=== PATIENT | male | born 1960 | race Two or more races ===

== ENCOUNTER 2018-10-01 15:19 | Inpatient (IN) | payer OTHER ==
[2018-10-01 16:37] LABS: Basophils % (A) 1 %; Eosinophils # (A) 0.3 k/uL (0-0.7); Eosinophils % (A) 5 %; HCT 43.1 % (39.0-53.0); HGB 14.1 gm/dL (13.0-17.5); Lymphocytes # (A) 1.3 k/uL (1.0-4.8); Lymphocytes % (A) 25 %; MCH 32.6 pg (25.0-35.0); MCHC 32.6 g/dL (31.0-37.0); MCV 99.9 fL (80.0-100.0); Mean Platelet Volume 7.3; Monocytes # (A) 0.4 k/uL (0-1.0); Monocytes % (A) 7 %; Neutrophils # (A) 3.2 k/uL (1.3-7.7); Neutrophils % (A) 61 %; Platelet Count 174 k/uL (150-450); RBC 4.31 m/uL (4.30-5.90); RDW 13.7 % (11.5-15.5); WBC 5.3 k/uL (3.8-10.6)
[2018-10-01 16:47] LABS: Calcium 8.9 mg/dL (8.4-10.2); Potassium 4.4 mmol/L (3.5-5.1); Total Bilirubin 0.4 mg/dL (0.2-1.3); Total Protein 6.6 g/dL (6.3-8.2)
[2018-10-01 16:48] LABS: INR 0.9 (<1.2); Prothrombin Time 9.5 sec (9.0-12.0)
--- NOTE | 2018-10-01 16:59 | ED ---
Extremity Problem HPI - General Chief complaint: Extremity Problem,Nontraumatic Stated complaint: rt leg pain Time Seen by Provider: 10/01/18 15:39 Source: patient, RN notes reviewed Mode of arrival: ambulatory Limitations: no limitations - History of Present Illness Initial comments: 58-year-old male presents emergency Department chief complaint of leg pain, leg swelling. Patient states she's had a long history of vascular issues in which she's had multiple varicosities and he's developed sores recently. Patient states that he is supposed to follow-up with vascular years ago but states never did he also states he has a history A. fib with states that he never started anticoagulants. He denies any chest pain or shortness breath this time. Canelo roth states states that he cannot tolerate the pain in his legs anymore. Patient states is much worse when he stands or walks. Patient states that the sores in his right leg have recently developed along with some bluish and purple discoloration - Related Data Previous Rx's Medication Instructions Recorded Aspirin 81 mg PO DAILY #30 chew 02/05/17 Levofloxacin [Levaquin] 750 mg PO Q24H #5 tab 02/05/17 Lisinopril [Zestril] 5 mg PO DAILY #30 tab 02/05/17 Metoprolol Succinate (ER) [Toprol 12.5 mg PO DAILY #30 tab.er.24h 02/05/17 XL] predniSONE See Taper PO DAILY #21 tab 02/05/17 Allergies Allergy/AdvReac Type Severity Reaction Status Date / Time No Known Allergies Allergy Verified 10/01/18 15:32 Review of Systems ROS Statement: Those systems with pertinent positive or pertinent negative responses have been documented in the HPI. ROS Other: All systems not noted in ROS Statement are negative. Past Medical History Past Medical History: No Reported History Additional Past Medical History / Comment(s): alcoholism and smoker History of Any Multi-Drug Resistant Organisms: None Reported Past Surgical History: Tonsillectomy Past Psychological History: Anxiety Smoking Status: Current every day smoker Past Alcohol Use History: Abuse, Daily Past Drug Use History: None Reported - Past Family History Mother Family Medical History: Diabetes Mellitus, Hypertension Father Family Medical History: CVA/TIA, Myocardial Infarction (MS) General Exam Limitations: no limitations General appearance: alert, in no apparent distress Head exam: Present: atraumatic, normocephalic, normal inspection Eye exam: Present: normal appearance, PERRL, EOMI. Absent: scleral icterus, conjunctival injection, periorbital swelling Neck exam: Present: normal inspection, full ROM. Absent: tenderness, mening ismus, lymphadenopathy Respiratory exam: Present: normal lung sounds bilaterally. Absent: respiratory distress, wheezes, rales, rhonchi, stridor Cardiovascular Exam: Present: regular rate, normal rhythm, normal heart sounds. Absent: systolic murmur, diastolic murmur, rubs, gallop, clicks Extremities exam: Present: other (Bilateral lower extremities there are multiple varicosities and spider veins noted, unable to palpate pulses a right lower extremity pedal pulses are warm, , there are open sores to right lower extrem ity) Skin exam: Present: warm, dry Course Vital Signs 10/01/18 15:29 Temperature 97.9 F Pulse Rate 58 L Respiratory 16 Rate Blood Pressure 167/84 O2 Sat by Pulse 98 Oximetry Medical Decision Making - Medical Decision Making 58-year-old male presented for leg pain. Patient does have notable swelling to the right leg. Patient was evaluated by Dr. Sams in the emergency Department who recommends patient be started on heparin he did discuss case with Dr. sanchez who will do angiogram tomorrow patient is NPO after tonight. - Lab Data Result diagrams: 10/01/18 16:23 10/01/18 16:23 Lab Results 10/01/18 10/01/18 10/01/18 Range/Units 16:23 16:23 16:23 WBC 5.3 (3.8-10.6) k/uL RBC 4.31 (4.30-5.90) m/uL Hgb 14.1 (13.0-17.5) gm/dL Hct 43.1 (39.0-53.0) % MCV 99.9 (80.0-100.0) fL MCH 32.6 (25.0-35.0) pg MCHC 32.6 (31.0-37.0) g/dL RDW 13.7 (11.5-15.5) % Plt Count 174 (150-450) k/uL Neutrophils % 61 % Lymphocytes % 25 % Monocytes % 7 % Eosinophils % 5 % Basophils % 1 % Neutrophils # 3.2 (1.3-7.7) k/uL Lymphocytes # 1.3 (1.0-4.8) k/uL Monocytes # 0.4 (0-1.0) k/uL Eosinophils # 0.3 (0-0.7) k/uL Basophils # 0.0 (0-0.2) k/uL PT 9.5 (9.0-12.0) sec INR 0.9 (<1.2) APTT 26.0 (22.0-30.0) sec Sodium 138 (137-145) mmol/L Potassium 4.4 (3.5-5.1) mmol/L Chloride 105 (98-107) mmol/L Carbon Dioxide 27 (22-30) mmol/L Anion Gap 6 mmol/L BUN 18 (9-20) mg/dL Creatinine 1.16 (0.66-1.25) mg/dL Est GFR (CKD-EPI)AfAm 81 (>60 ml/min/1.73 sqM) Est GFR (CKD-EPI)NonAf 70 (>60 ml/min/1.73 sqM) Glucose 78 (74-99) mg/dL Calcium 8.9 (8.4-10.2) mg/dL Total Bilirubin 0.4 (0.2-1.3) mg/dL AST 39 (17-59) U/L ALT 26 (21-72) U/L Alkaline Phosphatase 67 (38-126) U/L Total Protein 6.6 (6.3-8.2) g/dL Albumin 4.0 (3.5-5.0) g/dL Disposition Clinical Impression: Peripheral vascular disease, Arterial insufficiency of lower extremity Disposition: ADMITTED IP TO THIS [facility] Condition: Fair Referrals: None,Stated [Primary Care Provider] - 1-2 days
[2018-10-01] MEDS ORDERED: HEPARIN SODIUM,PORCINE 5,000 UNIT/ML 1 ML VIAL IV ONE (17:00)
[2018-10-01] MEDS ORDERED: NALOXONE 0.4 MG/ML 1 ML VIAL IV PRN (17:01)
[2018-10-01] MEDS ORDERED: ONDANSETRON 4 MG/2 ML VIAL IVP PRN (17:01)
[2018-10-01] MEDS: SODIUM CHLORIDE 0.9% 1,000 ML IV SCH (17:17)
[2018-10-01] MEDS: HEPARIN SOD,PORK IN 0.45% NACL 25,000 UNIT in 0.45% NACL 1 250ML.BAG IV SCH (17:24)
--- NOTE | 2018-10-01 18:55 | CONS ---
DATE OF CONSULTATION: 10/01/2018 This is a 58 -year-old gentleman who came to the emergency room with history of pain in the right lower extremity for the past 1 month. The patient has not seen any physician and there is no history of diabetes. The patient has history of some discomfort in right lower extremity. PHYSICAL EXAMINATION: NECK: Supple. Trachea central. CHEST: Clear. ABDOMEN: Soft. Femorals are 2+ bilateral. Right foot posterior dorsalis pedis is not palpable. Patient has extensive varicosity involving the right lower extremity and anterior aspect of the thigh. The left side patient has a posterior tibial, dorsalis pedis by the Doppler. Motor functions are present on the right foot. IMPRESSION: Occlusive disease, most likely popliteal in right lower extremity. PLAN: We will put him on heparin and the patient will need aortogram with runoff. I have discussed this case with Dr. Chris Lemus and he will arrange for angiogram tomorrow. N.p.o. Midnight. Continue with heparin. Thank you for this consultation. MMYOGESH / KRISTALN: [id number] / MTDBernard
--- NOTE | 2018-10-01 19:45 | CT ---
EXAMINATION TYPE: CT angio abd aorta w/Runoff with contrast and with 3-D reconstruction renderings DATE OF EXAM: 10/01/2018 COMPARISON: None HISTORY: Right sided leg pain CT DLP: 411.7 mGycm, Automated Exposure Control for Dose Reduction was Utilized. CONTRAST: CT scan of the abdomen and pelvis is performed with oral and with IV Contrast, patient inje cted with 125 mL of Isovue 370. FINDINGS: LUNG BASES: No acute findings, but coronary calcifications are noted. LIVER/GB: No significant abnormality is appreciated. PANCREAS: No significant abnormality is seen. SPLEEN: No significant abnormality is seen. ADRENALS: No significant abnormality is seen. KIDNEYS: No significant abnormality is seen. BOWEL: No significant abnormality is seen. PROSTATE/SEMINAL VESICLES: No gross abnormality seen. LYMPH NODES: No greater than 1cm abdominal or pelvic lymph nodes are appreciated. OSSEOUS STRUCTURES: No significant abnormality is seen. VASCULATURE: The abdominal pelvic arterial vasculature is nonaneurysmal. The mesenteric and renal art erial systems are widely patent. The aortoiliac inflow is widely patent. The right internal iliac art erial system occludes shortly after its takeoff. The left internal iliac arterial system is widely pa tent. On the ipsilateral right, the right external iliac, right PICKLE PUMPER, and right profunda femoral artery and collaterals are widely patent. The right SFA occludes approximately 4 cm distal to its origin, recons tituting as the right popliteal artery via collaterals for a 3 vessel runoff. On the contralateral left, the left external iliac artery, PICKLE PUMPER, SFA and profunda femoral arterial sys tems are widely patent, as is the left popliteal artery for a 3 vessel runoff. IMPRESSION: OCCLUDED RIGHT SUPERFICIAL FEMORAL ARTERY, WITH RECONSTITUTION THE RIGHT POPLITEAL ARTERY WITH A 3 VESSEL RUNOFF.
[2018-10-01 19:48] VITALS: BMI 23.7
[2018-10-01] MEDS ORDERED: LORazepam 2 MG/ML INJ IV PRN ×3 (20:25)
--- NOTE | 2018-10-01 20:41 | P.HPIM ---
History of Present Illness H&P Date: 10/01/18 Chief Complaint: Right leg pain and intermittent claudications 58-year-old male with history of paroxysmal A. fib, alcohol dependence and smoking addiction Patient doesn't see a doctor doesn't have insurance. Patient decided come to the hospital today due to worsening pain of his right lower extremity. He reports long history of varicose veins of bilateral lower extremities however due to lack of insurance he was never able to follow up. He noticed over the past month that his pain to right lower extremity has been getting worse he also noticed what seems like intermittent claudication as pain increases over his right thigh and right calf muscle when he walks around and then feels burning sensation that does not radiate rated as 10 out of 10 in severity and this pain will improve with standing up and resting or sitting down. Patient feels that his legs become more heavy toward the end of the day he works as a [employer] and he will be standing up long hours he doesn't use any compression stockings. He doesn't raise his legs above his pelvis when he sits down. He feels a gush of blood flowing down his legs in the morning when he gets out of the bed. He reports itching over his bilateral lower extremities with superficial ulcers due to scratching. Otherwise he denies any shortness of breath fevers or chills. He does report some chest discomfort "heavy chest"when he gets anxious and overworked. But denies any anginal type of pain when he walks long distances however pain in his leg will limit his walking. He denies ever having colonoscopy done or any cardiac workup in the past. He admits to heavy smoking pack and a half every day. And regular alcohol drinking 3-4 beers every day. In the ED he was evaluated by vascular surgery, CT angios the lower extremities showed right superficial femoral artery occlusion plans for angiogram in the morning. Per vascular surgery recommendation patient was started on heparin drip Review of Systems Pertinent positives as noted in HPI. All other systems were reviewed and are negative Past Medical History Past Medical History: No Reported History, Atrial Fibrillation Additional Past Medical History / Comment(s): alcoholism and smoker History of Any Multi-Drug Resistant Organisms: None Reported Past Surgical History: Tonsillectomy Past Anesthesia/Blood Transfusion Reactions: No Reported Reaction Past Psychological History: Anxiety Smoking Status: Current some day smoker Past Alcohol Use History: Abuse, Daily Additional Past Alcohol Use History / Comment(s): pt stated he drank a couple cases of beer a week, currently drinks 3-4 beers a day. Past Drug Use History: None Reported - Past Family History Mother Family Medical History: Diabetes Mellitus, Hypertension Father Family Medical History: CVA/TIA, Myocardial Infarction (SD) Medications and Allergies Home Medications Medication Instructions Recorded Confirmed Type No Known Home Medications 10/01/18 10/01/18 History Allergies Allergy/AdvReac Type Severity Reaction Status Date / Time No Known Allergies Allergy Verified 10/01/18 18:07 Physical Exam Vitals: Vital Signs Temp Pulse Pulse Resp BP BP Pulse Ox 10/01/18 19:14 98 F 85 18 158/74 98 10/01/18 18:54 98.2 F 64 18 160/70 98 10/01/18 18:47 98.6 F 73 15 153/86 97 10/01/18 15:29 97.9 F 58 L 16 167/84 98 Intake and Output 10/01/18 10/01/18 10/01/18 06:59 14:59 22:59 Intake Total 580 Balance 580 Intake: Intake, IV Titration 100 Amount Sodium Chloride 0.9% 1, 100 000 ml @ 100 mls/hr IV . Q10H [facility] Rx#:[id number] Oral 480 Other: Weight 72.575 kg Constitutional: No acute distress, conversant, pleasant Eyes: Anicteric sclerae, moist conjunctiva, no lid-lag Pupils equal round reactive to light ENMT: NC/AT Oropharynx clear, no erythema, exudates Neck: Supple, FROM, no masses, or JVD No carotid bruits No thyromegaly Lungs: Clear to auscultation Clear to percussion Normal respiratory effort, no accessory muscle use Cardiovascular: Heart regular in rate and rhythm, No murmurs, gallops, or rubs No peripheral edema Abdominal: Soft Nontender, no guarding, rebound or rigidity Abdomen moving with respiration Normoactive bowel sounds No hepatomegaly, No splenomegaly No palpable mass No abdominal wall hernia noted Skin: Diffuse superficial varicose veins bilateral lower extremity with superficial ulcers covered by his, surrounded by slight erythema no induration no drainage , chronic skin changes over bilateral feet worse on the right compared to the left with purplish discoloration of the right foot Otherwise Normal temperature, tone, texture, turgor Extremities: Capillary refill is immediate over bilateral toes No digital cyanosis No clubbing Dorsalis pedis and tibialis artery on the right side is weak, palpable over the left side tibialis artery but not the dorsalis pedis No calf tenderness Psychiatric: Alert and oriented to person, place and time Appropriate affect fair judgment Neuro Muscles Strength 5/5 in all 4 extremities Sensation to light touch grossly present throughout Cranial nerves II-XII grossly intact No focal sensory deficits Lymphatics: no palpable cervical or supraclavicular , or inguinal lymph nodes Results CBC & Chem 7: 10/01/18 16:23 10/01/18 16:23 Thrombosis Risk Factor Assmnt - Choose All That Apply Any of the Below Risk Factors Present?: Yes Each Factor Represents 1 point: Age 41-60 years, Swollen legs (current), Varicose veins Thrombosis Risk Factor Assessment Total Risk Factor Score: 3 Thrombosis Risk Factor Assessment Level: Moderate Risk Assessment and Plan Assessment: 58-year-old male with history of paroxysmal A. fib and bilateral varicose veins admitted as an inpatient with anticipated length of stay more than 48 hours due to acute right femoral artery occlusion with severe intermittent claudications and pain of the right lower extremity along with bilateral lower extremity varicose veins. Patient also reports history of alcohol dependence Plan: right superficial femoral artery occlusion Severe intermittent claudications of right lower extremities Varicose veins of bilateral lower extremities paroxysmal A. fib Alcohol dependence Plan Patient was evaluated by vascular surgery Dr. Grace recommended angiogram by Dr. Fagan in the morning CT angiogram of the lower extremities reviewed showed right superficial femoral artery occlusion reconstituting as the right popliteal artery via collaterals for three-vessel runoff continue IV heparin per vascular recommendations check echo cardiogram with histroy of P afib pain control elevate legs Aspirin and statin alcohol withdrawal precautions thiamin benzo prn per [facility] group social worker consult to assist with insurance Tobacco smoking Dictating replacement therapy offered Patient counseled heavily to quit smoking, spent more than 8 minutes in counseling Surrogate decision-maker: MANDY NOYOLA CODE STATUS:full code DVT prophylaxis: on heparin drip Discussed with: Patient, ER , RN Anticipated discharge: 48-[address]: home A total of 60 minutes was spent on the care of this complex patient more than 50% of the time was spent in counseling and care coordination.
[2018-10-01] MEDS: ATORVASTATIN 40 MG TAB PO SCH (21:07)
[2018-10-01] MEDS: HYDROcodone/APAP 5-325MG 1 EACH TAB PO PRN (21:07)
[2018-10-01] MEDS: MELATONIN 3 MG TABLET PO SCH (21:07)
[2018-10-01] MEDS: ASPIRIN 325 MG TAB PO SCH (21:07)
[2018-10-01] MEDS: NICOTINE 21MG/24HR PATCH TRANSDERM SCH (21:08)
[2018-10-02] MEDS: HYDROcodone/APAP 5-325MG 1 EACH TAB PO PRN ×4 (01:49→23:26)
[2018-10-02] MEDS: SODIUM CHLORIDE 0.9% 1,000 ML IV SCH ×3 (04:38→23:56)
[2018-10-02] MEDS: ASPIRIN 325 MG TAB PO SCH (08:16)
[2018-10-02] MEDS: THIAMINE 100 MG TAB PO SCH ×2 (08:16→16:54)
[2018-10-02 08:17] LABS: INR 0.9 (<1.2); Prothrombin Time 9.7 sec (9.0-12.0)
[2018-10-02] MEDS: NICOTINE 21MG/24HR PATCH TRANSDERM SCH (08:17)
[2018-10-02 08:20] LABS: Cholesterol 143 mg/dL (<200); HDL Cholesterol 63 mg/dL (40-60); LDL Cholesterol,Calculated 68 mg/dL (0-99); Triglycerides 62 mg/dL (<150)
--- NOTE | 2018-10-02 09:04 | P.PN ---
Subjective Progress Note Date: 10/02/18 Patient is seen and examined. Foot feels a little better but essentially the same as yesterday. In discussion and gave that he has had this pain in his legs for the past month and a half to 2 months. He gets some sharp shooting pains in his foot, and also some cramping in his calf when he does activities. He has significant varicosities and heaviness of his leg space and lot of time on his feet. He came in yesterday only because he was frustrated and fed up with his chronic type pains. No significant acute event or change in his pain overall Objective - Vital Signs Vital signs: Vital Signs Temp 98.0 F 10/02/18 04:00 Pulse 55 L 10/02/18 04:00 Resp 15 10/02/18 04:00 BP 128/67 10/02/18 04:00 Pulse Ox 96 10/02/18 04:00 Intake & Output 10/01/18 10/02/18 10/02/18 18:59 06:59 18:59 Intake Total 580 871.849 Balance 580 871.849 Weight 72.575 kg Intake: Intake, IV Titration 100 871.849 Amount Heparin Sod,Pork in 0.45% 71.849 NaCl 25,000 unit In 0.45 % NaCl 1 250ml.bag @ 12 UNITS/KG/HR 8.709 mls/hr IV .Q24H [facility] Rx#: [id number] Sodium Chloride 0.9% 1, 100 800 000 ml @ 100 mls/hr IV . Q10H [facility] Rx#:[id number] Oral 480 Other: Voiding Method Toilet # Voids 2 - Exam No acute distress resting comfortably, disheveled HEENT normocephalic atraumatic Heart regular Lungs clear Abdomen soft Bilateral lower extremities with severe varicosities in the bilateral legs. On the left lower extremity has a palpable posterior tibial pulse. No evident large wounds. On the right lower extremity at the level of the calf there are 2 areas of excoriation and wound. They're clean, no evidence of infection. There are no palpable pulses in his right foot. His foot is warm. There is capillary refill. He is motor sensory intact. Both of his feet are dirty - Labs CBC & Chem 7: 10/01/18 16:23 10/01/18 16:23 Labs: Abnormal Lab Results - Last 24 Hours (Table) 10/01/18 10/02/18 10/02/18 Range/Units 22:10 07:43 07:45 APTT 43.4 H 47.0 H (22.0-30.0) sec HDL Cholesterol 63 H (40-60) mg/dL Assessment and Plan Assessment: #1 right lower cavity pain #2 right superficial femoral artery occlusion with reconstitution at the popliteal artery and three-vessel runoff #3 bilateral lower extremity venous insufficiency with varicosities Plan: Given the fact this is not an acute ischemia, no urgency or emergency to perform angiogram. Continue heparin drip at this time. We'll perform angiogram terrance orrow with possible intervention. Patient is anxious and somewhat demanding of a timeframe to leave. It was offered him the opportunity to be discharged and do this as an outpatient, but he refused and stated he would like to go along with the plan to do this inpatient. We'll attempt endovascular repair, may need bypass if no endovascular treatment available
--- NOTE | 2018-10-02 11:54 | ECHOF ---
Referral Reason:P afib, now with occlusion of right SFA MEASUREMENTS -------- HEIGHT: 177.8 cm WEIGHT: 72.6 kg BP: 128/67 RVIDd: 4.0 cm (< 3.3) IVSd: 1.0 cm (0.6 - 1.1) LVIDd: 5.1 cm (3.9 - 5.3) LVPWd: 1.0 cm (0.6 - 1.1) IVSs: 1.1 cm LVIDs: 3.8 cm LVPWs: 1.4 cm LAESV Index (A-L): 40.61 ml/m Ao Diam: 2.9 cm (2.0 - 3.7) AV Cusp: 1.9 cm (1.5 - 2.6) LA Diam: 4.4 cm (2.7 - 3.8) EPSS: 0.3 cm MV E Srinivasa: 0.96 m/s MV DecT: 237 ms MV A Srinivasa: 0.41 m/s MV E/A Ratio: 2.33 AR PHT: 749 ms RAP: 5.00 mmHg RVSP: 35.50 mmHg MV EF SLOPE: 108.68 mm/s (70 - 150) MV EXCURSION: 1.99 cm (> 18.000) FINDINGS -------- Sinus rhythm with extra systolic beats. This was a technically good study. The left ventricular size is normal. Left ventricular wall thickness is normal. Overall left vent ricular systolic function is mildly impaired with, an EF between 45 - 50 %. Both the mean atrial pr essure as well as the LV end diastolic pressure is elevated. The right ventricle is severely enlarged. Left atrium is severely dilated by volume. The right atrium is mildly enlarged. Interatrial and interventricular septum intact. The aortic valve is trileaflet and appears structurally normal. Trace to mild aortic regurgitation. There is no evidence of aortic stenosis. The mitral valve leaflets are mildly thickened. [id number] mitral regurgitation is present. Mild tricuspid regurgitation present. There is mild pulmonary hypertension. The right ventricular systolic pressure, as measured by Doppler, is 35.50mmHg. Trace/mild (physiologic) pulmonic regurgitation. The aortic root size is normal. The inferior vena cava is mildly dilated. There is no pericardial effusion. CONCLUSIONS -------- 1. Sinus rhythm with extra systolic beats. 2. This was a technically good study. 3. The left ventricular size is normal. 4. Left ventricular wall thickness is normal. 5. Overall left ventricular systolic function is mildly impaired with, an EF between 45 - 50 %. 6. Both the mean atrial pressure as well as the LV end diastolic pressure is elevated. 7. The right ventricle is severely enlarged. 8. Left atrium is severely dilated by volume. 9. The right atrium is mildly enlarged. 10. Interatrial and interventricular septum intact. 11. The aortic valve is trileaflet and appears structurally normal. 12. Trace to mild aortic regurgitation. 13. There is no evidence of aortic stenosis. 14. The mitral valve leaflets are mildly thickened. 15. [id number] mitral regurgitation is present. 16. Mild tricuspid regurgitation present. 17. There is mild pulmonary hypertension. 18. The right ventricular systolic pressure, as measured by Doppler, is 35.50mmHg. 19. Trace/mild (physiologic) pulmonic regurgitation. 20. The aortic root size is normal. 21. The inferior vena cava is mildly dilated. 22. There is no pericardial effusion. SUIT MAKER: Jen Sandoval RDCS
--- NOTE | 2018-10-02 13:35 | P.PN ---
Subjective Progress Note Date: 10/02/18 The patient is seen and examined and follow-up, and reports pain in his right lower extremities controlled. Patient does have scattered arterial ulcers on his legs bilaterally, reports that the swelling of the right lower extremity is much improved. Denies any severe redness or subjective fevers or chills Objective - Vital Signs Vital signs: Vital Signs Temp 98.1 F 10/02/18 12:00 Pulse 74 10/02/18 12:00 Resp 16 10/02/18 12:00 BP 142/67 10/02/18 12:00 Pulse Ox 95 10/02/18 12:00 Intake & Output 10/01/18 10/02/18 10/02/18 18:59 06:59 18:59 Intake Total 580 871.849 Balance 580 871.849 Weight 72.575 kg Intake: Intake, IV Titration 100 871.849 Amount Heparin Sod,Pork in 0.45% 71.849 NaCl 25,000 unit In 0.45 % NaCl 1 250ml.bag @ 12 UNITS/KG/HR 8.709 mls/hr IV .Q24H [facility] Rx#: [id number] Sodium Chloride 0.9% 1, 100 800 000 ml @ 100 mls/hr IV . Q10H [facility] Rx#:[id number] Oral 480 Other: Voiding Method Toilet Toilet # Voids 2 - Exam Constitutional: No acute distress, conversant, pleasant Eyes: Anicteric sclerae, moist conjunctiva, no lid-lag, PERRLA ENMT: NC/AT,Oropharynx clear, no erythema, exudates Neck:Supple, FROM, no masses, or JVD, No carotid bruits; No thyromegaly Lungs: Clear to auscultation, Clear to percussion, Normal respiratory effort, no accessory muscle use Cardiovascular: Heart regular in rate and rhythm, No murmurs, gallops, or rubs no peripheral edema Abdominal: Soft Nontender, nom distended, no guarding, no rebound or rigidity, Normoactive bowel sounds No hepatomegaly, No splenomegaly, No palpable mass No abdominal wall hernia noted Skin: Normal temperature, tone, texture, turgor, No induration No subcutaneous nodules, No rash, lesions, arterial ulcers without signs of infection Extremities: Bilateral lower extremity varicosities palpable left posterior tibial pulse, no palpable pulses in the right foot, warm, with capillary refill, Psychiatric: Alert and oriented to person, place and time, Appropriate affect Intact judgement Neuro: Muscles Strength 5/5 in all 4 extremities, Sensation to light touch grossly present throughout, Cranial nerves II-XII grossly intact. No focal sensory deficits - Labs CBC & Chem 7: 10/01/18 16:23 10/01/18 16:23 Labs: Abnormal Lab Results - Last 24 Hours (Table) 10/01/18 10/02/18 10/02/18 Range/Units 22:10 07:43 07:45 APTT 43.4 H 47.0 H (22.0-30.0) sec HDL Cholesterol 63 H (40-60) mg/dL Assessment and Plan (1) Arterial insufficiency of lower extremity Narrative/Plan: * CT angiography of the leg indicating Right superficial femoral artery occlusion with reconsideration of the popliteal artery three-vessel runoff * Likely acute on chronic * Appreciate Dr. Nuno's recommendation planning to do arterial angiography with possible thrombolysis tomorrow with possible endovascular repair * Continue heparin drip per protocol * Continue aspirin and statins Current Visit: Yes Status: Acute Code(s): I73.9 - PERIPHERAL VASCULAR DISEASE, UNSPECIFIED SNOMED Code(s): 610685069354708 (2) Peripheral vascular disease Narrative/Plan: * Treatment as above Current Visit: Yes Status: Chronic Code(s): I73.9 - PERIPHERAL VASCULAR DISEASE, UNSPECIFIED SNOMED Code(s): 898988717 (3) History of atrial fibrillation Narrative/Plan: * History of Paroxysmal A. fib * Currently in sinus rhythm Current Visit: Yes Status: Acute Code(s): Z86.79 - PERSONAL HISTORY OF OTHER DISEASES OF THE CIRCULATORY SYSTEM SNOMED Code(s): 034090144 (4) Systolic CHF Narrative/Plan: * Ejection fraction with mildly impaired EF of 45-50%, severely dilated left atrium, mild to moderate MR, mild TR and mild pulmonary artery hypertension * Clinically euvolemic without an acute exacerbation at this time Current Visit: Yes Status: Chronic Code(s): I50.20 - UNSPECIFIED SYSTOLIC (CONGESTIVE) HEART FAILURE SNOMED Code(s): 44933701 (5) Tobacco abuse Narrative/Plan: * Initiate a nicotine transdermal patch Current Visit: No Status: Chronic Code(s): Z72.0 - TOBACCO USE SNOMED Code(s): 081595731 (6) Chronic alcohol dependence, continuous Narrative/Plan: * Continuous symptom triggered CIWA protocol with Ativan Current Visit: Yes Status: Chronic Code(s): F10.20 - ALCOHOL DEPENDENCE, UNCOMPLICATED SNOMED Code(s): 137604323 Plan: * Continue current management * Cardiology consulted for preop clearance, also might need anticoagulation ongoing given patient does have heart failure and history of A. fib * Appreciate consultants recommendations and plan of care
[2018-10-02] MEDS: HEPARIN SOD,PORK IN 0.45% NACL 25,000 UNIT in 0.45% NACL 1 250ML.BAG IV SCH (16:54)
[2018-10-02] MEDS: MELATONIN 3 MG TABLET PO SCH (21:47)
[2018-10-02] MEDS: ATORVASTATIN 40 MG TAB PO SCH (21:47)
[2018-10-02] MEDS ORDERED: HEPARIN SODIUM,PORCINE 5,000 UNIT/ML 1 ML VIAL IV PRN (22:27)
[2018-10-03 06:14] LABS: INR 0.9 (<1.2); Partial Thromboplastin Time 45.2 sec (22.0-30.0); Prothrombin Time 9.9 sec (9.0-12.0)
[2018-10-03] MEDS ORDERED: MIDAZOLAM (PF) 2 MG/2 ML VIAL IVP ONE (07:50)
[2018-10-03] MEDS: fentaNYL (PF) 50 MCG/ML 2 ML AMP IV ONE ×2 (07:50→09:04)
[2018-10-03] MEDS ORDERED: LIDOCAINE 1% INJ 10MG/ML (20 ML MDV) SQ ONE (07:51)
[2018-10-03] MEDS ORDERED: SODIUM CHLORIDE 0.9% 500 ML 500 ML IV ONE (07:52)
[2018-10-03] MEDS ORDERED: HEPARIN SODIUM 1,000 UN/ML (10ML VL) IV ONE (08:07)
[2018-10-03] MEDS ORDERED: ALTEPLASE 10 MG in SODIUM CHLORIDE 0.9% 50 ML IVPB ONE (08:29)
[2018-10-03] MEDS ORDERED: ALTEPLASE BOLUS 1 MG/1 ML SYRINGE IV ONE (08:44)
[2018-10-03] MEDS ORDERED: ALTEPLASE 2 MG VIAL (CATHFLO) IV ONE (08:45)
[2018-10-03] MEDS ORDERED: IOPAMIDOL-250 100ML BTL INTRAARTER ONE (09:04)
[2018-10-03] MEDS ORDERED: HEPARIN SOD,PORK IN 0.45% NACL 25,000 UNIT in 0.45% NACL 1 250ML.BAG IV ONE (09:05)
[2018-10-03 09:36] LABS: Glucose,Whole Blood 93 mg/dL (75-99)
--- NOTE | 2018-10-03 09:37 | P.OP ---
Date of Procedure: 10/03/18 Description of Procedure: Preoperative diagnosis: Acute on chronic right lower extremity ischemia, [place] 4 Postoperative diagnosis: Same, superficial femoral artery occlusion with reconstitution at the popliteal artery, 3 vessel runoff below knee Procedure: #1 ultrasound guided left common femoral artery access #2 aortoiliac angiogram #3 selective right lower extremity angiogram #4 third order right lower extremity infrapopliteal angiogram #5 initiation of thrombolysis with 30cm unifuse catheter #6 moderate conscious sedation utilizing Versed and fentanyl, 59 minutes Surgeon: Karolina Nuno D.O. EBL: Minimal Urine output: Not measured Complications: None Condition: Stable, to ICU Operative indication and findings: The patient is a 58-year-old male who came in for right lower excision the pain. He has been having this for at least the past month and a half. He has cramping in his leg and recently began having more significant continuous pain into his foot. He still is motor sensory intact. He has not seen a physician in the past. He has palpable pulses on his left lower extremity. On his right there are no palpable pulses. On CT angiogram he had evidence of an occluded right superficial femoral artery with reconstitution at the popliteal artery. This was confirmed on our imaging with 3 vessel runoff below the knee Procedure in detail: The patient was taken to the special suite and placed in supine position the bilateral groins were prepped and draped in usual sterile f ashion. A preprocedure timeout was performed, all parties are in agreement. Moderate conscious sedation was initiated. The ultrasound was utilized in the left common femoral artery was identified. The skin overlying this is likely plain and a micropuncture needle was utilized. The artery was cannulated under ultrasound guidance and Seldinger technique was performed place a 5-Luxembourger sheath. A wire was placed along with an RBI catheter, and aortoiliac angiogram was performed. The right lower exam he was selected and the catheter was passed. An angiogram of the right lower extremity was performed revealing occlusion of the right superficial femoral artery approximate 4-5 cm beyond the bifurcation with reconstitution at the level of the above-knee popliteal artery. Utilizing a glide advantage and trailblazer, the lesion was crossed. That did appear to be somewhat more soft field to the area crossed. Given this along with the imaging previously, it was found the patient be best served by thrombolysis to better delineate the pathology. A infrapopliteal injury and was performed confirming true lumen at this spot. The trailblazer catheter was removed, a 6 Bárbara sheath was placed. A 135 x 30 length infusion catheter was placed. All sites were sutured in place. TPA 4 mg was instilled into the catheter and then a TPA drip was initiated, 1 mg per hour. We will come back for repeat imaging and TPA rechecked tomorrow.
[2018-10-03 10:24] LABS: Basophils % (A) 1 %; Eosinophils # (A) 0.2 k/uL (0-0.7); Eosinophils % (A) 4 %; HCT 48.3 % (39.0-53.0); HGB 15.7 gm/dL (13.0-17.5); Lymphocytes % (A) 21 %; MCH 33.3 pg (25.0-35.0); MCHC 32.6 g/dL (31.0-37.0); Macrocytosis Slight; Mean Platelet Volume 7.6; Monocytes # (A) 0.3 k/uL (0-1.0); Monocytes % (A) 6 %; Neutrophils # (A) 3.4 k/uL (1.3-7.7); Neutrophils % (A) 68 %; Platelet Count 145 k/uL (150-450); RBC 4.73 m/uL (4.30-5.90); RDW 14.7 % (11.5-15.5)
[2018-10-03 10:34] LABS: African American GFR (CKD) >90 (>60 ml/min/1.73 sqM); Anion Gap 4 mmol/L; Blood Urea Nitrogen 10 mg/dL (9-20); Calcium 8.6 mg/dL (8.4-10.2); Carbon Dioxide 29 mmol/L (22-30); Chloride 105 mmol/L (98-107); Glucose 126 mg/dL (74-99); Potassium 4.5 mmol/L (3.5-5.1); Sodium 138 mmol/L (137-145)
[2018-10-03 10:49] LABS: INR 0.9 (<1.2); Partial Thromboplastin Time 53.9 sec (22.0-30.0); Prothrombin Time 9.8 sec (9.0-12.0)
--- NOTE | 2018-10-03 10:51 | P.CNPUL ---
History of Present Illness Consult date: 10/03/18 Requesting physician: Dora Sheehan Reason for consult: other (Critical care management) Chief complaint: Right lower extremity tingling and numbness pain History of present illness: This is a very pleasant 58-year-old gentleman with no current primary care physician, a history of paroxysmal atrial fibrillation, daily alcohol dependence. He does have a 26 year smoking history at 1-1-1/2 packs per day. He does take Claritin for occasional sinus issues. 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 He does have multiple varicosities of the lower extremities. He has been having ongoing issues with lower right extremity discomfort. Mostly that and pain tingling and numbness. Dramatic claudication. He's noted some discoloration as well. He presented to the emergency room on 10/01/[address] angiogram revealed occluded right superficial femoral artery with reconstitution his right popliteal artery with a 3 vessel runoff. Echocardiogram revealed mildly impaired left ventricular systolic function with ejection fraction 45-50%. Early this morning he was seen by vascular surgery and had undergone an ultrasound-guided left common femoral artery access, aortoiliac angiogram and initiation of thrombolytic lysis with 30 cm in diffuse catheter placement. He was returned here to the intensive care unit while the alteplase is infusing. He is seen this morning in consultation in the ICU. He is awake and alert in no acute distress. No shortness of breath, cough or congestion. Maintaining good O2 saturations in the 90s on room air. 0.9 normal saline at 100. Alteplase infusing at 1 mg per hour. Catheter placed to the left femoral artery and the tip in the right lower extremity towards the popliteal artery. Doppler pedal pulses are present. White count 5.0. Hemoglobin 15.7. NicoDerm patch in place. He's been placed in the CIWA protocol. Review of Systems REVIEW OF SYSTEMS: CONSTITUTIONAL: Denies any recent significant weight loss or weight gain. EYES: Denies change in vision. EARS, NOSE, MOUTH, THROAT: Denies headaches, denies sore throat. CARDIOVASCULAR: Denies chest pain, palpitations or syncopal episodes. RESPIRATORY: Denies shortness of breath, cough, congestion or hemoptysis. GASTROINTESTINAL: Denies change in appetite, denies abdominal pain GENITOURINARY: Denies hematuria, denies infections. MUSKULOSKELETAL: Positive for right lower extremity pain, tingling, numbness, swelling, discoloration INTEGUMENTARY: Denies rash, denies eczema. NEUROLOGICAL: Denies recent memory loss, no recent seizure activity. PSYCHIATRIC: Denies anxiety, denies depression. HEMATOLOGIC/LYMPHATIC: Denies anemia, denies enlarged lymph nodes. Past Medical History Past Medical History: No Reported History, Atrial Fibrillation Additional Past Medical History / Comment(s): alcoholism and smoker History of Any Multi-Drug Resistant Organisms: None Reported Past Surgical History: Tonsillectomy Past Anesthesia/Blood Transfusion Reactions: No Reported Reaction Past Psychological History: Anxiety Smoking Status: Current some day smoker Past Alcohol Use History: Abuse, Daily Additional Past Alcohol Use History / Comment(s): pt stated he drank a couple cases of beer a week, currently drinks 3-4 beers a day. Past Drug Use History: None Reported - Past Family History Mother Family Medical History: Diabetes Mellitus, Hypertension Additional Family Medical History / Comment(s): Family history of varicose veins. Father Family Medical History: CVA/TIA, Myocardial Infarction (DE) Medications and Allergies Home Medications Medication Instructions Recorded Confirmed Type No Known Home Medications 10/01/18 10/01/18 History Allergies Allergy/AdvReac Type Severity Reaction Status Date / Time No Known Allergies Allergy Verified 10/01/18 18:07 Physical Exam Vitals: Vital Signs Temp Pulse Pulse Pulse Pulse Resp BP 10/03/18 06:39 96 F L 70 16 116/72 10/03/18 04:28 98.0 F 58 L 15 151/69 10/03/18 03:19 98 F 58 L 15 151/69 10/03/18 00:00 97.7 F 61 61 61 61 16 121/66 10/02/18 20:00 98.4 F 42 L 16 140/76 10/02/18 16:00 97.8 F 45 L 16 143/78 10/02/18 12:00 98.1 F 74 16 142/67 Pulse Ox 10/03/18 06:39 98 10/03/18 04:28 98 10/03/18 03:19 98 10/03/18 00:00 96 10/02/18 20:00 97 10/02/18 16:00 93 L 10/02/18 12:00 95 Intake and Output 10/02/18 10/03/18 10/03/18 22:59 06:59 14:59 Intake Total 163.312 146.713 200 Output Total 1100 2200 Balance -936.688 -2053.287 200 Intake: IV 200 Intake, IV Titration 163.312 146.713 Amount Heparin Sod,Pork in 0.45% 163.312 146.713 NaCl 25,000 unit In 0.45 % NaCl 1 250ml.bag @ 12 UNITS/KG/HR 8.709 mls/hr IV .Q24H [facility] Rx#: [id number] Output: Urine 1100 2200 Other: Voiding Method Urinal Urinal # Voids 2 2 GENERAL EXAM: A pleasant 58 year old gentleman. Alert, comfortable in no apparent distress. On room air. HEAD: Normocephalic. EYES: Normal reaction of pupils, equal size. NOSE: Clear with pink turbinates. THROAT: No erythema or exudates. NECK: No masses, no JVD. CHEST: No chest wall deformity. LUNGS: Equal air entry with no crackles, wheeze, rhonchi or dullness. CVS: S1 and S2 normal with no audible murmur, regular rhythm. ABDOMEN: No hepatosplenomegaly, normal bowel sounds, no guarding or rigidity. SPINE: No scoliosis or deformity SKIN: No rashes CENTRAL NERVOUS SYSTEM: No focal deficits, tone is normal in all 4 extremities. EXTREMITIES: There is a left femoral catheter placed with its tip in the right popliteal area with TPA infusion. Doppler pulses are present. Results - Laboratory Findings CBC and BMP: 10/03/18 09:50 10/01/18 16:23 PT/INR, D-dimer PT 9.9 sec (9.0-12.0) 10/03/18 05:40 INR 0.9 (<1.2) 10/03/18 05:40 Abnormal lab findings: Abnormal Labs 10/01/18 10/02/18 10/02/18 22:10 07:43 07:45 MCV Plt Count APTT 43.4 H 47.0 H HDL Cholesterol 63 H 10/03/18 10/03/18 05:40 09:50 MCV 102.0 H Plt Count 145 L APTT 45.2 H HDL Cholesterol Assessment and Plan Assessment: Impression: #1 Right lower extremity pain, tingling, numbness with discoloration found to have occlusion. Status post left femoral catheter placement with the tip to the right popliteal area. TPA infusing. Doppler pulses present. #2 History of varicose veins. #3 Chronic and ongoing tobacco dependence of greater than 20 years at 1-1-1/2 packs per day. #4 History of paroxysmal atrial fibrillation. #5 History of daily alcohol use. Plan: The patient was seen and evaluated by Dr. Ibanez. He is stable from the pulmonary and critical care standpoint. He is receiving TPA infusion to the right lower extremity via a left femoral catheter. He is educated regarding the importance of complete smoking cessation. NicoDerm patch is in place. He is also on the [facility] protocol for history of daily alcohol use. Plan is for reevaluation by vascular surgeons tomorrow. We'll continue him here in the intensive care unit for now. We'll continue to follow and make further recommendations based on his clinical status. I, the cosigning physician, performed a history & physical examination of the patient. Lungs sounds are clear. Maintaining good O2 saturations in the 90s on room air. I discussed the assessment and plan of care with my nurse practitioner, Chen Bender. I attest to the above note as dictated by her. Time with Patient: Greater than 30
[2018-10-03] MEDS ORDERED: HEPARIN SOD,PORK IN 0.45% NACL 25,000 UNIT in 0.45% NACL 1 250ML.BAG IV SCH (11:00)
[2018-10-03] MEDS: THIAMINE 100 MG TAB PO SCH ×2 (11:29→18:57)
[2018-10-03] MEDS: ASPIRIN 325 MG TAB PO SCH (11:29)
[2018-10-03] MEDS: METOPROLOL TARTRATE 25 MG TAB PO SCH ×2 (11:29→20:59)
[2018-10-03] MEDS: NICOTINE 21MG/24HR PATCH TRANSDERM SCH (11:29)
[2018-10-03] MEDS: SODIUM CHLORIDE 0.9% 1,000 ML IV SCH ×2 (11:30→20:57)
[2018-10-03] MEDS: HYDROcodone/APAP 5-325MG 1 EACH TAB PO PRN (11:33)
[2018-10-03] MEDS: ALTEPLASE 10 MG in SODIUM CHLORIDE 0.9% 50 ML IVPB SCH (14:17)
[2018-10-03] MEDS: MORPHINE SULFATE 4 MG/ML SYRINGE IV PRN ×2 (14:19→20:58)
[2018-10-03 17:00] LABS: Basophils % (A) 0 %; Eosinophils # (A) 0.2 k/uL (0-0.7); Eosinophils % (A) 3 %; HCT 47.2 % (39.0-53.0); HGB 15.5 gm/dL (13.0-17.5); Lymphocytes # (A) 1.2 k/uL (1.0-4.8); Lymphocytes % (A) 15 %; MCH 33.3 pg (25.0-35.0); MCHC 32.9 g/dL (31.0-37.0); MCV 101.3 fL (80.0-100.0); Macrocytosis Slight; Mean Platelet Volume 7.9; Monocytes # (A) 0.5 k/uL (0-1.0); Monocytes % (A) 7 %; Neutrophils # (A) 5.8 k/uL (1.3-7.7); Neutrophils % (A) 74 %; Platelet Count 157 k/uL (150-450); RBC 4.65 m/uL (4.30-5.90); RDW 14.7 % (11.5-15.5); WBC 7.9 k/uL (3.8-10.6)
[2018-10-03 17:11] LABS: Partial Thromboplastin Time 31.7 sec (22.0-30.0)
--- NOTE | 2018-10-03 17:46 | P.PN ---
Subjective Progress Note Date: 10/03/18 (delayed charting seen at 1015) Principal diagnosis: Right leg pain Patient is a 58-year-old male with a medical history of paroxysmal atrial fibrillation, alcohol dependence, and smoking addiction who presented to the emergency department with complaints of worsening pain in his right lower extremity. On arrival his vital signs showed a slightly elevated blood pressure 167/84. Initial laboratory analysis is unremarkable. He underwent a CT angiogram of the leg. It being cold with faint pulses. This shows an occluded right superficial femoral artery with reconstruction at the right popliteal artery with 3 vessel runoff. Vascular surgeon was consulted and he was placed in observation. Patient was started on a heparin drip. On the morning of 10/03 he underwent an angiogram which showed thrombus as well as possible stenosis in the right superficial femoral artery. He had a catheter placed for catheter directed TPA and was subsequently admitted to the ICU. He was noted to have persistently elevated blood pressures and was subsequently started on meto prolol. Echocardiogram was obtained which showed an ejection fraction of 45-50% with a severely dilated left atrium, moderate to mild mitral regurgitation and mild pulmonary hypertension. 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 He complains of feeling hungry. He denies any lightheadedness, chest pain, shortness of breath, nausea, or vomiting. He does continue to have some pain in his right foot as well as ulcers. He has frequent antibiotic for his ulcers and we spent time explaining that these are likely due to poor circulation and no antibiotic is indicated at this point in time. Objective - Vital Signs Vital signs: Vital Signs Temp 98.1 F 10/03/18 16:00 Pulse 56 L 10/03/18 17:00 Resp 7 L 10/03/18 17:00 BP 137/88 10/03/18 17:00 Pulse Ox 98 10/03/18 16:00 Intake & Output 10/02/18 10/03/18 10/03/18 18:59 06:59 18:59 Intake Total 163.312 641.436 3486 Output Total 3300 1100 Balance 163.312 -3153.287 1300 Intake: IV 200 Intake, IV Titration 163.312 146.713 840 Amount Alteplase 10 mg In Sodium 40 Chloride 0.9% 50 ml @ 1 MG/HR 5 mls/hr IVPB Q10H [facility] Rx#:[id number] Heparin Sod,Pork in 0.45% 163.312 146.713 NaCl 25,000 unit In 0.45 % NaCl 1 250ml.bag @ 12 UNITS/KG/HR 8.709 mls/hr IV .Q24H [facility] Rx#: [id number] Sodium Chloride 0.9% 500 800 ml 500 ml @ 0 mls/hr IV . [facility] Rx#: [id number] Oral 1360 Output: Urine 3300 1100 Other: Voiding Method Urinal Urinal Urinal # Voids 2 - Exam General: non toxic, no distress, appears older than stated age Derm: Purple discoloration of the bilateral feet, bilateral lower extremities with ulcerations that are red without any purulence or significant drainage, warm, dry Head: atraumatic, normocephalic, symmetric Eyes: EOMI, no lid lag, anicteric sclera Mouth: no lip lesion, mucus membranes moist Cardiovascular: S1S2 irreg, no murmur, Lungs: Decreased Sounds bilateral, no rhonchi, no rales , no accessory muscle use Abdominal: soft, nontender to palpation, no guarding, no appreciable organomegaly Ext: no gross muscle atrophy, no edema, no contractures Neuro: CN II-XI grossly intact, no focal neuro deficits Psych: Alert, oriented, appropriate affect - Labs CBC & Chem 7: 10/03/18 16:40 10/03/18 16:40 Labs: Abnormal Lab Results - Last 24 Hours (Table) 10/03/18 10/03/18 10/03/18 Range/Units 05:40 09:50 09:50 MCV 102.0 H (80.0-100.0) fL Plt Count 145 L (150-450) k/uL APTT 45.2 H 53.9 H (22.0-30.0) sec Glucose (74-99) mg/dL 10/03/18 10/03/18 10/03/18 Range/Units 09:50 16:40 16:40 MCV 101.3 H (80.0-100.0) fL Plt Count (150-450) k/uL APTT 31.7 H (22.0-30.0) sec Glucose 126 H (74-99) mg/dL Assessment and Plan Assessment: Right superficial femoral artery occlusion -Status post angiogram currently on TPA infusion that his catheter directed plans for return to OR in a.m. -Vascular surgery recommendations -Pain control Paroxysmal atrial fibrillation -Rate controlled, not on chronic anticoagulation but may consider on discharge -Continue metoprolol Hypertensive urgency -Start metoprolol -Follow blood pressures Cardiomyopathy -Beta twan, consider URIEL inhibitor if renal function remains stable after multiple exposures to IV dye -Ejection fraction 50% -Await cardiology recommendations Alcohol dependence -CIWA protocol, thiamine, folic acid Tobacco dependence -Cessation -Nicotine replacement DVT prophylaxis: Currently receiving TPA and heparin Discussed with: Patient, Dr. Nuno, Dr. Ibanez Anticipated discharge: 2-[address]: Home A total of 35 minutes was spent on the care of this complex patient more than 50% of the time was spent in counseling and care coordination.
[2018-10-03 20:56] LABS: Basophils % (A) 0 %; Eosinophils # (A) 0.2 k/uL (0-0.7); Eosinophils % (A) 3 %; HCT 46.7 % (39.0-53.0); HGB 15.3 gm/dL (13.0-17.5); Lymphocytes # (A) 1.1 k/uL (1.0-4.8); Lymphocytes % (A) 16 %; MCHC 32.8 g/dL (31.0-37.0); MCV 100.6 fL (80.0-100.0); Macrocytosis Slight; Mean Platelet Volume 8.1; Monocytes # (A) 0.4 k/uL (0-1.0); Monocytes % (A) 6 %; Neutrophils % (A) 73 %; Platelet Count 140 k/uL (150-450); RBC 4.64 m/uL (4.30-5.90); RDW 14.4 % (11.5-15.5); WBC 6.7 k/uL (3.8-10.6)
[2018-10-03] MEDS: MELATONIN 3 MG TABLET PO SCH (20:59)
[2018-10-03] MEDS: ATORVASTATIN 40 MG TAB PO SCH (20:59)
[2018-10-03 21:05] LABS: Partial Thromboplastin Time 29.2 sec (22.0-30.0)
[2018-10-04 00:51] LABS: Basophils % (A) 0 %; Eosinophils # (A) 0.2 k/uL (0-0.7); Eosinophils % (A) 3 %; HCT 47.5 % (39.0-53.0); HGB 15.4 gm/dL (13.0-17.5); Lymphocytes # (A) 1.2 k/uL (1.0-4.8); Lymphocytes % (A) 15 %; MCHC 32.4 g/dL (31.0-37.0); MCV 102.1 fL (80.0-100.0); Macrocytosis Slight; Mean Platelet Volume 8.3; Monocytes # (A) 0.5 k/uL (0-1.0); Monocytes % (A) 7 %; Neutrophils % (A) 74 %; Platelet Count 142 k/uL (150-450); RBC 4.66 m/uL (4.30-5.90); RDW 14.9 % (11.5-15.5)
[2018-10-04 01:19] LABS: Partial Thromboplastin Time 29.8 sec (22.0-30.0)
[2018-10-04] MEDS: ALTEPLASE 10 MG in SODIUM CHLORIDE 0.9% 50 ML IVPB SCH ×2 (04:00→07:30)
[2018-10-04 04:36] LABS: Basophils % (A) 1 %; Eosinophils # (A) 0.2 k/uL (0-0.7); Eosinophils % (A) 3 %; HCT 46.4 % (39.0-53.0); HGB 15.1 gm/dL (13.0-17.5); Lymphocytes # (A) 0.9 k/uL (1.0-4.8); Lymphocytes % (A) 12 %; MCH 33.3 pg (25.0-35.0); MCHC 32.7 g/dL (31.0-37.0); MCV 101.8 fL (80.0-100.0); Macrocytosis Slight; Mean Platelet Volume 7.8; Monocytes # (A) 0.4 k/uL (0-1.0); Monocytes % (A) 6 %; Neutrophils # (A) 5.8 k/uL (1.3-7.7); Neutrophils % (A) 78 %; Platelet Count 147 k/uL (150-450); RBC 4.56 m/uL (4.30-5.90); RDW 13.4 % (11.5-15.5); WBC 7.4 k/uL (3.8-10.6)
[2018-10-04 04:45] LABS: Partial Thromboplastin Time 30.1 sec (22.0-30.0)
[2018-10-04 04:48] LABS: African American GFR (CKD) >90 (>60 ml/min/1.73 sqM); Anion Gap 1 mmol/L; Blood Urea Nitrogen 13 mg/dL (9-20); Calcium 8.7 mg/dL (8.4-10.2); Carbon Dioxide 30 mmol/L (22-30); Chloride 104 mmol/L (98-107); Glucose 109 mg/dL (74-99); Potassium 4.8 mmol/L (3.5-5.1); Sodium 135 mmol/L (137-145)
--- NOTE | 2018-10-04 07:45 | P.CRDCN ---
History of Present Illness Consult date: 10/04/18 Chief complaint: Right lower extremitiy discomfort History of present illness: This is a 58-year-old gentleman with a past medical history significant for questionable history of paroxysmal atrial fibrillation, the patient does recall that he was told he has atrial fibrillation but there is no documentation indicate chronic medical records indicate that the patient has atrial fibrillation, significant history of smoking, and significant history of alcohol use, presented to the emergency room complaining of right lower extremity discomfort. For the last several months, he has been experiencing right lower extremity discomfort seems to be typical for intermittent claudication. Lately the pain has became quite resting. Beside that the patient noticed right lower extremity skin changes. He presented to the emergency room because the pain was getting worse. Subsequently on the computed tomography scan with contrast was performed and revealed occluded right superficial femoral artery with reconstitution at the popliteal level. The patient was seen by vascular surgeon and he was taken to the cardiac mobile lab technician where he underwent an infusion catheter placement and currently the patient is receiving TPA along with heparin. On exa mination, the right foot is definitely warm but there is no palpable pulse. The plan is to take the patient again for further and another woke. Clinically, the patient denies having any chest pain or chest discomfort, shortness of breath, dizziness, heart racing, or syncope. He stated that he was told that he has atrial fibrillation but he was not receiving any medication at home including oral anticoagulation. No history of diabetes, hypertension, or dyslipidemia. He underwent an echocardiogram during this hospital stay and that revealed mildly impaired LV function was EF around 40%. Past Medical History Past Medical History: No Reported History, Atrial Fibrillation Additional Past Medical History / Comment(s): alcoholism and smoker History of Any Multi-Drug Resistant Organisms: None Reported Past Surgical History: Tonsillectomy Past Anesthesia/Blood Transfusion Reactions: No Reported Reaction Past Psychological History: Anxiety Smoking Status: Current some day smoker Past Alcohol Use History: Abuse, Daily Additional Past Alcohol Use History / Comment(s): pt stated he drank a couple cases of beer a week, currently drinks 3-4 beers a day. Past Drug Use History: None Reported - Past Family History Mother Family Medical History: Diabetes Mellitus, Hypertension Additional Family Medical History / Comment(s): Family history of varicose veins. Father Family Medical History: CVA/TIA, Myocardial Infarction ([place]) Medications and Allergies Home Medications Medication Instructions Recorded Confirmed Type No Known Home Medications 10/01/18 10/01/18 History Allergies Allergy/AdvReac Type Severity Reaction Status Date / Time No Known Allergies Allergy Verified 10/01/18 18:07 Physical Exam Vitals: Vital Signs Temp Pulse Resp BP Pulse Ox 10/04/18 04:00 98.1 F 54 L 14 150/94 96 10/04/18 03:00 52 L 15 146/104 10/04/18 02:00 54 L 13 142/102 10/04/18 01:00 54 L 16 134/92 10/04/18 00:00 98.3 F 52 L 15 126/85 10/03/18 23:00 56 L 18 131/93 10/03/18 22:00 60 16 106/66 10/03/18 21:00 98.2 F 68 15 158/88 10/03/18 20:00 73 10 L 140/96 10/03/18 19:00 57 L 6 L 151/94 10/03/18 18:00 57 L 17 147/96 10/03/18 17:00 56 L 7 L 137/88 10/03/18 16:00 98.1 F 56 L 11 L 143/85 98 10/03/18 15:00 60 14 154/89 10/03/18 14:00 58 L 17 155/80 10/03/18 13:00 60 8 L 165/89 10/03/18 12:01 98.5 F 56 L 14 158/88 94 L 10/03/18 12:00 14 10/03/18 11:00 57 L 15 163/86 10/03/18 10:00 98.4 F 53 L 8 L 178/87 98 10/03/18 09:20 70 15 Intake and Output 10/03/18 10/04/18 10/04/18 22:59 06:59 14:59 Intake Total 1340 630 Output Total 1500 600 Balance -160 30 Intake: IV 315 630 Alteplase 10 mg In Sodium 15 30 Chloride 0.9% 50 ml @ 1 MG/HR 5 mls/hr IVPB Q10H [facility] Rx#:[id number] Sodium Chloride 0.9% 1, 300 600 000 ml @ 100 mls/hr IV . Q10H [facility] Rx#:[id number] Intake, IV Titration 525 Amount Alteplase 10 mg In Sodium 25 Chloride 0.9% 50 ml @ 1 MG/HR 5 mls/hr IVPB Q10H [facility] Rx#:[id number] Sodium Chloride 0.9% 500 500 ml 500 ml @ 0 mls/hr IV . [facility] Rx#: [id number] Oral 500 Output: Urine 1500 600 Other: Voiding Method Urinal Urinal # Voids 0 0 - Constitutional General appearance: no acute distress - Respiratory Respiratory: bilateral: CTA - Cardiovascular Rhythm: regular Heart sounds: normal: S1, S2 Results 10/04/18 04:23 10/04/18 04:23 Coagulation 10/03/18 10/03/18 10/03/18 Range/Units 09:50 16:40 20:37 PT 9.8 (9.0-12.0) sec APTT 53.9 H 31.7 H 29.2 (22.0-30.0) sec 10/04/18 10/04/18 Range/Units 00:30 04:23 PT (9.0-12.0) sec APTT 29.8 30.1 H (22.0-30.0) sec CBC 10/03/18 10/03/18 10/03/18 Range/Units 09:50 16:40 20:37 WBC 5.0 7.9 6.7 (3.8-10.6) k/uL RBC 4.73 4.65 4.64 (4.30-5.90) m/uL Hgb 15.7 15.5 15.3 (13.0-17.5) gm/dL Hct 48.3 47.2 46.7 (39.0-53.0) % Plt Count 145 L 157 140 L (150-450) k/uL 10/04/18 10/04/18 Range/Units 00:30 04:23 WBC 8.0 7.4 (3.8-10.6) k/uL RBC 4.66 4.56 (4.30-5.90) m/uL Hgb 15.4 15.1 (13.0-17.5) gm/dL Hct 47.5 46.4 (39.0-53.0) % Plt Count 142 L 147 L (150-450) k/uL Comprehensive Metabolic Panel 10/03/18 10/03/18 10/03/18 Range/Units 09:50 16:40 20:37 Sodium 138 (137-145) mmol/L Potassium 4.5 (3.5-5.1) mmol/L Chloride 105 (98-107) mmol/L Carbon Dioxide 29 (22-30) mmol/L BUN 10 12 13 (9-20) mg/dL Creatinine 0.71 (0.66-1.25) mg/dL Glucose 126 H (74-99) mg/dL Calcium 8.6 (8.4-10.2) mg/dL 10/04/18 10/04/18 Range/Units 00:30 04:23 Sodium 135 L (137-145) mmol/L Potassium 4.8 (3.5-5.1) mmol/L Chloride 104 (98-107) mmol/L Carbon Dioxide 30 (22-30) mmol/L BUN 15 13 (9-20) mg/dL Creatinine 0.83 (0.66-1.25) mg/dL Glucose 109 H (74-99) mg/dL Calcium 8.7 (8.4-10.2) mg/dL Current Medications Generic Name Dose Route Start Last Admin Trade Name Freq PRN Reason Stop Dose Admin Hydrocodone Bitart/Acetaminophen 1 each 10/01/18 17:01 10/03/18 11:33 Almyra 5-325 PO 1 each Q4HR PRN Administration Moderate Pain Aspirin 325 mg 10/01/18 20:45 10/03/18 11:29 Aspirin PO 325 mg DAILY [facility] Administration Atorvastatin Calcium 40 mg 10/01/18 21:00 10/03/18 20:59 Lipitor PO 40 mg HS [facility] Administration Heparin Sodium (Porcine) 0 unit 10/02/18 22:27 Heparin IV PER PROTOCOL PRN Low PTT Protocol Sodium Chloride 1,000 mls @ 100 mls/hr 10/01/18 17:00 10/03/18 20:57 Saline 0.9% IV 100 mls/hr .Q10H [facility] Administration Alteplase, Recombinant 10 mg/ 50 mls @ 5 mls/hr 10/03/18 10:38 10/03/18 14:17 Sodium Chloride IVPB 5 mls/hr Q10H [facility] Administration 1 MG/HR Heparin Sodium/Sodium Chloride 250 mls @ 5 mls/hr 10/03/18 11:00 10/03/18 11:34 25,000 unit/ Sodium Chloride IV 500 units/hr .Q24H [facility] 5 mls/hr Administration Protocol 500 UNITS/HR Lorazepam 1 mg 10/01/18 20:25 Ativan IV Q2HR PRN CIWA 8 or 9 Lorazepam 1 mg 10/01/18 20:25 Ativan IV Q1HR PRN CIWA 10 to 15 Melatonin 3 mg 10/01/18 21:00 10/03/18 20:59 Melatonin PO 3 mg HS [facility] Administration Metoprolol Tartrate 25 mg 10/03/18 10:30 10/03/18 20:59 Lopressor PO 25 mg BID [facility] Administration Morphine Sulfate 4 mg 10/01/18 17:01 10/03/18 20:58 Morphine Sulfate (Inj) IV 4 mg Q4HR PRN Administration Severe Pain Naloxone HCl 0.2 mg 10/01/18 17:01 Narcan IV Q2M PRN Opioid Reversal Nicotine 1 patch 10/01/18 20:45 10/03/18 11:29 Habitrol 21mg/24hr Patch TRANSDERM 1 patch DAILY [facility] Administration Ondansetron HCl 4 mg 10/01/18 17:01 Zofran IVP Q8HR PRN Nausea And Vomiting Thiamine HCl 100 mg 10/02/18 07:30 10/03/18 18:57 Vitamin B-1 PO Not Given BID-W/MEALS [facility] Intake and Output 10/03/18 10/04/18 10/04/18 22:59 06:59 14:59 Intake Total 1340 630 Output Total 1500 600 Balance -160 30 Intake: IV 315 630 Alteplase 10 mg In Sodium 15 30 Chloride 0.9% 50 ml @ 1 MG/HR 5 mls/hr IVPB Q10H [facility] Rx#:[id number] Sodium Chloride 0.9% 1, 300 600 000 ml @ 100 mls/hr IV . Q10H [facility] Rx#:[id number] Intake, IV Titration 525 Amount Alteplase 10 mg In Sodium 25 Chloride 0.9% 50 ml @ 1 MG/HR 5 mls/hr IVPB Q10H [facility] Rx#:[id number] Sodium Chloride 0.9% 500 500 ml 500 ml @ 0 mls/hr IV . [facility] Rx#: [id number] Oral 500 Output: Urine 1500 600 Other: Voiding Method Urinal Urinal # Voids 0 0 10/04/18 04:23 10/04/18 04:23 Assessment and Plan Assessment: Assessment #1 acute limb ischemia #2 probably severe occlusive peripheral arterial disease #3 significant history of smoking #4 possible paroxysmal atrial fibrillation Plan #1 currently the patient is on heparin as well as TPA #2 he is going to be taken back to the cardiac mobile lab technician for second look #3 I will suggest the patient to be started on at least aspirin down the line #4 he needs to be assessed for the possible diagnosis of paroxysmal atrial fibrillation by an event monitor or recorder as an outpatient Thank you for allowing us participate in his care
[2018-10-04 08:58] LABS: Basophils % (A) 0 %; Eosinophils # (A) 0.1 k/uL (0-0.7); Eosinophils % (A) 2 %; HCT 47.2 % (39.0-53.0); HGB 15.4 gm/dL (13.0-17.5); Lymphocytes # (A) 0.8 k/uL (1.0-4.8); Lymphocytes % (A) 12 %; MCH 33.2 pg (25.0-35.0); MCHC 32.7 g/dL (31.0-37.0); MCV 101.5 fL (80.0-100.0); Macrocytosis Slight; Mean Platelet Volume 7.3; Monocytes # (A) 0.5 k/uL (0-1.0); Monocytes % (A) 8 %; Neutrophils # (A) 5.3 k/uL (1.3-7.7); Neutrophils % (A) 78 %; Platelet Count 145 k/uL (150-450); RBC 4.65 m/uL (4.30-5.90); RDW 13.5 % (11.5-15.5); WBC 6.9 k/uL (3.8-10.6)
[2018-10-04] MEDS: THIAMINE 100 MG TAB PO SCH ×2 (09:06→18:19)
[2018-10-04] MEDS: METOPROLOL TARTRATE 25 MG TAB PO SCH ×2 (09:06→20:12)
[2018-10-04] MEDS: ASPIRIN 325 MG TAB PO SCH (09:06)
[2018-10-04] MEDS: NICOTINE 21MG/24HR PATCH TRANSDERM SCH ×2 (09:07→14:04)
[2018-10-04] MEDS: SODIUM CHLORIDE 0.9% 1,000 ML IV SCH ×2 (09:08→18:19)
[2018-10-04] MEDS ORDERED: IV FLUID CONTINUATION 1,000 ML IV ONE (10:45)
[2018-10-04] MEDS ORDERED: fentaNYL (PF) 50 MCG/ML 2 ML AMP IV ONE (10:47)
[2018-10-04] MEDS ORDERED: MIDAZOLAM (PF) 2 MG/2 ML VIAL IV ONE (10:47)
[2018-10-04] MEDS ORDERED: CLOPIDOGREL 75 MG TAB PO ONE (11:30)
[2018-10-04] MEDS ORDERED: PROTAMINE SULFATE 10 MG/ML 5 ML VIAL IV ONE (11:45)
[2018-10-04] MEDS ORDERED: IOPAMIDOL-250 100ML BTL INTRAARTER ONE (11:54)
--- NOTE | 2018-10-04 12:04 | P.OP ---
Date of Procedure: 10/04/18 Description of Procedure: Preoperative diagnosis: Acute on chronic right lower extremity ischemia, status post initiation of TPA Postoperative diagnosis: Same Procedure: Moderate conscious sedation with Versed and fentanyl, 58 minutes Right lower extremity angiogram via existing catheter Right lower extremity atherectomy with Hawk M device of the superficial femoral artery Right lower extremity percutaneous transluminal balloon angioplasty with 5 x 120 chocolate balloon Right lower extremity percutaneous stent placement, 5 x 100 E V3 Right lower extremity percutaneous transluminal balloon angioplasty of drug- coated balloon 5 x 80 impact balloon Surgeon: Karolina Nuno D.O. EBL: Less than 10 mL Fluoroscopy time: 8.9m Contrast: 60mL Complications: None Condition: Stable toICU Operative indication and findings: Patient is a 58-year-old male who previously had right lower extremity thrombolysis initiated for acute on chronic right lower extremity ischemia. He has been monitored in the ICU and presents back today for further imaging and evaluation. Upon final completion imaging after intervention the superficial femoral artery is patent without any areas of flow-limiting dissection or perforation. Flow was brisk and there is three-vessel runoff below the knee Procedure in detail: The patient was taken to the special suite and placed in supine position. The left groin was prepped and draped in usual sterile fashion and a preprocedure timeout was performed and all parties in agreement. A guidewire was placed in the existing TPA catheter was removed a right lower extremity angiogram was performed revealing significant improvement of the thrombus with areas of stenosis and calcification at the mid superficial femoral artery and the abductor canal. There was some haziness to the level of the popliteal artery above the knee where likely there was previous dissection. At that point a Sequoyah catheter was placed and a 5 spider was placed distally. A Hawk M was utilized to atherectomize the mid right thigh. Following this a chocolate 5 x 120 balloon was utilized throughout the entirety of the SFA at the area of the dissection and more proximally. These were held long inflations of 2-3 minutes. At that point a angiogram was performed revealing continued haziness of the distal superficial femoral artery therefore I decided to place a stent in this area. A 5 x 100 E V3 stent was deployed, a drug-coated balloon was used proximally to this area of the stent where we had atherectomized the artery. The angiogram was repeated revealing significant improvement with no areas of significant dissection or stenosis remaining. The spider was captured with a catheter and removed. A final angiogram of the entirety of the right lower extremity was performed with the findings as above. The sheath was pulled back across the bifurcation over a wire, ACT is were checked, the wire was removed and once adequate, the sheath was removed and pressure were held until hemostasis.
--- NOTE | 2018-10-04 16:30 | P.PN ---
Subjective Progress Note Date: 10/04/18 Principal diagnosis: Right lower extremity pain secondary to occlusion. This is a very pleasant 58-year-old gentleman with no current primary care physician, a history of paroxysmal atrial fibrillation, daily alcohol dependence. He does have a 26 year smoking history at 1-1-1/2 packs per day. He does take Claritin for occasional sinus issues. 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 He does have multiple varicosities of the lower extremities. He has been having ongoing issues with lower right extremity discomfort. Mostly that and pain tingling and numbness. Dramatic claudication. He's noted some discoloration as well. He presented to the emergency room on 10/01/[address] angiogram revealed occluded right superficial femoral artery with reconstitution his right popliteal artery with a 3 vessel runoff. Echocardiogram revealed mildly impaired left ventricular systolic function with ejection fraction 45-50%. Early this morning he was seen by vascular surgery and had undergone an ultrasound-guided left common femoral artery access, aortoiliac angiogram and initiation of thrombolytic lysis with 30 cm in diffuse catheter placement. He was returned here to the intensive care unit while the alteplase is infusing. He is seen this morning in consultation in the ICU. He is awake and alert in no acute distress. No shortness of breath, cough or congestion. Maintaining good O2 saturations in the 90s on room air. 0.9 normal saline at 100. Alteplase infusing at 1 mg per hour. Catheter placed to the left femoral artery and the tip in the right lower extremity towards the popliteal artery. Doppler pedal pulses are present. White count 5.0. Hemoglobin 15.7. NicoDerm patch in place. He's been placed in the CIWA protocol. The patient is seen today 10/04/2017 in follow-up in the intensive care unit. He is awake and alert in no acute distress. Maintaining good O2 saturations in the 90s on room air. He's been afebrile. Hemodynamically stable. Somewhat hypertensive. White count 6.9. Hemoglobin 15.4. MCV 101.5. Fibrinogen 319. Sodium 135. Potassium 4.8. Creatinine 0.83. He was taken back to the CVL and had undergone right lower extremity angiogram via existing catheter with atherectomy and percutaneous transluminal angioplasty and stent placement. He tolerated the procedure well. Objective - Vital Signs Vital signs: Vital Signs Temp 97.1 F L 10/04/18 12:00 Pulse 51 L 10/04/18 14:00 Resp 17 10/04/18 14:00 BP 135/96 10/04/18 14:00 Pulse Ox 97 10/04/18 09:00 Intake & Output 10/03/18 10/04/18 10/04/18 18:59 06:59 18:59 Intake Total 2610 1155 830 Output Total 1725 1475 1400 Balance 885 320 -570 Weight 80.6 kg Intake: IV 200 1155 830 Alteplase 10 mg In Sodium 55 30 Chloride 0.9% 50 ml @ 1 MG/HR 5 mls/hr IVPB Q10H [facility] Rx#:[id number] Sodium Chloride 0.9% 1, 1100 600 000 ml @ 100 mls/hr IV . Q10H [facility] Rx#:[id number] Intake, IV Titration 1050 Amount Alteplase 10 mg In Sodium 50 Chloride 0.9% 50 ml @ 1 MG/HR 5 mls/hr IVPB Q10H [facility] Rx#:[id number] Sodium Chloride 0.9% 500 1000 ml 500 ml @ 0 mls/hr IV . [facility] Rx#: [id number] Oral 1360 Output: Urine 1725 1475 1400 Other: Voiding Method Urinal Urinal Urinal # Voids 0 - Exam GENERAL EXAM: A pleasant 58 year old gentleman. Alert, comfortable in no distress. On room air. HEAD: Normocephalic. EYES: Normal reaction of pupils, equal size. NOSE: Clear with pink turbinates. THROAT: No erythema or exudates. NECK: No masses, no JVD. CHEST: No chest wall deformity. LUNGS: Equal air entry with no crackles, wheeze, rhonchi or dullness. CVS: S1 and S2 normal with no audible murmur, regular rhythm. ABDOMEN: No hepatosplenomegaly, normal bowel sounds, no guarding or rigidity. SPINE: No scoliosis or deformity SKIN: No rashes CENTRAL NERVOUS SYSTEM: No focal deficits, tone is normal in all 4 extremities. EXTREMITIES: Lower extremity peripheral pulses are present. - Labs CBC & Chem 7: 10/04/18 08:14 10/04/18 08:14 Labs: Abnormal Lab Results - Last 24 Hours (Table) 10/03/18 10/03/18 10/03/18 Range/Units 16:40 16:40 20:37 MCV 101.3 H 100.6 H (80.0-100.0) fL Plt Count 140 L (150-450) k/uL Lymphocytes # (1.0-4.8) k/uL APTT 31.7 H (22.0-30.0) sec Sodium (137-145) mmol/L Glucose (74-99) mg/dL 10/04/18 10/04/18 10/04/18 Range/Units 00:30 04:23 04:23 MCV 102.1 H 101.8 H (80.0-100.0) fL Plt Count 142 L 147 L (150-450) k/uL Lymphocytes # 0.9 L (1.0-4.8) k/uL APTT (22.0-30.0) sec Sodium 135 L (137-145) mmol/L Glucose 109 H (74-99) mg/dL 10/04/18 10/04/18 10/04/18 Range/Units 04:23 08:14 08:14 MCV 101.5 H (80.0-100.0) fL Plt Count 145 L (150-450) k/uL Lymphocytes # 0.8 L (1.0-4.8) k/uL APTT 30.1 H 31.0 H (22.0-30.0) sec Sodium (137-145) mmol/L Glucose (74-99) mg/dL Assessment and Plan Assessment: Impression: #1 Right lower extremity pain, tingling, numbness with discoloration found to have occlusion. Status post left femoral catheter placement with the tip to the right popliteal area. TPA infused. Doppler pulses present. Returned to the CVL today and received a stent placement. Continue aspirin and Plavix. #2 History of varicose veins. #3 Chronic and ongoing tobacco dependence of greater than 20 years at 1-1-1/2 packs per day. #4 History of paroxysmal atrial fibrillation. #5 History of daily alcohol use. Plan: The patient was seen and evaluated by Dr. Ibanez. He is stable from the pulmonary and critical care standpoint. Probable discharge in the a.m. He is educated regarding the importance of complete smoking cessation. NicoDerm patch is in place. We'll continue to follow and make further recommendations based on his clinical status. I, the cosigning physician, performed a history & physical examination of the patient. Lungs sounds are clear. Maintaining good O2 saturations in the 90s on room air. I discussed the assessment and plan of care with my nurse practitioner, Chen Bender. I attest to the above note as dictated by her.
--- NOTE | 2018-10-04 18:43 | P.PN ---
Subjective Progress Note Date: 10/04/18 (delayed charting seen at 2:30pm) Principal diagnosis: Right leg pain Patient is a 58-year-old male with a medical history of paroxysmal atrial fibrillation, alcohol dependence, and smoking addiction who presented to the emergency department with complaints of worsening pain in his right lower extremity. On arrival his vital signs showed a slightly elevated blood pressure 167/84. Initial laboratory analysis is unremarkable. He underwent a CT angiogram of the leg. It being cold with faint pulses. This shows an occluded right superficial femoral artery with reconstruction at the right popliteal artery with 3 vessel runoff. Vascular surgeon was consulted and he was placed in observation. Patient was started on a heparin drip. On the morning of 10/03 he underwent an angiogram which showed thrombus as well as possible stenosis in the right superficial femoral artery. He had a catheter placed for catheter directed TPA and was subsequently admitted to the ICU. He was noted to have persistently elevated blood pressures and was subsequently started on me toprolol. Echocardiogram was obtained which showed an ejection fraction of 45- 50% with a severely dilated left atrium, moderate to mild mitral regurgitation and mild pulmonary hypertension. On 10/04 patient underwent arthrectomy with balloon angioplasty and stent placement to the right lower extremity. He returned to the ICU in stable condition. Patient seen and examined at bedside. Pain in his leg is much improved. He denies any chest pain, shortness breath, nausea, vomiting, or diarrhea. We discussed at length the importance of following up at the [facility]. for insurance. He understands. We have also talked about getting his Plavix covered for at least the first month. Objective - Vital Signs Vital signs: Vital Signs Temp 97.9 F 10/04/18 16:00 Pulse 79 10/04/18 18:00 Resp 23 10/04/18 18:00 BP 144/69 10/04/18 18:00 Pulse Ox 98 10/04/18 16:00 Intake & Output 10/03/18 10/04/18 10/04/18 18:59 06:59 18:59 Intake Total 2610 1155 1250 Output Total 1725 5535 2400 Balance 885 -320 -1150 Weight 80.6 kg Intake: IV 200 1155 1250 Alteplase 10 mg In Sodium 55 50 Chloride 0.9% 50 ml @ 1 MG/HR 5 mls/hr IVPB Q10H [facility] Rx#:[id number] Sodium Chloride 0.9% 1, 1100 1000 000 ml @ 100 mls/hr IV . Q10H [facility] Rx#:[id number] Intake, IV Titration 1050 Amount Alteplase 10 mg In Sodium 50 Chloride 0.9% 50 ml @ 1 MG/HR 5 mls/hr IVPB Q10H [facility] Rx#:[id number] Sodium Chloride 0.9% 500 1000 ml 500 ml @ 0 mls/hr IV . [facility] Rx#: [id number] Oral 1360 Output: Urine 1725 1475 2400 Other: Voiding Method Urinal Urinal Urinal # Voids 0 # Bowel Movements 1 - Exam General: non toxic, no distress, appears older than stated age Derm: bilateral lower extremities with ulcerations that are red without any purulence or significant drainage, warm, dry Head: atraumatic, normocephalic, symmetric Eyes: EOMI, no lid lag, anicteric sclera Mouth: no lip lesion, mucus membranes moist Cardiovascular: S1S2 irreg, no murmur, Lungs: Decreased Sounds bilateral, no rhonchi, no rales , no accessory muscle use Abdominal: soft, nontender to palpation, no guarding, no appreciable organomegaly Ext: no gross muscle atrophy, trace edema, no contractures Neuro: CN II-XI grossly intact, no focal neuro deficits Psych: Alert, oriented, appropriate affect - Labs CBC & Chem 7: 10/04/18 08:14 10/04/18 08:14 Labs: Abnormal Lab Results - Last 24 Hours (Table) 10/03/18 10/04/18 10/04/18 Range/Units 20:37 00:30 04:23 MCV 100.6 H 102.1 H (80.0-100.0) fL Plt Count 140 L 142 L (150-450) k/uL Lymphocytes # (1.0-4.8) k/uL APTT (22.0-30.0) sec Sodium 135 L (137-145) mmol/L Glucose 109 H (74-99) mg/dL 10/04/18 10/04/18 10/04/18 Range/Units 04:23 04:23 08:14 MCV 101.8 H 101.5 H (80.0-100.0) fL Plt Count 147 L 145 L (150-450) k/uL Lymphocytes # 0.9 L 0.8 L (1.0-4.8) k/uL APTT 30.1 H (22.0-30.0) sec Sodium (137-145) mmol/L Glucose (74-99) mg/dL 10/04/18 Range/Units 08:14 MCV (80.0-100.0) fL Plt Count (150-450) k/uL Lymphocytes # (1.0-4.8) k/uL APTT 31.0 H (22.0-30.0) sec Sodium (137-145) mmol/L Glucose (74-99) mg/dL Assessment and Plan Assessment: Right superficial femoral artery occlusion -Status post ballon angioplasty and stent placement -ASA, plavix, lipitor -Vascular surgery recommendations -Pain control Paroxysmal atrial fibrillation -Rate controlled, not on chronic anticoagulation has been in sinus rhythm, ASA and plavix on discharge -Continue metoprolol Hypertensive urgency, improved - continue metoprolol -Follow blood pressures Cardiomyopathy -Beta twan, consider URIEL inhibitor if renal function remains stable after multiple exposures to IV dye -Ejection fraction 50% -Cardiology recommendations appreciated Alcohol dependence -CIWA protocol, thiamine, folic acid Tobacco dependence -Cessation -Nicotine replacement Social stressor Patient without insurance. Will provide 30 day Rx for plavix through indigent funds. Will need to follow-up at the [facility]. Will attempt to maxamize the $4 list medications. Patient aware of need to follow-up kahlil busch as might qualify for medicaid DVT prophylaxis: Heparin Discussed with: Patient, nursing Anticipated discharge: in AM Anticipated discharge place: Home A total of 35 minutes was spent on the care of this complex patient more than 50% of the time was spent in counseling and care coordination.
[2018-10-04] MEDS: MELATONIN 3 MG TABLET PO SCH (20:12)
[2018-10-04] MEDS: ATORVASTATIN 40 MG TAB PO SCH (20:12)
[2018-10-04] MEDS: HYDROcodone/APAP 5-325MG 1 EACH TAB PO PRN (20:12)
[2018-10-05] MEDS: HYDROcodone/APAP 5-325MG 1 EACH TAB PO PRN ×2 (01:15→06:59)
[2018-10-05] MEDS: SODIUM CHLORIDE 0.9% 1,000 ML IV SCH ×2 (05:42→09:36)
[2018-10-05 05:50] LABS: HCT 46.5 % (39.0-53.0); MCH 32.5 pg (25.0-35.0); MCHC 32.2 g/dL (31.0-37.0); Macrocytosis Slight; Mean Platelet Volume 7.5; Platelet Count 132 k/uL (150-450); RDW 13.6 % (11.5-15.5); WBC 7.5 k/uL (3.8-10.6)
[2018-10-05 06:00] LABS: African American GFR (CKD) >90 (>60 ml/min/1.73 sqM); Anion Gap 6 mmol/L; Blood Urea Nitrogen 7 mg/dL (9-20); Calcium 8.3 mg/dL (8.4-10.2); Carbon Dioxide 26 mmol/L (22-30); Chloride 104 mmol/L (98-107); Glucose 102 mg/dL (74-99); Potassium 4.3 mmol/L (3.5-5.1); Sodium 136 mmol/L (137-145)
[2018-10-05] MEDS: THIAMINE 100 MG TAB PO SCH (06:59)
[2018-10-05] MEDS: NICOTINE 21MG/24HR PATCH TRANSDERM SCH (08:42)
[2018-10-05] MEDS: METOPROLOL TARTRATE 25 MG TAB PO SCH (08:42)
[2018-10-05 08:50] VITALS: TEMP 97.9
[2018-10-05] MEDS ORDERED: ASPIRIN 81 MG PO SCH (09:00)
[2018-10-05] MEDS ORDERED: LISINOPRIL 20 MG TAB PO SCH (09:00)
[2018-10-05] MEDS ORDERED: CLOPIDOGREL 75 MG TAB PO SCH (09:00)
[2018-10-05 10:12] VITALS: BP 156/92; PULSE 49; RESP 10
--- NOTE | 2018-10-05 10:17 | P.DS ---
Providers Date of admission: 10/02/18 14:54 Expected date of discharge: 10/05/18 Attending physician: Dora Sheehan DO Consults: 10/01/18 17:01 Consult Physician Urgent Consulting Provider: Chris Lemus Consult Reason/Comments: Arterial insufficiency Do you want consulting provider notified?: Yes 10/02/18 13:00 Consult Physician Urgent Consulting Provider: Juan Julio Consult Reason/Comments: Surgical clearance Do you want consulting provider notified?: Yes 10/03/18 09:44 Consult Physician Routine Consulting Provider: Peace Ibanez Consult Reason/Comments: ICU Management Do you want consulting provider notified?: Yes Primary care physician: Stated None Hospital Course: Discharge Diagnosis: Right superficial femoral artery occlusion Paroxysmal atrial fibrillation Hypertensive urgency Cardiomyopathy Alcohol dependency Tobacco abuse Social stressors-no insurance Hospital Course: Patient is a 58-year-old male with a medical history of paroxysmal atrial fibrillation, alcohol dependence, and smoking addiction who presented to the emergency department with complaints of worsening pain in his right lower extremity. On arrival his vital signs showed a slightly elevated blood pressure 167/84. Initial laboratory analysis is unremarkable. He underwent a CT angiogram of the leg due to it being cold with faint pulses. This shows an occluded right superficial femoral artery with reconstruction at the right popliteal artery with 3 vessel runoff. Vascular surgeon was consulted and he was placed in observation. Patient was started on a heparin drip. On the morning of 10/03 he underwent an angiogram which showed thrombus as well as possible stenosis in the right superficial femoral artery. He had a catheter placed for catheter directed TPA and was subsequently admitted to the ICU. He was noted to have persistently elevated blood pressures and was subsequently started on metoprolol. Echocardiogram was obtained which showed an ejection fraction of 45-50% with a severely dilated left atrium, moderate to mild mitral regurgitation and mild pulmonary hypertension. On 10/04 patient underwent arthrectomy with balloon angioplasty and stent placement to the right lower extremity. He returned to the ICU in stable condition. He continue to improve and eas determined stable for discharge. Patient has no insurance and therefore medications were optimized. He was given a free supply of Plavix for 30 days. He was seen by [facility] to apply for Medicaid and will receive a follow-up call in 2 weeks. Have also provided him with an additional month supply of metoprolol, Lopressor, and Plavix along with information on good Rx the prices of at [facility]. I have stressed with him the importance of taking his Plavix as he did have in-stent thrombosis. He will also follow-up with Dr. Nuno in 2 weeks. Have also given him information on [facility] underinsured program and he will follow up with their for a PCP. Initially I had wanted to start him on lisinopril in addition to metoprolol, however he is reluctant to start medications. I would rather have him adequately take his metoprolol, Plavix, and Lipitor than an additional lisinopril at this point in time. Patient seen and examined at bedside. Pain controlled with norco, up and ambulating, no nuasea, no vomiting, no diarrhea. Vital signs reviewed and stable. General: non toxic, no distress, appears at stated age Derm: lower extemity still with 2 areas of excoriation and varicose veins with purple splotched, warm, dry Head: atraumatic, normocephalic, symmetric Eyes: EOMI, no lid lag, anicteric sclera Mouth: no lip lesion, mucus membranes moist Cardiovascular: S1S2 reg, no murmur, positive posterior tibial pulse bilateral, Lungs: CTA bilateral, no rhonchi, no rales , no accessory muscle use Abdominal: soft, nontender to palpation, no guarding, no appreciable organomegaly Ext: no gross muscle atrophy, no edema, no contractures Right groin: puncture melva, no bleeding, no palpable masses Neuro: CN II-XI grossly intact, no focal neuro deficits Psych: Alert, oriented, appropriate affect A total of 35 minutes of time were spent preparing this complex discharge summary . Pertinent Studies: CTA right leg- occluded right superficial femoral artery with reconstruction at the right popliteal artery with 3 vessel runoff. Echocardiogram-ejection fraction 45-50%, mild pulmonary hypertension, [id number] MR, mild tricuspid regurgitation Patient Condition at Discharge: Stable Plan - Discharge Summary Discharge Rx Participant: No New Discharge Prescriptions: New Clopidogrel [Plavix] 75 mg PO DAILY #30 tab Aspirin 81 mg PO DAILY #30 chew Atorvastatin [Lipitor] 40 mg PO HS #30 tab Metoprolol Tartrate [Lopressor] 25 mg PO BID #60 tab HYDROcodone/APAP 5-325MG [[place] 5-325] 1 each PO Q4HR PRN #30 tab PRN Reason: Moderate Pain Atorvastatin [Lipitor] 40 mg PO HS #30 tablet Metoprolol Tartrate [Lopressor] 25 mg PO BID #60 tablet Clopidogrel [Plavix] 75 mg PO DAILY #30 tablet Discharge Medication List Clopidogrel [Plavix] 75 mg PO DAILY #30 tab 10/04/18 [Rx] Aspirin 81 mg PO DAILY #30 chew 10/05/18 [Rx] Atorvastatin [Lipitor] 40 mg PO HS #30 tab 10/05/18 [Rx] Atorvastatin [Lipitor] 40 mg PO HS #30 tablet 10/05/18 [Rx] Clopidogrel [Plavix] 75 mg PO DAILY #30 tablet 10/05/18 [Rx] HYDROcodone/APAP 5-325MG [[place] 5-325] 1 each PO Q4HR PRN #30 tab 10/05/18 [Rx] Metoprolol Tartrate [Lopressor] 25 mg PO BID #60 tab 10/05/18 [Rx] Metoprolol Tartrate [Lopressor] 25 mg PO BID #60 tablet 10/05/18 [Rx] Follow up Appointment(s)/Referral(s): Karolina Nuno DO [STAFF PHYSICIAN] - 2 Weeks None,Stated [Primary Care Provider] - 1-2 days [facility] [NON-STAFF] - 1 Week Activity/Diet/Wound Care/Special Instructions: heart healthy diet activity as tolerated Stop Smoking Discharge Disposition: HOME SELF-CARE
--- NOTE | 2018-10-05 11:24 | P.PN ---
Subjective Progress Note Date: 10/05/18 This is a very pleasant 58-year-old gentleman with no current primary care physician, a history of paroxysmal atrial fibrillation, daily alcohol dependence. He does have a 26 year smoking history at 1-1-1/2 packs per day. He does take Claritin for occasional sinus issues. 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 He does have multiple varicosities of the lower extremities. He has been having ongoing issues with lower right extremity discomfort. Mostly that and pain tingling and numbness. Dramatic claudication. He's noted some discoloration as well. He presented to the emergency room on 10/01/[address] angiogram revealed occluded right superficial femoral artery with reconstitution his right popliteal artery with a 3 vessel runoff. Echocardiogram revealed mildly impaired left ventricular systolic function with ejection fraction 45-50%. Early this morning he was seen by vascular surgery and had undergone an ultrasound-guided left common femoral artery access, aortoiliac angiogram and initiation of thrombolytic lysis with 30 cm in diffuse catheter placement. He was returned here to the intensive care unit while the alteplase is infusing. He is seen this morning in consultation in the ICU. He is awake and alert in no acute distress. No shortness of breath, cough or congestion. Maintaining good O2 saturations in the 90s on room air. 0.9 normal saline at 100. Alteplase infusing at 1 mg per hour. Catheter placed to the left femoral artery and the tip in the right lower extremity towards the popliteal artery. Doppler pedal pulses are present. White count 5.0. Hemoglobin 15.7. NicoDerm patch in place. He's been placed in the CIWA protocol. The patient is seen today 10/04/2017 in follow-up in the intensive care unit. He is awake and alert in no acute distress. Maintaining good O2 saturations in the 90s on room air. He's been afebrile. Hemodynamically stable. Somewhat hypertensive. White count 6.9. Hemoglobin 15.4. MCV 101.5. Fibrinogen 319. Sodium 135. Potassium 4.8. Creatinine 0.83. He was taken back to the CVL and had undergone right lower extremity angiogram via existing catheter with athere ctomy and percutaneous transluminal angioplasty and stent placement. He tolerated the procedure well. On 10/05/2018, patient is being seen for a follow-up. Doing extremely well. The right lower extremities warm and there is adequate palpable pulses. The patient remains on Plavix. The patient is wearing a nicotine patch. Smoking cessation counseling was done. He is hemodynamically stable. Metoprolol and lisinopril was added for blood pressure control. No significant hyperlipidemia and LDL level is in the low 60 range. The patient has no chest pain. No cough or sputum production. No pain lower extremities. Echocardiogram showed ejection fraction 45-50% Objective - Vital Signs Vital signs: Vital Signs Temp 97.9 F 10/05/18 08:00 Pulse 49 L 10/05/18 10:00 Resp 10 L 10/05/18 10:00 BP 156/92 10/05/18 10:00 Pulse Ox 97 10/05/18 08:00 Intake & Output 10/04/18 10/05/18 10/05/18 18:59 06:59 18:59 Intake Total 2320 1100 600 Output Total 2400 1175 1700 Balance -80 -75 -1100 Weight 80.6 kg 75.1 kg Intake: IV 1320 1100 100 Alteplase 10 mg In Sodium 20 Chloride 0.9% 50 ml @ 1 MG/HR 5 mls/hr IVPB Q10H IVETTE Rx#:[id number] Sodium Chloride 0.9% 1, 1100 1100 100 000 ml @ 100 mls/hr IV . Q10H IVETTE Rx#:[id number] Oral 1000 500 Output: Urine 2400 1175 1700 Other: Voiding Method Urinal Urinal # Bowel Movements 1 - Exam GENERAL EXAM: A pleasant 58 year old gentleman. Alert, comfortable in no distress. On room air. HEAD: Normocephalic. EYES: Normal reaction of pupils, equal size. NOSE: Clear with pink turbinates. THROAT: No erythema or exudates. NECK: No masses, no JVD. CHEST: No chest wall deformity. LUNGS: Equal air entry with no crackles, wheeze, rhonchi or dullness. CVS: S1 and S2 normal with no audible murmur, regular rhythm. ABDOMEN: No hepatosplenomegaly, normal bowel sounds, no guarding or rigidity. SPINE: No scoliosis or deformity SKIN: No rashes CENTRAL NERVOUS SYSTEM: No focal deficits, tone is normal in all 4 extremities. EXTREMITIES: Lower extremity peripheral pulses are present. - Labs CBC & Chem 7: 10/05/18 05:16 10/05/18 05:16 Labs: Abnormal Lab Results - Last 24 Hours (Table) 10/05/18 10/05/18 Range/Units 05:16 05:16 MCV 101.0 H (80.0-100.0) fL Plt Count 132 L (150-450) k/uL Sodium 136 L (137-145) mmol/L BUN 7 L (9-20) mg/dL Creatinine 0.58 L (0.66-1.25) mg/dL Glucose 102 H (74-99) mg/dL Calcium 8.3 L (8.4-10.2) mg/dL Assessment and Plan Plan: #1 Right lower extremity pain, tingling, numbness with discoloration found to have occlusion. Status post left femoral catheter placement with the tip to the right popliteal area. TPA infused. Doppler pulses present. Returned to the CVL today and received a stent placement. Continue aspirin and Plavix. The patient has adequate circulation adequate pulses in the right lower extremity. No evidence of any ischemic changes. He continues to have some chronic varicosities in the lower extremities bilaterally. He is hemodynamically stable at this point in time. #2 History of varicose veins. #3 Chronic and ongoing tobacco dependence of greater than 20 years at 1-1-1/2 packs per day. #4 History of paroxysmal atrial fibrillation. #5 History of daily alcohol use. #6 CHF with ejection fraction of 45% #7 history of alcohol dependency #9 smoker Plan Patient can be discharged home today. Continue Plavix. Continue metoprolol and lisinopril. Smoking cessation counseling was done. LDL levels are low. Daily walking activity. Follow-up with vascular surgery regarding the chronic venous varicosities and the peripheral vascular disease. Discharge home today if it's okay with the surgeon and this is a medical team. Continue aspirin. Continue Plavix. Continue Lipitor.
--- NOTE | 2018-10-08 07:28 | IR ---
EXAMINATION TYPE: IR stent intravas non coronary DATE OF EXAM: 10/04/2018 CLINICAL HISTORY: Peripheral vascular disease. Right SFA occlusion. TECHNIQUE: Fluoroscopy. COMPARISON: None. FINDINGS: Fluoroscopic guidance was provided during lower extremity angiogram with stent placement p rocedure performed by Dr. Nuno. A total of 8.9 minutes of fluoroscopic time was utilized during the procedure and several cine runs are acquired. Images acquired show access of the right lower extremi ty. Please refer to procedure note for further details as I was not present nor performed procedure. IMPRESSION: As Above.
== END 2018-10-05 11:00 | disposition home or self-care (01) | DRG 253 ==
LOC: EC 15:19 → 1SOBS 18:39 → OBSVTOIN 10-02 14:54 → 2SICU 10-03 09:08
PROVIDERS: ADMIT Internal Medicine; ATTEND Internal Medicine
PROC: 3E05317 Introduction of Other Thrombolytic into Peripheral Artery, Percutaneous Approach (ICD-10-PCS; 2018-10-03 07:33)
PROC: B4101ZZ Fluoroscopy of Abdominal Aorta using Low Osmolar Contrast (ICD-10-PCS; 2018-10-03 07:33)
PROC: B41F1ZZ Fluoroscopy of Right Lower Extremity Arteries using Low Osmolar Contrast (ICD-10-PCS; 2018-10-03 07:33)
PROC: 047K3D1 Dilation of Right Femoral Artery with Intraluminal Device, using Drug-Coated Balloon, Percutaneous Approach (ICD-10-PCS; principal; 2018-10-04 10:30)
DX: I70.211 Atherosclerosis of native arteries of extremities with intermittent claudication, right leg (principal); I42.9 Cardiomyopathy, unspecified; I50.22 Chronic systolic (congestive) heart failure; I48.0 Paroxysmal atrial fibrillation; F10.20 Alcohol dependence, uncomplicated; F17.210 Nicotine dependence, cigarettes, uncomplicated; I16.0 Hypertensive urgency; F41.9 Anxiety disorder, unspecified; I11.0 Hypertensive heart disease with heart failure; I87.2 Venous insufficiency (chronic) (peripheral); I83.93 Asymptomatic varicose veins of bilateral lower extremities; I08.1 Rheumatic disorders of both mitral and tricuspid valves; I27.21 Secondary pulmonary arterial hypertension; Z59.7 Insufficient social insurance and welfare support; Z71.6 Tobacco abuse counseling; Z79.82 Long term (current) use of aspirin; Z82.49 Family history of ischemic heart disease and other diseases of the circulatory system; Z83.3 Family history of diabetes mellitus
CPT/HCPCS: 36415; 37211; 37214; 37227; 75625; 75635; 75710; 76937; 80048; 80053; 80061; 84520; 85025; 85027; 85347; 85384; 85610; 85730; 86850; 86900; 86901; 93005; 93306; 96365; 96376; 99285

== ENCOUNTER 2018-10-27 19:47 | Emergency (ER) | payer OTHER ==
[2018-10-27 19:59] VITALS: RESP 18
--- NOTE | 2018-10-27 20:28 | ED ---
Extremity Problem HPI - General Chief complaint: Extremity Problem,Nontraumatic Stated complaint: Leg pain Time Seen by Provider: 10/27/18 20:15 Source: patient, RN notes reviewed Mode of arrival: ambulatory Limitations: no limitations - History of Present Illness Initial comments: This a 58-year-old male with a history of peripheral vascular disease and a stent placed in his right lower extremity 2 weeks ago and then return to work 2 days later states since that time he's had intermittent episodes of anterior right thigh pain also right foot pain and right great toe pain and some swelling to his right medial ankle. He denies any fevers chills sweats trauma he is a smoker. States the pain is sharp and fleeting he usually comes to 3 hours after he starts working. He works 60 hours shifts he states. At this time no other modifying factors MD Complaint: extremity pain - Related Data Previous Rx's Medication Instructions Recorded Aspirin 81 mg PO DAILY #30 chew 10/05/18 Atorvastatin [Lipitor] 40 mg PO HS #30 tab 10/05/18 Clopidogrel [Plavix] 75 mg PO DAILY #30 tablet 10/05/18 Metoprolol Tartrate [Lopressor] 25 mg PO BID #60 tab 10/05/18 Ibuprofen 800 mg PO Q6HR PRN #20 tablet 10/27/18 Allergies Allergy/AdvReac Type Severity Reaction Status Date / Time No Known Allergies Allergy Verified 10/27/18 21:01 Review of Systems ROS Statement: Those systems with pertinent positive or pertinent negative responses have been documented in the HPI. ROS Other: All systems not noted in ROS Statement are negative. Past Medical History Past Medical History: No Reported History, Atrial Fibrillation Additional Past Medical History / Comment(s): alcoholism and smoker History of Any Multi-Drug Resistant Organisms: None Reported Past Surgical History: Tonsillectomy Additional Past Surgical History / Comment(s): stent to rt leg Past Anesthesia/Blood Transfusion Reactions: No Reported Reaction Past Psychological History: Anxiety Smoking Status: Current some day smoker Past Alcohol Use History: Abuse, Daily Past Drug Use History: None Reported - Past Family History Mother Family Medical History: Diabetes Mellitus, Hypertension Additional Family Medical History / Comment(s): Family history of varicose veins. Father Family Medical History: CVA/TIA, Myocardial Infarction ([place]) General Exam - General Exam Comments Initial Comments: This is a well-developed 74 male was awake alert oriented 3 Limitations: no limitations General appearance: alert, in no apparent distress Head exam: Present: atraumatic, normocephalic, normal inspection Eye exam: Present: normal appearance, PERRL, EOMI. Absent: scleral icterus, conjunctival injection, periorbital swelling ENT exam: Present: normal exam, mucous membranes moist Neck exam: Present: normal inspection. Absent: tenderness, meningismus, lymphadenopathy Respiratory exam: Present: normal lung sounds bilaterally. Absent: respiratory distress, wheezes, rales, rhonchi, stridor Cardiovascular Exam: Present: normal rhythm, bradycardia, normal heart sounds. Absent: systolic murmur, diastolic murmur, rubs, gallop, clicks GI/Abdominal exam: Present: soft, normal bowel sounds. Absent: distended, tenderness, guarding, rebound, rigid Extremities exam: Present: full ROM, normal capillary refill, other (Examination of the right lower extremity demonstrates varicosities to the upper and lower extremities no definite calf tenderness or swelling at this time is some mild swelling to the medial aspect of the right ankle evidence of some venous stasis changes. His right great toe demonstrates minimal localized numbness to palpation and light touch. Dorsalis pedis pulses strong +2 are +2.). Absent: tenderness, pedal edema, joint swelling, calf tenderness Back exam: Present: normal inspection Neurological exam: Present: alert, oriented X3, CN II-XII intact Psychiatric exam: Present: normal affect, normal mood Skin exam: Present: warm, dry, intact, normal color. Absent: rash Course Vital Signs 10/27/18 19:55 Temperature 97.5 F L Pulse Rate 45 L Respiratory 18 Rate Blood Pressure 160/75 O2 Sat by Pulse 100 Oximetry Procedures - Smoking Cessation Time Spent Discussing Smoking Cessation w/Patient (Minutes): 3 Patient Acknowledges Need for Cessation: Yes Medical Decision Making - Medical Decision Making I did discuss the findings with the patient will be discharged to follow-up with his doctor. I did recommend ibuprofen 800 mg in addition to his home medications also discussed with him the need for increase hydration. He is to continue with try to quit smoking cigarettes he is follow-up with his doctor return when necessary - Lab Data Result diagrams: 10/27/18 21:31 10/27/18 21:31 Lab Results 10/27/18 10/27/18 Range/Units 21:31 21:31 WBC 10.3 (3.8-10.6) k/uL RBC 4.76 (4.30-5.90) m/uL Hgb 15.7 (13.0-17.5) gm/dL Hct 46.8 (39.0-53.0) % MCV 98.3 (80.0-100.0) fL MCH 32.9 (25.0-35.0) pg MCHC 33.5 (31.0-37.0) g/dL RDW 13.6 (11.5-15.5) % Plt Count 217 (150-450) k/uL Neutrophils % 74 % Lymphocytes % 16 % Monocytes % 5 % Eosinophils % 3 % Basophils % 1 % Neutrophils # 7.7 (1.3-7.7) k/uL Lymphocytes # 1.6 (1.0-4.8) k/uL Monocytes # 0.5 (0-1.0) k/uL Eosinophils # 0.3 (0-0.7) k/uL Basophils # 0.1 (0-0.2) k/uL Sodium 140 (137-145) mmol/L Potassium 4.9 (3.5-5.1) mmol/L Chloride 104 (98-107) mmol/L Carbon Dioxide 26 (22-30) mmol/L Anion Gap 10 mmol/L BUN 12 (9-20) mg/dL Creatinine 0.71 (0.66-1.25) mg/dL Est GFR (CKD-EPI)AfAm >90 (>60 ml/min/1.73 sqM) Est GFR (CKD-EPI)NonAf >90 (>60 ml/min/1.73 sqM) Glucose 74 (74-99) mg/dL Calcium 9.8 (8.4-10.2) mg/dL Magnesium 2.3 (1.6-2.3) mg/dL Total Bilirubin 0.6 (0.2-1.3) mg/dL AST 53 (17-59) U/L ALT 35 (21-72) U/L Alkaline Phosphatase 88 (38-126) U/L Total Protein 8.5 H (6.3-8.2) g/dL Albumin 5.0 (3.5-5.0) g/dL - Radiology Data Radiology results: report reviewed (Reported imaging), image reviewed Disposition Clinical Impression: Leg pain, Dehydration, Smoking, Varicose vein of leg Disposition: HOME SELF-CARE Condition: Good Instructions (If sedation given, give patient instructions): Venous Insufficiency (DC), Peripheral Vascular Disease (ED), Dehydration (ED), Leg Pain (ED) Prescriptions: Ibuprofen 800 mg PO Q6HR PRN #20 tablet PRN Reason: Pain Is patient prescribed a controlled substance at d/c from ED?: No Referrals: None,Stated [Primary Care Provider] - 1-2 days
--- NOTE | 2018-10-27 21:25 | US ---
EXAMINATION TYPE: US venous doppler duplex LE RT DATE OF EXAM: 10/27/2018 9:17 PM COMPARISON: NONE CLINICAL HISTORY: Pain. Right leg pain following stent placement 2 to 3 weeks ago, patient on blood t hinners SIDE PERFORMED: Right TECHNIQUE: The lower extremity deep venous system is examined utilizing real time linear array sonog tisha with graded compression, doppler sonography and color-flow sonography. VESSELS IMAGED: External Iliac Vein (EIV) Common Femoral Vein Deep Femoral Vein Greater Saphenous Vein * Femoral Vein Popliteal Vein Small Saphenous Vein * Proximal Calf Veins (* superficial vessels) Right Leg: Appears negative for DVT IMPRESSION: No evidence of deep venous thrombosis in the right leg.
[2018-10-27 21:47] LABS: Basophils # (A) 0.1 k/uL (0-0.2); Basophils % (A) 1 %; Eosinophils # (A) 0.3 k/uL (0-0.7); Eosinophils % (A) 3 %; HCT 46.8 % (39.0-53.0); HGB 15.7 gm/dL (13.0-17.5); Lymphocytes # (A) 1.6 k/uL (1.0-4.8); Lymphocytes % (A) 16 %; MCH 32.9 pg (25.0-35.0); MCHC 33.5 g/dL (31.0-37.0); MCV 98.3 fL (80.0-100.0); Mean Platelet Volume 6.7; Monocytes # (A) 0.5 k/uL (0-1.0); Monocytes % (A) 5 %; Neutrophils # (A) 7.7 k/uL (1.3-7.7); Neutrophils % (A) 74 %; Platelet Count 217 k/uL (150-450); RBC 4.76 m/uL (4.30-5.90); RDW 13.6 % (11.5-15.5); WBC 10.3 k/uL (3.8-10.6)
[2018-10-27 21:55] LABS: ALT 35 U/L (21-72); AST 53 U/L (17-59); African American GFR (CKD) >90 (>60 ml/min/1.73 sqM); Alkaline Phosphatase 88 U/L (38-126); Anion Gap 10 mmol/L; Blood Urea Nitrogen 12 mg/dL (9-20); Calcium 9.8 mg/dL (8.4-10.2); Carbon Dioxide 26 mmol/L (22-30); Chloride 104 mmol/L (98-107); Glucose 74 mg/dL (74-99); Magnesium 2.3 mg/dL (1.6-2.3); Potassium 4.9 mmol/L (3.5-5.1); Sodium 140 mmol/L (137-145); Total Bilirubin 0.6 mg/dL (0.2-1.3); Total Protein 8.5 g/dL (6.3-8.2)
[2018-10-27 23:45] VITALS: BP 114/87; PULSE 54; TEMP 97
== END 2018-10-27 22:50 | disposition home or self-care (01) ==
LOC: EC 19:47
DX: I83.811 Varicose veins of right lower extremity with pain (principal); E86.0 Dehydration; F17.210 Nicotine dependence, cigarettes, uncomplicated; I73.9 Peripheral vascular disease, unspecified; F10.10 Alcohol abuse, uncomplicated; I48.91 Unspecified atrial fibrillation; Z79.02 Long term (current) use of antithrombotics/antiplatelets; Z79.82 Long term (current) use of aspirin; Z79.899 Other long term (current) drug therapy; Z95.820 Peripheral vascular angioplasty status with implants and grafts; Z71.6 Tobacco abuse counseling
CPT/HCPCS: 36415; 80053; 83735; 85025; 99284

== ENCOUNTER 2019-11-20 21:04 | Emergency (ER) | payer OTHER ==
[2019-11-20 21:13] VITALS: BP 154/88; PULSE 93; RESP 18; TEMP 98.3
--- NOTE | 2019-11-20 21:53 | ED ---
Lower Extremity Injury HPI - General Chief Complaint: Extremity Injury, Lower Stated Complaint: L Leg Pain/Numbness Time Seen by Provider: 11/20/19 21:21 Source: patient Mode of arrival: wheelchair Limitations: no limitations - History of Present Illness Initial Comments: Patient is a 59-year-old male presenting to the emergency Department with complaints of pain in his left lower leg for 2 days. Patient states he has a history of varicose veins in both of his lower legs but states the pain has been increasing over the past few days. Patient also believes his left lower leg is slightly swollen compared to the right. He states he does have history of DVT in the right lower extremity is supposed be on blood thinners however he does not have insurance and was not able to continue with that medication. He denies any chest pain, shortness of breath, fever or chills. 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 He denies any injuries or trauma to his left leg. He has no further complaints. - Related Data Previous Rx's Medication Instructions Recorded Aspirin 81 mg PO DAILY #30 chew 10/05/18 Atorvastatin [Lipitor] 40 mg PO HS #30 tab 10/05/18 Clopidogrel [Plavix] 75 mg PO DAILY #30 tablet 10/05/18 Metoprolol Tartrate [Lopressor] 25 mg PO BID #60 tab 10/05/18 Ibuprofen 800 mg PO Q6HR PRN #20 tablet 10/27/18 Allergies Allergy/AdvReac Type Severity Reaction Status Date / Time No Known Allergies Allergy Verified 10/27/18 21:01 Review of Systems ROS Statement: Those systems with pertinent positive or pertinent negative responses have been documented in the HPI. ROS Other: All systems not noted in ROS Statement are negative. Past Medical History Past Medical History: No Reported History, Atrial Fibrillation Additional Past Medical History / Comment(s): alcoholism and smoker History of Any Multi-Drug Resistant Organisms: None Reported Past Surgical History: Tonsillectomy Additional Past Surgical History / Comment(s): stent to rt leg Past Anesthesia/Blood Transfusion Reactions: No Reported Reaction Past Psychological History: Anxiety Smoking Status: Current every day smoker Past Alcohol Use History: Abuse, Daily Past Drug Use History: None Reported - Past Family History Mother Family Medical History: Diabetes Mellitus, Hypertension Additional Family Medical History / Comment(s): Family history of varicose veins. Father Family Medical History: CVA/TIA, Myocardial Infarction ([place]) General Exam - General Exam Comments Initial Comments: GENERAL: Patient is well-developed and well-nourished. Patient is nontoxic and in no acute distress. HEAD: Atraumatic, normocephalic. EYES: Pupils equal round and reactive to light, extraocular movements intact, sclera anicteric, conjunctiva are normal. Eyelids were unremarkable. ENT: TMs normal, nares patent, oropharynx clear without exudates. Moist mucous membranes. NECK: Normal range of motion, supple without lymphadenopathy or JVD. LUNGS: Unlabored respirations. Breath sounds clear to auscultation bilaterally and equal. No wheezes rales or rhonchi. HEART: Regular rate and rhythm without murmurs, rubs or gallops. ABDOMEN: Soft, nontender, normoactive bowel sounds. No guarding, no rebound. No masses appreciated. : Deferred MUSCULOSKELETAL: Patient has extensive varicose veins of the left lower extremity, he is neurovascular intact. He does have some pain of the left calf, mild swelling compared to the right lower leg. There is no erythema. Normal range of motion of the left lower extremity. No clubbing or cyanosis. NEUROLOGICAL: Patient is alert and oriented x 3. Motor and sensory are also intact. Cranial nerves II through XII grossly intact. Symmetrical smile. Normal speech, normal gait. PSYCH: Normal mood, normal affect. SKIN: Warm, Dry, normal turgor, no rashes or lesions noted. Limitations: no limitations Course Vital Signs 11/20/19 21:09 Temperature 98.3 F Pulse Rate 93 Respiratory 18 Rate Blood Pressure 154/88 O2 Sat by Pulse 98 Oximetry Medical Decision Making - Medical Decision Making Patient is a 59-year-old male here for left lower leg pain has been increasing in the past few days. There is some mild swelling, significant venous insufficiency. He is neurovascular intact. Ultrasound of the left lower extremity reveals no evidence for an acute DVT. I did discuss these findings w ith the patient. I strongly recommended wearing compression stockings especially while at work. Patient states he does not have a regular PCP, I will give him a referral to a PCP as well as vascular. Patient is stable for discharge. He is in agreement with this plan of care. Return parameters were discussed with the patient he verbalizes understanding. Disposition Clinical Impression: Left leg pain, Varicose veins of both lower extremities Disposition: HOME SELF-CARE Condition: Stable Instructions (If sedation given, give patient instructions): Venous Insufficiency (DC) Additional Instructions: Please return to the Emergency Department if symptoms worsen or any other concerns. Recommend compression stockings as discussed. May take ibuprofen for discomfort. Need to follow up with PCP and vascular doctor. Is patient prescribed a controlled substance at d/c from ED?: No Referrals: None,Stated [Primary Care Provider] - 1-2 days Forrest Rollins MD [REFERRING] - 1-2 days Chris Lemus DO [STAFF PHYSICIAN] - 1-2 days
--- NOTE | 2019-11-20 22:48 | US ---
EXAMINATION TYPE: US venous doppler duplex LE LT DATE OF EXAM: 11/20/2019 10:41 PM COMPARISON: RLEV CLINICAL HISTORY: pain, swelling. Pain and swelling in left leg x 3 days. Hx DVT in right leg per pat ient. Patient not taking blood thinner. SIDE PERFORMED: Left TECHNIQUE: The lower extremity deep venous system is examined utilizing real time linear array sonog tisha with graded compression, doppler sonography and color-flow sonography. VESSELS IMAGED: External Iliac Vein (EIV) Common Femoral Vein Deep Femoral Vein Greater Saphenous Vein * Femoral Vein Popliteal Vein Small Saphenous Vein * Proximal Calf Veins (* superficial vessels) Left Leg: No evidence of DVT in veins imaged at this time from prox calf veins to EIV. IMPRESSION: No sign of deep vein thrombosis in the left leg.
== END 2019-11-20 23:30 | disposition home or self-care (01) ==
LOC: EC 21:04
DX: I83.93 Asymptomatic varicose veins of bilateral lower extremities (principal); F17.200 Nicotine dependence, unspecified, uncomplicated; Z86.718 Personal history of other venous thrombosis and embolism
CPT/HCPCS: 99283

== ENCOUNTER 2020-01-21 08:28 | Observation (INO) | payer OTHER ==
[2020-01-21 08:44] LABS: Glucose,Whole Blood 108 mg/dL (75-99)
[2020-01-21] MEDS ORDERED: SODIUM CHLORIDE 0.9% 1,000 ML IV STA (08:56)
[2020-01-21] MEDS ORDERED: RX INFO: IV CONTRAST WAS GIVEN 1 EACH MISC MISCELLANE PRN (08:59)
--- NOTE | 2020-01-21 09:03 | ED ---
General Adult HPI - General Chief complaint: Neuro Symptoms/Deficit Stated complaint: Numb Right Leg Time Seen by Provider: 01/21/20 08:38 Source: patient, RN notes reviewed Mode of arrival: ambulatory Limitations: no limitations - History of Present Illness Initial comments: Patient is a pleasant 59-year-old male presenting to the emergency Department with complaints of right lower leg pain. Onset of symptoms was around 2 days ago. Symptoms have progressively worsened since that time. Patient does have history of similar symptoms in September of last year where he did need angiogram and stent placement. Patient states he was doing well until just a couple of days ago. Patient states he does continue to smoke. Patient states he is no longer taking his blood thinners. Patient states he has minimal symptoms on his left leg however right leg is severe rated 9/10. Patient states there is decreased sensation however it is painful. - Related Data Home Medications Medication Instructions Recorded Confirmed No Known Home Medications 01/21/20 01/21/20 Allergies Allergy/AdvReac Type Severity Reaction Status Date / Time No Known Allergies Allergy Verified 01/21/20 09:00 Review of Systems ROS Statement: Those systems with pertinent positive or pertinent negative responses have been documented in the HPI. ROS Other: All systems not noted in ROS Statement are negative. Constitutional: Denies: fever Eyes: Denies: eye pain ENT: Denies: ear pain Respiratory: Denies: cough Cardiovascular: Reports: as per HPI. Denies: chest pain Endocrine: Denies: fatigue Gastrointestinal: Denies: abdominal pain Genitourinary: Denies: dysuria Musculoskeletal: Reports: as per HPI. Denies: back pain Skin: Denies: rash Neurological: Denies: weakness Past Medical History Past Medical History: No Reported History, Atrial Fibrillation Additional Past Medical History / Comment(s): alcoholism and smoker History of Any Multi-Drug Resistant Organisms: None Reported Past Surgical History: Tonsillectomy Additional Past Surgical History / Comment(s): stent to rt leg Past Anesthesia/Blood Transfusion Reactions: No Reported Reaction Past Psychological History: Anxiety Smoking Status: Current every day smoker Past Alcohol Use History: Abuse, Daily Past Drug Use History: None Reported - Past Family History Mother Family Medical History: Diabetes Mellitus, Hypertension Additional Family Medical History / Comment(s): Family history of varicose veins. Father Family Medical History: CVA/TIA, Myocardial Infarction ([place]) General Exam Limitations: no limitations General appearance: alert, in no apparent distress Head exam: Present: normocephalic Eye exam: Present: normal appearance Neck exam: Present: normal inspection Respiratory exam: Present: normal lung sounds bilaterally Cardiovascular Exam: Present: regular rate, normal rhythm, other (Unable to obtain Doppler pulse on either dorsalis pedis or right posterior tibialis. Good Doppler with left posterior tibialis) Expanded Peripheral pulses: 0: Posterior Tibialis (R), Posterior Tibialis (L), Dorsalis Pedis (R), Dorsalis Pedis (L), 2+: Femoral (R), Femoral (L) GI/Abdominal exam: Present: soft. Absent: tenderness Extremities exam: Present: calf tenderness (On the right). Absent: pedal edema Neurological exam: Present: alert. Absent: motor sensory deficit Psychiatric exam: Present: normal affect, normal mood Skin exam: Present: other (Mild cyanotic/purplish discoloration of the distal toes right greater than left. Cap refill 3-4 seconds on the right. Cap refill 3 seconds on the left.) Course Vital Signs 01/21/20 01/21/20 08:33 10:50 Temperature 97.9 F Pulse Rate 67 81 Respiratory 18 16 Rate Blood Pressure 187/105 183/114 O2 Sat by Pulse 98 99 Oximetry - Reevaluation(s) Reevaluation #1: 01/21/20 09:03 Case was discussed with Dr. Doss who does request CTA of the extremity and creatinine is good. He will notify Dr. Nuno to come evaluate patient. EKG Findings - EKG Comments: EKG Findings:: Sinus rhythm 87. VA 132. QRS 126. QT 412. QTC 40 5P left axis. Right bundle branch block. LVH criteria. Nonspecific ST-T. PVCs present. Medical Decision Making - Medical Decision Making Practitioner with Dr. Nuno came down to evaluate patient and started heparin. Patient still has pain. Patient updated. Patient reevaluated Case was also discussed with Dr. Elizabeth, who will admit covered for hospital call. Dr. Nuno did evaluate patient and does plan on taking patient for procedure later. - Lab Data Result diagrams: 01/21/20 09:02 01/21/20 09:02 Lab Results 01/21/20 01/21/20 01/21/20 Range/Units 08:42 09:02 09:02 WBC 11.1 H (3.8-10.6) k/uL RBC 5.89 (4.30-5.90) m/uL Hgb 19.4 H* (13.0-17.5) gm/dL Hct 59.9 H* (39.0-53.0) % MCV 101.9 H (80.0-100.0) fL MCH 32.9 (25.0-35.0) pg MCHC 32.3 (31.0-37.0) g/dL RDW 13.2 (11.5-15.5) % Plt Count 204 (150-450) k/uL MPV 7.8 Neutrophils % 73 % Lymphocytes % 17 % Monocytes % 6 % Eosinophils % 1 % Basophils % 0 % Neutrophils # 8.2 H (1.3-7.7) k/uL Lymphocytes # 1.9 (1.0-4.8) k/uL Monocytes # 0.7 (0-1.0) k/uL Eosinophils # 0.2 (0-0.7) k/uL Basophils # 0.0 (0-0.2) k/uL Macrocytosis Slight PT 10.3 (9.0-12.0) sec INR 1.0 (<1.2) APTT 26.0 (22.0-30.0) sec Sodium (137-145) mmol/L Potassium (3.5-5.1) mmol/L Chloride (98-107) mmol/L Carbon Dioxide (22-30) mmol/L Anion Gap mmol/L BUN (9-20) mg/dL Creatinine (0.66-1.25) mg/dL Est GFR (CKD-EPI)AfAm (>60 ml/min/1.73 sqM) Est GFR (CKD-EPI)NonAf (>60 ml/min/1.73 sqM) Glucose (74-99) mg/dL POC Glucose (mg/dL) 108 H (75-99) mg/dL POC Glu Pattern Repair Person ID Fritz Olvera Plasma Lactic Acid Juancarlos (0.7-2.0) mmol/L Calcium (8.4-10.2) mg/dL Total Bilirubin (0.2-1.3) mg/dL AST (17-59) U/L ALT (4-49) U/L Alkaline Phosphatase (38-126) U/L Total Protein (6.3-8.2) g/dL Albumin (3.5-5.0) g/dL 01/21/20 01/21/20 Range/Units 09:02 09:02 WBC (3.8-10.6) k/uL RBC (4.30-5.90) m/uL Hgb (13.0-17.5) gm/dL Hct (39.0-53.0) % MCV (80.0-100.0) fL MCH (25.0-35.0) pg MCHC (31.0-37.0) g/dL RDW (11.5-15.5) % Plt Count (150-450) k/uL MPV Neutrophils % % Lymphocytes % % Monocytes % % Eosinophils % % Basophils % % Neutrophils # (1.3-7.7) k/uL Lymphocytes # (1.0-4.8) k/uL Monocytes # (0-1.0) k/uL Eosinophils # (0-0.7) k/uL Basophils # (0-0.2) k/uL Macrocytosis PT (9.0-12.0) sec INR (<1.2) APTT (22.0-30.0) sec Sodium 135 L (137-145) mmol/L Potassium 5.3 H (3.5-5.1) mmol/L Chloride 103 (98-107) mmol/L Carbon Dioxide 20 L (22-30) mmol/L Anion Gap 12 mmol/L BUN 9 (9-20) mg/dL Creatinine 0.86 (0.66-1.25) mg/dL Est GFR (CKD-EPI)AfAm >90 (>60 ml/min/1.73 sqM) Est GFR (CKD-EPI)NonAf >90 (>60 ml/min/1.73 sqM) Glucose 118 H (74-99) mg/dL POC Glucose (mg/dL) (75-99) mg/dL POC Glu Pattern Repair Person ID Plasma Lactic Acid Juancarlos 3.2 H* (0.7-2.0) mmol/L Calcium 9.7 (8.4-10.2) mg/dL Total Bilirubin 0.9 (0.2-1.3) mg/dL AST 187 H (17-59) U/L ALT 84 H (4-49) U/L Alkaline Phosphatase 95 (38-126) U/L Total Protein 8.3 H (6.3-8.2) g/dL Albumin 4.8 (3.5-5.0) g/dL - Radiology Data Radiology results: report reviewed (Ultrasound negative for DVT), image reviewed Disposition Clinical Impression: Arterial insufficiency of lower extremity Disposition: ADMITTED IP TO THIS [facility] Condition: Serious Is patient prescribed a controlled substance at d/c from ED?: No Decision Time: 10:53
[2020-01-21] MEDS: HYDROmorphone 1 MG/ML 1 ML SYRINGE IVP STA ×2 (09:06→10:54)
[2020-01-21 09:09] LABS: Basophils % (A) 0 %; Eosinophils # (A) 0.2 k/uL (0-0.7); Eosinophils % (A) 1 %; Lymphocytes # (A) 1.9 k/uL (1.0-4.8); Lymphocytes % (A) 17 %; MCH 32.9 pg (25.0-35.0); MCHC 32.3 g/dL (31.0-37.0); MCV 101.9 fL (80.0-100.0); Macrocytosis Slight; Mean Platelet Volume 7.8; Monocytes # (A) 0.7 k/uL (0-1.0); Monocytes % (A) 6 %; Neutrophils # (A) 8.2 k/uL (1.3-7.7); Neutrophils % (A) 73 %; Platelet Count 204 k/uL (150-450); RBC 5.89 m/uL (4.30-5.90); RDW 13.2 % (11.5-15.5); WBC 11.1 k/uL (3.8-10.6)
[2020-01-21 09:18] LABS: Prothrombin Time 10.3 sec (9.0-12.0)
[2020-01-21] MEDS ORDERED: HEPARIN SODIUM,PORCINE 10,000 UNIT/ML 1 ML VIAL IV ONE (09:20)
[2020-01-21] MEDS ORDERED: HEPARIN SODIUM,PORCINE 5,000 UNIT/ML 1 ML VIAL IV PRN (09:20)
[2020-01-21 09:22] LABS: ALT 84 U/L (4-49); AST 187 U/L (17-59); African American GFR (CKD) >90 (>60 ml/min/1.73 sqM); Albumin 4.8 g/dL (3.5-5.0); Alkaline Phosphatase 95 U/L (38-126); Anion Gap 12 mmol/L; Blood Urea Nitrogen 9 mg/dL (9-20); Calcium 9.7 mg/dL (8.4-10.2); Carbon Dioxide 20 mmol/L (22-30); Chloride 103 mmol/L (98-107); Glucose 118 mg/dL (74-99); Non-African American GFR(CKD) >90 (>60 ml/min/1.73 sqM); Potassium 5.3 mmol/L (3.5-5.1); Sodium 135 mmol/L (137-145); Total Bilirubin 0.9 mg/dL (0.2-1.3); Total Protein 8.3 g/dL (6.3-8.2)
[2020-01-21 09:32] LABS: HCT 59.9 % (39.0-53.0); HGB 19.4 gm/dL (13.0-17.5)
[2020-01-21] MEDS: HEPARIN SOD,PORK IN 0.45% NACL 25,000 UNIT in 0.45% NACL 1 250ML.BAG IV SCH (09:41)
--- NOTE | 2020-01-21 09:49 | US ---
EXAMINATION TYPE: US venous doppler duplex LE RT DATE OF EXAM: 01/21/2020 9:00 AM COMPARISON: US 10/27/18 CLINICAL HISTORY: pain. right leg pain SIDE PERFORMED: Right TECHNIQUE: The lower extremity deep venous system is examined utilizing real time linear array sonog tisha with graded compression, doppler sonography and color-flow sonography. VESSELS IMAGED: Common Femoral Vein Deep Femoral Vein Greater Saphenous Vein * Femoral Vein Popliteal Vein Small Saphenous Vein * Proximal Calf Veins (* superficial vessels) There is normal flow, compressibility, vascular waveforms. Right Leg: Negative for DVT IMPRESSION: No evident deep venous thrombosis at or above the right knee
[2020-01-21] MEDS ORDERED: HYDROmorphone 0.5 MG/0.5 ML SYRINGE IVP PRN (10:53)
[2020-01-21] MEDS ORDERED: NALOXONE 0.4 MG/ML 1 ML VIAL IV PRN (10:53)
--- NOTE | 2020-01-21 11:21 | CT ---
EXAMINATION TYPE: CT angio abd aorta w/Runoff DATE OF EXAM: 01/21/2020 COMPARISON: 10/01/2018 HISTORY: 59-year-old male cold Rt lower ext, nonpalpable bilateral PT pulse, history of Rt leg stent TECHNIQUE: Contiguous axial scanning of the abdomen and pelvis with bilateral lower extremity runoff performed without and with IV Contrast, patient injected with 125 mL of Isovue 370. Coronal and sagit beulah MIP reconstructions performed. 3-D reconstructions generated on a dedicated independent workstati on. CT DLP: 1520.5 mGycm Automated exposure control for dose reduction was used. FINDINGS: Heart normal size without pericardial effusion. Some dependent atelectasis of the visualized lung bas es without pleural effusion. Early arterial phase imaging of the liver, gallbladder, spleen, and pancreas show no gross hepatomega ly. Hypodense bilateral renal lesions measuring up to 1.6 cm. Many of these are too small fracture CT david racterization but these likely represent cysts. Mild diffuse thickening of the bilateral adrenal glands without discrete nodularity. No dilated small bowel, free fluid, or free air. No mesenteric or retroperitoneal lymphadenopathy. Prominent fluid filled small bowel loops mid and lower abdomen and some liquid stool noted within the right side of the colon. Moderate circumferential bladder wall thickening. Moderate-sized fatty direct left inguinal hernia. P rostate gland measures 4.9 cm wide. No abnormal fluid collection in the pelvis. Some scattered promin ent lymph nodes such as along the left external iliac chain measuring up to 7 mm, probably reactive/p ost inflammatory, unchanged from 2019. Bones: Degenerative changes at the hips. Facet arthropathy lower lumbar spine. VASCULATURE: Moderate atherosclerotic calcifications and plaque within the infrarenal abdominal aorta and iliac ar teries. There is fusiform infrarenal ectasia measuring 2.9 cm versus 2.7 cm on 10/01/2018. Celiac access and SMA are patent. Accessory left renal artery noted with patent bilateral renal arter ies. Right: Segmental areas of mild to moderate atherosclerotic narrowing within the right common and external il iac arteries. Scattered mild atherosclerotic narrowing throughout the right LENS COATER. Mild to moderate atherosclerotic n arrowing at the origin of the profunda femoral artery. Occlusion of the SFA at the proximal portion similar to 10/01/2018. A distal SFA and proximal popliteal artery stent is visualized and is nonopacified. Minimal reconstitution of contrast within the mid popliteal artery with subsequent cut off distally. No runoff seen to the foot. Left: Segmental areas of mild to moderate atherosclerotic narrowing within the left common and external zack ac arteries. Mild atherosclerotic plaque calcification in the LENS COATER. The profunda femoral artery is patent. Occlusion of the left SFA at its proximal segment on this side as well. Faint reconstitution at the distal SFA just beyond the adductor hiatus. Mild diffuse narrowing throughout the popliteal artery. The tibial peroneal trunk is very diminutive as are the trifurcation vessels. Anterior tibial artery and peroneal artery are not seen beyond the mid leg level. Faint posterior tibial artery is seen to t he hindfoot. IMPRESSION: 1. MODERATE CIRCUMFERENTIAL BLADDER WALL THICKENING COULD REPRESENT CHRONIC BLADDER WALL HYPERTROPHY OR CYSTITIS. 2. MODERATE-SIZED FATTY DIRECT LEFT INGUINAL HERNIA. RIGHT: 3. Proximal SFA occlusion/reocclusion similar to 10/01/2018. 4. Distal SFA and proximal popliteal artery stent is visualized and is nonopacified. 5. There is minimal reconstitution of contrast in the mid popliteal artery but with subsequent cut of f and no runoff seen distal to this level. LEFT: 6. Proximal SFA occlusion on this side as well, new compared to 10/01/2018. 7. Faint reconstitution at the distal SFA just beyond the adductor hiatus. Mild diffuse narrowing of the popliteal artery. 8. The tibial peroneal trunk is very diminutive as are the trifurcation vessels. 9. Anterior tibial artery and peroneal artery are not seen beyond the mid leg level. 10. Faint posterior tibial artery is seen into the hindfoot.
[2020-01-21] MEDS ORDERED: LIDOCAINE 1% INJ 10MG/ML (20 ML MDV) SQ ONE ×2 (12:10→12:11)
[2020-01-21] MEDS ORDERED: fentaNYL (PF) 50 MCG/ML 2 ML AMP IV ONE (12:10)
[2020-01-21] MEDS ORDERED: MIDAZOLAM 2 MG/2 ML VIAL IV ONE ×2 (12:10)
[2020-01-21] MEDS ORDERED: IV FLUID CONTINUATION 1,000 ML IV ONE (12:11)
[2020-01-21] MEDS ORDERED: ALTEPLASE 10 MG in SODIUM CHLORIDE 0.9% 100 ML IA ONE (12:34)
[2020-01-21] MEDS ORDERED: ALTEPLASE 2 MG VIAL (CATHFLO) IV STA (12:34)
[2020-01-21] MEDS ORDERED: HEPARIN SODIUM 1,000 UN/ML (10ML VL) IV ONE (12:40)
[2020-01-21] MEDS ORDERED: IOPAMIDOL-250 100ML BTL INTRAARTER ONE (12:49)
--- NOTE | 2020-01-21 12:57 | P.GSCN ---
History of Present Illness Consult date: 01/21/20 Reason for Consult: Right lower extremity with no pulses, cold foot Requesting physician: Phil Montelongo History of present illness: This is a pleasant 51-year-old male who came into the emergency department complaining of increased pain and decreased sensation and movement of his right lower extremity. He states for the past 1-2 months the pain in bilateral lower extremities, however right greater than left has become progressively worse especially with walking. In the last 2-3 days he has noticed his right lower extremity with increased pain, decreased sensation and movement at the ankle foot and toes. He has a past medical history of peripheral arterial disease, alcohol abuse, and every day smoker. He was seen by Dr. Nuno in September 2018 while hospitalized with complaints of right lower extremity pain, he had a right superficial femoral artery occlusion with reconstitution at the popliteal artery and three-vessel runoff. At that time he underwent a selective right lower extremity angiogram with thrombolytics with angioplasty and stent placement. The patient was prescribed aspirin and Plavix and instructed he would need to remain on it as well as follow-up with vascular surgery. However the patient did not remain on any medication or follow-up with vascular surgery. He is denying any shortness of breath, chest pain, fever, abdominal pain, nausea or vomiting. He underwent a venous Doppler of the right lower extremity which was negative for DVT. CT angiogram abdominal aorta with runoff showed moderate circumferential bladder wall thickening could represent chronic bladder wall hypertrophy or cystitis, moderate size fatty direct left inguinal hernia. Right proximal SFA occlusion/3 occlusion similar to 10/01/2018. Distal SFA and proximal popliteal artery stent is visualized and is non opacified. There is minimal reconstitution of contrast in the mid popliteal artery but with subsequent coronal and no runoff seen distal to this level. There is left proximal SFA occlusion on this side as well, new compared to 10/01/2017. There is faint reconstitution at the distal S FA just beyond the adductor hiatus. Mild diffuse narrowing of the popliteal artery. The tibial peroneal trunk is very communicative as are the trifurcation vessels. Anterior tibial artery and peroneal artery are not seen beyond the mid leg level. Faint posterior tibial artery is seen in the hindfoot. Review of Systems A 14 point review of systems was completed all pertinent positives and negatives as stated in the HPI. Past Medical History Past Medical History: No Reported History, Atrial Fibrillation Additional Past Medical History / Comment(s): alcoholism and smoker History of Any Multi-Drug Resistant Organisms: None Reported Past Surgical History: Tonsillectomy Additional Past Surgical History / Comment(s): stent to rt leg Past Anesthesia/Blood Transfusion Reactions: No Reported Reaction Past Psychological History: Anxiety Smoking Status: Current every day smoker Past Alcohol Use History: Abuse, Daily Past Drug Use History: None Reported - Past Family History Mother Family Medical History: Diabetes Mellitus, Hypertension Additional Family Medical History / Comment(s): Family history of varicose veins. Father Family Medical History: CVA/TIA, Myocardial Infarction ([place]) Medications and Allergies Home Medications Medication Instructions Recorded Confirmed Type No Known Home Medications 01/21/20 01/21/20 History Allergies Allergy/AdvReac Type Severity Reaction Status Date / Time No Known Allergies Allergy Verified 01/21/20 09:00 Surgical - Exam Vital Signs Temp Pulse Resp BP Pulse Ox 97.9 F 67 18 187/105 98 01/21/20 08:33 01/21/20 08:33 01/21/20 08:33 01/21/20 08:33 01/21/20 08:33 General appearance: The patient is alert, oriented, in no acute distress. HET: Head is normocephalic and atraumatic. Neck: Supple without lymphadenopathy. Trachea midline. Heart: S1 S2. Regular rate and rhythm. Lungs: No crackles or wheezes are heard. Abdomen: Soft, nontender, nondistende. Extremities: Bilateral palpable femoral pulses. Bilateral lower extremities with swollen varicosities. Right foot cool to touch, pale, decreased capillary refill. Unable to palpate or obtain Doppler signal of the right popliteal, p osterior tibialis or dorsalis pedis. Left foot cool to touch, pain, good capillary refill. Monophasic Doppler signal obtained left popliteal and posterior tibialis, no Doppler signal found for left dorsalis pedis. Patient has some decreased range of motion of the right foot and toes. Neurological: No focal deficits. Decreased sensation to the right lower extremity. Results Ultrasound venous Doppler right lower extremity reviewed negative for DVT CT angiogram with runoff viewed by Dr. Nuno which showed moderate circumferential bladder wall thickening could represent chronic bladder wall hypertrophy or cystitis, moderate size fatty direct left inguinal hernia. Right proximal SFA occlusion/3 occlusion similar to 10/01/2018. Distal SFA and proximal popliteal artery stent is visualized and is non opacified. There is minimal reconstitution of contrast in the mid popliteal artery but with subsequent coronal and no runoff seen distal to this level. There is left proximal SFA occlusion on this side as well, new compared to 10/01/2017. There is faint reconstitution at the distal SFA just beyond the adductor hiatus. Mild diffuse narrowing of the popliteal artery. The tibial peroneal trunk is very communicative as are the trifurcation vessels. Anterior tibial artery and peroneal artery are not seen beyond the mid leg level. Faint posterior tibial a rtery is seen in the hindfoot. - Labs 01/21/20 09:02 01/21/20 09:02 Abnormal Lab Results - Last 24 Hours (Table) 01/21/20 01/21/20 01/21/20 Range/Units 08:42 09:02 09:02 WBC 11.1 H (3.8-10.6) k/uL Hgb 19.4 H* (13.0-17.5) gm/dL Hct 59.9 H* (39.0-53.0) % MCV 101.9 H (80.0-100.0) fL Neutrophils # 8.2 H (1.3-7.7) k/uL Sodium 135 L (137-145) mmol/L Potassium 5.3 H (3.5-5.1) mmol/L Carbon Dioxide 20 L (22-30) mmol/L Glucose 118 H (74-99) mg/dL POC Glucose (mg/dL) 108 H (75-99) mg/dL Plasma Lactic Acid Juancarlos (0.7-2.0) mmol/L AST 187 H (17-59) U/L ALT 84 H (4-49) U/L Total Protein 8.3 H (6.3-8.2) g/dL 01/21/20 Range/Units 09:02 WBC (3.8-10.6) k/uL Hgb (13.0-17.5) gm/dL Hct (39.0-53.0) % MCV (80.0-100.0) fL Neutrophils # (1.3-7.7) k/uL Sodium (137-145) mmol/L Potassium (3.5-5.1) mmol/L Carbon Dioxide (22-30) mmol/L Glucose (74-99) mg/dL POC Glucose (mg/dL) (75-99) mg/dL Plasma Lactic Acid Juancarlos 3.2 H* (0.7-2.0) mmol/L AST (17-59) U/L ALT (4-49) U/L Total Protein (6.3-8.2) g/dL Diabetes panel 01/21/20 Range/Units 09:02 Sodium 135 L (137-145) mmol/L Potassium 5.3 H (3.5-5.1) mmol/L Chloride 103 (98-107) mmol/L Carbon Dioxide 20 L (22-30) mmol/L BUN 9 (9-20) mg/dL Creatinine 0.86 (0.66-1.25) mg/dL Glucose 118 H (74-99) mg/dL Calcium 9.7 (8.4-10.2) mg/dL AST 187 H (17-59) U/L ALT 84 H (4-49) U/L Alkaline Phosphatase 95 (38-126) U/L Total Protein 8.3 H (6.3-8.2) g/dL Albumin 4.8 (3.5-5.0) g/dL Calcium panel 01/21/20 Range/Units 09:02 Calcium 9.7 (8.4-10.2) mg/dL Albumin 4.8 (3.5-5.0) g/dL Pituitary panel 01/21/20 Range/Units 09:02 Sodium 135 L (137-145) mmol/L Potassium 5.3 H (3.5-5.1) mmol/L Chloride 103 (98-107) mmol/L Carbon Dioxide 20 L (22-30) mmol/L BUN 9 (9-20) mg/dL Creatinine 0.86 (0.66-1.25) mg/dL Glucose 118 H (74-99) mg/dL Calcium 9.7 (8.4-10.2) mg/dL Adrenal panel 01/21/20 Range/Units 09:02 Sodium 135 L (137-145) mmol/L Potassium 5.3 H (3.5-5.1) mmol/L Chloride 103 (98-107) mmol/L Carbon Dioxide 20 L (22-30) mmol/L BUN 9 (9-20) mg/dL Creatinine 0.86 (0.66-1.25) mg/dL Glucose 118 H (74-99) mg/dL Calcium 9.7 (8.4-10.2) mg/dL Total Bilirubin 0.9 (0.2-1.3) mg/dL AST 187 H (17-59) U/L ALT 84 H (4-49) U/L Alkaline Phosphatase 95 (38-126) U/L Total Protein 8.3 H (6.3-8.2) g/dL Albumin 4.8 (3.5-5.0) g/dL Assessment and Plan Assessment: 1. Right lower extremity pain 2. Bilateral proximal superficial femoral artery occlusion 3. Peripheral arterial disease, status post history of right lower extremity angiogram with thrombolytics, angioplasty and stent (09/2018) 4. Bilateral lower extremity venous insufficiency with varicosities 5. Tobacco abuse 6. Alcohol abuse Plan: 1. CT angiogram abdominal aorta with runoff ordered and reviewed 2. Start Heparin drip 3. NPO 4. Patient scheduled today for aortogram with run offs, with possible thromboyltics 5. Smoking cessation 6. Alcohol cessation Thank you For this consultation allowing us to take part in the plan of care of your patient during his hospital stay The above dictated assessment and findings were discussed with Dr. Nuno. The impression and plan of care have been directed as dictated.
[2020-01-21] MEDS: hydrALAZINE HCL 20 MG/ML 1 ML VIAL ONE ×2 (13:05→13:07)
[2020-01-21] MEDS ORDERED: hydrALAZINE HCL 20 MG/ML 1 ML VIAL IVP STA (13:05)
[2020-01-21] MEDS: HYDROmorphone 1 MG/ML 1 ML SYRINGE IVP PRN ×3 (13:05→20:43)
[2020-01-21] MEDS ORDERED: HEPARIN SOD,PORK IN 0.45% NACL 25,000 UNIT in 0.45% NACL 1 250ML.BAG IV ONE (13:15)
--- NOTE | 2020-01-21 13:31 | P.OP ---
Date of Procedure: 01/21/20 Description of Procedure: Preoperative diagnosis: Acute limb ischemia right lower extremity, previous right lower extremity stent, tobacco abuse, medical noncompliance Postoperative diagnosis: Same Procedure: [#1 ultrasound guided left common femoral artery access #2 right lower extremity angiogram third order to distal popliteal artery #3 initiation of thrombolytics #4 Modicon sedation 31 minutes] Surgeon: Karolina Nuno D.O. EBL: [Less than 10 mL] IV fluids: [See records] Urine output: [Not measured] Drains: [None] Complications: [None immediately apparent] Condition: [Stable to recovery] Operative indication and findings: [Patient is a 59-year-old male with previous right lower extremity acute limb ischemia that was treated with thrombolytics and a popliteal artery stent. He presents with a similar problem from previous. He has not had any follow-up in the meantime has not taken his medications and continues to smoke tobacco. Risks and benefits of bleeding, infection and possible limb loss were discussed with the patient. He seemingly understood and was willing to proceed.] Procedure in detail: [The patient was taken to the special suite and placed in supine position. Bilateral groins are prepped and draped in usual sterile fashion. A preprocedure timeout was performed, all parties are in agreement. The ultrasound was utilized and the left common femoral artery was identified. The skin overlying was anesthetized 1% lidocaine plain. Using a multipurpose needle the artery was cannulated and there was return of blood, the wire did not pass sufficiently. The needle was removed and pressure was held. A micro- access needle was then used the artery was accessed Small wire was passed. A small sheath was placed. The 035 wire was placed Serial dilatation was performed due to stiff and scarred tissues. A 6-Panamanian catheter was placed. Guidewire and catheters were used access the right lower extremity. A right lower extremity angiogram was performed the common iliac artery revealing abrupt occlusion of the superficial femoral artery beyond its takeoff. The internal, external and common iliac arteries are patent without evidence of disease. The common and deep femoral arteries are patent without evidence of significant disease. At that point the sheath was exchanged for a long 6-[place]ian [place] sheath. This was done over a glide advantage wire. Catheters and wires were then used to cross the occluded portion and down past the previously placed stent. A crossing catheter was used to confirm luminal gain distally. This was performed at the popliteal artery below the knee. There was some significant stenosis at the level of the popliteal artery with an angiogram was performed via the sheath. A 40 cm infusion catheter was placed with the more proximal tip residing in the proximal SFA where there was patent flow. The distal tip ended at the distal femur. The catheter and sheath were sutured in place. TPA was instilled. The patient was transferred to recovery and subsequently to ICU in stable condition.]
--- NOTE | 2020-01-21 13:47 | IR ---
Fluoroscopy HISTORY: Right leg pain 4.1 minutes fluoroscopy time supplied to the referring clinician. 227 intraoperative C-arm images do cument the procedure. See dictated report from vascular surgery.
[2020-01-21] MEDS ORDERED: amLODIPine 5 MG TAB ONE (14:58)
[2020-01-21] MEDS ORDERED: LORazepam 2 MG/ML INJ IV PRN ×4 (15:31)
[2020-01-21] MEDS ORDERED: THIAMINE 100 MG/ML 2 ML VIAL IM STA (15:31)
[2020-01-21] MEDS: amLODIPine 10 MG TAB PO SCH (15:37)
[2020-01-21 17:04] LABS: Basophils # (A) 0.1 k/uL (0-0.2); Basophils % (A) 1 %; Eosinophils # (A) 0.1 k/uL (0-0.7); Eosinophils % (A) 1 %; HCT 53.5 % (39.0-53.0); HGB 17.8 gm/dL (13.0-17.5); Lymphocytes # (A) 1.2 k/uL (1.0-4.8); Lymphocytes % (A) 14 %; MCH 33.7 pg (25.0-35.0); MCHC 33.2 g/dL (31.0-37.0); MCV 101.3 fL (80.0-100.0); Monocytes # (A) 0.4 k/uL (0-1.0); Monocytes % (A) 4 %; Neutrophils # (A) 7.1 k/uL (1.3-7.7); Neutrophils % (A) 79 %; Platelet Count 172 k/uL (150-450); RBC 5.28 m/uL (4.30-5.90); RDW 12.9 % (11.5-15.5)
[2020-01-21 17:12] LABS: African American GFR (CKD) >90 (>60 ml/min/1.73 sqM); Blood Urea Nitrogen 11 mg/dL (9-20); Non-African American GFR(CKD) >90 (>60 ml/min/1.73 sqM)
[2020-01-21 17:14] LABS: INR 0.9 (<1.2); Partial Thromboplastin Time 50.8 sec (22.0-30.0); Prothrombin Time 9.8 sec (9.0-12.0)
[2020-01-21] MEDS: THIAMINE 100 MG TAB PO SCH (18:45)
[2020-01-21] MEDS ORDERED: cloNIDine HCL 0.1 MG TAB PO PRN (18:49)
--- NOTE | 2020-01-21 19:22 | XR ---
EXAMINATION TYPE: XR chest 1V portable DATE OF EXAM: 01/21/2020 COMPARISON: 02/15/2017 HISTORY: Pneumonia. Chest pain TECHNIQUE: FINDINGS: Heart is normal. Lungs are clear of consolidation. There are no hilar masses. Costophrenic angles are clear. Bony thorax is intact. There is some spurring in the lower thoracic spine. IMPRESSION: No active cardiopulmonary disease. No change.
--- NOTE | 2020-01-21 19:34 | HP ---
HISTORY AND PHYSICAL DATE OF ADMISSION: 01/21/2020 CHIEF COMPLAINTS: Right leg pain. HISTORY OF PRESENT ILLNESS: This 59-year-old gentleman with a past history of atrial fibrillation, history of alcoholism, history of smoking, history of anxiety, not being followed by any primary physician in the outpatient setting, presented to [facility] with complaints of numbness of the right leg and some bluish discoloration. The symptoms were getting worse 2 days prior to Thanksgiving according to him and because of increasing difficulty the patient came to [facility] and was admitted for further evaluation and treatment. Otherwise, last year, patient had angiogram and stent placement also. The patient continues to smoke. The patient underwent ultrasound guided left common femoral artery access and as well as right lower extremity angiogram and thrombolysis was initiated by the Dr. Nuno, and tPA was initiated. Patient was sent to ICU at this time. A CT angiogram showed moderate circumferential bladder wall thickening and as well as proximal SFA occlusion and distal SFA and proximal popliteal artery stent was visualized and is nonopacified. There is no history of fever, rigors. No headache, loss of consciousness, seizures at this time. PAST MEDICAL HISTORY: History of atrial fibrillation, history of alcoholism, history of previous peripheral vascular disease, anxiety. MEDICATIONS: Prior to admission include none. ALLERGIES: None. FAMILY HISTORY: Diabetes and hypertension in the family. History of varicose veins in the family. SOCIAL HISTORY: Continued smoking. Occasional alcohol intake. REVIEW OF SYSTEMS: ENT: No diminished vision or hearing. CARDIOVASCULAR: No angina. RESPIRATORY: As mentioned earlier. GI: No nausea, vomiting or diarrhea. : No dysuria. NERVOUS SYSTEM: No numbness or weakness. ALLERGY/IMMUNOLOGY: No asthma or hayfever. MUSCULOSKELETAL: As mentioned earlier. HEMATOLOGY: No history of anemia. ENDOCRINE: No history of diabetes or hypothyroidism. CONSTITUTIONAL: As mentioned earlier. DERMATOLOGY: Negative. RHEUMATOLOGY: Negative. PSYCHIATRY: As mentioned earlier. PHYSICAL EXAMINATION: GENERAL: Patient is alert and oriented times three. VITAL SIGNS: Pulse 80, blood pressure 123/90, respirations 20, temperature normal, pulse ox 92% on room air. HEENT: Conjunctivae normal. Oral mucosa moist. NECK: No jugular venous distention. No carotid bruits. No lymph node enlargement. RESPIRATORY: Breath sounds diminished at the bases. No rhonchi, no crackles. HEART: S1 and S2, muffled. No S3 or S4. ABDOMEN: Soft, no tenderness. EXTREMITIES: Status post tPA infusion of the right leg. Some discoloration, diminished pulses, some pain the right leg was present. NERVOUS: Higher functions as mentioned earlier. Moves all four limbs except right leg. No focal motor deficits. No sensory abnormalities. SKIN: No ulcers or rashes. JOINTS: No active deforming arthropathy. LYMPHATICS: No lymph nodes palpable in the neck or axillae. LABS: WBC 11.1, hemoglobin is 19.4. Sodium 138, potassium 3.5, plasma lactic acid 3.2, bilirubin is 0.9, AST is 187, ALT is 84. ASSESSMENT: 1. Peripheral vascular disease with superficial femoral artery occlusion on the right side, status post tPA. 2. History of peripheral vascular disease and stenting previously. 3. Polycythemia. 4. Increased WBC. 5. Hyponatremia. 6. Hyperkalemia. 7. Elevated lactic acid. 8. Increased AST, ALT, possibly alcoholic hepatitis. 9. History of ETOH. 10.History atrial fibrillation. 11.History of nicotine dependence. 12.History of anxiety. 13.History of noncompliance. 14.Congestive heart failure with chronic systolic dysfunction with ejection fraction of 40-50%. 15.FULL CODE. RECOMMENDATIONS AND DISCUSSION: Recommend to continue current medications, monitor and symptomatic treatment. Otherwise at this time I recommend continue with tPA. Monitor blood sugars closely. Otherwise, repeat abnormal labs. The patient also has history of cardiomyopathy and CIWA protocol. A 2D echo with Doppler done last year showed evidence of ejection fraction 45% to 50% and mild to moderate mitral regurgitation was also visualized. We will continue to monitor. The patient may be asked to follow up with primary physician closely after discharge. We will also obtain a cardiology consultation. Prognosis guarded. Further recommendations to follow. Will closely follow with Dr. Nuno, the vascular surgeon. MMODL / IJN: [id number] /
[2020-01-21 21:35] LABS: Basophils # (A) 0.1 k/uL (0-0.2); Basophils % (A) 1 %; Eosinophils # (A) 0.2 k/uL (0-0.7); Eosinophils % (A) 2 %; HGB 16.4 gm/dL (13.0-17.5); Lymphocytes # (A) 1.3 k/uL (1.0-4.8); Lymphocytes % (A) 13 %; MCH 32.9 pg (25.0-35.0); MCHC 32.9 g/dL (31.0-37.0); MCV 100.3 fL (80.0-100.0); Mean Platelet Volume 8.2; Monocytes # (A) 0.7 k/uL (0-1.0); Monocytes % (A) 7 %; Neutrophils # (A) 7.6 k/uL (1.3-7.7); Neutrophils % (A) 77 %; Platelet Count 137 k/uL (150-450); RBC 4.99 m/uL (4.30-5.90); RDW 12.7 % (11.5-15.5)
--- NOTE | 2020-01-21 22:03 | CONS ---
CONSULTATION PULMONARY/CRITICAL CARE CONSULTATION: January 21, 2020. REASON FOR CONSULTATION: ICU management. HISTORY OF PRESENT ILLNESS: This is a 59-year-old gentleman who does not currently see a physician. He has not seen a physician in some time. He is a heavy smoker and may be a heavy drinker. He comes in with complaints of right lower leg pain. Apparently he started having issues a couple days ago. Anyway, he was evaluated in the emergency room. Because his symptoms progressively got worse, he decided to come in to be evaluated. In September of 2018, he had a stent placement to his SFA. He was on Plavix at 1 time, but does not take it currently. In fact, he takes no medications at home. Anyway, he was evaluated by vascular surgery. They were concerned about an acute arterial obstruction in the right leg. The patient had an infusion catheter placed. He had an arterial sheath placed. This was done on the left side. He had a 2 mg bolus of tPA and 1 mg/hour infusion of tPA. He is also getting heparin 5000 units q.8 hours. The patient is getting saline at KVO. No supplemental oxygen. Again, the patient has not seen a doctor in years. HOME MEDICATIONS: None. ALLERGIES: None. MEDICAL HISTORY: A previous history of significant arterial disease in the right lower extremity, status post stent placement back in September 2018. He apparently has a history of atrial fibrillation. Does not take any medication for that. He does drink a lot and smoke a lot. SURGICAL HISTORY: Includes a tonsillectomy. SOCIAL HISTORY: Positive for current everyday tobacco use and alcohol abuse. Denies illicit drugs. FAMILY HISTORY: Positive for father with CVA and myocardial infarction and mother with history of diabetes, hypertension, varicose veins. REVIEW OF SYSTEMS: CONSTITUTIONAL negative. NEUROLOGIC negative. HEENT negative. CARDIOVASCULAR: Right leg pain. PULMONARY: Negative. GI negative. negative. RHEUMATOLOGIC negative. IMMUNOLOGIC negative. ENDOCRINOLOGIC negative. DERMATOLOGIC: Negative. It also came out after the fact that the patient does drink 12 beers a day. PHYSICAL EXAMINATION: VITAL SIGNS: Current vital signs are reviewed. Temperature 97.9. Heart rate 79, respiratory rate 16, blood pressure 177/106, mean 129, room air saturation 98%. GENERAL: Appears in no acute distress. HEENT: Examination is grossly unremarkable. NECK: Supple. Full range of motion. No adenopathy. Neck veins are flat. CARDIOVASCULAR examination was regular rhythm and rate. Heart rate 78. S1, S2 normal. No S3, S4, or murmur. LUNGS: Reveal clear breath sounds. No wheezes, rhonchi, or crackles. ABDOMEN: Soft. Bowel sounds are heard. EXTREMITIES: Extremities reveal discoloration and mottling to both lower extremities, right greater than left. I do feel a faint dorsalis pedis pulse on the right side. His right leg and right foot are cold. SKIN is without rash. NEUROLOGIC: Examination is brief but nonfocal. LABS: Reviewed. White count 11.1, hemoglobin 19.4, hematocrit 59.9, platelet count is 204,000. PT was 10.3, INR 1, PTT is 26, fibrinogen 498. Sodium 135, potassium 5.3, chloride 103, CO2 20, anion gap is 12. BUN and creatinine were 9 and 0.86. His lactic acid 3.2, likely related to leg ischemia. AST 187, ALT 84, albumin 4.8. The patient had a venous Doppler study that showed no DVT in the right leg. The patient had CT angiography which revealed moderate circumferential bladder wall thickening which could represent chronic bladder wall hypertrophy or cystitis, moderate- sized fatty direct left inguinal hernia, proximal right SFA occlusion and a proximal SFA occlusion which is new. The occlusion on the right is similar to the occlusion back in September 2018. ASSESSMENT: 1. Acute occlusion of the right SFA, status post insertion of infusion catheter and arterial sheath, a 2 mg bolus and tPA infusion, as well as IV heparin infusion. 2. History of heavy tobacco use, rule out chronic obstructive pulmonary disease. 3. History of chronic and heavy alcohol abuse, rule out alcohol withdrawal syndrome. 4. Noncompliant with medical care. 5. Previous history of right-sided SFA occlusion September 2018, at which time, the patient apparently was on Plavix, but has not been on Plavix recently. PLAN: We will follow. We added a nicotine patch. We placed him on the CIWA protocol. Additional recommendations and suggestions are forthcoming. Prognosis is guarded. He apparently will go back to the operating room tomorrow. We will continue to follow. MMODL / IJN: [id number] /
[2020-01-21] MEDS: NICOTINE 21MG/24HR PATCH TRANSDERM SCH (22:07)
[2020-01-21] MEDS: TEMAZEPAM 15 MG CAP PO PRN (23:20)
[2020-01-21] MEDS: HYDROcodone/APAP 5-325MG 1 EACH TAB PO PRN (23:20)
[2020-01-22] MEDS ORDERED: ALTEPLASE 10 MG in SODIUM CHLORIDE 0.9% 100 ML IA ONE ×2 (00:55→08:00)
[2020-01-22 01:49] LABS: Basophils # (A) 0.1 k/uL (0-0.2); Basophils % (A) 2 %; Eosinophils # (A) 0.2 k/uL (0-0.7); Eosinophils % (A) 2 %; HGB 15.3 gm/dL (13.0-17.5); Lymphocytes # (A) 1.3 k/uL (1.0-4.8); Lymphocytes % (A) 16 %; MCH 33.5 pg (25.0-35.0); MCHC 33.2 g/dL (31.0-37.0); MCV 100.8 fL (80.0-100.0); Mean Platelet Volume 8.3; Monocytes # (A) 0.6 k/uL (0-1.0); Monocytes % (A) 7 %; Neutrophils % (A) 72 %; Platelet Count 133 k/uL (150-450); RBC 4.56 m/uL (4.30-5.90); RDW 12.8 % (11.5-15.5); WBC 8.3 k/uL (3.8-10.6)
[2020-01-22 04:08] LABS: Basophils # (A) 0.2 k/uL (0-0.2); Basophils % (A) 2 %; Eosinophils # (A) 0.3 k/uL (0-0.7); Eosinophils % (A) 3 %; HCT 47.1 % (39.0-53.0); HGB 15.7 gm/dL (13.0-17.5); Lymphocytes # (A) 1.4 k/uL (1.0-4.8); Lymphocytes % (A) 18 %; MCH 33.5 pg (25.0-35.0); MCHC 33.4 g/dL (31.0-37.0); MCV 100.4 fL (80.0-100.0); Mean Platelet Volume 8.8; Monocytes # (A) 0.4 k/uL (0-1.0); Monocytes % (A) 5 %; Neutrophils # (A) 5.4 k/uL (1.3-7.7); Neutrophils % (A) 71 %; Platelet Count 134 k/uL (150-450); RBC 4.69 m/uL (4.30-5.90); RDW 12.8 % (11.5-15.5); WBC 7.6 k/uL (3.8-10.6)
[2020-01-22] MEDS: HEPARIN SOD,PORK IN 0.45% NACL 25,000 UNIT in 0.45% NACL 1 250ML.BAG IV SCH ×2 (04:19→07:18)
[2020-01-22 04:24] LABS: ALT 62 U/L (4-49); AST 116 U/L (17-59); African American GFR (CKD) >90 (>60 ml/min/1.73 sqM); Albumin 3.4 g/dL (3.5-5.0); Alkaline Phosphatase 67 U/L (38-126); Anion Gap 4 mmol/L; Blood Urea Nitrogen 18 mg/dL (9-20); Calcium 8.5 mg/dL (8.4-10.2); Carbon Dioxide 23 mmol/L (22-30); Chloride 103 mmol/L (98-107); Glucose 103 mg/dL (74-99); Non-African American GFR(CKD) >90 (>60 ml/min/1.73 sqM); Potassium 4.1 mmol/L (3.5-5.1); Sodium 130 mmol/L (137-145); Total Bilirubin 0.9 mg/dL (0.2-1.3)
[2020-01-22] MEDS: HYDROmorphone 1 MG/ML 1 ML SYRINGE IVP PRN ×2 (04:24→09:33)
[2020-01-22] MEDS: HYDROcodone/APAP 5-325MG 1 EACH TAB PO PRN ×3 (06:43→20:14)
[2020-01-22] MEDS: THIAMINE 100 MG TAB PO SCH ×2 (06:43→20:14)
[2020-01-22] MEDS: PANTOPRAZOLE 40 MG/10 ML VIAL IVP SCH (09:34)
[2020-01-22] MEDS: NICOTINE 21MG/24HR PATCH TRANSDERM SCH (09:34)
[2020-01-22] MEDS: amLODIPine 10 MG TAB PO SCH (09:34)
--- NOTE | 2020-01-22 10:16 | ECHOF ---
Referral Reason:abn ekg MEASUREMENTS -------- HEIGHT: 177.8 cm WEIGHT: 74.8 kg BP: 120/84 RVIDd: 3.1 cm (< 3.3) IVSd: 1.2 cm (0.6 - 1.1) LVIDd: 4.7 cm (3.9 - 5.3) LVPWd: 1.2 cm (0.6 - 1.1) IVSs: 1.9 cm LVIDs: 2.7 cm LVPWs: 1.6 cm LA Diam: 3.1 cm (2.7 - 3.8) Ao Diam: 3.4 cm (2.0 - 3.7) AV Cusp: 2.0 cm (1.5 - 2.6) MV EXCURSION: 17.896 mm (> 18.000) MV EF SLOPE: 69 mm/s (70 - 150) EPSS: 0.5 cm MV E Srinivasa: 0.41 m/s MV DecT: 350 ms MV A Srinivasa: 0.61 m/s MV E/A Ratio: 0.67 RAP: 5.00 mmHg RVSP: 21.42 mmHg FINDINGS -------- Sinus rhythm. This was a technically adequate study. The left ventricular size is normal. There is borderline concentric left ventricular hypertrophy. Overall left ventricular systolic function is mild-moderately impaired with, an EF between 40 - 45 % . Basal inferior LV wall motion is hypokinetic. Basal inferoseptal LV wall motion is hypokinetic . Mid inferior LV wall motion is hypokinetic. The right ventricle is normal in size. The left atrial size is normal. The right atrial size is normal. Interatrial and interventricular septum intact. There is mild aortic valve sclerosis. The mitral valve leaflets are mildly thickened. There is trace mitral regurgitation. The tricuspid valve appears structurally normal. Mild tricuspid regurgitation present. Right vent ricular systolic pressure is normal at < 35 mmHg. The pulmonic valve was not well visualized. There is no pulmonic regurgitation present. The aortic root size is normal. Normal inferior vena cava with normal inspiratory collapse consistent with estimated right atrial pre ssure of 5 mmHg. There is no pericardial effusion. CONCLUSIONS -------- 1. There is borderline concentric left ventricular hypertrophy. 2. Overall left ventricular systolic function is mild-moderately impaired with, an EF between 40 - 45 %. 3. Basal inferior LV wall motion is hypokinetic. 4. Basal inferoseptal LV wall motion is hypokinetic. 5. Mid inferior LV wall motion is hypokinetic. 6. The left atrial size is normal. 7. There is mild aortic valve sclerosis. 8. There is trace mitral regurgitation. 9. Mild tricuspid regurgitation present. 10. There is no pericardial effusion. STEAM HOIST OPERATOR: Jenise Herrera RDCS
--- NOTE | 2020-01-22 11:00 | P.CRDCN ---
History of Present Illness Consult date: 01/22/20 Chief complaint: Right lower leg pain History of present illness: This is a 59-year-old gentleman with history of nicotine dependence, E [place] abuse, noncompliance, who initially presented to the hospital with complaints of increased pain and decreased sensation and movement of his right lower extremity. According to the patient he has been experiencing pain in his bilateral lower extremities, right greater than the left for the past one to 2 months especially with walking. The past 2-3 days prior to his admission to the hospital, he had decreased sensation and movement at the ankle and toes of his right foot. He does have a history of peripheral arterial disease, had a right superficial femoral artery occlusion with reconstitution at the popliteal artery and three-vessel runoff. At that time he underwent a selective right lower extremity angiogram with thrombolytics with angioplasty and stent placement. He was prescribed aspirin and Plavix on discharge, but was not taking those medications at home. Patient was found on this admission to have a right proximal SFA occlusion/occlusion similar to September 2018. Distal SFA and proximal popliteal artery stent is visualized and not her pacer site. There is minimal reconstitution of contrast in the mid popliteal artery but with subsequent coronal and no runoff seen distal to that. There is left proximal SFA occlusion on this side as well, new as compared with September of last year. Patient was taken to the lab, underwent right lower extremity angiogram, initiation of thrombolytics. The patient continues to be on all to place and IV heparin. His EKG shows normal sinus rhythm with frequent PVCs, right atrial enlargement, right bundle branch block pattern. Chest x-ray did not show any active cardiopulmonary disease. Blood pressure 127/80 with a heart rate in the 60s, 93% on room air. White blood cell count 7.6, hemoglobin 15.7, platelet count 134. Sodium 1:30, potassium 4.1, BUN 18, creatinine 0.8. Plasma lactic acid on admission 2.4. AST 116 ALT 62, alk phos 67. At the time of our examination in the intensive care unit, patient does state that the pain in his right lower extremity is significant improved from arrival here. He is scheduled to go back to the vascular lab today. Past Medical History Past Medical History: No Reported History, Atrial Fibrillation Additional Past Medical History / Comment(s): alcoholism and smoker History of Any Multi-Drug Resistant Organisms: None Reported Past Surgical History: Tonsillectomy Additional Past Surgical History / Comment(s): stent to rt leg Past Anesthesia/Blood Transfusion Reactions: No Reported Reaction Smoking Status: Current every day smoker - Past Family History Mother Family Medical History: Diabetes Mellitus, Hypertension Additional Family Medical History / Comment(s): Family history of varicose veins. Father Family Medical History: CVA/TIA, Myocardial Infarction (ID) Medications and Allergies Home Medications Medication Instructions Recorded Confirmed Type No Known Home Medications 01/21/20 01/21/20 History Allergies Allergy/AdvReac Type Severity Reaction Status Date / Time No Known Allergies Allergy Verified 01/21/20 09:00 Physical Exam Vitals: Vital Signs Temp Pulse Pulse Resp BP BP Pulse Ox 01/22/20 07:00 63 18 140/92 94 L 01/22/20 06:00 67 17 120/84 93 L 01/22/20 05:00 65 18 130/86 93 L 01/22/20 04:00 98.3 F 65 14 129/79 93 L 01/22/20 03:00 71 16 120/69 93 L 01/22/20 02:00 62 20 111/73 92 L 01/22/20 01:00 75 17 98/84 93 L 01/22/20 00:00 98.7 F 75 17 140/80 94 L 01/21/20 23:00 81 15 150/80 96 01/21/20 22:00 77 20 154/90 93 L 01/21/20 21:00 18 141/88 93 L 01/21/20 20:30 67 18 138/95 93 L 01/21/20 20:00 98.4 F 72 18 147/85 94 L 01/21/20 19:30 76 18 128/89 94 L 01/21/20 19:00 74 21 138/70 94 L 01/21/20 18:45 23 138/70 94 L 01/21/20 18:30 79 22 134/102 94 L 01/21/20 18:15 81 22 134/102 92 L 01/21/20 18:00 90 20 139/85 93 L 01/21/20 17:45 92 36 H 139/85 92 L 01/21/20 17:30 81 21 134/84 94 L 01/21/20 17:15 78 32 H 134/84 95 01/21/20 17:00 80 25 H 123/92 93 L 01/21/20 16:45 94 17 123/92 94 L 01/21/20 16:30 93 13 177/123 95 01/21/20 16:15 87 20 177/123 95 01/21/20 16:00 97.1 F L 85 20 180/103 97 01/21/20 15:45 73 15 180/103 96 01/21/20 15:30 70 19 96 01/21/20 15:16 25 H 97 01/21/20 14:59 72 16 184/84 95 01/21/20 14:45 74 16 174/85 95 01/21/20 14:30 70 16 180/93 95 01/21/20 14:15 70 16 169/85 95 01/21/20 14:00 72 16 182/88 95 01/21/20 13:44 72 16 195/96 95 01/21/20 13:29 79 16 184/90 95 01/21/20 13:14 80 16 132/82 95 01/21/20 13:01 76 16 176/108 95 01/21/20 11:45 82 19 177/106 93 L 01/21/20 11:32 98.1 F 78 16 177/106 98 01/21/20 11:30 83 15 175/122 01/21/20 11:15 91 16 175/122 01/21/20 11:00 78 23 183/114 01/21/20 10:50 81 16 183/114 99 01/21/20 10:45 79 23 184/131 01/21/20 10:30 85 11 L 01/21/20 10:15 81 22 01/21/20 10:00 177/114 01/21/20 09:45 86 18 177/114 01/21/20 09:30 86 21 187/123 01/21/20 09:15 89 19 187/123 01/21/20 09:00 95 12 200/130 97 Intake and Output 01/21/20 01/22/20 01/22/20 22:59 06:59 14:59 Intake Total 745 280 35 Output Total 1450 400 Balance -705 -120 35 Intake: IV 265 280 35 0.9 NACL 150 160 20 Heparin 35 40 5 alteplase 80 80 10 Oral 480 Output: Urine 1200 400 Post Void Residual 250 Other: Voiding Method Urinal Urinal Weight 74.843 kg PHYSICAL EXAMINATION: GENERAL: 59-year-old gentleman in no acute distress at the time of my examination HEENT: Head is atraumatic, normocephalic. Pupils equal, round. Sclera anicteric. Conjunctiva are clear. Mucous membranes of the mouth are moist. Neck is supple. There is no elevated jugular venous pressure. No carotid bruit is heard. HEART EXAMINATION: Heart S1, S2 normal. No murmur or gallop heard. CHEST EXAMINATION: Lungs are clear to auscultation and precussion. No chest wall tenderness is noted on palpation or with deep breathing. ABDOMEN: Soft, nontender. Bowel sounds are heard. No organomegaly noted. EXTREMITIES: Doppler pulse to the right lower extremity, 1+ pulse to the left lower extremity. 2+ peripheral pulses with no evidence of peripheral edema and no calf tenderness noted. NEUROLOGIC patient is awake, alert and oriented 3 . Results 01/22/20 03:56 01/22/20 03:56 Cardiac Enzymes 01/21/20 01/22/20 Range/Units 09:02 03:56 AST 187 H 116 H (17-59) U/L Coagulation 01/21/20 01/21/20 01/22/20 Range/Units 09:02 16:45 03:56 PT 10.3 9.8 (9.0-12.0) sec APTT 26.0 50.8 H 29.3 (22.0-30.0) sec CBC 01/21/20 01/21/20 01/21/20 Range/Units 09:02 16:45 21:23 WBC 11.1 H 9.0 10.0 (3.8-10.6) k/uL RBC 5.89 5.28 4.99 (4.30-5.90) m/uL Hgb 19.4 H* 17.8 H 16.4 (13.0-17.5) gm/dL Hct 59.9 H* 53.5 H 50.0 (39.0-53.0) % Plt Count 204 172 137 L (150-450) k/uL 01/22/20 01/22/20 Range/Units 01:35 03:56 WBC 8.3 7.6 (3.8-10.6) k/uL RBC 4.56 4.69 (4.30-5.90) m/uL Hgb 15.3 15.7 (13.0-17.5) gm/dL Hct 46.0 47.1 (39.0-53.0) % Plt Count 133 L 134 L (150-450) k/uL Comprehensive Metabolic Panel 01/21/20 01/21/20 01/22/20 Range/Units 09:02 16:45 03:56 Sodium 135 L 130 L (137-145) mmol/L Potassium 5.3 H 4.1 (3.5-5.1) mmol/L Chloride 103 103 (98-107) mmol/L Carbon Dioxide 20 L 23 (22-30) mmol/L BUN 9 11 18 (9-20) mg/dL Creatinine 0.86 0.88 0.86 (0.66-1.25) mg/dL Glucose 118 H 103 H (74-99) mg/dL Calcium 9.7 8.5 (8.4-10.2) mg/dL AST 187 H 116 H (17-59) U/L ALT 84 H 62 H (4-49) U/L Alkaline Phosphatase 95 67 (38-126) U/L Total Protein 8.3 H 6.0 L (6.3-8.2) g/dL Albumin 4.8 3.4 L (3.5-5.0) g/dL Current Medications Generic Name Dose Route Start Last Admin Trade Name Freq PRN Reason Stop Dose Admin Hydrocodone Bitart/Acetaminophen 1 each 01/21/20 18:49 01/22/20 06:43 Hydrocodone/Apap 5-325mg 1 Each Tab PO 1 each Q6HR PRN Administration Pain Amlodipine Besylate 10 mg 01/21/20 15:00 01/21/20 15:37 Amlodipine 10 Mg Tab PO Not Given DAILY IVETTE Clonidine 0.1 mg 01/21/20 18:49 01/21/20 22:10 Clonidine Hcl 0.1 Mg Tab PO 0.1 mg Q4HR PRN Administration Hypertension Folic Acid 1 mg 01/22/20 12:00 Folic Acid 1 Mg Tab PO DAILY@1200 IVETTE Heparin Sodium (Porcine) 0 unit 01/21/20 09:20 Heparin Sodium,Porcine 5,000 Unit/Ml 1 Ml Vial IV PER PROTOCOL PRN Low PTT Protocol Hydromorphone HCl 1 mg 01/21/20 10:53 01/22/20 04:24 Hydromorphone 1 Mg/Ml 1 Ml Syringe IVP 1 mg Q3HR PRN Administration Severe Pain Hydromorphone HCl 0.5 mg 01/21/20 10:53 Hydromorphone 0.5 Mg/0.5 Ml Syringe IVP Q3HR PRN Moderate Pain Alteplase, Recombinant 10 mg/ 100 mls @ 10 mls/hr 01/22/20 00:55 01/22/20 01:48 Sodium Chloride IA 01/22/20 10:54 1 mg/hr .Q10H ONE 10 mls/hr Administration Protocol 1 MG/HR Heparin Sodium/Sodium Chloride 250 mls @ 5 mls/hr 01/22/20 07:15 01/22/20 07:18 25,000 unit/ Sodium Chloride IV 5 mls/hr .Q24H IVETTE Administration Alteplase, Recombinant 10 mg/ 100 mls @ 10 mls/hr 01/22/20 08:00 Sodium Chloride IA 01/22/20 17:59 .Q10H ONE Protocol 1 MG/HR Lorazepam 1 mg 01/21/20 15:31 Lorazepam 2 Mg/Ml Inj IV Q2HR PRN CIWA 8 or 9 Lorazepam 1 mg 01/21/20 15:31 Lorazepam 2 Mg/Ml Inj IV Q1HR PRN CIWA 10 to 15 Lorazepam 2 mg 01/21/20 15:31 Lorazepam 2 Mg/Ml Inj IV 01/23/20 15:31 Q10M PRN CIWA 16 or higher Lorazepam 2 mg 01/21/20 15:31 Lorazepam 2 Mg/Ml Inj IV Q6HR PRN Seizures Miscellaneous Information 1 each 01/21/20 08:59 Rx Info: Iv Contrast Was Given 1 Each Misc MISCELLANE 01/23/20 09:00 DAILY PRN Per Protocol Naloxone HCl 0.2 mg 01/21/20 10:53 Naloxone 0.4 Mg/Ml 1 Ml Vial IV Q2M PRN Opioid Reversal Nicotine 1 patch 01/21/20 21:30 01/21/20 22:07 Nicotine 21mg/24hr Patch TRANSDERM 1 patch DAILY IVETTE Administration Pantoprazole Sodium 40 mg 01/22/20 09:00 Pantoprazole 40 Mg/10 Ml Vial IVP DAILY IVETTE Temazepam 15 mg 01/21/20 18:49 01/21/20 23:20 Temazepam 15 Mg Cap PO 15 mg HS PRN Administration Insomnia Thiamine HCl 100 mg 01/21/20 17:30 01/22/20 06:43 Thiamine 100 Mg Tab PO 100 mg BID-W/MEALS IVETTE Administration Intake and Output 01/21/20 01/22/20 01/22/20 22:59 06:59 14:59 Intake Total 745 280 35 Output Total 1450 400 Balance -705 -120 35 Intake: IV 265 280 35 0.9 NACL 150 160 20 Heparin 35 40 5 alteplase 80 80 10 Oral 480 Output: Urine 1200 400 Post Void Residual 250 Other: Voiding Method Urinal Urinal Weight 74.843 kg 01/22/20 03:56 01/22/20 03:56 EKG Interpretations (text) EKG shows a normal sinus rhythm with a right bundle branch block pattern and frequent PVCs. Assessment and Plan Plan: Assessment and Plan: 1. Right lower extremity pain, acute limb ischemia of the right lower extremity, status post angiogram and initiation of thrombolytics 2. PAD with History of previous right lower extremity stenting 3. EtOH abuse 4. Questionable prior history of paroxysmal atrial fibrillation 5. Tobacco abuse 6. Frequent PVCs 7. Hypertension Plan We will obtain an echocardiogram with Doppler study. We will also start the patient on a beta twan, URIEL inhibitor, statin, obtain magnesium level. As an outpatient, down the road, patient will require further evaluation to rule out underlying coronary artery disease. We will continue to follow along with you. DNP note has been reviewed, I agree with a documented findings and plan of care. Patient was seen and examined.
[2020-01-22] MEDS ORDERED: IV FLUID CONTINUATION 1,000 ML IV ONE (11:05)
[2020-01-22] MEDS: FOLIC ACID 1 MG TAB PO SCH (11:09)
[2020-01-22] MEDS: fentaNYL (PF) 50 MCG/ML 2 ML AMP IVP ONE ×2 (11:14→11:53)
[2020-01-22] MEDS ORDERED: MIDAZOLAM 2 MG/2 ML VIAL IVP ONE (11:14)
[2020-01-22] MEDS ORDERED: LIDOCAINE 1% INJ 10MG/ML (20 ML MDV) SQ ONE (11:18)
--- NOTE | 2020-01-22 11:23 | PN ---
PROGRESS NOTE PULMONARY/CRITICAL CARE PROGRESS NOTE: DATE OF SERVICE: 01/22/2020 This is a 59-year-old gentleman who we saw yesterday in consultation. The patient typically does not see a physician. He is a heavy smoker and drinker. Anyway, yesterday, he was discovered to have an acute occlusion of his right SFA, and he had he had insertion of infusion catheter and arterial, a 2 mg bolus of tPA and tPA infusion. Anyway, the patient is doing better. The patient now has a dorsalis pedis pulse noted in his right foot. The patient does have a history of heavy tobacco use and likely has underlying COPD. He also has a history of chronic and heavy alcohol abuse, drinking 12 beers a day. He has been noncompliant with medical care and had a previous occlusion of the right-sided SVA, in September 2018 and he was supposed to be on Plavix, which he is not on. Currently, he is resting comfortably. He is getting no supplemental oxygen. His tPA infusion is running at 1 mg an hour. Current vital signs are stable. His temperature is 98.3, heart rate is 63, respiratory rate 18, blood pressure 140/92 mean 108, room air saturation is 94%. Appears in no acute distress. HEENT: Examination is grossly unremarkable. NECK: Supple, full range of motion. No adenopathy or thyromegaly. Neck veins are flat. CARDIOVASCULAR: Examination reveals regular rhythm and rate. Heart rate 63 beats per minute. S1, S2 normal. LUNGS: Reveal mostly clear breath sounds. No wheezes, rhonchi, or significant crackles. ABDOMEN: Soft, bowel sounds are heard. EXTREMITIES: A bit warmer. They are bit mottled still. There is a dorsalis pedis pulse on the right side. Only a Doppler pulse on the left side. No cyanosis. No clubbing. SKIN: Without rash. NEUROLOGIC: Examination is nonfocal. LABS: Reviewed. White count 7.6, hemoglobin 15.7, hematocrit 47.1, platelet count 134,000. PTT is 29.3, fibrinogen 335. Sodium 130, potassium 4.1, chloride is 103, CO2 is 23, anion gap is 4. BUN and creatinine were 18 and 0.86. The rest of the labs are reviewed. Bilirubin was 0.9, AST 116, ALT 62, albumin 3.4. Microbiology is negative. No recent chest x-rays to report. His chest x-ray from yesterday shows no acute disease. MEDICATIONS: Reviewed. He is currently on Lipitor, clonidine, folic acid, heparin infusion, which I believe is on hold for going back to the catheterization lab today, [place] Dilaudid, Ativan, Cozaar, metoprolol, Narcan, nicotine patch, Protonix, and Risperdal. ASSESSMENT: 1. Postoperative day #1, status post insertion of infusion catheter and arterial sheath, with tPA bolus and tPA infusion, for acute occlusion of the right SFA. 2. History of heavy tobacco use. Rule out chronic obstructive pulmonary disease. 3. History of chronic and heavy alcohol abuse, rule out alcohol withdrawal syndrome. 4. Noncompliant with medical care. 5. Prior history of right-sided SFA occlusion, September 2018, at which time the patient was on Plavix. PLAN: Currently, the patient is doing reasonably well. We put him on the CIWA protocol. In addition, the patient had a nicotine patch added. He will be going back to the catheterization lab today. Heparin has been switched down. He remains on tPA. No additional recommendations are made. Prognosis is guarded. MMODL / IJN: [id number] /
--- NOTE | 2020-01-22 12:17 | P.OP ---
Description of Procedure: Preoperative diagnosis: [Acute right lower extremity ischemia, Previously initiated right lower extremity thrombolytics medical noncompliance, tobacco abuse] Postoperative diagnosis: Same Procedure: [#1 angiogram via existing catheter #2 right lower extremity angiogram #3 right distal superficial femoral artery percutaneous transluminal balloon angioplasty with 6 x 80 balloon #4 right distal superficial femoral artery percutaneous stent with 6 x 100 Everflex #5 left iliofemoral angiogram #6 moderate conscious sedation 30 minutes] Surgeon: Karolina Nuno D.O. EBL: [Less than 10 mL] IV fluids: [See records] Urine output: [None measured] Drains: [None] Complications: [None immediately apparent] Condition: [Stable to ICU] Operative indication and findings: [The patient is a 59-year-old male in today for follow-up angiogram after initiation of thrombolytics for acute right lower extremity ischemia. He did develop a small pericatheter hematoma for which a pressure dressing was placed. His labs have remained adequate. Risks and benefits were discussed. He seemingly understood. He did develop a palpable pedal pulse after thrombolytics] Procedure in detail: [Patient was taken to the special suite and placed in supine position. The left groin and previously placed catheter were prepped and draped in usual sterile fashion. A procedural timeout was performed, all parties were in agreement. An 018 guidewire was placed through the previously placed catheter and the catheter was removed. An angiogram was performed. There was significant improvement of the blood flow. There continues to be diffuse disease throughout the superficial femoral artery with a area of significant 80% stenosis at the distal superficial femoral artery. A 6 x 80 percutaneous transluminal balloon angioplasty was performed. There was some improvement of the stenosis and a 6 x 100 salvage extending stent was placed and postdilated. Angiogram showed significant improvement of the area of stenosis. The sheath was withdrawn and an iliofemoral angiogram was performed revealing no significant stenosis. There was reconfirmed occlusion of the left superficial femoral artery. The long sheath was then exchanged for a short 6- [place] sheath and a closure device is utilized. A pressure dressing was placed. The patient had palpable pedal pulses following the procedure on the right. He maintains his same previous sensation and movement of the left lower extremity although delayed capillary refill and weakly monophasic signals, all as previous]
[2020-01-22] MEDS: METOPROLOL TARTRATE 25 MG TAB PO SCH ×2 (12:33→20:14)
[2020-01-22] MEDS: LOSARTAN 25 MG TAB PO SCH (12:34)
--- NOTE | 2020-01-22 14:03 | IR ---
Fluoroscopy HISTORY: Pain in right leg 5.5 minutes fluoroscopy time supplied to the referring clinician. 382 intraoperative C-arm images do cument the procedure. See dictated report from vascular surgery.
[2020-01-22 14:15] LABS: HCT 51.2 % (39.0-53.0); HGB 16.6 gm/dL (13.0-17.5); MCH 33.2 pg (25.0-35.0); MCHC 32.4 g/dL (31.0-37.0); MCV 102.5 fL (80.0-100.0); Macrocytosis Slight; Mean Platelet Volume 8.3; Platelet Count 143 k/uL (150-450); RBC 4.99 m/uL (4.30-5.90); RDW 12.9 % (11.5-15.5); WBC 7.1 k/uL (3.8-10.6)
[2020-01-22] MEDS ORDERED: NICOTINE 21MG/24HR PATCH TRANSDERM SCH ×2 (15:28→21:19)
--- NOTE | 2020-01-22 17:20 | PN ---
PROGRESS NOTE DATE OF SERVICE: 01/22/2020 This is a 59-year-old gentleman admitted with right leg pain and peripheral significant vascular disease. The patient received tPA subsequently by Dr. Nuno today, performed angiogram and as well as SFA, PTB and stent placement by Dr. Nuno and the patient will be closely monitored. No chest pain. No palpitations. No fever. PAST MEDICAL HISTORY: Reviewed. REVIEW OF SYSTEMS: CARDIOVASCULAR: No angina. RESPIRATION: As mentioned earlier. GI: As mentioned earlier. : No dysuria. NERVOUS SYSTEM: No numbness or weakness. CURRENT MEDICATIONS: Reviewed and include [place]. Lipitor, Catapres, folic acid, heparin, Dilaudid, Ativan, Cozaar, Lopressor. Doses are reviewed. PHYSICAL EXAMINATION: Alert and oriented x3. Pulse is 58, blood pressure 190/60, respirations 16, temperature normal, pulse ox 94% on HEENT: Conjunctivae normal. NECK: No jugular venous distension. CARDIOVASCULAR SYSTEM: S1, S2, muffled. RESPIRATORY SYSTEM: Breath sounds diminished at the bases, no rhonchi, no crackles. ABDOMEN: Soft, no tender. LEGS: No edema, no swelling. NERVOUS SYSTEM: No focal deficits. LABS: WBC 7.0, otherwise sodium is 130, AST 62. ASSESSMENT: 1. Peripheral vascular disease with SFA occlusion of the right side, status post tPA and as well as PTB and stent placement. 2. History of peripheral vascular disease and stenting previously. 3. Polycythemia. 4. Hypoxia. 5. Increased WBC. 6. Hyponatremia. 7. Hyperkalemia. 8. Elevated lactic acid. 9. Increased AST, ALT, possibly alcoholic hepatitis. 10.History of ETOH. 11.History atrial fibrillation chronic. 12.History of nicotine dependence. 13.History of anxiety. 14.History of noncompliance. 15.Congestive heart failure with chronic systolic dysfunction, ejection fraction 40% to 50%. 16.FULL CODE. RECOMMENDATION: Recommend to continue current management and symptomatic treatment. Otherwise at this time, continue with the antiplatelet agents. Continue the rest of medications. Repeat labs. The patient has some hypoxia. Closely follow with multiple consultants. Further recommendations to follow. Incentive spirometry and also recommend a chest x- ray after procedure. MMODL / IJN: [id number] / [facility]
[2020-01-22] MEDS ORDERED: ATORVASTATIN 40 MG TAB PO SCH (21:00)
[2020-01-23] MEDS: TEMAZEPAM 15 MG CAP PO PRN (02:12)
[2020-01-23] MEDS: THIAMINE 100 MG TAB PO SCH (06:12)
--- NOTE | 2020-01-23 07:00 | XR ---
EXAMINATION TYPE: XR chest 1V portable DATE OF EXAM: 01/23/2020 CLINICAL HISTORY: Difficulty breathing and CHF progress study. TECHNIQUE: Single AP portable upright view of the chest is obtained. COMPARISON: Chest x-ray from 2 days earlier FINDINGS: New patchy lateral right basilar opacity. Left lung remains clear. Cardiac silhouette size slightly more prominent but remains within normal limits with atherosclerotic change aortic knob. Sl ight scoliotic curvature. IMPRESSION: New patchy right basilar atelectasis and/or developing infiltrate.
[2020-01-23] MEDS: HEPARIN SOD,PORK IN 0.45% NACL 25,000 UNIT in 0.45% NACL 1 250ML.BAG IV SCH (09:03)
[2020-01-23] MEDS: NICOTINE 21MG/24HR PATCH TRANSDERM SCH (09:21)
[2020-01-23] MEDS: LOSARTAN 25 MG TAB PO SCH (09:21)
[2020-01-23] MEDS: PANTOPRAZOLE 40 MG/10 ML VIAL IVP SCH (09:21)
[2020-01-23] MEDS: FOLIC ACID 1 MG TAB PO SCH (09:21)
[2020-01-23] MEDS: METOPROLOL TARTRATE 25 MG TAB PO SCH (09:21)
[2020-01-23] MEDS: HYDROcodone/APAP 5-325MG 1 EACH TAB PO PRN (09:28)
[2020-01-23 11:04] VITALS: RESP 20; TEMP 98.1
[2020-01-23 11:11] LABS: ALT 53 U/L (4-49); AST 104 U/L (17-59); African American GFR (CKD) >90 (>60 ml/min/1.73 sqM); Albumin 3.5 g/dL (3.5-5.0); Alkaline Phosphatase 61 U/L (38-126); Anion Gap 1 mmol/L; Blood Urea Nitrogen 12 mg/dL (9-20); Calcium 8.7 mg/dL (8.4-10.2); Carbon Dioxide 30 mmol/L (22-30); Chloride 102 mmol/L (98-107); Glucose 77 mg/dL (74-99); Magnesium 1.9 mg/dL (1.6-2.3); Non-African American GFR(CKD) >90 (>60 ml/min/1.73 sqM); Potassium 4.4 mmol/L (3.5-5.1); Sodium 133 mmol/L (137-145); Total Bilirubin 0.8 mg/dL (0.2-1.3); Total Protein 6.1 g/dL (6.3-8.2)
[2020-01-23 11:12] LABS: Basophils # (A) 0.1 k/uL (0-0.2); Basophils % (A) 1 %; Eosinophils # (A) 0.2 k/uL (0-0.7); Eosinophils % (A) 2 %; HCT 45.7 % (39.0-53.0); HGB 14.9 gm/dL (13.0-17.5); Lymphocytes # (A) 1.1 k/uL (1.0-4.8); Lymphocytes % (A) 13 %; MCH 32.9 pg (25.0-35.0); MCHC 32.5 g/dL (31.0-37.0); MCV 101.2 fL (80.0-100.0); Mean Platelet Volume 8.4; Monocytes # (A) 0.6 k/uL (0-1.0); Monocytes % (A) 8 %; Neutrophils # (A) 6.3 k/uL (1.3-7.7); Neutrophils % (A) 76 %; Platelet Count 141 k/uL (150-450); RBC 4.52 m/uL (4.30-5.90); RDW 12.7 % (11.5-15.5); WBC 8.3 k/uL (3.8-10.6)
--- NOTE | 2020-01-23 12:18 | P.PN ---
Subjective Progress Note Date: 01/23/20 Principal diagnosis: Acute right lower extremity ischemia She was seen and examined lying in bed. He is status postop #1 repeat angiogram with angioplasty and stent placement. The patient states he had no acute changes through the night. No bleeding from the left access site. He denies any pain. States bilateral lower extremities feel better. He is able to move the right lower extremity without pain. He is tolerating a regular diet. Objective - Vital Signs Vital signs: Vital Signs Temp 97.6 F 01/23/20 03:25 Pulse 65 01/23/20 03:25 Resp 16 01/23/20 03:25 BP 149/69 01/23/20 03:25 Pulse Ox 96 01/23/20 03:25 Intake & Output 01/22/20 01/23/20 01/23/20 18:59 06:59 18:59 Intake Total 285 Output Total 1000 Balance -715 Weight 72.6 kg Intake: IV 85 0.9 NACL 20 Heparin 5 alteplase 10 Oral 200 Output: Urine 1000 Other: Voiding Method Urinal # Voids 1 - Exam General appearance: The patient is alert, oriented, in no acute distress. HET: Head is normocephalic and atraumatic. Neck: Supple without lymphadenopathy. Heart: S1 S2. Regular rate and rhythm. Lungs: No crackles or wheezes are heard. Abdomen: Soft, nontender, nondistended with bowel sounds. No peritoneal signs. No palpable organomegaly or masses. Extremities: Bilateral below femoral pulses. Left groin with ecchymosis, approximately quarter size hematoma noted. Left inguinal hernia soft and reducible. Will sensation to bilateral lower extremity, no change with left lower extremity delay capillary refill left monophasic signal. Neurological: No focal deficits. Strength and sensation are grossly intact. - Labs CBC & Chem 7: 01/23/20 10:02 01/23/20 10:02 Labs: Abnormal Lab Results - Last 24 Hours (Table) 01/22/20 Range/Units 13:59 MCV 102.5 H (80.0-100.0) fL Plt Count 143 L (150-450) k/uL Assessment and Plan Assessment: 1. Status post right lower extremity thrombolytics followed by angiogram with right distal superficial femoral artery angioplasty and stenting. 2. Acute right lower extremity ischemia 3. Left groin hematoma 4. Bilateral proximal superficial femoral artery occlusion 5. Peripheral arterial disease, status post history of right lower extremity angiogram with thrombolytics, angioplasty and stent (09/2018) 6. Bilateral lower extremity venous insufficiency with varicosities 7. Tobacco abuse 8. Alcohol abuse 9. Left inguinal hernia, nonincarcerated Plan: 1. Status post right lower extremity thrombolytics, angioplasty with stent placement. 2. CT angiogram abdominal aorta with runoff ordered and reviewed 3. Heparin drip discontinued 4. Heart Healthy diet 5. Increase ambulation 6. Smoking cessation 7. Alcohol cessation 8. Start on low dose aspirin and Plavix, continue atorvastatin 40 mg nightly 9. Patient may be discharged home from a vascular surgical standpoint, follow- up with Dr. Nuno in one week The above dictated assessment and findings were discussed with Dr. Nuno. The impression and plan of care have been directed as dictated.
--- NOTE | 2020-01-23 13:00 | P.PN ---
Subjective This is a pleasant 59-year-old male past medical history significant for chronic nicotine dependence, alcohol abuse and noncompliance. He underwent right superficial femoral artery reconstitution at the popliteal artery and three-vessel runoff with thrombolytics and stent placement per Dr. Nuno. He is seen and examined resting comfortably laying flat in bed in no acute distress. He has no symptoms of chest pain, shortness of breath, dizziness or palpitations. Blood pressure 149/69 heart rate 65 afebrile maintaining oxygen saturation on room air. Currently maintained on atorvastatin 40 mg daily, losartan 25 mg daily and metoprolol 25 mg twice a day. GENERAL: Well-appearing, well-nourished and in no acute distress. NECK: Supple without JVD or thyromegaly. LUNGS: Breath sounds clear to auscultation bilaterally. Respiration equal and unlabored. No wheezes, rales or rhonchi. HEART: Regular rate and rhythm without murmurs, rubs or gallops. S1 and S2 heard. EXTREMITIES: Normal range of motion, no edema. No clubbing or cyanosis. Strong pulse to the right lower extremity, absent pulse on the left. ASSESSMENT Acute limb ischemia, right lower extremity s/p thrombolytics and stent placement Peripheral vascular disease Hypertension Ischemic cardiomyopathy Chronic systolic heart failure Medical non-compliance Chronic nicotine dependence Alcohol abuse PLAN Continue current medical regimen. Recommend daily aspirin when ok with vascular surgery. Will require further outpatient cardiac work-up in the form of stress test and possible cardiac catheterization. Recommend alcohol and tobacco cessation. We will follow along as needed, please call with further questions or concerns. Nurse Practitioner note has been reviewed, I agree with a documented findings and plan of care. Patient was seen and examined. Objective - Vital Signs Vital signs: Vital Signs Temp 97.6 F 01/23/20 03:25 Pulse 65 01/23/20 03:25 Resp 16 01/23/20 03:25 BP 149/69 01/23/20 03:25 Pulse Ox 96 01/23/20 03:25 Intake & Output 01/22/20 01/23/20 01/23/20 18:59 06:59 18:59 Intake Total 285 Output Total 1000 Balance -715 Weight 72.6 kg Intake: IV 85 0.9 NACL 20 Heparin 5 alteplase 10 Oral 200 Output: Urine 1000 Other: Voiding Method Urinal # Voids 1 - Labs CBC & Chem 7: 01/23/20 10:02 01/23/20 10:02 Labs: Abnormal Lab Results - Last 24 Hours (Table) 01/22/20 Range/Units 13:59 MCV 102.5 H (80.0-100.0) fL Plt Count 143 L (150-450) k/uL
[2020-01-23 13:38] VITALS: BP 122/78; PULSE 63
--- NOTE | 2020-01-23 14:42 | P.PN ---
Subjective Progress Note Date: 01/23/20 Principal diagnosis: Acute right lower extremity ischemia, cold foot This 59-year-old white male patient who is admitted to the hospital on 2019 with complaints of right lower leg pain, symptoms were progressively worsening, patient has known history of severe peripheral vascular disease with previous angiogram and stent placement for right superficial femoral artery oc clusion. Patient was discharged home on aspirin and Plavix instructions on follow-up with vascular surgery. However patient did not remain anemia does medications or follow-up with vascular surgery. He continues to smoke. Venous Doppler of the right lower extremity was negative for DVT, CT angiogram of the abdominal aorta with runoff showed moderate circumferential bladder wall thickening that could represent chronic bladder wall hypertrophy or cystitis, moderate-sized 80 direct left inguinal hernia, right proximal SFA occlusion by a third similar 2 10/01/2018, distal SFA and proximal popliteal artery stent was visualized and was non-opacified. Patient received TPA infusion through a left femoral sheath, on 01/22/2020 patient was taken back to the [facility] for follow-up angiogram after initiation of thrombolytics for acute right lower extremity ischemia, and patient had angioplasty and stent placement, with significant improvement of right pedal pulse following the intervention, yesterday she was transferred out of intensive care unit, he has remained stable overnight, he is resting comfortably in bed, in no acute distress, denies any shortness of breath, no bleeding from the left access site, small hematoma, which is soft, left pedal pulse is weak, and right pedal pulse is palpable, no complaints of pain, both feet are warm. Today's chest x-ray has been reviewed showing no pa tchy right basilar atelectasis. No cough or congestion, and a pulse ox is 97%, afebrile. Patient is anticipated to be discharged home today. Objective - Vital Signs Vital signs: Vital Signs Temp 98.1 F 01/23/20 11:03 Pulse 63 01/23/20 13:37 Resp 20 01/23/20 13:37 BP 122/78 01/23/20 13:37 Pulse Ox 97 01/23/20 13:37 Intake & Output 01/22/20 01/23/20 01/23/20 18:59 06:59 18:59 Intake Total 285 660 Output Total 1000 Balance -715 660 Weight 72.6 kg Intake: IV 85 0.9 NACL 20 Heparin 5 alteplase 10 Oral 200 660 Output: Urine 1000 Other: Voiding Method Urinal # Voids 1 2 - Exam GENERAL EXAM: Alert, very pleasant, 59-year-old white male, on room air with a pulse ox 97% comfortable in no apparent distress. HEAD: Normocephalic/atraumatic. EYES: Normal reaction of pupils, equal size. Conjunctiva pink, sclera white. NOSE: Clear with pink turbinates. THROAT: No erythema or exudates. NECK: No masses, no JVD, no thyroid enlargement, no adenopathy. CHEST: No chest wall deformity. Symmetrical expansion. LUNGS: Equal air entry with no crackles, wheeze, rhonchi or dullness. CVS: Regular rate and rhythm, normal S1 and S2, no gallops, no murmurs, no rubs ABDOMEN: Soft, nontender. No hepatosplenomegaly, normal bowel sounds, no guarding or rigidity. EXTREMITIES: No clubbing, no edema, no cyanosis, 2+ pulses and upper and lower extremities. Left groin mild hematoma, 1+ right pedal pulse, Doppler pulse in the left pedal, with extremities are warm, MUSCULOSKELETAL: Muscle strength and tone normal. SPINE: No scoliosis or deformity SKIN: No rashes CENTRAL NERVOUS SYSTEM: Alert and oriented -3. No focal deficits, tone is normal in all 4 extremities. PSYCHIATRIC: Alert and oriented -3. Appropriate affect. Intact judgment and insight. - Labs CBC & Chem 7: 01/23/20 10:02 01/23/20 10:02 Labs: Abnormal Lab Results - Last 24 Hours (Table) 01/23/20 01/23/20 Range/Units 10:02 10:02 MCV 101.2 H (80.0-100.0) fL Plt Count 141 L (150-450) k/uL Sodium 133 L (137-145) mmol/L AST 104 H (17-59) U/L ALT 53 H (4-49) U/L Total Protein 6.1 L (6.3-8.2) g/dL Assessment and Plan Plan: Assessment: #1. Acute right lower extremity ischemia, status post thrombolytic infusion, and angioplasty and stent placement, postoperative day #1 #2. Bilateral proximal superficial femoral artery occlusion #3. Severe peripheral arterial disease, status post previous history of right lower extremity angiogram with thrombolytics angioplasty and stent in September 2018 #4. Chronic tobacco abuse, and patient carries [id number] smoking history of 1 12/2 packs per day #5. Alcohol abuse #6. Medical noncompliance #7. Left inguinal hernia, nonincarcerated #8. History of proximal atrial fibrillation #9. History of varicose veins Plan: Patient has had no acute events overnight, vital signs are stable, taste chest x-ray has been reviewed showing showing right basilar atelectasis, no fever or chills, encourage deep breathing and coughing, encouraged nicotine cessation. Patient is anticipated to be discharged home today, he is encouraged to stay on the prescribed medication regimen, and follow-up with vascular surgery I performed a history & physical examination of the patient and discussed their management with my nurse practitioner, Mehnaz Morales. I reviewed the nurse practitioner's note and agree with the documented findings and plan of care. Lung sounds are positive for diminished breath sounds The findings and the impression was discussed with the patient. I attest to the documentation by the nurse practitioner. Time with Patient: Less than 30
--- NOTE | 2020-01-24 00:26 | DS ---
DISCHARGE SUMMARY DATE OF SERVICE: 01/23/2020 FINAL DIAGNOSES: 1. Peripheral vascular disease with SFA occlusion on the right side, status post tPA as well as PTBA and stent placement. 2. History of peripheral vascular disease and stenting previously. 3. Polycythemia. 4. Hypoxia. 5. Increased WBC. 6. Hyponatremia. 7. Hyperkalemia. 8. Elevated lactic acid. 9. Increased AST, ALT, possibly alcoholic hepatitis. 10.History of ETOH. 11.History of atrial fibrillation chronic. 12.History of nicotine dependence. 13.Anxiety. 14.History of noncompliance. 15.History of congestive heart failure with chronic systolic dysfunction. Ejection fraction 45% to 50%. 16.FULL CODE. DISCHARGE DISPOSITION: The patient will be discharged in stable condition with guarded prognosis. Total time taken 35 minutes. HISTORY OF PRESENT ILLNESS: This 59-year-old gentleman with a past medical history of multiple medical problems including peripheral vascular disease, SFA occlusion was diagnosed. Dr. Nuno performed TPA infusion initially, subsequently PTBA and stent placement. Patient improved significantly. On exam vitals stable. Cardiovascular S1, S2. Abdomen soft. Nervous system: No focal deficits. Recommend smoking as well as ETOH cessation also. DISCHARGE ADVICE AND MEDICATIONS: 1. Diet is cardiac. 2. Activity limited until followup. 3. Follow up with Dr. Rollins in 2-3 days. 4. Follow up with Dr. Nuno as advised. DISCHARGE MEDICATIONS: 1. Aspirin 81 mg p.o. daily. 2. Cozaar 25 mg p.o. daily. 3. Folic acid 1 mg daily. 4. Habitrol 21 daily. 5. Lipitor 40 mg daily. 6. Lopressor 25 mg b.i.d. 7. Esperance 5 mg q.6 p.r.n. 8. Plavix 75 mg p.o. daily. 9. Thiamine 100 mg p.o. daily. MMODL / IJN: [id number] /
[2020-01-24] MEDS ORDERED: ASPIRIN 81 MG PO SCH (09:00)
[2020-01-24] MEDS ORDERED: CLOPIDOGREL 75 MG TAB PO SCH (09:00)
--- NOTE | 2020-01-26 11:08 | CDI ---
Documentation Clarification Form Date: 01/26/2020 10:53:11 AM From: Yvette Islas CCS, CCDS Admit Date: 01/21/2020 10:53:00 AM Patient Name: Mc Dangelo Visit Number: [id number] Discharge Date: 01/23/2020 05:00:00 PM ATTENTION: The Clinical Documentation Specialists (CDI) and [facility] Coding Staff appreciate your assistance in clarifying documentation. Please respond to the clarification below the line at the bottom and electronically sign. The CDI & [facility] Coding staff will review the response and follow-up if needed. Please note: Queries are made part of the Legal Health Record. If you have any questions, please contact the author of this message via ITS. Dr. Karolina Nuno: Per the 01/21 Procedure Note, the patient developed small pericatheter hematoma for which a pressure dressing was placed. Per the 01/22 Vascular Surgery Progress Note: "Left groin with ecchymosis, approximated quarter size hematoma noted." Per the 01/22 Pulmonary Progress Note: "Left groin mild hematoma, 1+ right pedal pulse, Doppler pulse in the left pedal, with extremities are warm." History/Risk Factors: PVD with previous stent, Smoker. History of Alcoholism & Chronic Atrial Fibrillation. Clinical Indicators: Presented to the ED on 01/20 with right lower leg pain. Patient had a peripheral stent placed in September 2019. 01/20 Procedure: Right lower extremity angiogram third order to distal popliteal artery, initiation of Thrombolytics. 01/21 Procedure: Right lower extremity angiogram, Right distal superficial femoral artery PTBA with stent place, Left Iliofemoral angiogram. Treatment: IV fluid 1,000 mls 130/ms/hr, IV Dilaudid, IV Heparin drip, IV Cathflo Activase, IV Alteplase, IV Apresoline. IM Vit B1. Patient's discharge was held one extra day, pressure dressing applied. Daily H/H. Based on the clinical evidence, please clarify the following: Left groin hematoma was an expected outcome of the procedure D/T TPA thrombolysis (Last Revision: February 2019) MTDD
== END 2020-01-23 17:00 | disposition home or self-care (01) ==
LOC: EC 08:28 → INTOOBSV 10:53 → 5NMEDONC 10:53 → 3SCARD 12:17 → 2SICU 13:27 → 3SCARD 01-22 18:57 → UNDODISIN 01-23 17:00
PROVIDERS: ADMIT Hospitalist; ATTEND Hospitalist
DX: I70.221 Atherosclerosis of native arteries of extremities with rest pain, right leg (principal); I48.20 Chronic atrial fibrillation, unspecified; F41.9 Anxiety disorder, unspecified; E87.1 Hypo-osmolality and hyponatremia; I50.22 Chronic systolic (congestive) heart failure; J44.9 Chronic obstructive pulmonary disease, unspecified; F10.20 Alcohol dependence, uncomplicated; I25.5 Ischemic cardiomyopathy; Z91.19 Patient's noncompliance with other medical treatment and regimen; I83.813 Varicose veins of bilateral lower extremities with pain; D75.1 Secondary polycythemia; E87.5 Hyperkalemia; I34.0 Nonrheumatic mitral (valve) insufficiency; M79.81 Nontraumatic hematoma of soft tissue; R09.02 Hypoxemia; I45.10 Unspecified right bundle-branch block; K40.90 Unilateral inguinal hernia, without obstruction or gangrene, not specified as recurrent; F17.210 Nicotine dependence, cigarettes, uncomplicated; Z95.820 Peripheral vascular angioplasty status with implants and grafts; Z98.890 Other specified postprocedural states; Z83.3 Family history of diabetes mellitus; Z82.3 Family history of stroke; Z82.49 Family history of ischemic heart disease and other diseases of the circulatory system; I11.0 Hypertensive heart disease with heart failure
CPT/HCPCS: 96376; 96361; 96365; 96366; 96375; 99285; 36415; 93005; 93306; 36247; 37226; 75710; 37211; 37214; 80053 ×3; 82565; 83605; 83735 ×2; 84520; 85025 ×3; 85027; 85384 ×2; 85610; 85730 ×2; 71045 ×2; 93971; 75635; G0378 ×6; C1894 ×3; C1751; C1769 ×8; C1725; C1887; C1876; C1760; S4990 ×3; J2250 ×2; J0360; J1644 ×4; J3411; J2001 ×2; J3010 ×2; J1170 ×2; J2997 ×2; C9113 ×2; Q9966; Q9967; 96374

== ENCOUNTER 2021-07-05 10:58 | Emergency (ER) | payer OTHER ==
[2021-07-05 12:02] VITALS: TEMP 98.3
--- NOTE | 2021-07-05 15:07 | ED ---
General Adult HPI - General Chief complaint: Skin/Abscess/Foreign Body Stated complaint: Wound on Leg Time Seen by Provider: 07/05/21 14:30 Source: patient Mode of arrival: ambulatory Limitations: no limitations - History of Present Illness Initial comments: This 7-year-old male past medical history of chronic bilateral lower extremity varicose veins and venous insufficiency, stent placement in his right lower extremity presents to the emergency department with ulceration to his inner left ankle since January that has had increasing pain over the last 3-4 days. Patient states he has had increased pain to the ulceration on his left ankle that has been slowly growing in size since January. He denies seeing a primary care provider as he states he does not have one. Patient states over the last 1-2 days he's also been experiencing some left calf pain. Patient denies taking any medications for the pain. Patient states there is a little bit of drainage/oozing coming from ulceration since January. Patient denies any chest pain, shortness of breath, abdominal pain, nausea, vomiting, change in bowel or bladder, change in appetite, loss of sensation or loss of range of motion of left lower extremity. He denies any erythema or coolness to his left lower extremity. He states this does not feel like when he was not getting blood flow to his right foot-he states this feels different as he did not have an ulceration on the right side and his leg was cold, pale and he was losing sensation with his right leg. Patient denies any history of diabetes mellitus. - Related Data Home Medications Medication Instructions Recorded Confirmed diphenhydrAMINE HCL [Benadryl] 50 mg PO BID 07/05/21 07/05/21 Previous Rx's Medication Instructions Recorded Sulfamethox-Tmp 800-160Mg [Bactrim 1 tab PO Q12HR #28 tab 07/05/21 DS 800-160 mg] Allergies Allergy/AdvReac Type Severity Reaction Status Date / Time No Known Allergies Allergy Verified 07/05/21 15:21 Review of Systems ROS Statement: Those systems with pertinent positive or pertinent negative responses have been documented in the HPI. ROS Other: All systems not noted in ROS Statement are negative. Past Medical History Past Medical History: Atrial Fibrillation Additional Past Medical History / Comment(s): alcoholism and smoker History of Any Multi-Drug Resistant Organisms: None Reported Past Surgical History: Tonsillectomy Additional Past Surgical History / Comment(s): stent to rt leg Past Anesthesia/Blood Transfusion Reactions: No Reported Reaction Past Psychological History: Anxiety Smoking Status: Current every day smoker Past Alcohol Use History: None Reported Past Drug Use History: None Reported - Past Family History Mother Family Medical History: Diabetes Mellitus, Hypertension Additional Family Medical History / Comment(s): Family history of varicose veins. Father Family Medical History: CVA/TIA, Myocardial Infarction ([place]) General Exam Limitations: no limitations General appearance: alert, in no apparent distress Head exam: Present: atraumatic, normocephalic, normal inspection Eye exam: Present: normal appearance, PERRL, EOMI. Absent: scleral icterus, conjunctival injection, periorbital swelling Pupils: Present: normal accommodation ENT exam: Present: normal exam, mucous membranes moist Neck exam: Present: full ROM. Absent: tenderness, meningismus, lymphadenopathy Respiratory exam: Present: normal lung sounds bilaterally. Absent: respiratory distress, wheezes, rales, rhonchi, stridor, chest wall tenderness Cardiovascular Exam: Present: regular rate, normal rhythm, normal heart sounds. Absent: systolic murmur, diastolic murmur, rubs, gallop, clicks GI/Abdominal exam: Present: soft, normal bowel sounds. Absent: distended, tend erness, guarding, rebound, rigid Extremities exam: Present: normal inspection (Patient with bilateral lower extremity venous insufficiency- appears chronic in nature. Varicose veins present bilateral lower extremities the patient states that been there for years. Ulceration size of a quarter to inner left ankle- chronic in nature without erythema, indurance or fluctuance), full ROM, normal capillary refill (Normal capillary refill bilateral lower extremities), calf tenderness (Mild left calf tenderness to palpation), other (Ulceration present on the left lower ankle that is oozing. DP pulses auscultated bilaterally with Doppler ultrasound. No paleness, cold or sinus arterial insufficiency present. No erythema, warmth or sign of acute infection. Minimal swelling to inner left ankle). Absent: tenderness Back exam: Present: full ROM. Absent: CVA tenderness (R), CVA tenderness (L), paraspinal tenderness, vertebral tenderness Neurological exam: Present: alert, oriented X3, CN II-XII intact, normal gait Psychiatric exam: Present: normal affect, normal mood Skin exam: Present: warm, dry, intact, normal color. Absent: rash Course Vital Signs 07/05/21 12:00 Temperature 98.3 F Pulse Rate 73 Respiratory 16 Rate Blood Pressure 148/64 O2 Sat by Pulse 98 Oximetry Medical Decision Making - Medical Decision Making This 61-year-old male with past medical history of chronic venous insufficiency bilateral lower extremities presents emergency Department with left ankle ulceration the size of a quarter present since January. No erythema, warmth or sign of acute infection present. Patient with chronic venous insufficiency bilateral lower extremities along with varicose veins present bilateral lower extremities. Patient without any leukocytosis. Chemistry unremarkable. Venous Doppler without evidence of left lower extremity DVT. X-ray left ankle impression: Findings may result of chronic overlying cellulitis. Generalized soft tissue swelling and scattered branch officer appearing periostitis along the distal tibia and fibula. No lytic destruction to suggest osteomyelitis. Patient given primary care provider referral information along with wound care referral information and instructed to follow-up with both primary care and wou nd care next 1-2 days. Patient placed on Bactrim 14 days. Strict return precautions were discussed. Patient verbally agreed to plan. Patient sent home in stable condition. Case discussed in detail with my attending, Dr. Rizo. - Lab Data Result diagrams: 07/05/21 16:24 07/05/21 16:24 Lab Results 07/05/21 07/05/21 Range/Units 16:24 16:24 WBC 5.9 (3.8-10.6) k/uL RBC 5.03 (4.30-5.90) m/uL Hgb 15.5 (13.0-17.5) gm/dL Hct 49.5 (39.0-53.0) % MCV 98.4 (80.0-100.0) fL MCH 30.8 (25.0-35.0) pg MCHC 31.3 (31.0-37.0) g/dL RDW 13.4 (11.5-15.5) % Plt Count 190 (150-450) k/uL MPV 7.9 Neutrophils % 63 % Lymphocytes % 23 % Monocytes % 6 % Eosinophils % 4 % Basophils % 1 % Neutrophils # 3.7 (1.3-7.7) k/uL Lymphocytes # 1.4 (1.0-4.8) k/uL Monocytes # 0.4 (0-1.0) k/uL Eosinophils # 0.2 (0-0.7) k/uL Basophils # 0.1 (0-0.2) k/uL Sodium 139 (137-145) mmol/L Potassium 4.7 (3.5-5.1) mmol/L Chloride 105 (98-107) mmol/L Carbon Dioxide 28 (22-30) mmol/L Anion Gap 6 mmol/L BUN 12 (9-20) mg/dL Creatinine 0.82 (0.66-1.25) mg/dL Est GFR (CKD-EPI)AfAm >90 (>60 ml/min/1.73 sqM) Est GFR (CKD-EPI)NonAf >90 (>60 ml/min/1.73 sqM) Glucose 94 (74-99) mg/dL Calcium 9.5 (8.4-10.2) mg/dL Total Bilirubin 0.6 (0.2-1.3) mg/dL AST 37 (17-59) U/L ALT 27 (4-49) U/L Alkaline Phosphatase 121 (38-126) U/L Total Protein 7.9 (6.3-8.2) g/dL Albumin 4.8 (3.5-5.0) g/dL Disposition Clinical Impression: Chronic venous insufficiency of lower extremity, Ulcer of extremity due to chronic venous insufficiency, Varicose veins of both lower extremities Disposition: HOME SELF-CARE Condition: Stable Instructions (If sedation given, give patient instructions): Acute Wound Care (ED), Chronic Wound Care (ED), Venous Insufficiency (DC), Chronic Wounds (ED) Additional Instructions: Please follow-up with primary care provider in the next 1-2 days. Follow-up with wound care in 1-2 days. Take Bactrim as directed. Return to the emergency department with any new, worsening, or concerning symptoms. Is patient prescribed a controlled substance at d/c from ED?: No Referrals: None,Stated [Primary Care Provider] - 1-2 days Richard Goodwin [STAFF PHYSICIAN] - 1-2 days [facility] [NON-STAFF] - 1-2 days Time of Disposition: 17:41
--- NOTE | 2021-07-05 15:52 | XR ---
EXAMINATION TYPE: XR ankle complete 3 views LT DATE OF EXAM: 07/05/2021 Comparison: None Clinical History: 61-year-old male redness and pain, nonhealing ulcer along the heel for one month. Findings: Generalized soft tissue swelling. Some chronic appearing periosteal bone formation along the distal t ibia and fibula. Ankle mortise congruent with preservation of the distal tibiofibular overlap. Modera te sized plantar heel spur. No underlying discrete osseous erosions identified. Impression: 1. Generalized soft tissue swelling and scattered mature appearing periostitis along the distal tibia and fibula. Findings may be the result of chronic overlying cellulitis or venous stasis. Clinically correlate. 2. Moderate-sized plantar heel spur. No discrete lytic destruction to suggest osteomyelitis at this t leslye.
--- NOTE | 2021-07-05 16:13 | US ---
EXAMINATION TYPE: US venous doppler duplex LE LT DATE OF EXAM: 07/05/2021 2:53 PM COMPARISON: US 2019 CLINICAL HISTORY: pain. Left calf pain SIDE PERFORMED: Left TECHNIQUE: The lower extremity deep venous system is examined utilizing real time linear array sonog tisha with graded compression, doppler sonography and color-flow sonography. VESSELS IMAGED: Common Femoral Vein Deep Femoral Vein Greater Saphenous Vein * Femoral Vein Popliteal Vein Small Saphenous Vein * Proximal Calf Veins (* superficial vessels) Left Leg: Appears negative for DVT IMPRESSION: 1. Left lower extremity ultrasound negative for deep venous thrombosis.
[2021-07-05 16:44] LABS: Basophils # (A) 0.1 k/uL (0-0.2); Basophils % (A) 1 %; Eosinophils # (A) 0.2 k/uL (0-0.7); Eosinophils % (A) 4 %; HCT 49.5 % (39.0-53.0); HGB 15.5 gm/dL (13.0-17.5); Lymphocytes # (A) 1.4 k/uL (1.0-4.8); Lymphocytes % (A) 23 %; MCH 30.8 pg (25.0-35.0); MCHC 31.3 g/dL (31.0-37.0); MCV 98.4 fL (80.0-100.0); Mean Platelet Volume 7.9; Monocytes # (A) 0.4 k/uL (0-1.0); Monocytes % (A) 6 %; Neutrophils # (A) 3.7 k/uL (1.3-7.7); Neutrophils % (A) 63 %; Platelet Count 190 k/uL (150-450); RBC 5.03 m/uL (4.30-5.90); RDW 13.4 % (11.5-15.5); WBC 5.9 k/uL (3.8-10.6)
[2021-07-05 16:52] LABS: ALT 27 U/L (4-49); AST 37 U/L (17-59); African American GFR (CKD) >90 (>60 ml/min/1.73 sqM); Albumin 4.8 g/dL (3.5-5.0); Alkaline Phosphatase 121 U/L (38-126); Anion Gap 6 mmol/L; Blood Urea Nitrogen 12 mg/dL (9-20); Calcium 9.5 mg/dL (8.4-10.2); Carbon Dioxide 28 mmol/L (22-30); Chloride 105 mmol/L (98-107); Glucose 94 mg/dL (74-99); Non-African American GFR(CKD) >90 (>60 ml/min/1.73 sqM); Potassium 4.7 mmol/L (3.5-5.1); Sodium 139 mmol/L (137-145); Total Bilirubin 0.6 mg/dL (0.2-1.3); Total Protein 7.9 g/dL (6.3-8.2)
[2021-07-05] MEDS ORDERED: IBUPROFEN 400 MG TAB PO STA (17:41)
[2021-07-05 18:02] VITALS: BP 168/101; PULSE 53; RESP 15
== END 2021-07-05 18:02 | disposition home or self-care (01) ==
LOC: EC 10:58
DX: I83.93 Asymptomatic varicose veins of bilateral lower extremities (principal); I87.2 Venous insufficiency (chronic) (peripheral); F17.200 Nicotine dependence, unspecified, uncomplicated
CPT/HCPCS: 36415; 80053; 85025; 87070; 87205; 99284

== ENCOUNTER 2021-08-06 22:09 | Emergency (ER) | payer OTHER ==
[2021-08-06] MEDS ORDERED: TRANEXAMIC ACID 1,000 MG/10 ML VIAL MISCELLANE ONE (22:29)
[2021-08-06 22:30] VITALS: BP 162/96
[2021-08-06 22:34] VITALS: PULSE 90; RESP 19; TEMP 98.2
--- NOTE | 2021-08-06 22:51 | ED ---
Lower Extremity Injury HPI - General Stated Complaint: Bleeding Time Seen by Provider: 08/06/21 22:29 Source: patient, family Mode of arrival: wheelchair Limitations: no limitations - History of Present Illness Initial Comments: Mc Dangelo is a 61yo M with PMH of PAD who presents to the ER via private vehicle for evaluation of bleeding to the left ankle. She reports he has known varicosities, he's also been a nonhealing ulcer over the medial malleolus. He was previously on antibiotics for this. 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 He states that prior to arrival he noticed that the wound started bleeding, he reports that blood which she sprang out of it. He covered it with a Band-Aid tried to wrap it with a towel put his foot in a trash bag to contain the bleeding and came to the hospital. She reports it is often followed doctors. He is not on any blood thinners. He has had previous intervention by Dr. Nuno for arterial occlusion of the right leg. - Related Data Home Medications Medication Instructions Recorded Confirmed diphenhydrAMINE HCL [Benadryl] 50 mg PO BID 07/05/21 07/05/21 Previous Rx's Medication Instructions Recorded Sulfamethox-Tmp 800-160Mg [Bactrim 1 tab PO Q12HR #28 tab 07/05/21 DS 800-160 mg] Allergies Allergy/AdvReac Type Severity Reaction Status Date / Time No Known Allergies Allergy Verified 08/06/21 22:29 Review of Systems ROS Statement: Those systems with pertinent positive or pertinent negative responses have been documented in the HPI. ROS Other: All systems not noted in ROS Statement are negative. Past Medical History Past Medical History: Atrial Fibrillation Additional Past Medical History / Comment(s): alcoholism and smoker History of Any Multi-Drug Resistant Organisms: MRSA Date of last positivie culture/infection: 07/05/21 MDRO Source:: Left Ankle Past Surgical History: Tonsillectomy Additional Past Surgical History / Comment(s): stent to rt leg Past Anesthesia/Blood Transfusion Reactions: No Reported Reaction Past Psychological History: Anxiety Smoking Status: Current every day smoker Past Alcohol Use History: None Reported Past Drug Use History: None Reported - Past Family History Mother Family Medical History: Diabetes Mellitus, Hypertension Additional Family Medical History / Comment(s): Family history of varicose veins. Father Family Medical History: CVA/TIA, Myocardial Infarction ([place]) General Exam - General Exam Comments Initial Comments: Physical Exam GENERAL: Patient is well-developed and well-nourished. HENT: Normocephalic, Atraumatic. EYES: PERRL, EOMI PULMONARY: Unlabored respirations CARDIOVASCULAR: RRR Evidence of PAD bilaterally, weak DP/PT pulses in right however cap refill is 3 sec ABDOMEN: Non-distended SKIN: Non healing ulcer over medial maleolus : Deferred NEUROLOGIC: Alert and oriented Normal speech MUSCULOSKELETAL: Moving all extremities with no apparent bony injury PSYCHIATRIC: No SI/HI Limitations: no limitations Course Vital Signs 08/06/21 22:27 Temperature 97.5 F L Pulse Rate 103 H Respiratory 20 Rate Blood Pressure 162/96 O2 Sat by Pulse 100 Oximetry Medical Decision Making - Medical Decision Making Patient was seen, wound was exposed and bleeding has resolved, a blood clot is visible on the wound bed TXA soaked gauze was applied to the wound and the ankle was wrapped in coban Patient was repeatedly encouraged to follow with vascular surgery due to non- healing wound, he was also advised to quit smoking. I did advise the patient that I do not expect his wound to heal without intervention. Disposition Clinical Impression: PAD (peripheral artery disease), Bleeding from varicose veins of left lower extremity Disposition: HOME SELF-CARE Condition: Serious Is patient prescribed a controlled substance at d/c from ED?: No Referrals: None,Stated [Primary Care Provider] - 1-2 days Forrest Rollins MD [REFERRING] - 1-2 days Karolina Nuno DO [STAFF PHYSICIAN] - 1-2 days
== END 2021-08-06 23:22 | disposition home or self-care (01) ==
LOC: EC 22:09
DX: I83.892 Varicose veins of left lower extremity with other complications (principal); I73.9 Peripheral vascular disease, unspecified; F17.200 Nicotine dependence, unspecified, uncomplicated
CPT/HCPCS: 99283

== ENCOUNTER 2021-12-10 22:04 | Emergency (ER) | payer OTHER ==
[2021-12-10] MEDS ORDERED: LIDOCAINE 1% INJ 10MG/ML (5 ML VIAL-PF) SQ ONE (22:36)
--- NOTE | 2021-12-10 22:58 | ED ---
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 Patient has no pain in that area and did not notice bleeding of any and evaluation of significant bleeding noticed all over the floor his pants and sock, he currently doesn't wound wrapped. No blood thinners. Patient is not lightheaded or dizzy MD Complaint: other (Bleeding from chronic ulcer) -: hour(s) Location: left, lower extremity Severity scale (1-10): 4 (Bleeding did seem to be significant prior to arrival) Consistency: constant, other (Wound currently is wrapped) Worsens with: nothing, walking Associated Symptoms: denies other symptoms - Related Data Home Medications Medication Instructions Recorded Confirmed diphenhydrAMINE HCL [Benadryl] 50 mg PO BID 07/05/21 07/05/21 Previous Rx's Medication Instructions Recorded Sulfamethox-Tmp 800-160Mg [Bactrim 1 tab PO Q12HR #28 tab 07/05/21 DS 800-160 mg] Allergies Allergy/AdvReac Type Severity Reaction Status Date / Time No Known Allergies Allergy Verified 12/10/21 22:18 Review of Systems ROS Statement: Those systems with pertinent positive or pertinent negative responses have been documented in the HPI. ROS Other: All systems not noted in ROS Statement are negative. Past Medical History Past Medical History: Atrial Fibrillation Additional Past Medical History / Comment(s): alcoholism and smoker History of Any Multi-Drug Resistant Organisms: MRSA Date of last positivie culture/infection: 07/05/21 MDRO Source:: Left Ankle Past Surgical History: Tonsillectomy Additional Past Surgical History / Comment(s): stent to rt leg Past Anesthesia/Blood Transfusion Reactions: No Reported Reaction Past Psychological History: Anxiety Smoking Status: Current every day smoker Past Alcohol Use History: None Reported Past Drug Use History: None Reported - Past Family History Mother Family Medical History: Diabetes Mellitus, Hypertension Additional Family Medical History / Comment(s): Family history of varicose veins. Father Family Medical History: CVA/TIA, Myocardial Infarction ([place]) General Exam Limitations: no limitations General appearance: alert, in no apparent distress Head exam: Present: atraumatic, normocephalic, normal inspection Eye exam: Present: normal appearance, PERRL, EOMI. Absent: scleral icterus, conjunctival injection, periorbital swelling ENT exam: Present: normal exam, mucous membranes moist Neck exam: Present: normal inspection. Absent: tenderness, meningismus, lymphadenopathy Respiratory exam: Present: normal lung sounds bilaterally. Absent: respiratory distress, wheezes, rales, rhonchi, stridor Cardiovascular Exam: Present: regular rate, normal rhythm, normal heart sounds. Absent: systolic murmur, diastolic murmur, rubs, gallop, clicks GI/Abdominal exam: Present: soft, normal bowel sounds. Absent: distended, tenderness, guarding, rebound, rigid Extremities exam: Present: normal inspection, full ROM, normal capillary refill, other (Left lower extremity chronic ulcer with acute bleeding. Wound is cleaned and dressed here in the ER bleeding has stopped). Absent: tenderness, pedal edema, joint swelling, calf tenderness Back exam: Present: normal inspection Neurological exam: Present: alert, oriented X3, CN II-XII intact Psychiatric exam: Present: normal affect, normal mood Skin exam: Present: warm, dry, intact, normal color. Absent: rash Course Vital Signs 12/10/21 12/10/21 22:15 23:19 Temperature 97.8 F 97.9 F Pulse Rate 72 78 Respiratory 18 19 Rate Blood Pressure 173/76 151/99 O2 Sat by Pulse 100 100 Oximetry - Reevaluation(s) Reevaluation #1: 12/10/21 23:25 Medical records reviewed Reevaluation #2: 12/10/21 23:25 Patient informed results and questions answered Reevaluation #3: 12/10/21 23:25 Patient has no current complaints, bleeding remained stopped Medical Decision Making - Medical Decision Making 61 male DF for evaluation with peripheral vascular disease chronic ulcer with acute bleeding. Bleeding has stopped here in the ER wound is injected with lidocaine with epinephrine doing further enhance bleeding fortified with Gelfoam Surgif[place]am and bandaged, no active bleeding and patient can be discharged home Disposition Clinical Impression: Ulcer of left ankle, Bleeding from wound Disposition: HOME SELF-CARE Condition: Good Instructions (If sedation given, give patient instructions): Acute Wound Care (ED), Chronic Wound Care (ED) Is patient prescribed a controlled substance at d/c from ED?: No Referrals: None,Stated [REFERRING] - 1-2 days Time of Disposition: 23:10
[2021-12-10 23:21] VITALS: BP 151/99; PULSE 78; RESP 19; TEMP 97.9
== END 2021-12-10 23:30 | disposition home or self-care (01) ==
LOC: EC 22:04
DX: L97.309 Non-pressure chronic ulcer of unspecified ankle with unspecified severity (principal); I48.91 Unspecified atrial fibrillation; F41.9 Anxiety disorder, unspecified; F17.200 Nicotine dependence, unspecified, uncomplicated; Z79.899 Other long term (current) drug therapy
CPT/HCPCS: 99283

== ENCOUNTER 2021-12-14 23:28 | Emergency (ER) | payer OTHER ==
[2021-12-14 23:31] VITALS: BP 174/103; PULSE 63; RESP 20; TEMP 97.7
--- NOTE | 2021-12-15 00:53 | ED ---
Skin/Abscess/FB HPI - General Chief complaint: Skin/Abscess/Foreign Body Stated complaint: left ankle sore Time Seen by Provider: 12/15/21 00:18 Source: patient Mode of arrival: ambulatory Limitations: no limitations - History of Present Illness Initial comments: Patient is a 61-year-old male presenting with chief complaint of bleeding from left ankle wound. Patient is currently being treated at our wound clinic, was seen this week and has an appointment next week. Patient states that about an hour prior to arrival he noticed the wound was bleeding through his bandage. Patient denies any injury or trauma. No dizziness or lightheadedness. No chest pain or difficulty breathing. No fever or chills. - Related Data Home Medications Medication Instructions Recorded Confirmed diphenhydrAMINE HCL [Benadryl] 50 mg PO BID 07/05/21 07/05/21 Previous Rx's Medication Instructions Recorded Sulfamethox-Tmp 800-160Mg [Bactrim 1 tab PO Q12HR #28 tab 07/05/21 DS 800-160 mg] Allergies Allergy/AdvReac Type Severity Reaction Status Date / Time No Known Allergies Allergy Verified 12/14/21 23:31 Review of Systems ROS Statement: Those systems with pertinent positive or pertinent negative responses have been documented in the HPI. ROS Other: All systems not noted in ROS Statement are negative. Past Medical History Past Medical History: Atrial Fibrillation Additional Past Medical History / Comment(s): alcoholism and smoker History of Any Multi-Drug Resistant Organisms: MRSA Date of last positivie culture/infection: 07/05/21 MDRO Source:: Left Ankle Past Surgical History: Tonsillectomy Additional Past Surgical History / Comment(s): stent to rt leg Past Anesthesia/Blood Transfusion Reactions: No Reported Reaction Past Psychological History: Anxiety Smoking Status: Current every day smoker Past Alcohol Use History: None Reported Past Drug Use History: None Reported - Past Family History Mother Family Medical History: Diabetes Mellitus, Hypertension Additional Family Medical History / Comment(s): Family history of varicose veins. Father Family Medical History: CVA/TIA, Myocardial Infarction ([place]) General Exam Limitations: no limitations General appearance: alert, in no apparent distress Head exam: Present: atraumatic, normocephalic, normal inspection Eye exam: Present: normal appearance, PERRL, EOMI. Absent: scleral icterus, conjunctival injection, periorbital swelling Extremities exam: Present: full ROM, pedal edema Neurological exam: Present: alert, oriented X3, CN II-XII intact Psychiatric exam: Present: normal affect, normal mood Skin exam: Present: other (Ulcerated wound on the left ankle) Course Vital Signs 12/14/21 23:28 Temperature 97.7 F Pulse Rate 63 Respiratory 20 Rate Blood Pressure 174/103 O2 Sat by Pulse 98 Oximetry Medical Decision Making - Medical Decision Making Patient is a 61-year-old male presenting with chief complaint of bleeding wound. Patient has a open ulcerated wound to the left ankle, he currently sees wound care here at our facility for this. Patient states that after work today the wound started bleeding through his wrap provided by wound care. Here in the ER after unwrapping the wound, bleeding appears well controlled. Gelfoam is applied over the ulcer to prevent any future bleeding. Wound is redressed. Instructed to keep follow-up appointment with wound care center. Follow-up with PCP. Report back to ER with any new or worsening symptoms. Discussed return parameters and answered all questions. Patient conveyed verbal understanding and agreed to the plan. I discussed this case in detail with my attending Dr. Buchanan Disposition Clinical Impression: Ulcer of left ankle Disposition: HOME SELF-CARE Condition: Fair Instructions (If sedation given, give patient instructions): Venous Insufficiency ([place]), Chronic Wounds (ED) Additional Instructions: Follow-up with PCP in wound care. Report back to ER with any new or worsening symptoms. Keep the wound clean, dry, and covered. Is patient prescribed a controlled substance at d/c from ED?: No Referrals: [facility] [Primary Care Provider] - 1-2 days [facility] [NON-STAFF] - 12/19/21 Time of Disposition: 02:05
[2021-12-15] MEDS ORDERED: GELATIN SPONGE,ABSORB (LARGE) 1 EACH SPONGE TOPICAL STA (01:02)
== END 2021-12-15 02:41 | disposition home or self-care (01) ==
LOC: EC 23:28
DX: L97.329 Non-pressure chronic ulcer of left ankle with unspecified severity (principal); I48.91 Unspecified atrial fibrillation; F41.9 Anxiety disorder, unspecified; F17.200 Nicotine dependence, unspecified, uncomplicated; Z79.899 Other long term (current) drug therapy
CPT/HCPCS: 99283

== ENCOUNTER 2021-12-24 16:57 | Emergency (ER) | payer OTHER ==
[2021-12-24 17:21] VITALS: TEMP 98.1
[2021-12-24] MEDS ORDERED: LIDOCAINE/EPINEPHR/TETRACAINE 5 ML BOTTLE TOPICAL ONE (18:12)
[2021-12-24] MEDS ORDERED: LIDOCAINE 0.5%-EPI 1:200,000 50 ML VIAL SQ STA (18:12)
[2021-12-24] MEDS ORDERED: GELATIN SPONGE,ABSORB (LARGE) 1 EACH SPONGE TOPICAL STA (18:13)
--- NOTE | 2021-12-24 20:12 | ED ---
Wound/Laceration HPI - General Chief Complaint: Wound/Laceration Stated Complaint: L foot sore Time Seen by Provider: 12/24/21 18:00 Source: patient Mode of arrival: ambulatory Limitations: no limitations - History of Present Illness Initial Comments: Patient is a 61-year-old male presenting with chief complaint of bleeding to the left ankle. Patient has ulcerated wound recurrently bleeds, sees wound care here at our facility. Patient states that today while at the store the wound started bleeding, he was unaware until someone else pointed out to him. No increased pain. No known injury or trauma. Patient states that he was recently seen by his vascular surgeon who applied some sutures over an area of recurrent bleeding. At time of presentation the bleeding is well-controlled. - Related Data Home Medications Medication Instructions Recorded Confirmed diphenhydrAMINE HCL [Benadryl] 50 mg PO BID 07/05/21 07/05/21 Previous Rx's Medication Instructions Recorded Sulfamethox-Tmp 800-160Mg [Bactrim 1 tab PO Q12HR #28 tab 07/05/21 DS 800-160 mg] Allergies Allergy/AdvReac Type Severity Reaction Status Date / Time No Known Allergies Allergy Verified 12/24/21 17:21 Review of Systems ROS Statement: Those systems with pertinent positive or pertinent negative responses have been documented in the HPI. ROS Other: All systems not noted in ROS Statement are negative. Past Medical History Past Medical History: Atrial Fibrillation Additional Past Medical History / Comment(s): alcoholism and smoker History of Any Multi-Drug Resistant Organisms: MRSA Date of last positivie culture/infection: 07/05/21 MDRO Source:: Left Ankle Past Surgical History: Tonsillectomy Additional Past Surgical History / Comment(s): stent to rt leg Past Anesthesia/Blood Transfusion Reactions: No Reported Reaction Past Psychological History: Anxiety Smoking Status: Current every day smoker Past Alcohol Use History: None Reported Past Drug Use History: None Reported - Past Family History Mother Family Medical History: Diabetes Mellitus, Hypertension Additional Family Medical History / Comment(s): Family history of varicose veins. Father Family Medical History: CVA/TIA, Myocardial Infarction ([place]) General Exam Limitations: no limitations General appearance: alert, in no apparent distress Head exam: Present: atraumatic, normocephalic, normal inspection Eye exam: Present: normal appearance Neck exam: Present: normal inspection Respiratory exam: Present: normal lung sounds bilaterally. Absent: respiratory distress, wheezes, rales, rhonchi, stridor Cardiovascular Exam: Present: regular rate, normal rhythm, normal heart sounds. Absent: systolic murmur, diastolic murmur, rubs, gallop, clicks Neurological exam: Present: alert, oriented X3, CN II-XII intact Psychiatric exam: Present: normal affect, normal mood Skin exam: Present: other (ulcer L ankle) Course Vital Signs 12/24/21 12/24/21 12/24/21 17:14 18:09 19:00 Temperature 98.1 F Pulse Rate 75 78 78 Respiratory 16 20 20 Rate Blood Pressure 156/78 158/89 150/80 O2 Sat by Pulse 97 99 99 Oximetry 12/24/21 20:19 Temperature Pulse Rate 66 Respiratory 16 Rate Blood Pressure 158/85 O2 Sat by Pulse 98 Oximetry Medical Decision Making - Medical Decision Making Patient is a 61-year-old male presenting with chief complaint of bleeding wound to the left ankle. Patient has ulcerated wound, he has been seen here multiple times for recurrent bleeding of the wound. On presentation bleeding is well- controlled. Wound is prophylactically injected with lidocaine with epi, LET solution is applied, and Gelfoam is placed over the area. Leg is then wrapped. Patient is sleeping way. Ambulating in the room, bleeding does not recur. Follow-up with wound care and vascular surgeon. Follow-up with PCP. Report back to ER with any new or worsening symptoms. Discussed return parameters and answered all questions. Patient conveyed verbal understanding and agreed to the plan. I discussed this case in detail with my attending Dr. Keene. Disposition Clinical Impression: Ulcer of left ankle Disposition: HOME SELF-CARE Condition: Good Instructions (If sedation given, give patient instructions): Chronic Wounds (ED) Additional Instructions: Follow-up with PCP and wound care. Report back to ER with any new or worsening symptoms. Keep the wound clean, dry, and covered. Is patient prescribed a controlled substance at d/c from ED?: No Referrals: [facility] [Primary Care Provider] - 1-2 days Time of Disposition: 20:11
[2021-12-24 20:19] VITALS: BP 158/85; PULSE 66; RESP 16
== END 2021-12-24 20:19 | disposition home or self-care (01) ==
LOC: EC 16:57
DX: R05.9 Cough, unspecified (principal); B97.4 Respiratory syncytial virus as the cause of diseases classified elsewhere; K21.9 Gastro-esophageal reflux disease without esophagitis; Z79.899 Other long term (current) drug therapy; Z88.0 Allergy status to penicillin; Z20.822 Contact with and (suspected) exposure to COVID-19
CPT/HCPCS: 99283

== ENCOUNTER 2022-05-07 14:23 | Inpatient (IN) | payer OTHER ==
--- NOTE | 2022-05-07 15:10 | ED ---
Extremity Problem HPI - General Source: patient, RN notes reviewed Mode of arrival: ambulatory Limitations: no limitations - History of Present Illness MD Complaint: extremity pain, extremity swelling Location: right, lower extremity History of Same: Yes <Katerin Ayala - Last Filed: 05/08/22 06:36> <Juan DavidangelinaKrystyna Brittani - Last Filed: 05/09/22 20:33> - General Chief complaint: Extremity Injury, Lower Stated complaint: rt leg numbness Time Seen by Provider: 05/07/22 14:55 - History of Present Illness Initial comments: This is a 62-year-old male who presents to the emergency department for right leg pain/swelling. Patient states that he has a history of stents in his right leg for arterial occlusion, most recently with Dr. Nuno in 2019. States that when he had it placed that time in 2019, his leg appeared discolored and felt completely numb, which is not the case this time. Today, he had cramping and stiffness to the right leg. It progressed this morning, and when he was at work he felt like his leg was numb and completely stiff. It has since started to feel better, however he does still have numbness in the toes. He does note a substantial history of varicose veins as well. Denies any chest pain or shortness of breath. He has not noticed any discoloration of the leg. He does note that the left leg is painful as well, however he has never been diagnosed with DVTs or arterial occlusions to the left leg. He does however have venous insufficiency to the left leg and poorly healing ulcerations. Denies any fevers, chills, sore throat, cough, dyspnea, chest pain, palpitations, abdominal pain, nausea, vomiting, diarrhea, back pain, or headaches. (Katerin Ayala) - Related Data Previous Rx's Medication Instructions Recorded Aspirin 81 mg PO DAILY tab 05/09/22 Clopidogrel [Plavix] 75 mg PO DAILY #30 tablet 05/09/22 HYDROcodone/APAP 5-325MG [[place] 1 each PO Q4HR PRN #18 tab 05/09/22 5-325] Allergies Allergy/AdvReac Type Severity Reaction Status Date / Time No Known Allergies Allergy Verified 05/07/22 18:36 Review of Systems ROS Other: All systems not noted in ROS Statement are negative. <Katerin Ayala - Last Filed: 05/08/22 06:36> ROS Other: All systems not noted in ROS Statement are negative. <Krystyna Buchanan - Last Filed: 05/09/22 20:33> ROS Statement: Those systems with pertinent positive or pertinent negative responses have been documented in the HPI. Past Medical History Past Medical History: Atrial Fibrillation Additional Past Medical History / Comment(s): alcoholism and smoker, blood clots History of Any Multi-Drug Resistant Organisms: MRSA Date of last positivie culture/infection: 07/05/21 MDRO Source:: Left Ankle Past Surgical History: Tonsillectomy Additional Past Surgical History / Comment(s): stent to rt leg Past Anesthesia/Blood Transfusion Reactions: No Reported Reaction Past Psychological History: Anxiety Smoking Status: Current every day smoker Past Alcohol Use History: None Reported Past Drug Use History: None Reported - Past Family History Mother Family Medical History: Diabetes Mellitus, Hypertension Additional Family Medical History / Comment(s): Family history of varicose veins. Father Family Medical History: CVA/TIA, Myocardial Infarction ([place]) <Katerin Ayala - Last Filed: 05/08/22 06:36> General Exam Limitations: no limitations General appearance: alert, in no apparent distress Head exam: Present: atraumatic, normocephalic, normal inspection Respiratory exam: Present: normal lung sounds bilaterally. Absent: respiratory distress, wheezes, rales, rhonchi, stridor Cardiovascular Exam: Present: regular rate, normal rhythm, normal heart sounds. Absent: systolic murmur, diastolic murmur, rubs, gallop, clicks Extremities exam: Present: other (Mild erythema and multiple varicose veins to the right lower extremity. Nonpalpable DP and TP pulses. Capillary refill 2-3 seconds. ) Neurological exam: Present: alert, oriented X3, CN II-XII intact Psychiatric exam: Present: normal affect, normal mood Skin exam: Present: warm, dry, intact, normal color. Absent: rash <Katerin Ayala - Last Filed: 05/08/22 06:36> Course Vital Signs 05/07/22 05/07/22 05/07/22 14:49 19:25 20:29 Temperature 98.4 F Pulse Rate 75 71 61 Respiratory 18 18 16 Rate Blood Pressure 163/97 183/94 157/93 O2 Sat by Pulse 99 99 99 Oximetry Medical Decision Making - Lab Data Result diagrams: 05/07/22 15:47 05/07/22 15:47 - Radiology Data Radiology results: report reviewed, image reviewed <NavneetaaronDemian whaleyKaterin - Last Filed: 05/08/22 06:36> - Lab Data Result diagrams: 05/07/22 15:47 05/07/22 15:47 <DewayneKrystyna Brittani - Last Filed: 05/09/22 20:33> - Medical Decision Making This is a 62-year-old male who presents to the emergency department for right leg pain. Was pt. sent in by a medical professional or institution? @ -No Did you speak to anyone other than the patient for history? @ -No Did you review nursing and triage notes? @ -Yes, and I agree, it is accurate with regards to the patient's symptoms. Were old charts reviewed? @ -No Differential Diagnosis? @ -Differential Leg Pain: Leg fracture, leg sprain, DVT, PVD, arterial insufficiency, iliac artery aneurysm, cellulitis, compartment syndrome, tendinopathy, nerve entrapment, piriformis syndrome, osteoarthritis, rhabdomyolysis, myositis, cramping from an electrolyte imbalance, this is not meant to be an all inclusive list. U/S interpreted by me (1pt. min.)? @ -Duplex US of the right LE obtained. My interpretation identifies no evidence of a DVT. What testing was considered but not performed? (CT, X-rays, U/S, labs)? Why? @ -None What meds were considered but not given? Why? @ -None Did you discuss the management of the patient with other professionals? @ -Yes, Dr. Lemus, who advised admission and starting the patient on a heparin drip. I then spoke with Dr. Sheehan, who accepts the patient for admission. Did you reconcile home meds? @ -No Was smoking cessation discussed for >3mins.? @ -I discussed smoking cessation for greater than 3 minutes. The risk of smoking were discussed with the patient including but not limited to risks of cancer, stroke, coronary artery disease and COPD. Also discussed with patient were multiple methods of quitting smoking. Lastly we discussed the financial cost of smoking. Was critical care preformed (if so, how long)? @ -No Were there social determinants of health that impacted care today? How? (Homelessness, low income, unemployed, alcoholism, drug addiction, transportation, low edu. Level, literacy, decrease access to med. care, half-way, rehab)? @ -No Was there de-escalation of care discussed even if they declined? (Discuss DNR or withdrawal of care, Hospice)? @ -No What co-morbidities impacted this encounter? (DM, HTN, Smoking, COPD, CAD, Cancer, CVA, Hep., AIDS, mental health diagnosis, sleep apnea, morbid obesity)? @ -Smoking, DM Was patient admitted / discharged? @ -Admitted. Lab work obtained and found to be nonactionable. Duplex ultrasound of the right lower extremity reveals no evidence of a DVT. CT angiogram of the right lower extremity identifies no flow in the femoral artery bypass graft in the medial thigh and no flow in the right superficial femoral artery. Case discussed with Dr. Lemus, vascular surgery, who advised that this is most likely chronic in nature, however we cannot rule out possibility of an acute problem. He advised starting the patient on a heparin drip and admitting him to medicine with consideration of a graft later in the week. Patient started on high intensity heparin protocol and admitted to medicine with vascular consult. Undiagnosed new problem with uncertain prognosis? @ -None Drug Therapy requiring intensive monitoring for toxicity (Heparin, Nitro, Insulin, Cardizem)? @ -None Were any procedures done? @ -None Diagnosis/symptom? @ -Occlusion of right femoral artery Acute, or Chronic, or Acute on Chronic? @ -Acute on chronic Uncomplicated (without systemic symptoms) or Complicated (systemic symptoms)? @ -Complicated Side effects of treatment? @ -None Exacerbation, Progression, or Severe Exacerbation] @ -Severe exacerbation Poses a threat to life or bodily function? @ -Yes Return precautions reviewed in depth, the patient is instructed to return to the emergency department with any new, worsening, or concerning symptoms. Patient verbalized understanding. This case was discussed in detail with the attending ED physician, Dr. Buchanan. Presentation, findings, and treatment plan discussed in detail as well. (Katerin Ayala) - Lab Data Lab Results 05/07/22 05/07/22 05/07/22 Range/Units 15:47 15:47 15:47 WBC 7.4 (3.8-10.6) k/uL RBC 4.83 (4.30-5.90) m/uL Hgb 13.5 (13.0-17.5) gm/dL Hct 41.8 (39.0-53.0) % MCV 86.6 (80.0-100.0) fL MCH 27.9 (25.0-35.0) pg MCHC 32.2 (31.0-37.0) g/dL RDW 17.0 H (11.5-15.5) % Plt Count 193 (150-450) k/uL MPV 7.9 Neutrophils % 74 % Lymphocytes % 17 % Monocytes % 4 % Eosinophils % 2 % Basophils % 1 % Neutrophils # 5.4 (1.3-7.7) k/uL Lymphocytes # 1.3 (1.0-4.8) k/uL Monocytes # 0.3 (0-1.0) k/uL Eosinophils # 0.1 (0-0.7) k/uL Basophils # 0.0 (0-0.2) k/uL Anisocytosis Slight PT 10.0 (9.0-12.0) sec INR 0.9 (<1.2) APTT 25.3 (22.0-30.0) sec Sodium 139 (137-145) mmol/L Potassium 4.9 (3.5-5.1) mmol/L Chloride 105 (98-107) mmol/L Carbon Dioxide 26 (22-30) mmol/L Anion Gap 8 mmol/L BUN 16 (9-20) mg/dL Creatinine 0.94 (0.66-1.25) mg/dL Est GFR (CKD-EPI)AfAm >90 (>60 ml/min/1.73 sqM) Est GFR (CKD-EPI)NonAf 88 (>60 ml/min/1.73 sqM) Glucose 96 (74-99) mg/dL Calcium 9.3 (8.4-10.2) mg/dL Phosphorus 3.4 (2.5-4.5) mg/dL Magnesium 2.4 H (1.6-2.3) mg/dL Total Bilirubin 0.6 (0.2-1.3) mg/dL AST 30 (17-59) U/L ALT 20 (4-49) U/L Alkaline Phosphatase 89 (38-126) U/L Total Protein 7.7 (6.3-8.2) g/dL Albumin 4.7 (3.5-5.0) g/dL Critical Care Time Critical Care Time: Yes <Krystyna Buchanan - Last Filed: 05/09/22 20:33> Critical Care Time: 32 minutes (Krystyna Buchanan) Disposition <Katerin Ayala - Last Filed: 05/08/22 06:36> <Krystyna Buchanan - Last Filed: 05/09/22 20:33> Clinical Impression: Occlusion of femoral artery, Venous insufficiency Disposition: ADMITTED IP TO THIS [facility] Condition: Stable
--- NOTE | 2022-05-07 15:47 | US ---
EXAMINATION TYPE: US venous doppler duplex LE RT DATE OF EXAM: 05/07/2022 3:40 PM COMPARISON: CLINICAL HISTORY: Right leg pain, hx of clots. Hx of leg arterial stents. No redness or swelling. P atient states he has not had this pain since before his arterial stents were placed. Leg discolorati on. Thickened toe nails. On blood thinners. No injury. SIDE PERFORMED: Right TECHNIQUE: The lower extremity deep venous system is examined utilizing real time linear array sonog tisha with graded compression, doppler sonography and color-flow sonography. VESSELS IMAGED: Common Femoral Vein Deep Femoral Vein Greater Saphenous Vein * Femoral Vein Popliteal Vein Small Saphenous Vein * Proximal Calf Veins (* superficial vessels) Right Leg: Negative for DVT. INCIDENTAL FINDING: Plaque visualized in Femoral artery and popliteal artery IMPRESSION: No sign of deep vein thrombosis in the right leg.
[2022-05-07] MEDS ORDERED: RX INFO: IV CONTRAST WAS GIVEN 1 EACH MISC MISCELLANE PRN (15:53)
[2022-05-07 16:20] LABS: Anisocytosis Slight; Basophils % (A) 1 %; Eosinophils # (A) 0.1 k/uL (0-0.7); Eosinophils % (A) 2 %; HCT 41.8 % (39.0-53.0); HGB 13.5 gm/dL (13.0-17.5); Lymphocytes # (A) 1.3 k/uL (1.0-4.8); Lymphocytes % (A) 17 %; MCH 27.9 pg (25.0-35.0); MCHC 32.2 g/dL (31.0-37.0); MCV 86.6 fL (80.0-100.0); Mean Platelet Volume 7.9; Monocytes # (A) 0.3 k/uL (0-1.0); Monocytes % (A) 4 %; Neutrophils # (A) 5.4 k/uL (1.3-7.7); Neutrophils % (A) 74 %; Platelet Count 193 k/uL (150-450); RBC 4.83 m/uL (4.30-5.90); WBC 7.4 k/uL (3.8-10.6)
[2022-05-07 16:29] LABS: ALT 20 U/L (4-49); AST 30 U/L (17-59); African American GFR (CKD) >90 (>60 ml/min/1.73 sqM); Albumin 4.7 g/dL (3.5-5.0); Alkaline Phosphatase 89 U/L (38-126); Anion Gap 8 mmol/L; Blood Urea Nitrogen 16 mg/dL (9-20); Calcium 9.3 mg/dL (8.4-10.2); Carbon Dioxide 26 mmol/L (22-30); Chloride 105 mmol/L (98-107); Glucose 96 mg/dL (74-99); Magnesium 2.4 mg/dL (1.6-2.3); Non-African American GFR(CKD) 88 (>60 ml/min/1.73 sqM); Phosphorus 3.4 mg/dL (2.5-4.5); Potassium 4.9 mmol/L (3.5-5.1); Sodium 139 mmol/L (137-145); Total Bilirubin 0.6 mg/dL (0.2-1.3); Total Protein 7.7 g/dL (6.3-8.2)
[2022-05-07 16:31] LABS: INR 0.9 (<1.2); Partial Thromboplastin Time 25.3 sec (22.0-30.0)
[2022-05-07] MEDS ORDERED: KETOROLAC 15 MG/ML 1 ML VIAL IVP STA (17:02)
--- NOTE | 2022-05-07 17:20 | CT ---
EXAMINATION TYPE: CT angio lower extremity RT DATE OF EXAM: 05/07/2022 COMPARISON: 01/21/2020 HISTORY: Right leg numbness, hx of arterial occlusion CT DLP: 1056.6 mGycm Automated exposure control for dose reduction was used. CONTRAST: Performed with IV Contrast, patient injected with 100 mL of Isovue 370. Images obtained from the lower abdominal aorta to the bottom of the right foot with the IV contrast. There are Three-D postprocessed images. Abdominal aorta is atheromatous. There is irregular plaque formation. No aneurysm. There is arterial flow in the common internal and external iliac arteries bilaterally. There is significant plaque form ation and 50% stenosis at the internal iliac artery origin. There is subtotal occlusion of the mid ri ght internal iliac artery. There is arterial flow in the common femoral artery and the profunda femoris artery. There is occlusion of the right superficial femoral artery near its origin. There is a femoral arter y bypass graft in the medial thigh which does not show any arterial flow. There is collateral flow fr om the branches of the profunda femoris artery with filling of the anterior tibial artery. There is a lso some contrast in the peroneal and posterior tibial artery in the midcalf. There is arterial flow in the anterior tibial artery and dorsalis pedis artery at the foot. There is no evidence of any sign ificant flow in the posterior tibial artery at the ankle. The origin of the right internal iliac gage ry. No flow seen in the popliteal artery. IMPRESSION: Subtotal occlusion of the right internal iliac artery unchanged. There is no flow demonstrated in the right femoral artery graft. No flow seen in the right superficial femoral artery and the popliteal a rtery. Small collateral vessels from the profunda femoris artery fill the anterior and posterior tibi al arteries in the mid calf. Flow is seen in the arteries in the calf are improved compared to old ex am.
[2022-05-07] MEDS ORDERED: HEPARIN SODIUM 1,000 UN/ML (10ML VL) IV ONE (18:37)
[2022-05-07] MEDS ORDERED: HEPARIN SODIUM 1,000 UN/ML (10ML VL) IV PRN (18:37)
[2022-05-07] MEDS ORDERED: ACETAMINOPHEN TAB 325 MG TAB PO PRN (18:45)
[2022-05-07] MEDS ORDERED: ONDANSETRON 4 MG/2 ML VIAL IVP PRN (18:45)
[2022-05-07] MEDS ORDERED: NALOXONE 0.4 MG/ML 1 ML VIAL IV PRN (18:45)
[2022-05-07] MEDS ORDERED: MORPHINE SULFATE 2 MG/ML SYRINGE IV PRN (18:45)
[2022-05-07] MEDS: HEPARIN SOD,PORK IN 0.45% NACL 25,000 UNIT in 0.45% NACL 1 250ML.BAG IV SCH (19:26)
[2022-05-07 20:54] LABS: Glucose,Whole Blood 93 mg/dL (70-110)
--- NOTE | 2022-05-07 21:17 | P.GSCN ---
History of Present Illness Consult date: 05/07/22 Reason for Consult: acute leg ischemia History of present illness: 62-year-old male with history of peripheral arterial disease, previous right lower extremity intervention, stenting of the SFA presents to the emergency department for right leg pain/swelling. He complains of cramping and stiffness to the right leg. It progressed this morning, and when he was at work he felt like his leg was numb and completely stiff. He was seen in the ER and states the foot has since started to feel better. He states he has been unable to ambulate more than 50 feet and has started to have pain at night and is only sleeping a couple of hours a night. He states his foot is still numb and he gets a tingling sensation occassionally in his toes. He does note a substantial history of varicose veins as well and has been diagnosed with venous insuff iciency. He has been seeing Dr. Sams in the wound care center for a venous ulcer on the medial aspect of the ankle. He denies any fevers, chills, chest pain, sore throat, cough, nausea, vomiting, back pain or headaches. Review of Systems All systems: negative (what is mentioned in the PMH or HPI) Past Medical History Past Medical History: Atrial Fibrillation Additional Past Medical History / Comment(s): alcoholism and smoker, blood clots History of Any Multi-Drug Resistant Organisms: MRSA Year Discovered:: 07/05/21 MDRO Source:: Left Ankle Past Surgical History: Tonsillectomy Additional Past Surgical History / Comment(s): stent to rt leg Past Anesthesia/Blood Transfusion Reactions: No Reported Reaction Past Psychological History: Anxiety Smoking Status: Current every day smoker Past Alcohol Use History: None Reported Past Drug Use History: None Reported - Past Family History Mother Family Medical History: Diabetes Mellitus, Hypertension Additional Family Medical History / Comment(s): Family history of varicose veins. Father Family Medical History: CVA/TIA, Myocardial Infarction ([place]) Medications and Allergies Home Medications Medication Instructions Recorded Confirmed Type Ibuprofen [Motrin Ib] 800 mg PO Q8H PRN 05/07/22 05/07/22 History Allergies Allergy/AdvReac Type Severity Reaction Status Date / Time No Known Allergies Allergy Verified 05/07/22 18:36 Surgical - Exam Vital Signs Temp Pulse Resp BP Pulse Ox 98.4 F 75 18 163/97 99 05/07/22 14:49 05/07/22 14:49 05/07/22 14:49 05/07/22 14:49 05/07/22 14:49 - General well developed, well nourished, no distress - Eyes PERRL, normal ocular movement - ENT normal pinna, normal nares - Neck no masses, no bruits, trachea midline - Respiratory normal expansion, normal respiratory effort - Cardiovascular Rhythm: regular - Abdomen Abdomen: soft, non tender - Psychiatric oriented to time, oriented to person, oriented to place, speech is normal left lower extremity with wound dressings in place. Skin discoloration secondary to venous disease. Non palpable dp and pt pulses bilaterally. Slowed capillary refill right toes. Palpable femoral pulse on the right. Palpable femoral and popliteal pulse on the left. Results - Labs 05/07/22 15:47 05/07/22 15:47 Abnormal Lab Results - Last 24 Hours (Table) 05/07/22 05/07/22 Range/Units 15:47 15:47 RDW 17.0 H (11.5-15.5) % Magnesium 2.4 H (1.6-2.3) mg/dL Diabetes panel 05/07/22 Range/Units 15:47 Sodium 139 (137-145) mmol/L Potassium 4.9 (3.5-5.1) mmol/L Chloride 105 (98-107) mmol/L Carbon Dioxide 26 (22-30) mmol/L BUN 16 (9-20) mg/dL Creatinine 0.94 (0.66-1.25) mg/dL Glucose 96 (74-99) mg/dL Calcium 9.3 (8.4-10.2) mg/dL AST 30 (17-59) U/L ALT 20 (4-49) U/L Alkaline Phosphatase 89 (38-126) U/L Total Protein 7.7 (6.3-8.2) g/dL Albumin 4.7 (3.5-5.0) g/dL Calcium panel 05/07/22 Range/Units 15:47 Calcium 9.3 (8.4-10.2) mg/dL Phosphorus 3.4 (2.5-4.5) mg/dL Albumin 4.7 (3.5-5.0) g/dL Pituitary panel 05/07/22 Range/Units 15:47 Sodium 139 (137-145) mmol/L Potassium 4.9 (3.5-5.1) mmol/L Chloride 105 (98-107) mmol/L Carbon Dioxide 26 (22-30) mmol/L BUN 16 (9-20) mg/dL Creatinine 0.94 (0.66-1.25) mg/dL Glucose 96 (74-99) mg/dL Calcium 9.3 (8.4-10.2) mg/dL Adrenal panel 05/07/22 Range/Units 15:47 Sodium 139 (137-145) mmol/L Potassium 4.9 (3.5-5.1) mmol/L Chloride 105 (98-107) mmol/L Carbon Dioxide 26 (22-30) mmol/L BUN 16 (9-20) mg/dL Creatinine 0.94 (0.66-1.25) mg/dL Glucose 96 (74-99) mg/dL Calcium 9.3 (8.4-10.2) mg/dL Total Bilirubin 0.6 (0.2-1.3) mg/dL AST 30 (17-59) U/L ALT 20 (4-49) U/L Alkaline Phosphatase 89 (38-126) U/L Total Protein 7.7 (6.3-8.2) g/dL Albumin 4.7 (3.5-5.0) g/dL Assessment and Plan Assessment: Acute on chronic right lower extremity limb ischemia Right lower extremity claudication, rest pain [place] 4 History of right lower extremity revascularization and stenting. Plan: Reviewed CTA images independently- superficial femoral artery occlusion on the right noted with thrombosed SFA stent. There is reconstitution below knee but difficult to determine exact runoff due to poor imaging. A long discussion with the patient about timing of pain and possible treatment. He states having chronic component but that the pain has worsened recently and therefore recommendations were made to the ER for admission and heparin initiation. He will require catheter directed aortogram and runoff to determine landing zones for possible bypass. Plan for aortogram Sunday or Sunday. Thank you for the consultation.
--- NOTE | 2022-05-08 02:34 | P.HPIM ---
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 he noticed increase claudication over bilateral calves if he even walks short distance. but today woke up noticing these new symptoms, he also reports severe varicose veins , he works long hours standing up. he denies any liver disease, or weight loss. he does have an ulcer over his left ankle and he has been following up with wound clinic . as outpatient he admits to heavy smoking, denies any illicit drugs or heavy alcohol patient also reports severe pain at night , he has not had a quality night time sleep in a week now. denies any chest pain , abd pain , nausea or vomiting , denies any recent travel or hospital stay , denies any history of blood clots. he does not recall his medications, as he did not refil some of them as he does not have access to his primary doctor Review of Systems Pertinent positives as noted in HPI. All other systems were reviewed and are negative Past Medical History Past Medical History: Atrial Fibrillation, Diabetes Mellitus, Hypertension Additional Past Medical History / Comment(s): alcoholism and smoker, blood clots History of Any Multi-Drug Resistant Organisms: MRSA Date of last positivie culture/infection: 07/05/21 MDRO Source:: Left Ankle Past Surgical History: Tonsillectomy Additional Past Surgical History / Comment(s): stent to rt leg Past Anesthesia/Blood Transfusion Reactions: No Reported Reaction Past Psychological History: Anxiety Smoking Status: Current every day smoker Past Alcohol Use History: None Reported Past Drug Use History: None Reported - Past Family History Mother Family Medical History: Diabetes Mellitus, Hypertension Additional Family Medical History / Comment(s): Family history of varicose veins. Father Family Medical History: CVA/TIA, Myocardial Infarction ([place]) Medications and Allergies Home Medications Medication Instructions Recorded Confirmed Type Ibuprofen [Motrin Ib] 800 mg PO Q8H PRN 05/07/22 05/07/22 History Allergies Allergy/AdvReac Type Severity Reaction Status Date / Time No Known Allergies Allergy Verified 05/07/22 18:36 Physical Exam Vitals: Vital Signs Temp Pulse Resp BP Pulse Ox 05/07/22 19:25 71 18 183/94 99 05/07/22 14:49 98.4 F 75 18 163/97 99 Intake and Output 05/07/22 05/07/22 05/07/22 06:59 14:59 22:59 Other: Weight 74.843 kg Constitutional: No acute distress, conversant, pleasant Eyes: Anicteric sclerae, moist conjunctiva, Pupils equal round reactive to light ENMT: NC/AT Oropharynx clear, no erythema, or exudates Neck: Supple, no masses, or JVD No carotid bruits No thyromegaly Lungs: Clear to auscultation Clear to percussion Normal respiratory effort, no accessory muscle use Cardiovascular: Heart regular in rate and rhythm, No murmurs, gallops, or rubs No peripheral edema Abdominal: Soft Nontender, no guarding, rebound or rigidity Abdomen moving with respiration Normoactive bowel sounds No hepatomegaly, No splenomegaly No palpable mass No abdominal wall hernia noted Skin: Normal temperature, tone, texture, turgor No induration No subcutaneous nodules No rash, lesions No ulcers Extremities: dusky looking right foot, significant varicose vein changes with dilated tortuous veins bilaterally in the legs No clubbing only bilateral femoral artery is palpable and symmetrical , bilateral foot arteries detectable using doppler only Radial pulses intact and symmetrical No calf tenderness capillary refill delayed over right foot. ulcer 1X2 over medial left ankle , does not look infected Psychiatric: Alert and oriented to person, place and time Appropriate affect fair judgment Neuro Muscles Strength 5/5 in all 4 extremities Sensation to light touch grossly present throughout , decrease over right foot Cranial nerves II-XII grossly intact Lymphatics: no palpable cervical or supraclavicular lymph nodes Results CBC & Chem 7: 05/07/22 15:47 05/07/22 15:47 Labs: Abnormal Lab Results - Last 24 Hours (Table) 05/07/22 05/07/22 Range/Units 15:47 15:47 RDW 17.0 H (11.5-15.5) % Magnesium 2.4 H (1.6-2.3) mg/dL Assessment and Plan Assessment: 62 year old male with afib , DM , hypertension PAD, presented with increase numbness and tingling in his right foot along with right leg pain I discussed the case with ED doc, and I accepted the admission for further management and vascular surgery evalution Acute on chronic right lower extremity limb ischemia, history of PAD s/p stenting of right SFA vascular surgery consult heparin gtt aspirin daily PO venous doppler US no acute DVT CTA showed thrombosed Right SFA stent pain control reviewed home meds when available monitor neuro vascular bundle exam checks patient counseled strongly to quit smoking , nicotine replacement therapy offered P. afib , patient not aware of his meds continue to monitor ASA 81 mg daily PO hypertension , uncontrolled secondary to non compliance unknown home meds DM check A1c insulin sliding scale DVT PPX on heparin gtt full code
[2022-05-08] MEDS: HYDROcodone/APAP 5-325MG 1 EACH TAB PO PRN ×4 (06:27→23:37)
[2022-05-08 06:38] LABS: Glucose,Whole Blood 109 mg/dL (70-110)
[2022-05-08] MEDS: INSULIN ASPART (NovoLOG) 100 UNIT/ML VIAL SQ SCH ×4 (06:51→20:21)
[2022-05-08] MEDS: ASPIRIN 81 MG PO SCH (09:10)
--- NOTE | 2022-05-08 11:21 | P.PN ---
Subjective Progress Note Date: 05/08/22 Principal diagnosis: Right lower extremity SFA occlusion with thrombosis stent Patient is seen and examined today for follow-up. States pain is somewhat improved. He remains on IV heparin drip. Has some numbness tingling down right lower extremity on however has good mobility. No acute changes through the night. He's been afebrile. Objective - Vital Signs Vital signs: Vital Signs Temp 98.0 F 05/08/22 08:00 Pulse 68 05/08/22 08:00 Resp 16 05/08/22 08:00 BP 171/78 05/08/22 08:00 Pulse Ox 95 05/08/22 08:00 FiO2 Intake & Output 05/07/22 05/08/22 05/08/22 18:59 06:59 18:59 Intake Total 1808.608 240 Output Total 600 Balance 1208.608 240 Weight 74.843 kg 74.843 kg Intake: Intake, IV Titration 188.608 Amount Heparin Sod,Pork in 0.45% 188.608 NaCl 25,000 unit In 0.45 % NaCl 1 250ml.bag @ 18 UNITS/KG/HR 13.472 mls/hr IV .[id number] [facility] Rx#: [id number] Oral 1620 240 Output: Urine 600 Other: Voiding Method Toilet Toilet Urinal Urinal - Exam General appearance: The patient is alert, oriented, appears in no acute distress. HET: Head is normocephalic and atraumatic. Pupils are equal and reactive. Neck: Supple without lymphadenopathy. Trachea midline. No audible carotid bruit. Heart: Regular. Lungs: Equal expansion, normal respiratory effort. Abdomen: Soft, nontender, nondistended. Extremities: Skin discoloration due to venous disease. No edema bilaterally. Bilateral lower extremities warm to the touch. Sensorimotor intact. Left lower extremity with venous stasis wound to the medial aspect near ankle. Nonpalpable DP and PT pulses bilaterally. Neurological: No focal deficits. Strength and sensation are grossly intact. - Labs CBC & Chem 7: 05/07/22 15:47 05/07/22 15:47 Labs: Abnormal Lab Results - Last 24 Hours (Table) 05/07/22 05/07/22 05/08/22 Range/Units 15:47 15:47 01:49 RDW 17.0 H (11.5-15.5) % APTT 79.7 H (22.0-30.0) sec Hemoglobin A1c (0.0-6.0) % Magnesium 2.4 H (1.6-2.3) mg/dL 05/08/22 05/08/22 Range/Units 06:10 06:10 RDW (11.5-15.5) % APTT 78.4 H (22.0-30.0) sec Hemoglobin A1c 6.1 H (0.0-6.0) % Magnesium (1.6-2.3) mg/dL Assessment and Plan Assessment: 1. Acute on chronic right lower extremity limb ischemia 2. Right lower extremity claudication, rest pain [place] 4 3. History of right lower extremity revascularization and stenting. 4. Venous stasis wound left lower extremity Plan: 1. Continue heparin drip for now, discontinue 4 hours prior to procedure 2. Patient scheduled for aortogram tomorrow morning 3. Nothing by mouth after midnight 4. Continue local wound care Thank you for this consultation, we will continue to follow. The impression and plan of care has been dictated as directed. I performed a history and examination of this patient, discussed the same with the dictator. I agree with the dictator's note ,documented as a scribe. Any additional findings or plans will be noted.
[2022-05-08 11:52] LABS: Glucose,Whole Blood 91 mg/dL (70-110)
--- NOTE | 2022-05-08 12:10 | P.PN ---
Subjective Progress Note Date: 05/08/22 62 year old male with DM, PAD, hypertension, Afib initially presented to the ED for sudden onset numbness and tingling of his right lower extremity. He reports increased claudication over bilateral calves while walking short distances. He has a history of PAD requiring stenting in the past. He is a heavy smoker. In the ED, his BP was noted to be elevated at 183/94. Vital signs were otherwise stable. CBC was relatively benign. Coagulation panel was negative. CMP was negative. Magnesium was 2.4. Venous Doppler negative for DVT. CT angiogram of the right lower extremity showed subtotal occlusion of the right internal iliac artery, no flow demonstrated in the right femoral artery graft, no flow in the right superficial femoral artery and the popliteal artery. Patient was admitted for further management of symptoms. Vascular surgery was consulted and recommended starting heparin drip and aortogram which is scheduled for 05/09. Patient was seen and examined this morning. No acute events overnight. Patient reports well-controlled pain in his right lower extremity. He denies any chest pain, shortness breath or palpitations prior no nausea or vomiting. No fever or chills. General: non toxic, no distress, appears at stated age Derm: warm, dry Head: atraumatic, normocephalic, symmetric Eyes: EOMI, no lid lag, anicteric sclera Mouth: no lip lesion, mucus membranes moist Cardiovascular: S1S2 reg, no murmur Lungs: CTA bilateral, no rhonchi, no rales , no accessory muscle use Abdominal: soft, nontender to palpation, no guarding, no appreciable organomegaly Ext: no gross muscle atrophy, no edema, no contractures, varicose veins bilateral lower extremity, left ankle ulcer dressed clean dry and intact Neuro: no focal neuro deficits Psych: Alert, oriented, appropriate affect #Acute on chronic right lower extremity limb ischemia with history of PAD s/p stenting of right SFA #Chronic ulcer, non healing left ankle #Proximal atrial fibrillation #Hypertension #Diabetes mellitus #Tobacco smoker Based on my assessment of this patient, this patient meets a high complexity level of care. I have reviewed the following outbound sales consultant notes: Vascular surgery note 05/08, continue heparin drip for now, discontinue 4 hours prior to procedure, scheduled for aortogram tomorrow morning I have reviewed the results of the following tests: APTT 70.4. Hemoglobin A1c 6.1. I have ordered the following tests: PTT ordered for tomorrow morning. I have discussed the care of this patient with the following independent historian: None. I have independently interpreted the following test below: None. I have discussed the management of this patient with the following physician: None. This patient has a high risk of morbidity due to the following reasons: Patient has a PAD with severe exacerbation or progression of disease which poses a threat to life or bodily function. He is acute on chronic right lower extremity limb ischemia with history of PAD s/p stenting of right SFA. Patient was restarted on heparin drip at 18 units per kilogram per hour. He is also on aspirin 81 mg by mouth daily. Pain is controlled with morphine 2 mg IV every 4 hours as needed for severe pain. Plans for aortogram tomorrow with vascular surgery. Objective - Vital Signs Vital signs: Vital Signs Temp 98.0 F 05/08/22 08:00 Pulse 68 05/08/22 08:00 Resp 16 05/08/22 08:00 BP 171/78 05/08/22 08:00 Pulse Ox 95 05/08/22 08:00 FiO2 Intake & Output 05/07/22 05/08/22 05/08/22 18:59 06:59 18:59 Intake Total 1808.608 240 Output Total 600 Balance 1208.608 240 Weight 74.843 kg 74.843 kg Intake: Intake, IV Titration 188.608 Amount Heparin Sod,Pork in 0.45% 188.608 NaCl 25,000 unit In 0.45 % NaCl 1 250ml.bag @ 18 UNITS/KG/HR 13.472 mls/hr IV .[id number] [facility] Rx#: [id number] Oral 1620 240 Output: Urine 600 Other: Voiding Method Toilet Toilet Urinal Urinal - Labs CBC & Chem 7: 05/07/22 15:47 05/07/22 15:47 Labs: Abnormal Lab Results - Last 24 Hours (Table) 05/07/22 05/07/22 05/08/22 Range/Units 15:47 15:47 01:49 RDW 17.0 H (11.5-15.5) % APTT 79.7 H (22.0-30.0) sec Hemoglobin A1c (0.0-6.0) % Magnesium 2.4 H (1.6-2.3) mg/dL 05/08/22 05/08/22 Range/Units 06:10 06:10 RDW (11.5-15.5) % APTT 78.4 H (22.0-30.0) sec Hemoglobin A1c 6.1 H (0.0-6.0) % Magnesium (1.6-2.3) mg/dL
[2022-05-08] MEDS: NICOTINE 21MG/24HR PATCH TRANSDERM SCH (13:04)
[2022-05-08] MEDS: HEPARIN SOD,PORK IN 0.45% NACL 25,000 UNIT in 0.45% NACL 1 250ML.BAG IV SCH (14:37)
[2022-05-08 16:37] LABS: Glucose,Whole Blood 89 mg/dL (70-110)
[2022-05-08 20:33] LABS: Glucose,Whole Blood 81 mg/dL (70-110)
[2022-05-09 05:46] LABS: Glucose,Whole Blood 91 mg/dL (70-110)
[2022-05-09] MEDS: INSULIN ASPART (NovoLOG) 100 UNIT/ML VIAL SQ SCH ×2 (06:02→11:49)
[2022-05-09] MEDS ORDERED: fentaNYL (PF) 50 MCG/ML 2 ML AMP IVP ONE (09:12)
[2022-05-09] MEDS ORDERED: MIDAZOLAM 2 MG/2 ML VIAL IVP ONE (09:12)
[2022-05-09] MEDS ORDERED: LIDOCAINE 1% INJ 10MG/ML (20 ML MDV) SQ ONE (09:13)
[2022-05-09] MEDS ORDERED: SODIUM CHLORIDE 0.9% 1,000 ML IV ONE (09:18)
[2022-05-09] MEDS ORDERED: IOPAMIDOL-370 100ML BTL INJ ONE ×2 (09:34)
--- NOTE | 2022-05-09 10:02 | IR ---
EXAMINATION TYPE: IR angio abdominal w runoff DATE OF EXAM: 05/09/2022 COMPARISON: NONE HISTORY: Fluoroscopy time. Fluoroscopy was provided to the referring clinician.
[2022-05-09] MEDS: HEPARIN SOD,PORK IN 0.45% NACL 25,000 UNIT in 0.45% NACL 1 250ML.BAG IV SCH (10:53)
[2022-05-09] MEDS: ASPIRIN 81 MG PO SCH (11:48)
[2022-05-09 11:49] LABS: Glucose,Whole Blood 150 mg/dL (70-110)
[2022-05-09] MEDS: NICOTINE 21MG/24HR PATCH TRANSDERM SCH (11:51)
[2022-05-09 16:02] VITALS: BP 162/92; PULSE 65; RESP 16; TEMP 98.2
[2022-05-09 16:19] LABS: Glucose,Whole Blood 85 mg/dL (70-110)
--- NOTE | 2022-05-09 16:29 | P.DS ---
Providers Date of admission: 05/07/22 18:52 Expected date of discharge: 05/09/22 Attending physician: Dora Sheehan DO Consults: 05/07/22 18:45 Consult Physician Urgent Consulting Provider: Chris Lemus Consult Reason/Comments: Right leg arterial occlusion Do you want consulting provider notified?: Already Contacted Primary care physician: [facility] Hospital Course: Discharge Diagnosis: Acute on chronic right lower extremity limb ischemia Chronic left lower extremity ulceration Peripheral arterial disease Paroxysmal atrial fibrillation Hypertension Diabetes mellitus Nicotine dependence Hospital Course: Patient is a very pleasant 62-year-old male with a past medical history of peripheral arterial disease, chronic ulcers, paroxysmal atrial fibrillation, hypertension, diabetes mellitus, and nicotine dependence. He presented to the emergency department on 05/07/22 for chief complaint of worsening pain/claudication of bilateral lower extremities.patient was started on heparin infusion and admitted under our services with consult to vascular surgery. CBC, coags, and CMP were unremarkable. Patient underwent CTA right lower extremity which revealed subtotal occlusion of the right internal iliac artery unchanged with no flow demonstrated in the right femoral artery graft and no flow seen in the right superficial femoral artery and the popliteal artery with small collateral vessels from the profunda femoris artery filling the anterior and pos terior tibial arteries in the mid calf. Venous Doppler of right lower extremity was completed and negative for DVT reporting plaque visualized and femoral artery and popliteal artery. Patient was evaluated by vascular surgery and underwent a angiogram. Discussed case with vascular surgery, patient was taken off of heparin and started on Plavix and to be discharged from hospital this evening and has been instructed to follow-up in the office with Dr. Nuno tomorrow morning for vein grafting with plans for bypass likely next week. Discussed this plan with patient and all questions answered at this time. Medically, patient is stable for discharge. Prescription sent for Plavix and Bittinger. Patient encouraged on smoking cessation and to follow-up as directed and scheduled outpatient with vascular surgeon tomorrow morning. Physical Exam: Patient seen and examined at bedside. Vital signs reviewed and stable. General: Nontoxic, no distress and appears stated age. Derm: Skin warm and dry, normal coloration for ethnicity. Head: Atraumatic, normocephalic and symmetric. Eyes: EOMs intact, no lid lag, and anicteric sclera Mouth: no lip lesions, mucus membranes moist Cardiovascular: regular rate and rhythm with normal S1S2, systolic murmur, positive posterior tibial pulses bilaterally, and cap refill < 2 seconds. Lungs: Respirations even, regular, and unlabored on room air. Lungs CTA bilaterally, no rhonchi, no rales, no wheezing, and no accessory muscle usage. Abdominal: soft, nontender to palpation, no guarding, no appreciable o rganomegaly Ext: Movement intact and sensation intact. Venous discoloration of bilateral lower extremities with chronic venous ulcer left lower extremity. Neuro: Speech clear, face symmetrical and CN II-XII grossly intact with no noted focal neuro deficits Psych: Alert and oriented to person, place, time, and situation. Appropriate and pleasant affect. A total of 33 minutes of time were spent preparing this complex discharge summary. Pt was discharged on 05/09/22 at 4:13 PM Patient was seen independently by Nurse Practitioner. This document was prepared using [place] dictation software. Please allow for errors in lace paper machine operator while rare they do occur. Tom Awad NP rendered care for this patient independently, reviewed the findings and plan as documented in the note above. I did not physically speak with or examine the patient on this date. Patient Condition at Discharge: Stable Plan - Discharge Summary Discharge Rx Participant: Yes New Discharge Prescriptions: New Clopidogrel [Plavix] 75 mg PO DAILY #30 tablet HYDROcodone/APAP 5-325MG [[place] 5-325] 1 each PO Q4HR PRN #18 tab PRN Reason: Moderate Pain (Scale 4 To 6) Aspirin 81 mg PO DAILY tab Discontinued Ibuprofen [Motrin Ib] 800 mg PO Q8H PRN PRN Reason: Pain Discharge Medication List Aspirin 81 mg PO DAILY tab 05/09/22 [Rx] Clopidogrel [Plavix] 75 mg PO DAILY #30 tablet 05/09/22 [Rx] HYDROcodone/APAP 5-325MG [[place] 5-325] 1 each PO Q4HR PRN #18 tab 05/09/22 [Rx] Follow up Appointment(s)/Referral(s): Karolina Nuno DO [STAFF PHYSICIAN] - 05/10/22 11:[address] [facility] [Primary Care Provider] - 1-2 days Patient Instructions/Handouts: Clopidogrel (By mouth), Peripheral Artery Disease (DC), Venous Insufficiency (DC), Chronic Wounds (DC) Activity/Diet/Wound Care/Special Instructions: Avoid heavy lifting greater than 10 lbs , pushing, pulling, straining, flights of stairs for three days. ok to shower tomorrow but no baths, pools, soaking in tubs for three days to avoid risk of infection. signs of infection ie: fever, rash, drainage from puncture site, swelling contact doctor or return to ER immediately. Heavy bleeding from puncture site apply firm direct pressure and return to ER. Do not attempt to drive self. low sodium/low fat diet It is very important to follow up as instructed with Vascular Surgeon, Dr. Nuno tomorrow in her office for vein mapping as we discussed with tentative plan for bypass next week. Discharge Disposition: HOME SELF-CARE
--- NOTE | 2022-05-26 13:04 | P.OP ---
Date of Procedure: 05/09/22 Preoperative Diagnosis: Bilateral lower extremity claudication and rest pain Postoperative Diagnosis: Bilateral lower extremity claudication Bilateral SFA occlusion Right Popliteal artery occlusion AAA Procedure(s) Performed: Aortagram with runoff Right radial artery ultrasound guided access Conscious sedation x Anesthesia: local Surgeon: Chris Lemus Pathology: none sent Condition: stable Disposition: PACU Indications for Procedure: 62 year old gentleman with history of claudication who presented to the office for worsening symptoms and now having rest pain. He underwent arterial Doppler which demonstrated a decrease in flow to the right lower extremity. He does have a history of SFA stenting and would benefit from further evaluation. He presents today for aortogram with runoff. Operative Findings: Infrarenal AAA Bilateral SFA occlusions Bilateral 2 vessel runoff to the ankle. Description of Procedure: Operative narrative: After written informed consent was obtained the patient all risks benefits competitions were described the patient is brought to the [facility] and laid in a supine position. The area of the right wrist was prepped and draped in the usual sterile fashion. Local anesthesia with moderate sedation was performed with continuous pulse ox monitoring and EKG monitoring. Utilizing ultrasound the right radial artery was visualized and shown to be patent without any significant plaque. Utilizing a multipurpose needle under ultrasound guidance the artery was accessed. Guidewire was placed followed by a 5-[place]izen [place] sheath. 035 Glidewire was then placed into the aorta followed by pigtail catheter. Angiogram was then obtained of the aorta. Catheter was then placed at the bifurcation and lower extremity runoffs were obtained. Once completed all guidewires, catheters and sheaths were removed and pressure was placed for hemostasis. Patient tolerated procedure well was sent to PACU for recovery
== END 2022-05-09 18:14 | disposition home or self-care (01) | DRG 206 ==
LOC: EC 14:23 → 3SCARD 18:52
PROVIDERS: ADMIT Internal Medicine; ATTEND Internal Medicine
PROC: B41D1ZZ Fluoroscopy of Aorta and Bilateral Lower Extremity Arteries using Low Osmolar Contrast (ICD-10-PCS; principal; 2022-05-09 09:00)
DX: T82.868A Thrombosis due to vascular prosthetic devices, implants and grafts, initial encounter (principal); E11.621 Type 2 diabetes mellitus with foot ulcer; L97.529 Non-pressure chronic ulcer of other part of left foot with unspecified severity; F10.20 Alcohol dependence, uncomplicated; F41.9 Anxiety disorder, unspecified; F17.210 Nicotine dependence, cigarettes, uncomplicated; I10 Essential (primary) hypertension; I48.0 Paroxysmal atrial fibrillation; Z79.01 Long term (current) use of anticoagulants; I70.201 Unspecified atherosclerosis of native arteries of extremities, right leg; I74.3 Embolism and thrombosis of arteries of the lower extremities; I74.5 Embolism and thrombosis of iliac artery; I87.2 Venous insufficiency (chronic) (peripheral); I87.8 Other specified disorders of veins; L97.309 Non-pressure chronic ulcer of unspecified ankle with unspecified severity; Y83.1 Surgical operation with implant of artificial internal device as the cause of abnormal reaction of the patient, or of later complication, without mention of misadventure at the time of the procedure; Z79.02 Long term (current) use of antithrombotics/antiplatelets; Z79.82 Long term (current) use of aspirin; Z82.49 Family history of ischemic heart disease and other diseases of the circulatory system; Z83.3 Family history of diabetes mellitus; Z91.199 Patient's noncompliance with other medical treatment and regimen due to unspecified reason
CPT/HCPCS: 36200; 36415; 75625; 75716; 76937; 80053; 83036; 83735; 84100; 85025; 85610; 85730; 96365; 96375; 99285; 99406

== ENCOUNTER 2022-05-13 14:55 | Inpatient (IN) | payer OTHER ==
--- NOTE | 2022-05-13 15:19 | ED ---
General Adult HPI - General Chief complaint: Extremity Problem,Nontraumatic Stated complaint: Lower leg pain Time Seen by Provider: 05/13/22 15:15 Source: patient Mode of arrival: wheelchair Limitations: no limitations - History of Present Illness Initial comments: Patient presents to the ED complaining of having increasing pain and purple discoloration to his right medial ankle region, as well as numbness along the sole of his right foot and his right toes over the past 5 days or so. Patient states that he was discharged from the hospital 5 days ago after being admitted for similar symptoms. Patient states that he was found to have occlusions of arteries in his right leg at that time, and he states that he is being scheduled to have a vascular bypass procedure. Patient denies trauma or injury, fever or chills, headache, focal weakness, chest pain, dyspnea, palpitations, dizziness, abdominal pain, nausea/vomiting, dysuria or urinary symptoms, decreased urine output, or any other symptoms or complaints. Patient states that the only antic oagulant medication that he is currently taking is a daily baby aspirin. - Related Data Previous Rx's Medication Instructions Recorded Aspirin 81 mg PO DAILY tab 05/09/22 Clopidogrel [Plavix] 75 mg PO DAILY #30 tablet 05/09/22 HYDROcodone/APAP 5-325MG [[place] 1 each PO Q4HR PRN #18 tab 05/09/22 5-325] Allergies Allergy/AdvReac Type Severity Reaction Status Date / Time No Known Allergies Allergy Verified 05/13/22 15:03 Review of Systems ROS Statement: Those systems with pertinent positive or pertinent negative responses have been documented in the HPI. ROS Other: All systems not noted in ROS Statement are negative. Past Medical History Past Medical History: Atrial Fibrillation, Deep Vein Thrombosis (DVT) Additional Past Medical History / Comment(s): alcoholism and smoker, blood clots History of Any Multi-Drug Resistant Organisms: MRSA Date of last positivie culture/infection: 07/05/21 MDRO Source:: Left Ankle Past Surgical History: Heart Catheterization, Tonsillectomy Additional Past Surgical History / Comment(s): stent to rt leg Past Anesthesia/Blood Transfusion Reactions: No Reported Reaction Past Psychological History: Anxiety Smoking Status: Current every day smoker Past Alcohol Use History: None Reported Past Drug Use History: None Reported - Past Family History Mother Family Medical History: Diabetes Mellitus, Hypertension Additional Family Medical History / Comment(s): Family history of varicose veins. Father Family Medical History: CVA/TIA, Myocardial Infarction ([place]) General Exam Limitations: no limitations General appearance: alert, in no apparent distress Head exam: Present: atraumatic, normocephalic Eye exam: Present: normal appearance, EOMI ENT exam: Present: mucous membranes moist Respiratory exam: Present: normal lung sounds bilaterally. Absent: respiratory distress, wheezes, rales, rhonchi, stridor Cardiovascular Exam: Present: regular rate, normal rhythm, normal heart sounds, other (No right DP or PT pulse is palpable; I am unable to obtain Doppler signal of right DP or PT pulse; patient has brisk capillary refill in right foot; patient's right foot is warm to touch) GI/Abdominal exam: Present: soft. Absent: distended, tenderness, guarding Extremities exam: Present: other (Tenderness and ecchymosis is noted along the right medial ankle region with varicosities noted). Absent: pedal edema, calf tenderness Back exam: Absent: tenderness Neurological exam: Present: alert, oriented X3, CN II-XII intact, other (Decreased sensation to light touch along sole of right foot and right toes; 5/5 strength in right lower extremity/foot) Psychiatric exam: Present: normal affect, normal mood Skin exam: Present: warm, dry, intact Course Vital Signs 05/13/22 14:59 Temperature 97.8 F Pulse Rate 81 Respiratory 20 Rate Blood Pressure 180/91 O2 Sat by Pulse 98 Oximetry - Reevaluation(s) Reevaluation #1: 05/13/22 17:25 Case, H&P and test results were discussed with Dr. Nuno (vascular surgery). She recommends starting the patient on a heparin drip and admitting the patient to the hospital for preoperative clearance and vascular bypass surgery scheduling. She has no further recommendations at this time. 05/13/22 17:37 Case, H&P, test results, ED management and my discussion with Dr. Nuno as above were discussed with Dr. Paredes who is currently in the ED. He accepts hospital admission. He has no further recommendations at this time. 05/13/22 17:41 Patient denies development of any new symptoms while in the ED. Patient is aware of his test results and my discussions as above. Patient agrees with hosp ital admission at this time. EKG Findings - EKG Comments: EKG Findings:: ED physician interpretation: Normal sinus rhythm, ventricular rate of 67 bpm, no ectopy, right bundle branch block, left anterior fascicular block, normal ND interval, QRS duration of 149 ms, normal QT interval, voltage criteria for LVH, normal axis, no significant change when compared to 01/21/2020 EKG Medical Decision Making - Medical Decision Making Was pt. sent in by a medical professional or institution (LADAN Soot, [employer], urgent care, hospital, or [facility]...) When possible be specific @ -[No] Did you speak to anyone other than the patient for history (EMS, parent, family, police, friend...)? What history was obtained from this source @ -[No] Did you review nursing and triage notes (agree or disagree)? Why? @ -[I reviewed and agree with nursing and triage notes] Were old charts reviewed (outside hosp., previous admission, EMS record, old EKG, old radiological studies, urgent care reports/EKG's, [facility] records)? Report findings @ -[No old charts were reviewed] Differential Diagnosis (chest pain, altered mental status, abdominal pain women, abdominal pain men, vaginal bleeding, weakness, fever, dyspnea, syncope, headache, dizziness, GI bleed, back pain, seizure, CVA, palpatations, mental health, musculoskeletal)? @ -Leg pain, paresthesias, peripheral vascular disease, vascular occlusion, ischemic lower extremity, DVT, muscle strain, neuropathy, radiculopathy EKG interpreted by me (3pts min.). @ -[As above] X-rays interpreted by me (1pt min.). @ -[None done] CT interpreted by me (1pt min.). @ -[None done] U/S interpreted by me (1pt. min.). @ -No What testing was considered but not performed or refused? (CT, X-rays, U/S, labs)? Why? @ -[None] What meds were considered but not given or refused? Why? @ -[None] Did you discuss the management of the patient with other professionals (professionals i.e. LADAN Soto, [employer] CONSULTANT, lab, RT, psych nurse, social studies department chair, ware finisher, teacher, chief risk officer, immigration case worker)? Give summary @ -[As above] Was smoking cessation discussed for >3mins.? @ -[No] Was critical care preformed (if so, how long)? @ -[No] Were there social determinants of health that impacted care today? How? (Homelessness, low income, unemployed, alcoholism, drug addiction, transportation, low edu. Level, literacy, decrease access to med. care, fci, rehab)? @ -[No] Was there de-escalation of care discussed even if they declined (Discuss DNR or withdrawal of care, Hospice)? DNR status @ -[No] What co-morbidities impacted this encounter? (DM, HTN, Smoking, COPD, CAD, Cancer, CVA, ARF, Chemo, Hep., AIDS, mental health diagnosis, sleep apnea, morbid obesity)? @ -[Peripheral vascular disease] Was patient admitted / discharged? Hospital course, mention meds given and route, prescriptions, significant lab abnormalities, going to OR and other pertinent info. @ -[Patient reports having increasing right lower extremity pain and paresthesias since being discharged from the hospital earlier in the week. Patient does not have palpable or dopplerable right DP or PT pulses, but he does have brisk cap refill in his right foot and has a warm right foot. I do not suspect acute ischemia. Patient's labs are fairly unremarkable, including a normal lactic acid level. Patient's case was discussed with Dr. Nuno (vascular surgery), and she has recommended starting the patient on a heparin IV drip and admitting the patient to the hospital for preoperative clearance and vascular bypass surgery scheduling. Dr. Paredes has accepted hospital admission. Will admit patient to the hospital at this time. Patient agrees with this plan.] Undiagnosed new problem with uncertain prognosis? @ -[No] Drug Therapy requiring intensive monitoring for toxicity (Heparin, Nitro, Insulin, Cardizem)? @ -[Patient was started on a heparin IV drip in the ED per Dr. Nuno's (vascular surgery) recommendation.] Were any procedures done? @ -[No] Diagnosis/symptom? @ -[Right lower extremity peripheral vascular disease, pain and paresthesias] Acute, or Chronic, or Acute on Chronic? @ -[Acute on chronic] Uncomplicated (without systemic symptoms) or Complicated (systemic symptoms)? @ -[Uncomplicated] Side effects of treatment? @ -[No] Exacerbation, Progression, or Severe Exacerbation? @ -[No] Poses a threat to life or bodily function? How? (Chest pain, [place], [place], pneumonia, PE, COPD, DKA, ARF, appy, cholecystitis, CVA, Diverticulitis, Homicidal, Suicidal, threat to staff... and all critical care pts) @ -[No] - Lab Data Result diagrams: 05/13/22 15:37 05/13/22 15:37 Lab Results 05/13/22 05/13/22 05/13/22 Range/Units 15:37 15:37 15:37 WBC 6.7 (3.8-10.6) k/uL RBC 4.59 (4.30-5.90) m/uL Hgb 12.7 L (13.0-17.5) gm/dL Hct 39.8 (39.0-53.0) % MCV 86.8 (80.0-100.0) fL MCH 27.7 (25.0-35.0) pg MCHC 31.9 (31.0-37.0) g/dL RDW 17.2 H (11.5-15.5) % Plt Count 211 (150-450) k/uL MPV 7.8 Neutrophils % 70 % Lymphocytes % 21 % Monocytes % 4 % Eosinophils % 3 % Basophils % 0 % Neutrophils # 4.7 (1.3-7.7) k/uL Lymphocytes # 1.4 (1.0-4.8) k/uL Monocytes # 0.3 (0-1.0) k/uL Eosinophils # 0.2 (0-0.7) k/uL Basophils # 0.0 (0-0.2) k/uL Anisocytosis Slight PT 9.8 (9.0-12.0) sec INR 0.9 (<1.2) APTT 25.9 (22.0-30.0) sec Sodium 137 (137-145) mmol/L Potassium 4.8 (3.5-5.1) mmol/L Chloride 101 (98-107) mmol/L Carbon Dioxide 28 (22-30) mmol/L Anion Gap 8 mmol/L BUN 17 (9-20) mg/dL Creatinine 1.26 H (0.66-1.25) mg/dL Est GFR (CKD-EPI)AfAm 71 (>60 ml/min/1.73 sqM) Est GFR (CKD-EPI)NonAf 61 (>60 ml/min/1.73 sqM) Glucose 99 (74-99) mg/dL Plasma Lactic Acid Juancarlos (0.7-2.0) mmol/L Calcium 9.1 (8.4-10.2) mg/dL Total Bilirubin 0.5 (0.2-1.3) mg/dL AST 41 (17-59) U/L ALT 23 (4-49) U/L Alkaline Phosphatase 78 (38-126) U/L Total Protein 7.1 (6.3-8.2) g/dL Albumin 4.2 (3.5-5.0) g/dL 05/13/22 Range/Units 15:37 WBC (3.8-10.6) k/uL RBC (4.30-5.90) m/uL Hgb (13.0-17.5) gm/dL Hct (39.0-53.0) % MCV (80.0-100.0) fL MCH (25.0-35.0) pg MCHC (31.0-37.0) g/dL RDW (11.5-15.5) % Plt Count (150-450) k/uL MPV Neutrophils % % Lymphocytes % % Monocytes % % Eosinophils % % Basophils % % Neutrophils # (1.3-7.7) k/uL Lymphocytes # (1.0-4.8) k/uL Monocytes # (0-1.0) k/uL Eosinophils # (0-0.7) k/uL Basophils # (0-0.2) k/uL Anisocytosis PT (9.0-12.0) sec INR (<1.2) APTT (22.0-30.0) sec Sodium (137-145) mmol/L Potassium (3.5-5.1) mmol/L Chloride (98-107) mmol/L Carbon Dioxide (22-30) mmol/L Anion Gap mmol/L BUN (9-20) mg/dL Creatinine (0.66-1.25) mg/dL Est GFR (CKD-EPI)AfAm (>60 ml/min/1.73 sqM) Est GFR (CKD-EPI)NonAf (>60 ml/min/1.73 sqM) Glucose (74-99) mg/dL Plasma Lactic Acid Juancarlos 1.6 (0.7-2.0) mmol/L Calcium (8.4-10.2) mg/dL Total Bilirubin (0.2-1.3) mg/dL AST (17-59) U/L ALT (4-49) U/L Alkaline Phosphatase (38-126) U/L Total Protein (6.3-8.2) g/dL Albumin (3.5-5.0) g/dL - Radiology Data Right lower extremity venous duplex ultrasound: No evidence of deep vein thrombosis in the right leg. Disposition Clinical Impression: Peripheral vascular disease, Paresthesia of right foot, Pain of right lower extremity Disposition: ADMITTED IP TO THIS [facility] Condition: Stable Is patient prescribed a controlled substance at d/c from ED?: No Referrals: [facility] [Primary Care Provider] - 1-2 days Time of Disposition: 17:37
[2022-05-13 16:12] LABS: Anisocytosis Slight; Basophils % (A) 0 %; Eosinophils # (A) 0.2 k/uL (0-0.7); Eosinophils % (A) 3 %; HCT 39.8 % (39.0-53.0); HGB 12.7 gm/dL (13.0-17.5); Lymphocytes # (A) 1.4 k/uL (1.0-4.8); Lymphocytes % (A) 21 %; MCH 27.7 pg (25.0-35.0); MCHC 31.9 g/dL (31.0-37.0); MCV 86.8 fL (80.0-100.0); Mean Platelet Volume 7.8; Monocytes # (A) 0.3 k/uL (0-1.0); Monocytes % (A) 4 %; Neutrophils # (A) 4.7 k/uL (1.3-7.7); Neutrophils % (A) 70 %; Platelet Count 211 k/uL (150-450); RBC 4.59 m/uL (4.30-5.90); RDW 17.2 % (11.5-15.5); WBC 6.7 k/uL (3.8-10.6)
[2022-05-13 16:17] LABS: INR 0.9 (<1.2); Prothrombin Time 9.8 sec (9.0-12.0)
[2022-05-13 16:18] LABS: Partial Thromboplastin Time 25.9 sec (22.0-30.0)
[2022-05-13 16:34] LABS: Albumin 4.2 g/dL (3.5-5.0); Calcium 9.1 mg/dL (8.4-10.2); Potassium 4.8 mmol/L (3.5-5.1); Total Bilirubin 0.5 mg/dL (0.2-1.3); Total Protein 7.1 g/dL (6.3-8.2)
--- NOTE | 2022-05-13 17:24 | US ---
EXAMINATION TYPE: US venous doppler duplex LE RT DATE OF EXAM: 05/13/2022 3:30 PM COMPARISON: US 2022 CLINICAL HISTORY: right lower leg pain. Right lower leg pain SIDE PERFORMED: Right TECHNIQUE: The lower extremity deep venous system is examined utilizing real time linear array sonog tisha with graded compression, doppler sonography and color-flow sonography. VESSELS IMAGED: Common Femoral Vein Deep Femoral Vein Greater Saphenous Vein * Femoral Vein Popliteal Vein Small Saphenous Vein * Proximal Calf Veins (* superficial vessels) Right Leg: Appears negative for DVT IMPRESSION: No evidence of deep vein thrombosis in the right leg.
[2022-05-13] MEDS ORDERED: HEPARIN SODIUM 1,000 UN/ML (10ML VL) IV ONE (17:33)
[2022-05-13] MEDS ORDERED: NALOXONE 0.4 MG/ML 1 ML VIAL IV PRN (17:37)
[2022-05-13] MEDS: HEPARIN SOD,PORK IN 0.45% NACL 25,000 UNIT in 0.45% NACL 1 250ML.BAG IV SCH (18:08)
[2022-05-13 18:32] LABS: Anisocytosis Slight; Basophils % (A) 0 %; Eosinophils # (A) 0.3 k/uL (0-0.7); Eosinophils % (A) 5 %; HCT 36.7 % (39.0-53.0); HGB 11.7 gm/dL (13.0-17.5); Lymphocytes # (A) 1.2 k/uL (1.0-4.8); Lymphocytes % (A) 22 %; MCH 27.8 pg (25.0-35.0); MCHC 31.8 g/dL (31.0-37.0); MCV 87.6 fL (80.0-100.0); Mean Platelet Volume 7.9; Monocytes # (A) 0.3 k/uL (0-1.0); Monocytes % (A) 6 %; Neutrophils # (A) 3.4 k/uL (1.3-7.7); Neutrophils % (A) 64 %; Platelet Count 187 k/uL (150-450); RBC 4.19 m/uL (4.30-5.90); RDW 17.2 % (11.5-15.5); WBC 5.3 k/uL (3.8-10.6)
[2022-05-13] MEDS: MORPHINE SULFATE 4 MG/ML SYRINGE IV PRN (19:05)
--- NOTE | 2022-05-13 23:58 | P.HPIM ---
History of Present Illness H&P Date: 05/13/22 The patient is a 62-year-old male with a PMH of peripheral arterial disease status post right femoral artery bypass graft with chronic bilateral lower extremity ischemia, paroxysmal A. fib, type II DM, and hypertension who presents to the emergency room with complaints of right foot and leg pain. Of note, the patient was admitted to the hospital for similar complaints on 05/07. Right lower tremor he CTA head revealed no flow in the femoral artery graft as well as no flow in the right superficial femoral and popliteal arteries with collateral vessels filling the tibial arteries. The patient was scheduled to follow-up with Dr. Nuno for vein grafting with plans for bypass in the following week. The patient reports however that his pain has gradually been worsening, rated at a 6 out of 10, reported at 2/10 at the time of interview. Right lower extremity venous Doppler was negative for DVT with EKG showing sinus rhythm with sinus arrhythmia at 67 bpm with a right bundle branch block and a left anterior fascicular block. Laboratory evaluation was reviewed with hemoglobin 12.7 and creatinine 1.26 (baseline 0.9). As per the ED physician, case was discussed with Dr. Nuno who recommended admission and starting patient on heparin infusion. Review of systems: Pertinent positives and negatives as discussed in HPI, a complete review of systems was performed and all other systems are negative. Physical examination: Vital signs reviewed General: non toxic, no distress, appears at stated age, normal weight Derm: no unusual rashes/lesions, warm Head: atraumatic, normocephalic, symmetric Eyes: EOMI, no lid lag, anicteric sclera, pupils equal round reactive to light ENT: Nose and ears atraumatic Neck: No cervical lymphadenopathy, trachea midline, supple Mouth: no lip lesion, mucus membranes moist Cardiovascular: S1S2 reg, no murmur, dorsalis pedis pulses nonpalpable bilateraly, trace bilateral lower extremity pitting edema, vinh femoral pulses palpable, on doppler most distal pulse noted is R popliteal, L dorsalis pedis noted on doppler, R foot somewhat cold, Lungs: CTA bilateral, no rhonchi, no rales, no accessory muscle use Abdominal: soft, nontender to palpation, no guarding Ext: muscle strength 5 out of 5 of vinh LEs, strength 4/5 of vinh LEs including R ankle, no gross muscle atrophy, no contractures, varicose veins in vinh LEs with dusky appearance of right foot, Neuro: CN II-XI grossly intact, no gross focal neuro deficits Psych: Alert, oriented, appropriate affect Assessment: Peripheral arterial disease with chronic right lower extremity ischemia Paroxysmal A. fib Type II DM Hypertension Imaging: Right lower extremity venous Doppler was negative for DVT with EKG showing sinus rhythm with sinus arrhythmia at 67 bpm with a right bundle branch block and a left anterior fascicular block. Data Review: Laboratory evaluation was reviewed with hemoglobin 12.7 and creatinine 1.26 (baseline 0.9). Plan: Case discussed with Dr Nuno via phone Continue patient on heparin infusion IV with PTT monitoring Pain control with morphine IV push every 4 hours when necessary Vascular surgery consulted DVT prophylaxis: Heparin infusion The patient is admitted with an anticipated greater than 2 midnight stay for evaluation of RLE ischemia CODE STATUS: Full Code Discussed with: Patient Anticipated discharge date: 2-[address]: Home Past Medical History Past Medical History: Atrial Fibrillation, Deep Vein Thrombosis (DVT) Additional Past Medical History / Comment(s): alcoholism and smoker, blood clots History of Any Multi-Drug Resistant Organisms: MRSA Date of last positivie culture/infection: 07/05/21 MDRO Source:: Left Ankle Past Surgical History: Heart Catheterization, Tonsillectomy Additional Past Surgical History / Comment(s): stent to rt leg Past Anesthesia/Blood Transfusion Reactions: No Reported Reaction Past Psychological History: Anxiety Smoking Status: Current every day smoker Past Alcohol Use History: None Reported Additional Past Alcohol Use History / Comment(s): pt stated he drank a couple cases of beer a week, currently drinks 12 beers a day. Past Drug Use History: None Reported - Past Family History Mother Family Medical History: Diabetes Mellitus, Hypertension Additional Family Medical History / Comment(s): Family history of varicose veins. Father Family Medical History: CVA/TIA, Myocardial Infarction ([place]) Medications and Allergies Home Medications Medication Instructions Recorded Confirmed Type Aspirin 81 mg PO DAILY tab 05/09/22 05/13/22 Rx Clopidogrel [Plavix] 75 mg PO DAILY #30 tablet 05/09/22 05/13/22 Rx HYDROcodone/APAP 5-325MG [[place] 1 tab PO Q4HR PRN 05/13/22 05/13/22 History 5-325] Allergies Allergy/AdvReac Type Severity Reaction Status Date / Time No Known Allergies Allergy Verified 05/13/22 18:02 Physical Exam Vitals: Vital Signs Temp Pulse Pulse Resp BP BP Pulse Ox 05/13/22 19:16 98.0 F 73 18 179/79 96 05/13/22 18:26 74 16 160/89 96 05/13/22 14:59 97.8 F 81 20 180/91 98 Intake and Output 05/13/22 05/13/22 05/14/22 14:59 22:59 06:59 Other: # Voids 1 Weight 70.76 kg 70.76 kg Results CBC & Chem 7: 05/13/22 18:05 05/13/22 15:37 Labs: Abnormal Lab Results - Last 24 Hours (Table) 05/13/22 05/13/22 05/13/22 Range/Units 15:37 15:37 18:05 RBC 4.19 L (4.30-5.90) m/uL Hgb 12.7 L 11.7 L (13.0-17.5) gm/dL Hct 36.7 L (39.0-53.0) % RDW 17.2 H 17.2 H (11.5-15.5) % Creatinine 1.26 H (0.66-1.25) mg/dL Thrombosis Risk Factor Assmnt - Choose All That Apply Any of the Below Risk Factors Present?: Yes Each Factor Represents 1 point: Swollen legs (current) Each Risk Factor Represents 2 Points: Age 61-74 years Each Risk Factor Represents 3 Points: History of DVT/PE Thrombosis Risk Factor Assessment Total Risk Factor Score: 6 Thrombosis Risk Factor Assessment Level: High Risk
[2022-05-14] MEDS: MORPHINE SULFATE 4 MG/ML SYRINGE IV PRN ×3 (00:15→20:38)
[2022-05-14] MEDS: HEPARIN SODIUM 1,000 UN/ML (10ML VL) IV PRN ×2 (01:05→07:42)
[2022-05-14] MEDS: ASPIRIN 81 MG PO SCH (07:41)
[2022-05-14 07:54] LABS: Prothrombin Time 10.3 sec (9.0-12.0)
[2022-05-14] MEDS ORDERED: CLOPIDOGREL 75 MG TAB PO SCH (09:00)
[2022-05-14] MEDS: SODIUM CHLORIDE 0.9% 1,000 ML IV SCH ×2 (11:04→23:27)
[2022-05-14 11:44] LABS: Basophils # (A) 0.04 X 10*3/uL (0.00-0.10); Basophils % (A) 0.6 %; Eosinophils # (A) 0.28 X 10*3/uL (0.04-0.35); Eosinophils % (A) 4.3 %; HCT 39.3 % (39.6-50.0); Immature Grans, Automated 0.3 %; Lymphocytes # (A) 1.45 X 10*3/uL (0.90-5.00); MCH 26.7 pg (27.0-32.0); MCHC 30.5 g/dL (32.0-37.0); MCV 87.5 fL (80.0-97.0); Mean Platelet Volume 10.8 fL (9.5-12.2); Monocytes # (A) 0.49 X 10*3/uL (0.20-1.00); Monocytes % (A) 7.4 %; NRBC Per 100 WBC 0 /100 WBCS (0.0-0.0); Neutrophils % (A) 65.4 %; Platelet Count 215 X 10*3/uL (140-440); RBC 4.49 X 10*6/uL (4.40-5.60); RDW 18.9 % (11.5-14.5); WBC 6.58 X 10*3/uL (4.50-10.00)
[2022-05-14] MEDS: HYDROcodone/APAP 5-325MG 1 EACH TAB PO PRN (11:46)
[2022-05-14 11:58] LABS: African American GFR (CKD) 89.4 (60.0-200.0); Albumin 3.9 g/dL (3.8-4.9); Albumin/Globulin Ratio 1.78 (1.60-3.17); Anion Gap 8.7 mmol/L (10.00-18.00); BUN/Creat Ratio 17.31 Ratio (12.00-20.00); Calcium 8.8 mg/dL (8.7-10.3); Carbon Dioxide 26.3 mmol/L (20.0-27.5); Globulin 2.2 g/dL (1.6-3.3); Non-African American GFR(CKD) 77.1 (60.0-200.0); Potassium 4.9 mmol/L (3.5-5.5); Total Bilirubin 0.3 mg/dL (0.30-1.20); Total Protein 6.1 g/dL (6.2-8.2)
--- NOTE | 2022-05-14 13:59 | P.PN ---
Subjective Progress Note Date: 05/14/22 Hospital Course: Patient is a very pleasant 62-year-old male with a past medical history of peripheral arterial disease, chronic ulcers, paroxysmal atrial fibrillation, hypertension, diabetes mellitus, and nicotine dependence. He was recently admitted from 05/07/22- 05/09/22 for same complaint of worsening pain/claudication of bilateral lower extremities and was discharged home to follow-up the next morning in the office with Dr. Nuno for vein grafting to plan for scheduled bypass this week. Pt returned to the emergency department on 05/13/22 secondary to his reports of inability to tolerate worsening claudication/pain in his right lower extremity. He was seen and fully evaluated in the emergency department. Labs completed and reviewed. CBC was completed showing normocytic anemia with hemoglobin of 11.7. Coags normal findings. BMP revealing slight elevation of creatinine at 1.26 with baseline creatinine of 0.94. Liver profile is unremarkable. Right lower extremity venous Doppler was completed and radiology report revealing no evidence of DVT in the right lower extremity. EKG also completed showing normal sinus rhythm at 67 bpm with a right bundle branch block and T-wave inversion in inferior leads 2, 3, and aVF. ED physician discussed case with our hospitalist physician and vascular surgeon. Patient was started on a heparin infusion and admitted under our services with consultation to vascular surgery at this time. Physical Exam: Patient seen and examined at bedside. Vital signs reviewed and stable. General: Nontoxic, no distress and appears stated age. Derm: Skin warm and dry, normal coloration for ethnicity. Bilateral lower extremities cool to touch. Head: Atraumatic, normocephalic and symmetric. Eyes: EOMs intact, no lid lag, and anicteric sclera Mouth: no lip lesions, mucus membranes moist Cardiovascular: regular rate and rhythm with normal S1S2, systolic murmur. Dorsalis pedis pulses nonpalpable bilaterally, trace bilateral lower extremity pitting edema, bilateral femoral pulses palpable. Patient with moderate venous discoloration of bilateral lower extremities and purplish discoloration of right lower extremity worse surrounding medial ankle region. Lungs: Respirations even, regular, and unlabored on room air. Lungs CTA bilaterally, no rhonchi, no rales, no wheezing, and no accessory muscle usage. Abdominal: soft, nontender to palpation, no guarding, no appreciable organomegaly Ext: Movement intact and sensation intact. Venous discoloration of bilateral lower extremities with chronic venous ulcer left lower extremity. Neuro: Speech clear, face symmetrical and CN II-XII grossly intact with no noted focal neuro deficits Psych: Alert and oriented to person, place, time, and situation. Appropriate and pleasant affect. Assessment and Plan of Care: Morning labs reviewed. CBC revealing normocytic anemia with hemoglobin of 12.0 and CMP unremarkable. PTT was slightly subtherapeutic at 39.0 seconds. Acute on chronic right lower extremity limb ischemia Chronic left lower extremity ulceration Peripheral arterial disease Paroxysmal atrial fibrillation Hypertension Diabetes mellitus Nicotine dependence -Vascular surgeon following, and we discussed plan of care. Dr. Nuno reported that underwent vein mapping outpatient after previous discharge as instructed. He was found to need a donor vein for completion of bypass procedure. Dr. Nuno states currently patient's bypass is planned for 05/18/22, pending this time patient to continue with current medication management. She also stated patient may discontinue Plavix at this time while on heparin infusion. -PTT slightly subtherapeutic at 39.0 seconds. Heparin infusion increased to 16 units/kg/hr. from previous 12 units/kg/hour. PTT to be completed every 6 hours and heparin infusion will be adjusted accordingly based upon these results. -Continue heparin infusion at 16 units/kg/hr along with aspirin 81 mg daily. -We will continue to monitor CBC closely for close following of hemoglobin while on heparin infusion. -Patient encouraged on smoking cessation and risks of continued use up to and including . -Patient's hemoglobin A1c was elevated at 6.1% during last admission, anticipated after bypass surgery this week patient will need to be discharged ho hi on metformin. CODE STATUS: Full code DVT prophylaxis: Heparin Discussed with: Patient, RN, and vascular surgeon Anticipated discharge date: Clinical course to determine Anticipated discharge place: Home Patient was seen independently by Nurse Pracitioner. This document was prepared using [employer] dictation software. 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 I reviewed the documentation as provided by the MAKENZIE above, who is the original author of this note. I agree with the documented assessment and plan, with the following changes: none Objective - Vital Signs Vital signs: Vital Signs Temp 98 F 05/14/22 07:00 Pulse 60 05/14/22 07:00 Resp 18 05/14/22 07:00 BP 168/86 05/14/22 07:00 Pulse Ox 98 05/14/22 07:00 FiO2 Intake & Output 05/13/22 05/14/22 05/14/22 18:59 06:59 18:59 Intake Total 57.031 67.856 Output Total 600 1200 Balance -542.969 -1132.144 Weight 70.76 kg Intake: Intake, IV Titration 57.031 67.856 Amount Heparin Sod,Pork in 0.45% 57.031 67.856 NaCl 25,000 unit In 0.45 % NaCl 1 250ml.bag @ 12 UNITS/KG/HR 8.491 mls/hr IV .Q24H [facility] Rx#: [id number] Output: Urine 600 1200 Other: # Voids 1 - Labs CBC & Chem 7: 05/14/22 07:01 05/14/22 07:01 Labs: Abnormal Lab Results - Last 24 Hours (Table) 05/13/22 05/13/22 05/13/22 Range/Units 15:37 15:37 18:05 RBC 4.19 L (4.30-5.90) m/uL Hgb 12.7 L 11.7 L (13.0-17.5) gm/dL Hct 36.7 L (39.0-53.0) % RDW 17.2 H 17.2 H (11.5-15.5) % APTT (22.0-30.0) sec Creatinine 1.26 H (0.66-1.25) mg/dL 05/13/22 05/14/22 Range/Units 23:48 07:01 RBC (4.30-5.90) m/uL Hgb (13.0-17.5) gm/dL Hct (39.0-53.0) % RDW (11.5-15.5) % APTT 35.9 H 39.0 H (22.0-30.0) sec Creatinine (0.66-1.25) mg/dL
--- NOTE | 2022-05-14 15:43 | P.GSCN ---
History of Present Illness Consult date: 05/14/22 History of present illness: Patient is a 62-year-old male with past medical history of severe peripheral arterial disease and right femoral artery occlusion who also has atrial fibrillation, type 2 diabetes and hypertension. He was admitted to the hospital previously last week and underwent an angiogram for evaluation of his chronic disease with progression for peripheral arterial disease. Is found to have severe occlusion. He was sent home with short-term follow-up and initial planning for bypass graft however he presented back to the hospital due to inability to control the pain at home. He states he did go back to work for about 7-8 hours and began having more stiffness in his ankle and discomfort. Past Medical History Past Medical History: Atrial Fibrillation, Deep Vein Thrombosis (DVT) Additional Past Medical History / Comment(s): alcoholism and smoker, blood clots History of Any Multi-Drug Resistant Organisms: MRSA Year Discovered:: 07/05/21 MDRO Source:: Left Ankle Past Surgical History: Heart Catheterization, Tonsillectomy Additional Past Surgical History / Comment(s): stent to rt leg Past Anesthesia/Blood Transfusion Reactions: No Reported Reaction Past Psychological History: Anxiety Smoking Status: Current every day smoker Past Alcohol Use History: None Reported Additional Past Alcohol Use History / Comment(s): pt stated he drank a couple cases of beer a week, currently drinks 12 beers a day. Past Drug Use History: None Reported - Past Family History Mother Family Medical History: Diabetes Mellitus, Hypertension Additional Family Medical History / Comment(s): Family history of varicose v eins. Father Family Medical History: CVA/TIA, Myocardial Infarction ([place]) Medications and Allergies Home Medications Medication Instructions Recorded Confirmed Type Aspirin 81 mg PO DAILY tab 05/09/22 05/13/22 Rx Clopidogrel [Plavix] 75 mg PO DAILY #30 tablet 05/09/22 05/13/22 Rx HYDROcodone/APAP 5-325MG [[place] 1 tab PO Q4HR PRN 05/13/22 05/13/22 History 5-325] Allergies Allergy/AdvReac Type Severity Reaction Status Date / Time No Known Allergies Allergy Verified 05/13/22 18:02 Surgical - Exam Vital Signs Temp Pulse Resp BP Pulse Ox 97.8 F 81 20 180/91 98 05/13/22 14:59 05/13/22 14:59 05/13/22 14:59 05/13/22 14:59 05/13/22 14:59 Gen. is a pleasant cooperative male appearing older than stated age. HEENT is normocephalic atraumatic extra motion intact. Heart appears regular at this time, lungs are clear. Abdomen is soft. Palpable femoral pulses bilaterally. Cool extremities bilaterally, motor intact. diminished sensation at the tip of the right great toe. There is some skin coloration changes to the medial ankle, large ropey varicosities throughout Results - Labs 05/14/22 07:01 05/14/22 07:01 Abnormal Lab Results - Last 24 Hours (Table) 05/13/22 05/13/22 05/13/22 Range/Units 15:37 15:37 18:05 RBC 4.19 L (4.30-5.90) m/uL Hgb 12.7 L 11.7 L (13.0-17.5) gm/dL Hct 36.7 L (39.0-53.0) % MCH (27.0-32.0) pg MCHC (32.0-37.0) g/dL RDW 17.2 H 17.2 H (11.5-15.5) % APTT (22.0-30.0) sec Anion Gap (10.00-18.00) mmol/L Creatinine 1.26 H (0.66-1.25) mg/dL Total Protein (6.2-8.2) g/dL 05/13/22 05/14/22 05/14/22 Range/Units 23:48 07:01 07:01 RBC (4.30-5.90) m/uL Hgb 12.0 L (13.0-17.5) gm/dL Hct 39.3 L (39.0-53.0) % MCH 26.7 L (27.0-32.0) pg MCHC 30.5 L (32.0-37.0) g/dL RDW 18.9 H (11.5-15.5) % APTT 35.9 H (22.0-30.0) sec Anion Gap 8.70 L (10.00-18.00) mmol/L Creatinine (0.66-1.25) mg/dL Total Protein 6.1 L (6.2-8.2) g/dL 05/14/22 05/14/22 Range/Units 07:01 13:18 RBC (4.30-5.90) m/uL Hgb (13.0-17.5) gm/dL Hct (39.0-53.0) % MCH (27.0-32.0) pg MCHC (32.0-37.0) g/dL RDW (11.5-15.5) % APTT 39.0 H 51.3 H (22.0-30.0) sec Anion Gap (10.00-18.00) mmol/L Creatinine (0.66-1.25) mg/dL Total Protein (6.2-8.2) g/dL Diabetes panel 05/13/22 05/14/22 Range/Units 15:37 07:01 Sodium 137 138 (137-145) mmol/L Potassium 4.8 4.9 (3.5-5.1) mmol/L Chloride 101 103 (98-107) mmol/L Carbon Dioxide 28 26.3 (22-30) mmol/L BUN 17 18.0 (9-20) mg/dL Creatinine 1.26 H 1.0 (0.66-1.25) mg/dL Glucose 99 101 (74-99) mg/dL Calcium 9.1 8.8 (8.4-10.2) mg/dL AST 41 33 (17-59) U/L ALT 23 19 (4-49) U/L Alkaline Phosphatase 78 81 (38-126) U/L Total Protein 7.1 6.1 L (6.3-8.2) g/dL Albumin 4.2 3.9 (3.5-5.0) g/dL Calcium panel 05/13/22 05/14/22 Range/Units 15:37 07:01 Calcium 9.1 8.8 (8.4-10.2) mg/dL Albumin 4.2 3.9 (3.5-5.0) g/dL Pituitary panel 05/13/22 05/14/22 Range/Units 15:37 07:01 Sodium 137 138 (137-145) mmol/L Potassium 4.8 4.9 (3.5-5.1) mmol/L Chloride 101 103 (98-107) mmol/L Carbon Dioxide 28 26.3 (22-30) mmol/L BUN 17 18.0 (9-20) mg/dL Creatinine 1.26 H 1.0 (0.66-1.25) mg/dL Glucose 99 101 (74-99) mg/dL Calcium 9.1 8.8 (8.4-10.2) mg/dL Adrenal panel 05/13/22 05/14/22 Range/Units 15:37 07:01 Sodium 137 138 (137-145) mmol/L Potassium 4.8 4.9 (3.5-5.1) mmol/L Chloride 101 103 (98-107) mmol/L Carbon Dioxide 28 26.3 (22-30) mmol/L BUN 17 18.0 (9-20) mg/dL Creatinine 1.26 H 1.0 (0.66-1.25) mg/dL Glucose 99 101 (74-99) mg/dL Calcium 9.1 8.8 (8.4-10.2) mg/dL Total Bilirubin 0.5 0.30 (0.2-1.3) mg/dL AST 41 33 (17-59) U/L ALT 23 19 (4-49) U/L Alkaline Phosphatase 78 81 (38-126) U/L Total Protein 7.1 6.1 L (6.3-8.2) g/dL Albumin 4.2 3.9 (3.5-5.0) g/dL Assessment and Plan Assessment: Chronic peripheral arterial disease with worsening, Se 4 peripheral arterial disease Plan: Workup and planning for expedited bypass this admission. Plan will be for CryoVein bypass after appropriate clearance by medicine. This is all discussed with the patient is seemingly understands. We discussed the continued attempts at limb salvage as well as discussions regarding possible amputation. He seemingly understands and would like to proceed with plans for bypass
[2022-05-14] MEDS: HEPARIN SOD,PORK IN 0.45% NACL 25,000 UNIT in 0.45% NACL 1 250ML.BAG IV SCH (17:23)
[2022-05-15] MEDS: MORPHINE SULFATE 4 MG/ML SYRINGE IV PRN ×2 (02:34→21:39)
[2022-05-15] MEDS: SODIUM CHLORIDE 0.9% 1,000 ML IV SCH ×2 (06:07→17:45)
[2022-05-15] MEDS ORDERED: CAFFEINE CITRATE 60 MG/3 ML VIAL IV PRN (07:58)
[2022-05-15] MEDS ORDERED: AMINOPHYLLINE 500 MG/20 ML VIAL IV PRN (07:58)
[2022-05-15] MEDS ORDERED: REGADENOSON 0.4 MG/5 ML SYRINGE IV PRN (07:58)
--- NOTE | 2022-05-15 07:58 | P.CRDCN ---
History of Present Illness History of present illness: HISTORY OF PRESENTING ILLNESS Patient is a 62-year-old male with history of tobacco abuse alcohol use prior atrial fibrillation PAD who presents secondary to numbness pain and discoloration of the right lower extremity. He denies any history of hypertension and is not taking medication for this however is noted to be hypertensive at 180s systolic on presentation. He had presented last week secondary to increased pain and numbness in his left lower extremity and was found to have occlusion of the SFA and recommended bypass. This was attempted to be performed outpatient however presented back with more lower extremity pain. Initially he states he occasionally has some chest pain however on further questioning states he does not routinely get chest pain and able walk up a flight of stairs without any discomfort or shortness breath. Prior echo from 2019 showed EF 40-45% with mention of inferior hypokinesis. Denies any history of heart failure. Grandfather with history of bypass, mother with a history of carotid artery stenosis. He still does smoke. He did have a history of atrial fibrillation in the past however unclear if this was around the time of heavy alcohol use. Denies any further episodes. No history of stroke or TIA. REVIEW OF SYSTEMS At the time of my exam: CONSTITUTIONAL: Denies fever or chills. CARDIOVASCULAR: Denies chest pain, shortness of breath, orthopnea, PND or palpitations. RESPIRATORY: Denies cough. GASTROINTESTINAL: Denies abdominal pain, diarrhea, constipation, nausea or vomiting. MUSCULOSKELETAL: Denies myalgias. NEUROLOGIC: Denies numbness, tingling or weakness. ENDOCRINE: Denies fatigue, weight change, polydipsia or polyurina. GENITOURINARY: Denies burning, hematuria or urgency with micturation. HEMATOLOGIC: Denies history of anemia or bleeding. PHYSICAL EXAMINATION Vital signs reviewed. CONSTITUTIONAL: No apparent distress. HEENT: Head is normocephalic. Pupils are equal, round. Sclerae anicteric. Mucous membranes of the mouth are moist. No JVD. No carotid bruit. CHEST EXAMINATION: Lungs are clear to auscultation. No chest wall tenderness is noted on palpation or with deep breathing. HEART EXAMINATION: Regular rate and rhythm. S1, S2 heard. No murmurs, gallops or rub. ABDOMEN: Soft, nontender. Positive bowel sounds. EXTREMITIES: +LLE dressing, no lower extremity edema and no calf tenderness. NEUROLOGIC EXAMINATION: Patient is awake, alert and oriented x3. ASSESSMENT 1. Acute limb ischemia right lower extremity with SFA occlusion, recommendations for bypass 2. Chronic left lower extremity ulcer 3. Paroxysmal A. fib, one occurrence during 2019 unclear if related to alcohol use 4. Hypertension, not on medications at home 5. Cardiomyopathy ejection fraction 40-45% with mention of inferior hypokinesis 6. Borderline diabetes mellitus type 2, hemoglobin A1c 6.1 7. Tobacco abuse 8. Alcohol use 9. Poor follow-up PLAN Patient did have prior mild cardiomyopathy ejection fraction 40-45% with mention of inferior hypokinesis. We will check echocardiogram to reevaluate as well as a Lexiscan stress test to further risk stratify patient. He states he is able to perform 4 METS of activity without angina or shortness of breath. Further recommendations to follow. Past Medical History Past Medical History: Atrial Fibrillation, Deep Vein Thrombosis (DVT) Additional Past Medical History / Comment(s): alcoholism and smoker, blood clots History of Any Multi-Drug Resistant Organisms: MRSA Date of last positivie culture/infection: 07/05/21 MDRO Source:: Left Ankle Past Surgical History: Heart Catheterization, Tonsillectomy Additional Past Surgical History / Comment(s): stent to rt leg Past Anesthesia/Blood Transfusion Reactions: No Reported Reaction Past Psychological History: Anxiety Smoking Status: Current every day smoker Past Alcohol Use History: None Reported Additional Past Alcohol Use History / Comment(s): pt stated he drank a couple cases of beer a week, currently drinks 12 beers a day. Past Drug Use History: None Reported - Past Family History Mother Family Medical History: Diabetes Mellitus, Hypertension Additional Family Medical History / Comment(s): Family history of varicose veins. Father Family Medical History: CVA/TIA, Myocardial Infarction ([place]) Medications and Allergies Home Medications Medication Instructions Recorded Confirmed Type Aspirin 81 mg PO DAILY tab 05/09/22 05/13/22 Rx Clopidogrel [Plavix] 75 mg PO DAILY #30 tablet 05/09/22 05/13/22 Rx HYDROcodone/APAP 5-325MG [[place] 1 tab PO Q4HR PRN 05/13/22 05/13/22 History 5-325] Allergies Allergy/AdvReac Type Severity Reaction Status Date / Time No Known Allergies Allergy Verified 05/13/22 18:02 Physical Exam Vitals: Vital Signs Temp Pulse Resp BP Pulse Ox 05/15/22 02:00 97.7 F 52 L 18 167/78 96 05/14/22 20:00 97.8 F 67 18 145/78 100 05/14/22 14:00 97.9 F 70 18 150/52 97 Intake and Output 05/14/22 05/15/22 05/15/22 22:59 06:59 14:59 Intake Total 109.635 Output Total 1000 Balance -890.365 Intake: Intake, IV Titration 109.635 Amount Heparin Sod,Pork in 0.45% 109.635 NaCl 25,000 unit In 0.45 % NaCl 1 250ml.bag @ 12 UNITS/KG/HR 8.491 mls/hr IV .Q24H [facility] Rx#: [id number] Output: Urine 1000 Other: # Voids 1 2 Results 05/14/22 07:01 05/14/22 07:01 Cardiac Enzymes 05/14/22 Range/Units 07:01 AST 33 (14-35) U/L Coagulation 05/14/22 05/14/22 05/15/22 Range/Units 07:01 13:18 05:46 PT 10.3 (9.0-12.0) sec APTT 51.3 H 43.2 H (22.0-30.0) sec CBC 05/14/22 Range/Units 07:01 WBC 6.58 (4.50-10.00) X 10*3/uL RBC 4.49 (4.40-5.60) X 10*6/uL Hgb 12.0 L (13.0-17.0) g/dL Hct 39.3 L (39.6-50.0) % Plt Count 215 (140-440) X 10*3/uL Comprehensive Metabolic Panel 05/14/22 Range/Units 07:01 Sodium 138 (135-145) mmol/L Potassium 4.9 (3.5-5.5) mmol/L Chloride 103 (96-109) mmol/L Carbon Dioxide 26.3 (20.0-27.5) mmol/L BUN 18.0 (9.0-27.0) mg/dL Creatinine 1.0 (0.6-1.5) mg/dL Glucose 101 (70-110) mg/dL Calcium 8.8 (8.7-10.3) mg/dL AST 33 (14-35) U/L ALT 19 (10-49) U/L Alkaline Phosphatase 81 (41-126) U/L Total Protein 6.1 L (6.2-8.2) g/dL Albumin 3.9 (3.8-4.9) g/dL Current Medications Generic Name Dose Route Start Last Admin Trade Name Freq PRN Reason Stop Dose Admin Hydrocodone Bitart/Acetaminophen 1 each 05/14/22 09:29 05/14/22 11:46 Hydrocodone/Apap 5-325mg 1 Each Tab PO 1 each Q4HR PRN Administration Moderate Pain (Scale 4 to 6) Aspirin 81 mg 05/14/22 09:00 05/14/22 07:41 Aspirin 81 Mg PO 81 mg DAILY [facility] Administration Heparin Sodium (Porcine) 0 unit 05/13/22 17:33 05/14/22 07:42 Heparin Sodium 1,000 Un/Ml (10ml Vl) IV 141.5 unit PER PROTOCOL PRN Administration Low PTT Protocol Heparin Sodium/Sodium Chloride 250 mls @ 8.491 mls/hr 05/13/22 17:45 05/14/22 17:23 25,000 unit/ Sodium Chloride IV 16 units/kg/hr .Q24H [facility] 11.322 mls/hr Administration Protocol 12 UNITS/KG/HR Sodium Chloride 1,000 mls @ 100 mls/hr 05/14/22 09:30 05/15/22 06:07 Saline 0.9% IV 100 mls/hr .Q10H [facility] Administration Morphine Sulfate 4 mg 05/13/22 17:37 05/15/22 02:34 Morphine Sulfate 4 Mg/Ml Syringe IV 4 mg Q4HR PRN Administration Severe Pain (Scale 7 to 10) Naloxone HCl 0.2 mg 05/13/22 17:37 Naloxone 0.4 Mg/Ml 1 Ml Vial IV Q2M PRN Opioid Reversal Intake and Output 05/14/22 05/15/22 05/15/22 22:59 06:59 14:59 Intake Total 109.635 Output Total 1000 Balance -890.365 Intake: Intake, IV Titration 109.635 Amount Heparin Sod,Pork in 0.45% 109.635 NaCl 25,000 unit In 0.45 % NaCl 1 250ml.bag @ 12 UNITS/KG/HR 8.491 mls/hr IV .Q24H [facility] Rx#: [id number] Output: Urine 1000 Other: # Voids 1 2 05/14/22 07:01 05/14/22 07:01
[2022-05-15] MEDS: METOPROLOL SUCCINATE (ER) 25 MG TAB.ER.24H PO SCH (08:51)
[2022-05-15] MEDS: ASPIRIN 81 MG PO SCH (08:51)
[2022-05-15 09:26] LABS: HCT 39.6 % (39.6-50.0); HGB 12.4 g/dL (13.0-17.0); MCH 27.1 pg (27.0-32.0); MCHC 31.3 g/dL (32.0-37.0); MCV 86.5 fL (80.0-97.0); Mean Platelet Volume 10.4 fL (9.5-12.2); NRBC Per 100 WBC 0 /100 WBCS (0.0-0.0); Platelet Count 211 X 10*3/uL (140-440); RBC 4.58 X 10*6/uL (4.40-5.60); RDW 19.1 % (11.5-14.5); WBC 5.18 X 10*3/uL (4.50-10.00)
[2022-05-15 09:32] LABS: African American GFR (CKD) 111.7 (60.0-200.0); Anion Gap 8.6 mmol/L (10.00-18.00); BUN/Creat Ratio 18.63 Ratio (12.00-20.00); Blood Urea Nitrogen 14.9 mg/dL (9.0-27.0); Calcium 8.8 mg/dL (8.7-10.3); Carbon Dioxide 25.4 mmol/L (20.0-27.5); Non-African American GFR(CKD) 96.4 (60.0-200.0); Potassium 4.4 mmol/L (3.5-5.5)
--- NOTE | 2022-05-15 12:32 | NM ---
EXAMINATION TYPE: NM stress lexiscan cardiolite DATE OF EXAM: 05/15/2022 COMPARISON: NONE HISTORY: Preop clearance TECHNIQUE: After the intravenous administration of 10.5 mCi Tc 99m Sestamibi - Cardiolite resting SP ECT images acquired 45 minutes post injection. The patient received 0.4mg Lexiscan, 25.4 mCi Tc 99m Sestamibi - Stress images obtained [address] injection FINDINGS: Review of stress and rest SPECT images demonstrates fixed decreased perfusion involving the cardiac a pex which may reflect remote insult versus attenuation artifact. No definite reversible ischemia seen at this time. Gated analysis shows normal wall motion with an estimated left ventricular ejection fr action of 45 %. IMPRESSION: No scintigraphic evidence for reversible ischemia.
--- NOTE | 2022-05-15 13:18 | CA ---
Transthoracic Echo Report Name: Mc Dangelo Age: 62 Gender: M : 1960 Exam Date: 05/15/2022 08:55 Exam Location: [facility] Ht (in): 70.5 Wt (lb): 156 Ordering Physician: Angus Shaikh DO ([email or web address]) Attending/Referring Phys: Behaviorist Jenise Herrera RDCS Procedure CPT: Indications: re: Preop clearance Cardiac Hx: Technical Quality: Good Contrast 1: Total Dose (mL): Contrast 2: Total Dose (mL): MEASUREMENTS (Male / Female) Normal Values 2D ECHO LV Diastolic Diameter PLAX 4.6 cm 4.2 - 5.9 / 3.9 - 5.3 cm LV Systolic Diameter PLAX 3.5 cm IVS Diastolic Thickness 1.1 cm 0.6 - 1.0 / 0.6 - 0.9 cm LVPW Diastolic Thickness 1.1 cm 0.6 - 1.0 / 0.6 - 0.9 cm LV Relative Wall Thickness 0.5 RV Internal Dim ED PLAX 3.5 cm LA Systolic Diameter LX 3.6 cm 3.0 - 4.0 / 2.7 - 3.8 cm LV Diastolic Volume MOD 4C 125.7 cm??? LV Systolic Volume MOD 4C 73.9 cm??? LV Ejection Fraction MOD 4C 41.2 % LV Diastolic Length 4C 9.5 cm LV Systolic Length 4C 8.0 cm LV Diastolic Volume MOD 2C 93.8 cm??? LV Systolic Volume MOD 2C 55.7 cm??? LV Ejection Fraction MOD 2C 40.6 % LV Diastolic Length 2C 9.8 cm LV Systolic Length 2C 8.4 cm LA Volume 70.7 cm??? 18 - 58 / 22 - 52 cm??? M-MODE Aortic Root Diameter MM 3.5 cm MV E Point Septal Separation 0.7 cm AV Cusp Separation MM 2.1 cm DOPPLER AV Peak Velocity 170.5 cm/s AV Peak Gradient 11.6 mmHg MV Area PHT 3.1 cm??? Mitral E Point Velocity 67.8 cm/s Mitral A Point Velocity 81.8 cm/s Mitral E to A Ratio 0.8 MV Deceleration Time 244.9 ms MV E' Velocity 5.4 cm/s Mitral E to MV E' Ratio 12.6 TR Peak Velocity 232.8 cm/s TR Peak Gradient 21.7 mmHg Right Ventricular Systolic Press 26.7 mmHg FINDINGS Left Ventricle Left ventricular ejection fraction is estimated at 45%. Left ventricular cavity size normal. Mildly increased septal wall thickness. Right Ventricle Mild right ventricular dilatation. Right ventricular systolic pressure within normal limits. Right Atrium Normal right atrial size. Left Atrium Moderately increased left atrial volume. Mitral Valve Mitral valve thickened. Trace mitral regurgitation. Aortic Valve Trileaflet aortic valve. Focal thickening of the aortic valve cusps. Tricuspid Valve Structurally normal tricuspid valve. Mild tricuspid regurgitation. Pulmonic Valve Structurally normal pulmonic valve. Mild pulmonic regurgitation. Pericardium Normal pericardium. No pericardial effusion. Aorta Normal size aortic root and proximal ascending aorta. CONCLUSIONS Left ventricular ejection fraction 45% Trace mitral regurgitation Moderately dilated left atrium Mild tricuspid regurgitation No pericardial effusion Previewed by: Dr. Angus Shaikh DO (Electronically Signed) Final Date: 15 May 2022 13:17
--- NOTE | 2022-05-15 13:39 | CA ---
Lexiscan Nuclear Stress Test Report Name: Mc Dangelo Exam Date: 05/15/2022 10:07 Exam Location: [place] Stress Ht (in): 70 Wt (lb): 156 BSA: 1.88 Ordering Phys: Angus Shaikh DO Referring Phys: ,, Technologist: Jen Sandoval RDCS Age: 62 Gender: M : 1960 Procedure CPT: Indications: Reflex order-Stress test ICD-10 Codes: Patient History: Medications: SEE CHART Meds past 24 hrs: Pretest Chest Pain: STRESS TEST Lexiscan Protocol Exercise Duration (min:sec): 02:[address] Depressions (mm): Angina Score: Vidales Score: Resting HR (bpm): 56 Peak HR (bpm): 74 Resting BP (mmHg): 161 / 85 Peak BP (mmHg): 184 / 73 MPHR: 159 Target HR: 135 % MPHR: 47 METS: 1.0 Total Dose: Peak Dose: Atropine: Double Product: 17214 BP Response: Stress Termination: PROTOCOL COMPLETE Stress Symptoms: NO SYMPTOMS Stress Summary: ECG ANALYSIS Resting ECG: Stress ECG: CONCLUSIONS At baseline EKG showed normal sinus rhythm, left axis deviation, right bundle-branch block with nonspecific T-wave inversions inferiorly. Patient recieved IV infusion of Lexiscan 0.4mg and at peak infusion EKG showed no significant change from baseline. Conclusions: 1. Nonspecific stress EKG portion secondary baseline EKG abnormalities 2. Nuclear imaging to be reported separately. Dr. Angus Shaikh DO (Electronically Signed) Final Date: 15 May 2022 13:39
--- NOTE | 2022-05-15 15:08 | P.PN ---
Subjective Progress Note Date: 05/15/22 Hospital Course: Patient is a very pleasant 62-year-old male with a past medical history of peripheral arterial disease, chronic ulcers, paroxysmal atrial fibrillation, hypertension, diabetes mellitus, and nicotine dependence. He was recently admitted from 05/07/22- 05/09/22 for same complaint of worsening pain/claudication of bilateral lower extremities and was discharged home to follow-up the next morning in the office with Dr. Nuno for vein grafting to plan for scheduled bypass this week. Pt returned to the emergency department on 05/13/22 secondary to his reports of inability to tolerate worsening claudication/pain in his right lower extremity. He was seen and fully evaluated in the emergency department. Labs completed and reviewed. CBC was completed showing normocytic anemia with hemoglobin of 11.7. Coags normal findings. BMP revealing slight elevation of creatinine at 1.26 with baseline creatinine of 0.94. Liver profile is unremarkable. Right lower extremity venous Doppler was completed and radiology report revealing no evidence of DVT in the right lower extremity. EKG also completed showing normal sinus rhythm at 67 bpm with a right bundle branch block and T-wave inversion in inferior leads 2, 3, and aVF. ED physician discussed case with our hospitalist physician and vascular surgeon. Patient was started on a heparin infusion and admitted under our services with consultation to vascular surgery at this time. Physical Exam: Patient seen and examined at bedside upon return from stress testing. He currently reports controlled right lower extremity pain and denies having any needs or complaints at this time. Vital signs reviewed and stable. General: Nontoxic, no distress and appears stated age. Derm: Skin warm and dry, normal coloration for ethnicity. Bilateral lower extr emities cool to touch. Head: Atraumatic, normocephalic and symmetric. Eyes: EOMs intact, no lid lag, and anicteric sclera Mouth: no lip lesions, mucus membranes moist Cardiovascular: regular rate and rhythm with normal S1S2, systolic murmur. Dorsalis pedis pulses nonpalpable bilaterally, trace bilateral lower extremity pitting edema, bilateral femoral pulses palpable. Patient with moderate venous discoloration of bilateral lower extremities and purplish discoloration of right lower extremity worse surrounding medial ankle region. Lungs: Respirations even, regular, and unlabored on room air. Lungs CTA bilaterally, no rhonchi, no rales, no wheezing, and no accessory muscle usage. Abdominal: soft, nontender to palpation, no guarding, no appreciable organomegaly Ext: Movement intact and sensation intact. Venous discoloration of bilateral lower extremities with chronic venous ulcer left lower extremity. Neuro: Speech clear, face symmetrical and CN II-XII grossly intact with no noted focal neuro deficits Psych: Alert and oriented to person, place, time, and situation. Appropriate and pleasant affect. Assessment and Plan of Care: Morning labs reviewed. CBC revealing normocytic anemia with hemoglobin of 12.4 and BMP unremarkable. PTT was slightly subtherapeutic at 39.0 seconds. Acute on chronic right lower extremity limb ischemia Chronic left lower extremity ulceration Peripheral arterial disease Paroxysmal atrial fibrillation Hypertension Diabetes mellitus Nicotine dependence -Vascular surgeon following, and we discussed plan of care. Tentative plan remains in place for bypass 05/18/22. -Cardiology consulted for cardiac clearance secondary to T-wave inversion in inferior leads noted on EKG along with echocardiogram completed 01/22/2020 showing an impaired EF of 40-45% with basal inferior left ventricular wall hypokinesis. Discussed with cardiology and they took patient for Lexiscan stress test today. -Echocardiogram was ordered and stress test results pending. -PTT therapeutic at 43.2 seconds, no changes made to heparin infusion at this time. PTT to be completed every 6 hours and heparin infusion will be adjusted accordingly based upon these results. -Continue heparin infusion at 16 units/kg/hr along with aspirin 81 mg daily. -We will continue to monitor CBC closely for close following of hemoglobin while on heparin infusion. -Patient encouraged on smoking cessation and risks of continued use up to and including . -Patient's hemoglobin A1c was elevated at 6.1% during last admission, anticipated after bypass surgery this week patient will need to be discharged home on metformin. CODE STATUS: Full code DVT prophylaxis: Heparin Discussed with: Patient, RN, and vascular surgeon Anticipated discharge date: Clinical course to determine Anticipated discharge place: Home Patient was seen independently by Nurse Pracitioner. This document was prepared using [employer] dictation software. Please allow for errors in drug and alcohol counsellor, while rare they do occur. I reviewed the documentation as provided by the MAKENZIE above, who is the original author of this note. I agree with the documented assessment and plan, with the following changes: none Objective - Vital Signs Vital signs: Vital Signs Temp 97.7 F 05/15/22 08:00 Pulse 64 05/15/22 08:00 Resp 16 05/15/22 08:00 BP 188/67 05/15/22 08:00 Pulse Ox 97 05/15/22 08:00 FiO2 Intake & Output 05/14/22 05/15/22 05/15/22 18:59 06:59 18:59 Intake Total 657.491 Output Total 1200 1000 1300 Balance -542.509 -1000 -1300 Intake: Intake, IV Titration 177.491 Amount Heparin Sod,Pork in 0.45% 177.491 NaCl 25,000 unit In 0.45 % NaCl 1 250ml.bag @ 12 UNITS/KG/HR 8.491 mls/hr IV .Q24H [facility] Rx#: [id number] Oral 480 Output: Urine 1200 1000 1300 Other: # Voids 1 2 - Labs CBC & Chem 7: 05/19/22 06:59 05/19/22 06:59 Labs: Abnormal Lab Results - Last 24 Hours (Table) 05/14/22 05/14/22 05/14/22 Range/Units 07:01 07:01 13:18 Hgb 12.0 L (13.0-17.0) g/dL Hct 39.3 L (39.6-50.0) % MCH 26.7 L (27.0-32.0) pg MCHC 30.5 L (32.0-37.0) g/dL RDW 18.9 H (11.5-14.5) % APTT 51.3 H (22.0-30.0) sec Anion Gap 8.70 L (10.00-18.00) mmol/L Total Protein 6.1 L (6.2-8.2) g/dL 05/15/22 Range/Units 05:46 Hgb (13.0-17.0) g/dL Hct (39.6-50.0) % MCH (27.0-32.0) pg MCHC (32.0-37.0) g/dL RDW (11.5-14.5) % APTT 43.2 H (22.0-30.0) sec Anion Gap (10.00-18.00) mmol/L Total Protein (6.2-8.2) g/dL
[2022-05-15] MEDS: HEPARIN SOD,PORK IN 0.45% NACL 25,000 UNIT in 0.45% NACL 1 250ML.BAG IV SCH (16:42)
[2022-05-15] MEDS: HYDROcodone/APAP 5-325MG 1 EACH TAB PO PRN ×2 (17:43→23:12)
[2022-05-15] MEDS ORDERED: LIDOCAINE 4% CREAM 5 GM TUBE TOPICAL ONE (19:23)
--- NOTE | 2022-05-15 19:23 | P.PN ---
Subjective Progress Note Date: 05/15/22 Patient seen and examined. No complaints, tolerating pain. Moderately well controlled. Continue to try to move his lower extremity and toes. He underwent cardiac evaluation today Objective - Vital Signs Vital signs: Vital Signs Temp 98.2 F 05/15/22 15:08 Pulse 57 L 05/15/22 15:08 Resp 16 05/15/22 15:08 BP 147/77 05/15/22 15:08 Pulse Ox 96 05/15/22 15:08 FiO2 Intake & Output 05/15/22 05/15/22 05/16/22 06:59 18:59 06:59 Intake Total 490 Output Total 1000 1800 Balance -1000 -1310 Intake: Intake, IV Titration 250 Amount Heparin Sod,Pork in 0.45% 250 NaCl 25,000 unit In 0.45 % NaCl 1 250ml.bag @ 12 UNITS/KG/HR 8.491 mls/hr IV .Q24H [facility] Rx#: [id number] Oral 240 Output: Urine 1000 1800 Other: # Voids 2 - Exam Gen. is a pleasant, male in no acute distress sitting at the bedside. Large lower extremity varicosities. Unchanged findings as far as the patchy changes of the medial ankle. Diminished sensation at the heel and toe as previous. - Labs CBC & Chem 7: 05/15/22 05:46 05/15/22 05:46 Labs: Abnormal Lab Results - Last 24 Hours (Table) 05/15/22 05/15/22 05/15/22 Range/Units 05:46 05:46 05:46 Hgb 12.4 L (13.0-17.0) g/dL MCHC 31.3 L (32.0-37.0) g/dL RDW 19.1 H (11.5-14.5) % APTT 43.2 H (22.0-30.0) sec Anion Gap 8.60 L (10.00-18.00) mmol/L 05/15/22 Range/Units 16:00 Hgb (13.0-17.0) g/dL MCHC (32.0-37.0) g/dL RDW (11.5-14.5) % APTT 32.3 H (22.0-30.0) sec Anion Gap (10.00-18.00) mmol/L Assessment and Plan Assessment: Chronic peripheral arterial disease with worsening, [place] 4 peripheral arterial disease Plan: Planning for CryoVein bypass this . Risks and benefits again discussed with the patient. We will place an order for lidocaine cream to the medial ankle as he says it is very superficial and the worst area of discomfort.
[2022-05-15] MEDS: HEPARIN SODIUM 1,000 UN/ML (10ML VL) IV PRN (23:13)
[2022-05-16] MEDS: SODIUM CHLORIDE 0.9% 1,000 ML IV SCH ×3 (02:04→20:41)
[2022-05-16] MEDS: HYDROcodone/APAP 5-325MG 1 EACH TAB PO PRN ×2 (08:07→17:40)
[2022-05-16] MEDS: METOPROLOL SUCCINATE (ER) 25 MG TAB.ER.24H PO SCH (08:07)
[2022-05-16] MEDS: ASPIRIN 81 MG PO SCH (08:07)
[2022-05-16] MEDS ORDERED: LOSARTAN 25 MG TAB PO SCH (09:00)
[2022-05-16 09:26] LABS: HCT 40.1 % (39.6-50.0); HGB 12.3 g/dL (13.0-17.0); MCH 26.5 pg (27.0-32.0); MCHC 30.7 g/dL (32.0-37.0); MCV 86.2 fL (80.0-97.0); Mean Platelet Volume 10.6 fL (9.5-12.2); NRBC Per 100 WBC 0 /100 WBCS (0.0-0.0); Platelet Count 203 X 10*3/uL (140-440); RBC 4.65 X 10*6/uL (4.40-5.60); WBC 5.53 X 10*3/uL (4.50-10.00)
[2022-05-16 09:50] LABS: ALT 20 U/L (10-49); AST 24 U/L (14-35); African American GFR (CKD) 111.7 (60.0-200.0); Albumin 3.9 g/dL (3.8-4.9); Alkaline Phosphatase 82 U/L (41-126); BUN/Creat Ratio 16.63 Ratio (12.00-20.00); Blood Urea Nitrogen 13.3 mg/dL (9.0-27.0); Carbon Dioxide 22.5 mmol/L (20.0-27.5); Chloride 105 mmol/L (96-109); Globulin 2.3 g/dL (1.6-3.3); Glucose 100 mg/dL (70-110); Non-African American GFR(CKD) 96.4 (60.0-200.0); Potassium 4.8 mmol/L (3.5-5.5); Sodium 139 mmol/L (135-145); Total Bilirubin <0.15 mg/dL (0.30-1.20); Total Protein 6.2 g/dL (6.2-8.2)
--- NOTE | 2022-05-16 10:51 | P.PN ---
Subjective Progress Note Date: 05/16/22 HISTORY OF PRESENT ILLNESS: Patient is a 62-year-old male with history of tobacco abuse alcohol use prior atrial fibrillation PAD who presents secondary to numbness pain and discolo ration of the right lower extremity. He denies any history of hypertension and is not taking medication for this however is noted to be hypertensive at 180s systolic on presentation. He had presented last week secondary to increased pain and numbness in his left lower extremity and was found to have occlusion of the SFA and recommended bypass. This was attempted to be performed outpatient however presented back with more lower extremity pain. Initially he states he occasionally has some chest pain however on further questioning states he does not routinely get chest pain and able walk up a flight of stairs without any discomfort or shortness breath. Prior echo from 2019 showed EF 40-45% with mention of inferior hypokinesis. Denies any history of heart failure. Grandfather with history of bypass, mother with a history of carotid artery stenosis. He still does smoke. He did have a history of atrial fibrillation in the past however unclear if this was around the time of heavy alcohol use. Denies any further episodes. No history of stroke or TIA. 05/16/2022 Patient examined this morning at the bedside. Patient denies chest pain or pressure. He denies any shortness of breath. Echocardiogram completed revealing ejection fraction 45%, trace MR, trace TR. Patient underwent Lexiscan stress test yesterday which was negative for ischemia. Patient's vital signs this morning are stable. Blood pressure remains slightly higher with a systolic ranging between 150 and 160. He remains on IV heparin. PHYSICAL EXAM: VITAL SIGNS: Reviewed. GENERAL: Well-developed in no acute distress. NECK: Supple. No JVD or thyromegaly LUNGS: Respirations even and unlabored. Lungs essentially clear to auscultation bilaterally. HEART: Regular rate and rhythm. S1 and S2 heard. EXTREMITIES: Normal range of motion. No clubbing or cyanosis. Dressing to LLE. ASSESSMENT: 1. Acute limb ischemia right lower extremity with SFA occlusion, recommendations for bypass 2. Chronic left lower extremity ulcer 3. Paroxysmal A. fib, one occurrence during 2019 unclear if related to alcohol use 4. Hypertension, not on medications at home 5. Cardiomyopathy ejection fraction 40-45% with mention of inferior hypokinesis, repeat echo revealing ejection fraction 45% and Lexiscan stress test negative for ischemia 6. Borderline diabetes mellitus type 2, hemoglobin A1c 6.1 7. Tobacco abuse 8. Alcohol use 9. Poor follow-up PLAN: Continue current cardiac medications Add losartan 25 mg daily for optimal blood pressure control Continue IV heparin Patient scheduled for Cryovein right fem-tibial bypass 05/18/2022 with vascular surgery No absolute contraindications from a cardiac standpoint for patient to undergo surgery Further recommendations pending patient's course Post discharge follow up with Dr. Mcgrath Nurse practitioner note has been reviewed by physician. Signing provider agrees with the documented findings, assessment, and plan of care. Objective - Vital Signs Vital signs: Vital Signs Temp 97.7 F 05/16/22 07:20 Pulse 60 05/16/22 08:00 Resp 16 05/16/22 08:00 BP 157/72 05/16/22 07:20 Pulse Ox 97 05/16/22 07:20 FiO2 Intake & Output 05/15/22 05/16/22 05/16/22 18:59 06:59 18:59 Intake Total 490 69.819 780 Output Total 1800 1075 600 Balance -1310 -1005.181 180 Intake: Intake, IV Titration 250 69.819 Amount Heparin Sod,Pork in 0.45% 250 69.819 NaCl 25,000 unit In 0.45 % NaCl 1 250ml.bag @ 12 UNITS/KG/HR 8.491 mls/hr IV .Q24H [facility] Rx#: [id number] Oral 240 780 Output: Urine 1800 1075 600 Other: Voiding Method Urinal # Voids 1 - Labs CBC & Chem 7: 05/16/22 06:16 05/16/22 06:16 Labs: Abnormal Lab Results - Last 24 Hours (Table) 05/15/22 05/15/22 05/16/22 Range/Units 16:00 21:42 06:16 Hgb 12.3 L (13.0-17.0) g/dL MCH 26.5 L (27.0-32.0) pg MCHC 30.7 L (32.0-37.0) g/dL RDW 19.0 H (11.5-14.5) % APTT 32.3 H 40.7 H (22.0-30.0) sec Total Bilirubin (0.30-1.20) mg/dL 05/16/22 05/16/22 Range/Units 06:16 06:16 Hgb (13.0-17.0) g/dL MCH (27.0-32.0) pg MCHC (32.0-37.0) g/dL RDW (11.5-14.5) % APTT 63.1 H (22.0-30.0) sec Total Bilirubin <0.15 L (0.30-1.20) mg/dL
[2022-05-16] MEDS: HEPARIN SOD,PORK IN 0.45% NACL 25,000 UNIT in 0.45% NACL 1 250ML.BAG IV SCH (13:08)
[2022-05-16] MEDS ORDERED: ALPRAZolam 0.5 MG TAB PO PRN (15:33)
--- NOTE | 2022-05-16 15:44 | P.PN ---
Subjective Progress Note Date: 05/16/22 Hospital Course: Patient is a very pleasant 62-year-old male with a past medical history of peripheral arterial disease, chronic ulcers, paroxysmal atrial fibrillation, hypertension, diabetes mellitus, and nicotine dependence. He was recently admitted from 05/07/22- 05/09/22 for same complaint of worsening pain/claudication of bilateral lower extremities and was discharged home to follow-up the next morning in the office with Dr. Nuno for vein grafting to plan for scheduled bypass this week. Pt returned to the emergency department on 05/13/22 secondary to his reports of inability to tolerate worsening claudication/pain in his right lower extremity. He was seen and fully evaluated in the emergency department. Labs completed and reviewed. CBC was completed showing normocytic anemia with hemoglobin of 11.7. Coags normal findings. BMP revealing slight elevation of creatinine at 1.26 with baseline creatinine of 0.94. Liver profile is unremarkable. Right lower extremity venous Doppler was completed and radiology report revealing no evidence of DVT in the right lower extremity. EKG also completed showing normal sinus rhythm at 67 bpm with a right bundle branch block and T-wave inversion in inferior leads 2, 3, and aVF. ED physician discussed case with our hospitalist physician and vascular surgeon. Patient was started on a heparin infusion and admitted under our services with consultation to vascular surgery at this time. Physical Exam: Patient seen and examined at bedside this morning. He currently reports controlled lower extremity pain at this current time and denies having any needs or complaints. Patient does report feeling slightly anxious regarding planned bypass on . Vital signs reviewed and stable. General: Nontoxic, no distress and appears stated age. Derm: Skin warm and dry, normal coloration for ethnicity. Bilateral lower extremities cool to touch. Head: Atraumatic, normocephalic and symmetric. Eyes: EOMs intact, no lid lag, and anicteric sclera Mouth: no lip lesions, mucus membranes moist Cardiovascular: regular rate and rhythm with normal S1S2, systolic murmur. Dorsalis pedis pulses nonpalpable bilaterally, trace bilateral lower extremity pitting edema, bilateral femoral pulses palpable. Patient with moderate venous discoloration of bilateral lower extremities and purplish discoloration of right lower extremity worse surrounding medial ankle region. Lungs: Respirations even, regular, and unlabored on room air. Lungs CTA bilaterally, no rhonchi, no rales, no wheezing, and no accessory muscle usage. Abdominal: soft, nontender to palpation, no guarding, no appreciable organomegaly Ext: Movement intact and sensation intact. Venous discoloration of bilateral lower extremities with chronic venous ulcer left lower extremity. Neuro: Speech clear, face symmetrical and CN II-XII grossly intact with no noted focal neuro deficits Psych: Alert and oriented to person, place, time, and situation. Appropriate and pleasant affect. Assessment and Plan of Care: Morning labs reviewed. CBC revealing stable normocytic anemia with hemoglobin of 12.3 and BMP unremarkable. PTT therapeutic at 63.1 Acute on chronic right lower extremity limb ischemia Chronic left lower extremity ulceration Peripheral arterial disease Paroxysmal atrial fibrillation Hypertension Diabetes mellitus with a hemoglobin A1c of 6.1% Nicotine dependence -Vascular surgeon following, and we discussed plan of care. Planning CryoVein bypass of right lower extremity on 05/18/22. -Cardiology evaluated and provided cardiac clearance stating no absolute contraindications from a cardiac standpoint for patient to undergo planned vascular surgery. -PTT therapeutic at 63.1, no changes made to heparin infusion at this time PTT to be completed every 6 hours and heparin infusion will be adjusted accordingly based upon these results. -Continue heparin infusion at 18 units/kg/hr along with aspirin 81 mg daily. -We will continue to monitor CBC closely for close following of hemoglobin while on heparin infusion. -Patient encouraged on smoking cessation and risks of continued use up to and including . -Patient's hemoglobin A1c was elevated at 6.1% during last admission, anticipated after bypass surgery this week patient will need to be discharged home on metformin. CODE STATUS: Full code DVT prophylaxis: Heparin Discussed with: Patient, RN, and vascular surgeon Anticipated discharge date: Clinical course to determine Anticipated discharge place: Home Patient was seen independently by Nurse Pracitioner. This document was prepared using [employer] dictation software. Please allow for errors in import/export clerk, while rare they do occur. I reviewed the documentation as provided by the MAKENZIE above, who is the original author of this note. I agree with the documented assessment and plan, with the following changes: none Objective - Vital Signs Vital signs: Vital Signs Temp 97.7 F 05/16/22 07:20 Pulse 60 05/16/22 07:30 Resp 16 05/16/22 07:20 BP 157/72 05/16/22 07:20 Pulse Ox 97 05/16/22 07:20 FiO2 Intake & Output 05/15/22 05/16/22 05/16/22 18:59 06:59 18:59 Intake Total 490 69.819 540 Output Total 1800 1075 600 Balance -1310 -1005.181 -60 Intake: Intake, IV Titration 250 69.819 Amount Heparin Sod,Pork in 0.45% 250 69.819 NaCl 25,000 unit In 0.45 % NaCl 1 250ml.bag @ 12 UNITS/KG/HR 8.491 mls/hr IV .Q24H [facility] Rx#: [id number] Oral 240 540 Output: Urine 1800 1075 600 Other: Voiding Method Urinal # Voids 1 - Labs CBC & Chem 7: 05/19/22 06:59 05/19/22 06:59 Labs: Abnormal Lab Results - Last 24 Hours (Table) 05/15/22 05/15/22 05/15/22 Range/Units 05:46 05:46 16:00 Hgb 12.4 L (13.0-17.0) g/dL MCHC 31.3 L (32.0-37.0) g/dL RDW 19.1 H (11.5-14.5) % APTT 32.3 H (22.0-30.0) sec Anion Gap 8.60 L (10.00-18.00) mmol/L 05/15/22 05/16/22 Range/Units 21:42 06:16 Hgb (13.0-17.0) g/dL MCHC (32.0-37.0) g/dL RDW (11.5-14.5) % APTT 40.7 H 63.1 H (22.0-30.0) sec Anion Gap (10.00-18.00) mmol/L
--- NOTE | 2022-05-16 16:34 | P.PN ---
Subjective Progress Note Date: 05/16/22 Patient seen and examined. No complaints, tolerating pain. Moderately well controlled. Continue to try to move his lower extremity and toes Objective - Vital Signs Vital signs: Vital Signs Temp 97.8 F 05/16/22 14:47 Pulse 60 05/16/22 14:47 Resp 16 05/16/22 14:47 BP 148/76 05/16/22 14:47 Pulse Ox 98 05/16/22 14:47 FiO2 Intake & Output 05/15/22 05/16/22 05/16/22 18:59 06:59 18:59 Intake Total 490 69.819 1078.181 Output Total 1800 1075 2050 Balance -1310 -1005.181 -971.819 Intake: Intake, IV Titration 250 69.819 180.181 Amount Heparin Sod,Pork in 0.45% 250 69.819 180.181 NaCl 25,000 unit In 0.45 % NaCl 1 250ml.bag @ 12 UNITS/KG/HR 8.491 mls/hr IV .Q24H [facility] Rx#: [id number] Oral 240 898 Output: Urine 1800 1075 2050 Other: Voiding Method Urinal # Voids 1 - Exam Gen. is a pleasant, male in no acute distress sitting at the bedside. Large lower extremity varicosities. Unchanged findings as far as the patchy changes of the medial ankle. Diminished sensation at the heel and toe as previous. - Labs CBC & Chem 7: 05/16/22 06:16 05/16/22 06:16 Labs: Abnormal Lab Results - Last 24 Hours (Table) 05/15/22 05/16/22 05/16/22 Range/Units 21:42 06:16 06:16 Hgb 12.3 L (13.0-17.0) g/dL MCH 26.5 L (27.0-32.0) pg MCHC 30.7 L (32.0-37.0) g/dL RDW 19.0 H (11.5-14.5) % APTT 40.7 H (22.0-30.0) sec Total Bilirubin <0.15 L (0.30-1.20) mg/dL 05/16/22 05/16/22 Range/Units 06:16 14:16 Hgb (13.0-17.0) g/dL MCH (27.0-32.0) pg MCHC (32.0-37.0) g/dL RDW (11.5-14.5) % APTT 63.1 H 33.7 H (22.0-30.0) sec Total Bilirubin (0.30-1.20) mg/dL Assessment and Plan Assessment: Chronic peripheral arterial disease with worsening, [place] 4 peripheral arterial disease Plan: Planning for CryoVein bypass this . Risks and benefits again discussed with the patient. Was able to try the lidocaine 1 time, thinks it did help mildly, will continue.
[2022-05-16] MEDS: HEPARIN SODIUM 1,000 UN/ML (10ML VL) IV PRN (17:27)
[2022-05-17] MEDS: HYDROcodone/APAP 5-325MG 1 EACH TAB PO PRN ×3 (00:21→17:22)
[2022-05-17] MEDS: SODIUM CHLORIDE 0.9% 1,000 ML IV SCH ×2 (03:07→19:51)
[2022-05-17] MEDS: HEPARIN SOD,PORK IN 0.45% NACL 25,000 UNIT in 0.45% NACL 1 250ML.BAG IV SCH ×2 (06:15→22:51)
[2022-05-17 08:59] LABS: HCT 40.3 % (39.6-50.0); HGB 12.4 g/dL (13.0-17.0); MCH 26.4 pg (27.0-32.0); MCHC 30.8 g/dL (32.0-37.0); MCV 85.9 fL (80.0-97.0); Mean Platelet Volume 10.6 fL (9.5-12.2); NRBC Per 100 WBC 0 /100 WBCS (0.0-0.0); Platelet Count 207 X 10*3/uL (140-440); RBC 4.69 X 10*6/uL (4.40-5.60); WBC 5.74 X 10*3/uL (4.50-10.00)
[2022-05-17] MEDS ORDERED: LOSARTAN 50 MG TAB PO SCH (09:00)
[2022-05-17] MEDS: ASPIRIN 81 MG PO SCH (09:07)
[2022-05-17] MEDS: METOPROLOL SUCCINATE (ER) 25 MG TAB.ER.24H PO SCH (09:07)
[2022-05-17 09:20] LABS: African American GFR (CKD) 111.7 (60.0-200.0); Albumin 3.8 g/dL (3.8-4.9); Albumin/Globulin Ratio 1.73 (1.60-3.17); Anion Gap 8.2 mmol/L (10.00-18.00); BUN/Creat Ratio 19.13 Ratio (12.00-20.00); Blood Urea Nitrogen 15.3 mg/dL (9.0-27.0); Calcium 9.1 mg/dL (8.7-10.3); Carbon Dioxide 25.8 mmol/L (20.0-27.5); Globulin 2.2 g/dL (1.6-3.3); Non-African American GFR(CKD) 96.4 (60.0-200.0); Potassium 4.4 mmol/L (3.5-5.5); Total Bilirubin 0.2 mg/dL (0.30-1.20)
--- NOTE | 2022-05-17 09:33 | P.PN ---
Subjective Progress Note Date: 05/17/22 HISTORY OF PRESENT ILLNESS: Patient is a 62-year-old male with history of tobacco abuse alcohol use prior atrial fibrillation PAD who presents secondary to numbness pain and discolo ration of the right lower extremity. He denies any history of hypertension and is not taking medication for this however is noted to be hypertensive at 180s systolic on presentation. He had presented last week secondary to increased pain and numbness in his left lower extremity and was found to have occlusion of the SFA and recommended bypass. This was attempted to be performed outpatient however presented back with more lower extremity pain. Initially he states he occasionally has some chest pain however on further questioning states he does not routinely get chest pain and able walk up a flight of stairs without any discomfort or shortness breath. Prior echo from 2019 showed EF 40-45% with mention of inferior hypokinesis. Denies any history of heart failure. Grandfather with history of bypass, mother with a history of carotid artery stenosis. He still does smoke. He did have a history of atrial fibrillation in the past however unclear if this was around the time of heavy alcohol use. Denies any further episodes. No history of stroke or TIA. 05/16/2022 Patient examined this morning at the bedside. Patient denies chest pain or pressure. He denies any shortness of breath. Echocardiogram completed revealing ejection fraction 45%, trace MR, trace TR. Patient underwent Lexiscan stress test yesterday which was negative for ischemia. Patient's vital signs this morning are stable. Blood pressure remains slightly higher with a systolic ranging between 150 and 160. He remains on IV heparin. 05/17/2022 Patient examined this morning at the bedside. Patient denies chest pain or pressure. Denies SOB. Blood pressure remains slightly elevated this morning with a SBP in the 150s. PHYSICAL EXAM: VITAL SIGNS: Reviewed. GENERAL: Well-developed in no acute distress. NECK: Supple. No JVD or thyromegaly LUNGS: Respirations even and unlabored. Lungs essentially clear to auscultation bilaterally. HEART: Regular rate and rhythm. S1 and S2 heard. EXTREMITIES: Normal range of motion. No clubbing or cyanosis. Dressing to LLE. ASSESSMENT: 1. Acute limb ischemia right lower extremity with SFA occlusion, recommendations for bypass 2. Chronic left lower extremity ulcer 3. Paroxysmal A. fib, one occurrence during 2019 unclear if related to alcohol use 4. Hypertension, not on medications at home 5. Cardiomyopathy ejection fraction 40-45% with mention of inferior hypokinesis, repeat echo revealing ejection fraction 45% and Lexiscan stress test negative for ischemia 6. Borderline diabetes mellitus type 2, hemoglobin A1c 6.1 7. Tobacco abuse 8. Alcohol use 9. Poor follow-up PLAN: Continue current cardiac medications Increase losartan to 50 mg daily for optimal blood pressure control Continue IV heparin Patient scheduled for Cryovein right fem-tibial bypass 05/18/2022 with vascular surgery No absolute contraindications from a cardiac standpoint for patient to undergo surgery We will follow on an as needed basis. Please call with questions or concerns. Post discharge follow up with Dr. Mcgrath Nurse practitioner note has been reviewed by physician. Signing provider agrees with the documented findings, assessment, and plan of care. Objective - Vital Signs Vital signs: Vital Signs Temp 97.8 F 05/17/22 06:25 Pulse 59 L 05/17/22 09:14 Resp 18 05/17/22 06:25 BP 158/78 05/17/22 06:25 Pulse Ox 96 05/17/22 06:25 FiO2 Intake & Output 05/16/22 05/17/22 05/17/22 18:59 06:59 18:59 Intake Total 1249.889 194.329 120 Output Total 2049 2700 900 Balance -800.111 -0895.671 -231 Intake: Intake, IV Titration 233.889 194.329 Amount Heparin Sod,Pork in 0.45% 233.889 194.329 NaCl 25,000 unit In 0.45 % NaCl 1 250ml.bag @ 12 UNITS/KG/HR 8.491 mls/hr IV .Q24H [facility] Rx#: [id number] Oral 1016 120 Output: Urine 2049 2700 900 Other: Voiding Method Urinal Urinal # Voids 2 2 - Labs CBC & Chem 7: 05/17/22 05:26 05/17/22 05:26 Labs: Abnormal Lab Results - Last 24 Hours (Table) 05/16/22 05/16/22 05/16/22 Range/Units 06:16 14:16 23:30 Hgb (13.0-17.0) g/dL MCH (27.0-32.0) pg MCHC (32.0-37.0) g/dL RDW (11.5-14.5) % APTT 33.7 H 94.4 H (22.0-30.0) sec Anion Gap (10.00-18.00) mmol/L Total Bilirubin <0.15 L (0.30-1.20) mg/dL Total Protein (6.2-8.2) g/dL 05/17/22 05/17/22 05/17/22 Range/Units 05:26 05:26 05:26 Hgb 12.4 L (13.0-17.0) g/dL MCH 26.4 L (27.0-32.0) pg MCHC 30.8 L (32.0-37.0) g/dL RDW 19.0 H (11.5-14.5) % APTT 74.9 H (22.0-30.0) sec Anion Gap 8.20 L (10.00-18.00) mmol/L Total Bilirubin 0.20 L (0.30-1.20) mg/dL Total Protein 6.0 L (6.2-8.2) g/dL
--- NOTE | 2022-05-17 13:15 | P.PN ---
Subjective Progress Note Date: 05/17/22 Hospital Course: 62-year-old male with a past medical history of peripheral arterial disease, chronic ulcers, paroxysmal atrial fibrillation, hypertension, diabetes mellitus, and nicotine dependence. He was recently admitted from 05/07/22- 05/09/22 for same complaint of worsening pain/claudication of bilateral lower extremities and was discharged home to follow-up the next morning in the office with Dr. Nuno for vein grafting to plan for scheduled bypass this week. Pt returned to the emergency department on 05/13/22 secondary to his reports of inability to tolerate worsening claudication/pain in his right lower extremity. He was seen and fully evaluated in the emergency department. Labs completed and reviewed. CBC was completed showing normocytic anemia with hemoglobin of 11.7. Coags normal findings. BMP revealing slight elevation of creatinine at 1.26 with baseline creatinine of 0.94. Liver profile is unremarkable. Right lower extremity venous Doppler was completed and radiology report revealing no evidence of DVT in the right lower extremity. EKG also completed showing normal sinus rhythm at 67 bpm with a right bundle branch block and T-wave inversion in inferior leads 2, 3, and aVF. Patient was started on a heparin infusion and admitted under our services with consultation to vascular surgery at this time. Cardiology was consulted for clearance. Lexiscan stress test showed no scintigraphic evidence of reversible ischemia. Echocardiogram showed LVEF 45%, mild TR, trace MR, moderately dilated left atrium. Subjective: Patient seen and examined at bedside. No acute events overnight. He claims that he has pain in his lower extremities, but improving. He denies any other complaints. Pertinent positives and negatives as discussed above, a complete review of systems was performed and all other systems are negative. Vitals Signs Reviewed. General: Nontoxic, no distress and appears stated age. Derm: Skin warm and dry, normal coloration for ethnicity. Bilateral lower extremities cool to touch. Head: Atraumatic, normocephalic and symmetric. Eyes: EOMs intact, no lid lag, and anicteric sclera Mouth: no lip lesions, mucus membranes moist Cardiovascular: regular rate and rhythm with normal S1S2, systolic murmur. Dorsalis pedis pulses nonpalpable bilaterally, trace bilateral lower extremity pitting edema, bilateral femoral pulses palpable. Patient with moderate venous discoloration of bilateral lower extremities and purplish discoloration of right lower extremity worse surrounding medial ankle region. Lungs: Respirations even, regular, and unlabored on room air. Lungs CTA bilaterally, no rhonchi, no rales, no wheezing, and no accessory muscle usage. Abdominal: soft, nontender to palpation, no guarding, no appreciable or ganomegaly Ext: Movement intact and sensation intact. Venous discoloration of bilateral lower extremities with chronic venous ulcer left lower extremity. Neuro: Speech clear, face symmetrical and CN II-XII grossly intact with no noted focal neuro deficits Psych: Alert and oriented to person, place, time, and situation. Appropriate and pleasant affect. Data Reviewed Today: Pertinent Labs: Hemoglobin 12.4, APTT 74.9, creatinine 0.8 Assessment and Plan: Acute on chronic right lower extremity limb ischemia Chronic left lower extremity ulceration Peripheral arterial disease Paroxysmal atrial fibrillation Hypertension Prediabetes, hemoglobin A1c of 6.1% Nicotine dependence -Pain control with oral [place] and IV morphine 4 mg every 4 hours as needed for severe breakthrough pain -Vascular surgeon following, Planning CryoVein bypass of right lower extremity on 05/18/22. -Cardiology note reviewed: Increased losartan to 50 mg -PTT therapeutic at 74.9, no changes made to heparin infusion at this time PTT to be completed every 6 hours and heparin infusion will be adjusted accordingly based upon these results, monitor for any active bleeding -On aspirin 81 mg daily, atorvastatin 20 mg -We will continue to monitor CBC closely for close following of hemoglobin while on heparin infusion. -Continue lifestyle and dietary modifications repeat diabetes -Patient encouraged on smoking cessation and risks of continued use up to and including . DVT ppx: Heparin drip Code status: Full Code Anticipated discharge place: Pending clinical course Anticipated discharge time: Pending clinical course Objective - Vital Signs Vital signs: Vital Signs Temp 97.8 F 05/17/22 06:25 Pulse 59 L 05/17/22 09:14 Resp 18 05/17/22 06:25 BP 158/78 05/17/22 06:25 Pulse Ox 96 05/17/22 06:25 FiO2 Intake & Output 05/16/22 05/17/22 05/17/22 18:59 06:59 18:59 Intake Total 1249.889 194.329 238 Output Total 2050 2700 900 Balance -800.280 -9419.144 -627 Intake: Intake, IV Titration 233.889 194.329 Amount Heparin Sod,Pork in 0.45% 233.889 194.329 NaCl 25,000 unit In 0.45 % NaCl 1 250ml.bag @ 12 UNITS/KG/HR 8.491 mls/hr IV .Q24H [facility] Rx#: [id number] Oral 1016 238 Output: Urine 2050 2700 900 Other: Voiding Method Urinal Urinal # Voids 2 2 - Labs CBC & Chem 7: 05/17/22 05:26 05/17/22 05:26 Labs: Abnormal Lab Results - Last 24 Hours (Table) 05/16/22 05/16/22 05/17/22 Range/Units 14:16 23:30 05:26 Hgb 12.4 L (13.0-17.0) g/dL MCH 26.4 L (27.0-32.0) pg MCHC 30.8 L (32.0-37.0) g/dL RDW 19.0 H (11.5-14.5) % APTT 33.7 H 94.4 H (22.0-30.0) sec Anion Gap (10.00-18.00) mmol/L Total Bilirubin (0.30-1.20) mg/dL Total Protein (6.2-8.2) g/dL 05/17/22 05/17/22 Range/Units 05:26 05:26 Hgb (13.0-17.0) g/dL MCH (27.0-32.0) pg MCHC (32.0-37.0) g/dL RDW (11.5-14.5) % APTT 74.9 H (22.0-30.0) sec Anion Gap 8.20 L (10.00-18.00) mmol/L Total Bilirubin 0.20 L (0.30-1.20) mg/dL Total Protein 6.0 L (6.2-8.2) g/dL
[2022-05-17] MEDS: ATORVASTATIN 20 MG TAB PO SCH (19:52)
--- NOTE | 2022-05-17 20:21 | P.PN ---
Subjective Progress Note Date: 05/17/22 Patient seen and examined. No complaints, tolerating pain. Moderately well controlled. Continue to try to move his lower extremity and toes. The area of pain still is mostly at the medial ankle Objective - Vital Signs Vital signs: Vital Signs Temp 98.0 F 05/17/22 19:55 Pulse 53 L 05/17/22 19:56 Resp 18 05/17/22 19:56 BP 167/77 05/17/22 19:55 Pulse Ox 97 05/17/22 19:55 FiO2 Intake & Output 05/17/22 05/17/22 05/18/22 06:59 18:59 06:59 Intake Total 194.329 238 Output Total 2700 2100 Balance -2505.671 -1862 Intake: Intake, IV Titration 194.329 Amount Heparin Sod,Pork in 0.45% 194.329 NaCl 25,000 unit In 0.45 % NaCl 1 250ml.bag @ 12 UNITS/KG/HR 8.491 mls/hr IV .Q24H [facility] Rx#: [id number] Oral 238 Output: Urine 2700 2100 Other: Voiding Method Urinal Urinal # Voids 2 2 1 - Exam Gen. is a pleasant, male in no acute distress sitting at the bedside. Large lo wer extremity varicosities. Unchanged findings as far as the patchy changes of the medial ankle. Diminished sensation at the heel and toe as previous. - Labs CBC & Chem 7: 05/17/22 05:26 05/17/22 05:26 Labs: Abnormal Lab Results - Last 24 Hours (Table) 05/16/22 05/17/22 05/17/22 Range/Units 23:30 05:26 05:26 Hgb 12.4 L (13.0-17.0) g/dL MCH 26.4 L (27.0-32.0) pg MCHC 30.8 L (32.0-37.0) g/dL RDW 19.0 H (11.5-14.5) % APTT 94.4 H (22.0-30.0) sec Anion Gap 8.20 L (10.00-18.00) mmol/L Total Bilirubin 0.20 L (0.30-1.20) mg/dL Total Protein 6.0 L (6.2-8.2) g/dL 05/17/22 Range/Units 05:26 Hgb (13.0-17.0) g/dL MCH (27.0-32.0) pg MCHC (32.0-37.0) g/dL RDW (11.5-14.5) % APTT 74.9 H (22.0-30.0) sec Anion Gap (10.00-18.00) mmol/L Total Bilirubin (0.30-1.20) mg/dL Total Protein (6.2-8.2) g/dL Assessment and Plan Assessment: Chronic peripheral arterial disease with worsening, Castine 4 peripheral arterial disease Plan: Planning for CryoVein bypass tomorrow. Risks and benefits again discussed with the patient. We'll continue to utilize the lidocaine at the medial ankle. Type and screen ordered. Nothing by mouth after midnight.
[2022-05-18] MEDS: HYDROcodone/APAP 5-325MG 1 EACH TAB PO PRN (02:36)
[2022-05-18] MEDS: SODIUM CHLORIDE 0.9% 1,000 ML IV SCH ×2 (04:50→14:49)
[2022-05-18] MEDS ORDERED: DEXAMETHASONE SOD PHOSPHATE 4 MG/ML 1 ML VIAL IV ONE (05:36)
[2022-05-18] MEDS ORDERED: LIDOCAINE 1% (10MG/ML) FOR IV START INTRADERMA PRN (05:36)
[2022-05-18] MEDS ORDERED: ONDANSETRON 4 MG/2 ML VIAL IVP ONE ×2 (05:36→07:23)
[2022-05-18] MEDS ORDERED: LACTATED RINGERS 1,000 ML IV SCH (05:36)
[2022-05-18] MEDS ORDERED: LACTATED RINGERS 1,000 ML IV ONE ×2 (06:06→10:15)
[2022-05-18] MEDS ORDERED: HYDROmorphone 0.5 MG/0.5 ML SYRINGE IVP PRN (07:00)
[2022-05-18] MEDS ORDERED: PROPOFOL 10 MG/ML 20 ML VIAL IV ONE (07:25)
[2022-05-18] MEDS ORDERED: ceFAZolin 1,000 MG VIAL ONE (07:25)
[2022-05-18] MEDS ORDERED: MIDAZOLAM 2 MG/2 ML VIAL ONE (07:25)
[2022-05-18] MEDS ORDERED: SUCCINYLCHOLINE CHLORIDE 200 MG/10 ML VIAL IV ONE (07:25)
[2022-05-18] MEDS ORDERED: PHENYLEPHRINE-0.9% NACL SYG 1,000 MCG/10 ML SYRINGE ONE (07:25)
[2022-05-18] MEDS ORDERED: LIDOCAINE 2% INJ 20 MG/ML (2 ML VIAL) ONE (07:25)
[2022-05-18] MEDS ORDERED: GLYCOPYRROLATE 0.2 MG/ML 2 ML VIAL ONE (07:25)
[2022-05-18] MEDS ORDERED: NEOSTIGMINE 1 MG/ML 10 ML VIAL ONE (07:25)
[2022-05-18] MEDS ORDERED: HEPARIN SODIUM,PORCINE 10,000 UNIT/ML 1 ML VIAL ONE (07:25)
[2022-05-18] MEDS ORDERED: ePHEDrine 50 MG/ML 1 ML VIAL ONE (07:25)
[2022-05-18] MEDS ORDERED: ROCURONIUM 10 MG/ML (5 ML VIAL) IV ONE (07:25)
[2022-05-18] MEDS ORDERED: WATER FOR INJECTION, STERILE 10 ML VIAL IV ONE (07:25)
[2022-05-18] MEDS ORDERED: SODIUM CHLORIDE 0.9% 100 ML BAG ONE (07:25)
[2022-05-18] MEDS ORDERED: fentaNYL (PF) 50 MCG/ML 2 ML AMP ONE (07:25)
[2022-05-18] MEDS ORDERED: HEPARIN SODIUM IRRIGATION ONE ×2 (07:46)
[2022-05-18] MEDS ORDERED: LACTATED RINGERS IRRIGATION ONE ×2 (07:46)
[2022-05-18] MEDS ORDERED: DEXTROSE 5%-LACTATED RINGERS 1,000 ML IV ONE (07:55)
[2022-05-18] MEDS ORDERED: SODIUM CHLORIDE 0.9% 50 ML with ceFAZolin 2,000 MG IV ONE ×2 (08:00)
[2022-05-18] MEDS ORDERED: ceFAZolin 1,000 MG in SODIUM CHLORIDE 0.9% 1,000 ML IRRIGATION ONE (09:00)
--- NOTE | 2022-05-18 09:40 | P.PN ---
Progress Note - Text Progress Note Date: 05/18/22 Patient off the floor for surgery during cardiology rounds. However, BP remains elevated on documentation. Will increase Losartan to 100mg daily and re-evaluate patient tomorrow.
[2022-05-18] MEDS ORDERED: GELATIN SPONGE,ABSORB (LARGE) 1 EACH SPONGE TOPICAL ONE (10:13)
[2022-05-18] MEDS ORDERED: THROMBIN (BOVINE) 5,000 UNIT VIAL TOPICAL ONE (10:13)
--- NOTE | 2022-05-18 11:38 | P.OP ---
Date of Procedure: 05/18/22 Description of Procedure: Preoperative diagnosis: Se for severe peripheral arterial disease, critical limb ischemia, superficial femoral artery occlusion, popliteal artery occlusion Postoperative diagnosis: Same Procedure: Right femoral to anterior tibial artery bypass with CryoVein Surgeon: Karolina Nuno D.O. Sql Developer: Quyen EBL: 1 50 mL] IV fluids: See records Drains: None Urine output: See records Specimen: Right femoral node Complications: None Condition: Stable, extubated in the OR to PACU Operative indication and findings: The patient is a 62-year-old male. He has severe peripheral arterial disease and a few years ago had multiple episodes of thrombolytics and then repeat stenting. He was lost to follow-up for a few years but then subsequently re-presented with severe worsening of his right lower extremity. He was found to be chronic worsening of his arterial disease. Imaging was performed showing midcalf reconstitution of the tibial vessels therefore the decision was made to go forward with a femoral anterior tibial vessel bypass. Risks and benefits were discussed including but not limited to bleeding, infection, limb loss, heart attack, poor wound healing and . The patient seemingly understood and was willing to proceed. Procedure in detail: Patient taken to the operative suite placed in supine position and intubated. A Nuno catheter was placed. The abdomen and right lower extremity prepped and draped in usual sterile fashion. A preprocedure timeout was performed and all parties are in agreement. An oblique incision was made in the right groin with the scalpel. It was deepened through subcutaneous tissues with electrocautery. The encountered lymphatics were ligated and divided. The femoral sheath was opened sharply. The common femoral artery was dissected free circumferentially. The dissection was extended proximally to the level of the inguinal ligament. The common femoral artery was encircled with vessel loops proximally and distally. It appeared a very long common femoral artery.. Attention was then turned towards the below-knee incision. It was made in the lateral border of the tibia, between the fibula. The intermuscular septum was identified and dissection was carried down through the fascial plane, beyond the anterior tibialis muscle. The neurovascular bundle was identified. An intramuscular branch the vein was clipped and divided. The lateral anterior tibial vein was dissected free from the artery, it was found to be problematic therefore portion was clipped and transected. The anterior tibial artery was then encircled proximally and distally. Doppler was used to ensure flow at the vessel. The cadaver vein was prepped. A tunnel laterally was performed and the vein was placed. At that point the patient was heparinized and ACT is were followed. Once heparinization was adequate, flow was occluded through the vessel. An 11 blade was utilized and arteriotomy is made the Patrick-Dukes scissors was utilized to enlarge the arteriotomy. There was good inflow from the proximal artery. . An anastomosis created using 5-0 Prolene between the femoral artery and the cadaver vein. An arteriotomy of the anterior tibial artery was then performed. There was evidence of good backbleeding. The vein was cut to size and spatulated. Utilizing 6-0 Prolene an anastomosis was created. Hemostasis was achieved with interrupted sutures of 6-0 Prolene and Surgicel. At this point all anastomoses were completed and flow was resumed through the bypass graft. A Doppler was utilized to confirm multiphasic flow distally to the anastomosis. The patient had a palpable dorsalis pedis at this time. The wound was copiously irrigated with antibiotic solution. The femoral sheath was reapproximated with interrupted sutures of 3-0 Vicryl. The subcuticular tissue was reapproximated with 3-0 Vicryl. The skin was reprepped with running sutures of 4-0 Monocryl. The deep dermal tissues of the lateral incision at the calf were reapproximated with 3-0 Vicryl. The subcutaneous tissues were reapproximated with 3-0 Vicryl and the skin was reapproximated with running 4-0 Monocryl in subcuticular fashion. Dressings were placed. The patient was extubated and transferred to recovery in stable condition having tolerated the procedure well.
--- NOTE | 2022-05-18 13:38 | P.ANPRN ---
Procedure Note - Anesthesia - Invasive Line Left Arterial Line Time Out Performed: Yes (07) Date of Procedure: 05/18/22 Location of Patient: PreOp Preparation: Sterile Prep, Sterile Dressing Arterial Line Location: Radial Ultrasound Used: No Purpose - Visualization and Identification of Vasculature: No Narrative: Central line placement per sterile protocol utilized. Informed consent obtained from the patient. Procedure was performed under complete aseptic precautions. The left wrist is slightly extended and placed on a roll of cloth. Radial artery palpated and appeared to have a intact collateral circulation. Front of the wrist was cleaned with ChloraPrep. It was draped and 2 mL of 1% lidocaine was infiltrated and ability into the front of the wrist. A 20-gauge two and half inch Arrow arterial catheter was inserted and a bright red blood/back was noticed. It was connected to the pressure monitoring line and the flashback was confirmed. The line was sutured into the skin. Tegaderm dressing was applied. Patient tolerated the procedure very well with no apparent complications.
[2022-05-18] MEDS: LACTATED RINGERS 1,000 ML IV SCH (14:16)
[2022-05-18] MEDS: ASPIRIN 81 MG PO SCH (14:17)
[2022-05-18] MEDS: METOPROLOL SUCCINATE (ER) 25 MG TAB.ER.24H PO SCH (14:43)
[2022-05-18] MEDS: LOSARTAN 50 MG TAB PO SCH (14:43)
[2022-05-18] MEDS: MORPHINE SULFATE 4 MG/ML SYRINGE IV PRN ×2 (14:47→21:18)
--- NOTE | 2022-05-18 16:02 | P.PN ---
Subjective Progress Note Date: 05/18/22 Patient is a 62-year-old male with peripheral arterial disease, chronic ulcers, paroxysmal atrial fibrillation, hypertension, and diabetes mellitus who presented to the ED due to worsening claudicatio and pain. He was recently admitted from 05/07/22- 05/09/22 for same complaint and was discharged home to follow-up with Dr. Nuno for vein grafting and bypass. In the emergency Department patient underwent laboratory analysis was remarkable for hemoglobin 11.9, creatinine 1.26 (baseline 0.94). He underwent a right lower extremity venous Doppler which showed no evidence of DVT in the right lower extremity. He was started on a heparin per vascular surgery recommendations and was admitted for further monitoring. Vascular surgery recommneded cryovein bypass, which was completed on 05/18/22. Patient seen and examined at bedside. He denies any pain, he is feeling somewhat tired. He denies any shortness of breath, chest pain, nausea, vomiting, lightheadedness. Vital signs reviewed General: nontoxic, no distress, appears at stated age Cardiovascular: S1S2 reg, no murmur, positive dorsalis pedis on the right, Lungs: CTA bilateral, no rhonchi, no rales , no accessory muscle use Abdominal: soft, nontender to palpation, no guarding, no appreciable organomegaly Ext: no gross muscle atrophy, no edema, no contractures Neuro: CN II-XI grossly intact, no focal neuro deficits Psych: Alert, oriented, appropriate affect Assessment: Acute on chronic right lower extremity limb ischemia s/p CryoVein bypass of right lower extremity Chronic left lower extremity ulceration Peripheral arterial disease Paroxysmal atrial fibrillation Hypertension Prediabetes, hemoglobin A1c of 6.1% Nicotine dependence Imaging: None new Data Review: Vital signs reviewed from this morning. Temperature 90.8, pulse 48, respirations 16, blood pressure 187/91, O2 sat 98% on room air Plan: -Given the nature of his bypass will need repeat CBC and basic metabolic profile in a.m. -Case discussed with Dr. Nuno. Patient did well intraoperatively without any immediate postoperative complications. He will be continued on heparin drip. -Continue with Wilson 5/325 and Dilaudid as needed for pain postoperatively. -Continue to follow blood pressures closely. Continue with Cozaar 100 mg daily, metoprolol 25 mg daily -On aspirin 81 mg daily, atorvastatin 20 mg -We will continue to monitor CBC closely for close following of hemoglobin while on heparin infusion. - A1C in 3 months as outpatient - tobacco cessation DVT prophylaxis: Heparin gtt Anticipated discharge date: Pending Clinical Course Anticipated discharge place: Pending Clinical Course This dictation was prepared using [employer] voice recognition software. Though every attempt is made to correct errors during during dictation some may still exist. Objective - Vital Signs Vital signs: Vital Signs Temp 98.0 F 05/18/22 06:14 Pulse 48 L 05/18/22 06:14 Resp 16 05/18/22 06:14 BP 187/91 05/18/22 06:14 Pulse Ox 98 05/18/22 06:14 FiO2 Intake & Output 05/17/22 05/18/22 05/18/22 18:59 06:59 18:59 Intake Total 238 337.745 50 Output Total 2100 1000 Balance -1862 -662.255 50 Intake: IV 100 50 Intake, IV Titration 237.745 Amount Heparin Sod,Pork in 0.45% 237.745 NaCl 25,000 unit In 0.45 % NaCl 1 250ml.bag @ 12 UNITS/KG/HR 8.491 mls/hr IV .Q24H [facility] Rx#: [id number] Oral 238 Output: Urine 2100 1000 Other: Voiding Method Urinal # Voids 2 1 - Labs CBC & Chem 7: 05/17/22 05:26 05/17/22 05:26 Labs: Abnormal Lab Results - Last 24 Hours (Table) 05/17/22 05/17/22 Range/Units 05:26 05:26 Hgb 12.4 L (13.0-17.0) g/dL MCH 26.4 L (27.0-32.0) pg MCHC 30.8 L (32.0-37.0) g/dL RDW 19.0 H (11.5-14.5) % Anion Gap 8.20 L (10.00-18.00) mmol/L Total Bilirubin 0.20 L (0.30-1.20) mg/dL Total Protein 6.0 L (6.2-8.2) g/dL
[2022-05-18] MEDS: ATORVASTATIN 20 MG TAB PO SCH (20:48)
[2022-05-18] MEDS: RIVAROXABAN 2.5 MG TABLET PO SCH (20:49)
[2022-05-19] MEDS: SODIUM CHLORIDE 0.9% 1,000 ML IV SCH ×3 (01:24→22:20)
[2022-05-19] MEDS: HYDROcodone/APAP 5-325MG 1 EACH TAB PO PRN ×2 (02:21→10:34)
[2022-05-19 07:48] VITALS: BMI 22.0
[2022-05-19] MEDS: LOSARTAN 50 MG TAB PO SCH (08:41)
[2022-05-19] MEDS: METOPROLOL SUCCINATE (ER) 25 MG TAB.ER.24H PO SCH (08:42)
[2022-05-19] MEDS: RIVAROXABAN 2.5 MG TABLET PO SCH ×2 (08:42→20:26)
[2022-05-19] MEDS: CLOPIDOGREL 75 MG TAB PO SCH (08:42)
[2022-05-19] MEDS: ASPIRIN 81 MG PO SCH (08:48)
--- NOTE | 2022-05-19 09:57 | P.PN ---
Subjective Progress Note Date: 05/19/22 HISTORY OF PRESENT ILLNESS: Patient is a 62-year-old male with history of tobacco abuse alcohol use prior atrial fibrillation PAD who presents secondary to numbness pain and discolo ration of the right lower extremity. He denies any history of hypertension and is not taking medication for this however is noted to be hypertensive at 180s systolic on presentation. He had presented last week secondary to increased pain and numbness in his left lower extremity and was found to have occlusion of the SFA and recommended bypass. This was attempted to be performed outpatient however presented back with more lower extremity pain. Initially he states he occasionally has some chest pain however on further questioning states he does not routinely get chest pain and able walk up a flight of stairs without any discomfort or shortness breath. Prior echo from 2019 showed EF 40-45% with mention of inferior hypokinesis. Denies any history of heart failure. Grandfather with history of bypass, mother with a history of carotid artery stenosis. He still does smoke. He did have a history of atrial fibrillation in the past however unclear if this was around the time of heavy alcohol use. Denies any further episodes. No history of stroke or TIA. 05/16/2022 Patient examined this morning at the bedside. Patient denies chest pain or pressure. He denies any shortness of breath. Echocardiogram completed revealing ejection fraction 45%, trace MR, trace TR. Patient underwent Lexiscan stress test yesterday which was negative for ischemia. Patient's vital signs this morning are stable. Blood pressure remains slightly higher with a systolic ranging between 150 and 160. He remains on IV heparin. 05/17/2022 Patient examined this morning at the bedside. Patient denies chest pain or pressure. Denies SOB. Blood pressure remains slightly elevated this morning with a SBP in the 150s. 05/19/2022 patient examined this morning to bedside. Patient denies chest pain or pressure. He denies shortness of breath. Patient's blood pressures are improved. PHYSICAL EXAM: VITAL SIGNS: Reviewed. GENERAL: Well-developed in no acute distress. NECK: Supple. No JVD or thyromegaly LUNGS: Respirations even and unlabored. Lungs essentially clear to auscultation bilaterally. HEART: Regular rate and rhythm. S1 and S2 heard. EXTREMITIES: Normal range of motion. No clubbing or cyanosis. Dressing to LLE. ASSESSMENT: 1. Acute limb ischemia right lower extremity with SFA occlusion, status post right femoral to anterior tibial artery bypass with CryoVein 2. Chronic left lower extremity ulcer 3. Paroxysmal A. fib, one occurrence during 2019 unclear if related to alcohol use 4. Hypertension, not on medications at home 5. Cardiomyopathy ejection fraction 40-45% with mention of inferior hypokinesis, repeat echo revealing ejection fraction 45% and Lexiscan stress test negative for ischemia 6. Borderline diabetes mellitus type 2, hemoglobin A1c 6.1 7. Tobacco abuse 8. Alcohol use 9. Poor follow-up PLAN: Continue current cardiac medications We will follow on an as needed basis. Please call with questions or concerns. Post discharge follow up with Dr. Mcgrath Nurse practitioner note has been reviewed by physician. Signing provider agrees with the documented findings, assessment, and plan of care. Objective - Vital Signs Vital signs: Vital Signs Temp 97.7 F 05/19/22 07:08 Pulse 57 L 05/19/22 07:08 Resp 14 05/19/22 07:08 BP 148/72 05/19/22 07:08 Pulse Ox 94 L 05/19/22 07:08 FiO2 Intake & Output 05/18/22 05/19/22 05/19/22 18:59 06:59 18:59 Intake Total 1491 Output Total 1800 1999 Balance -309 -1999 Weight 70.76 kg Intake: IV 1151 Oral 340 Output: Urine 1700 1999 Estimated Blood Loss 100 Other: Voiding Method Urinal - Labs CBC & Chem 7: 05/17/22 05:26 05/17/22 05:26
[2022-05-19] MEDS: LACTATED RINGERS 1,000 ML IV SCH (10:20)
[2022-05-19 10:53] LABS: Basophils # (A) 0.02 X 10*3/uL (0.00-0.10); Basophils % (A) 0.2 %; Eosinophils # (A) 0.15 X 10*3/uL (0.04-0.35); Eosinophils % (A) 1.7 %; HCT 38.2 % (39.6-50.0); HGB 11.9 g/dL (13.0-17.0); Immature Grans, Automated 0.3 %; Lymphocytes # (A) 1.26 X 10*3/uL (0.90-5.00); MCH 26.8 pg (27.0-32.0); MCHC 31.2 g/dL (32.0-37.0); Mean Platelet Volume 10.5 fL (9.5-12.2); Monocytes # (A) 0.76 X 10*3/uL (0.20-1.00); Monocytes % (A) 8.5 %; NRBC Per 100 WBC 0 /100 WBCS (0.0-0.0); Neutrophils # (A) 6.76 X 10*3/uL (1.80-7.70); Neutrophils % (A) 75.3 %; Platelet Count 206 X 10*3/uL (140-440); RBC 4.44 X 10*6/uL (4.40-5.60); RDW 18.9 % (11.5-14.5); WBC 8.98 X 10*3/uL (4.50-10.00)
[2022-05-19 11:09] LABS: Albumin 3.7 g/dL (3.8-4.9); Albumin/Globulin Ratio 1.79 (1.60-3.17); Anion Gap 8.9 mmol/L (10.00-18.00); BUN/Creat Ratio 15.01 Ratio (12.00-20.00); Blood Urea Nitrogen 12.2 mg/dL (9.0-27.0); Calcium 9.1 mg/dL (8.7-10.3); Carbon Dioxide 25.5 mmol/L (20.0-27.5); Non-African American GFR(CKD) 95.8 (60.0-200.0); Potassium 4.5 mmol/L (3.5-5.5); Total Bilirubin 0.3 mg/dL (0.30-1.20); Total Protein 5.7 g/dL (6.2-8.2)
--- NOTE | 2022-05-19 12:43 | P.PN ---
Subjective Progress Note Date: 05/19/22 Patient seen and examined. No complaints, tolerating pain. It is much improved from previous. Thanks he can move his foot better. Feels his great toe better than previous Objective - Vital Signs Vital signs: Vital Signs Temp 97.7 F 05/19/22 07:08 Pulse 57 L 05/19/22 09:53 Resp 14 05/19/22 07:08 BP 148/72 05/19/22 07:08 Pulse Ox 94 L 05/19/22 07:08 FiO2 Intake & Output 05/18/22 05/19/22 05/19/22 18:59 06:59 18:59 Intake Total 1491 Output Total 1800 1999 Balance -309 -1999 Weight 70.76 kg Intake: IV 1151 Oral 340 Output: Urine 1700 1999 Estimated Blood Loss 100 Other: Voiding Method Urinal # Voids 1 - Exam No acute distress. Dressings clean and dry. Palpable pulse through the graft. Palpable pulse at the dorsalis pedis. Toes with improved coloration. Motor sensory improved. - Labs CBC & Chem 7: 05/19/22 06:59 05/19/22 06:59 Labs: Abnormal Lab Results - Last 24 Hours (Table) 05/19/22 05/19/22 Range/Units 06:59 06:59 Hgb 11.9 L (13.0-17.0) g/dL Hct 38.2 L (39.6-50.0) % MCH 26.8 L (27.0-32.0) pg MCHC 31.2 L (32.0-37.0) g/dL RDW 18.9 H (11.5-14.5) % Anion Gap 8.90 L (10.00-18.00) mmol/L Total Protein 5.7 L (6.2-8.2) g/dL Albumin 3.7 L (3.8-4.9) g/dL Assessment and Plan Assessment: Postop right femoral to anterior tibial artery bypass with CryoVein Chronic peripheral arterial disease with worsening, Se 4 peripheral arterial disease Plan: Patient is doing well overall. Increase activity, up ad miguel. Monitor urine output for retention. Hopeful for discharge easily today versus tomorrow. Discharge instructions are given. He seemingly understands and is willing to proceed. Follow-up in the office in 2 weeks. No bending knee more than 90.
--- NOTE | 2022-05-19 13:21 | P.PN ---
Subjective Progress Note Date: 05/19/22 Patient is a 62-year-old male with peripheral arterial disease, chronic ulcers, paroxysmal atrial fibrillation, hypertension, and diabetes mellitus who presented to the ED due to worsening claudicatio and pain. He was recently admitted from 05/07/22- 05/09/22 for same complaint and was discharged home to follow-up with Dr. Nuno for vein grafting and bypass. In the emergency Department patient underwent laboratory analysis was remarkable for hemoglobin 11.9, creatinine 1.26 (baseline 0.94). He underwent a right lower extremity venous Doppler which showed no evidence of DVT in the right lower extremity. He was started on a heparin per vascular surgery recommendations and was admitted for further monitoring. Vascular surgery recommneded cryovein bypass, which was completed on 05/18/22. Patient tolerated procedure well. However, he was significantly weak on 05/19/22 and was unable to stand without 2 person assist. Patient seen and examined at bedside. Pain is well controlled. No chest, SOB,. nausea, or vomiting. Vital signs reviewed General: nontoxic, no distress, appears at stated age Cardiovascular: S1S2 reg, no murmur, positive posterior DP pulse bilateral, Lungs: CTA bilateral, no rhonchi, no rales , no accessory muscle use Abdominal: soft, nontender to palpation, no guarding, no appreciable organomegaly Ext: no gross muscle atrophy, no edema, no contractures Neuro: CN II-XI grossly intact, no focal neuro deficits Psych: Alert, oriented, appropriate affect Assessment: Acute on chronic right lower extremity limb ischemia s/p CryoVein bypass of right lower extremity Chronic left lower extremity ulceration Peripheral arterial disease Paroxysmal atrial fibrillation Hypertension Prediabetes, hemoglobin A1c of 6.1% Nicotine dependence Imaging: None new Data Review: A.m. vital signs shows a temperature of 97.7, pulse 57, blood pressure 148/72, and O2 sat of 94% on room air. Laboratory analysis today remarkable for hemoglobin 11.9 (12.4 preoperative), BNP unremarkable. Plan: -Goal is for patient to be discharged today. However he was significantly weak requiring 2 person assist to get out of bed. PT and OT were subsequently consulted. -Continue pain control with [place] 5/325 and IV Dilaudid as needed for postoperative pain. -Continue to follow blood pressures closely and utilize Cozaar 100 mg daily, metoprolol 25 mg daily -Continue with aspirin 81 mg daily and atorvastatin 20 mg daily -Needs repeat hemoglobin A1c in 3 months as an outpatient -Tobacco cessation DVT prophylaxis: Mac Anticipated discharge home in a.m. if able to ambulate independently. This dictation was prepared using [employer] voice recognition software. Though every attempt is made to correct errors during during dictation some may still exist. Objective - Vital Signs Vital signs: Vital Signs Temp 97.7 F 05/19/22 07:08 Pulse 57 L 05/19/22 09:53 Resp 14 05/19/22 07:08 BP 148/72 05/19/22 07:08 Pulse Ox 94 L 05/19/22 07:08 FiO2 Intake & Output 05/18/22 05/19/22 05/19/22 18:59 06:59 18:59 Intake Total 1491 118 Output Total 1800 1999 300 Balance -309 -2000 -182 Weight 70.76 kg Intake: IV 1151 Oral 340 118 Output: Urine 1700 1999 300 Estimated Blood Loss 100 Other: Voiding Method Urinal # Voids 1 - Labs CBC & Chem 7: 05/19/22 06:59 05/19/22 06:59 Labs: Abnormal Lab Results - Last 24 Hours (Table) 05/19/22 05/19/22 Range/Units 06:59 06:59 Hgb 11.9 L (13.0-17.0) g/dL Hct 38.2 L (39.6-50.0) % MCH 26.8 L (27.0-32.0) pg MCHC 31.2 L (32.0-37.0) g/dL RDW 18.9 H (11.5-14.5) % Anion Gap 8.90 L (10.00-18.00) mmol/L Total Protein 5.7 L (6.2-8.2) g/dL Albumin 3.7 L (3.8-4.9) g/dL
[2022-05-19] MEDS: MORPHINE SULFATE 4 MG/ML SYRINGE IV PRN (16:42)
[2022-05-19] MEDS: ATORVASTATIN 20 MG TAB PO SCH (20:26)
[2022-05-20] MEDS: HYDROcodone/APAP 5-325MG 1 EACH TAB PO PRN ×2 (01:53→15:48)
[2022-05-20] MEDS: SODIUM CHLORIDE 0.9% 1,000 ML IV SCH ×2 (05:00→16:51)
[2022-05-20 07:57] VITALS: RESP 16; TEMP 98.2
[2022-05-20] MEDS: CLOPIDOGREL 75 MG TAB PO SCH (08:31)
[2022-05-20] MEDS: METOPROLOL SUCCINATE (ER) 25 MG TAB.ER.24H PO SCH (08:31)
[2022-05-20] MEDS: LOSARTAN 50 MG TAB PO SCH (08:31)
[2022-05-20] MEDS: RIVAROXABAN 2.5 MG TABLET PO SCH (08:31)
[2022-05-20] MEDS: ASPIRIN 81 MG PO SCH (08:31)
[2022-05-20] MEDS: LACTATED RINGERS 1,000 ML IV SCH (12:09)
[2022-05-20 14:07] VITALS: BP 164/73; PULSE 66
--- NOTE | 2022-05-20 15:08 | P.DS ---
Providers Date of admission: 05/13/22 17:37 Expected date of discharge: 05/20/22 Attending physician: Pepper Paredes MD Consults: 05/13/22 17:37 Consult Physician Urgent Consulting Provider: Karolina Nuno Consult Reason/Comments: Right leg pain and peripheral vascular disease Do you want consulting provider notified?: Already Contacted Primary care physician: [facility] Course: Discharge Diagnosis: Acute on chronic right lower extremity limb ischemia s/p CryoVein bypass of right lower extremity Chronic left lower extremity ulceration Peripheral arterial disease Paroxysmal atrial fibrillation Cardiomyopathy with ejection fraction 40-45% Hypertension Prediabetes, hemoglobin A1c of 6.1% Nicotine dependence Hospital Course: Patient is a 62-year-old male with peripheral arterial disease, chronic ulcers, paroxysmal atrial fibrillation, hypertension, and diabetes mellitus who p resented to the ED due to worsening claudication and pain. He was recently admitted from 05/07/22- 05/09/22 for same complaint and was discharged home to follow-up with Dr. Nuno for vein grafting and bypass. In the emergency Department patient underwent laboratory analysis was remarkable for hemoglobin 11.9, creatinine 1.26 (baseline 0.94). He underwent a right lower extremity venous Doppler which showed no evidence of DVT in the right lower extremity. He was started on a heparin per vascular surgery recommendations and was admitted for further monitoring. Vascular surgery recommended cryovein bypass, which was completed on 05/18/22. Patient tolerated procedure well. However, he was significantly weak on 05/19/22 and was unable to stand without 2 person assist. Follow-up: Dr. Nuno in one week, and Dr. Mcgrath in 2 weeks, [facility]. Medications include Xarelto 2.5 mg twice daily, Toprol 25 mg daily, Cozaar 100 mg daily, and Lipitor 20 mg daily. His [place] was refilled due to his postoperative state. Lymph node pathology pending Imaging: Lexiscan stress test: No signs of reversible ischemia Echocardiogram: Ejection fraction 45%, moderately dilated left atrium Venous Doppler right lower extremity: Negative for DVT Patient seen and examined at bedside. He feels like there is a rubber band around his right foot making it difficult to place a Nuno on the ground, he is nervous about clamped the stairs and living alone. Pain is overall well controlled. Vital signs reviewed and stable. General: nontoxic, no distress, appears at stated age Derm: warm, dry, venous stasis changes of bilateral lower extremities Head: atraumatic, normocephalic, symmetric Eyes: EOMI, no lid lag, anicteric sclera Mouth: no lip lesion, mucus membranes moist Cardiovascular: S1S2 reg, no murmur, positive dorsalis pedis pulse bilateral, Lungs: CTA bilateral, no rhonchi, no rales , no accessory muscle use Abdominal: soft, nontender to palpation, no guarding, no appreciable organomegaly Ext: no gross muscle atrophy, no edema, no contractures Neuro: CN II-XI grossly intact, no focal neuro deficits Psych: Alert, oriented, appropriate affect A total of 42 minutes of time were spent preparing this complex discharge summary. Patient was discharged on 05/20/22. This dictation was prepared using [employer] voice recognition software. Though every attempt is made to correct errors during during dictation some may still exist. Patient Condition at Discharge: Stable Plan - Discharge Summary New Discharge Prescriptions: New Atorvastatin [Lipitor] 20 mg PO HS #30 tab Losartan [Cozaar] 100 mg PO DAILY #30 tab Metoprolol Succinate (ER) [Toprol XL] 25 mg PO DAILY #30 tab Rivaroxaban [Xarelto] 2.5 mg PO BID #60 tab Continue Clopidogrel [Plavix] 75 mg PO DAILY #30 tablet Aspirin 81 mg PO DAILY tab Changed HYDROcodone/APAP 5-325MG [[place] 5-325] 1 tab PO Q4HR PRN #12 tab PRN Reason: Moderate Pain (Scale 4 To 6) Discharge Medication List Aspirin 81 mg PO DAILY tab 05/09/22 [Rx] Clopidogrel [Plavix] 75 mg PO DAILY #30 tablet 05/09/22 [Rx] Atorvastatin [Lipitor] 20 mg PO HS #30 tab 05/20/22 [Rx] HYDROcodone/APAP 5-325MG [[place] 5-325] 1 tab PO Q4HR PRN #12 tab 05/20/22 [Rx] Losartan [Cozaar] 100 mg PO DAILY #30 tab 05/20/22 [Rx] Metoprolol Succinate (ER) [Toprol XL] 25 mg PO DAILY #30 tab 05/20/22 [Rx] Rivaroxaban [Xarelto] 2.5 mg PO BID #60 tab 05/20/22 [Rx] Follow up Appointment(s)/Referral(s): Jeremy Mcgrath MD [STAFF PHYSICIAN] - 1 Week Karolina Nuno DO [STAFF PHYSICIAN] - 2 Weeks [facility] Lee dela cruz [Primary Care Provider] - 1-2 days Activity/Diet/Wound Care/Special Instructions: Activity: As tolerated No bending Right knee more than 90 Diet: Low cholesterol, consistent carb Special Instructions: Return with increased pain, fevers, drainage from surgical site. Discharge Disposition: HOME SELF-CARE
== END 2022-05-20 17:53 | disposition home or self-care (01) | DRG 181 ==
LOC: EC 14:55 → 4SSUR 17:37 → 6NMEDSUR 17:53
PROVIDERS: ADMIT Internal Medicine; ATTEND Internal Medicine
PROC: 041K0KQ Bypass Right Femoral Artery to Lower Extremity Artery with Nonautologous Tissue Substitute, Open Approach (ICD-10-PCS; principal; 2022-05-18 07:30)
DX: I70.221 Atherosclerosis of native arteries of extremities with rest pain, right leg (principal); I70.239 Atherosclerosis of native arteries of right leg with ulceration of unspecified site; F17.210 Nicotine dependence, cigarettes, uncomplicated; I48.0 Paroxysmal atrial fibrillation; I45.2 Bifascicular block; F10.21 Alcohol dependence, in remission; R73.03 Prediabetes; Z71.3 Dietary counseling and surveillance; Z60.2 Problems related to living alone; I42.9 Cardiomyopathy, unspecified; D64.9 Anemia, unspecified; F41.9 Anxiety disorder, unspecified; L97.929 Non-pressure chronic ulcer of unspecified part of left lower leg with unspecified severity; I10 Essential (primary) hypertension; Z86.14 Personal history of Methicillin resistant Staphylococcus aureus infection; Z82.49 Family history of ischemic heart disease and other diseases of the circulatory system; Z79.01 Long term (current) use of anticoagulants; Z79.02 Long term (current) use of antithrombotics/antiplatelets; Z79.82 Long term (current) use of aspirin; Z79.899 Other long term (current) drug therapy; Z83.3 Family history of diabetes mellitus; Z71.6 Tobacco abuse counseling
CPT/HCPCS: 36415; 78452; 80048; 80053; 83605; 83735; 85025; 85027; 85610; 85730; 86850; 86900; 86901; 88305; 93005; 93017; 93306; 96374; 99285

== ENCOUNTER 2022-07-21 22:01 | Emergency (ER) | payer OTHER ==
--- NOTE | 2022-07-21 23:42 | ED ---
Abdominal Pain HPI - General Stated Complaint: Hernia Time Seen by Provider: 07/21/22 22:45 Source: patient Mode of arrival: ambulatory Limitations: no limitations - History of Present Illness Initial Comments: This patient is a 62-year-old man with long-standing history of left inguinal hernia, who presents to have evaluation related to pain at the hernia. He notes that over the past few days the hernia has been protruding while he is upright and working. He has been having more pain than usual since he had done some stretching on Sunday and it seemed to aggravate it. He states that when he lies flat ease able to get the hernia to go down but it comes back when he stands. He states that it does occasionally cause pains and that he is worried because he hears it bubbling. The patient denies nausea vomiting or change in bowel movements. No problems with urination. No fever or chills. MD Complaint: abdominal pain Onset/Timin -: days(s) Location: diffuse, LLQ Radiation: none Migration to: no migration Severity: moderate Quality: cramping Consistency: constant Improves With: nothing Worsens With: nothing Associated Symptoms: denies other symptoms - Related Data Previous Rx's Medication Instructions Recorded Aspirin 81 mg PO DAILY tab 05/09/22 Clopidogrel [Plavix] 75 mg PO DAILY #30 tablet 05/09/22 Atorvastatin [Lipitor] 20 mg PO HS #30 tab 05/20/22 HYDROcodone/APAP 5-325MG [[place] 1 tab PO Q4HR PRN #12 tab 05/20/22 5-325] Losartan [Cozaar] 100 mg PO DAILY #30 tab 05/20/22 Metoprolol Succinate (ER) [Toprol 25 mg PO DAILY #30 tab 05/20/22 XL] Rivaroxaban [Xarelto] 2.5 mg PO BID #60 tab 05/20/22 Allergies Allergy/AdvReac Type Severity Reaction Status Date / Time No Known Allergies Allergy Verified 07/21/22 22:08 Review of Systems ROS Statement: Those systems with pertinent positive or pertinent negative responses have been documented in the HPI. ROS Other: All systems not noted in ROS Statement are negative. Constitutional: Denies: fever, chills Respiratory: Denies: cough, dyspnea Cardiovascular: Denies: chest pain, palpitations, edema Gastrointestinal: Reports: abdominal pain, nausea. Denies: vomiting, diarrhea, constipation, melena, hematochezia Genitourinary: Denies: dysuria, hematuria, testicular pain, testicular mass Musculoskeletal: Denies: back pain Skin: Denies: rash Neurological: Denies: headache, weakness Past Medical History Past Medical History: Atrial Fibrillation, Deep Vein Thrombosis (DVT) Additional Past Medical History / Comment(s): alcoholism and smoker, blood clots History of Any Multi-Drug Resistant Organisms: MRSA Date of last positivie culture/infection: 07/05/21 MDRO Source:: Left Ankle Past Surgical History: Heart Catheterization, Tonsillectomy Additional Past Surgical History / Comment(s): stent to rt leg Past Anesthesia/Blood Transfusion Reactions: No Reported Reaction Past Psychological History: Anxiety Smoking Status: Current every day smoker Past Alcohol Use History: None Reported Past Drug Use History: None Reported - Past Family History Mother Family Medical History: Diabetes Mellitus, Hypertension Additional Family Medical History / Comment(s): Family history of varicose veins. Father Family Medical History: CVA/TIA, Myocardial Infarction ([place]) General Exam Limitations: no limitations General appearance: alert, in no apparent distress Head exam: Present: atraumatic, normocephalic Eye exam: Present: normal appearance. Absent: scleral icterus, conjunctival injection ENT exam: Present: normal oropharynx Respiratory exam: Present: normal lung sounds bilaterally. Absent: respiratory distress, wheezes, rales, rhonchi, stridor Cardiovascular Exam: Present: regular rate, normal rhythm, normal heart sounds. Absent: systolic murmur, diastolic murmur, rubs, gallop GI/Abdominal exam: Present: soft, tenderness, normal bowel sounds, hernia. Absent: distended, guarding, rebound, rigid, mass, pulsatile mass Extremities exam: Present: normal inspection, normal capillary refill. Absent: pedal edema, calf tenderness Back exam: Present: normal inspection. Absent: CVA tenderness (R), CVA tenderness (L) Neurological exam: Present: alert Skin exam: Present: warm, dry, intact, normal color. Absent: rash Course Vital Signs 07/21/22 07/21/22 07/22/22 22:07 22:08 00:06 Temperature 98.1 F 98.6 F Pulse Rate 76 67 Respiratory 20 18 18 Rate Blood Pressure 170/71 158/87 O2 Sat by Pulse 98 98 Oximetry Medical Decision Making - Medical Decision Making 's patient is a 62-year-old man with inguinal hernia. I was able to reduce the hernia at the bedside. On reevaluation, the patient's symptoms have resolved. Given the patient's activity level suspect that at some point in the near future this should have surgical repair, so the patient is given follow-up information for the surgeon. Also discussed return parameters along with the appropriate follow-up. Patient feeling well and discharged Was pt. sent in by a medical professional or institution (, PA, HOUSE WIRER HELPER, urgent care, hospital, or prison...) When possible be specific @ -[No] Did you speak to anyone other than the patient for history (EMS, parent, family, police, friend...)? What history was obtained from this source @ -[No] Did you review nursing and triage notes (agree or disagree)? Why? @ -[I reviewed and agree with nursing and triage notes] Were old charts reviewed (outside hosp., previous admission, EMS record, old EKG, old radiological studies, urgent care reports/EKG's, prison records)? Report findings @ -[No old charts were reviewed] Differential Diagnosis (chest pain, altered mental status, abdominal pain women, abdominal pain men, vaginal bleeding, weakness, fever, dyspnea, syncope, headache, dizziness, GI bleed, back pain, seizure, CVA, palpatations, mental health, musculoskeletal)? @ -[Differential Abdominal Pain Men: Appendicitis, cholecystitis, diverticulosis, ischemic bowel, pancreatitis, hepatitis, UTI, gastroenteritis, AAA, incarcerated hernia, bowel obstruction, constipation, inflammatory bowel, hepatitis, peptic ulcer disease, splenic infarction, perforated viscus, testicular torsion, this is not meant to be an all-inclusive list EKG interpreted by me (3pts min.). @ -[ X-rays interpreted by me (1pt min.). @ -[None done] CT interpreted by me (1pt min.). @ -[None done] U/S interpreted by me (1pt. min.). @ -[None done] What testing was considered but not performed or refused? (CT, X-rays, U/S, labs)? Why? @ -[None] What meds were considered but not given or refused? Why? @ -[None] Did you discuss the management of the patient with other professionals (professionals i.e. , PA, HOUSE WIRER HELPER, lab, RT, psych nurse, social insurance administrator, relocation coordinator, teacher, drug abuse resistance education officer, case making machine operator)? Give summary @ -[No] Was smoking cessation discussed for >3mins.? @ -[No] Was critical care preformed (if so, how long)? @ -[No] Were there social determinants of health that impacted care today? How? (Homelessness, low income, unemployed, alcoholism, drug addiction, transportation, low edu. Level, literacy, decrease access to med. care, halfway, rehab)? @ -[No] Was there de-escalation of care discussed even if they declined (Discuss DNR or withdrawal of care, Hospice)? DNR status @ -[No] What co-morbidities impacted this encounter? (DM, HTN, Smoking, COPD, CAD, Cancer, CVA, ARF, Chemo, Hep., AIDS, mental health diagnosis, sleep apnea, morbid obesity)? @ -[None] Was patient admitted / discharged? Hospital course, mention meds given and route, prescriptions, significant lab abnormalities, going to OR and other pertinent info. @ -[Patient is discharged with follow-up information for surgical clinic and strict return parameters Undiagnosed new problem with uncertain prognosis? @ -[No] Drug Therapy requiring intensive monitoring for toxicity (Heparin, Nitro, Insulin, Cardizem)? @ -[No] Were any procedures done? @ -[No] Diagnosis/symptom? @ -[Inguinal hernia Acute, or Chronic, or Acute on Chronic? @ -[Acute on chronic Uncomplicated (without systemic symptoms) or Complicated (systemic symptoms)? @ -[Uncomplicated Side effects of treatment? @ -[No] Exacerbation, Progression, or Severe Exacerbation? @ -[No] Poses a threat to life or bodily function? How? (Chest pain, [place], [place], pneumonia, PE, COPD, DKA, ARF, appy, cholecystitis, CVA, Diverticulitis, Homicidal, Suicidal, threat to staff... and all critical care pts) @ -[No] Disposition Clinical Impression: Hernia Disposition: HOME SELF-CARE Condition: Good Instructions (If sedation given, give patient instructions): Inguinal Hernia (ED) Is patient prescribed a controlled substance at d/c from ED?: No Referrals: [facility] [Primary Care Provider] - 1-2 days Delicia Vann DO [Doctor of Osteopathic Medicine] - 1-2 days
[2022-07-21 23:55] VITALS: BP 158/87; PULSE 67; RESP 18; TEMP 98.6
== END 2022-07-22 00:16 | disposition home or self-care (01) ==
LOC: EC 22:01
DX: K46.9 Unspecified abdominal hernia without obstruction or gangrene (principal); F17.200 Nicotine dependence, unspecified, uncomplicated; I48.91 Unspecified atrial fibrillation; Z86.59 Personal history of other mental and behavioral disorders
CPT/HCPCS: 99283

== ENCOUNTER 2022-09-09 14:40 | Observation (INO) | payer OTHER ==
--- NOTE | 2022-09-09 14:48 | ED ---
General Adult HPI - General Chief complaint: Extremity Injury, Lower Stated complaint: Left leg injury Time Seen by Provider: 09/09/22 14:42 Source: EMS Mode of arrival: EMS Limitations: no limitations - History of Present Illness Initial comments: Dictation was produced using [employer] dictation software. please excuse any grammatical, word or spelling errors. Chief Complaint: 62-year-old male with history of varicose veins and antico agulation use presents with left lower extremity bleeding History of Present Illness: Patient 62-year-old male has history of varicose veins. Patient noticed bleeding coming from his left leg. EMS was called reports that patient lost approximately 1 L of blood. States that his bleeding was arterial. They put on a clotting powder on the leg and placed a tourniquet that was placed at 2:10 PM. Patient denies any trauma to the leg. Patient takes Xarelto The ROS documented in this emergency department record has been reviewed and confirmed by me. Those systems with pertinent positive or negative responses have been documented in the HPI. All other systems are other negative and/or noncontributory. - Related Data Previous Rx's Medication Instructions Recorded Aspirin 81 mg PO DAILY tab 05/09/22 Clopidogrel [Plavix] 75 mg PO DAILY #30 tablet 05/09/22 Atorvastatin [Lipitor] 20 mg PO HS #30 tab 05/20/22 HYDROcodone/APAP 5-325MG [[place] 1 tab PO Q4HR PRN #12 tab 05/20/22 5-325] Losartan [Cozaar] 100 mg PO DAILY #30 tab 05/20/22 Metoprolol Succinate (ER) [Toprol 25 mg PO DAILY #30 tab 05/20/22 XL] Rivaroxaban [Xarelto] 2.5 mg PO BID #60 tab 05/20/22 Allergies Allergy/AdvReac Type Severity Reaction Status Date / Time No Known Allergies Allergy Verified 09/09/22 14:47 Review of Systems ROS Statement: Those systems with pertinent positive or pertinent negative responses have been documented in the HPI. ROS Other: All systems not noted in ROS Statement are negative. Past Medical History Past Medical History: Atrial Fibrillation, Deep Vein Thrombosis (DVT) Additional Past Medical History / Comment(s): alcoholism and smoker, blood clots History of Any Multi-Drug Resistant Organisms: MRSA Date of last positivie culture/infection: 07/05/21 MDRO Source:: Left Ankle Past Surgical History: Heart Catheterization, Tonsillectomy Additional Past Surgical History / Comment(s): stent to rt leg, Vein graft R leg Past Anesthesia/Blood Transfusion Reactions: No Reported Reaction Past Psychological History: Anxiety Smoking Status: Current every day smoker Past Alcohol Use History: None Reported Past Drug Use History: None Reported - Past Family History Mother Family Medical History: Diabetes Mellitus, Hypertension Additional Family Medical History / Comment(s): Family history of varicose veins. Father Family Medical History: CVA/TIA, Myocardial Infarction ([place]) General Exam - General Exam Comments Initial Comments: PHYSICAL EXAM: General Impression: Alert and oriented x3, not in acute distress HEENT: Normocephalic atraumatic, extra-ocular movements intact, pupils equal and reactive to light bilaterally, mucous membranes moist. Cardiovascular: Heart regular rate and rhythm Chest: Able to complete full sentences, no retractions, no tachypnea Musculoskeletal: Pulses present and equal in all extremities, no peripheral edema Motor: no focal deficits noted Neurological: CN II-XII grossly intact, no focal motor or sensory deficits noted Skin: Intact with no visualized rashes Psych: Normal affect and mood Left leg: Intact dorsalis pedis pulse. He does have this dry residue along the whole inner aspect of his left ankle no active bleeding. Tourniquet was removed Limitations: no limitations Course Vital Signs 09/09/22 09/09/22 14:42 17:13 Temperature 98.4 F Pulse Rate 68 62 Respiratory 18 18 Rate Blood Pressure 115/68 138/85 O2 Sat by Pulse 99 99 Oximetry Medical Decision Making - Medical Decision Making Was pt. sent in by a medical professional or institution (, PA, SENIOR MECHANICAL TECHNICIAN, urgent care, hospital, or fci...) When possible be specific @ -No Did you speak to anyone other than the patient for history (EMS, parent, family, police, friend...)? What history was obtained from this source @ -No Did you review nursing and triage notes (agree or disagree)? Why? @ -I reviewed and agree with nursing and triage notes Were old charts reviewed (outside hosp., previous admission, EMS record, old EKG, old radiological studies, urgent care reports/EKG's, fci records)? Report findings @ -No old charts were reviewed Differential Diagnosis (chest pain, altered mental status, abdominal pain women, abdominal pain men, vaginal bleeding, musculoskeletal, weakness, fever, dyspnea, syncope, headache, dizziness, GI bleed, back pain, seizure, CVA, palpatations, mental health)? @ -not applicable EKG interpreted by me (3pts min.). @ -None done X-rays interpreted by me (1pt min.). @ -None done CT interpreted by me (1pt min.). @ -None done U/S interpreted by me (1pt. min.). @ -None done What testing was considered but not performed or refused? (CT, X-rays, U/S, labs)? Why? @ -None What meds were considered but not given or refused? Why? @ -None Did you discuss the management of the patient with other professionals (professionals i.e. , PA, SENIOR MECHANICAL TECHNICIAN, lab, RT, psych nurse, social media editor, utilization management um nurse, teacher, credit compliance officer, pillowcase cutter)? Give summary @ -No Was smoking cessation discussed for >3mins.? @ -No Was critical care preformed (if so, how long)? @ -No Were there social determinants of health that impacted care today? How? (Homelessness, low income, unemployed, alcoholism, drug addiction, transportation, low edu. Level, literacy, decrease access to med. care, correction, rehab)? @ -No Was there de-escalation of care discussed even if they declined (Discuss DNR or withdrawal of care, Hospice)? DNR status @ -No What co-morbidities impacted this encounter? (DM, HTN, Smoking, COPD, CAD, Cancer, CVA, ARF, Chemo, Hep., AIDS, mental health diagnosis, sleep apnea, morbid obesity)? @ -None Was patient admitted / discharged? Hospital course, mention meds given and route, prescriptions, significant lab abnormalities, going to OR and other perti nent info. @ -62 Year-old male with acute bleeding from left ulcer versus varicose vein. Vital signs stable. Laboratory evaluation shows stable hemoglobin 11.5. Rest of labs unremarkable. Patient monitored in the emergency department for several hours with no recurrence of bleeding. Basilar surgery was consulted. As a surgery placed a dressing request the patient be admitted for monitoring and one abode application tomorrow. Undiagnosed new problem with uncertain prognosis? @ -No Drug Therapy requiring intensive monitoring for toxicity (Heparin, Nitro, Insulin, Cardizem)? @ -No Were any procedures done? @ -No Diagnosis/symptom? Acute, or Chronic, or Acute on Chronic? Uncomplicated (without systemic symptoms) or Complicated (systemic symptoms)? @ -1. Left ankle bleed Side effects of treatment? @ -No Exacerbation, Progression, or Severe Exacerbation? @ -No Poses a threat to life or bodily function? How? (Chest pain, [place], [place], pneumonia, PE, COPD, DKA, ARF, appy, cholecystitis, CVA, Diverticulitis, Homicidal, Suic idal, threat to staff... and all critical care pts) @ -No - Lab Data Result diagrams: 09/09/22 14:42 09/09/22 14:42 Lab Results 09/09/22 09/09/22 09/09/22 Range/Units 14:42 14:42 14:42 WBC 5.1 (3.8-10.6) k/uL RBC 3.72 L (4.30-5.90) m/uL Hgb 11.5 L (13.0-17.5) gm/dL Hct 34.9 L (39.0-53.0) % MCV 93.9 (80.0-100.0) fL MCH 30.8 (25.0-35.0) pg MCHC 32.8 (31.0-37.0) g/dL RDW 14.9 (11.5-15.5) % Plt Count 181 (150-450) k/uL MPV 8.3 Neutrophils % 62 % Lymphocytes % 27 % Monocytes % 5 % Eosinophils % 4 % Basophils % 0 % Neutrophils # 3.2 (1.3-7.7) k/uL Lymphocytes # 1.4 (1.0-4.8) k/uL Monocytes # 0.3 (0-1.0) k/uL Eosinophils # 0.2 (0-0.7) k/uL Basophils # 0.0 (0-0.2) k/uL Hypochromasia Slight PT 10.1 (9.0-12.0) sec INR 0.9 (<1.2) APTT 22.0 (22.0-30.0) sec Sodium 137 (137-145) mmol/L Potassium 4.4 (3.5-5.1) mmol/L Chloride 107 (98-107) mmol/L Carbon Dioxide 22 (22-30) mmol/L Anion Gap 8 mmol/L BUN 20 (9-20) mg/dL Creatinine 1.11 (0.66-1.25) mg/dL Est GFR (CKD-EPI)AfAm 83 (>60 ml/min/1.73 sqM) Est GFR (CKD-EPI)NonAf 72 (>60 ml/min/1.73 sqM) Glucose 147 H (74-99) mg/dL Calcium 8.3 L (8.4-10.2) mg/dL Blood Type Blood Type Recheck Bld Type Recheck Status Antibody Screen Spec Expiration Date 09/09/22 Range/Units 14:47 WBC (3.8-10.6) k/uL RBC (4.30-5.90) m/uL Hgb (13.0-17.5) gm/dL Hct (39.0-53.0) % MCV (80.0-100.0) fL MCH (25.0-35.0) pg MCHC (31.0-37.0) g/dL RDW (11.5-15.5) % Plt Count (150-450) k/uL MPV Neutrophils % % Lymphocytes % % Monocytes % % Eosinophils % % Basophils % % Neutrophils # (1.3-7.7) k/uL Lymphocytes # (1.0-4.8) k/uL Monocytes # (0-1.0) k/uL Eosinophils # (0-0.7) k/uL Basophils # (0-0.2) k/uL Hypochromasia PT (9.0-12.0) sec INR (<1.2) APTT (22.0-30.0) sec Sodium (137-145) mmol/L Potassium (3.5-5.1) mmol/L Chloride (98-107) mmol/L Carbon Dioxide (22-30) mmol/L Anion Gap mmol/L BUN (9-20) mg/dL Creatinine (0.66-1.25) mg/dL Est GFR (CKD-EPI)AfAm (>60 ml/min/1.73 sqM) Est GFR (CKD-EPI)NonAf (>60 ml/min/1.73 sqM) Glucose (74-99) mg/dL Calcium (8.4-10.2) mg/dL Blood Type A Positive Blood Type Recheck A Pos Bld Type Recheck Status No Antibody Screen NEGATIVE Spec Expiration Date 09/12/20222346 Disposition Clinical Impression: Bleeding from varicose vein Disposition: ADMITTED IP TO THIS HOSP Condition: Fair Referrals: [facility] [Primary Care Provider] - 1-2 days Decision Time: 17:24
[2022-09-09 15:04] LABS: Basophils % (A) 0 %; Eosinophils # (A) 0.2 k/uL (0-0.7); Eosinophils % (A) 4 %; HCT 34.9 % (39.0-53.0); HGB 11.5 gm/dL (13.0-17.5); Hypochromasia Slight; Lymphocytes # (A) 1.4 k/uL (1.0-4.8); Lymphocytes % (A) 27 %; MCH 30.8 pg (25.0-35.0); MCHC 32.8 g/dL (31.0-37.0); MCV 93.9 fL (80.0-100.0); Mean Platelet Volume 8.3; Monocytes # (A) 0.3 k/uL (0-1.0); Monocytes % (A) 5 %; Neutrophils # (A) 3.2 k/uL (1.3-7.7); Neutrophils % (A) 62 %; Platelet Count 181 k/uL (150-450); RBC 3.72 m/uL (4.30-5.90); RDW 14.9 % (11.5-15.5); WBC 5.1 k/uL (3.8-10.6)
[2022-09-09 15:14] LABS: African American GFR (CKD) 83 (>60 ml/min/1.73 sqM); Anion Gap 8 mmol/L; Blood Urea Nitrogen 20 mg/dL (9-20); Calcium 8.3 mg/dL (8.4-10.2); Carbon Dioxide 22 mmol/L (22-30); Chloride 107 mmol/L (98-107); Glucose 147 mg/dL (74-99); Non-African American GFR(CKD) 72 (>60 ml/min/1.73 sqM); Potassium 4.4 mmol/L (3.5-5.1); Sodium 137 mmol/L (137-145)
[2022-09-09 15:19] LABS: INR 0.9 (<1.2); Prothrombin Time 10.1 sec (9.0-12.0)
[2022-09-09] MEDS ORDERED: NALOXONE 0.4 MG/ML 1 ML VIAL IV PRN (17:04)
[2022-09-09] MEDS ORDERED: SODIUM CHLORIDE 0.9% 1,000 ML IV SCH (17:15)
--- NOTE | 2022-09-09 17:45 | P.GSCN ---
History of Present Illness History of present illness: 62-year-old gentleman known to me from the past. Patient had history of for bleeding venous ulcer at the left angle in about a year ago patient had a venous ultrasound which showed reflux in the great saphenous vein patient had a endovenous laser ablation of the great saphenous vein. He is been followed in the office but no evidence of bleeding R today patient had a bleed and was called EMS and clotting powder was placed bleeding stopped. Patient also had a right leg fem-tib bypass by Dr. Doss this year for ischemic right leg. Patient also has a history of atrial fibrillation On examination patient seen in the emergency room laying comfortably neck is supple Chest is clear good and both lungs first and second sound present Abdomen soft nontender Patient has a venous ulcer ulcer at the left ankle no active bleeding was noted at this time femoral pulses 1+ right femoral 1+ Patient to has been admitted we will follow with you we applied pressure dressing on the left ankle and at this point no active bleeding was noted we will follow closely Past Medical History Past Medical History: Atrial Fibrillation, Deep Vein Thrombosis (DVT) Additional Past Medical History / Comment(s): alcoholism and smoker, blood clots History of Any Multi-Drug Resistant Organisms: MRSA Year Discovered:: 07/05/21 MDRO Source:: Left Ankle Past Surgical History: Heart Catheterization, Tonsillectomy Additional Past Surgical History / Comment(s): stent to rt leg, Vein graft R leg Past Anesthesia/Blood Transfusion Reactions: No Reported Reaction Past Psychological History: Anxiety Smoking Status: Current every day smoker Past Alcohol Use History: None Reported Past Drug Use History: None Reported - Past Family History Mother Family Medical History: Diabetes Mellitus, Hypertension Additional Family Medical History / Comment(s): Family history of varicose veins. Father Family Medical History: CVA/TIA, Myocardial Infarction ([place]) Medications and Allergies Home Medications Medication Instructions Recorded Confirmed Type Atorvastatin [Lipitor] 20 mg PO HS #30 tab 05/20/22 09/09/22 Rx Rivaroxaban [Xarelto] 2.5 mg PO BID #60 tab 05/20/22 09/09/22 Rx Aspirin EC [Ecotrin] 325 mg PO DAILY 09/09/22 09/09/22 History Cholecalciferol [Vitamin D3 (125 125 mcg PO DAILY 09/09/22 09/09/22 History Mcg = 5000 Iu)] Gabapentin [Neurontin] 100 mg PO TID 09/09/22 09/09/22 History Ibuprofen [Motrin] 600 mg PO Q6HR PRN 09/09/22 09/09/22 History Losartan [Cozaar] 50 mg PO DAILY 09/09/22 09/09/22 History Metoprolol Tartrate [Lopressor] 25 mg PO DAILY 09/09/22 09/09/22 History Tamsulosin [Flomax] 0.8 mg PO DAILY 09/09/22 09/09/22 History busPIRone HCl [Buspar] 5 mg PO BID 09/09/22 09/09/22 History metFORMIN HCL [Glucophage] 500 mg PO BID 09/09/22 09/09/22 History traZODone HCL [Desyrel] 25 mg PO HS 09/09/22 09/09/22 History Allergies Allergy/AdvReac Type Severity Reaction Status Date / Time No Known Allergies Allergy Verified 09/09/22 17:25 Surgical - Exam Vital Signs Temp Pulse Resp BP Pulse Ox 98.4 F 68 18 115/68 99 09/09/22 14:42 09/09/22 14:42 09/09/22 14:42 09/09/22 14:42 09/09/22 14:42 Results - Labs 09/09/22 14:42 09/09/22 14:42 Abnormal Lab Results - Last 24 Hours (Table) 09/09/22 09/09/22 Range/Units 14:42 14:42 RBC 3.72 L (4.30-5.90) m/uL Hgb 11.5 L (13.0-17.5) gm/dL Hct 34.9 L (39.0-53.0) % Glucose 147 H (74-99) mg/dL Calcium 8.3 L (8.4-10.2) mg/dL Diabetes panel 09/09/22 Range/Units 14:42 Sodium 137 (137-145) mmol/L Potassium 4.4 (3.5-5.1) mmol/L Chloride 107 (98-107) mmol/L Carbon Dioxide 22 (22-30) mmol/L BUN 20 (9-20) mg/dL Creatinine 1.11 (0.66-1.25) mg/dL Glucose 147 H (74-99) mg/dL Calcium 8.3 L (8.4-10.2) mg/dL Calcium panel 09/09/22 Range/Units 14:42 Calcium 8.3 L (8.4-10.2) mg/dL Pituitary panel 09/09/22 Range/Units 14:42 Sodium 137 (137-145) mmol/L Potassium 4.4 (3.5-5.1) mmol/L Chloride 107 (98-107) mmol/L Carbon Dioxide 22 (22-30) mmol/L BUN 20 (9-20) mg/dL Creatinine 1.11 (0.66-1.25) mg/dL Glucose 147 H (74-99) mg/dL Calcium 8.3 L (8.4-10.2) mg/dL Adrenal panel 09/09/22 Range/Units 14:42 Sodium 137 (137-145) mmol/L Potassium 4.4 (3.5-5.1) mmol/L Chloride 107 (98-107) mmol/L Carbon Dioxide 22 (22-30) mmol/L BUN 20 (9-20) mg/dL Creatinine 1.11 (0.66-1.25) mg/dL Glucose 147 H (74-99) mg/dL Calcium 8.3 L (8.4-10.2) mg/dL
[2022-09-09] MEDS ORDERED: ONDANSETRON 4 MG/2 ML VIAL IVP PRN (17:53)
[2022-09-09] MEDS ORDERED: ACETAMINOPHEN TAB 325 MG TAB PO PRN (17:53)
[2022-09-09] MEDS ORDERED: HYDROcodone/APAP 5-325MG 1 EACH TAB PO PRN (17:53)
[2022-09-09] MEDS ORDERED: bisacodyL 5 MG TABLET.DR PO PRN (17:53)
[2022-09-09] MEDS ORDERED: MELATONIN 3 MG TABLET PO PRN (17:53)
[2022-09-09] MEDS ORDERED: NICOTINE GUM (POLACRILEX) 2 MG GUM BUCCAL PRN (17:53)
--- NOTE | 2022-09-09 18:19 | P.HPIM ---
History of Present Illness H&P Date: 09/09/22 Patient is a 62-year-old male with history of atrial fibrillation, severe peripheral arterial disease status post post bypass to left, DVT, and tobacco dependency who presented to the ER with complaints of bleeding from a chronic left leg ulcer. He had called EMS who could not control bleeding without applying a tourniquet and using clotting powder. Tourniquet was on for 20 min utes and then was taken off. On arrival to the ER his vital signs within normal limits. Hemoglobin 11.5 remainder of blood work rather unremarkable. Vascular surgery was consulted and saw the patient in the emergency department and placed a dressing. They requested the patient be monitored overnight for possible recurrent bleeding. Patient seen and examined at bedside. He reports that he was at work today and on his blood around his shoe. He then removed tissue in his sock and had significant bleeding coming from his ankle. His coworker called EMS. He began to feel lightheaded as though he would pass out, this was associated with rapid breathing and diaphoresis. He denies any true shortness of breath or chest pain associated with it. This has now recovered. He reports he has had bleeding approximately 7 times from this ulceration. He has required stitches and treatment by Dr. Sams in the past. Has also had been decreasing in size and doing well since earlier this year up until today. Vital signs reviewed General: nontoxic, no distress, appears at stated age Derm: warm, dry, Dressing in place over left ankle Eyes: EOMI, no lid lag, anicteric sclera, pupils equal round reactive to light ENT: Nose and ears atraumatic, no thrush, no pharyngeal erythema, poor dent ition Cardiovascular: S1S2 reg, no murmur, no edema Lungs: clear to auscultation bilateral, no rhonchi, no rales, no wheeze, no accessory muscle use Abdominal: soft, nontender to palpation, no guarding, no appreciable organomegaly, normal bowel sounds Ext: no gross muscle atrophy, no contractures Neuro: CN II-XII grossly intact, no focal neuro deficits Psych: Alert, oriented, appropriate affect Assessment/ Plan: Bleeding from chronic left lower extremity venous stasis ulcer Peripheral arterial disease Acute blood loss anemia - Check CBC in 1 hour and again in AM - Dr. Muñoz will recheck in AM - hold xarelto and Aspirin tonight Paroxysmal atrial fibrillation Cardiomyopathy with ejection fraction 40-45% Hypertension - hold xarelto - lopressor 25 mg daily - liptior 20 mg daily Diabetes - resume metformin - Follow BS - last A1C 6.1 Nicotine dependency - cessation - nicotine replacement Data Review: As per HPI The patient is admitted with an anticipated less than 2 midnight stay for evaluation of bleeding left ankle ulcer. DVT prophylaxis: early ambulation Anticipated discharge date: in 24-[address]: home This dictation was prepared using [place] voice recognition software. Though every attempt is made to correct errors during dictation some may still exist. Past Medical History Past Medical History: Atrial Fibrillation, Diabetes Mellitus, Deep Vein Thrombosis (DVT), Hyperlipidemia, Hypertension Additional Past Medical History / Comment(s): blood clots, cardiomyopathy, PAD History of Any Multi-Drug Resistant Organisms: MRSA Date of last positivie culture/infection: 07/05/21 MDRO Source:: Left Ankle Past Surgical History: Heart Catheterization, Tonsillectomy Additional Past Surgical History / Comment(s): stent to rt leg, Vein graft R leg Past Anesthesia/Blood Transfusion Reactions: No Reported Reaction Past Psychological History: Anxiety Smoking Status: Current every day smoker Past Alcohol Use History: None Reported Past Drug Use History: None Reported - Past Family History Mother Family Medical History: Diabetes Mellitus, Hypertension Additional Family Medical History / Comment(s): Family history of varicose veins. Father Family Medical History: CVA/TIA, Myocardial Infarction (NC) Medications and Allergies Home Medications Medication Instructions Recorded Confirmed Type Atorvastatin [Lipitor] 20 mg PO HS #30 tab 05/20/22 09/09/22 Rx Rivaroxaban [Xarelto] 2.5 mg PO BID #60 tab 05/20/22 09/09/22 Rx Aspirin EC [Ecotrin] 325 mg PO DAILY 09/09/22 09/09/22 History Cholecalciferol [Vitamin D3 (125 125 mcg PO DAILY 09/09/22 09/09/22 History Mcg = 5000 Iu)] Gabapentin [Neurontin] 100 mg PO TID 09/09/22 09/09/22 History Ibuprofen [Motrin] 600 mg PO Q6HR PRN 09/09/22 09/09/22 History Losartan [Cozaar] 50 mg PO DAILY 09/09/22 09/09/22 History Metoprolol Tartrate [Lopressor] 25 mg PO DAILY 09/09/22 09/09/22 History Tamsulosin [Flomax] 0.8 mg PO DAILY 09/09/22 09/09/22 History busPIRone HCl [Buspar] 5 mg PO BID 09/09/22 09/09/22 History metFORMIN HCL [Glucophage] 500 mg PO BID 09/09/22 09/09/22 History traZODone HCL [Desyrel] 25 mg PO HS 09/09/22 09/09/22 History Allergies Allergy/AdvReac Type Severity Reaction Status Date / Time No Known Allergies Allergy Verified 09/09/22 17:25 Physical Exam Osteopathic Statement: *. No significant issues noted on an osteopathic structural exam other than those noted in the History and Physical/Consult. Vitals: Vital Signs Temp Pulse Resp BP Pulse Ox 09/09/22 17:13 62 18 138/85 99 09/09/22 14:42 98.4 F 68 18 115/68 99 Intake and Output 09/09/22 09/09/22 09/09/22 06:59 14:59 22:59 Other: Weight 69.4 kg Results CBC & Chem 7: 09/09/22 14:42 09/09/22 14:42 Labs: Abnormal Lab Results - Last 24 Hours (Table) 09/09/22 09/09/22 Range/Units 14:42 14:42 RBC 3.72 L (4.30-5.90) m/uL Hgb 11.5 L (13.0-17.5) gm/dL Hct 34.9 L (39.0-53.0) % Glucose 147 H (74-99) mg/dL Calcium 8.3 L (8.4-10.2) mg/dL
[2022-09-09 18:31] LABS: HCT 33.5 % (39.0-53.0); Hypochromasia Slight; MCV 93.9 fL (80.0-100.0); Mean Platelet Volume 8.6; Platelet Count 173 k/uL (150-450); RBC 3.57 m/uL (4.30-5.90); WBC 7.3 k/uL (3.8-10.6)
[2022-09-09] MEDS ORDERED: ATORVASTATIN 20 MG TAB PO SCH (21:00)
[2022-09-09] MEDS ORDERED: traZODone HCL 50 MG TAB PO SCH (21:00)
[2022-09-09] MEDS: metFORMIN 500 MG TAB PO SCH (21:49)
[2022-09-09] MEDS: GABAPENTIN 100 MG CAP PO SCH (21:49)
[2022-09-09] MEDS: busPIRone HCl 5 MG TAB PO SCH (21:49)
[2022-09-09] MEDS: MORPHINE SULFATE 4 MG/ML SYRINGE IVP PRN (21:50)
[2022-09-10 02:13] VITALS: RESP 18
--- NOTE | 2022-09-10 07:27 | P.PN ---
Progress Note - Text patient came to the emergency room yesterday with history of bleeding venous ulcer left ankle Patricia had a endovenous laser ablation of the left great saphenous vein about a year ago patient has some thoracostomy involving the calf area and there is this superficial ulcer to the medial aspect of the ankle. 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
[2022-09-10 07:38] VITALS: BP 158/89; PULSE 56; TEMP 98.6
[2022-09-10 08:26] LABS: HCT 34.9 % (39.0-53.0); HGB 11.2 gm/dL (13.0-17.5); Hypochromasia Slight; MCH 30.2 pg (25.0-35.0); MCHC 32.2 g/dL (31.0-37.0); MCV 93.8 fL (80.0-100.0); Mean Platelet Volume 8.6; Platelet Count 161 k/uL (150-450); RBC 3.72 m/uL (4.30-5.90); RDW 14.9 % (11.5-15.5); WBC 5.9 k/uL (3.8-10.6)
[2022-09-10] MEDS: MORPHINE SULFATE 4 MG/ML SYRINGE IVP PRN (08:56)
[2022-09-10] MEDS: GABAPENTIN 100 MG CAP PO SCH (08:58)
[2022-09-10] MEDS: metFORMIN 500 MG TAB PO SCH (08:58)
[2022-09-10] MEDS: busPIRone HCl 5 MG TAB PO SCH (08:58)
[2022-09-10] MEDS ORDERED: CHOLECALCIFEROL 125 MCG (5000 IU) TABLET PO SCH (09:00)
[2022-09-10] MEDS ORDERED: METOPROLOL TARTRATE 25 MG TAB PO SCH (09:00)
[2022-09-10] MEDS ORDERED: TAMSULOSIN 0.4 MG CAP.ER.24H PO SCH (09:00)
[2022-09-10] MEDS ORDERED: LOSARTAN 50 MG TAB PO SCH (09:00)
[2022-09-10] MEDS ORDERED: NICOTINE 21MG/24HR PATCH TRANSDERM SCH (09:00)
--- NOTE | 2022-09-10 10:13 | P.DS ---
Providers Date of admission: 09/09/22 17:04 Expected date of discharge: 09/10/22 Attending physician: Dora Sheehan DO Consults: 09/09/22 16:42 Consult Physician Routine Consulting Provider: Isael Sams Consult Reason/Comments: bleeding varicose vein Do you want consulting provider notified?: Already Contacted Primary care physician: [facility] Hospital Course: Discharge Diagnosis: Bleeding from chronic left lower extremity venous stasis ulcer Peripheral arterial disease Acute blood loss anemia Paroxysmal atrial fibrillation Cardiomyopathy with ejection fraction 40-45% Hypertension Diabetes Nicotine dependency Hospital Course: Patient is a 62-year-old male with history of atrial fibrillation, severe peripheral arterial disease status post cryovein bypass to right LE, DVT, and tobacco dependency who presented to the ER with complaints of bleeding from a chronic left leg ulcer. He had called EMS who could not control bleeding without applying a tourniquet and using clotting powder. Tourniquet was on for 20 minutes and then was taken off. On arrival to the ER his vital signs within normal limits. Hemoglobin 11.5 remainder of blood work rather unremarkable. Vascular surgery was consulted and saw the patient in the emergency department and placed a dressing. They requested the patient be monitored overnight for possible recurrent bleeding. His HgB remained stable. He had no recurrent bleeding. He was seen by Dr. Sams who felt he could be safly transitioned to the outpatient setting with close follow-up. Follow-up: Dr. Sams in the morning. Hold eliquis until seen by Dr Sams tomorrow. [place] for the next 3 days and hold ibuprofen for the next 2 days. Fol low-up with [facility] next week. Patient seen and examined at bedside. No more bleeding some aching in the left ankle that is worse when it is elevated and better when it is hanging low. Vital signs reviewed and stable. Derm: Dressing in place over left lower extremity. purple appearance to toes with some edema to the forefoot on the left. General: nontoxic, no distress, appears at stated age Cardiovascular: S1S2 reg, no murmur, positive posterior tibial pulse bilateral, Lungs: CTA bilateral, no rhonchi, no rales , no accessory muscle use Abdominal: soft, nontender to palpation, no guarding, no appreciable organomegaly Ext: no gross muscle atrophy, no edema b/l lower extremities, no contractures Neuro: CN II-XI grossly intact, no focal neuro deficits Psych: Alert, oriented, appropriate affect A total of 15 minutes of time were spent preparing this complex discharge summary. Patient was discharged on 09/10/22. This dictation was prepared using [employer] voice recognition software. Though every attempt is made to correct errors during dictation some may still exist. Patient Condition at Discharge: Stable Plan - Discharge Summary New Discharge Prescriptions: New HYDROcodone/APAP 5-325MG [[place] 5-325] 1 each PO Q4HR PRN #18 tab PRN Reason: Moderate Pain (Scale 4 To 6) Continue Atorvastatin [Lipitor] 20 mg PO HS #30 tab Tamsulosin [Flomax] 0.8 mg PO DAILY metFORMIN HCL [Glucophage] 500 mg PO BID Losartan [Cozaar] 50 mg PO DAILY Gabapentin [Neurontin] 100 mg PO TID Aspirin EC [Ecotrin] 325 mg PO DAILY Rivaroxaban [Xarelto] 2.5 mg PO BID #60 tab traZODone HCL [Desyrel] 25 mg PO HS Metoprolol Tartrate [Lopressor] 25 mg PO DAILY Ibuprofen [Motrin] 600 mg PO Q6HR PRN PRN Reason: Fever And/ Or Pain busPIRone HCl [Buspar] 5 mg PO BID Cholecalciferol [Vitamin D3 (125 Mcg = 5000 Iu)] 125 mcg PO DAILY Discharge Medication List Atorvastatin [Lipitor] 20 mg PO HS #30 tab 05/20/22 [Rx] Rivaroxaban [Xarelto] 2.5 mg PO BID #60 tab 05/20/22 [Rx] Aspirin EC [Ecotrin] 325 mg PO DAILY 09/09/22 [History] Cholecalciferol [Vitamin D3 (125 Mcg = 5000 Iu)] 125 mcg PO DAILY 09/09/22 [History] Gabapentin [Neurontin] 100 mg PO TID 09/09/22 [History] Ibuprofen [Motrin] 600 mg PO Q6HR PRN 09/09/22 [History] Losartan [Cozaar] 50 mg PO DAILY 09/09/22 [History] Metoprolol Tartrate [Lopressor] 25 mg PO DAILY 09/09/22 [History] Tamsulosin [Flomax] 0.8 mg PO DAILY 09/09/22 [History] busPIRone HCl [Buspar] 5 mg PO BID 09/09/22 [History] metFORMIN HCL [Glucophage] 500 mg PO BID 09/09/22 [History] traZODone HCL [Desyrel] 25 mg PO HS 09/09/22 [History] HYDROcodone/APAP 5-325MG [[place] 5-325] 1 each PO Q4HR PRN #18 tab 09/10/22 [Rx] Follow up Appointment(s)/Referral(s): [facility] [Primary Care [facility]] - 1-2 days Isael Sams MD [STAFF PHYSICIAN] - 1 Week (Patient to follow-up with Dr. Sams [place] morning between 9a.m. and 10a.m.) Patient Instructions/Handouts: Hydrocodone/Acetaminophen (By mouth), Varicose Veins (GEN) Activity/Diet/Wound Care/Special Instructions: Activity: As tolerated Diet: heart Healthy, consistent carb Wound Care: Keep dressing in place until you see Dr. Sams Special Instructions: No ibuprofen for the next 2 days, then you can resume Resume Xarelto on 09/11/[address] Sams Discharge Disposition: HOME SELF-CARE
== END 2022-09-10 11:22 | disposition home or self-care (01) ==
LOC: EC 14:40 → 5NMEDONC 17:04
PROVIDERS: ADMIT Internal Medicine; ATTEND Internal Medicine
DX: I83.892 Varicose veins of left lower extremity with other complications (principal); I87.8 Other specified disorders of veins; I83.028 Varicose veins of left lower extremity with ulcer other part of lower leg; D62 Acute posthemorrhagic anemia; E11.51 Type 2 diabetes mellitus with diabetic peripheral angiopathy without gangrene; M35.9 Systemic involvement of connective tissue, unspecified; I48.0 Paroxysmal atrial fibrillation; I42.9 Cardiomyopathy, unspecified; I10 Essential (primary) hypertension; F17.200 Nicotine dependence, unspecified, uncomplicated; Z98.890 Other specified postprocedural states; Z86.718 Personal history of other venous thrombosis and embolism; Z86.14 Personal history of Methicillin resistant Staphylococcus aureus infection; F41.9 Anxiety disorder, unspecified; Z83.3 Family history of diabetes mellitus; Z82.49 Family history of ischemic heart disease and other diseases of the circulatory system; Z82.3 Family history of stroke; Z79.01 Long term (current) use of anticoagulants; Z79.84 Long term (current) use of oral hypoglycemic drugs; Z79.82 Long term (current) use of aspirin; Z79.899 Other long term (current) drug therapy
CPT/HCPCS: 96376; 96374; 99285; 36415; 86900; 86901; 80048; 85025; 85027 ×2; 85610; 85730; 86850; G0378 ×2; J2270 ×2

== ENCOUNTER 2023-01-26 08:09 | Emergency (ER) | payer OTHER ==
--- NOTE | 2023-01-26 09:27 | ED ---
General Adult HPI - General Chief complaint: Neuro Symptoms/Deficit Stated complaint: light headed stiffness in neck heavy chest Time Seen by Provider: 01/26/23 08:41 Source: patient Mode of arrival: ambulatory Limitations: no limitations - History of Present Illness Initial comments: Dictation was produced using [employer] dictation software. please excuse any grammatical, word or spelling errors. Chief Complaint: 62-year-old male with multiple comorbidities presents to the ER for constitutional symptoms History of Present Illness: 62-year-old male presents emergency primary constitutional symptoms for the last 3-4 days. States that he had to walk 2 blocks to his prior care physician's office earlier when all of a sudden he sta rted to feel weak. States that he had some palpitations along with generalized weakness. Patient states that he feels like he has stuffiness to his face. Denies any fever or constitutional symptoms. He had few bouts of nonbilious nonbloody diarrhea. Denies any pain complaints. No sore throat or runny nose. No sick contacts. The ROS documented in this emergency department record has been reviewed and confirmed by me. Those systems with pertinent positive or negative responses have been documented in the HPI. All other systems are other negative and/or noncontributory. - Related Data Home Medications Medication Instructions Recorded Confirmed Cholecalciferol [Vitamin D3 (125 125 mcg PO DAILY 09/09/22 01/26/23 Mcg = 5000 Iu)] Ibuprofen [Motrin] 600 mg PO Q6HR PRN 09/09/22 01/26/23 Losartan [Cozaar] 50 mg PO DAILY 09/09/22 01/26/23 Metoprolol Tartrate [Lopressor] 25 mg PO DAILY 09/09/22 01/26/23 Tamsulosin [Flomax] 0.8 mg PO DAILY 09/09/22 01/26/23 metFORMIN HCL [Glucophage] 500 mg PO BID 09/09/22 01/26/23 Atorvastatin [Lipitor] 20 mg PO HS 11/13/22 01/26/23 Gabapentin [Neurontin] 300 mg PO TID 11/13/22 01/26/23 busPIRone HCL [Buspar] 7.5 mg PO BID 11/13/22 01/26/23 traZODone HCL [Desyrel] 100 mg PO HS 11/13/22 01/26/23 Aspirin 325 mg PO DAILY 01/26/23 01/26/23 Rivaroxaban [Xarelto] 2.5 mg PO BID 01/26/23 01/26/23 Allergies Allergy/AdvReac Type Severity Reaction Status Date / Time No Known Allergies Allergy Verified 01/26/23 11:41 Review of Systems ROS Statement: Those systems with pertinent positive or pertinent negative responses have been documented in the HPI. ROS Other: All systems not noted in ROS Statement are negative. Past Medical History Past Medical History: Atrial Fibrillation, Diabetes Mellitus, Deep Vein Thrombosis (DVT), Hyperlipidemia, Hypertension Additional Past Medical History / Comment(s): blood clots, cardiomyopathy, PAD History of Any Multi-Drug Resistant Organisms: MRSA Date of last positivie culture/infection: 07/05/21 MDRO Source:: Left Ankle Past Surgical History: Heart Catheterization, Tonsillectomy Additional Past Surgical History / Comment(s): stent to rt leg, Vein graft R leg Past Anesthesia/Blood Transfusion Reactions: No Reported Reaction Past Psychological History: Anxiety Smoking Status: Current every day smoker Past Alcohol Use History: Occasional Past Drug Use History: None Reported - Past Family History Mother Family Medical History: Diabetes Mellitus, Hypertension Additional Family Medical History / Comment(s): Family history of varicose veins. Father Family Medical History: CVA/TIA, Myocardial Infarction (MT) General Exam - General Exam Comments Initial Comments: PHYSICAL EXAM: General Impression: Alert and oriented x3, not in acute distress HEENT: Normocephalic atraumatic, extra-ocular movements intact, pupils equal and reactive to light bilaterally, mucous membranes moist. Cardiovascular: Heart regular rate and rhythm Chest: Able to complete full sentences, no retractions, no tachypnea Abdomen: abdomen soft, non-tender, non-distended, no organomegaly Musculoskeletal: Pulses present and equal in all extremities, no peripheral edema Motor: no focal deficits noted Neurological: CN II-XII grossly intact, no focal motor or sensory deficits noted Skin: Intact with no visualized rashes Psych: Normal affect and mood Limitations: no limitations Course Vital Signs 01/26/23 01/26/23 01/26/23 08:22 09:00 10:30 Temperature 97.7 F Pulse Rate 72 59 L 60 Respiratory 18 19 18 Rate Blood Pressure 109/72 129/86 131/78 O2 Sat by Pulse 97 Oximetry EKG Findings - EKG Comments: EKG Findings:: My EKG interpretation: Ventricular rate 63, sinus rhythm,. 146, QRS 151, QTC 422. Constant PVCs after each QRS wave. Overall this EKG is nonspecific Medical Decision Making - Medical Decision Making Was pt. sent in by a medical professional or institution ([facility], [facility], urgent care, hospital, or jail...) When possible be specific @ -No Did you speak to anyone other than the patient for history (EMS, parent, family, police, friend...)? What history was obtained from this source @ -No Did you review nursing and triage notes (agree or disagree)? Why? @ -I reviewed and agree with nursing and triage notes Were old charts reviewed (outside hosp., previous admission, EMS record, old EKG, old radiological studies, urgent care reports/EKG's, jail records)? Report findings @ -No old charts were reviewed Differential Diagnosis (chest pain, altered mental status, abdominal pain women, abdominal pain men, vaginal bleeding, musculoskeletal, weakness, fever, dyspnea, syncope, headache, dizziness, GI bleed, back pain, seizure, CVA, palpatations, mental health)? @ -Differential Weakness: Hypoglycemia, shock, sepsis, hyponatremia, anemia, infection, MT, ETOH, adverse medicine reaction, overdose, stroke, this is not meant to be an all-inclusive list. EKG interpreted by me (3pts min.). @ -See above X-rays interpreted by me (1pt min.). @ -Chest x-ray is nonacute CT interpreted by me (1pt min.). @ -None done U/S interpreted by me (1pt. min.). @ -None done What testing was considered but not performed or refused? (CT, X-rays, U/S, labs)? Why? @ -None What meds were considered but not given or refused? Why? @ -None Did you discuss the management of the patient with other professionals (professionals i.e. [facility] Soto, [facility], lab, RT, psych nurse, social worker psychiatric, cassandra architect, teacher, chief information officer, case folder)? Give summary @ -No Was smoking cessation discussed for >3mins.? @ -No Was critical care preformed (if so, how long)? @ -No Were there social determinants of health that impacted care today? How? (Homelessness, low income, unemployed, alcoholism, drug addiction, transportation, low edu. Level, literacy, decrease access to med. care, usp, rehab)? @ -No Was there de-escalation of care discussed even if they declined (Discuss DNR or withdrawal of care, Hospice)? DNR status @ -No What co-morbidities impacted this encounter? (DM, HTN, Smoking, COPD, CAD, Cancer, CVA, ARF, Chemo, Hep., AIDS, mental health diagnosis, sleep apnea, morbid obesity)? @ -None Was patient admitted / discharged? Hospital course, mention meds given and route, prescriptions, significant lab abnormalities, going to OR and other pert inent info. @ -62-year-old male presents to the emergency department for generalized symptoms. He has no focal symptoms. Vital signs upon arrival are within acceptable limits. Laboratory evaluation obtained. CBC, metabolic panel is unremarkable. Cardiac enzymes negative. No lactic acidosis. Viral testing is negative. X-rays negative. Patient observed in the emergency department for several hours. Reevaluation at bedside at 12:00 PM onto be stable medical condition. Patient is agreeable for discharge with outpatient follow-up with primary care doctor. Undiagnosed new problem with uncertain prognosis? @ -No Drug Therapy requiring intensive monitoring for toxicity (Heparin, Nitro, Insulin, Cardizem)? @ -No Were any procedures done? @ -No Diagnosis/symptom? Acute, or Chronic, or Acute on Chronic? Uncomplicated (without systemic symptoms) or Complicated (systemic symptoms)? @ -Generalized weakness Side effects of treatment? @ -No Exacerbation, Progression, or Severe Exacerbation? @ -No Poses a threat to life or bodily function? How? (Chest pain, USA, MT, pneumonia, PE, COPD, DKA, ARF, appy, cholecystitis, CVA, Diverticulitis, Homicidal, Suicidal, threat to staff... and all critical care pts) @ -No - Lab Data Result diagrams: 01/26/23 10:43 01/26/23 10:45 Lab Results 01/26/23 01/26/23 01/26/23 Range/Units 10:43 10:43 10:43 WBC 8.0 (3.8-10.6) k/uL RBC 4.29 L (4.30-5.90) m/uL Hgb 11.1 L (13.0-17.5) gm/dL Hct 35.0 L (39.0-53.0) % MCV 81.7 (80.0-100.0) fL MCH 25.8 (25.0-35.0) pg MCHC 31.6 (31.0-37.0) g/dL RDW 17.4 H (11.5-15.5) % Plt Count 262 (150-450) k/uL MPV 7.9 Neutrophils % 71 % Lymphocytes % 17 % Monocytes % 7 % Eosinophils % 3 % Basophils % 0 % Neutrophils # 5.6 (1.3-7.7) k/uL Lymphocytes # 1.4 (1.0-4.8) k/uL Monocytes # 0.5 (0-1.0) k/uL Eosinophils # 0.2 (0-0.7) k/uL Basophils # 0.0 (0-0.2) k/uL Hypochromasia Moderate Anisocytosis Slight Microcytosis Slight Sodium (137-145) mmol/L Potassium (3.5-5.1) mmol/L Chloride (98-107) mmol/L Carbon Dioxide (22-30) mmol/L Anion Gap mmol/L BUN (9-20) mg/dL Creatinine (0.66-1.25) mg/dL Est GFR (CKD-EPI)AfAm (>60 ml/min/1.73 sqM) Est GFR (CKD-EPI)NonAf (>60 ml/min/1.73 sqM) Glucose (74-99) mg/dL Plasma Lactic Acid Juancarlos 1.1 (0.7-2.0) mmol/L Calcium (8.4-10.2) mg/dL Magnesium (1.6-2.3) mg/dL Total Bilirubin (0.2-1.3) mg/dL AST (17-59) U/L ALT (4-49) U/L Alkaline Phosphatase (38-126) U/L Troponin I <0.012 (0.000-0.034) ng/mL Total Protein (6.3-8.2) g/dL Albumin (3.5-5.0) g/dL Influenza Type A (PCR) (Not Detectd) Influenza Type B (PCR) (Not Detectd) RSV (PCR) (Not Detectd) SARS-CoV-2 (PCR) (Not Detectd) 01/26/23 01/26/23 Range/Units 10:43 10:45 WBC (3.8-10.6) k/uL RBC (4.30-5.90) m/uL Hgb (13.0-17.5) gm/dL Hct (39.0-53.0) % MCV (80.0-100.0) fL MCH (25.0-35.0) pg MCHC (31.0-37.0) g/dL RDW (11.5-15.5) % Plt Count (150-450) k/uL MPV Neutrophils % % Lymphocytes % % Monocytes % % Eosinophils % % Basophils % % Neutrophils # (1.3-7.7) k/uL Lymphocytes # (1.0-4.8) k/uL Monocytes # (0-1.0) k/uL Eosinophils # (0-0.7) k/uL Basophils # (0-0.2) k/uL Hypochromasia Anisocytosis Microcytosis Sodium 136 L (137-145) mmol/L Potassium 4.7 (3.5-5.1) mmol/L Chloride 101 (98-107) mmol/L Carbon Dioxide 22 (22-30) mmol/L Anion Gap 13 mmol/L BUN 13 (9-20) mg/dL Creatinine 1.02 (0.66-1.25) mg/dL Est GFR (CKD-EPI)AfAm >90 (>60 ml/min/1.73 sqM) Est GFR (CKD-EPI)NonAf 79 (>60 ml/min/1.73 sqM) Glucose 88 (74-99) mg/dL Plasma Lactic Acid Juancarlos (0.7-2.0) mmol/L Calcium 9.4 (8.4-10.2) mg/dL Magnesium 1.9 (1.6-2.3) mg/dL Total Bilirubin 0.6 (0.2-1.3) mg/dL AST 28 (17-59) U/L ALT 12 (4-49) U/L Alkaline Phosphatase 61 (38-126) U/L Troponin I (0.000-0.034) ng/mL Total Protein 7.1 (6.3-8.2) g/dL Albumin 4.3 (3.5-5.0) g/dL Influenza Type A (PCR) Not Detected (Not Detectd) Influenza Type B (PCR) Not Detected (Not Detectd) RSV (PCR) Not Detected (Not Detectd) SARS-CoV-2 (PCR) Not Detected (Not Detectd) Disposition Clinical Impression: Weakness Disposition: HOME SELF-CARE Condition: Good Instructions (If sedation given, give patient instructions): Weakness (ED) Is patient prescribed a controlled substance at d/c from ED?: No Referrals: [facility] [Primary Care Provider] - 1-2 days Time of Disposition: 12:09
--- NOTE | 2023-01-26 09:43 | XR ---
EXAMINATION TYPE: XR chest 2V DATE OF EXAM: 01/26/2023 COMPARISON: 01/23/2020 HISTORY: 62-year-old male shortness of breath, constitutional symptoms TECHNIQUE: PA and lateral views FINDINGS: Heart normal size. Aorta and pulmonary vasculature within normal limits. No consolidation or pleural effusion. Mild hyperinflation. IMPRESSION: Mild hyperinflation may related to depth of inspiration or underlying emphysema. Otherwise, no acute process seen.
[2023-01-26 11:08] LABS: Anisocytosis Slight; Basophils % (A) 0 %; Eosinophils # (A) 0.2 k/uL (0-0.7); Eosinophils % (A) 3 %; HGB 11.1 gm/dL (13.0-17.5); Hypochromasia Moderate; Lymphocytes # (A) 1.4 k/uL (1.0-4.8); Lymphocytes % (A) 17 %; MCH 25.8 pg (25.0-35.0); MCHC 31.6 g/dL (31.0-37.0); MCV 81.7 fL (80.0-100.0); Mean Platelet Volume 7.9; Microcytosis Slight; Monocytes # (A) 0.5 k/uL (0-1.0); Monocytes % (A) 7 %; Neutrophils # (A) 5.6 k/uL (1.3-7.7); Neutrophils % (A) 71 %; Platelet Count 262 k/uL (150-450); RBC 4.29 m/uL (4.30-5.90); RDW 17.4 % (11.5-15.5)
[2023-01-26 11:10] LABS: ALT 12 U/L (4-49); AST 28 U/L (17-59); African American GFR (CKD) >90 (>60 ml/min/1.73 sqM); Albumin 4.3 g/dL (3.5-5.0); Alkaline Phosphatase 61 U/L (38-126); Anion Gap 13 mmol/L; Blood Urea Nitrogen 13 mg/dL (9-20); Calcium 9.4 mg/dL (8.4-10.2); Carbon Dioxide 22 mmol/L (22-30); Chloride 101 mmol/L (98-107); Glucose 88 mg/dL (74-99); Magnesium 1.9 mg/dL (1.6-2.3); Non-African American GFR(CKD) 79 (>60 ml/min/1.73 sqM); Potassium 4.7 mmol/L (3.5-5.1); Sodium 136 mmol/L (137-145); Total Bilirubin 0.6 mg/dL (0.2-1.3); Total Protein 7.1 g/dL (6.3-8.2)
[2023-01-26 13:04] VITALS: BP 121/68; PULSE 65; RESP 18; TEMP 98.1
== END 2023-01-26 12:52 | disposition home or self-care (01) ==
LOC: EC 08:09
DX: R53.1 Weakness (principal); I45.10 Unspecified right bundle-branch block; E11.9 Type 2 diabetes mellitus without complications; E78.5 Hyperlipidemia, unspecified; I10 Essential (primary) hypertension; I48.91 Unspecified atrial fibrillation; F41.9 Anxiety disorder, unspecified; F17.200 Nicotine dependence, unspecified, uncomplicated; Z79.899 Other long term (current) drug therapy; Z79.82 Long term (current) use of aspirin; Z79.84 Long term (current) use of oral hypoglycemic drugs; Z79.01 Long term (current) use of anticoagulants; Z20.822 Contact with and (suspected) exposure to COVID-19
CPT/HCPCS: 36415; 71046; 80053; 83605; 83735; 84484; 85025; 87636; 93005; 99284

== ENCOUNTER 2023-05-16 10:56 | Day surgery (SDC) | payer OTHER ==
[~2023-05-16 10:56] MED LIST: ALPRAZolam 0.25 MG TAB PO PRN; HEPARIN SODIUM,PORCINE (1 ML) 2,500 UNIT in SODIUM CHLORIDE 0.9% 250 ML IRRIGATION PRN; HEPARIN SODIUM,PORCINE 10,000 UNIT in SODIUM CHLORIDE 0.9% 1,000 ML IRRIGATION PRN; ZOLPIDEM 5 MG TAB PO PRN
[2023-05-16 11:21] LABS: Glucose,Whole Blood 120 mg/dL (70-110)
[2023-05-16] MEDS: SODIUM CHLORIDE 0.9% 500 ML 500 ML IV ONE (11:26)
[2023-05-16 11:42] LABS: Anisocytosis Slight; Basophils # (A) 0.1 k/uL (0-0.2); Basophils % (A) 1 %; Eosinophils # (A) 0.3 k/uL (0-0.7); Eosinophils % (A) 4 %; HCT 39.8 % (39.0-53.0); HGB 11.9 gm/dL (13.0-17.5); Hypochromasia Marked; Lymphocytes # (A) 1.1 k/uL (1.0-4.8); Lymphocytes % (A) 12 %; MCH 24.2 pg (25.0-35.0); MCHC 29.9 g/dL (31.0-37.0); Mean Platelet Volume 8.2; Microcytosis Slight; Monocytes # (A) 0.6 k/uL (0-1.0); Monocytes % (A) 6 %; Neutrophils # (A) 7.3 k/uL (1.3-7.7); Neutrophils % (A) 76 %; Platelet Count 336 k/uL (150-450); RBC 4.92 m/uL (4.30-5.90); RDW 17.8 % (11.5-15.5); WBC 9.6 k/uL (3.8-10.6)
[2023-05-16] MEDS: ASPIRIN 325 MG TAB PO PRN (11:45)
[2023-05-16 11:51] LABS: African American GFR (CKD) 90 (>60 ml/min/1.73 sqM); Anion Gap 10 mmol/L; Blood Urea Nitrogen 17 mg/dL (9-20); Carbon Dioxide 22 mmol/L (22-30); Chloride 105 mmol/L (98-107); Glucose 117 mg/dL (74-99); Non-African American GFR(CKD) 78 (>60 ml/min/1.73 sqM); Potassium 4.5 mmol/L (3.5-5.1); Sodium 137 mmol/L (137-145)
[2023-05-16] MEDS ORDERED: fentaNYL (PF) 50 MCG/ML 2 ML AMP ONE ×2 (12:44→13:41)
[2023-05-16] MEDS ORDERED: LIDOCAINE 1% INJ 10MG/ML (20 ML MDV) ONE (12:44)
[2023-05-16] MEDS: fentaNYL (PF) 50 MCG/1 ML VIAL IVP ONE ×5 (13:05→13:45)
[2023-05-16] MEDS: MIDAZOLAM 2 MG/2 ML VIAL IVP ONE ×4 (13:05→13:45)
[2023-05-16] MEDS ORDERED: CLOPIDOGREL 75 MG TAB ONE (13:09)
[2023-05-16] MEDS: HEPARIN SODIUM 1,000 UN/ML (10ML VL) IVP ONE ×4 (13:23→14:23)
[2023-05-16] MEDS: CLOPIDOGREL 75 MG TAB PO ONE (13:26)
[2023-05-16] MEDS: IOPAMIDOL-370 100ML BTL INTRATHECA ONE (14:23)
--- NOTE | 2023-05-16 14:41 | IR ---
EXAMINATION TYPE: IR angio abdominal w runoff DATE OF EXAM: 05/16/2023 COMPARISON: NONE HISTORY: Fluoroscopy time. Fluoroscopy was provided to the referring clinician.
--- NOTE | 2023-05-16 14:49 | P.PCN ---
Description of Procedure: PROCEDURES PERFORMED: Left lower extremity runoff, GUEST RELATIONS COORDINATOR and overlapping 6.0 x 140, 6.0 x 120, 7.0 x 80mm Zilver LYUBOV of left SFA, IVUS left SFA INDICATION: critical limb ischemia with rest pain as well as claudication with minimal exertion, prior angiogram showing 100% left SFA stenosis CONSENT:I have discussed the risks, benefits and alternative therapies for the above-mentioned procedure and for both sedation/analgesia as well as necessary blood product administration, if indicated, as they pertain to this patient. The patient has indicated understanding and acceptance of the risks and procedures discussed. PROCEDURE: After the risks, benefits and alternatives of the above mentioned procedure explained in detail with the patient, informed consent was obtained. Patient was taken to the catheterization lab and prepped and draped in usual fashion. 1% lidocaine was used to anesthetize the right femoral area. A 6-Maltese sheath was placed in the right femoral artery using modified Seldinger technique. A rim catheter and a 0.035 stiff glide were used to come up and over and a 6-Maltese destination sheath was placed. Left lower extremity angiograms were performed which showed similar anatomy as before. Next, the decision was made to perform intervention of the left SFA. IV heparin was given. A 0.035 stiff glide wire in a glide catheter was used to cross the lesion. Balloon angioplasty was performed with a 4.0 balloon. Next overlapping 6.0 x 140mm Zilver distally, 6.0 x 120mm Zilver and 7.0 x 8.0mm Zilver LYUBOV proximal left SFA were placed. The stent was post dilated with a 6.0mm balloon. Final angiograms were performed. Pre intervention there was 100% stenosis with no antegrade flow. Post intervention there was <10% stenosis and uninhibted flow. There was diffuse calcification of the right femoral artery and therefore sheath left in place to be pulled manually. The patient tolerated the procedure well. Patient was transported back to the post catheterization holding area in stable condition. Conscious Sedation: Patient was monitored under the direct supervision of vision of myself for conscious sedation using Versed and fentanyl for a total duration of 75 minutes HEMODYNAMICS: Ao: 165/71 Left lower extremity: Left common iliac artery: There is no significant stenosis. Left external iliac artery: There is no significant stenosis. Left internal iliac artery: There is 100% internal iliac stenosis. Left common femoral artery: There is no significant stenosis. Left profunda: There is no significant stenosis. 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 Left popliteal artery: There is mild 20-30% stenosis. Left tibioperoneal trunk: There is no significant stenosis. Left anterior tibial artery: There is no significant stenosis. Left posterior tibial artery: There is no significant stenosis. Left peroneal artery: There is no significant stenosis. FINAL IMPRESSION: 1. Peripheral arterial disease as described above including left SFA 100% stenosis. 2. S/p successful GUEST RELATIONS COORDINATOR and overlapping 6.0 x 140, 6.0 x 120, 7.0 x 80mm Zilver LYUBOV of left SFA PLAN: 1. Aggressive risk factor modification per most recent ACC/AHA guidelines. 2. Continue dual antiplatelets with aspirin and Plavix for 6 months 3. Discussed tobacco cessation and referred patient to [place] quit [place] program
[2023-05-16 14:57] LABS: Glucose,Whole Blood 106 mg/dL (70-110)
[2023-05-16] MEDS ORDERED: DEXTROSE 50% SYRINGE 50 ML IVP PRN ×2 (15:07)
[2023-05-16] MEDS: EMPTY BAG 1 BAG with SODIUM CHLORIDE 0.9% 1,000 ML IV SCH (15:46)
[2023-05-16] MEDS ORDERED: NALOXONE 0.4 MG/ML 1 ML VIAL IVP PRN (15:49)
[2023-05-16] MEDS: LOSARTAN 50 MG TAB PO SCH (16:04)
[2023-05-16] MEDS: METOPROLOL TARTRATE 25 MG TAB PO SCH (16:04)
[2023-05-16] MEDS: GABAPENTIN 300 MG CAP PO SCH (16:04)
[2023-05-16] MEDS: SODIUM CHLORIDE 0.9% 1,000 ML in EMPTY BAG 1 BAG IV SCH (16:05)
[2023-05-16 16:32] LABS: Glucose,Whole Blood 142 mg/dL (70-110)
[2023-05-16] MEDS: INSULIN ASPART (NovoLOG) 100 UNIT/ML VIAL SQ SCH (16:32)
[2023-05-16] MEDS: ATROPINE SULFATE 0.1 MG/ML 10ML SYRINGE ONE (17:19)
[2023-05-16] MEDS: ATORVASTATIN 20 MG TAB PO SCH (20:07)
[2023-05-16] MEDS: busPIRone HCl 5 MG TAB PO SCH (20:07)
[2023-05-16 20:30] LABS: Glucose,Whole Blood 133 mg/dL (70-110)
[2023-05-16 22:50] LABS: ALT 19 U/L (4-49); AST 31 U/L (17-59); African American GFR (CKD) >90 (>60 ml/min/1.73 sqM); Albumin 3.7 g/dL (3.5-5.0); Alkaline Phosphatase 60 U/L (38-126); Anion Gap 4 mmol/L; Blood Urea Nitrogen 17 mg/dL (9-20); Calcium 8.5 mg/dL (8.4-10.2); Carbon Dioxide 21 mmol/L (22-30); Chloride 110 mmol/L (98-107); Glucose 83 mg/dL (74-99); Non-African American GFR(CKD) 89 (>60 ml/min/1.73 sqM); Potassium 4.5 mmol/L (3.5-5.1); Sodium 135 mmol/L (137-145); Total Bilirubin 0.4 mg/dL (0.2-1.3); Total Protein 6.3 g/dL (6.3-8.2)
[2023-05-16] MEDS: ALPRAZolam 0.5 MG TAB PO PRN (23:13)
[2023-05-16] MEDS: traZODone HCL 100 MG TAB PO SCH (23:13)
[2023-05-17 06:31] LABS: Glucose,Whole Blood 107 mg/dL (70-110)
[2023-05-17] MEDS: RIVAROXABAN 2.5 MG TABLET PO SCH (07:29)
[2023-05-17] MEDS: CLOPIDOGREL 75 MG TAB PO SCH (07:30)
[2023-05-17] MEDS: CHOLECALCIFEROL 125 MCG (5000 IU) TABLET PO SCH (07:30)
[2023-05-17] MEDS: TAMSULOSIN 0.4 MG CAP.ER.24H PO SCH (07:30)
--- NOTE | 2023-05-17 07:31 | P.DS ---
Providers Attending physician: Angus Shaikh DO Primary care physician: [facility] Course: Patient is a pleasant 63-year-old male with history of PAD, hypertension, hyperlipidemia, tobacco abuse who has been having left lower extremity pain at rest as well as claudication symptoms in his calf with minimal exertion. This has been lifestyle limiting and has a known history of PAD with left SFA 100% stenosis. Given lifestyle limiting claudication we therefore recommended angiography with possible intervention. He underwent left lower extremity angiography 05/15 from a right femoral approach with findings of similar long segment left SFA 100% stenosis. He underwent successful stenting with excellent result. He was placed on Plavix and had some mild left thigh pain 05/16 however no hematoma around his femoral site. He appears stable for discharge home on 05/16. Plan - Discharge Summary Discharge Rx Participant: No New Discharge Prescriptions: New Clopidogrel [Plavix] 75 mg PO DAILY #90 tab Continue Tamsulosin [Flomax] 0.8 mg PO DAILY metFORMIN HCL [Glucophage] 500 mg PO BID Losartan [Cozaar] 50 mg PO DAILY busPIRone HCL [Buspar] 7.5 mg PO BID Rivaroxaban [Xarelto] 2.5 mg PO BID Metoprolol Tartrate [Lopressor] 25 mg PO DAILY Cholecalciferol [Vitamin D3 (125 Mcg = 5000 Iu)] 125 mcg PO DAILY traZODone HCL [Desyrel] 100 mg PO HS Atorvastatin [Lipitor] 20 mg PO HS Gabapentin [Neurontin] 300 mg PO TID Aspirin 325 mg PO DAILY Discharge Medication List Cholecalciferol [Vitamin D3 (125 Mcg = 5000 Iu)] 125 mcg PO DAILY 09/09/22 [History] Losartan [Cozaar] 50 mg PO DAILY 09/09/22 [History] Metoprolol Tartrate [Lopressor] 25 mg PO DAILY 09/09/22 [History] Tamsulosin [Flomax] 0.8 mg PO DAILY 09/09/22 [History] metFORMIN HCL [Glucophage] 500 mg PO BID 09/09/22 [History] Atorvastatin [Lipitor] 20 mg PO HS 11/13/22 [History] Gabapentin [Neurontin] 300 mg PO TID 11/13/22 [History] busPIRone HCL [Buspar] 7.5 mg PO BID 11/13/22 [History] traZODone HCL [Desyrel] 100 mg PO HS 11/13/22 [History] Aspirin 325 mg PO DAILY 01/26/23 [History] Rivaroxaban [Xarelto] 2.5 mg PO BID 01/26/23 [History] Clopidogrel [Plavix] 75 mg PO DAILY #90 tab 05/17/23 [Rx] Follow up Appointment(s)/Referral(s): Angus Shaikh DO [STAFF PHYSICIAN] - 1 Week (APPOINTMENT MADE ON May @ 8:45AM ) Patient Instructions/Handouts: Moderate Sedation (DC), After Radial Heart Catheterization (GEN) Activity/Diet/Wound Care/Special Instructions: *NO LIFTING, PUSHING, OR PULLING ANYTHING OVER 5 POUNDS FOR 5 DAYS *NO DRIVING FOR 3 DAYS *YOU CAN REMOVE YOUR DRESSING TOMORROW BUT DO NOT SUBMERSE YOUR PUNCTURE SITE IN WATER FOR A FEW DAYS TO PREVENT INFECTION - SO NO TUB BATHS, POOLS, HOT TUBS, DISHES...ETC *ANY SIGNS OF BLEEDING (HARDNESS, SWELLING, OR EXCESSIVE BRUISING) HOLD DIRECT PRESSURE ON YOUR PUNCTURE SITE AND COME TO THE NEAREST EMERGENCY ROOM TO GET YOUR PUNCTURE SITE LOOKED AT - DO NOT DRIVE YOURSELF! EITHER CALL EMS OR HAVE SOMEONE DRIVE YOU!
[2023-05-17 09:19] VITALS: TEMP 98.2
[2023-05-17 11:12] LABS: African American GFR (CKD) >90 (>60 ml/min/1.73 sqM); Non-African American GFR(CKD) >90 (>60 ml/min/1.73 sqM)
[2023-05-17 11:48] VITALS: BP 157/84; PULSE 69; RESP 16
== END 2023-05-17 12:44 | disposition home or self-care (01) ==
LOC: CATHCVL 10:56 → 3SCARD 14:50 → CATHCVL 05-17 12:44
PROVIDERS: ATTEND Internal Medicine
DX: I70.213 Atherosclerosis of native arteries of extremities with intermittent claudication, bilateral legs (principal); I10 Essential (primary) hypertension; E78.5 Hyperlipidemia, unspecified; Z79.01 Long term (current) use of anticoagulants; Z79.02 Long term (current) use of antithrombotics/antiplatelets; Z79.82 Long term (current) use of aspirin; Z79.84 Long term (current) use of oral hypoglycemic drugs
CPT/HCPCS: 80053; 80048; 82565; 83735; 85025; 37226; 37252; 99152; 99153 ×2; C1769 ×6; C1894 ×3; C1725 ×2; C1753; C1874 ×3; C1887; J2250; J1644; Q9967; J3010; 76937

== ENCOUNTER 2023-09-09 21:30 | Inpatient (IN) | payer OTHER ==
[2023-09-09] MEDS: SODIUM CHLORIDE 0.9% 1,000 ML IV STA (21:56)
[2023-09-09] MEDS: ONDANSETRON 4 MG/2 ML VIAL IVP STA (21:56)
[2023-09-09] MEDS: HYDROmorphone 1 MG/ML 1 ML SYRINGE IVP STA (21:59)
--- NOTE | 2023-09-09 22:00 | ED ---
Fall HPI - General Chief Complaint: Fall Stated Complaint: Fall Time Seen by Provider: 09/09/23 21:31 Source: patient, RN notes reviewed, old records reviewed Mode of arrival: EMS Limitations: no limitations - History of Present Illness Initial Comments: This is a 63-year-old male to the ER today. This patient presents today for evaluation regards to ultrasound of severe right hip pain after fall. 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 Place Fall Occurred: home Loss of Consciousness: none Prolonged Down Time?: no Symptoms Prior to Fall: none Location - Extremities: Right: Thigh, Leg Severity: severe Severity scale (1-10): 9 Context: tripped/slipped Associated Symptoms: denies - Related Data Home Medications Medication Instructions Recorded Confirmed Losartan [Cozaar] 50 mg PO DAILY 09/09/22 09/10/23 Metoprolol Tartrate [Lopressor] 25 mg PO DAILY 09/09/22 09/10/23 Tamsulosin [Flomax] 0.8 mg PO DAILY 09/09/22 09/10/23 metFORMIN HCL [Glucophage] 500 mg PO BID 09/09/22 09/10/23 Atorvastatin [Lipitor] 20 mg PO HS 11/13/22 09/10/23 traZODone HCL [Desyrel] 100 mg PO HS 11/13/22 09/10/23 Aspirin EC [Ecotrin] 325 mg PO DAILY 09/10/23 09/10/23 Cholecalciferol (Vitamin D3) 125 mcg PO DAILY 09/10/23 09/10/23 [Vitamin D3 (125 MCG = 5,000 IU)] FLUoxetine HCL [PROzac] 20 mg PO DAILY 09/10/23 09/10/23 Rivaroxaban [Xarelto] 20 mg PO DAILY 09/10/23 09/10/23 Previous Rx's Medication Instructions Recorded Clopidogrel [Plavix] 75 mg PO DAILY #90 tab 05/17/23 Allergies Allergy/AdvReac Type Severity Reaction Status Date / Time No Known Allergies Allergy Verified 09/11/23 13:42 Review of Systems ROS Statement: Those systems with pertinent positive or pertinent negative responses have been documented in the HPI. ROS Other: All systems not noted in ROS Statement are negative. Past Medical History Past Medical History: Atrial Fibrillation, Diabetes Mellitus, Deep Vein Thrombosis (DVT), Hyperlipidemia, Hypertension Additional Past Medical History / Comment(s): blood clots, cardiomyopathy, PAD History of Any Multi-Drug Resistant Organisms: MRSA Date of last positivie culture/infection: 07/05/21 MDRO Source:: Left Ankle Past Surgical History: Orthopedic Surgery Additional Past Surgical History / Comment(s): stent to rt leg, Vein graft R leg. stents to left leg Past Anesthesia/Blood Transfusion Reactions: No Reported Reaction Past Psychological History: Anxiety Smoking Status: Current every day smoker Past Alcohol Use History: Occasional - Past Family History Mother Family Medical History: Diabetes Mellitus, Hypertension Additional Family Medical History / Comment(s): Family history of varicose veins. Father Family Medical History: CVA/TIA, Myocardial Infarction (PA) General Exam Limitations: no limitations General appearance: alert, in no apparent distress Head exam: Present: atraumatic, normocephalic, normal inspection Eye exam: Present: normal appearance, PERRL, EOMI. Absent: scleral icterus, conjunctival injection, periorbital swelling ENT exam: Present: normal exam, mucous membranes moist Neck exam: Present: normal inspection. Absent: tenderness, meningismus, lymphadenopathy Respiratory exam: Present: normal lung sounds bilaterally. Absent: respiratory distress, wheezes, rales, rhonchi, stridor Cardiovascular Exam: Present: regular rate, normal rhythm, normal heart sounds. Absent: systolic murmur, diastolic murmur, rubs, gallop, clicks GI/Abdominal exam: Present: soft, normal bowel sounds. Absent: distended, tenderness, guarding, rebound, rigid Extremities exam: Present: normal inspection, full ROM, normal capillary refill. Absent: tenderness, pedal edema, joint swelling, calf tenderness Back exam: Present: normal inspection Neurological exam: Present: alert, oriented X3, CN II-XII intact Psychiatric exam: Present: normal affect, normal mood Skin exam: Present: warm, dry, intact, normal color. Absent: rash Course Vital Signs 09/09/23 09/10/23 09/10/23 21:31 00:00 02:17 Temperature 97.9 F Pulse Rate 74 75 64 Respiratory 18 19 18 Rate Blood Pressure 178/91 196/96 138/69 O2 Sat by Pulse 94 L 96 96 Oximetry 09/10/23 02:46 Temperature Pulse Rate 61 Respiratory 16 Rate Blood Pressure 141/78 O2 Sat by Pulse 97 Oximetry - Reevaluation(s) Reevaluation #1: 09/10/23 00:36 Medical records reviewed Reevaluation #2: 09/10/23 00:36 Patient symptoms improving difficult to control pain Reevaluation #3: 09/10/23 00:36 Patient informed of results questions answered Reevaluation #4: Was pt. sent in by a medical professional or institution (, [facility]ADAN, RESTAURANT LEAD, urgent care, hospital, or intermediate...) When possible be specific @ -no Did you speak to anyone other than the patient for history (EMS, parent, family, police, friend...)? What history was obtained from this source @ -no Did you review nursing and triage notes (agree or disagree)? Why? @ -agree Are old charts reviewed (outside hosp., previous admission, EMS record, old EKG, old radiological studies, urgent care reports/EKG's, intermediate records)? Report findings @ -yes Differential Diagnosis (chest pain, altered mental status, abdominal pain women, abdominal pain men, vaginal bleeding, weakness, fever, dyspnea, syncope, headache, dizziness, GI bleed, back pain, seizure, CVA, palpatations, mental health, musculoskeletal)? @ -prior EKG interpreted by me (3pts min.). @ -yes X-rays interpreted by me (1pt min.). @ -yes negative for acute disease CT interpreted by me (1pt min.). @ -Negative for acute disease U/S interpreted by me (1pt. min.). @ -no What testing was considered but not performed or refused? (CT, X-rays, U/S, labs)? Why? @ -none What meds were considered but not given or refused? Why? @ -none Did you discuss the management of the patient with other professionals (professionals i.e. LADAN Soto, RESTAURANT LEAD, lab, RT, psych nurse, administrator social welfare, cylinder inspector, teacher, public information officer, vocational case manager)? Give summary @ -no Was smoking cessation discussed for >3mins.? @ -no Was critical care preformed (if so, how long)? @ -no Were there social determinants of health that impacted care today? How? (Homelessness, low income, unemployed, alcoholism, drug addiction, transportation, low edu. Level, literacy, decrease access to med. care, long-term, re hab)? @ -none Was there de-escalation of care discussed even if they declined (Discuss DNR or withdrawal of care, Hospice)? DNR status @ -no What co-morbidities impacted this encounter? (DM, HTN, Smoking, COPD, CAD, Cancer, CVA, ARF, Chemo, Hep., AIDS, mental health diagnosis, sleep apnea, morbid obesity)? @ -none Was patient admitted / discharged? Hospital course, mention meds given and route, prescriptions, significant lab abnormalities, going to OR and other pertinent info. @ - 63 male to ER for evaluation of fall fall with right hip fracture right hip femoral neck and will admit for surgical evaluation and management Admitted Undiagnosed new problem with uncertain prognosis? @ -no Drug Therapy requiring intensive monitoring for toxicity (Heparin, Nitro, Insulin, Cardizem)? @ -no Were any procedures done? @ -no Diagnosis/symptom? @ -Fall with right hip fracture Acute, or Chronic, or Acute on Chronic? @ -Acute Uncomplicated (without systemic symptoms) or Complicated (systemic symptoms)? @ -Complicated Side effects of treatment? @ -no Exacerbation, Progression, or Severe Exacerbation? @ -exacerbation Poses a threat to life or bodily function? How? (Chest pain, USA, PA, pneumonia, PE, COPD, DKA, ARF, appy, cholecystitis, CVA, Diverticulitis, Homicidal, Suicidal, threat to staff... and all critical care pts) @ -yes fall with right hip fracture - Consultations Consultation #1: Spoke with Dr. Goodman umana who agrees to admit this patient Medical Decision Making - Medical Decision Making 63 male to ER for evaluation of fall fall with right hip fracture right hip femoral neck and will admit for surgical evaluation and management - Lab Data Result diagrams: 09/09/23 21:41 09/09/23 21:41 Lab Results 09/09/23 09/09/23 09/09/23 Range/Units 21:41 21:41 21:41 WBC 7.9 (3.8-10.6) k/uL RBC 4.51 (4.30-5.90) m/uL Hgb 11.1 L (13.0-17.5) gm/dL Hct 36.6 L (39.0-53.0) % MCV 81.1 (80.0-100.0) fL MCH 24.7 L (25.0-35.0) pg MCHC 30.4 L (31.0-37.0) g/dL RDW 19.6 H (11.5-15.5) % Plt Count 313 (150-450) k/uL MPV 7.7 Neutrophils % 72 % Lymphocytes % 18 % Monocytes % 6 % Eosinophils % 2 % Basophils % 0 % Neutrophils # 5.7 (1.3-7.7) k/uL Lymphocytes # 1.5 (1.0-4.8) k/uL Monocytes # 0.5 (0-1.0) k/uL Eosinophils # 0.2 (0-0.7) k/uL Basophils # 0.0 (0-0.2) k/uL Hypochromasia Marked Anisocytosis Slight Microcytosis Slight PT 10.5 (10.0-12.5) sec INR 1.0 (<1.2) APTT 22.1 (22.0-30.0) sec Sodium 138 (137-145) mmol/L Potassium 4.8 (3.5-5.1) mmol/L Chloride 110 H (98-107) mmol/L Carbon Dioxide 17 L (22-30) mmol/L Anion Gap 11 mmol/L BUN 18 (9-20) mg/dL Creatinine 1.41 H (0.66-1.25) mg/dL Est GFR (CKD-EPI)AfAm 62 (>60 ml/min/1.73 sqM) Est GFR (CKD-EPI)NonAf 53 (>60 ml/min/1.73 sqM) Glucose 100 H (74-99) mg/dL Calcium 9.3 (8.4-10.2) mg/dL Phosphorus 3.1 (2.5-4.5) mg/dL Magnesium 2.0 (1.6-2.3) mg/dL Total Bilirubin 0.7 (0.2-1.3) mg/dL AST 35 (17-59) U/L ALT 18 (4-49) U/L Alkaline Phosphatase 58 (38-126) U/L Troponin I (0.000-0.034) ng/mL NT-Pro-B Natriuret Pep 3070 pg/mL Total Protein 7.0 (6.3-8.2) g/dL Albumin 4.5 (3.5-5.0) g/dL 09/09/23 Range/Units 21:41 WBC (3.8-10.6) k/uL RBC (4.30-5.90) m/uL Hgb (13.0-17.5) gm/dL Hct (39.0-53.0) % MCV (80.0-100.0) fL MCH (25.0-35.0) pg MCHC (31.0-37.0) g/dL RDW (11.5-15.5) % Plt Count (150-450) k/uL MPV Neutrophils % % Lymphocytes % % Monocytes % % Eosinophils % % Basophils % % Neutrophils # (1.3-7.7) k/uL Lymphocytes # (1.0-4.8) k/uL Monocytes # (0-1.0) k/uL Eosinophils # (0-0.7) k/uL Basophils # (0-0.2) k/uL Hypochromasia Anisocytosis Microcytosis PT (10.0-12.5) sec INR (<1.2) APTT (22.0-30.0) sec Sodium (137-145) mmol/L Potassium (3.5-5.1) mmol/L Chloride (98-107) mmol/L Carbon Dioxide (22-30) mmol/L Anion Gap mmol/L BUN (9-20) mg/dL Creatinine (0.66-1.25) mg/dL Est GFR (CKD-EPI)AfAm (>60 ml/min/1.73 sqM) Est GFR (CKD-EPI)NonAf (>60 ml/min/1.73 sqM) Glucose (74-99) mg/dL Calcium (8.4-10.2) mg/dL Phosphorus (2.5-4.5) mg/dL Magnesium (1.6-2.3) mg/dL Total Bilirubin (0.2-1.3) mg/dL AST (17-59) U/L ALT (4-49) U/L Alkaline Phosphatase (38-126) U/L Troponin I <0.012 (0.000-0.034) ng/mL NT-Pro-B Natriuret Pep pg/mL Total Protein (6.3-8.2) g/dL Albumin (3.5-5.0) g/dL - EKG Data -: EKG Interpreted by Me (EKG shows A-fib 75 QRS 146 QTc 468) - Radiology Data Radiology results: report reviewed (CT brain C-spine chest pelvis and right hip x-ray positive for right hip fracture), image reviewed Disposition Clinical Impression: Fall, Closed right hip fracture Disposition: ADMITTED IP TO THIS HOSP Condition: Fair Is patient prescribed a controlled substance at d/c from ED?: No Time of Disposition: 00:40
[2023-09-09 22:03] LABS: Anisocytosis Slight; Basophils % (A) 0 %; Eosinophils # (A) 0.2 k/uL (0-0.7); Eosinophils % (A) 2 %; HCT 36.6 % (39.0-53.0); HGB 11.1 gm/dL (13.0-17.5); Hypochromasia Marked; Lymphocytes # (A) 1.5 k/uL (1.0-4.8); Lymphocytes % (A) 18 %; MCH 24.7 pg (25.0-35.0); MCHC 30.4 g/dL (31.0-37.0); MCV 81.1 fL (80.0-100.0); Mean Platelet Volume 7.7; Microcytosis Slight; Monocytes # (A) 0.5 k/uL (0-1.0); Monocytes % (A) 6 %; Neutrophils # (A) 5.7 k/uL (1.3-7.7); Neutrophils % (A) 72 %; Platelet Count 313 k/uL (150-450); RBC 4.51 m/uL (4.30-5.90); RDW 19.6 % (11.5-15.5); WBC 7.9 k/uL (3.8-10.6)
[2023-09-09 22:28] LABS: Partial Thromboplastin Time 22.1 sec (22.0-30.0); Prothrombin Time 10.5 sec (10.0-12.5)
[2023-09-09 22:37] LABS: ALT 18 U/L (4-49); AST 35 U/L (17-59); African American GFR (CKD) 62 (>60 ml/min/1.73 sqM); Albumin 4.5 g/dL (3.5-5.0); Alkaline Phosphatase 58 U/L (38-126); Anion Gap 11 mmol/L; Blood Urea Nitrogen 18 mg/dL (9-20); Calcium 9.3 mg/dL (8.4-10.2); Carbon Dioxide 17 mmol/L (22-30); Chloride 110 mmol/L (98-107); Glucose 100 mg/dL (74-99); Non-African American GFR(CKD) 53 (>60 ml/min/1.73 sqM); Phosphorus 3.1 mg/dL (2.5-4.5); Potassium 4.8 mmol/L (3.5-5.1); Sodium 138 mmol/L (137-145); Total Bilirubin 0.7 mg/dL (0.2-1.3)
--- NOTE | 2023-09-09 22:37 | XR ---
EXAMINATION TYPE: XR chest 1V portable DATE OF EXAM: 09/09/2023 COMPARISON: Chest x-ray January 26, 2023 HISTORY: Fall TECHNIQUE: 3 frontal views of the chest are obtained. FINDINGS: There is no suspicious new focal air space opacity, pleural effusion, or pneumothorax seen . The cardiac silhouette size is upper limits of normal. Degenerative change bilateral acromioclavic ular joints is present. IMPRESSION: No acute process.
--- NOTE | 2023-09-09 22:39 | XR ---
EXAMINATION TYPE: XR Hip RT and AP Pelvis DATE OF EXAM: 09/09/2023 COMPARISON: NONE HISTORY: Fall TECHNIQUE: A single AP view of the pelvis is obtained. Two views of the right hip are obtained. FINDINGS: There is acute minimally displaced oblique fracture through the femoral neck of the right hip. No hip joint dislocation. Moderate axial joint space loss both hips is present. Pubic symphysis is intact. Sacroiliac joints are preserved. Overlying arterial vascular calcification is present. IMPRESSION: There is acute minimally displaced oblique fracture through the femoral neck of the righ t hip.
[2023-09-09 22:41] LABS: NT-Pro-B-Type Natriuretic Pept 3070 pg/mL
--- NOTE | 2023-09-09 23:01 | CT ---
EXAMINATION TYPE: CT brain [place] [facility] con DATE OF EXAM: 09/09/2023 COMPARISON: NONE HISTORY: pt bib ems from his workplace. pt fell and on xeralto at home. rt side hip pain no loc did n ot hit head. has rt rotation with shortening per ems. 100mcgs fentanyl IV 20g lh CT DLP: 1347.2 mGycm. Automated Exposure Control for Dose Reduction was Utilized. TECHNIQUE: CT scan of the head and cervical spine are performed without contrast. FINDINGS: There is no acute intracranial hemorrhage, mass effect, or midline shift identified. The ventricles and sulci are within normal limits in size for patient's age. Marino-white matter differen tiation is maintained. The calvarium is intact. The globes are intact and the visualized sinuses are clear. Cervical spine is visualized in its entirety from C1 through upper thoracic levels and demonstrates g rade 1 anterolisthesis C4 on C5 without evidence of acute fracture or dislocation. Prevertebral soft tissue appears within normal limits. The C1-C2 articulation is within normal limits on the coronal images. Vertebral body heights are maintained. Moderate disc space narrowing at C5-C6 level is prese nt. Review of axial images shows multilevel vertebral facet degenerative changes bilaterally. Lungs a re clear without pneumothorax. Moderate calcified plaque right greater than left carotid bulb level i s seen. IMPRESSION: 1. There is no acute fracture or dislocation evident in the cervical spine. 2. No acute intracranial hemorrhage or midline shift is seen.
[2023-09-10] MEDS ORDERED: NALOXONE 0.4 MG/ML 1 ML VIAL IV PRN (00:34)
[2023-09-10] MEDS: HYDROmorphone 1 MG/ML 1 ML SYRINGE IVP PRN (00:46)
[2023-09-10] MEDS: SODIUM CHLORIDE 0.9% 1,000 ML IV SCH (00:47)
[2023-09-10 01:41] LABS: Appearance,Urine Clear (Clear); Bilirubin,Urine Negative (Negative); Blood,Urine Negative (Negative); Color,Urine Yellow; Glucose,Urine (UA) Negative (Negative); Ketones,Urine 1+ (Negative); Leukocyte Esterase,Urine Negative (Negative); Nitrite,Urine Negative (Negative); PH, Urine 5.5 (5.0-8.0); Protein,Urine Negative (Negative); Specific Gravity,Urine 1.016 (1.001-1.035); Urobilinogen,Urine <2.0 mg/dL (<2.0)
[2023-09-10] MEDS: LABETALOL 5 MG/ML VIAL MDV IVP STA (02:00)
[2023-09-10 05:44] LABS: Glucose,Whole Blood 103 mg/dL (70-110)
[2023-09-10] MEDS: INSULIN ASPART (NovoLOG) 100 UNIT/ML VIAL SQ SCH (05:59)
--- NOTE | 2023-09-10 07:50 | P.HPOR ---
History of Present Illness H&P Date: 09/10/23 Chief Complaint: Right hip pain 63-year-old male presents for evaluation of right hip pain after a slip and fall at work. 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 He was brought to the emergency department via EMS. Patient denies any loss of consciousness or blunt head trauma with the fall. He does complain of some neck pain however and a whiplash type syndrome. He denies any hip pain previously in this hip. He states he is very functional with this hip. He does state a fairly extensive vascular history in bilateral lower extremities for which he has been treated multiple times with grafts and stents. He also has a fairly extensive cardiac history of atrial fibrillation on Plavix and aspirin. Patient denies any fevers chills or some breath or chest pain at this time. He denies any nausea vomiting headache blurred vision double vision. Review of Systems 16 points review of systems completed and as stated in HPI, all other systems reviewed are negative. Past Medical History Past Medical History: Atrial Fibrillation, Diabetes Mellitus, Deep Vein Thrombosis (DVT), Hyperlipidemia, Hypertension Additional Past Medical History / Comment(s): blood clots, cardiomyopathy, PAD History of Any Multi-Drug Resistant Organisms: MRSA Date of last positivie culture/infection: 07/05/21 MDRO Source:: Left Ankle Past Surgical History: Orthopedic Surgery Additional Past Surgical History / Comment(s): stent to rt leg, Vein graft R leg. stents to left leg Past Anesthesia/Blood Transfusion Reactions: No Reported Reaction Past Psychological History: Anxiety Smoking Status: Current every day smoker Past Alcohol Use History: Occasional - Past Family History Mother Family Medical History: Diabetes Mellitus, Hypertension Additional Family Medical History / Comment(s): Family history of varicose veins. Father Family Medical History: CVA/TIA, Myocardial Infarction (ID) Medications and Allergies Home Medications Medication Instructions Recorded Confirmed Type Cholecalciferol [Vitamin D3 (125 125 mcg PO DAILY 09/09/22 05/16/23 History Mcg = 5000 Iu)] Losartan [Cozaar] 50 mg PO DAILY 09/09/22 05/16/23 History Metoprolol Tartrate [Lopressor] 25 mg PO DAILY 09/09/22 05/16/23 History Tamsulosin [Flomax] 0.8 mg PO DAILY 09/09/22 05/16/23 History metFORMIN HCL [Glucophage] 500 mg PO BID 09/09/22 05/16/23 History Atorvastatin [Lipitor] 20 mg PO HS 11/13/22 05/16/23 History Gabapentin [Neurontin] 300 mg PO TID 11/13/22 05/16/23 History busPIRone HCL [Buspar] 7.5 mg PO BID 11/13/22 05/16/23 History traZODone HCL [Desyrel] 100 mg PO HS 11/13/22 05/16/23 History Aspirin 325 mg PO DAILY 01/26/23 05/16/23 History Rivaroxaban [Xarelto] 2.5 mg PO BID 01/26/23 05/16/23 History Clopidogrel [Plavix] 75 mg PO DAILY #90 tab 05/17/23 Rx Allergies Allergy/AdvReac Type Severity Reaction Status Date / Time No Known Allergies Allergy Verified 05/14/23 08:46 Physical Examination Osteopathic Statement: *. No significant issues noted on an osteopathic structural exam other than those noted in the History and Physical/Consult. Physical Exam: -Patient is alert and oriented 3 appears well-nourished well-hydrated is in no acute distress. They do not appear septic. -There is TTP About the right hip proximally. -No open wounds about the hip. The patient is a vasculopath with mottling of the lower extremities he does have an open sore on the medial aspect of the left ankle is healing at this time. -Upper extremities show [5] out of 5 strength in all major muscle groups. -Lower extremities with [5] out of 5 strength in all major muscle groups Except for right hip testing which is limited secondary to the pain in his hip and fracture -There is [FROM] that is [painless] of the b/l UE and LE in all major joints. Except for the right hip were log roll is positive with severe pain. The p atient is unable to flex the hip remove it secondary to pain. Range of motion is limited to the right knee secondary to pain in the hip. Ankle has normal function. -They are intact to light touch sensation in C5 to T1 and L2 to S1 nerve distribution. -DTR [2]/4 all upper and lower extremities -Patient has palpable distal pulses all 4 ext -Compartments are soft and compressible. -Patient shows a negative Gisella's [-Neg Hoffmans b/l] [-Neg Clonus b/l] [-Neg babinski b/l] Cranial nerves II through XII are grossly intact. - Hip right Tenderness with palpation: anterior, posterior, greater trochanter Pain with motion: internal rotation and hip flexion, internal rotation and hip extension, external rotation and hip flexion, external rotation and hip extension ROM: extension: 0 degrees ROM: flexion: 0 degrees ROM: abduction: 0 degrees ROM: adduction: 0 degrees ROM: internal rotation: 0 degrees ROM: external rotation: 0 degrees Crepitus with motion: Yes (Painful range of motion unit of fracture) Strength: extension: 3/5 Strength: flexion: 3/5 Strength: abduction: 3/5 Strength: adduction: 3/5 Strength: internal rotation: 3/5 Strength: external rotation: 3/5 Tests: impingement tests: positive, instability tests: negative - Knee right Appearance: normal Varus alignment in stance: normal Valgus alignment in stance: normal Tenderness with palpation: none Pain: no pain Full ROM: yes ROM: hyperextension: normal ROM: extension: normal ROM: flexion: normal Crepitus with motion: No Strength: extension: 5/5 Strength: flexion: 5/5 Patella exam: normal Meniscal tests: medial meniscal tests: negative, lateral meniscal tests: negative, medial joint line pain: negative, lateral joint line pain: negative - Ankle & Foot right Ankle appearance: normal Foot appearance: normal Tenderness with palpation: none Ankle pain worse with weight bearing: No Ankle pain relieved by non-weight bearing: No Foot pain worse with weight bearing: No Foot pain relieved by non-weight bearing: No Ankle alignment: normal Foot alignment: normal Hallux valgus measurement: 0 degrees Hammer toe location: none Claw toe location: none Full ROM: yes ROM: dorsiflexion: normal ROM: plantarflexion: normal ROM: eversion: normal ROM: first MTP joint flexion: 45 degrees ROM: first MTP joint extension: normal Strength: dorsiflexion: 5/5 Strength: plantarflexion: 5/5 Strength: inversion: 5/5 Strength: eversion: 5/5 Strength: toe extension: 5/5 Strength: toe flexion: 5/5 Instability: anterior drawer: negative, deltoid ligament injury tests: negative, anterior talofibular ligament injury tests: negative, calcaneofibular ligament injury tests: negative, posterior talofibular injury tests: negative Tests: achilles rupture tests: negative, DVT tests: negative, Tinel's sign at sural nerve: negative, Tinel's sign at tarsal tunnel: negative - Cervical Spine Neck pain: sudden onset Pain modifiers: with flexion, with extension Previous treatment: ice: effective, NSAIDs: effective, pain medication: effectiv e, muscle relaxant: effective Tenderness with palpation: none Full ROM: yes ROM: flexion: normal ROM: extension: normal ROM: rotation right: normal ROM: rotation left: normal ROM: lateral flexion right: normal ROM: lateral flexion left: normal Crepitus with motion: No Cranial nerve abnormalities: optic nerve II: no, oculomotor III: no, trochlear IV: no, trigeminal V: no, destibulocochlear VIII: no, glossopharyngeal IX: no, vegus X: no, accessory XI: no, hypoglossal XII: no - C Spine: dermatomal strength & reflexes bilateral Shoulder strength: flexion: 5/5 Shoulder strength: extension: 5/5 Shoulder strength: abduction: 5/5 Shoulder strength: adduction: 5/5 Shoulder strength: internal rotation: 5/5 Shoulder strength: external rotation: 5/5 Wrist strength: flexion: 5/5 Wrist strength: extension: 5/5 Wrist strength: pronation: 5/5 Wrist strength: supination: 5/5 Wrist strength: radial deviation: 5/5 Wrist strength: ulnar deviation: 5/5 Strength: rehanger: 5/5 Reflexes: biceps: grade 2, brachial radialis: grade 2, triceps: grade 2 Results AP pelvis and right hip demonstrate a right femoral neck fracture which is complete. 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 CT exam of the pelvis is ordered. No other osseous abnormalities are noted at this time. CT of the cervical spine is reviewed and demonstrates spondylosis with cervical spine however no fractures dislocations or other alignment issues. C1- C2 as well as Occipitocervical joints are stable at this time. - Labs Labs: Abnormal Lab Results - Last 24 Hours (Table) 09/09/23 09/09/23 09/10/23 Range/Units 21:41 21:41 01:21 Hgb 11.1 L (13.0-17.5) gm/dL Hct 36.6 L (39.0-53.0) % MCH 24.7 L (25.0-35.0) pg MCHC 30.4 L (31.0-37.0) g/dL RDW 19.6 H (11.5-15.5) % Chloride 110 H (98-107) mmol/L Carbon Dioxide 17 L (22-30) mmol/L Creatinine 1.41 H (0.66-1.25) mg/dL Glucose 100 H (74-99) mg/dL Urine Ketones 1+ H (Negative) H & H 09/09/23 Range/Units 21:41 Hgb 11.1 L (13.0-17.5) gm/dL Hct 36.6 L (39.0-53.0) % Coagulation 09/09/23 Range/Units 21:41 INR 1.0 (<1.2) Result Diagrams: 09/09/23 21:41 09/09/23 21:41 Assessment and Plan (1) Fracture of femoral neck, right, closed Current Visit: Yes Status: Acute Code(s): S72.001A - FRACTURE OF UNSP PART OF NECK OF RIGHT FEMUR, INIT SNOMED Code(s): 258490005 (2) Neuropathy Current Visit: Yes Status: Acute Code(s): G62.9 - POLYNEUROPATHY, UNSPECIFIED SNOMED Code(s): 580988629 (3) Fall Current Visit: Yes Status: Acute Code(s): W19.XXXA - UNSPECIFIED FALL, INITIAL ENCOUNTER SNOMED Code(s): 7967379 (4) Arterial insufficiency of lower extremity Current Visit: No Status: Acute Code(s): I73.9 - PERIPHERAL VASCULAR DISEASE, UNSPECIFIED SNOMED Code(s): 715545354234001 (5) History of atrial fibrillation Current Visit: No Status: Acute Code(s): Z86.79 - PERSONAL HISTORY OF OTHER DISEASES OF THE CIRCULATORY SYSTEM SNOMED Code(s): 184906310 (6) PAD (peripheral artery disease) Current Visit: No Status: Acute Code(s): I73.9 - PERIPHERAL VASCULAR DISEASE, UNSPECIFIED SNOMED Code(s): 663214199 (7) Pain of right lower extremity Current Visit: No Status: Acute Code(s): M79.604 - PAIN IN RIGHT LEG SNOME D Code(s): 675852051 Plan: -Nonweightbearing right lower extremity -Condom cath -Pain control -hold anticoagulation mechanical at this time -CT of the pelvis to assess anatomy and displacement of fracture right hip ordered - Add muscle relaxer for spasm control -NPO @ [facility] for surgery -Cardio and med clearances for surgical intervention 1.5-2 hr surgery -Plan is for surgical fixation of the right hip tomorrow 09/11/23 GERMÁN vs Geo vs Screw fixation depending on CT exam.
[2023-09-10] MEDS: PANTOPRAZOLE 40 MG/10 ML VIAL IV SCH (08:30)
--- NOTE | 2023-09-10 08:45 | CT ---
EXAMINATION TYPE: CT pelvis wo con DATE OF EXAM: 09/10/2023 COMPARISON: X-ray 09/09/2023 HISTORY: Right femoral neck fracture CT DLP: 289 mGycm Automated exposure control for dose reduction was used. FINDINGS: There is a displaced right femoral neck fracture. There is adjacent soft tissue edema. Bilateral hip arthropathy and degenerative change lower lumbar spine. There is a large fat-containing left inguinal hernia and small fat-containing right inguinal hernia. Atherosclerotic change of the vasculature. Atherosclerotic changes of the vasculature. IMPRESSION: 1. NONDISPLACED RIGHT FEMORAL NECK FRACTURE. 2. BILATERAL FAT-CONTAINING INGUINAL HERNIAS.
[2023-09-10] MEDS: METOPROLOL TARTRATE 25 MG TAB PO SCH (10:35)
[2023-09-10] MEDS: LOSARTAN 50 MG TAB PO SCH (10:36)
[2023-09-10] MEDS: HYDROcodone/APAP 10-325MG 1 EACH TAB PO PRN (10:40)
--- NOTE | 2023-09-10 10:45 | P.CONS ---
History of Present Illness - Reason for Consult Consult date: 09/10/23 - Chief Complaint preoperative clearance - History of Present Illness 63-year-old male with medical history of paroxysmal atrial fibrillation, peripheral arterial disease status post multiple PCI's to the lower extremities, hypertension/hyperlipidemia/diabetes, BPH presented for evaluation of left hip fracture. Medicine was consulted for preoperative clearance as well as medical management. Over the last 4 months, since his previous stent, patient is able to ambulate approximately 100 to 200 yards according to the patient prior to experiencing claudication symptoms in his left lower extremity. During these episodes of exercise, he does note intermittent episodes of chest pain. At home , he is able to take care of all of his IADLs and ADLs, has 2 flights of stairs, and is able to slowly walk up these steps, but is limited due to pain in his lower extremities. Patient had a mechanical fall resulting in hip fracture and was brought in by ambulance for further management. Denies fevers, chills, nausea vomiting. Denies palpitations. Today, patient is afebrile, 178/81, heart rate 65, 97% on 2 L of nasal cannula. CBC shows anemia down to 11.1. Basic metabolic panel shows chloride of 110, CO2 of 17, creatinine of 1.41. His creatinine represents an acute kidney injury. Liver function tests are unremarkable. Troponin is less than 0.012. BNP is 3070. Urinalysis shows 1+ ketones, otherwise unremarkable. Coags are unremarkable. Chest x-ray does show hyperinflated lungs, otherwise no acute process. Hip and pelvis x-ray demonstrates oblique fracture that is minimally r eplaced of the femoral neck of the right hip. Head/cervical spine CT is negative for acute pathology or bleed. EKG shows multifocal atrial rhythm without tachycardia. Pelvis CT confirmed findings of the hip and x-ray. All Systems reviewed and pertinent positives and negatives noted in HPI, all o ther symptoms are negative Gen: In NAD, non-toxic HEENT: normocephalic, atraumatic, hearing acuity is intant, mucous membranes moist CVS: perfusing all extremities well, no pitting edema, Respiratory: symmetric chest expansion, no accessory muscle use, GI: soft, NTTP, ND, : no suprapubic tenderness, no CVA tenderness MSK/Derm: no rashes, cyanosis Neuro: CN II-XII intact, no motor weakness, Psych: cooperative, euthymic mood, judgment and insight is intact Assessment/plan: Preoperative clearance Right hip fracture -NSQIP estimates risk of MACE at 1.2%, this is an elevated risk to average for an intermediate risk procedure. -Okay to proceed to surgery without further need of testing, though I agree with obtaining a baseline echo -hold xarelto, ASA/Plavix. PAD Paroxysmal Atrial Fibrillation -ASA/Plavix per cardiology following procedure -Xarelto vs other DVT PPx per ortho team following surgery -continue metoprol HTN HLD DM, type II BPH -home meds reviewed and reconciled Pt is Full Code Past Medical History Past Medical History: Atrial Fibrillation, Diabetes Mellitus, Deep Vein Thrombosis (DVT), Hyperlipidemia, Hypertension Additional Past Medical History / Comment(s): blood clots, cardiomyopathy, PAD History of Any Multi-Drug Resistant Organisms: MRSA Year Discovered:: 07/05/21 MDRO Source:: Left Ankle Past Surgical History: Orthopedic Surgery Additional Past Surgical History / Comment(s): stent to rt leg, Vein graft R leg. stents to left leg Past Anesthesia/Blood Transfusion Reactions: No Reported Reaction Past Psychological History: Anxiety Smoking Status: Current every day smoker Past Alcohol Use History: Occasional - Past Family History Mother Family Medical History: Diabetes Mellitus, Hypertension Additional Family Medical History / Comment(s): Family history of varicose veins. Father Family Medical History: CVA/TIA, Myocardial Infarction (MA) Medications and Allergies Home Medications Medication Instructions Recorded Confirmed Type Losartan [Cozaar] 50 mg PO DAILY 09/09/22 09/10/23 History Metoprolol Tartrate [Lopressor] 25 mg PO DAILY 09/09/22 09/10/23 History Tamsulosin [Flomax] 0.8 mg PO DAILY 09/09/22 09/10/23 History metFORMIN HCL [Glucophage] 500 mg PO BID 09/09/22 09/10/23 History Atorvastatin [Lipitor] 20 mg PO HS 11/13/22 09/10/23 History traZODone HCL [Desyrel] 100 mg PO HS 11/13/22 09/10/23 History Clopidogrel [Plavix] 75 mg PO DAILY #90 tab 05/17/23 09/10/23 Rx Aspirin EC [Ecotrin] 325 mg PO DAILY 09/10/23 09/10/23 History Cholecalciferol (Vitamin D3) 125 mcg PO DAILY 09/10/23 09/10/23 History [Vitamin D3 (125 MCG = 5,000 IU)] FLUoxetine HCL [PROzac] 20 mg PO DAILY 09/10/23 09/10/23 History Rivaroxaban [Xarelto] 20 mg PO DAILY 09/10/23 09/10/23 History Allergies Allergy/AdvReac Type Severity Reaction Status Date / Time No Known Allergies Allergy Verified 09/10/23 09:46 Physical Exam Osteopathic Statement: *. No significant issues noted on an osteopathic struct ural exam other than those noted in the History and Physical/Consult. Vitals: Vital Signs Temp Pulse Pulse Resp BP BP BP 09/10/23 07:35 98.2 F 65 14 178/81 09/10/23 03:11 97.8 F 65 20 158/84 09/10/23 02:46 61 16 141/78 09/10/23 02:17 64 18 138/69 09/10/23 00:00 75 19 196/96 09/09/23 21:31 97.9 F 74 18 178/91 Pulse Ox 09/10/23 07:35 97 09/10/23 03:11 99 09/10/23 02:46 97 09/10/23 02:17 96 09/10/23 00:00 96 09/09/23 21:31 94 L Intake and Output 09/09/23 09/10/23 09/10/23 22:59 06:59 14:59 Output Total 300 Balance -300 Output: Urine 300 Other: Voiding Method Urinal Weight 78.471 kg Results CBC & Chem 7: 09/09/23 21:41 09/09/23 21:41 Labs: Abnormal Lab Results - Last 24 Hours (Table) 09/09/23 09/09/23 09/10/23 Range/Units 21:41 21:41 01:21 Hgb 11.1 L (13.0-17.5) gm/dL Hct 36.6 L (39.0-53.0) % MCH 24.7 L (25.0-35.0) pg MCHC 30.4 L (31.0-37.0) g/dL RDW 19.6 H (11.5-15.5) % Chloride 110 H (98-107) mmol/L Carbon Dioxide 17 L (22-30) mmol/L Creatinine 1.41 H (0.66-1.25) mg/dL Glucose 100 H (74-99) mg/dL Urine Ketones 1+ H (Negative)
[2023-09-10 11:53] LABS: Glucose,Whole Blood 98 mg/dL (70-110)
--- NOTE | 2023-09-10 12:13 | CA ---
Transthoracic Echo Report Name: Mc Dangelo Age: 63 Gender: M : 1960 Exam Date: 09/10/2023 10:19 Exam Location: [place] [facility] Ht (in): 70 Wt (lb): 173 Ordering Physician: Linette Clements Attending/Referring Phys: [id number], Starr Car Oiler Sharmaine Mas RDCS Procedure CPT: Indications: LVF Cardiac Hx: Technical Quality: Fair Contrast 1: Total Dose (mL): Contrast 2: Total Dose (mL): MEASUREMENTS (Male / Female) Normal Values 2D ECHO LV Diastolic Diameter PLAX 5.2 cm 4.2 - 5.9 / 3.9 - 5.3 cm LV Systolic Diameter PLAX 3.5 cm IVS Diastolic Thickness 1.0 cm 0.6 - 1.0 / 0.6 - 0.9 cm LVPW Diastolic Thickness 0.9 cm 0.6 - 1.0 / 0.6 - 0.9 cm LV Relative Wall Thickness 0.4 LVOT Diameter 2.3 cm LA Volume 50.6 cm??? 18 - 58 / 22 - 52 cm??? LA Volume Index 25.6 cm???/m??? 16 - 28 cm???/m??? Ascending Aorta Diameter 3.4 cm DOPPLER AV Peak Velocity 187.1 cm/s AV Peak Gradient 14.0 mmHg AV Mean Velocity 119.8 cm/s AV Mean Gradient 6.6 mmHg AV Velocity Time Integral 38.7 cm LVOT Peak Velocity 106.4 cm/s LVOT Peak Gradient 4.5 mmHg LVOT Velocity Time Integral 22.8 cm LVOT Stroke Volume 94.1 cm??? LVOT Stroke Volume Index 48.0 ml/m??? LVOT Cardiac Index 3143.4 cm???/min???m??? AV Area Cont Eq vti 2.4 cm??? AV Area Cont Eq pk 2.4 cm??? MV Area PHT 3.6 cm??? Mitral E Point Velocity 75.4 cm/s Mitral A Point Velocity 50.5 cm/s Mitral E to A Ratio 1.5 MV Deceleration Time 209.2 ms TR Peak Velocity 305.0 cm/s TR Peak Gradient 37.2 mmHg Right Atrial Pressure 15.0 mmHg Pulmonary Artery Systolic Pressu 52.2 mmHg Right Ventricular Systolic Press 52.2 mmHg PV Peak Velocity 79.2 cm/s PV Peak Gradient 2.5 mmHg FINDINGS Left Ventricle Left ventricular ejection fraction is estimated at 60 %. Left ventricular cavity size normal. Left ventricular wall thickness normal. No obvious regional wall motion abnormalities. Right Ventricle Normal right ventricular size and function. Moderate pulmonary hypertension. Right Atrium Normal right atrial size. Left Atrium Normal left atrial size. Mitral Valve Structurally normal mitral valve. No evidence for mitral valve prolapse. No mitral stenosis. Trace mitral regurgitation. Aortic Valve Trileaflet aortic valve. No aortic stenosis. No aortic regurgitation. Tricuspid Valve Structurally normal tricuspid valve. No tricuspid stenosis. Mild tricuspid regurgitation. Pulmonic Valve Structurally normal pulmonic valve. No pulmonic stenosis. Trace pulmonic regurgitation. Pericardium No pericardial effusion. Aorta Normal size aortic root and proximal ascending aorta. CONCLUSIONS LV function is normal with an ejection fraction of 60% Previewed by: Dr. Jarod Spencer MD (Electronically Signed) Final Date: 10 September 2023 12:12
--- NOTE | 2023-09-10 12:42 | P.CRDCN ---
History of Present Illness Consult date: 09/10/23 Reason for Consult (text): Cardiac clearance History of present illness: This is a 63-year-old male patient of Dr. Shaikh with past medical history of paroxysmal atrial fibrillation on Xarelto, PAD status post prior right intervention for right acute limb ischemia, venous insufficiency, polycythemia, tobacco use and dependence, prior alcohol abuse, hypertension, diabetes mellitus type 2, cardiomyopathy with previous EF of 35%. Patient was last seen in the office on 05/24/2023 at which time and Xarelto was increased to 20 mg for atrial f ibrillation versus PAD dosing. Patient recently underwent left SFA with improvement of the lower extremity calf pain. Patient presented to the emergency center for trip and fall with severe right hip pain, inability to ambulate and was found to have a right femoral neck fracture. Patient has been admitted to the orthopedic service with plan for right hip hemiarthroplasty tomorrow. Blood pressure 178/81, heart rate 65, pulse ox 97% on 2 L nasal cannula. He denies having any chest pain or shortness of breath. EKG: Sinus rhythm, right bundle branch block Chest x-ray: No acute process. CT of the brain, cervical spine revealed no acute fracture or dislocation of the cervical spine and no acute intracranial hemorrhage or midline shift. Pelvic CT: Nondisplaced right femoral neck fracture. Bilateral fat-containing inguinal hernias. Laboratory studies: WBC 7.9, hemoglobin 11.1. BUN 18 creatinine 1.41. Troponin negative x 1. proBNP 3070 Home cardiac medications according to office note: Aspirin 81 mg daily, atorvastatin 20 mg at bedtime, Plavix 75 mg daily, losartan 50 mg daily, Lopre ssor 25 mg twice daily, Xarelto 20 mg with supper. Review Of Systems: At the time of my exam: CONSTITUTIONAL: Denies fever or chills. HEENT: Denies blurred vision, vision changes, or eye pain. Denies hemoptysis CARDIOVASCULAR: Denies chest pain. Denies orthopnea. Denies PND. Denies palpitations RESPIRATORY: Denies shortness of breath. GASTROINTESTINAL: Denies abdominal pain. Denies nausea or vomiting. HEMATOLOGIC: Denies bleeding disorders. GENITOURINARY: Denies any blood in urine. SKIN: Denies puritis. Denies rash. Physical examination: Gen: This is a 63-year-old male patient in no acute distress VS: reviewed HEENT: Head is atraumatic, normocephalic. Pupils equal, round. Sclerae is an icteric. NECK: Supple. No JVD. LUNGS: Clear to auscultation. No wheezes or rhonchi. No intercostal retractions. HEART: Regular rate and rhythm. No murmur. ABDOMEN: Soft No tenderness. EXTREMITIES: No pedal edema. No calf tenderness. NEUROLOGICAL: Patient is awake, alert and oriented x3. Assessment: Right femoral neck fracture Acute kidney injury Paroxysmal atrial fibrillation currently in sinus rhythm Hypertension Diabetes mellitus type 2 Chronic systolic heart failure Cardiomyopathy with a EF of 35% unknown if ischemic or nonischemic PAD with prior SFA occlusion and stenting and eventual bypass in 2020. Nonhealing ulcer underwent venous ablation and now being evaluated for possible phlebectomy patient has not had a previous cart Polycythemia Tobacco use and dependence Prior alcohol abuse Plan: Resume patient's home cardiac medications except hold aspirin, Plavix, Xarelto for surgery and resume once cleared by orthopedics. Obtain 2-D echocardiogram and Doppler study to assess cardiac structure and function Patient is at increased risk for complications from anesthesia during the perioperative time due to history of CHF, atrial fibrillation. However, there are no absolute contraindications for surgical intervention. Further recommendations to follow based upon clinical course Thank you kindly for this consultation. Nurse practitioner note has been reviewed, I agree with documented findings and plan of care. Patient was seen and examined. Past Medical History Past Medical History: Atrial Fibrillation, Diabetes Mellitus, Deep Vein Thrombosis (DVT), Hyperlipidemia, Hypertension Additional Past Medical History / Comment(s): blood clots, cardiomyopathy, PAD History of Any Multi-Drug Resistant Organisms: MRSA Date of last positivie culture/infection: 07/05/21 MDRO Source:: Left Ankle Past Surgical History: Orthopedic Surgery Additional Past Surgical History / Comment(s): stent to rt leg, Vein graft R leg. stents to left leg Past Anesthesia/Blood Transfusion Reactions: No Reported Reaction Past Psychological History: Anxiety Smoking Status: Current every day smoker Past Alcohol Use History: Occasional - Past Family History Mother Family Medical History: Diabetes Mellitus, Hypertension Additional Family Medical History / Comment(s): Family history of varicose veins. Father Family Medical History: CVA/TIA, Myocardial Infarction ([place]) Medications and Allergies Home Medications Medication Instructions Recorded Confirmed Type Losartan [Cozaar] 50 mg PO DAILY 09/09/22 09/10/23 History Metoprolol Tartrate [Lopressor] 25 mg PO DAILY 09/09/22 09/10/23 History Tamsulosin [Flomax] 0.8 mg PO DAILY 09/09/22 09/10/23 History metFORMIN HCL [Glucophage] 500 mg PO BID 09/09/22 09/10/23 History Atorvastatin [Lipitor] 20 mg PO HS 11/13/22 09/10/23 History traZODone HCL [Desyrel] 100 mg PO HS 11/13/22 09/10/23 History Clopidogrel [Plavix] 75 mg PO DAILY #90 tab 05/17/23 09/10/23 Rx Aspirin EC [Ecotrin] 325 mg PO DAILY 09/10/23 09/10/23 History Cholecalciferol (Vitamin D3) 125 mcg PO DAILY 09/10/23 09/10/23 History [Vitamin D3 (125 MCG = 5,000 IU)] FLUoxetine HCL [PROzac] 20 mg PO DAILY 09/10/23 09/10/23 History Rivaroxaban [Xarelto] 20 mg PO DAILY 09/10/23 09/10/23 History Allergies Allergy/AdvReac Type Severity Reaction Status Date / Time No Known Allergies Allergy Verified 09/10/23 09:46 Physical Exam Vitals: Vital Signs Temp Pulse Pulse Resp BP BP BP 09/10/23 07:35 98.2 F 65 14 178/81 09/10/23 03:11 97.8 F 65 20 158/84 09/10/23 02:46 61 16 141/78 09/10/23 02:17 64 18 138/69 09/10/23 00:00 75 19 196/96 09/09/23 21:31 97.9 F 74 18 178/91 Pulse Ox 09/10/23 07:35 97 09/10/23 03:11 99 09/10/23 02:46 97 09/10/23 02:17 96 09/10/23 00:00 96 09/09/23 21:31 94 L Intake and Output 09/09/23 09/10/23 09/10/23 22:59 06:59 14:59 Output Total 300 Balance -300 Output: Urine 300 Other: Weight 78.471 kg Results 09/09/23 21:41 09/09/23 21:41 Cardiac Enzymes 07/21/24 07/21/24 Range/Units 21:41 21:41 AST 35 (17-59) U/L Troponin I <0.012 (0.000-0.034) ng/mL Coagulation 09/09/23 Range/Units 21:41 PT 10.5 (10.0-12.5) sec APTT 22.1 (22.0-30.0) sec CBC 09/09/23 Range/Units 21:41 WBC 7.9 (3.8-10.6) k/uL RBC 4.51 (4.30-5.90) m/uL Hgb 11.1 L (13.0-17.5) gm/dL Hct 36.6 L (39.0-53.0) % Plt Count 313 (150-450) k/uL Comprehensive Metabolic Panel 09/09/23 Range/Units 21:41 Sodium 138 (137-145) mmol/L Potassium 4.8 (3.5-5.1) mmol/L Chloride 110 H (98-107) mmol/L Carbon Dioxide 17 L (22-30) mmol/L BUN 18 (9-20) mg/dL Creatinine 1.41 H (0.66-1.25) mg/dL Glucose 100 H (74-99) mg/dL Calcium 9.3 (8.4-10.2) mg/dL AST 35 (17-59) U/L ALT 18 (4-49) U/L Alkaline Phosphatase 58 (38-126) U/L Total Protein 7.0 (6.3-8.2) g/dL Albumin 4.5 (3.5-5.0) g/dL Current Medications Generic Name Dose Route Start Last Admin Trade Name Freq PRN Reason Stop Dose Admin Hydrocodone Bitart/Acetaminophen 1 each 09/10/23 07:50 Hydrocodone/Apap 10-325mg 1 Each Tab PO Q6H PRN Pain Cyclobenzaprine HCl 10 mg 09/10/23 07:50 Cyclobenzaprine 10 Mg Tab PO TID PRN Muscle Spasm Hydromorphone HCl 1 mg 09/10/23 00:34 09/10/23 08:29 Hydromorphone 1 Mg/Ml 1 Ml Syringe IVP 1 mg Q3HR PRN Administration Severe Pain (Scale 7 to 10) Sodium Chloride 1,000 mls @ 75 mls/hr 09/10/23 00:45 09/10/23 00:47 Saline 0.9% IV 75 mls/hr .[id number] IVETTE Administration Cefazolin Sodium 2 gm/ Sodium 50 mls @ 100 mls/hr 09/11/23 12:00 Chloride IVPB 09/11/23 12:29 ONCE ONE Protocol Tranexamic Acid 1,000 mg/ 110 mls @ 200 mls/hr 09/11/23 12:00 Sodium Chloride IVPB 09/11/23 12:32 ONCE ONE Protocol Tranexamic Acid 1,000 mg/ 110 mls @ 200 mls/hr 09/11/23 12:00 Sodium Chloride IVPB 09/11/23 12:32 ONCE ONE Protocol Insulin Aspart 0 unit 09/10/23 07:30 09/10/23 05:59 Insulin Aspart (Novolog) 100 Unit/Ml Vial SQ Not Given ACHS IVETTE Protocol Naloxone HCl 0.2 mg 09/10/23 00:34 Naloxone 0.4 Mg/Ml 1 Ml Vial IV Q2M PRN Opioid Reversal Ondansetron HCl 4 mg 09/10/23 00:34 Ondansetron 4 Mg/2 Ml Vial IVP Q8HR PRN Nausea And Vomiting Pantoprazole Sodium 40 mg 09/10/23 09:00 09/10/23 08:30 Pantoprazole 40 Mg/10 Ml Vial IV 40 mg DAILY IVETTE Administration Intake and Output 09/09/23 09/10/23 09/10/23 22:59 06:59 14:59 Output Total 300 Balance -300 Output: Urine 300 Other: Weight 78.471 kg 09/09/23 21:41 09/09/23 21:41
[2023-09-10 16:46] LABS: Glucose,Whole Blood 100 mg/dL (70-110)
[2023-09-10 20:03] LABS: Glucose,Whole Blood 110 mg/dL (70-110)
[2023-09-10] MEDS: traZODone HCL 100 MG TAB PO SCH (20:15)
[2023-09-10] MEDS: ATORVASTATIN 20 MG TAB PO SCH (20:15)
[2023-09-11 06:06] LABS: Glucose,Whole Blood 106 mg/dL (70-110)
[2023-09-11] MEDS: TAMSULOSIN 0.4 MG CAP.ER.24H PO SCH (08:10)
[2023-09-11] MEDS: FLUoxetine HCL 20 MG CAP PO SCH (08:11)
[2023-09-11] MEDS: CHOLECALCIFEROL 125 MCG (5000 IU) TABLET PO SCH (08:13)
[2023-09-11 11:22] LABS: Glucose,Whole Blood 121 mg/dL (70-110)
--- NOTE | 2023-09-11 11:54 | P.PN ---
Subjective Progress Note Date: 09/11/23 Reason for Consult (text): Cardiac clearance History of present illness: This is a 63-year-old male patient of Dr. Shaikh with past medical history of paroxysmal atrial fibrillation on Xarelto, PAD status post prior right intervention for right acute limb ischemia, venous insufficiency, polycythemia, tobacco use and dependence, prior alcohol abuse, hypertension, diabetes mellitus type 2, cardiomyopathy with previous EF of 35%. Patient was last seen in the office on 05/24/2023 at which time and Xarelto was increased to 20 mg for atrial fibrillation versus PAD dosing. Patient recently underwent left SFA with improvement of the lower extremity calf pain. Patient presented to the emergency center for trip and fall with severe right hip pain, inability to ambulate and was found to have a right femoral neck fracture. Patient has been admitted to the orthopedic service with plan for right hip hemiarthroplasty tomorrow. Blood pressure 178/81, heart rate 65, pulse ox 97% on 2 L nasal cannula. He denies having any chest pain or shortness of breath. EKG: Sinus rhythm, right bundle branch block Chest x-ray: No acute process. CT of the brain, cervical spine revealed no acute fracture or dislocation of the cervical spine and no acute intracranial hemorrhage or midline shift. Pelvic CT: Nondisplaced right femoral neck fracture. Bilateral fat-containing inguinal hernias. Laboratory studies: WBC 7.9, hemoglobin 11.1. BUN 18 creatinine 1.41. Troponin negative x 1. proBNP 3070 Home cardiac medications according to office note: Aspirin 81 mg daily, atorvastatin 20 mg at bedtime, Plavix 75 mg daily, losartan 50 mg daily, Lopressor 25 mg twice daily, Xarelto 20 mg with supper. 09/10 Patient is seen and examined. He is scheduled for surgery today for the right femoral neck fracture. Echocardiogram has been reviewed with the patient. Blood pressure 155/70, heart rate 55, pulse ox 95% on room air. Echocardiogram reveals EF 60%. Physical examination: Gen: This is a 63-year-old male patient in no acute distress. VS: reviewed HEENT: Head is atraumatic, normocephalic. Pupils equal, round. Sclerae is anicteric. NECK: Supple. No JVD. LUNGS: Clear to auscultation. No wheezes or rhonchi. No intercostal retractions. HEART: Regular rate and rhythm. No murmur. ABDOMEN: Soft No tenderness. EXTREMITIES: No pedal edema. No calf tenderness. NEUROLOGICAL: Patient is awake, alert and oriented x3. Assessment: Right femoral neck fracture Acute kidney injury Paroxysmal atrial fibrillation currently in sinus rhythm Hypertension Diabetes mellitus type 2 Chronic systolic heart failure Cardiomyopathy with a EF of 35% unknown if ischemic or nonischemic PAD with prior SFA occlusion and stenting and eventual bypass in 2019. Nonheal ing ulcer underwent venous ablation and now being evaluated for possible phlebectomy patient has not had a previous cart Polycythemia Tobacco use and dependence Prior alcohol abuse Plan: Continue patient's home cardiac medications except hold aspirin, Plavix, Xarelto for surgery and resume once cleared by orthopedics. Patient is at increased risk for complications from anesthesia during the brandin operative time due to history of CHF, atrial fibrillation. However, there are no absolute contraindications for surgical intervention. Further recommendations to follow based upon clinical course Nurse practitioner note has been reviewed, I agree with documented findings and plan of care. Patient was seen and examined. Objective - Vital Signs Vital signs: Vital Signs Temp 98.2 F 09/11/23 07:03 Pulse 55 L 09/11/23 07:03 Resp 18 09/11/23 07:03 BP 155/70 09/11/23 07:03 Pulse Ox 90 L 09/11/23 00:51 FiO2 Intake & Output 09/10/23 09/11/23 09/11/23 18:59 06:59 18:59 Output Total 760 700 500 Balance -760 -700 -500 Weight 78.471 kg Output: Urine 760 700 500 Other: Voiding Method Urinal Urinal Urinal # Voids 0 # Bowel Movements 0 - Labs CBC & Chem 7: 09/09/23 21:41 09/09/23 21:41
[2023-09-11 13:50] LABS: Glucose,Whole Blood 99 mg/dL (70-110)
[2023-09-11] MEDS: ONDANSETRON 4 MG/2 ML VIAL IVP PRN (14:15)
[2023-09-11] MEDS: IV FLUID CONTINUATION 1,000 ML IV ONE (14:48)
--- NOTE | 2023-09-11 15:12 | P.PN ---
Subjective Progress Note Date: 09/11/23 Hospital course: Patient is a very pleasant 63-year-old male with a past medical history of paroxysmal atrial fibrillation on anticoagulation with Xarelto, PAD status post stenting to bilateral lower extremities and right vein graft, history of DVT, hypertension, hyperlipidemia, and [id number]-aoxjoeryw diabetes mellitus type 2. He presented to the emergency department on 09/10/2023 status post mechanical slip and fall resulting in acute minimally displaced oblique fracture through the right femoral neck of the right hip. He was admitted under orthopedic s urgery team and we were consulted for medical clearance and medical management throughout hospitalization. Physical exam: Patient was seen and fully evaluated at bedside this morning. He reports mild to moderate pain in right hip that is worse with any movement. He reports currently pain is mild to moderate but tolerable at rest. He denies having any other complaints at this time. Vital signs reviewed and stable. General: Nontoxic, no distress and appears stated age. Derm: Skin warm and dry, normal coloration for ethnicity. Head: Atraumatic, normocephalic and symmetric. Eyes: EOMs intact, no lid lag, and anicteric sclera Mouth: no lip lesions, mucus membranes moist Cardiovascular: Irregularly irregular, no murmur, positive posterior tibial pulses bilaterally, and cap refill < 2 seconds. Lungs: Respirations even, regular, and unlabored on room air. Lungs CTA bilaterally, no rhonchi, no rales, no wheezing, and no accessory muscle usage. Abdominal: soft, nontender to palpation, no guarding, no appreciable organomegaly Ext: No gross muscle atrophy, no edema, no contractures. Decreased sensation but reported at baseline, movement and sensation intact equally. Neuro: Speech clear, face symmetrical and CN II-XII grossly intact with no noted focal neuro deficits Psych: Alert and oriented to person, place, time, and situation. Appropriate and pleasant affect. Assessment and Plan of Care: Displaced oblique fracture through the right femoral neck of right hip -Management per primary admitting orthopedic surgery team including DVT prophylaxis, pain management, weightbearing, and PT/OT. -Patient is scheduled to undergo right hip hemiarthroplasty later today with Dr. Amaya. Paroxysmal atrial fibrillation History of DVT Peripheral arterial disease status post stenting to bilateral lower extremities Peripheral vascular disease status post vein graft of right leg Hypertension Hyperlipidemia -Hold aspirin, Plavix, and Xarelto pending clearance by primary admitting orthopedic surgery team to resume. -Patient to continue daily medication regimen with atorvastatin 20 mg nightly, losartan 50 mg daily, and metoprolol 25 mg daily. Type II suq-yfqscyy-vikznzsif diabetes mellitus -Hold Glucophage and place patient on glycemic protocol with NovoLog sliding scale to maintain tight glycemic control throughout hospitalization. BPH -Continue Flomax 0.8 mg daily. Anxiety -Continue trazodone 100 mg nightly. Data and imaging reviewed: Reviewed preoperative EKG showing atrial fibrillation with a controlled ventricular rate of 75 bpm. Echocardiogram completed and reviewed revealing a preserved EF of 60% with no significant valvular or structural abnormalities reported. Vital signs reviewed. Blood pressure 155/70, heart rate 55, respiratory rate 18, temp 98.2 F, and SpO2 of 95% on room air. Thank you for allowing us to participate in the care of this pleasant patient. Do not hesitate to contact us with questions. Someone can be reached from the [facility] hospitalist group all hours of the day at [phone] or via perfect serve. Patient was seen independently by Nurse Pracitioner. This document was prepared using [employer] dictation software. Please allow for errors in film casting operator, while rare they do occur. Objective - Vital Signs Vital signs: Vital Signs Temp 98.2 F 09/11/23 07:03 Pulse 55 L 09/11/23 07:03 Resp 18 09/11/23 07:03 BP 155/70 09/11/23 07:03 Pulse Ox 90 L 09/11/23 00:51 FiO2 Intake & Output 09/10/23 09/11/23 09/11/23 18:59 06:59 18:59 Output Total 760 700 Balance -760 -700 Weight 78.471 kg Output: Urine 760 700 Other: Voiding Method Urinal Urinal Urinal # Voids 0 # Bowel Movements 0 - Labs CBC & Chem 7: 09/09/23 21:41 09/09/23 21:41
[2023-09-11] MEDS ORDERED: LIDOCAINE 1% INJ 10MG/ML (20 ML MDV) ONE (15:17)
[2023-09-11] MEDS ORDERED: GLYCOPYRROLATE 0.2 MG/ML 2 ML VIAL ONE (15:17)
[2023-09-11] MEDS ORDERED: NEOSTIGMINE 1 MG/ML 10 ML VIAL ONE (15:17)
[2023-09-11] MEDS ORDERED: ROCURONIUM 10 MG/ML (5 ML VIAL) IV ONE (15:17)
[2023-09-11] MEDS ORDERED: SUCCINYLCHOLINE CHLORIDE 200 MG/10 ML VIAL IV ONE (15:17)
[2023-09-11] MEDS ORDERED: fentaNYL (PF) 50 MCG/ML 2 ML AMP ONE (15:17)
[2023-09-11] MEDS ORDERED: PROPOFOL 10 MG/ML 20 ML VIAL IV ONE (15:17)
[2023-09-11] MEDS ORDERED: HYDROmorphone (PF) 1 MG/ML ONE (15:17)
[2023-09-11] MEDS ORDERED: ePHEDrine 50 MG/ML 1 ML VIAL ONE (15:17)
[2023-09-11] MEDS ORDERED: WATER FOR INJECTION, STERILE 10 ML VIAL IV ONE (15:17)
[2023-09-11] MEDS ORDERED: MIDAZOLAM 2 MG/2 ML VIAL ONE (15:17)
[2023-09-11] MEDS ORDERED: KETAMINE HCL IN 0.9 % NACL 50 MG/5 ML SYRINGE ONE (15:17)
--- NOTE | 2023-09-11 15:20 | P.PN ---
Progress Note - Text Progress Note Date: 09/11/23 The patient was examined and his condition was discussed with him. Surgical options regarding his right femoral neck fracture were discussed to include closed reduction and pinning, hemiarthroplasty, and total hip. He opted to proceed with a right total hip arthroplasty utilizing an anterior approach. Risks and benefits were discussed at length in layman's terms.
[2023-09-11] MEDS: SODIUM CHLORIDE 0.9% 100 ML with ceFAZolin 2,000 MG IV ONE (15:22)
[2023-09-11] MEDS ORDERED: NALOXONE 0.4 MG/ML 1 ML VIAL IV PRN (15:40)
[2023-09-11] MEDS: ceFAZolin 1,000 MG in SODIUM CHLORIDE 0.9% 1,000 ML IRRIGATION ONE (15:50)
[2023-09-11] MEDS: LACTATED RINGERS 1,000 ML IV ONE (16:32)
--- NOTE | 2023-09-11 17:40 | P.OP ---
Date of Procedure: 09/11/23 Preoperative Diagnosis: Displaced right subcapital femoral neck fracture Postoperative Diagnosis: Same Procedure(s) Performed: Right total hip arthroplastypress-fitanterior approach Implants: Depuy Corail size 12 collared 135 degree press-fit femoral stem, 36+1.5 cobalt chrome femoral head, 56 mm Priddy acetabular shell with neutral polyethylene liner. Anesthesia: GETA Surgeon: Angus Pineda Inside Sales Advertising Executive #1: Kong Ramos Estimated Blood Loss (ml): 350 Pathology: none sent Condition: stable Disposition: PACU Indications for Procedure: The patient is a 63-year-old male who presents after falling injuring his right hip. Upon evaluation he was noted to have a displaced subcapital right femoral neck fracture. A discussion of the risks and benefits of operative intervention was made with the patient. Operative options to include open reduction and internal fixation versus hemiarthroplasty versus total hip arthroplasty were discussed. He opted to proceed with total hip arthroplasty. Specific risks of the procedure to include infection, neurovascular injury, development of blood clots, fracture, leg length discrepancy, possible instability, possible component loosening/failure and possible need for subsequent procedures was discussed. Informed consent was obtained. Operative Findings: As below Description of Procedure: The patient was brought to the operating room, and after induction of spinal anesthesia was placed supine on the Makenzie table. Positioning was checked with fluoroscopy. The right hip was then prepped and draped in a normal fashion. A 12 cm incision was then made starting 2 fingerbreadths distal and 3 finger breaths posterior to the ASIS in line with the proximal femur. The skin was incised sharply. Subcutaneous tissues were divided sharply. Electrocautery was used for hemostasis. The fascia was split in line with skin incision. The interval between the sartorius and tensor fascia irving was then bluntly developed. The posterior fascia was opened with electrocautery. The lateral circumflex vessels were identified and cauterized prior to sectioning. A retractor was placed along the superior femoral neck as well as the anterior acetabular rim. A wide capsulotomy was performed. There is a large hemarthrosis. A subcapital femoral neck fracture was noted. A lower neck cut was then made at a 45 angle to the shaft approximately 1 1/2 cm above the level of the lesser trochanter. The head was extracted. Attention was then paid towards preparing the acetabulum. Anterior and posterior retractors were placed. The remaining capsular labral tissue sharply debrided clearly defining the acetabular margins. I began reaming with a 51 mm reamer taking care to initially medialize then reaming at 45 of abduction and 20 of anteversion. Sequential reaming is performed up to 55 mm. A trial 56 mm acetabular shell was inserted in the same orientation and was fully seated. There was good rim fit and stability. Positioning was checked with fluoroscopy. The final 56 mm acetabular shell was inserted again at 45 of abduction and 20 of anteversion. This was fully seated. There was good rim fit and stability. Again fluoroscopy was used to check the adequacy of placement. A neutral polyethylene liner was gently impacted. Care was taken to avoid any soft tissue interposition. Pulsatile lavage was utilized. Attention was then paid towards preparing the proximal femur. The central region was cleared of soft tissue. A canal finder was used to find the femoral canal. Sequential broaching was performed up to size 12 taking care to lateralize proximally. A calcar mill was used to fashion the medial calcar. There was good rotational stability. A standard neck along with a 36 mm +1.5 head was placed. The hip was gently reduced. Fluoroscopy was used to check the adequacy of positioning along with leg lengths. I felt both were good. The hip was gently dislocated. The trial components were removed. The final size 12/135 degree collared standard press- fit femoral stem was inserted parallel to the posterior cortex. This was fully seated and there was good rotational stability. A 36 mm +1.5 head was placed. This was gently impacted. The hip was then gently reduced. Final fluoroscopic view showed adequate placement implant along with [employer]ist of leg length. Stability was checked with 80 of external rotation and 60 of extension of the right hip. The wound was irrigated with sterile lavage. The fascia was closed with running 0 Vicryl suture. There was minimal drainage therefore a deep drain was not placed. The second dose of IV TXA was given. The subcutaneous tissues were reapproximated interrupted 2-0 Vicryl sutures. The skin was reapproximated with 3-0 subcuticular strata fix suture. Skin tape and adhesive was applied. A sterile dressing was applied. The patient was then awoken from sedation and transferred to recovery room in good condition. Blood loss was estimated at 350 mL. No complications were incurred. Sponge and needle counts were correct at the end of the case. Dayo PICKERING assisted during the major components is case to include exposure, bone resection, implantation, and closure.
--- NOTE | 2023-09-11 17:44 | XR ---
Fluoroscopy History: RT ANTERIOR HIP FL TIME: 36.4 DAP: 1.9494 RIGHT ANTERIOR HIP
--- NOTE | 2023-09-11 17:55 | XR ---
Fluoroscopy History: Status post hip surgery, assess surgical alignment Status post hip surgery, assess surgical alignment
[2023-09-11 18:27] LABS: Glucose,Whole Blood 130 mg/dL (70-110)
[2023-09-11] MEDS: TRANEXAMIC ACID 1,000 MG in SODIUM CHLORIDE 0.9% 100 ML IVPB ONE ×2 (19:32→19:33)
--- NOTE | 2023-09-11 20:29 | FL ---
EXAMINATION TYPE: FL guidance operating room EXAMINATION TYPE: FL guidance operating room Intraoperative/procedural fluoroscopic services were pro vided. Total fluoroscopy time is 36.4 seconds with a total of 6 submitted images to PACS. Please see the operative/procedural note for further details. DAP: 1.9494 Gycm2
[2023-09-11 20:33] LABS: Glucose,Whole Blood 131 mg/dL (70-110)
[2023-09-11] MEDS: SENNOSIDES-DOCUSATE SODIUM 1 EACH TAB PO SCH (21:41)
[2023-09-12 06:10] LABS: Glucose,Whole Blood 131 mg/dL (70-110)
[2023-09-12] MEDS: PANTOPRAZOLE 40 MG TABLET PO SCH (06:57)
[2023-09-12] MEDS: CLOPIDOGREL 75 MG TAB PO SCH (08:22)
[2023-09-12] MEDS: RIVAROXABAN 20 MG TAB PO SCH (08:22)
[2023-09-12] MEDS: ASPIRIN 325 MG TAB PO SCH (08:22)
--- NOTE | 2023-09-12 08:49 | P.PN ---
Subjective Progress Note Date: 09/12/23 Principal diagnosis: s/p direct anterior right total hip arthroplasty, fall resulting in right femoral neck fracture Patient evaluated at bedside, he is resting comfortably. He is eager to get up with physical therapy. He has been urinating with no issues. His pain is well-controlled. He denies any chest pain or shortness of breath at this time. Objective - Vital Signs Vital signs: Vital Signs Temp 98.4 F 09/12/23 07:08 Pulse 61 09/12/23 07:08 Resp 17 09/12/23 07:08 BP 114/58 09/12/23 07:08 Pulse Ox 94 L 09/12/23 08:40 FiO2 Intake & Output 09/11/23 09/12/23 09/12/23 18:59 06:59 18:59 Intake Total 1601 Output Total 1260 1029 Balance 341 -1029 Intake: IV 1601 Output: Urine 910 1020 Straight 1020 Post Void Residual 9 Estimated Blood Loss 350 Other: Voiding Method Urinal Urinal # Voids 1 - Exam Right lower extremity: Postop dressing is in good position condition. There is minimal soft tissue swelling and ecchymosis surrounding the medial and lateral aspects of the incision. Calf is soft, no tenderness with palpation. Plantar flexion, dorsiflexion, EHL, FHL are intact. Sensory exam to light touch throughout the extremity is intact, dorsal pedis pulses 2+. - Labs CBC & Chem 7: 09/09/23 21:41 09/09/23 21:41 Labs: Abnormal Lab Results - Last 24 Hours (Table) 09/11/23 09/11/23 09/11/23 Range/Units 11:20 18:26 20:31 POC Glucose (mg/dL) 121 H 130 H 131 H (70-110) mg/dL 09/12/23 Range/Units 06:09 POC Glucose (mg/dL) 131 H (70-110) mg/dL Assessment and Plan Assessment: Postoperative day #1 status post direct anterior right total hip arthroplasty Recent fall resulting in right femoral neck fracture Other medical comorbidities Plan: Pain control, continue with current medications DVT prophylaxis, okay to restart all home anticoagulants PT/OT, weight-bear as tolerated with walker Courage incentive spirometer Monitor surgical dressing Medical recommendations Discharge planning: Discussed with patient discharge options, would like to discharge home with home health care pending how he does with physical therapy, will continue to monitor Time with Patient: Less than 30
[2023-09-12 10:40] LABS: Basophils # (A) 0.01 X 10*3/uL (0.00-0.10); Basophils % (A) 0.1 %; Eosinophils # (A) 0.09 X 10*3/uL (0.04-0.35); Eosinophils % (A) 1.2 %; HCT 29.5 % (39.6-50.0); HGB 9.1 g/dL (13.0-17.0); Lymphocytes # (A) 0.71 X 10*3/uL (0.90-5.00); Lymphocytes % (A) 9.6 %; MCH 24.7 pg (27.0-32.0); MCHC 30.8 g/dL (32.0-37.0); MCV 79.9 FL (80.0-97.0); Mean Platelet Volume 10.7 FL (9.5-12.2); Monocytes # (A) 0.67 X 10*3/uL (0.20-1.00); Monocytes % (A) 9.1 %; NRBC Per 100 WBC 0 X 10*3/uL (0.00-0.01); Neutrophils # (A) 5.88 X 10*3/uL (1.80-7.70); Neutrophils % (A) 79.7 %; Platelet Count 216 X 10*3/uL (140-440); RBC 3.69 X 10*6/uL (4.40-5.60); RDW 21.3 % (11.5-14.5); WBC 7.38 X 10*3/uL (4.50-10.00)
[2023-09-12 10:58] LABS: BUN/Creat Ratio 8.22 Ratio (12.00-20.00); Blood Urea Nitrogen 7.4 mg/dL (9.0-27.0); Chloride 104 mmol/L (96-109); Glucose 123 mg/dL (70-110); Magnesium 1.9 mg/dL (1.5-2.4); Potassium 4.3 mmol/L (3.5-5.5); Sodium 134 mmol/L (135-145)
[2023-09-12 10:59] LABS: Calcium 7.8 mg/dL (8.7-10.3)
[2023-09-12 11:25] LABS: Glucose,Whole Blood 123 mg/dL (70-110)
--- NOTE | 2023-09-12 11:56 | P.PN ---
Subjective Progress Note Date: 09/12/23 Reason for Consult (text): Cardiac clearance History of present illness: This is a 63-year-old male patient of Dr. Shaikh with past medical history of paroxysmal atrial fibrillation on Xarelto, PAD status post prior right intervention for right acute limb ischemia, venous insufficiency, polycythemia, tobacco use and dependence, prior alcohol abuse, hypertension, diabetes mellitus type 2, cardiomyopathy with previous EF of 35%. Patient was last seen in the office on 05/24/2023 at which time and Xarelto was increased to 20 mg for atrial fibrillation versus PAD dosing. Patient recently underwent left SFA with improvement of the lower extremity calf pain. Patient presented to the emergency center for trip and fall with severe right hip pain, inability to ambulate and was found to have a right femoral neck fracture. Patient has been admitted to the orthopedic service with plan for right hip hemiarthroplasty tomorrow. Blood pressure 178/81, heart rate 65, pulse ox 97% on 2 L nasal cannula. He denies having any chest pain or shortness of breath. EKG: Sinus rhythm, right bundle branch block Chest x-ray: No acute process. CT of the brain, cervical spine revealed no acute fracture or dislocation of the cervical spine and no acute intracranial hemorrhage or midline shift. Pelvic CT: Nondisplaced right femoral neck fracture. Bilateral fat-containing inguinal hernias. Laboratory studies: WBC 7.9, hemoglobin 11.1. BUN 18 creatinine 1.41. Troponin negative x 1. proBNP 3070 Home cardiac medications according to office note: Aspirin 81 mg daily, atorvastatin 20 mg at bedtime, Plavix 75 mg daily, losartan 50 mg daily, Lopressor 25 mg twice daily, Xarelto 20 mg with supper. 09/10 Patient is seen and examined. He is scheduled for surgery today for the right femoral neck fracture. Echocardiogram has been reviewed with the patient. Blood pressure 155/70, heart rate 55, pulse ox 95% on room air. Echocardiogram reveals EF 60%. 09/11 Yesterday, patient underwent a right total hip arthroplasty. Patient has been resumed on Xarelto to start tonight. He thinks that he will be discharged home later today. Physical examination: Gen: This is a 63-year-old male patient in no acute distress. VS: reviewed HEENT: Head is atraumatic, normocephalic. Pupils equal, round. Sclerae is anicteric. NECK: Supple. No JVD. LUNGS: Clear to auscultation. No wheezes or rhonchi. No intercostal retractions. HEART: Regular rate and rhythm. No murmur. ABDOMEN: Soft No tenderness. EXTREMITIES: No pedal edema. No calf tenderness. NEUROLOGICAL: Patient is awake, alert and oriented x3. Assessment: Right femoral neck fracture Acute kidney injury Paroxysmal atrial fibrillation currently in sinus rhythm Hypertension Diabetes mellitus type 2 Chronic systolic heart failure Cardiomyopathy with a EF of 35% unknown if ischemic or nonischemic PAD with prior SFA occlusion and stenting and eventual bypass in 2019. Nonhealing ulcer underwent venous ablation and now being evaluated for possible phlebectomy Polycythemia Tobacco use and dependence Prior alcohol abuse Plan: Continue patient's home cardiac medications Patient has been resumed on Xarelto Patient is cleared for discharge from cardiology. Patient will follow-up with Dr. Shaikh in September as already scheduled. Nurse practitioner note has been reviewed, I agree with documented findings and plan of care. Patient was seen and examined. Objective - Vital Signs Vital signs: Vital Signs Temp 98.4 F 09/12/23 07:08 Pulse 61 09/12/23 07:08 Resp 17 09/12/23 07:08 BP 114/58 09/12/23 07:08 Pulse Ox 94 L 09/12/23 08:40 FiO2 Intake & Output 09/11/23 09/12/23 09/12/23 18:59 06:59 18:59 Intake Total 1601 Output Total 1260 1029 Balance 341 -1029 Intake: IV 1601 Output: Urine 910 1020 Straight 1020 Post Void Residual 9 Estimated Blood Loss 350 Other: Voiding Method Urinal Urinal # Voids 1 - Labs CBC & Chem 7: 09/12/23 07:06 09/12/23 07:06 Labs: Abnormal Lab Results - Last 24 Hours (Table) 09/11/23 09/11/23 09/11/23 Range/Units 11:20 18:26 20:31 RBC (4.40-5.60) X 10*6/uL Hgb (13.0-17.0) g/dL Hct (39.6-50.0) % MCV (80.0-97.0) FL MCH (27.0-32.0) pg MCHC (32.0-37.0) g/dL RDW (11.5-14.5) % Lymphocytes # (0.90-5.00) X 10*3/uL Sodium (135-145) mmol/L BUN (9.0-27.0) mg/dL BUN/Creatinine Ratio (12.00-20.00) Ratio Glucose (70-110) mg/dL POC Glucose (mg/dL) 121 H 130 H 131 H (70-110) mg/dL Calcium (8.7-10.3) mg/dL 09/12/23 09/12/23 09/12/23 Range/Units 06:09 07:06 07:06 RBC 3.69 L (4.40-5.60) X 10*6/uL Hgb 9.1 L (13.0-17.0) g/dL Hct 29.5 L (39.6-50.0) % MCV 79.9 L (80.0-97.0) FL MCH 24.7 L (27.0-32.0) pg MCHC 30.8 L (32.0-37.0) g/dL RDW 21.3 H (11.5-14.5) % Lymphocytes # 0.71 L (0.90-5.00) X 10*3/uL Sodium 134 L (135-145) mmol/L BUN 7.4 L (9.0-27.0) mg/dL BUN/Creatinine Ratio 8.22 L (12.00-20.00) Ratio Glucose 123 H (70-110) mg/dL POC Glucose (mg/dL) 131 H (70-110) mg/dL Calcium 7.8 L (8.7-10.3) mg/dL
[2023-09-12] MEDS: NICOTINE 21MG/24HR PATCH TRANSDERM SCH (12:01)
[2023-09-12] MEDS: HYDROmorphone 0.5 MG/0.5 ML SYRINGE IVP PRN (12:01)
[2023-09-12 16:38] LABS: Glucose,Whole Blood 125 mg/dL (70-110)
--- NOTE | 2023-09-12 17:07 | P.PN ---
Subjective Progress Note Date: 09/12/23 Hospital course: Patient is a very pleasant 63-year-old male with a past medical history of paroxysmal atrial fibrillation on anticoagulation with Xarelto, PAD status post stenting to bilateral lower extremities and right vein graft, history of DVT, hypertension, hyperlipidemia, and equ-qmrzdai-lwlldgvlf diabetes mellitus type 2. He presented to the emergency department on 09/10/2023 status post mechanical slip and fall resulting in acute minimally displaced oblique fracture through the right femoral neck of the right hip. He was admitted under orthopedic surgery team and we were consulted for medical clearance and medical management throughout hospitalization. Reviewed preoperative EKG showing atrial fibrillation with a controlled ventricular rate of 75 bpm. Echocardiogram completed and reviewed revealing a preserved EF of 60% with no significant va lvular or structural abnormalities reported. Physical exam: Patient was seen and fully evaluated at bedside this morning. He reports mild to moderate pain in right hip that is worse with any movement. He reports currently pain is mild to moderate but tolerable at rest. He denies having any other complaints at this time. Vital signs reviewed and stable. General: Nontoxic, no distress and appears stated age. Derm: Skin warm and dry, normal coloration for ethnicity. Head: Atraumatic, normocephalic and symmetric. Eyes: EOMs intact, no lid lag, and anicteric sclera Mouth: no lip lesions, mucus membranes moist Cardiovascular: Irregularly irregular, no murmur, positive posterior tibial pulses bilaterally, and cap refill < 2 seconds. Lungs: Respirations even, regular, and unlabored on room air. Lungs CTA bilaterally, no rhonchi, no rales, no wheezing, and no accessory muscle usage. Abdominal: soft, nontender to palpation, no guarding, no appreciable organomegaly Ext: No gross muscle atrophy, no edema, no contractures. Decreased sensation but reported at baseline, movement and sensation intact equally. Neuro: Speech clear, face symmetrical and CN II-XII grossly intact with no noted focal neuro deficits Psych: Alert and oriented to person, place, time, and situation. Appropriate and pleasant affect. Assessment and Plan of Care: Acute postoperative blood loss anemia -Stable and expected finding with preoperative hemoglobin of 11.1 and postoperative hemoglobin of 9.1. No need for transfusion or further interventions at this time. We will continue to monitor and transfuse if needed for hemoglobin less than 7. Displaced oblique fracture through the right femoral neck of right hip Status post right total hip arthroplasty -Management per primary admitting orthopedic surgery team including DVT prophylaxis, pain management, weightbearing, and PT/OT. -DVT prophylaxis currently with aspirin 325 mg daily. Paroxysmal atrial fibrillation History of DVT Peripheral arterial disease status post stenting to bilateral lower extremities Peripheral vascular disease status post vein graft of right leg Hypertension Hyperlipidemia -Hold aspirin, Plavix, and Xarelto pending clearance by primary admitting orthopedic surgery team to resume. -Patient to continue daily medication regimen with atorvastatin 20 mg nightly, losartan 50 mg daily, and metoprolol 25 mg daily. Type II evl-qpncuio-enzimlcnh diabetes mellitus -Hold Glucophage and place patient on glycemic protocol with NovoLog sliding scale to maintain tight glycemic control throughout hospitalization. BPH -Continue Flomax 0.8 mg daily. Anxiety -Continue trazodone 100 mg nightly. Data and imaging reviewed: Postoperative labs reviewed. CBC showing acute postoperative blood loss anemia with hemoglobin of 9.1. BMP showing mild hyponatremia with sodium of 134 otherwise normal findings. Blood glucose 123. Magnesium 1.9. Vital signs reviewed. Blood pressure 114/58, heart rate 61, respiratory rate 17, temp 98.4 F, and SpO2 of 96% on room air. Thank you for allowing us to participate in the care of this pleasant patient. Do not hesitate to contact us with questions. Someone can be reached from the [facility] hospitalist group all hours of the day at [phone] or via perfect serve. Patient was seen independently by Nurse Pracitioner. This document was prepared using [employer] dictation software. Please allow for errors in review nurse, while rare they do occur. . Objective - Vital Signs Vital signs: Vital Signs Temp 98.4 F 09/12/23 07:08 Pulse 61 09/12/23 07:08 Resp 17 09/12/23 07:08 BP 114/58 09/12/23 07:08 Pulse Ox 94 L 09/12/23 08:40 FiO2 Intake & Output 09/11/23 09/12/23 09/12/23 18:59 06:59 18:59 Intake Total 1601 Output Total 1260 1029 Balance 341 -1029 Intake: IV 1601 Output: Urine 910 1020 Straight 1020 Post Void Residual 9 Estimated Blood Loss 350 Other: Voiding Method Urinal Urinal # Voids 1 - Labs CBC & Chem 7: 09/12/23 07:06 07/24/24 07:06 Labs: Abnormal Lab Results - Last 24 Hours (Table) 09/11/23 09/11/23 09/11/23 Range/Units 11:20 18:26 20:31 POC Glucose (mg/dL) 121 H 130 H 131 H (70-110) mg/dL 09/12/23 Range/Units 06:09 POC Glucose (mg/dL) 131 H (70-110) mg/dL
[2023-09-12] MEDS: FERROUS SULFATE 325 MG TAB PO SCH (17:46)
[2023-09-12] MEDS: CYCLOBENZAPRINE 10 MG TAB PO PRN (17:46)
[2023-09-12 20:49] LABS: Glucose,Whole Blood 130 mg/dL (70-110)
[2023-09-13 06:17] LABS: Glucose,Whole Blood 131 mg/dL (70-110)
[2023-09-13 07:00] VITALS: BP 141/71; PULSE 61; RESP 18; TEMP 98.7
[2023-09-13 08:38] LABS: ALT 13 U/L (10-49); AST 21 U/L (14-35); Albumin 3.2 g/dL (3.8-4.9); Albumin/Globulin Ratio 1.78 Ratio (1.60-3.17); Alkaline Phosphatase 50 U/L (41-126); BUN/Creat Ratio 8.38 Ratio (12.00-20.00); Blood Urea Nitrogen 6.7 mg/dL (9.0-27.0); Calcium 8.2 mg/dL (8.7-10.3); Carbon Dioxide 21.2 mmol/L (21.6-31.8); Chloride 103 mmol/L (96-109); Globulin 1.8 g/dL (1.6-3.3); Glucose 110 mg/dL (70-110); Magnesium 1.7 mg/dL (1.5-2.4); Potassium 4.2 mmol/L (3.5-5.5); Sodium 134 mmol/L (135-145); Total Bilirubin 0.3 mg/dL (0.3-1.2)
[2023-09-13 08:42] LABS: HGB 8.8 g/dL (13.0-17.0); MCH 24.2 pg (27.0-32.0); MCHC 30.3 g/dL (32.0-37.0); MCV 79.9 FL (80.0-97.0); Mean Platelet Volume 10.7 FL (9.5-12.2); NRBC Per 100 WBC 0 X 10*3/uL (0.00-0.01); Platelet Count 212 X 10*3/uL (140-440); RBC 3.63 X 10*6/uL (4.40-5.60); RDW 21.3 % (11.5-14.5); WBC 8.19 X 10*3/uL (4.50-10.00)
--- NOTE | 2023-09-13 09:32 | P.PN ---
Subjective Progress Note Date: 09/13/23 Reason for Consult (text): Cardiac clearance History of present illness: This is a 63-year-old male patient of Dr. Shaikh with past medical history of paroxysmal atrial fibrillation on Xarelto, PAD status post prior right intervention for right acute limb ischemia, venous insufficiency, polycythemia, tobacco use and dependence, prior alcohol abuse, hypertension, diabetes mellitus type 2, cardiomyopathy with previous EF of 35%. Patient was last seen in the office on 05/24/2023 at which time and Xarelto was increased to 20 mg for atrial fibrillation versus PAD dosing. Patient recently underwent left SFA with improvement of the lower extremity calf pain. Patient presented to the emergency center for trip and fall with severe right hip pain, inability to ambulate and was found to have a right femoral neck fracture. Patient has been admitted to the orthopedic service with plan for right hip hemiarthroplasty tomorrow. Blood pressure 178/81, heart rate 65, pulse ox 97% on 2 L nasal cannula. He denies having any chest pain or shortness of breath. EKG: Sinus rhythm, right bundle branch block Chest x-ray: No acute process. CT of the brain, cervical spine revealed no acute fracture or dislocation of the cervical spine and no acute intracranial hemorrhage or midline shift. Pelvic CT: Nondisplaced right femoral neck fracture. Bilateral fat-containing inguinal hernias. Laboratory studies: WBC 7.9, hemoglobin 11.1. BUN 18 creatinine 1.41. Troponin negative x 1. proBNP 3070 Home cardiac medications according to office note: Aspirin 81 mg daily, atorvastatin 20 mg at bedtime, Plavix 75 mg daily, losartan 50 mg daily, Lopressor 25 mg twice daily, Xarelto 20 mg with supper. 09/10 Patient is seen and examined. He is scheduled for surgery today for the right femoral neck fracture. Echocardiogram has been reviewed with the patient. Blood pressure 155/70, heart rate 55, pulse ox 95% on room air. Echocardiogram reveals EF 60%. 09/11 Yesterday, patient underwent a right total hip arthroplasty. Patient has been resumed on Xarelto to start tonight. He thinks that he will be discharged home later today. 09/12 Blood pressure 141/71, heart rate 61, pulse ox 93% on room air. Repeat blood work reveals hemoglobin 8.8. Sodium 134, potassium 4.2, BUN 6, creatinine 0.8. Telemetry is sinus rhythm. Physical examination: Gen: This is a 63-year-old male patient in no acute distress. VS: reviewed HEENT: Head is atraumatic, normocephalic. Pupils equal, round. Sclerae is anicteric. NECK: Supple. No JVD. LUNGS: Clear to auscultation. No wheezes or rhonchi. No intercostal retractions. HEART: Regular rate and rhythm. No murmur. ABDOMEN: Soft No tenderness. EXTREMITIES: No pedal edema. No calf tenderness. NEUROLOGICAL: Patient is awake, alert and oriented x3. Assessment: Right femoral neck fracture Acute kidney injury Paroxysmal atrial fibrillation currently in sinus rhythm Hypertension Diabetes mellitus type 2 Chronic systolic heart failure Cardiomyopathy with a EF of 35% unknown if ischemic or nonischemic PAD with prior SFA occlusion and stenting and eventual bypass in 2019. Nonhealing ulcer underwent venous ablation and now being evaluated for possible phlebectomy Polycythemia Tobacco use and dependence Prior alcohol abuse Plan: Continue patient's home cardiac medications Patient has been resumed on Xarelto Discontinue cardiac monitoring Patient is cleared for discharge from cardiology. Patient will follow-up with Dr. Shaikh in September as already scheduled. Nurse practitioner note has been reviewed, I agree with documented findings and plan of care. Patient was seen and examined. Objective - Vital Signs Vital signs: Vital Signs Temp 98.7 F 09/13/23 06:59 Pulse 61 09/13/23 06:59 Resp 18 09/13/23 06:59 BP 141/71 09/13/23 06:59 Pulse Ox 93 L 09/13/23 06:59 FiO2 Intake & Output 09/12/23 09/13/23 09/13/23 18:59 06:59 18:59 Output Total 250 2024 Balance -250 -2024 Output: Urine 2024 Post Void Residual 250 Other: Voiding Method Urinal # Voids 0 - Labs CBC & Chem 7: 09/13/23 05:24 09/13/23 05:24 Labs: Abnormal Lab Results - Last 24 Hours (Table) 09/12/23 09/12/23 09/12/23 Range/Units 07:06 07:06 11:23 RBC 3.69 L (4.40-5.60) X 10*6/uL Hgb 9.1 L (13.0-17.0) g/dL Hct 29.5 L (39.6-50.0) % MCV 79.9 L (80.0-97.0) FL MCH 24.7 L (27.0-32.0) pg MCHC 30.8 L (32.0-37.0) g/dL RDW 21.3 H (11.5-14.5) % Lymphocytes # 0.71 L (0.90-5.00) X 10*3/uL Sodium 134 L (135-145) mmol/L BUN 7.4 L (9.0-27.0) mg/dL BUN/Creatinine Ratio 8.22 L (12.00-20.00) Ratio Glucose 123 H (70-110) mg/dL POC Glucose (mg/dL) 123 H (70-110) mg/dL Calcium 7.8 L (8.7-10.3) mg/dL 09/12/23 09/12/23 09/13/23 Range/Units 16:37 20:48 06:17 RBC (4.40-5.60) X 10*6/uL Hgb (13.0-17.0) g/dL Hct (39.6-50.0) % MCV (80.0-97.0) FL MCH (27.0-32.0) pg MCHC (32.0-37.0) g/dL RDW (11.5-14.5) % Lymphocytes # (0.90-5.00) X 10*3/uL Sodium (135-145) mmol/L BUN (9.0-27.0) mg/dL BUN/Creatinine Ratio (12.00-20.00) Ratio Glucose (70-110) mg/dL POC Glucose (mg/dL) 125 H 130 H 131 H (70-110) mg/dL Calcium (8.7-10.3) mg/dL
--- NOTE | 2023-09-13 09:45 | P.PN ---
Subjective Progress Note Date: 09/13/23 Principal diagnosis: s/p direct anterior right total hip arthroplasty, fall resulting in right femoral neck fracture Patient evaluated at bedside, he is resting comfortably. Patient has done well with physical therapy. He has been urinating with no issues. His pain is well-controlled. He denies any chest pain or shortness of breath at this time. Objective - Vital Signs Vital signs: Vital Signs Temp 98.7 F 09/13/23 06:59 Pulse 61 09/13/23 06:59 Resp 18 09/13/23 06:59 BP 141/71 09/13/23 06:59 Pulse Ox 93 L 09/13/23 06:59 FiO2 Intake & Output 09/12/23 09/13/23 09/13/23 18:59 06:59 18:59 Output Total 250 2024 Balance -250 -2024 Output: Urine 2024 Post Void Residual 250 Other: Voiding Method Urinal Urinal # Voids 0 - Exam Right lower extremity: Postop dressing is in good position condition. There is minimal soft tissue swelling and ecchymosis surrounding the medial and lateral aspects of the incision. Calf is soft, no tenderness with palpation. Plantar flexion, dorsiflexion, EHL, FHL are intact. Sensory exam to light touch throughout the extremity is intact, dorsal pedis pulses 2+. - Labs CBC & Chem 7: 09/13/23 05:24 09/13/23 05:24 Labs: Abnormal Lab Results - Last 24 Hours (Table) 09/12/23 09/12/23 09/12/23 Range/Units 07:06 07:06 11:23 RBC 3.69 L (4.40-5.60) X 10*6/uL Hgb 9.1 L (13.0-17.0) g/dL Hct 29.5 L (39.6-50.0) % MCV 79.9 L (80.0-97.0) FL MCH 24.7 L (27.0-32.0) pg MCHC 30.8 L (32.0-37.0) g/dL RDW 21.3 H (11.5-14.5) % Lymphocytes # 0.71 L (0.90-5.00) X 10*3/uL Sodium 134 L (135-145) mmol/L Carbon Dioxide (21.6-31.8) mmol/L BUN 7.4 L (9.0-27.0) mg/dL BUN/Creatinine Ratio 8.22 L (12.00-20.00) Ratio Glucose 123 H (70-110) mg/dL POC Glucose (mg/dL) 123 H (70-110) mg/dL Calcium 7.8 L (8.7-10.3) mg/dL Total Protein (6.2-8.2) g/dL Albumin (3.8-4.9) g/dL 09/12/23 09/12/23 09/13/23 Range/Units 16:37 20:48 05:24 RBC 3.63 L (4.40-5.60) X 10*6/uL Hgb 8.8 L (13.0-17.0) g/dL Hct 29.0 L (39.6-50.0) % MCV 79.9 L (80.0-97.0) FL MCH 24.2 L (27.0-32.0) pg MCHC 30.3 L (32.0-37.0) g/dL RDW 21.3 H (11.5-14.5) % Lymphocytes # (0.90-5.00) X 10*3/uL Sodium (135-145) mmol/L Carbon Dioxide (21.6-31.8) mmol/L BUN (9.0-27.0) mg/dL BUN/Creatinine Ratio (12.00-20.00) Ratio Glucose (70-110) mg/dL POC Glucose (mg/dL) 125 H 130 H (70-110) mg/dL Calcium (8.7-10.3) mg/dL Total Protein (6.2-8.2) g/dL Albumin (3.8-4.9) g/dL 09/13/23 09/13/23 Range/Units 05:24 06:17 RBC (4.40-5.60) X 10*6/uL Hgb (13.0-17.0) g/dL Hct (39.6-50.0) % MCV (80.0-97.0) FL MCH (27.0-32.0) pg MCHC (32.0-37.0) g/dL RDW (11.5-14.5) % Lymphocytes # (0.90-5.00) X 10*3/uL Sodium 134 L (135-145) mmol/L Carbon Dioxide 21.2 L (21.6-31.8) mmol/L BUN 6.7 L (9.0-27.0) mg/dL BUN/Creatinine Ratio 8.38 L (12.00-20.00) Ratio Glucose (70-110) mg/dL POC Glucose (mg/dL) 131 H (70-110) mg/dL Calcium 8.2 L (8.7-10.3) mg/dL Total Protein 5.0 L (6.2-8.2) g/dL Albumin 3.2 L (3.8-4.9) g/dL Assessment and Plan Assessment: Postoperative day #2 status post direct anterior right total hip arthroplasty Recent fall resulting in right femoral neck fracture Acute blood loss anemia, expected surgical outcome Other medical comorbidities Plan: Pain control, plan for discharge on Hodgen 10 mg / 325 mg. Will also discharge with multiple stool softeners DVT prophylaxis, resume home anticoagulants Ferrous sulfate 325 mg twice daily for anemia Home PT/nursing after discharge Encourage incentive spirometer Monitor surgical dressing Medical recommendations Discharge planning: Stable for discharge home today Time with Patient: Less than 30
--- NOTE | 2023-09-13 09:49 | P.DS ---
Providers Date of admission: 09/10/23 00:35 Expected date of discharge: 09/13/23 Attending physician: Angus Pineda Consults: 09/10/23 01:28 Consult Physician Routine Consulting Provider: Nish Lockwood Consult Reason/Comments: surgical clearance and medical management Do you want consulting provider notified?: Yes 09/10/23 01:29 Consult Physician Routine Consulting Provider: Jeremy Mcgrath Consult Reason/Comments: Cardiac Clearance Do you want consulting provider notified?: Yes Primary care physician: [facility] Course: Date of admission: 09/09/2023 Date of discharge: 09/13/2023 Admission diagnosis: Displaced right femoral neck fracture Discharge diagnosis: Status post direct anterior right total hip arthroplasty Attending physician: Dr. Pineda Surgical procedures: Direct anterior right total hip arthroplasty Brief history: Patient is a 63-year-old male who presented to [facility] on 09/09/2023 for evaluation of a right lower extremity injury after falling outside at work. Images demonstrated a displaced right femoral neck fracture, patient was admitted under our orthopedic care with plan for surgical intervention. Hospital course: Details of patient's surgery can be found in operative report. Patient tolerated the procedure well and was subsequently transported to orthopedic floor. Patient's orthopeidc and medical care was provided daily. Patient had daily laboratory tests performed for evaluation of overall blood counts. Patient had daily physical therapy to include strengthening range of motion as well as education with walker ambulation. Patient was treated with Xarelto, Plavix, aspirin for their postoperative DVT prophylaxis during their inpatient stay. Patient was noted to have a relatively uneventful postoperative course. Patient reported satisfactory pain control with oral pain medications by postoperative day 1. Patient showed satisfactory progress with physical therapy. Patient moved steadily through the program and had no difficulty meeting the goals by postoperative day 2. Given patient's otherwise satisfactory course and having met physical therapy goals, plan is to discharge patient home on postoperative day 2. Discharge condition/disposition: Patient will be discharged home in stable condition. Discharge medications: Instructions are given on resumption of patient's normal daily medications per primary care recommendation, in addition patient will be prescribed Donald 10 mg / 325 mg, ferrous sulfate 325 mg, senna S, MiraLAX 17 g. Discharge instructions: 1. Wound care and infection precautions, keep incision dry and covered while showering, no lotions, creams, moisturizers. No soaking, tubs, pools, hottubs. Do not scrub over the incision. 2. Weight-bear as tolerated with walker / cane until follow-up. 3. Ice and elevate when necessary. Do not exceed 20 minutes per hour with ice pack. 4. Utilize compression sleeve until seen at first follow up appointment. 5. Visiting nursing care. 6. Home physical therapy. 7. Pain meds and anticoagulants per prescription. 8. Pain medication has potential to cause constipation. Increase oral fluid and fiber intake. Contact primary care provider if you have not had a bowel movement within 48 hours after discharge 9. No anti-inflammatory medication until discussed at first post operative visit, this including Motrin, Aleve, Mobic, Diclofenac. 10. Follow up in office at 2 weeks postop with Dayo Ramos PA-C/Hernesto Singh 11. Follow up with your primary care doctor 7-10 days after discharge. 12. Contact [facility] with any questions, . Procedures: Direct anterior right total hip arthroplasty Patient Condition at Discharge: Fair Plan - Discharge Summary Discharge Rx Participant: No New Discharge Prescriptions: New Ferrous Sulfate [Iron (65 MG Elemental)] 325 mg PO BID #60 tab polyethylene glycoL 3350 [Miralax] 17 gm PO DAILY PRN #21 packet PRN Reason: Constipation HYDROcodone/APAP 10-325MG [Donald 10-325] 1 tab PO Q6HR PRN 7 Days #28 tab PRN Reason: Pain Sennosides/Docusate Sodium [Senna-S 8.6-50 mg Tablet] 2 each PO DAILY PRN #30 tablet PRN Reason: Constipation No Action Tamsulosin [Flomax] 0.8 mg PO DAILY metFORMIN HCL [Glucophage] 500 mg PO BID Losartan [Cozaar] 50 mg PO DAILY Clopidogrel [Plavix] 75 mg PO DAILY #90 tab FLUoxetine HCL [PROzac] 20 mg PO DAILY Aspirin EC [Ecotrin] 325 mg PO DAILY Metoprolol Tartrate [Lopressor] 25 mg PO DAILY traZODone HCL [Desyrel] 100 mg PO HS Atorvastatin [Lipitor] 20 mg PO HS Rivaroxaban [Xarelto] 20 mg PO DAILY Cholecalciferol (Vitamin D3) [Vitamin D3 (125 MCG = 5,000 IU)] 125 mcg PO DAILY Discharge Medication List Losartan [Cozaar] 50 mg PO DAILY 09/09/22 [History] Metoprolol Tartrate [Lopressor] 25 mg PO DAILY 09/09/22 [History] Tamsulosin [Flomax] 0.8 mg PO DAILY 09/09/22 [History] metFORMIN HCL [Glucophage] 500 mg PO BID 09/09/22 [History] Atorvastatin [Lipitor] 20 mg PO HS 11/13/22 [History] traZODone HCL [Desyrel] 100 mg PO HS 11/13/22 [History] Clopidogrel [Plavix] 75 mg PO DAILY #90 tab 05/17/23 [Rx] Aspirin EC [Ecotrin] 325 mg PO DAILY 09/10/23 [History] Cholecalciferol (Vitamin D3) [Vitamin D3 (125 MCG = 5,000 IU)] 125 mcg PO DAILY 09/10/23 [History] FLUoxetine HCL [PROzac] 20 mg PO DAILY 09/10/23 [History] Rivaroxaban [Xarelto] 20 mg PO DAILY 09/10/23 [History] Ferrous Sulfate [Iron (65 MG Elemental)] 325 mg PO BID #60 tab 09/13/23 [Rx] HYDROcodone/APAP 10-325MG [Donald 10-325] 1 tab PO Q6HR PRN 7 Days #28 tab 09/13/23 [Rx] Sennosides/Docusate Sodium [Senna-S 8.6-50 mg Tablet] 2 each PO DAILY PRN #30 tablet 09/13/23 [Rx] polyethylene glycoL 3350 [Miralax] 17 gm PO DAILY PRN #21 packet 09/13/23 [Rx] Follow up Appointment(s)/Referral(s): Hernesto Epps PAC [PHYSICIAN PIPE AND TANK FABRICATOR] - 2 Weeks Angus Shaikh DO [STAFF PHYSICIAN] - 4 Weeks (has appt in September) [facility] [Primary Care Provider] - 1-2 days Patient Instructions/Handouts: Anterior Hip Replacement (DC), Anterior Hip Replacement (GEN) Activity/Diet/Wound Care/Special Instructions: Orthopedic Discharge Instructions: 1. Wound care and infection precautions, keep incision dry and covered while showering, no lotions, creams, moisturizers. No soaking, pools, hot tubs. Do not scrub over incision. 2. Weight-bear as tolerated with walker / cane until follow-up. 3. Ice and elevate when necessary. Do not exceed 20 minutes per hour with ice pack. 4. Utilize compression sleeve until seen at first follow up appointment. 5. Pain meds and anticoagulants per prescription. 6. Pain medication has potential to cause constipation. Increase oral fluid and fiber intake. Contact primary care provider if you have not had a bowel movement within 48 hours after discharge. 7. No anti-inflammatory medication until discussed at first post operative visit, this including Motrin, Aleve, Mobic, Diclofenac. 8. Follow up in office at 2 weeks postop with Dayo Ramos PA-C / Hernesto Epps PA-C 9. Follow up with your primary care doctor 7-10 days after discharge. 10. Contact [facility] with any questions, . Keep incision clean, dry, intact. While showering, cover fusion tape with Saran wrap. Keep fusion tape on until follow-up appointment in office in 2 weeks Discharge/Stand Alone Forms: Area PCPs Discharge Disposition: HOME WITH HOME HEALTH SERVICES
[2023-09-13 11:02] LABS: Glucose,Whole Blood 137 mg/dL (70-110)
--- NOTE | 2023-09-13 12:09 | P.PN ---
Subjective Progress Note Date: 09/13/23 Hospital course: Patient is a very pleasant 63-year-old male with a past medical history of paroxysmal atrial fibrillation on anticoagulation with Xarelto, PAD status post stenting to bilateral lower extremities and right vein graft, history of DVT, hypertension, hyperlipidemia, and [id number]-nmtzbampw diabetes mellitus type 2. He presented to the emergency department on 09/10/2023 status post mechanical slip and fall resulting in acute minimally displaced oblique fracture through the right femoral neck of the right hip. He was admitted under orthopedic surgery team and we were consulted for medical clearance and medical management throughout hospitalization. Reviewed preoperative EKG showing atrial fibrillation with a controlled ventricular rate of 75 bpm. Echocardiogram completed and reviewed revealing a preserved EF of 60% with no significant va lvular or structural abnormalities reported. Physical exam: Patient was seen and fully evaluated at bedside this morning. He reports mild to moderate pain in right hip that is worse with any movement. He reports currently pain is mild to moderate but tolerable at rest. He denies having any other complaints at this time. Vital signs reviewed and stable. General: Nontoxic, no distress and appears stated age. Derm: Skin warm and dry, normal coloration for ethnicity. Head: Atraumatic, normocephalic and symmetric. Eyes: EOMs intact, no lid lag, and anicteric sclera Mouth: no lip lesions, mucus membranes moist Cardiovascular: Irregularly irregular, no murmur, positive posterior tibial pulses bilaterally, and cap refill < 2 seconds. Lungs: Respirations even, regular, and unlabored on room air. Lungs CTA bilaterally, no rhonchi, no rales, no wheezing, and no accessory muscle usage. Abdominal: soft, nontender to palpation, no guarding, no appreciable organomegaly Ext: No gross muscle atrophy, no edema, no contractures. Decreased sensation but reported at baseline, movement and sensation intact equally. Neuro: Speech clear, face symmetrical and CN II-XII grossly intact with no noted focal neuro deficits Psych: Alert and oriented to person, place, time, and situation. Appropriate and pleasant affect. Assessment and Plan of Care: Acute postoperative blood loss anemia -Stable and expected finding with preoperative hemoglobin of 11.1 and current hemoglobin of 8.8. No signs of active bleeding and no need for transfusion or further interventions at this time. We will continue to monitor and transfuse if needed for hemoglobin less than 7. Displaced oblique fracture through the right femoral neck of right hip Status post right total hip arthroplasty -Management per primary admitting orthopedic surgery team including DVT prophylaxis, pain management, weightbearing, and PT/OT. -DVT prophylaxis currently with aspirin 325 mg daily. Paroxysmal atrial fibrillation History of DVT Peripheral arterial disease status post stenting to bilateral lower extremities Peripheral vascular disease status post vein graft of right leg Hypertension Hyperlipidemia -Hold aspirin, Plavix, and Xarelto pending clearance by primary admitting orthopedic surgery team to resume. -Patient to continue daily medication regimen with atorvastatin 20 mg nightly, losartan 50 mg daily, and metoprolol 25 mg daily. Type II wqx-zbtqkge-ruvcwttnj diabetes mellitus -Hold Glucophage and place patient on glycemic protocol with NovoLog sliding sc hunter to maintain tight glycemic control throughout hospitalization. BPH -Continue Flomax 0.8 mg daily. Anxiety -Continue trazodone 100 mg nightly. Data and imaging reviewed: Morning labs completed and reviewed. CBC showing stable microcytic anemia with hemoglobin of 8.8. BMP showing mild hyponatremia with sodium of 134 and mild hypocarbia with bicarb of 21.2 otherwise normal findings. Blood glucose 110. Magnesium slightly low at 1.7 Vital signs reviewed. Blood pressure 141/71, heart rate 61, respiratory rate 18, temp 98.7 F, and SpO2 of 93% on room air. Thank you for allowing us to participate in the care of this pleasant patient. Do not hesitate to contact us with questions. Someone can be reached from the [facility] hospitalist group all hours of the day at [phone] or via perfect serve. Patient was seen independently by Nurse Pracitioner. This document was prepared using revoPT dictation software. Please allow for errors in cloth bolt bander, while rare they do occur. . Objective - Vital Signs Vital signs: Vital Signs Temp 98.7 F 09/13/23 06:59 Pulse 61 09/13/23 06:59 Resp 18 09/13/23 06:59 BP 141/71 09/13/23 06:59 Pulse Ox 93 L 09/13/23 06:59 FiO2 Intake & Output 09/12/23 09/13/23 09/13/23 18:59 06:59 18:59 Output Total 250 2024 Balance -250 -2024 Output: Urine 2024 Post Void Residual 250 Other: Voiding Method Urinal # Voids 0 - Labs CBC & Chem 7: 09/13/23 05:24 09/13/23 05:24 Labs: Abnormal Lab Results - Last 24 Hours (Table) 09/12/23 09/12/23 09/12/23 Range/Units 07:06 07:06 11:23 RBC 3.69 L (4.40-5.60) X 10*6/uL Hgb 9.1 L (13.0-17.0) g/dL Hct 29.5 L (39.6-50.0) % MCV 79.9 L (80.0-97.0) FL MCH 24.7 L (27.0-32.0) pg MCHC 30.8 L (32.0-37.0) g/dL RDW 21.3 H (11.5-14.5) % Lymphocytes # 0.71 L (0.90-5.00) X 10*3/uL Sodium 134 L (135-145) mmol/L BUN 7.4 L (9.0-27.0) mg/dL BUN/Creatinine Ratio 8.22 L (12.00-20.00) Ratio Glucose 123 H (70-110) mg/dL POC Glucose (mg/dL) 123 H (70-110) mg/dL Calcium 7.8 L (8.7-10.3) mg/dL 09/12/23 09/12/23 09/13/23 Range/Units 16:37 20:48 06:17 RBC (4.40-5.60) X 10*6/uL Hgb (13.0-17.0) g/dL Hct (39.6-50.0) % MCV (80.0-97.0) FL MCH (27.0-32.0) pg MCHC (32.0-37.0) g/dL RDW (11.5-14.5) % Lymphocytes # (0.90-5.00) X 10*3/uL Sodium (135-145) mmol/L BUN (9.0-27.0) mg/dL BUN/Creatinine Ratio (12.00-20.00) Ratio Glucose (70-110) mg/dL POC Glucose (mg/dL) 125 H 130 H 131 H (70-110) mg/dL Calcium (8.7-10.3) mg/dL
[2023-09-13] MEDS: MAGNESIUM OXIDE 400 MG TAB PO STA (12:50)
== END 2023-09-13 13:23 | disposition home health service (06) | DRG 323 ==
LOC: EC 21:30 → 4SSUR 09-10 00:35
PROVIDERS: ADMIT Orthopaedic Surgery; ATTEND Orthopaedic Surgery
PROC: 3E0T3BZ Introduction of Anesthetic Agent into Peripheral Nerves and Plexi, Percutaneous Approach (ICD-10-PCS; principal; 2023-09-11 09:30)
PROC: 0SR902A Replacement of Right Hip Joint with Metal on Polyethylene Synthetic Substitute, Uncemented, Open Approach (ICD-10-PCS; principal; 2023-09-11 09:30)
DX: S72.011A Unspecified intracapsular fracture of right femur, initial encounter for closed fracture (principal); N17.9 Acute kidney failure, unspecified; I50.22 Chronic systolic (congestive) heart failure; I11.0 Hypertensive heart disease with heart failure; I48.0 Paroxysmal atrial fibrillation; E11.51 Type 2 diabetes mellitus with diabetic peripheral angiopathy without gangrene; E11.42 Type 2 diabetes mellitus with diabetic polyneuropathy; Z79.01 Long term (current) use of anticoagulants; D75.1 Secondary polycythemia; F10.10 Alcohol abuse, uncomplicated; I77.1 Stricture of artery; E78.5 Hyperlipidemia, unspecified; S13.4XXA Sprain of ligaments of cervical spine, initial encounter; N40.0 Benign prostatic hyperplasia without lower urinary tract symptoms; D62 Acute posthemorrhagic anemia; F41.9 Anxiety disorder, unspecified; I08.1 Rheumatic disorders of both mitral and tricuspid valves; I42.9 Cardiomyopathy, unspecified; J98.4 Other disorders of lung; F17.210 Nicotine dependence, cigarettes, uncomplicated; I45.10 Unspecified right bundle-branch block; E87.1 Hypo-osmolality and hyponatremia; K40.20 Bilateral inguinal hernia, without obstruction or gangrene, not specified as recurrent; W01.0XXA Fall on same level from slipping, tripping and stumbling without subsequent striking against object, initial encounter; Z79.02 Long term (current) use of antithrombotics/antiplatelets; Z79.82 Long term (current) use of aspirin; Z79.84 Long term (current) use of oral hypoglycemic drugs; Z79.899 Other long term (current) drug therapy; Z82.49 Family history of ischemic heart disease and other diseases of the circulatory system; Z86.718 Personal history of other venous thrombosis and embolism; Z95.820 Peripheral vascular angioplasty status with implants and grafts; Y99.0 Civilian activity done for income or pay; Z86.14 Personal history of Methicillin resistant Staphylococcus aureus infection
CPT/HCPCS: 36415; 70450; 71045; 72125; 72192; 73501; 73502; 80048; 80053; 81003; 83735; 83880; 84100; 84484; 85025; 85027; 85610; 85730; 86850; 86900; 86901; 93005; 93306; 94760; 96361; 96374; 96375; 96376; 99285

== ENCOUNTER 2023-10-16 16:57 | Emergency (ER) | payer OTHER ==
[2023-10-16 17:06] VITALS: RESP 18; TEMP 97.9
--- NOTE | 2023-10-16 17:35 | ED ---
Back Pain HPI - General Chief Complaint: Back Pain/Injury Stated Complaint: lower back pain/numbness Time Seen by Provider: 10/16/23 17:33 Source: patient Limitations: no limitations - History of Present Illness Initial Comments: 63-year-old male presenting with chief complaint of lower back pain. Patient had a right hip replacement at the end of August with Dr. Lance. He was cleared to return to work, he states that when he is at work and is on his feet he eventually gets pain and some numbness that radiates down his legs. No loss of bowel or bladder control or saddle paresthesia. No new injury or trauma. No fevers. No nausea or vomiting. He has history of chronic back pain. No Urinary symptoms. - Related Data Home Medications Medication Instructions Recorded Confirmed Losartan [Cozaar] 50 mg PO DAILY 09/09/22 09/10/23 Metoprolol Tartrate [Lopressor] 25 mg PO DAILY 09/09/22 09/10/23 Tamsulosin [Flomax] 0.8 mg PO DAILY 09/09/22 09/10/23 metFORMIN HCL [Glucophage] 500 mg PO BID 09/09/22 09/10/23 Atorvastatin [Lipitor] 20 mg PO HS 11/13/22 09/10/23 traZODone HCL [Desyrel] 100 mg PO HS 11/13/22 09/10/23 Aspirin EC [Ecotrin] 325 mg PO DAILY 09/10/23 09/10/23 Cholecalciferol (Vitamin D3) 125 mcg PO DAILY 09/10/23 09/10/23 [Vitamin D3 (125 MCG = 5,000 IU)] FLUoxetine HCL [PROzac] 20 mg PO DAILY 09/10/23 09/10/23 Rivaroxaban [Xarelto] 20 mg PO DAILY 09/10/23 09/10/23 Previous Rx's Medication Instructions Recorded Clopidogrel [Plavix] 75 mg PO DAILY #90 tab 05/17/23 Ferrous Sulfate [Iron (65 MG 325 mg PO BID #60 tab 09/13/23 Elemental)] HYDROcodone/APAP 10-325MG [[place] 1 tab PO Q6HR PRN 7 Days #28 tab 09/13/23 10-325] Pantoprazole [Protonix] 40 mg PO AC-BRKFST 90 Days #90 tab 09/13/23 Sennosides/Docusate Sodium 2 each PO DAILY PRN #30 tablet 09/13/23 [Senna-S 8.6-50 mg Tablet] polyethylene glycoL 3350 [Miralax] 17 gm PO DAILY PRN #21 packet 09/13/23 Allergies Allergy/AdvReac Type Severity Reaction Status Date / Time No Known Allergies Allergy Verified 10/16/23 17:06 Review of Systems ROS Statement: Those systems with pertinent positive or pertinent negative responses have been documented in the HPI. ROS Other: All systems not noted in ROS Statement are negative. Past Medical History Past Medical History: Atrial Fibrillation, Diabetes Mellitus, Deep Vein Thrombosis (DVT), Hyperlipidemia, Hypertension Additional Past Medical History / Comment(s): blood clots, cardiomyopathy, PAD History of Any Multi-Drug Resistant Organisms: MRSA Date of last positivie culture/infection: 07/05/21 MDRO Source:: Left Ankle Past Surgical History: Orthopedic Surgery Additional Past Surgical History / Comment(s): stent to rt leg, Vein graft R leg. stents to left leg Past Anesthesia/Blood Transfusion Reactions: No Reported Reaction Past Psychological History: Anxiety Smoking Status: Current every day smoker Past Alcohol Use History: Occasional Past Drug Use History: None Reported - Past Family History Mother Family Medical History: Diabetes Mellitus, Hypertension Additional Family Medical History / Comment(s): Family history of varicose veins. Father Family Medical History: CVA/TIA, Myocardial Infarction ([place]) General Exam - General Exam Comments Initial Comments: Visual Physical Exam Vital signs reviewed General: Well-appearing, nontoxic, no acute distress. Head: Normocephalic, atraumatic Eyes: PERRLA, EOMI ENT: Airway patent Chest: Nonlabored breathing Skin: No visual rash, normal skin tone Neuro: Alert and oriented 3 Musculoskeletal: No gross abnormalities Limitations: no limitations General appearance: alert, in no apparent distress Head exam: Present: atraumatic, normocephalic Eye exam: Present: normal appearance, EOMI Neck exam: Present: normal inspection. Absent: meningismus Respiratory exam: Absent: respiratory distress Cardiovascular Exam: Present: regular rate Extremities exam: Present: other (Normal lower extremity distal pulses bilaterally) Back exam: Present: paraspinal tenderness. Absent: vertebral tenderness Neurological exam: Present: alert, oriented X3 Psychiatric exam: Present: normal affect, normal mood Skin exam: Present: warm, dry, normal color Course Vital Signs 10/16/23 10/16/23 17:03 19:59 Temperature 97.9 F Pulse Rate 88 63 Respiratory 18 18 Rate Blood Pressure 112/73 143/84 O2 Sat by Pulse 97 99 Oximetry Medical Decision Making - Medical Decision Making I performed the quick note portion of this visit, electronically signed Priyanka Morales PA-C Was pt. sent in by a medical professional or institution (, [facility], INSPECT[employer], urgent care, hospital, or fci...) When possible be specific @ -No Did you speak to anyone other than the patient for history (EMS, parent, family, police, friend...)? What history was obtained from this source @ -No Did you review nursing and triage notes (agree or disagree)? Why? @ -I reviewed and agree with nursing and triage notes Were old charts reviewed (outside hosp., previous admission, EMS record, old EKG, old radiological studies, urgent care reports/EKG's, fci records)? Report findings @ -No old charts were reviewed Differential Diagnosis (chest pain, altered mental status, abdominal pain women, abdominal pain men, vaginal bleeding, weakness, fever, dyspnea, syncope, headache, dizziness, GI bleed, back pain, seizure, CVA, palpatations, mental health, musculoskeletal)? @ - MDM Differential Back Pain: Strain, zoster, cauda equina syndrome, epidural abscess, vertebral osteom yelitis, discitis, fracture, subluxation, disc herniation, DJD, spinal stenosis, dissection, AAA, pancreatitis, peptic ulcer disease, pyelonephritis, kidney stone this is not meant to be an all-inclusive list. EKG interpreted by me (3pts min.). @ -As above X-rays interpreted by me (1pt min.). @ -X-ray shows mild degenerative disc changes L4-5. Spondylosis. CT interpreted by me (1pt min.). @ -None done U/S interpreted by me (1pt. min.). @ -None done What testing was considered but not performed or refused? (CT, X-rays, U/S, labs)? Why? @ -None What meds were considered but not given or refused? Why? @ -None Did you discuss the management of the patient with other professionals (professionals i.e. , [facility]ADAN, INS[employer], lab, RT, psych nurse, social media marketer, road supervisor, teacher, third officer, high risk case manager)? Give summary @ -No Was smoking cessation discussed for >3mins.? @ -No Was critical care preformed (if so, how long)? @ -No Were there social determinants of health that impacted care today? How? (Homelessness, low income, unemployed, alcoholism, drug addiction, transportation, low edu. Level, literacy, decrease access to med. care, fci, rehab)? @ -No Was there de-escalation of care discussed even if they declined (Discuss DNR or withdrawal of care, Hospice)? DNR status @ -No What co-morbidities impacted this encounter? (DM, HTN, Smoking, COPD, CAD, Cancer, CVA, ARF, Chemo, Hep., AIDS, mental health diagnosis, sleep apnea, morbid obesity)? @ -None Was patient admitted / discharged? Hospital course, mention meds given and route, prescriptions, significant lab abnormalities, going to OR and other pertinent info. @ -63-year-old male presenting with chief complaint of lower back pain. History of chronic back pain. No injuries. No red flag symptoms. On exam he is neurovascularly intact. X-ray shows mild degenerative changes. He is given pain medication and on reassessment he reports improvement in his symptoms. Discharged home. Follow-up with PCP. Report back to ER with any new or worsening symptoms. Discussed return parameters and answered all questions. Patient conveyed verbal understanding and agreed to the plan. I discussed this case in detail with my attending Dr. Glass Undiagnosed new problem with uncertain prognosis? @ -No Drug Therapy requiring intensive monitoring for toxicity (Heparin, Nitro, Insulin, Cardizem)? @ -No Were any procedures done? @ -No Diagnosis/symptom? @ -Mechanical back pain Acute, or Chronic, or Acute on Chronic? @ -Acute Uncomplicated (without systemic symptoms) or Complicated (systemic symptoms)? @ -Uncomplicated Side effects of treatment? @ -No Exacerbation, Progression, or Severe Exacerbation? @ -No Poses a threat to life or bodily function? How? (Chest pain, [place], [place], pneumonia, PE, COPD, DKA, ARF, appy, cholecystitis, CVA, Diverticulitis, Homicidal, Suicidal, threat to staff... and all critical care pts) @ -Unlikely Disposition Clinical Impression: Mechanical back pain Disposition: HOME SELF-CARE Condition: Good Instructions (If sedation given, give patient instructions): Acute Low Back Pain (ED) Additional Instructions: Follow-up with your PCP and surgeon. Report back to ER with any new or worsening symptoms. Is patient prescribed a controlled substance at d/c from ED?: No Referrals: [facility] [Primary Care Provider] - 1-2 days Angus Pineda MD [STAFF PHYSICIAN] - 1-2 days Time of Disposition: 19:43
--- NOTE | 2023-10-16 18:03 | XR ---
EXAMINATION TYPE: XR lumbar spine 2 or 3V DATE OF EXAM: 10/16/2023 COMPARISON: None HISTORY: Pain TECHNIQUE: 3 view lumbar spine FINDINGS: There are 5 lumbar-type vertebral bodies. Pedicles are intact. Spondylosis is present L2-3 L3-4. Some mild diffuse disc space narrowing is present L4-5. Remaining disc heights are preserved. V ertebral body heights are preserved. IMPRESSION: 1. Mild degenerative disc change L4-5. 2. Spondylosis.
[2023-10-16] MEDS: KETOROLAC 15 MG/ML 1 ML VIAL IM STA (19:02)
[2023-10-16] MEDS: DEXAMETHASONE SOD PHOSPHATE 10 MG/ML 1 ML VIAL IM STA (19:05)
[2023-10-16] MEDS: LIDOCAINE 4% PATCH TOPICAL ONE (19:06)
[2023-10-16 20:00] VITALS: BP 143/84; PULSE 63
== END 2023-10-16 20:13 | disposition home or self-care (01) ==
LOC: EC 16:57
DX: M47.816 Spondylosis without myelopathy or radiculopathy, lumbar region (principal); F17.200 Nicotine dependence, unspecified, uncomplicated
CPT/HCPCS: 72100; 96372; 99283

== ENCOUNTER 2023-11-03 17:27 | Inpatient (IN) | payer OTHER ==
--- NOTE | 2023-11-03 18:18 | ED ---
Extremity Problem HPI - General Chief complaint: Extremity Problem,Nontraumatic Stated complaint: R foot numbness Time Seen by Provider: 11/03/23 17:56 Source: patient, RN notes reviewed, old records reviewed Mode of arrival: wheelchair Limitations: no limitations - History of Present Illness Initial comments: This is a 63-year-old male with history of atrial fibrillation and severe vascular disease both venous disease and varicose veins of the lower extremities as well as arterial disease with history of stents and bypass grafting. Patient presents today with severe right lower extremity pain patient suspects failure of his prior surgery MD Complaint: extremity pain -: hour(s) Location: right, lower extremity Radiation: proximal, distal Severity scale (1-10): 10 Quality: stabbing Consistency: constant Improves with: nothing Worsens with: nothing Associated Symptoms: denies other symptoms - Related Data Home Medications Medication Instructions Recorded Confirmed Losartan [Cozaar] 50 mg PO DAILY 09/09/22 11/03/23 Metoprolol Tartrate [Lopressor] 25 mg PO DAILY 09/09/22 11/03/23 Tamsulosin [Flomax] 0.8 mg PO DAILY 09/09/22 11/03/23 metFORMIN HCL [Glucophage] 500 mg PO BID 09/09/22 11/03/23 Atorvastatin [Lipitor] 20 mg PO HS 11/13/22 11/03/23 traZODone HCL [Desyrel] 100 mg PO HS 11/13/22 11/03/23 Cholecalciferol (Vitamin D3) 125 mcg PO DAILY 09/10/23 11/03/23 [Vitamin D3 (125 MCG = 5,000 IU)] FLUoxetine HCL [PROzac] 20 mg PO DAILY 09/10/23 11/03/23 HYDROcodone/APAP 7.5-325MG [Candia 1 tab PO Q8H PRN 11/03/23 11/03/23 7.5-325] Previous Rx's Medication Instructions Recorded Clopidogrel [Plavix] 75 mg PO DAILY #90 tab 05/17/23 Ferrous Sulfate [Iron (65 MG 325 mg PO BID #60 tab 09/13/23 Elemental)] Pantoprazole [Protonix] 40 mg PO AC-BRKFST 90 Days #90 tab 09/13/23 Sennosides/Docusate Sodium 2 each PO DAILY PRN #30 tablet 09/13/23 [Senna-S 8.6-50 mg Tablet] polyethylene glycoL 3350 [Miralax] 17 gm PO DAILY PRN #21 packet 09/13/23 Rivaroxaban [Xarelto] 20 mg PO W/SUPPER tab 11/05/23 Allergies Allergy/AdvReac Type Severity Reaction Status Date / Time No Known Allergies Allergy Verified 11/03/23 19:39 Review of Systems ROS Statement: Those systems with pertinent positive or pertinent negative responses have been documented in the HPI. ROS Other: All systems not noted in ROS Statement are negative. Past Medical History Past Medical History: Atrial Fibrillation, Diabetes Mellitus, Deep Vein Thrombosis (DVT), Hyperlipidemia, Hypertension Additional Past Medical History / Comment(s): blood clots, cardiomyopathy, PAD History of Any Multi-Drug Resistant Organisms: MRSA Date of last positivie culture/infection: 07/05/21 MDRO Source:: Left Ankle Past Surgical History: Heart Catheterization With Stent, Joint Replacement, Orthopedic Surgery Additional Past Surgical History / Comment(s): stent to rt leg, Vein graft R leg right fem bypass. stents to left leg Past Anesthesia/Blood Transfusion Reactions: No Reported Reaction Past Psychological History: Anxiety Smoking Status: Current every day smoker Past Alcohol Use History: Occasional Past Drug Use History: None Reported - Past Family History Mother Family Medical History: Diabetes Mellitus, Hypertension Additional Family Medical History / Comment(s): Family history of varicose veins. Father Family Medical History: CVA/TIA, Myocardial Infarction ([place]) General Exam - General Exam Comments Initial Comments: No palpable or Doppler pulse right lower extremity Limitations: no limitations General appearance: alert, in no apparent distress, anxious, in distress Head exam: Present: atraumatic, normocephalic, normal inspection Eye exam: Present: normal appearance, PERRL, EOMI. Absent: scleral icterus, con junctival injection, periorbital swelling ENT exam: Present: normal exam, mucous membranes moist Neck exam: Present: normal inspection. Absent: tenderness, meningismus, lymphadenopathy Respiratory exam: Present: normal lung sounds bilaterally. Absent: respiratory distress, wheezes, rales, rhonchi, stridor Cardiovascular Exam: Present: regular rate, normal rhythm, normal heart sounds. Absent: systolic murmur, diastolic murmur, rubs, gallop, clicks GI/Abdominal exam: Present: soft, normal bowel sounds. Absent: distended, tenderness, guarding, rebound, rigid Extremities exam: Present: normal inspection, full ROM, normal capillary refill. Absent: tenderness, pedal edema, joint swelling, calf tenderness Back exam: Present: normal inspection Neurological exam: Present: alert, oriented X3, CN II-XII intact Psychiatric exam: Present: normal affect, normal mood Skin exam: Present: warm, dry, intact, normal color. Absent: rash Course Vital Signs 11/03/23 11/03/23 11/03/23 17:29 18:37 23:58 Temperature 97.9 F Pulse Rate 105 H 87 84 Respiratory 20 16 18 Rate Blood Pressure 164/72 160/92 178/111 O2 Sat by Pulse 99 97 Oximetry 11/04/23 11/04/23 11/04/23 04:00 06:52 07:48 Temperature 98 F Pulse Rate 65 71 70 Respiratory 18 18 20 Rate Blood Pressure 163/101 161/105 169/100 O2 Sat by Pulse 96 100 94 L Oximetry 11/04/23 08:49 Temperature Pulse Rate 98 Respiratory 20 Rate Blood Pressure 120/68 O2 Sat by Pulse 98 Oximetry - Reevaluation(s) Reevaluation #1: 11/03/23 19:43 Medical records reviewed Reevaluation #2: 11/03/23 19:43 Patient patient's pain is improved Reevaluation #3: 11/03/23 19:43 Patient informed of results questions answered Reevaluation #4: Was pt. sent in by a medical professional or institution (, PA, GRINDER SET UP OPERATOR EXTERNAL, urgent care, hospital, or fpc...) When possible be specific @ -no Did you speak to anyone other than the patient for history (EMS, parent, family, police, friend...)? What history was obtained from this source @ -no Did you review nursing and triage notes (agree or disagree)? Why? @ -agree Are old charts reviewed (outside hosp., previous admission, EMS record, old EKG, old radiological studies, urgent care reports/EKG's, fpc records)? Report findings @ -yes Differential Diagnosis (chest pain, altered mental status, abdominal pain women, abdominal pain men, vaginal bleeding, weakness, fever, dyspnea, syncope, headache, dizziness, GI bleed, back pain, seizure, CVA, palpatations, mental health, musculoskeletal)? @ -prior EKG interpreted by me (3pts min.). @ -yes X-rays interpreted by me (1pt min.). @ -yes negative for acute disease CT interpreted by me (1pt min.). @ -Yes positive for graft occlusion U/S interpreted by me (1pt. min.). @ -no What testing was considered but not performed or refused? (CT, X-rays, U/S, la bs)? Why? @ -none What meds were considered but not given or refused? Why? @ -none Did you discuss the management of the patient with other professionals (professionals i.e. , PA, GRINDER SET UP OPERATOR EXTERNAL, lab, RT, psych nurse, director social service, line up machine operator, teacher, press officer, caser shoe parts)? Give summary @ -no Was smoking cessation discussed for >3mins.? @ -no Was critical care preformed (if so, how long)? @ -yes31 Were there social determinants of health that impacted care today? How? (Homelessness, low income, unemployed, alcoholism, drug addiction, transportation, low edu. Level, literacy, decrease access to med. care, fdc, rehab)? @ -none Was there de-escalation of care discussed even if they declined (Discuss DNR or withdrawal of care, Hospice)? DNR status @ -no What co-morbidities impacted this encounter? (DM, HTN, Smoking, COPD, CAD, Cancer, CVA, ARF, Chemo, Hep., AIDS, mental health diagnosis, sleep apnea, morbid obesity)? @ -none Was patient admitted / discharged? Hospital course, mention meds given and route, prescriptions, significant lab abnormalities, going to OR and other pertinent info. @ - 63 male with acute arterial occlusion right lower extremity history of bypass graft of the right lower extremity cadaver graft. Patient states pain and loss of pulse occurred today Admitted Undiagnosed new problem with uncertain prognosis? @ -no Drug Therapy requiring intensive monitoring for toxicity (Heparin, Nitro, Insulin, Cardizem)? @ -no Were any procedures done? @ -no Diagnosis/symptom? @ -occluded graft Acute, or Chronic, or Acute on Chronic? @ -Acute Uncomplicated (without systemic symptoms) or Complicated (systemic symptoms)? @ -Complicated Side effects of treatment? @ -no Exacerbation, Progression, or Severe Exacerbation? @ -exacerbation Poses a threat to life or bodily function? How? (Chest pain, [place], [place], pneumonia, PE, COPD, DKA, ARF, appy, cholecystitis, CVA, Diverticulitis, Homicidal, Suicidal, threat to staff... and all critical care pts) @ -yes occluded graft - Consultations Consultation #1: Spoke with Dr. Lemus agrees CT scan of the right lower extremity and will accept to see the patient as a consultation for admission Medical Decision Making - Medical Decision Making 63 male with acute arterial occlusion right lower extremity history of bypass graft of the right lower extremity cadaver graft. Patient states pain and loss of pulse occurred today - Lab Data Result diagrams: 11/05/23 03:51 11/05/23 03:51 Lab Results 11/03/23 11/03/23 11/03/23 Range/Units 18:36 18:36 18:36 WBC 9.9 (3.8-10.6) k/uL RBC 4.68 (4.30-5.90) m/uL Hgb 12.5 L (13.0-17.5) gm/dL Hct 39.6 (39.0-53.0) % MCV 84.8 (80.0-100.0) fL MCH 26.7 (25.0-35.0) pg MCHC 31.5 (31.0-37.0) g/dL RDW 18.9 H (11.5-15.5) % Plt Count 277 (150-450) k/uL MPV 8.1 Neutrophils % 84 % Lymphocytes % 9 % Monocytes % 5 % Eosinophils % 1 % Basophils % 0 % Neutrophils # 8.3 H (1.3-7.7) k/uL Lymphocytes # 0.9 L (1.0-4.8) k/uL Monocytes # 0.5 (0-1.0) k/uL Eosinophils # 0.1 (0-0.7) k/uL Basophils # 0.0 (0-0.2) k/uL Hypochromasia Moderate Anisocytosis Slight PT 9.9 L (10.0-12.5) sec INR 0.9 (<1.2) APTT 25.7 (22.0-30.0) sec Sodium (137-145) mmol/L Potassium (3.5-5.1) mmol/L Chloride (98-107) mmol/L Carbon Dioxide (22-30) mmol/L Anion Gap mmol/L BUN (9-20) mg/dL Creatinine (0.66-1.25) mg/dL Est GFR (CKD-EPI)AfAm (>60 ml/min/1.73 sqM) Est GFR (CKD-EPI)NonAf (>60 ml/min/1.73 sqM) Glucose (74-99) mg/dL Plasma Lactic Acid Juancarlos (0.7-2.0) mmol/L Calcium (8.4-10.2) mg/dL Phosphorus (2.5-4.5) mg/dL Magnesium (1.6-2.3) mg/dL Total Bilirubin (0.2-1.3) mg/dL AST (17-59) U/L ALT (4-49) U/L Alkaline Phosphatase (38-126) U/L Troponin I (0.000-0.034) ng/mL NT-Pro-B Natriuret Pep pg/mL Total Protein (6.3-8.2) g/dL Albumin (3.5-5.0) g/dL Urine Color Yellow Urine Appearance Clear (Clear) Urine pH 7.0 (5.0-8.0) Ur Specific [place] 1.012 (1.001-1.035) Urine Protein Trace H (Negative) Urine Glucose (UA) Negative (Negative) Urine Ketones Negative (Negative) Urine Blood Negative (Negative) Urine Nitrite Negative (Negative) Urine Bilirubin Negative (Negative) Urine Urobilinogen <2.0 (<2.0) mg/dL Ur Leukocyte Esterase Negative (Negative) 11/03/23 11/03/23 11/03/23 Range/Units 18:36 18:36 18:36 WBC (3.8-10.6) k/uL RBC (4.30-5.90) m/uL Hgb (13.0-17.5) gm/dL Hct (39.0-53.0) % MCV (80.0-100.0) fL MCH (25.0-35.0) pg MCHC (31.0-37.0) g/dL RDW (11.5-15.5) % Plt Count (150-450) k/uL MPV Neutrophils % % Lymphocytes % % Monocytes % % Eosinophils % % Basophils % % Neutrophils # (1.3-7.7) k/uL Lymphocytes # (1.0-4.8) k/uL Monocytes # (0-1.0) k/uL Eosinophils # (0-0.7) k/uL Basophils # (0-0.2) k/uL Hypochromasia Anisocytosis PT (10.0-12.5) sec INR (<1.2) APTT (22.0-30.0) sec Sodium 138 (137-145) mmol/L Potassium 5.5 H (3.5-5.1) mmol/L Chloride 105 (98-107) mmol/L Carbon Dioxide 23 (22-30) mmol/L Anion Gap 10 mmol/L BUN 16 (9-20) mg/dL Creatinine 1.75 H (0.66-1.25) mg/dL Est GFR (CKD-EPI)AfAm 47 (>60 ml/min/1.73 sqM) Est GFR (CKD-EPI)NonAf 41 (>60 ml/min/1.73 sqM) Glucose 99 (74-99) mg/dL Plasma Lactic Acid Juancarlos 1.2 (0.7-2.0) mmol/L Calcium 9.8 (8.4-10.2) mg/dL Phosphorus 4.8 H (2.5-4.5) mg/dL Magnesium 2.2 (1.6-2.3) mg/dL Total Bilirubin 0.5 (0.2-1.3) mg/dL AST 34 (17-59) U/L ALT 18 (4-49) U/L Alkaline Phosphatase 83 (38-126) U/L Troponin I <0.012 (0.000-0.034) ng/mL NT-Pro-B Natriuret Pep 7080 pg/mL Total Protein 7.7 (6.3-8.2) g/dL Albumin 4.7 (3.5-5.0) g/dL Urine Color Urine Appearance (Clear) Urine pH (5.0-8.0) Ur Specific [place] (1.001-1.035) Urine Protein (Negative) Urine Glucose (UA) (Negative) Urine Ketones (Negative) Urine Blood (Negative) Urine Nitrite (Negative) Urine Bilirubin (Negative) Urine Urobilinogen (<2.0) mg/dL Ur Leukocyte Esterase (Negative) - EKG Data -: EKG Interpreted by Me (EKG is sinus 89 LA 150 QRS 137 QTc 444) - Radiology Data Radiology results: image reviewed Critical Care Time Critical Care Time: Yes Total Critical Care Time: 31 Disposition Clinical Impression: Arterial occlusion, lower extremity, Right leg pain, Arterial insufficiency of lower extremity, History of atrial fibrillation, Paresthesia of right foot, Peripheral vascular disease Disposition: ADMITTED IP TO THIS [facility] Condition: Stable Is patient prescribed a controlled substance at d/c from ED?: No Time of Disposition: 19:40
[2023-11-03 18:55] LABS: Anisocytosis Slight; Basophils % (A) 0 %; Eosinophils # (A) 0.1 k/uL (0-0.7); Eosinophils % (A) 1 %; HCT 39.6 % (39.0-53.0); HGB 12.5 gm/dL (13.0-17.5); Hypochromasia Moderate; Lymphocytes # (A) 0.9 k/uL (1.0-4.8); Lymphocytes % (A) 9 %; MCH 26.7 pg (25.0-35.0); MCHC 31.5 g/dL (31.0-37.0); MCV 84.8 fL (80.0-100.0); Mean Platelet Volume 8.1; Monocytes # (A) 0.5 k/uL (0-1.0); Monocytes % (A) 5 %; Neutrophils # (A) 8.3 k/uL (1.3-7.7); Neutrophils % (A) 84 %; Platelet Count 277 k/uL (150-450); RBC 4.68 m/uL (4.30-5.90); RDW 18.9 % (11.5-15.5); WBC 9.9 k/uL (3.8-10.6)
[2023-11-03] MEDS: SODIUM CHLORIDE 0.9% 1,000 ML IV STA (18:59)
[2023-11-03] MEDS: MORPHINE SULFATE 4 MG/ML SYRINGE IV STA (19:00)
[2023-11-03 19:08] LABS: ALT 18 U/L (4-49); AST 34 U/L (17-59); African American GFR (CKD) 47 (>60 ml/min/1.73 sqM); Albumin 4.7 g/dL (3.5-5.0); Alkaline Phosphatase 83 U/L (38-126); Anion Gap 10 mmol/L; Blood Urea Nitrogen 16 mg/dL (9-20); Calcium 9.8 mg/dL (8.4-10.2); Carbon Dioxide 23 mmol/L (22-30); Chloride 105 mmol/L (98-107); Glucose 99 mg/dL (74-99); Magnesium 2.2 mg/dL (1.6-2.3); Non-African American GFR(CKD) 41 (>60 ml/min/1.73 sqM); Phosphorus 4.8 mg/dL (2.5-4.5); Potassium 5.5 mmol/L (3.5-5.1); Sodium 138 mmol/L (137-145); Total Bilirubin 0.5 mg/dL (0.2-1.3); Total Protein 7.7 g/dL (6.3-8.2)
[2023-11-03 19:12] LABS: Appearance,Urine Clear (Clear); Bilirubin,Urine Negative (Negative); Blood,Urine Negative (Negative); Color,Urine Yellow; Glucose,Urine (UA) Negative (Negative); Ketones,Urine Negative (Negative); Leukocyte Esterase,Urine Negative (Negative); Nitrite,Urine Negative (Negative); Protein,Urine Trace (Negative); Specific Gravity,Urine 1.012 (1.001-1.035); Urobilinogen,Urine <2.0 mg/dL (<2.0)
[2023-11-03 19:14] LABS: NT-Pro-B-Type Natriuretic Pept 7080 pg/mL
[2023-11-03 19:20] LABS: INR 0.9 (<1.2); Partial Thromboplastin Time 25.7 sec (22.0-30.0); Prothrombin Time 9.9 sec (10.0-12.5)
[2023-11-03] MEDS ORDERED: NALOXONE 0.4 MG/ML 1 ML VIAL IV PRN (19:40)
[2023-11-03] MEDS ORDERED: ONDANSETRON 4 MG/2 ML VIAL IVP PRN (19:40)
[2023-11-03] MEDS: HEPARIN SODIUM 1,000 UN/ML (10ML VL) IV ONE (19:45)
[2023-11-03] MEDS: HEPARIN SOD,PORK IN 0.45% NACL 25,000 UNIT in 0.45% NACL 1 250ML.BAG IV SCH (19:54)
--- NOTE | 2023-11-03 20:37 | US ---
EXAMINATION TYPE: US venous doppler duplex LE RT DATE OF EXAM: 11/03/2023 7:20 PM COMPARISON: 05/13/22 CLINICAL INDICATION: Male, 63 years old with history of DVT; Right leg numbness SIDE PERFORMED: Right TECHNIQUE: The lower extremity deep venous system is examined utilizing real time linear array sonog tisha with graded compression, doppler sonography and color-flow sonography. VESSELS IMAGED: Common Femoral Vein Deep Femoral Vein Greater Saphenous Vein * Femoral Vein Popliteal Vein Small Saphenous Vein * Proximal Calf Veins (* superficial vessels) Right Leg: No evidence for DVT seen IMPRESSION: No evidence for DVT within the right lower extremity imaged from the groin to the upper calf. [facility], , 11/03/2023 8:35 PM
[2023-11-03] MEDS: SODIUM CHLORIDE 0.9% 1,000 ML IV SCH (20:45)
--- NOTE | 2023-11-03 22:24 | CT ---
EXAMINATION TYPE: CT angio abd aorta w/Runoff (without and with contrast) DATE OF EXAM: 11/03/2023 COMPARISON: 01/21/2020 HISTORY: 63-year-old male right lower extremity arterial occlusion, loss of feeling to right calf. S tarted 2 hours ago. C/o cramping numbness. Hx vein grafts to right leg and stents. TECHNIQUE: CT of the abdomen and pelvis before and after administration of 80 mL Isovue [address] Postcontrast scan completed with bilateral lower extremity runoff. Coronal/sagittal reconstructio ns performed. 3-D reconstructions generated on a dedicated independent workstation. CT DLP: 2208 mGycm Automated exposure control for dose reduction was used. FINDINGS: The heart is upper limits of normal in size and there are coronary calcifications. Dependent atelecta sis lower lungs without pleural effusion. Liver, gallbladder, adrenal glands, spleen, pancreas and aggressive pneumonia. Small renal cortical cysts redemonstrated measuring up to 9 mm. No dilated small bowel, free fluid, or free air. No dilated small bowel, free fluid, or free air. No mesenteric or retroperitoneal lymphadenopathy. Mi ld wording. No pericolonic inflammatory change. Bladder urine distended. Fatty left inguinal hernia redemonstrated, increased in size measuring up to 4.9 cm thick versus 2.9 cm, previously. Mild to moderate atherosclerotic calcifications infrarenal abdominal aorta. More moderate in the bila teral iliac arteries. No fusiform aneurysm infrarenal abdominal aorta to 3.1 cm versus 2.8 cm, previo usly. Right: Moderate focal stenosis proximal external iliac artery. Scattered moderate atherosclerotic changes throughout the right lower extremity. There appears to be a new bypass graft from the distal E MARKETING SPECIALIST which shortly occludes after its takeoff. Ongoing occlusion of the SFA just after its origin. Chronically occluded distal SFA and upper popliteal artery stent redemonstrated. There is faint reconstitution of diminutive trifurcation vessels at the mid calf. Neither peroneal or posterior tibial artery are seen at the distal lead level. Faint runoff to the hindfoot from a dimin utive anterior tibial artery. Left: Mild segmental stenoses common and external iliac arteries. Scattered moderate atherosclerotic change in the remainder of the left lower extremity. E MARKETING SPECIALIST is patent. PFA is patent. Interval placement of long SFA stent now with appropriate enhancement. 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 Improved and the luminal caliber compare d to prior exam. Trifurcation vessels are patent though the peroneal artery becomes diminutive at the mid leg level an d is no longer seen shortly thereafter. A two-vessel runoff via the anterior and posterior tibial art eries. Anterior tibial artery seen to the hindfoot level. Bones: Hypertrophic facet arthropathy mid to lower lumbar spine. Mild to moderate degenerative disc d isease L4-L5 and mild elsewhere in the lower lumbar spine. Interval placement of right total hip art hroplasty. IMPRESSION: 1. Enlarging fatty left inguinal hernia currently measuring 4.9 cm thick versus 2.9 cm, previously. 2. Interval development of infrarenal AAA measuring 3.1 cm versus 2.8 cm, previously. Right: 3. Ongoing occlusion of the SFA just after its takeoff. Chronically occluded distal SFA and upper pop liteal artery stents. 4. INTERVAL PLACEMENT OF A BYPASS GRAFT COURSING ALONG THE LATERAL ASPECT OF THE LOWER EXTREMITY EXTE NDING FROM THE DISTAL E MARKETING SPECIALIST DOWN TO THE LEG. THIS NEW GRAFT IS OCCLUDED JUST AFTER ITS TAKEOFF. Critic al finding called to DR. Leal In THE ER AT 10:20 PM. 5. Faint reconstitution of diminutive trifurcation vessels at the mid calf. 6. The peroneal and posterior tibial arteries are not seen beyond the distal leg. 7. Faint runoff to the hindfoot via the anterior tibial artery. Left: 8. Interval placement of long segment stent left SFA which remains patent. 9. Interval improvement now with a widely patent, enhancing lumen of the popliteal artery though inci dental 1.1 cm fusiform aneurysm here of the popliteal artery. 10. Patent trifurcation vessels though the peroneal artery becomes diminutive at the mid leg and is n o longer seen shortly thereafter. 11. Two-vessel runoff via the anterior and posterior tibial arteries of the anterior tibial artery is only seen to the hindfoot level. [facility], , 11/03/2023 10:21 PM
[2023-11-04] MEDS ORDERED: DEXTROSE 50% SYRINGE 50 ML IVP PRN ×2 (00:02)
[2023-11-04] MEDS: MORPHINE SULFATE 4 MG/ML SYRINGE IV PRN (00:06)
--- NOTE | 2023-11-04 00:16 | P.HPIM ---
History of Present Illness H&P Date: 11/03/23 Chief Complaint: Right lower extremity pain 64-year-old male with severe peripheral arterial disease, varicose veins, CHF Patient coming in with sudden onset pain numbness and cold right foot which started this afternoon patient is known to have severe peripheral arterial d isease and vascular occlusion requiring multiple episodes of surgeries grafting and stenting patient reports that he had 3 stents in his left lower extremity for which she is on Plavix and Xarelto, he reports history of bypass grafting 2 years ago of the right lower extremity. Patient continues to smoke. He denies any injuries. He claims to be compliant with his medications however he had stopped his blood thinners for few days around his recent surgery on his hip about 2 months ago. Patient admits to ongoing smoking he cut back to half a pack a day denies any street drugs or alcohol Patient denies any falls fevers chills nausea vomiting chest pain trouble breathing abdominal pain. Patient denies any GI bleeding denies any melena. He reports history of CHF currently without leg edema he reports symptoms suggestive of NYHA class III denies any orthopnea or paroxysmal nocturnal dysp master review of systems Pertinent positives as noted in HPI. All other systems were reviewed and are negative on exam Constitutional: No acute distress, conversant, pleasant Eyes: Anicteric sclerae, moist conjunctiva, Pupils equal round reactive to light ENMT: NC/AT Oropharynx clear, no erythema, or exudates Neck: Supple, no masses, or JVD No carotid bruits No thyromegaly Lungs: Clear to auscultation Clear to percussion Normal respiratory effort, no accessory muscle use Cardiovascular: Heart regular in rate and rhythm, No murmurs, gallops, or rubs No peripheral edema Abdominal: Soft Nontender, no guarding, rebound or rigidity Abdomen moving with respiration Normoactive bowel sounds Extremities: Cold right foot, however warm to the touch approximately over the legs and thigh No clubbing Pedal pulses undetectable on the right foot Radial pulses intact and symmetrical No calf tenderness Psychiatric: Alert and oriented to person, place and time Appropriate affect fair judgement Neuro Muscles Strength 5/5 in all 4 extremities Sensation to light touch grossly present throughout Cranial nerves II-XII grossly intact Past Medical History Past Medical History: Atrial Fibrillation, Diabetes Mellitus, Deep Vein Thrombosis (DVT), Hyperlipidemia, Hypertension Additional Past Medical History / Comment(s): blood clots, cardiomyopathy, PAD History of Any Multi-Drug Resistant Organisms: MRSA Date of last positivie culture/infection: 07/05/21 MDRO Source:: Left Ankle Past Surgical History: Heart Catheterization With Stent, Joint Replacement, Orthopedic Surgery Additional Past Surgical History / Comment(s): stent to rt leg, Vein graft R leg right fem bypass. stents to left leg Past Anesthesia/Blood Transfusion Reactions: No Reported Reaction Past Psychological History: Anxiety Smoking Status: Current every day smoker Past Alcohol Use History: Occasional Past Drug Use History: None Reported - Past Family History Mother Family Medical History: Diabetes Mellitus, Hypertension Additional Family Medical History / Comment(s): Family history of varicose veins. Father Family Medical History: CVA/TIA, Myocardial Infarction ([place]) Medications and Allergies Home Medications Medication Instructions Recorded Confirmed Type Losartan [Cozaar] 50 mg PO DAILY 09/09/22 11/03/23 History Metoprolol Tartrate [Lopressor] 25 mg PO DAILY 09/09/22 11/03/23 History Tamsulosin [Flomax] 0.8 mg PO DAILY 09/09/22 11/03/23 History metFORMIN HCL [Glucophage] 500 mg PO BID 09/09/22 11/03/23 History Atorvastatin [Lipitor] 20 mg PO HS 11/13/22 11/03/23 History traZODone HCL [Desyrel] 100 mg PO HS 11/13/22 11/03/23 History Clopidogrel [Plavix] 75 mg PO DAILY #90 tab 05/17/23 11/03/23 Rx Aspirin EC [Ecotrin] 325 mg PO DAILY 09/10/23 11/03/23 History Cholecalciferol (Vitamin D3) 125 mcg PO DAILY 09/10/23 11/03/23 History [Vitamin D3 (125 MCG = 5,000 IU)] FLUoxetine HCL [PROzac] 20 mg PO DAILY 09/10/23 11/03/23 History Rivaroxaban [Xarelto] 20 mg PO DAILY 09/10/23 11/03/23 History Ferrous Sulfate [Iron (65 MG 325 mg PO BID #60 tab 09/13/23 11/03/23 Rx Elemental)] Pantoprazole [Protonix] 40 mg PO AC-BRKFST 90 Days #90 tab 09/13/23 11/03/23 Rx Sennosides/Docusate Sodium 2 each PO DAILY PRN #30 tablet 09/13/23 11/03/23 Rx [Senna-S 8.6-50 mg Tablet] polyethylene glycoL 3350 [Miralax] 17 gm PO DAILY PRN #21 packet 09/13/23 11/03/23 Rx HYDROcodone/APAP 7.5-325MG [[place] 1 tab PO Q8H PRN 11/03/23 11/03/23 History 7.5-325] Allergies Allergy/AdvReac Type Severity Reaction Status Date / Time No Known Allergies Allergy Verified 11/03/23 19:39 Physical Exam Vitals: Vital Signs Temp Pulse Resp BP Pulse Ox 11/03/23 23:58 84 18 178/111 97 11/03/23 18:37 87 16 160/92 11/03/23 17:29 97.9 F 105 H 20 164/72 99 Intake and Output 11/03/23 11/03/23 11/04/23 14:59 22:59 06:59 Other: Weight 74.843 kg Results CBC & Chem 7: 11/03/23 18:36 11/03/23 18:36 Labs: Abnormal Lab Results - Last 24 Hours (Table) 11/03/23 11/03/23 11/03/23 Range/Units 18:36 18:36 18:36 Hgb 12.5 L (13.0-17.5) gm/dL RDW 18.9 H (11.5-15.5) % Neutrophils # 8.3 H (1.3-7.7) k/uL Lymphocytes # 0.9 L (1.0-4.8) k/uL PT 9.9 L (10.0-12.5) sec Potassium (3.5-5.1) mmol/L Creatinine (0.66-1.25) mg/dL Phosphorus (2.5-4.5) mg/dL Urine Protein Trace H (Negative) 11/03/23 Range/Units 18:36 Hgb (13.0-17.5) gm/dL RDW (11.5-15.5) % Neutrophils # (1.3-7.7) k/uL Lymphocytes # (1.0-4.8) k/uL PT (10.0-12.5) sec Potassium 5.5 H (3.5-5.1) mmol/L Creatinine 1.75 H (0.66-1.25) mg/dL Phosphorus 4.8 H (2.5-4.5) mg/dL Urine Protein (Negative) Assessment and Plan Assessment: 63-year-old male with severe peripheral arterial disease requiring bypass grafting, multiple stents bilateral lower extremities. Presenting with sudden onset pain cold and numb right foot I discussed case with ED doctor and accepted the admission for suspected ischemic limb with anticipated length of stay more than 2 midnights for vascular surgery evaluation Occlusion of the SFA on the right side with chronically occluded distal SFA and upper popliteal arteries CT angio of the lower extremity showed interval placement of the bypass graft coursing along the lateral aspect of the lower extremity extending from the distal [employer]ELOP[employer] down to the leg which is occluded just after its takeoff, the peroneal and posterior tibial arteries are not seen beyond the distal leg. Please refer to the report on chart for full results and other incidental findings Case discussed with vascular surgery recommended heparin drip Pain control with Dilaudid 0.5 mg IV push as needed every 3 hours for pain IV fluid hydration normal saline 75 cc/h N.p.o. after midnight Hold Xarelto Continue with Plavix and aspirin Acute kidney injury BUN 16 creatinine 1.75 elevated Avoid nephrotoxic meds Hold losartan IV fluid hydration normal saline 75 cc/h Monitor urine output Monitor renal function Hyperlipidemia Continue statin Congestive heart failure chronic systolic, with left ventricular ejection fraction 35% currently compensated Paroxysmal A-fib on Xarelto currently on hold patient switched to heparin drip for Diabetes mellitus hold oral hypoglycemic agents Insulin sliding scale Rest of blood work unremarkable white count 9.9 hemoglobin 12.5 unremarkable Sodium 138 potassium 5.5 Troponins negative unremarkable Full code DVT prophylaxis on heparin drip
[2023-11-04] MEDS: HEPARIN SODIUM 1,000 UN/ML (10ML VL) IV PRN (03:59)
[2023-11-04] MEDS: INSULIN ASPART (NovoLOG) 100 UNIT/ML VIAL SQ SCH (07:49)
[2023-11-04 07:50] LABS: Glucose,Whole Blood 97 mg/dL (70-110)
[2023-11-04] MEDS: ASPIRIN 325 MG TAB PO SCH (08:01)
[2023-11-04] MEDS: FLUoxetine HCL 20 MG CAP PO SCH (08:01)
[2023-11-04] MEDS: METOPROLOL TARTRATE 25 MG TAB PO SCH (08:01)
[2023-11-04] MEDS: PANTOPRAZOLE 40 MG TABLET PO SCH (08:01)
[2023-11-04] MEDS: CLOPIDOGREL 75 MG TAB PO SCH (08:01)
[2023-11-04] MEDS: TAMSULOSIN 0.4 MG CAP.ER.24H PO SCH (08:01)
[2023-11-04] MEDS ORDERED: LOSARTAN 50 MG TAB PO SCH (09:00)
--- NOTE | 2023-11-04 09:01 | P.GSCN ---
History of Present Illness Consult date: 11/04/23 Reason for Consult: right bypass thrombosis History of present illness: 63 year old gentleman with history of right femoral to anterior tibial artery bypass with Cryovein graft presented to the ER with acute onset of right foot and calf pain and worsening numbness. He states the bypass pulse was gone last night before coming to the hospital. He had a CTA of the right lower extremity which demonstrated occlusion of the bypass just after the proximal anastomosis. He was started on a heparin drip and he states his pain improved. He states he can move his foot and walk without severe pain but he is concerned about the worsening numbness. He denies any fevers, chills, chest pain or shortness of breath. Review of Systems All systems: negative (what is mentioned in the PMH or HPI) Past Medical History Past Medical History: Atrial Fibrillation, Diabetes Mellitus, Deep Vein Thrombosis (DVT), Hyperlipidemia, Hypertension Additional Past Medical History / Comment(s): blood clots, cardiomyopathy, PAD History of Any Multi-Drug Resistant Organisms: MRSA Year Discovered:: 07/05/21 MDRO Source:: Left Ankle Past Surgical History: Heart Catheterization With Stent, Joint Replacement, Orthopedic Surgery Additional Past Surgical History / Comment(s): stent to rt leg, Vein graft R leg right fem bypass. stents to left leg Past Anesthesia/Blood Transfusion Reactions: No Reported Reaction Past Psychological History: Anxiety Smoking Status: Current every day smoker Past Alcohol Use History: Occasional Past Drug Use History: None Reported - Past Family History Mother Family Medical History: Diabetes Mellitus, Hypertension Additional Family Medical History / Comment(s): Family history of varicose vei ns. Father Family Medical History: CVA/TIA, Myocardial Infarction ([place]) Medications and Allergies Home Medications Medication Instructions Recorded Confirmed Type Losartan [Cozaar] 50 mg PO DAILY 09/09/22 11/03/23 History Metoprolol Tartrate [Lopressor] 25 mg PO DAILY 09/09/22 11/03/23 History Tamsulosin [Flomax] 0.8 mg PO DAILY 09/09/22 11/03/23 History metFORMIN HCL [Glucophage] 500 mg PO BID 09/09/22 11/03/23 History Atorvastatin [Lipitor] 20 mg PO HS 11/13/22 11/03/23 History traZODone HCL [Desyrel] 100 mg PO HS 11/13/22 11/03/23 History Clopidogrel [Plavix] 75 mg PO DAILY #90 tab 05/17/23 11/03/23 Rx Aspirin EC [Ecotrin] 325 mg PO DAILY 09/10/23 11/03/23 History Cholecalciferol (Vitamin D3) 125 mcg PO DAILY 09/10/23 11/03/23 History [Vitamin D3 (125 MCG = 5,000 IU)] FLUoxetine HCL [PROzac] 20 mg PO DAILY 09/10/23 11/03/23 History Rivaroxaban [Xarelto] 20 mg PO DAILY 09/10/23 11/03/23 History Ferrous Sulfate [Iron (65 MG 325 mg PO BID #60 tab 09/13/23 11/03/23 Rx Elemental)] Pantoprazole [Protonix] 40 mg PO AC-BRKFST 90 Days #90 tab 09/13/23 11/03/23 Rx Sennosides/Docusate Sodium 2 each PO DAILY PRN #30 tablet 09/13/23 11/03/23 Rx [Senna-S 8.6-50 mg Tablet] polyethylene glycoL 3350 [Miralax] 17 gm PO DAILY PRN #21 packet 09/13/23 11/03/23 Rx HYDROcodone/APAP 7.5-325MG [[place] 1 tab PO Q8H PRN 11/03/23 11/03/23 History 7.5-325] Allergies Allergy/AdvReac Type Severity Reaction Status Date / Time No Known Allergies Allergy Verified 11/03/23 19:39 Surgical - Exam Vital Signs Temp Pulse Resp BP Pulse Ox 97.9 F 105 H 20 164/72 99 11/03/23 17:29 11/03/23 17:29 11/03/23 17:29 11/03/23 17:29 11/03/23 17:29 Patient Seen Date: 11/04/23 Patient Seen Time: 08:20 - General well developed, well nourished, no distress - Eyes PERRL, normal ocular movement - ENT normal pinna, normal nares - Neck no masses, no bruits - Respiratory normal expansion, normal respiratory effort - Cardiovascular Rhythm: regular - Abdomen Abdomen: soft, non tender - Integumentary no rash, no growths - Neurologic normal coordination - Psychiatric oriented to time, oriented to person, oriented to place, speech is normal non palpable pulse in right femoral tibial bypass palpable femoral pulse right foot is cool with slow capillary refill No tenderness to palpation with active or passive range of motion. Results - Labs 11/03/23 18:36 11/03/23 18:36 Abnormal Lab Results - Last 24 Hours (Table) 11/03/23 11/03/23 11/03/23 Range/Units 18:36 18:36 18:36 Hgb 12.5 L (13.0-17.5) gm/dL RDW 18.9 H (11.5-15.5) % Neutrophils # 8.3 H (1.3-7.7) k/uL Lymphocytes # 0.9 L (1.0-4.8) k/uL PT 9.9 L (10.0-12.5) sec APTT (22.0-30.0) sec Potassium (3.5-5.1) mmol/L Creatinine (0.66-1.25) mg/dL Phosphorus (2.5-4.5) mg/dL Urine Protein Trace H (Negative) 11/03/23 11/04/23 Range/Units 18:36 01:52 Hgb (13.0-17.5) gm/dL RDW (11.5-15.5) % Neutrophils # (1.3-7.7) k/uL Lymphocytes # (1.0-4.8) k/uL PT (10.0-12.5) sec APTT 35.4 H (22.0-30.0) sec Potassium 5.5 H (3.5-5.1) mmol/L Creatinine 1.75 H (0.66-1.25) mg/dL Phosphorus 4.8 H (2.5-4.5) mg/dL Urine Protein (Negative) Diabetes panel 11/03/23 Range/Units 18:36 Sodium 138 (137-145) mmol/L Potassium 5.5 H (3.5-5.1) mmol/L Chloride 105 (98-107) mmol/L Carbon Dioxide 23 (22-30) mmol/L BUN 16 (9-20) mg/dL Creatinine 1.75 H (0.66-1.25) mg/dL Glucose 99 (74-99) mg/dL Calcium 9.8 (8.4-10.2) mg/dL AST 34 (17-59) U/L ALT 18 (4-49) U/L Alkaline Phosphatase 83 (38-126) U/L Total Protein 7.7 (6.3-8.2) g/dL Albumin 4.7 (3.5-5.0) g/dL Calcium panel 11/03/23 Range/Units 18:36 Calcium 9.8 (8.4-10.2) mg/dL Phosphorus 4.8 H (2.5-4.5) mg/dL Albumin 4.7 (3.5-5.0) g/dL Pituitary panel 11/03/23 Range/Units 18:36 Sodium 138 (137-145) mmol/L Potassium 5.5 H (3.5-5.1) mmol/L Chloride 105 (98-107) mmol/L Carbon Dioxide 23 (22-30) mmol/L BUN 16 (9-20) mg/dL Creatinine 1.75 H (0.66-1.25) mg/dL Glucose 99 (74-99) mg/dL Calcium 9.8 (8.4-10.2) mg/dL Adrenal panel 11/03/23 Range/Units 18:36 Sodium 138 (137-145) mmol/L Potassium 5.5 H (3.5-5.1) mmol/L Chloride 105 (98-107) mmol/L Carbon Dioxide 23 (22-30) mmol/L BUN 16 (9-20) mg/dL Creatinine 1.75 H (0.66-1.25) mg/dL Glucose 99 (74-99) mg/dL Calcium 9.8 (8.4-10.2) mg/dL Total Bilirubin 0.5 (0.2-1.3) mg/dL AST 34 (17-59) U/L ALT 18 (4-49) U/L Alkaline Phosphatase 83 (38-126) U/L Total Protein 7.7 (6.3-8.2) g/dL Albumin 4.7 (3.5-5.0) g/dL Assessment and Plan Assessment: - Acute right femoral tibial bypass thrombosis - Critical limb ischemia right lower extremity - History of right femoral tibial bypass - History of right anterior hip surgery Plan: Reviewed CTA and thrombosis noted just after the takeoff of the bypass. Recommendation for angiogram and right femoral tibial artery bypass thrombolytic catheter placement for thrombolysis Discussed with patient, consent obtained and questions answered. To the phlebotomy lab assistant for emergent thrombolysis.
[2023-11-04] MEDS: LIDOCAINE 1% INJ 10MG/ML (20 ML MDV) SQ ONE ×2 (09:38→18:46)
[2023-11-04] MEDS: IV FLUID CONTINUATION 1,000 ML IV ONE ×2 (09:40→18:42)
[2023-11-04] MEDS: HEPARIN SOD,PORK IN 0.45% NACL 25,000 UNIT in 0.45% NACL 1 250ML.BAG IV SCH (09:58)
[2023-11-04] MEDS: ALTEPLASE 6 MG in SODIUM CHLORIDE 0.9% 144 ML IV ONE (09:58)
--- NOTE | 2023-11-04 10:10 | P.OP ---
Date of Procedure: 11/04/23 Preoperative Diagnosis: Acute right lower extremity femoral tibial bypass thrombosis Right lower extremity critical limb ischemia Postoperative Diagnosis: Same Procedure(s) Performed: Ultrasound-guided left common femoral artery access Selective right lower extremity angiogram third order Placement of thrombolytic catheter at the femoral-tibial bypass and initiation of thrombolysis Anesthesia: local Surgeon: Chris Lemus Estimated Blood Loss (ml): 5 Pathology: none sent Condition: stable Indications for Procedure: 63-year-old gentleman with history of right lower extremity femoral-tibial bypass with CryoVein presented to the emergency department secondary to acute occlusion of his right lower extremity bypass as well as increased numbness and severe pain in his right calf. He was found to have thrombosed bypass on CT angiogram and presents for thrombolytic catheter placement. Description of Procedure: After written and informed consent was obtained for the patient and all risk, benefits and complications were described the patient was brought to the Be[employer] Operator and laid in the supine position. The area of the left groin was prepped and draped in usual sterile fashion. Local anesthetic was then infused overlying the left common femoral artery which was visualized under ultrasound guidance and shown to be patent without any significant plaque or thrombus. Under ultrasound guidance a micro access needle was utilized and a 6 Sinhala sheath was placed. 035 Glidewire advantage was then placed into the aorta followed by a RBI catheter and in an up and over fashion the right common iliac and external iliac artery was accessed. The 6 Sinhala 55 cm sheath was then guided in an up and over fashion to the common femoral artery. Selective angiogram was then obtained demonstrating takeoff of the bypass with sharp thrombosis noted. Utilizing the 035 Glidewire advantage and a quick cross catheter the bypass was entered and directed towards the distal anastomosis. Utilizing a crossing catheter the distal vessels were accessed. Wire was removed and distal angiogram was obtained demonstrating good brisk flow and intraluminal access of the tibial vessel. Glidewire advantage was then placed once again and an EKOS catheter 50 cm was then guided and placed at the proximal anastomosis extending distally into the bypass. Thrombolysis was then initiated. The sheath was then sutured in place with silk suture. The skin was cleansed and dressings were placed. The patient tolerated the procedure well and was sent to ICU for continued thrombolytic therapy. He will be rechecked later today versus tomorrow depending on flow through the bypass.
[2023-11-04] MEDS: IOPAMIDOL-250 100ML BTL INTRAARTER ONE (10:15)
[2023-11-04 10:39] LABS: Glucose,Whole Blood 101 mg/dL (70-110)
--- NOTE | 2023-11-04 11:40 | IR ---
EXAMINATION TYPE: IR transcath infusion therapy DATE OF EXAM: 11/04/2023 FLUOROSCOPY 93 images provided. Right leg pain, 7.6min, 12.2Gycm2 [facility] Louisa Griggs, , 11/04/2023 11:38 AM
[2023-11-04] MEDS: ALTEPLASE 6 MG in SODIUM CHLORIDE 0.9% 144 ML IV SCH (14:07)
[2023-11-04 14:43] LABS: Anisocytosis Slight; Basophils % (A) 0 %; Eosinophils # (A) 0.2 k/uL (0-0.7); Eosinophils % (A) 2 %; HCT 36.6 % (39.0-53.0); Hypochromasia Marked; Lymphocytes # (A) 0.9 k/uL (1.0-4.8); Lymphocytes % (A) 13 %; MCH 25.9 pg (25.0-35.0); MCHC 30.1 g/dL (31.0-37.0); MCV 86.2 fL (80.0-100.0); Mean Platelet Volume 8.2; Monocytes # (A) 0.3 k/uL (0-1.0); Monocytes % (A) 5 %; Neutrophils # (A) 5.6 k/uL (1.3-7.7); Neutrophils % (A) 78 %; Platelet Count 224 k/uL (150-450); RBC 4.25 m/uL (4.30-5.90); RDW 18.8 % (11.5-15.5); WBC 7.1 k/uL (3.8-10.6)
[2023-11-04 14:52] LABS: INR 0.9 (<1.2); Partial Thromboplastin Time 27.6 sec (22.0-30.0); Prothrombin Time 10.4 sec (10.0-12.5)
[2023-11-04 14:59] LABS: ALT 14 U/L (4-49); AST 24 U/L (17-59); African American GFR (CKD) 71 (>60 ml/min/1.73 sqM); Albumin 3.5 g/dL (3.5-5.0); Alkaline Phosphatase 68 U/L (38-126); Anion Gap 6 mmol/L; Blood Urea Nitrogen 18 mg/dL (9-20); Calcium 8.4 mg/dL (8.4-10.2); Carbon Dioxide 22 mmol/L (22-30); Chloride 107 mmol/L (98-107); Glucose 148 mg/dL (74-99); Magnesium 2.1 mg/dL (1.6-2.3); Non-African American GFR(CKD) 62 (>60 ml/min/1.73 sqM); Potassium 4.2 mmol/L (3.5-5.1); Sodium 135 mmol/L (137-145); Total Bilirubin 0.4 mg/dL (0.2-1.3); Total Protein 5.9 g/dL (6.3-8.2)
[2023-11-04 16:39] LABS: Glucose,Whole Blood 142 mg/dL (70-110)
--- NOTE | 2023-11-04 16:47 | P.PN ---
Subjective Progress Note Date: 11/04/23 63-year-old male with PMH of PAD status post right femoral to anterior tibial artery bypass, chronic ulcers, paroxysmal atrial fibrillation, infrarenal abdominal aortic aneurysm, hypertension, diabetes mellitus, and nicotine dependence. He presents back to the ED for sudden onset pain numbness and cold right foot that started on the day of admission. He was admitted on 11/13/2022 after he presented with chronic right lower extremity pain and underwent a CTA with runoff which revealed occlusion of the left superficial femoral artery as well as right superficial femoral artery which does not reconstitute to past the popliteal artery bifurcation. He underwent thrombolytic catheter within femoral tibial bypass and initiation of thrombolysis with Alteplase with Dr. Lemus on 11/14. He was discharged on 11/17 on Plavix and Xarelto which he has been compliant with. He continued to smoke half pack of cigarettes daily. In the ED he underwent extensive evaluation. BP 164/72, HR 105, T 97.9, RR 20, 99% on RA. CBC, Coag panel, CMP significant for Hg 12.5, PT 9.9, K 5.5, Cr 1.75. Lactic acid 1.2. Phos 4.8. Troponin < 0.012. BNP 7078. UA trace protein. EKG sinus rhythm with PVC, RBBB, left anterior fascicular block, Q waves in V1 V2. Venous doppler negative DVT. CTA confirmed occlusion on the new graft that was placed during his previous admission. He was started on a Heparin drip and admitted for Vascular surgery consultation. 11/03 Patient was seen and examined. He was taken to the OR for RLE angiogram and placement of EKOS catheter at the fem-tibial bypass for initiation of thrombolysis. Currently with heparin infusing through the EKOS catheter. He reports feeling more blood rushing to the RLE. CBC, CMP and Coag panel significant for RBC 4.25, Hg 11, Hct 36.6, Na 135, glu 148, total protein 5.9. Vital signs reviewed and stable. General: Nontoxic, no distress and appears stated age. Derm: Skin warm and dry, normal coloration for ethnicity. Patient with moderate venous discoloration of bilateral lower extremity with chronic wound/ulcer left lateral ankle Head: Atraumatic, normocephalic and symmetric. Eyes: EOMs intact, no lid lag, and anicteric sclera Cardiovascular: regular rate and rhythm with normal S1S2, no murmur Lungs: Respirations even, regular, and unlabored on room air. Lungs CTA bilaterally, no rhonchi, no rales, no wheezing, and no accessory muscle usage. Ext: ROM intact. No gross muscle atrophy, no edema, no contractures Neuro: Speech clear, face symmetrical and no noted focal neuro deficits Psych: Alert and oriented to person, place, time, and situation. Appropriate and pleasant affect. Based on my assessment of this patient, this patient meets a high complexity level of care. Peripheral artery disease with claudication and occlusion: Continue tPA infusion. Monitor APTT. Vascular surgery on board. ASA 325 mg PO QD. Plavix 75 mg PO QD. Lipitor 20 mg PO QHS. Morphine 4 mg IV Q4H PRN pain. Critical limb ischemia due to above and findings on CTA Chronic venous ulcers Paroxysmal atrial fibrillation: Metoprolol 25 mg PO QD. Heparin drip for AC. Infrarenal abdominal aortic aneurysm Hypertension: Metoprolol as above. BPH: Flomax 0.8 mg PO QD. Nicotine dependence Resolved: RUBEN, Hyperkalemia CODE STATUS: FULL CODE DVT Prophylaxis: Heparin drip GI Prophylaxis: Protonix PO Designated medical POA if patient is not able to make medical decisions for themselves: I have reviewed the following senior solutions workflow consultant notes: Vascular surgery I have reviewed the results of the following tests: CBC, CMP, Coag panel I have ordered the following tests: APTT daily I have discussed the care of this patient with the following independent historian: AIMEE I have independently interpreted the following test below: I have discussed the management of this patient with the following physician: Objective - Vital Signs Vital signs: Vital Signs Temp 98 F 11/04/23 07:48 Pulse 70 11/04/23 07:48 Resp 20 11/04/23 07:48 BP 169/100 11/04/23 07:48 Pulse Ox 94 L 11/04/23 07:48 FiO2 Intake & Output 11/03/23 11/04/23 11/04/23 18:59 06:59 18:59 Intake Total 72.896 Balance 72.896 Weight 74.843 kg Intake: Intake, IV Titration 72.896 Amount Heparin Sod,Pork in 0.45% 72.896 NaCl 25,000 unit In 0.45 % NaCl 1 250ml.bag @ 12 UNITS/KG/HR 8.981 mls/hr IV .Q24H [facility] Rx#: [id number] - Labs CBC & Chem 7: 11/04/23 14:23 11/04/23 14:23 Labs: Abnormal Lab Results - Last 24 Hours (Table) 11/03/23 11/03/23 11/03/23 Range/Units 18:36 18:36 18:36 Hgb 12.5 L (13.0-17.5) gm/dL RDW 18.9 H (11.5-15.5) % Neutrophils # 8.3 H (1.3-7.7) k/uL Lymphocytes # 0.9 L (1.0-4.8) k/uL PT 9.9 L (10.0-12.5) sec APTT (22.0-30.0) sec Potassium (3.5-5.1) mmol/L Creatinine (0.66-1.25) mg/dL Phosphorus (2.5-4.5) mg/dL Urine Protein Trace H (Negative) 11/03/23 11/04/23 Range/Units 18:36 01:52 Hgb (13.0-17.5) gm/dL RDW (11.5-15.5) % Neutrophils # (1.3-7.7) k/uL Lymphocytes # (1.0-4.8) k/uL PT (10.0-12.5) sec APTT 35.4 H (22.0-30.0) sec Potassium 5.5 H (3.5-5.1) mmol/L Creatinine 1.75 H (0.66-1.25) mg/dL Phosphorus 4.8 H (2.5-4.5) mg/dL Urine Protein (Negative)
[2023-11-04] MEDS: IOPAMIDOL-370 100ML BTL INJ ONE (18:42)
[2023-11-04] MEDS: HYDROmorphone 0.5 MG/0.5 ML SYRINGE IVP ONE (18:53)
--- NOTE | 2023-11-04 19:08 | P.OP ---
Date of Procedure: 11/04/23 Preoperative Diagnosis: Right lower extremity thrombosed femoral-tibial bypass graft Critical limb ischemia with current thrombolytic therapy Postoperative Diagnosis: Same Resolved thrombosis with one-vessel runoff to the ankle via the anterior tibial Procedure(s) Performed: Right lower extremity selective angiogram via existing catheter Percutaneous closure of the left common femoral artery access Anesthesia: local Surgeon: Chris Lemus Estimated Blood Loss (ml): 5 Pathology: none sent Condition: stable Disposition: ICU Indications for Procedure: 63-year-old gentleman who is currently receiving thrombolytic therapy to the right lower extremity due to thrombosis of his existing femoral-tibial bypass graft presents back to the [facility] for reevaluation and possible balloon angioplasty. Operative Findings: Completely resolved from [place] of the femoral-tibial bypass without any evidence of proximal or distal stenosis. One-vessel runoff to the ankle via the anterior tibial artery Description of Procedure: After written and informed consent was obtained for the patient and all risk, benefits and complications were described the procedures performed in the [facility]. The area of the existing catheter was prepped and draped in usual sterile fashion. Timeout was performed in normal fashion. Utilizing the existing sheath a selective angiogram was performed of the right lower extremity demonstrating what appeared to be resolution of the thrombosis of the femoral- tibial bypass. The ultrasonic inner wire was then removed and via the EKOS catheter a distal angiogram was obtained demonstrating brisk flow through the bypass without any evidence of stenosis at the distal anastomosis with one- vessel runoff to the foot with good filling of the foot to the distal toes. The sheath was then withdrawn and a distal aortogram and iliac angiogram was performed demonstrating no significant stenosis. There is aneurysmal disease noted at the distal aorta which is known. All guidewires and catheters were then removed. The long 6 Croatian sheath was removed over a wire and replaced with a short 6 Croatian sheath and a Vascade was placed in normal fashion for hemostasis. Pressure was then placed for 5 minutes with good hemostasis obtained. The area was then cleansed and dressings were placed. Patient tolerated the procedure well and had a palpable pulse within the bypass as well as at the right dorsalis pedis and palpable DP and PT pulse of the left. Patient will be sent back to the ICU for continued recovery and okay to transition to oral anticoagulation. Will likely discharge tomorrow.
[2023-11-04 19:20] LABS: Glucose,Whole Blood 94 mg/dL (70-110)
[2023-11-04] MEDS: ATORVASTATIN 20 MG TAB PO SCH (20:41)
[2023-11-04 20:58] LABS: Glucose,Whole Blood 113 mg/dL (70-110)
[2023-11-04] MEDS: RIVAROXABAN 20 MG TAB PO SCH (21:36)
[2023-11-05] MEDS: ZOLPIDEM 5 MG TAB PO PRN (00:25)
[2023-11-05 04:03] LABS: Anisocytosis Slight; HCT 34.1 % (39.0-53.0); HGB 10.8 gm/dL (13.0-17.5); Hypochromasia Moderate; MCH 26.9 pg (25.0-35.0); MCHC 31.8 g/dL (31.0-37.0); MCV 84.5 fL (80.0-100.0); Mean Platelet Volume 9.6; Microcytosis Slight; Platelet Count 185 k/uL (150-450); RBC 4.03 m/uL (4.30-5.90); RDW 18.8 % (11.5-15.5); WBC 8.8 k/uL (3.8-10.6)
[2023-11-05 04:25] LABS: African American GFR (CKD) >90 (>60 ml/min/1.73 sqM); Anion Gap 5 mmol/L; Blood Urea Nitrogen 14 mg/dL (9-20); Calcium 8.3 mg/dL (8.4-10.2); Carbon Dioxide 21 mmol/L (22-30); Chloride 106 mmol/L (98-107); Glucose 96 mg/dL (74-99); Non-African American GFR(CKD) 86 (>60 ml/min/1.73 sqM); Potassium 4.2 mmol/L (3.5-5.1); Sodium 132 mmol/L (137-145)
[2023-11-05 06:55] LABS: Glucose,Whole Blood 121 mg/dL (70-110)
--- NOTE | 2023-11-05 08:59 | P.PN ---
Subjective Progress Note Date: 11/05/23 Principal diagnosis: Acute limb ischemia, right fem-tib bypass thrombosis Patient is seen and examined today as a follow-up. States pain has improved. Still has some numbness tingling of both feet which she states is chronic from peripheral neuropathy. He is status post tPA administration to the right lower extremity with patent graft. Denies any shortness of breath or chest pain. Denies any bleeding from left groin access site. Objective - Vital Signs Vital signs: Vital Signs Temp 99.0 F 11/05/23 04:00 Pulse 77 11/05/23 06:00 Resp 12 11/05/23 06:00 BP 167/112 11/05/23 06:00 Pulse Ox 95 11/05/23 04:00 FiO2 Intake & Output 11/04/23 11/05/23 11/05/23 18:59 06:59 18:59 Intake Total 925 75 Output Total 800 950 Balance 125 -875 Weight 74.843 kg 81.9 kg Intake: IV 575 75 0.9 525 75 Oral 350 Output: Urine 800 950 Other: Voiding Method Urinal Urinal # Voids 1 - Exam General appearance: The patient is alert, oriented, appears in no acute distress. HET: Head is normocephalic and atraumatic. Neck: Supple. Heart: Regular. Lungs: Equal expansion, normal respiratory effort. Abdomen: Soft, nontender, nondistended. Extremities: Normal skin color and turgor. Right palpable fem-tib graft, palpable PT and DP pulse. Left groin access site without any bleeding or hem atoma. Palpable left PT pulse, positive DP Doppler signal. Neurological: No focal deficits. Strength and sensation are grossly intact. - Labs CBC & Chem 7: 11/05/23 03:51 11/05/23 03:51 Labs: Abnormal Lab Results - Last 24 Hours (Table) 11/04/23 11/04/23 11/04/23 Range/Units 14:23 14:23 16:37 RBC 4.25 L (4.30-5.90) m/uL Hgb 11.0 L (13.0-17.5) gm/dL Hct 36.6 L (39.0-53.0) % MCHC 30.1 L (31.0-37.0) g/dL RDW 18.8 H (11.5-15.5) % Lymphocytes # 0.9 L (1.0-4.8) k/uL Sodium 135 L (137-145) mmol/L Carbon Dioxide (22-30) mmol/L Glucose 148 H (74-99) mg/dL POC Glucose (mg/dL) 142 H (70-110) mg/dL Calcium (8.4-10.2) mg/dL Total Protein 5.9 L (6.3-8.2) g/dL 11/04/23 11/05/23 11/05/23 Range/Units 20:56 03:51 03:51 RBC 4.03 L (4.30-5.90) m/uL Hgb 10.8 L (13.0-17.5) gm/dL Hct 34.1 L (39.0-53.0) % MCHC (31.0-37.0) g/dL RDW 18.8 H (11.5-15.5) % Lymphocytes # (1.0-4.8) k/uL Sodium 132 L (137-145) mmol/L Carbon Dioxide 21 L (22-30) mmol/L Glucose (74-99) mg/dL POC Glucose (mg/dL) 113 H (70-110) mg/dL Calcium 8.3 L (8.4-10.2) mg/dL Total Protein (6.3-8.2) g/dL 11/05/23 Range/Units 06:54 RBC (4.30-5.90) m/uL Hgb (13.0-17.5) gm/dL Hct (39.0-53.0) % MCHC (31.0-37.0) g/dL RDW (11.5-15.5) % Lymphocytes # (1.0-4.8) k/uL Sodium (137-145) mmol/L Carbon Dioxide (22-30) mmol/L Glucose (74-99) mg/dL POC Glucose (mg/dL) 121 H (70-110) mg/dL Calcium (8.4-10.2) mg/dL Total Protein (6.3-8.2) g/dL Assessment and Plan Assessment: 1. Right femoral tibial bypass graft thrombosis status post tPA administration 2. Right lower extremity critical limb ischemia 3. History of peripheral arterial disease with previous fem-tib bypass 4. Recent history of right anterior hip surgery Plan: 1. Encourage patient to ambulate 2. Continue anticoagulation with Xarelto 20 mg daily, Plavix 75 mg daily 3. Address elevated blood pressures with primary medical team 4. Patient is cleared from vascular surgery for discharge follow-up with Dr. Lemus in 2 weeks Thank you for this consultation, we will continue to follow. The impression and plan of care has been dictated as directed. I performed a history and examination of this patient, discussed the same with the dictator. I agree with the dictator's note ,documented as a scribe. Any additional findings or plans will be noted.
[2023-11-05 10:06] VITALS: TEMP 98.2
[2023-11-05 11:30] LABS: Glucose,Whole Blood 100 mg/dL (70-110)
[2023-11-05 13:45] VITALS: BP 160/91; PULSE 70; RESP 18
--- NOTE | 2023-11-05 14:48 | P.DS ---
Providers Date of admission: 11/03/23 19:40 Expected date of discharge: 11/05/23 Attending physician: Jose Kebede MD Consults: 11/03/23 19:40 Consult Physician Routine Consulting Provider: Chris Lemus Consult Reason/Comments: arterial occlusion Do you want consulting provider notified?: Yes Primary care physician: [facility] Hospital Course: Discharge Diagnosis: Peripheral arterial disease, symptomatic Critical limb ischemia Chronic venous ulcers Paroxysmal atrial fibrillation Infrarenal abdominal aortic aneurysm Hypertension BPH Nicotine dependence RUBEN Hyperkalemia Type 2 diabetes Hospital Course: 63-year-old male with PMH of PAD status post right femoral to anterior tibial artery bypass, chronic ulcers, paroxysmal atrial fibrillation, infrarenal abdominal aortic aneurysm, hypertension, diabetes mellitus, and nicotine dependence. He presents back to the ED for sudden onset pain numbness and cold right foot that started on the day of admission. He was recently admitted after he presented with chronic right lower extremity pain and underwent a CTA with runoff which revealed occlusion of the left superficial femoral artery as well as right superficial femoral artery which does not reconstitute to past the popliteal artery bifurcation. He underwent thrombolytic catheter within femoral tibial bypass and initiation of thrombolysis with Alteplase with Dr. Lemus. He was discharged on Plavix and Xarelto which he has been compliant with. In the ED he underwent extensive evaluation. BP 164/72, HR 105, T 97.9, RR 20, 99% on RA. CBC, Coag panel, CMP significant for Hg 12.5, PT 9.9, K 5.5, Cr 1.75. Lactic acid 1.2. Phos 4.8. Troponin < 0.012. BNP 7078. UA trace protein. EKG sinus rhythm with PVC, RBBB, left anterior fascicular block, Q waves in V1 V2. Venous doppler negative DVT. CTA confirmed occlusion on the new graft that was placed during his previous admission. He was started on a Heparin drip and admitted for Vascular surgery consultation. Underwent right lower extremity selective angiogram, received thrombolytic therapy for his existing femoral-tibial bypass graft. Patient now stable able to ambulate. Being discharged home with close follow-up with vascular surgery. Patient seen and examined at bedside. Vital signs reviewed and stable. General: Nontoxic, no distress, appears at stated age Derm: Warm, dry groin site looks clean, dry, intact Head: Atraumatic, normocephalic, symmetric Eyes: EOMI, no lid lag, anicteric sclera Mouth: No lip lesion, mucus membranes moist Cardiovascular: S1S2 reg, no murmur Lungs: CTA bilateral, no rhonchi, no rales, no accessory muscle use Abdominal: Soft, nontender to palpation, no guarding, no appreciable organomegaly Ext: No gross muscle atrophy, no edema, no contractures Neuro: CN II-XI grossly intact, no focal neuro deficits Psych: Alert, oriented, appropriate affect A total of 33 minutes of time were spent preparing this complex discharge summar y. Patient was discharged on. Patient Condition at Discharge: Stable Plan - Discharge Summary Discharge Rx Participant: Yes New Discharge Prescriptions: New Rivaroxaban [Xarelto] 20 mg PO W/SUPPER tab Continue Tamsulosin [Flomax] 0.8 mg PO DAILY metFORMIN HCL [Glucophage] 500 mg PO BID Losartan [Cozaar] 50 mg PO DAILY Clopidogrel [Plavix] 75 mg PO DAILY #90 tab FLUoxetine HCL [PROzac] 20 mg PO DAILY Ferrous Sulfate [Iron (65 MG Elemental)] 325 mg PO BID #60 tab polyethylene glycoL 3350 [Miralax] 17 gm PO DAILY PRN #21 packet PRN Reason: Constipation Pantoprazole [Protonix] 40 mg PO AC-BRKFST 90 Days #90 tab Metoprolol Tartrate [Lopressor] 25 mg PO DAILY traZODone HCL [Desyrel] 100 mg PO HS Atorvastatin [Lipitor] 20 mg PO HS Cholecalciferol (Vitamin D3) [Vitamin D3 (125 MCG = 5,000 IU)] 125 mcg PO DAILY Sennosides/Docusate Sodium [Senna-S 8.6-50 mg Tablet] 2 each PO DAILY PRN #30 tablet PRN Reason: Constipation HYDROcodone/APAP 7.5-325MG [[place] 7.5-325] 1 tab PO Q8H PRN PRN Reason: Pain Discontinued Aspirin EC [Ecotrin] 325 mg PO DAILY Rivaroxaban [Xarelto] 20 mg PO DAILY Discharge Medication List Losartan [Cozaar] 50 mg PO DAILY 09/09/22 [History] Metoprolol Tartrate [Lopressor] 25 mg PO DAILY 09/09/22 [History] Tamsulosin [Flomax] 0.8 mg PO DAILY 09/09/22 [History] metFORMIN HCL [Glucophage] 500 mg PO BID 09/09/22 [History] Atorvastatin [Lipitor] 20 mg PO HS 11/13/22 [History] traZODone HCL [Desyrel] 100 mg PO HS 11/13/22 [History] Clopidogrel [Plavix] 75 mg PO DAILY #90 tab 05/17/23 [Rx] Cholecalciferol (Vitamin D3) [Vitamin D3 (125 MCG = 5,000 IU)] 125 mcg PO DAILY 09/10/23 [History] FLUoxetine HCL [PROzac] 20 mg PO DAILY 09/10/23 [History] Ferrous Sulfate [Iron (65 MG Elemental)] 325 mg PO BID #60 tab 09/13/23 [Rx] Pantoprazole [Protonix] 40 mg PO AC-BRKFST 90 Days #90 tab 09/13/23 [Rx] Sennosides/Docusate Sodium [Senna-S 8.6-50 mg Tablet] 2 each PO DAILY PRN #30 tablet 09/13/23 [Rx] polyethylene glycoL 3350 [Miralax] 17 gm PO DAILY PRN #21 packet 09/13/23 [Rx] HYDROcodone/APAP 7.5-325MG [[place] 7.5-325] 1 tab PO Q8H PRN 11/03/23 [History] Rivaroxaban [Xarelto] 20 mg PO W/SUPPER tab 11/05/23 [Rx] Follow up Appointment(s)/Referral(s): Chris Lemus DO [STAFF PHYSICIAN] - 2 Weeks [facility] Provider[facility] - 1-2 days Patient Instructions/Handouts: Peripheral Vascular Disease (DC) Activity/Diet/Wound Care/Special Instructions: Please see your vascular surgeon Discharge Disposition: HOME SELF-CARE
--- NOTE | 2023-11-21 22:36 | IR ---
EXAMINATION TYPE: IR angio lower extremity LT DATE OF EXAM: 11/04/2023 7:30 PM COMPARISON: Pre Operative Images if available both CT/MRI or plain film CLINICAL INDICATION: Male, 63 years old with history of TPA Recheck, 0.6min fluoro, 9.16Gvig5; TECHNIQUE: IR angio lower extremity LT, multiple fluoroscopic images provided for procedure. Total fluoroscopy time: 0.6 min Total submitted images to PACS: 180 DAP: 0.352 mGym2 Gycm2 uGym2 cGycm2 or equivalent. IMPRESSION: 1. Report was generated for administrative purposes only. 2. Please see the operative/procedural note for further details. [facility], , 11/21/2023 10:33 PM
== END 2023-11-05 15:33 | disposition home or self-care (01) | DRG 181 ==
LOC: EC 17:27 → 3SCARD 19:40 → 2SICU 11-04 09:13
PROVIDERS: ADMIT Internal Medicine; ATTEND Internal Medicine
PROC: B41F1ZZ Fluoroscopy of Right Lower Extremity Arteries using Low Osmolar Contrast (ICD-10-PCS; principal; 2023-11-04 09:07)
PROC: 04FK3Z0 Fragmentation of Right Femoral Artery, Percutaneous Approach, Ultrasonic (ICD-10-PCS; principal; 2023-11-04 09:07)
PROC: 04F Lower Arteries, Fragmentation (ICD-10-PCS; principal; 2023-11-04 09:07)
PROC: 3E05317 Introduction of Other Thrombolytic into Peripheral Artery, Percutaneous Approach (ICD-10-PCS; principal; 2023-11-04 09:07)
DX: T82.868A Thrombosis due to vascular prosthetic devices, implants and grafts, initial encounter (principal); I71.43 Infrarenal abdominal aortic aneurysm, without rupture; I74.3 Embolism and thrombosis of arteries of the lower extremities; I83.90 Asymptomatic varicose veins of unspecified lower extremity; L97.329 Non-pressure chronic ulcer of left ankle with unspecified severity; N17.9 Acute kidney failure, unspecified; N40.0 Benign prostatic hyperplasia without lower urinary tract symptoms; Y83.2 Surgical operation with anastomosis, bypass or graft as the cause of abnormal reaction of the patient, or of later complication, without mention of misadventure at the time of the procedure; I70.221 Atherosclerosis of native arteries of extremities with rest pain, right leg; I50.22 Chronic systolic (congestive) heart failure; I48.0 Paroxysmal atrial fibrillation; I45.2 Bifascicular block; I42.9 Cardiomyopathy, unspecified; I11.0 Hypertensive heart disease with heart failure; F41.9 Anxiety disorder, unspecified; F17.210 Nicotine dependence, cigarettes, uncomplicated; E87.5 Hyperkalemia; E78.5 Hyperlipidemia, unspecified; E11.51 Type 2 diabetes mellitus with diabetic peripheral angiopathy without gangrene; E11.40 Type 2 diabetes mellitus with diabetic neuropathy, unspecified; Z79.01 Long term (current) use of anticoagulants; Z79.02 Long term (current) use of antithrombotics/antiplatelets; Z79.82 Long term (current) use of aspirin; Z79.84 Long term (current) use of oral hypoglycemic drugs; Z79.899 Other long term (current) drug therapy; Z86.14 Personal history of Methicillin resistant Staphylococcus aureus infection; Z28.310 Unvaccinated for COVID-19; Z28.21 Immunization not carried out because of patient refusal
CPT/HCPCS: 36415; 37211; 37214; 75635; 75710; 76937; 80048; 80053; 81003; 83036; 83605; 83735; 83880; 84100; 84484; 85025; 85027; 85384; 85610; 85730; 93005; 96365; 96366; 96375; 99291

== ENCOUNTER → 2024-02-07 | Day surgery (SDC) | payer MEDICARE, OTHER ==
[2024-02-06 09:41] VITALS: BMI 25.2
[~2024-02-07] MED LIST changes: -ALPRAZolam 0.25 MG TAB PO PRN; -HEPARIN SODIUM,PORCINE (1 ML) 2,500 UNIT in SODIUM CHLORIDE 0.9% 250 ML IRRIGATION PRN; -HEPARIN SODIUM,PORCINE 10,000 UNIT in SODIUM CHLORIDE 0.9% 1,000 ML IRRIGATION PRN; +LIDOCAINE 1% (10MG/ML) FOR IV START INTRADERMA PRN; +MIDAZOLAM 2 MG/2 ML VIAL IV PRN; +MIDAZOLAM 2 MG/2 ML VIAL ONE; +PHENYLEPHRINE-0.9% NACL SYG 1,000 MCG/10 ML SYRINGE ONE; +PROPOFOL 10 MG/ML 20 ML VIAL IV ONE; +Pre Op ABX Message 1 EACH MISC MISCELLANE ONE; -ZOLPIDEM 5 MG TAB PO PRN; +fentaNYL (PF) 50 MCG/ML 2 ML AMP IVP PRN; +fentaNYL (PF) 50 MCG/ML 2 ML AMP ONE
[2024-02-07] MEDS: IV FLUID CONTINUATION 1,000 ML IV ONE ×2 (11:41→15:20)
[2024-02-07 11:57] VITALS: TEMP 97.4
[2024-02-07] MEDS: ONDANSETRON 4 MG/2 ML VIAL IVP ONE (12:13)
[2024-02-07] MEDS: LACTATED RINGERS 1,000 ML IV SCH (12:13)
[2024-02-07] MEDS: DEXAMETHASONE SOD PHOSPHATE 4 MG/ML 1 ML VIAL IV ONE (12:15)
[2024-02-07 12:20] LABS: Glucose,Whole Blood 99 mg/dL (70-110)
[2024-02-07] MEDS: LIDOCAINE 1% INJ 10MG/ML (30 ML VIAL-PF) SQ ONE (12:43)
[2024-02-07] MEDS: HYDROmorphone 0.5 MG/0.5 ML SYRINGE IVP PRN (14:29)
--- NOTE | 2024-02-07 14:56 | P.OP ---
Date of Procedure: 02/07/24 Description of Procedure: Preoperative diagnosis: Severe varicose veins of the bilateral lower extremities with pain, venous insufficiency Postoperative diagnosis: Same Procedure: Stab avulsion phlebectomy right lower extremity varicose veins greater than 20 incisions Surgeon: Karolina Nuno D.O. EBL: 100 cc IV fluids: See records Urine output: Not measured Drains: None Complications: None immediately apparent Condition: Stable to recovery Operative indication and findings: Patient is a 63-year-old male significant arterial and venous. Previous greater saphenous Veins ablated. He continues to have large ropey varicosities bad in both legs. Due to the symptomatology location extremity with the right lower extremity. Risks and benefits were discussed he seemed understanding of the plan and was willing to proceed. Procedure in detail: The patient was taken to the operative suite and placed in supine position. The right lower extremity was prepped and draped in usual sterile fashion. The previously marked veins were identified. A small amount of 1% lidocaine plain was instilled at each of these areas. Small skin incisions were made and utilizing vein hooks and hemostats, the veins were avulsed. At the more proximal portion, the majority of the veins were tied with 3-0 Vicryl. Once completed, the leg was then cleansed and compression dressings were placed. At the conclusion of the procedure, there was a patent and palpable pulse in the lateral bypass. Patient was sent to recovery in stable condition having tolerated the procedure well. Plan - Discharge Summary Discharge Rx Participant: Yes New Discharge Prescriptions: No Action Tamsulosin [Flomax] 0.8 mg PO DAILY metFORMIN HCL [Glucophage] 500 mg PO BID Losartan [Cozaar] 50 mg PO DAILY Clopidogrel [Plavix] 75 mg PO DAILY #90 tab FLUoxetine HCL [PROzac] 20 mg PO DAILY Ferrous Sulfate [Iron (65 MG Elemental)] 325 mg PO BID #60 tab Pantoprazole [Protonix] 40 mg PO AC-BRKFST 90 Days #90 tab Metoprolol Tartrate [Lopressor] 25 mg PO DAILY Atorvastatin [Lipitor] 20 mg PO HS Cholecalciferol (Vitamin D3) [Vitamin D3 (125 MCG = 5,000 IU)] 125 mcg PO DAILY Rivaroxaban [Xarelto] 20 mg PO W/SUPPER tab Discharge Medication List Losartan [Cozaar] 50 mg PO DAILY 09/09/22 [History] Metoprolol Tartrate [Lopressor] 25 mg PO DAILY 09/09/22 [History] Tamsulosin [Flomax] 0.8 mg PO DAILY 09/09/22 [History] metFORMIN HCL [Glucophage] 500 mg PO BID 09/09/22 [History] Atorvastatin [Lipitor] 20 mg PO HS 11/13/22 [History] Clopidogrel [Plavix] 75 mg PO DAILY #90 tab 05/17/23 [Rx] Cholecalciferol (Vitamin D3) [Vitamin D3 (125 MCG = 5,000 IU)] 125 mcg PO DAILY 09/10/23 [History] FLUoxetine HCL [PROzac] 20 mg PO DAILY 09/10/23 [History] Ferrous Sulfate [Iron (65 MG Elemental)] 325 mg PO BID #60 tab 09/13/23 [Rx] Pantoprazole [Protonix] 40 mg PO AC-BRKFST 90 Days #90 tab 09/13/23 [Rx] Rivaroxaban [Xarelto] 20 mg PO W/SUPPER tab 11/05/23 [Rx] Follow up Appointment(s)/Referral(s): Karolina Nuno DO [STAFF PHYSICIAN] - 2 Weeks Patient Instructions/Handouts: *Surgery [facility] - (Anesthesia) Discharge Instructions Outpatient Surgery Activity/Diet/Wound Care/Special Instructions: Resume regular diet. Resume regular home medications including blood thinners as prescribed. Maintain dressing and compression wrap to right lower extremity x 3 days. May shower once wrap is off. Continue to wear compression stocking or sleeve following this. Apply pressure as needed to the small incision sites. No heavy lifting. No bathing/soaking. Discharge Disposition: HOME SELF-CARE
[2024-02-07] MEDS: hydrALAZINE HCL 20 MG/ML 1 ML VIAL IVP ONE (15:37)
[2024-02-07 15:43] VITALS: RESP 14
[2024-02-07 15:55] VITALS: BP 169/87; PULSE 83
[2024-02-07 16:14] LABS: Glucose,Whole Blood 112 mg/dL (70-110)
== END | disposition home or self-care (01) ==
LOC: OR 10:17
PROVIDERS: ATTEND Surgery
DX: I83.813 Varicose veins of bilateral lower extremities with pain (principal); I87.2 Venous insufficiency (chronic) (peripheral); I10 Essential (primary) hypertension; E78.5 Hyperlipidemia, unspecified; I25.10 Atherosclerotic heart disease of native coronary artery without angina pectoris; F17.210 Nicotine dependence, cigarettes, uncomplicated; I48.91 Unspecified atrial fibrillation; N40.1 Benign prostatic hyperplasia with lower urinary tract symptoms; F32.A Depression, unspecified; F41.9 Anxiety disorder, unspecified; Z79.02 Long term (current) use of antithrombotics/antiplatelets; Z79.01 Long term (current) use of anticoagulants; Z79.84 Long term (current) use of oral hypoglycemic drugs; Z79.899 Other long term (current) drug therapy
CPT/HCPCS: 37766; J2250; J0360; J1100; J2405; J2003; J3010; J2704; J1171; J2371

== ENCOUNTER 2024-02-16 06:04 | Inpatient (IN) | payer MEDICARE, OTHER ==
--- NOTE | 2024-02-16 07:58 | ED ---
General Adult HPI - General Chief complaint: Extremity Problem,Nontraumatic Stated complaint: L leg issue Time Seen by Provider: 02/16/24 07:57 Source: patient, RN notes reviewed Mode of arrival: ambulatory Limitations: no limitations - History of Present Illness Initial comments: 63-year-old male presents to the emergency department for evaluation of left lower extremity pain mostly located in the left calf. Patient reports a history of stenting in his left leg by Dr. Shaikh. He does report that he is supposed to be on blood thinners but has been off of them for vein stripping procedure on the right leg that he underwent recently. He does admit to some tingling in his toes and foot. He states that the pain is worse with standing and walking. He denies recent fever, chills, redness. - Related Data Home Medications Medication Instructions Recorded Confirmed Metoprolol Tartrate [Lopressor] 25 mg PO DAILY 09/09/22 02/16/24 Tamsulosin [Flomax] 0.8 mg PO DAILY 09/09/22 02/16/24 metFORMIN HCL [Glucophage] 500 mg PO BID 09/09/22 02/16/24 Cholecalciferol (Vitamin D3) 125 mcg PO DAILY 09/10/23 02/16/24 [Vitamin D3 (125 MCG = 5,000 IU)] FLUoxetine HCL [PROzac] 20 mg PO DAILY 09/10/23 02/16/24 Pantoprazole [Protonix] 40 mg PO DAILY 02/16/24 02/16/24 Previous Rx's Medication Instructions Recorded Acetaminophen Tab [Tylenol] 650 mg PO Q6HR PRN tab 02/19/24 Atorvastatin [Lipitor] 40 mg PO HS #30 tab 02/19/24 Clopidogrel [Plavix] 75 mg PO DAILY #30 tab 02/19/24 Losartan [Cozaar] 100 mg PO DAILY #60 tab 02/19/24 Rivaroxaban [Xarelto] 20 mg PO W/SUPPER #30 tab 02/19/24 Allergies Allergy/AdvReac Type Severity Reaction Status Date / Time No Known Allergies Allergy Verified 02/16/24 06:10 Review of Systems ROS Statement: Those systems with pertinent positive or pertinent negative responses have been documented in the HPI. ROS Other: All systems not noted in ROS Statement are negative. Past Medical History Past Medical History: Atrial Fibrillation, Diabetes Mellitus, Deep Vein Thrombosis (DVT), Hyperlipidemia, Hypertension, Prostate Disorder, Sleep Apnea/CPAP/BIPAP, Vascular Disorder Additional Past Medical History / Comment(s): Hx "mini heart attack/scarring long time ago". Cardiomyopathy. PAD. Varicose veins. Enlarged prostate. No CPAP use. History of Any Multi-Drug Resistant Organisms: MRSA Date of last positivie culture/infection: 07/05/21 MDRO Source:: Left Ankle Past Surgical History: Heart Catheterization With Stent, Joint Replacement Additional Past Surgical History / Comment(s): Stent to right leg, vein graft right leg, right femoral bypass, stents to left leg, right hip replacement. Past Anesthesia/Blood Transfusion Reactions: No Reported Reaction Date of Last Stent Placement:: Unknown Past Psychological History: Anxiety Smoking Status: Current every day smoker Past Alcohol Use History: Occasional Past Drug Use History: None Reported - Past Family History Mother Family Medical History: Diabetes Mellitus, Hypertension Additional Family Medical History / Comment(s): Family history of varicose veins. Father Family Medical History: CVA/TIA, Myocardial Infarction (GA) General Exam - General Exam Comments Initial Comments: Visual Physical Exam Vital signs reviewed General: Well-appearing, nontoxic, no acute distress. Head: Normocephalic, atraumatic Eyes: PERRLA, EOMI ENT: Airway patent Chest: Nonlabored breathing Skin: No visual rash, normal skin tone Neuro: Alert and oriented 3 Musculoskeletal: No gross abnormalities Limitations: no limitations General appearance: alert, in no apparent distress Head exam: Present: atraumatic, normocephalic, normal inspection Eye exam: Present: normal appearance, PERRL, EOMI. Absent: scleral icterus, conjunctival injection, periorbital swelling Respiratory exam: Present: normal lung sounds bilaterally. Absent: respiratory distress, wheezes, rales, rhonchi, stridor Cardiovascular Exam: Present: regular rate, normal rhythm, normal heart sounds. Absent: systolic murmur, diastolic murmur, rubs, gallop, clicks Extremities exam: Present: full ROM, tenderness, calf tenderness, other (Darkening of the toes of the left foot, paresthesias from the calf down, leg is warm, difficulty palpating DP and PT pulses, Doppler utilized) Neurological exam: Present: alert, oriented X3 Psychiatric exam: Present: normal affect, normal mood Skin exam: Present: warm, dry, intact Course Vital Signs 12/28/24 12/28/24 12/28/24 06:07 13:48 21:23 Temperature 98.3 F 98.4 F Pulse Rate 101 H 70 73 Pulse Rate [ Steam Plant Records Clerk ] Respiratory 20 18 16 Rate Blood Pressure 175/73 175/97 171/95 Blood Pressure [Right Arm] O2 Sat by Pulse 96 97 100 Oximetry 02/16/24 02/17/24 02/17/24 23:00 03:15 04:06 Temperature Pulse Rate Pulse Rate [ 74 75 90 Steam Plant Records Clerk ] Respiratory 18 Rate Blood Pressure Blood Pressure 127/73 152/101 145/87 [Right Arm] O2 Sat by Pulse 95 99 Oximetry 02/17/24 08:20 Temperature Pulse Rate Pulse Rate [ 73 Steam Plant Records Clerk ] Respiratory 16 Rate Blood Pressure Blood Pressure 156/93 [Right Arm] O2 Sat by Pulse 94 L Oximetry Medical Decision Making - Medical Decision Making Quick note preformed and electronically signed by Priyanka Salazar PA-C Was pt. sent in by a medical professional or institution (LADAN Soto, VERTICAL LATHE OPERATOR, urgent care, hospital, or [place] health care facility...) When possible be specific @ -No Did you speak to anyone other than the patient for history (EMS, parent, family, police, friend...)? What history was obtained from this source @ -No Did you review nursing and triage notes (agree or disagree)? Why? @ -I reviewed and agree with nursing and triage notes Were old charts reviewed (outside hosp., previous admission, EMS record, old EK G, old radiological studies, urgent care reports/EKG's, [place] health care facility records)? Report findings @ -No old charts were reviewed Differential Diagnosis (chest pain, altered mental status, abdominal pain women, abdominal pain men, vaginal bleeding, weakness, fever, dyspnea, syncope, headache, dizziness, GI bleed, back pain, seizure, CVA, palpatations, mental health, musculoskeletal)? @ -Differential Musculoskeletal Muscular strain, contusion, ligament sprain, fracture, arthritis, septic arthritis, bursitis, cellulitis, muscle spasm, nerve compression, DVT, arterial occlusion, herpes zoster, electrolyte abnormality, tumor.... This is not meant to be in all inclusive list EKG interpreted by me (3pts min.). @ -none X-rays interpreted by me (1pt min.). @ -None done CT interpreted by me (1pt min.). @ -CT angio of the abdominal aorta with runoff shows New occlusion of the left superficial femoral artery extending to the inferior popliteal artery with reconstitution, tortuosity of the vessels along the leg likely collateral, diminutive anterior and posterior tibial arteries which cross the ankle U/S interpreted by me (1pt. min.). @ -Ultrasound of left lower extremity shows occlusion of the left lower extremity What testing was considered but not performed or refused? (CT, X-rays, U/S, labs)? Why? @ -None What meds were considered but not given or refused? Why? @ -None Did you discuss the management of the patient with other professionals (professionals i.e. Dr., PA, VERTICAL LATHE OPERATOR, lab, RT, psych nurse, social worker palliative care, bed and breakfast innkeeper, teacher, sea air land officer, test case developer)? Give summary @ -Management was discussed with Dr. Nuno who deferred to cardiology as they had done prior stent placement on the leg. Case was discussed with Dr. Spencer patient will be taken for angiography of the lower extremity, made n.p.o. and heparinized Was smoking cessation discussed for >3mins.? @ -No Was critical care preformed (if so, how long)? @ -No Were there social determinants of health that impacted care today? How? (Homelessness, low income, unemployed, alcoholism, drug addiction, transportation, low edu. Level, literacy, decrease access to med. care, senior care, rehab)? @ -No Was there de-escalation of care discussed even if they declined (Discuss DNR or withdrawal of care, Hospice)? DNR status @ -No What co-morbidities impacted this encounter? (DM, HTN, Smoking, COPD, CAD, Cancer, CVA, ARF, Chemo, Hep., AIDS, mental health diagnosis, sleep apnea, morbid obesity)? @ -Peripheral artery disease Was patient admitted / discharged? Hospital course, mention meds given and route, prescriptions, significant lab abnormalities, going to OR and other pertinent info. @ -[Admitted. Patient presented to emergency department for evaluation of left lower extremity pain x 3 days. I initially talked to the patient while in the waiting room and laboratory studies and an ultrasound were obtained. The ultrasound was reviewed showing an occlusion of the stents of the left leg. Patient was later brought back to a hallway bed and evaluated, Doppler was utilized to evaluate pulses which were faint. I discussed the case with Dr. Nuno who initially recommended heparinizing the patient and a CT a with runoff to bilateral lower extremities. Dr. Nuno later called back and recommended input from cardiology as the patient had prior stenting from cardiology in the left leg. CT was performed revealing no occlusion of the left superficial femoral artery extending to the inferior popliteal artery with reconstitution, tortuosity of the vessels of the leg likely collateral, diminutive anterior and posterior tibial arteries which cross ankle. The case was then discussed with Dr. Spencer who states that the patient will be taken for angiography of the right lower extremity. Patient was made n.p.o. Case was discussed with Dr. Ontiveros with [facility] hospitalist who is accepting of the admission. Case is discussed with my attending physician, Dr. Rizo. Undiagnosed new problem with uncertain prognosis? @ -Arterial occlusion of the left leg Drug Therapy requiring intensive monitoring for toxicity (Heparin, Nitro, Insulin, Cardizem)? @ -Heparin Were any procedures done? @ -No Diagnosis/symptom? @ -Left superficial femoral artery occlusion Acute, or Chronic, or Acute on Chronic? @ -Acute Uncomplicated (without systemic symptoms) or Complicated (systemic symptoms)? @ -Complicated Side effects of treatment? @ -No Exacerbation, Progression, or Severe Exacerbation? @ -No Poses a threat to life or bodily function? How? (Chest pain, USA, GA, pneumonia, PE, COPD, DKA, ARF, appy, cholecystitis, CVA, Diverticulitis, Homicidal, Suicidal, threat to staff... and all critical care pts) @ -Threat to limb - Lab Data Result diagrams: 02/19/24 06:03 02/19/24 06:03 Lab Results 02/16/24 02/16/24 02/16/24 Range/Units 08:10 08:10 08:10 WBC 7.6 (3.8-10.6) k/uL RBC 4.69 (4.30-5.90) m/uL Hgb 11.6 L (13.0-17.5) gm/dL Hct 38.1 L (39.0-53.0) % MCV 81.3 (80.0-100.0) fL MCH 24.7 L (25.0-35.0) pg MCHC 30.4 L (31.0-37.0) g/dL RDW 18.6 H (11.5-15.5) % Plt Count 309 (150-450) k/uL MPV 8.0 Neutrophils % 68 % Lymphocytes % 18 % Monocytes % 7 % Eosinophils % 6 % Basophils % 0 % Neutrophils # 5.1 (1.3-7.7) k/uL Lymphocytes # 1.3 (1.0-4.8) k/uL Monocytes # 0.5 (0-1.0) k/uL Eosinophils # 0.4 (0-0.7) k/uL Basophils # 0.0 (0-0.2) k/uL Hypochromasia Moderate Anisocytosis Slight Microcytosis Slight PT (10.0-12.5) sec INR (<1.2) APTT (22.0-30.0) sec Sodium 136 L (137-145) mmol/L Potassium 4.8 (3.5-5.1) mmol/L Chloride 105 (98-107) mmol/L Carbon Dioxide 19 L (22-30) mmol/L Anion Gap 12 mmol/L BUN 13 (9-20) mg/dL Creatinine 1.02 (0.66-1.25) mg/dL Est GFR (CKD-EPI)AfAm >90 (>60 ml/min/1.73 sqM) Est GFR (CKD-EPI)NonAf 79 (>60 ml/min/1.73 sqM) Glucose 100 H (74-99) mg/dL Plasma Lactic Acid Juancarlos 1.6 (0.7-2.0) mmol/L Calcium 10.1 (8.4-10.2) mg/dL Total Bilirubin 0.2 (0.2-1.3) mg/dL AST 39 (17-59) U/L ALT 27 (4-49) U/L Alkaline Phosphatase 81 (38-126) U/L Total Protein 7.2 (6.3-8.2) g/dL Albumin 4.5 (3.5-5.0) g/dL 02/16/24 Range/Units 08:10 WBC (3.8-10.6) k/uL RBC (4.30-5.90) m/uL Hgb (13.0-17.5) gm/dL Hct (39.0-53.0) % MCV (80.0-100.0) fL MCH (25.0-35.0) pg MCHC (31.0-37.0) g/dL RDW (11.5-15.5) % Plt Count (150-450) k/uL MPV Neutrophils % % Lymphocytes % % Monocytes % % Eosinophils % % Basophils % % Neutrophils # (1.3-7.7) k/uL Lymphocytes # (1.0-4.8) k/uL Monocytes # (0-1.0) k/uL Eosinophils # (0-0.7) k/uL Basophils # (0-0.2) k/uL Hypochromasia Anisocytosis Microcytosis PT 9.6 L (10.0-12.5) sec INR 0.8 (<1.2) APTT 23.7 (22.0-30.0) sec Sodium (137-145) mmol/L Potassium (3.5-5.1) mmol/L Chloride (98-107) mmol/L Carbon Dioxide (22-30) mmol/L Anion Gap mmol/L BUN (9-20) mg/dL Creatinine (0.66-1.25) mg/dL Est GFR (CKD-EPI)AfAm (>60 ml/min/1.73 sqM) Est GFR (CKD-EPI)NonAf (>60 ml/min/1.73 sqM) Glucose (74-99) mg/dL Plasma Lactic Acid Juancarlos (0.7-2.0) mmol/L Calcium (8.4-10.2) mg/dL Total Bilirubin (0.2-1.3) mg/dL AST (17-59) U/L ALT (4-49) U/L Alkaline Phosphatase (38-126) U/L Total Protein (6.3-8.2) g/dL Albumin (3.5-5.0) g/dL Disposition Clinical Impression: Superficial femoral artery occlusion Disposition: ADMITTED IP TO [facility] Condition: Stable Is patient prescribed a controlled substance at d/c from ED?: No
[2024-02-16 08:20] LABS: Anisocytosis Slight; Basophils % (A) 0 %; Eosinophils # (A) 0.4 k/uL (0-0.7); Eosinophils % (A) 6 %; HCT 38.1 % (39.0-53.0); HGB 11.6 gm/dL (13.0-17.5); Hypochromasia Moderate; Lymphocytes # (A) 1.3 k/uL (1.0-4.8); Lymphocytes % (A) 18 %; MCH 24.7 pg (25.0-35.0); MCHC 30.4 g/dL (31.0-37.0); MCV 81.3 fL (80.0-100.0); Microcytosis Slight; Monocytes # (A) 0.5 k/uL (0-1.0); Monocytes % (A) 7 %; Neutrophils # (A) 5.1 k/uL (1.3-7.7); Neutrophils % (A) 68 %; Platelet Count 309 k/uL (150-450); RBC 4.69 m/uL (4.30-5.90); RDW 18.6 % (11.5-15.5); WBC 7.6 k/uL (3.8-10.6)
[2024-02-16 08:28] LABS: INR 0.8 (<1.2); Partial Thromboplastin Time 23.7 sec (22.0-30.0); Prothrombin Time 9.6 sec (10.0-12.5)
[2024-02-16 08:32] LABS: ALT 27 U/L (4-49); AST 39 U/L (17-59); African American GFR (CKD) >90 (>60 ml/min/1.73 sqM); Albumin 4.5 g/dL (3.5-5.0); Alkaline Phosphatase 81 U/L (38-126); Anion Gap 12 mmol/L; Blood Urea Nitrogen 13 mg/dL (9-20); Calcium 10.1 mg/dL (8.4-10.2); Carbon Dioxide 19 mmol/L (22-30); Chloride 105 mmol/L (98-107); Glucose 100 mg/dL (74-99); Non-African American GFR(CKD) 79 (>60 ml/min/1.73 sqM); Potassium 4.8 mmol/L (3.5-5.1); Sodium 136 mmol/L (137-145); Total Bilirubin 0.2 mg/dL (0.2-1.3); Total Protein 7.2 g/dL (6.3-8.2)
--- NOTE | 2024-02-16 09:35 | US ---
EXAMINATION TYPE: US venous doppler duplex LE LT DATE OF EXAM: 02/16/2024 9:23 AM COMPARISON: NONE CLINICAL INDICATION: Male, 63 years old with history of pain; lt calf cramping, Pain TECHNIQUE: The lower extremity deep venous system is examined utilizing real time linear array sonog tisha with graded compression, color doppler sonography, and spectral doppler. SIDE PERFORMED: Left FINDINGS: VESSELS IMAGED: Common Femoral Vein Deep Femoral Vein Greater Saphenous Vein * Femoral Vein Popliteal Vein Small Saphenous Vein * Proximal Calf Veins (* superficial vessels) Left Leg: Negative for DVT, Color Doppler imaging shows patency of the vessels. Spectral waveforms a re within normal limits. Patient had stent placed 11/04/23, probable stent failure documented IMPRESSION: 1. No ultrasound evidence for deep venous thrombosis. 2. Occluded left stent. [facility], , 02/16/2024 9:33 AM
[2024-02-16] MEDS ORDERED: HEPARIN SODIUM 1,000 UN/ML (10ML VL) IV PRN (10:58)
[2024-02-16] MEDS: HEPARIN SOD,PORK IN 0.45% NACL 25,000 UNIT in 0.45% NACL 1 250ML.BAG IV SCH (12:18)
[2024-02-16] MEDS: HEPARIN SODIUM 1,000 UN/ML (10ML VL) IV ONE (12:25)
--- NOTE | 2024-02-16 12:48 | CT ---
EXAMINATION TYPE: CT angio abd aorta w/Runoff DATE OF EXAM: 02/16/2024 11:48 AM COMPARISON: 11/03/2023.. CLINICAL INDICATION: Male, 63 years old with history of occluded stent lt leg; PHH, left leg pain TECHNIQUE: CT noncontrast abdomen pelvis and bilateral lower externally followed by CT angiogram abdomen and pel vis and bilateral lower extremities. Multiple thin slice sub-millimeter images were obtained before and after administration of contrast. 3-D reconstructed images and maximum intensity projection images were obtained. CT angio abd aorta w/Runoff CT Contrast: Contrast used:100 mL of Isovue 370 with IV Contrast, Oral contrast used: None CT DLP: 2449.2 mGycm, Automated exposure control for dose reduction was used. FINDINGS: CTA Abdomen and pelvis: The abdominal aorta does demonstrate aneurysmal dilatation measuring up to 3. 1 cm in the infrarenal portion.. Atherosclerotic plaquing is identified within the abdominal aorta. The origins of the superior mesenteric artery, renal arteries, inferior mesenteric artery, and graeme c axis are patent. The common and iliac and external iliac arteries are patent. Moderate to severe a mount of atherosclerotic plaque. CTA Lower extremities: Right: Common femoral artery is patent. There is occlusion of the superficial femoral artery just aft er its origin extending a trace stent graft posteriorly which is occluded. Popliteal artery is occlud ed. Postsurgical vascular changes along the anterior leg extending down to the anterior tibial artery is patent. The graft has circumferential wall thickening of the knee measuring up to 8 mm. The anter ior tibial artery crosses the ankle the posterior tibial artery is poorly visualized and diminutive. There is tortuous subcutaneous vessels throughout the lower extremity most pronounced medially at the level of the calf. Right hip arthroplasty appears intact. Left: The common femoral artery is patent. There is occlusion of the superficial femoral arteries katia nt grafts with reconstitution at the inferior popliteal artery. The anterior and posterior tibial art eries cross the ankle. There is tortuosity of subcutaneous vessels along the medial aspect of the ant erior aspect of the lower extremity. LOWER CHEST: Atherosclerosis of the coronary arteries. Heart is mildly enlarged for size. No evidence of focal consolidation, pneumothorax or pleural effusion. LIVER: Unremarkable GALLBLADDER AND BILE DUCTS: Unremarkable. PANCREAS: Unremarkable. SPLEEN: Unremarkable. ADRENAL GLANDS: Unremarkable. KIDNEYS AND URETERS: No evidence of hydronephrosis. The ureters are unremarkable. Appearing right posterior renal cyst. Left nonobstructing 5 mm calculus. PELVIS BLADDER: Unremarkable REPRODUCTIVE: Unremarkable. ABDOMEN & PELVIS STOMACH AND BOWEL: No evidence of bowel obstruction. Large amount of stool throughout the colon. Redu ndant sigmoid colon noted. PERITONEUM: No evidence of pneumoperitoneum or free fluid. VASCULATURE: No evidence of aortic aneurysm. MUSCULOSKELETAL: No acute osseous abnormalities LYMPH NODES: No gross evidence for lymphadenopathy. SOFT TISSUE/ABDOMINAL WALL: Large fat-containing bilateral inguinal hernias. IMPRESSION: Abdomen: 1. Infrarenal abdominal aortic aneurysm measuring up to 3.1 cm which may be fractionally larger prev iously 2.9 cm. 2. Moderate to severe atherosclerosis of the arterial vasculature. 3. Large amount stool throughout the colon. 4. Large bilateral inguinal hernias containing fat, left greater than right. Right: 1. Occlusion of the [place] superficial femoral artery and popliteal artery. 2. New Graft extending from the common femoral artery to the anterior tibial artery is patent. There is some circumferential wall thickening at the level of the knee measuring up to 8 mm correlate for vasculitis. 3. The anterior tibial artery crosses the ankle. 4. The posterior tibial artery is diminutive and poorly visualized consider quality lab assoc angiography. Left: 1. New occlusion of the left superficial femoral artery extending to the inferior popliteal artery w ith reconstitution. 2. Tortuosity of vessels along the leg likely collateral vessels 3. Diminutive anterior and posterior tibial arteries which cross the ankle. [facility], , 02/16/2024 12:46 PM
[2024-02-16] MEDS ORDERED: ACETAMINOPHEN TAB 325 MG TAB PO PRN (14:57)
[2024-02-16] MEDS ORDERED: NALOXONE 0.4 MG/ML 1 ML VIAL IV PRN (14:57)
[2024-02-16] MEDS: METOPROLOL TARTRATE 25 MG TAB PO SCH (18:22)
[2024-02-16] MEDS: HYDROmorphone 1 MG/ML 1 ML SYRINGE IVP PRN (18:24)
[2024-02-16] MEDS: ATORVASTATIN 20 MG TAB PO SCH (21:20)
[2024-02-16] MEDS: hydrALAZINE HCL 20 MG/ML 1 ML VIAL IVP PRN (21:44)
[2024-02-17 07:37] LABS: Anisocytosis Slight; Basophils % (A) 0 %; Eosinophils # (A) 0.3 k/uL (0-0.7); Eosinophils % (A) 4 %; HCT 38.1 % (39.0-53.0); HGB 11.6 gm/dL (13.0-17.5); Hypochromasia Marked; Lymphocytes # (A) 1.1 k/uL (1.0-4.8); Lymphocytes % (A) 13 %; MCHC 30.4 g/dL (31.0-37.0); MCV 82.2 fL (80.0-100.0); Mean Platelet Volume 7.4; Microcytosis Slight; Monocytes # (A) 0.6 k/uL (0-1.0); Monocytes % (A) 7 %; Neutrophils # (A) 6.4 k/uL (1.3-7.7); Neutrophils % (A) 75 %; Platelet Count 293 k/uL (150-450); RBC 4.63 m/uL (4.30-5.90); RDW 18.6 % (11.5-15.5); WBC 8.5 k/uL (3.8-10.6)
[2024-02-17 08:09] LABS: African American GFR (CKD) >90 (>60 ml/min/1.73 sqM); Anion Gap 9 mmol/L; Blood Urea Nitrogen 17 mg/dL (9-20); Calcium 9.1 mg/dL (8.4-10.2); Carbon Dioxide 23 mmol/L (22-30); Chloride 104 mmol/L (98-107); Glucose 96 mg/dL (74-99); Non-African American GFR(CKD) 80 (>60 ml/min/1.73 sqM); Potassium 4.5 mmol/L (3.5-5.1); Sodium 136 mmol/L (137-145)
[2024-02-17] MEDS: FLUoxetine HCL 20 MG CAP PO SCH (09:30)
[2024-02-17] MEDS: CHOLECALCIFEROL 125 MCG (5000 IU) TABLET PO SCH (09:30)
[2024-02-17] MEDS: PANTOPRAZOLE 40 MG TABLET PO SCH (09:30)
[2024-02-17] MEDS: TAMSULOSIN 0.4 MG CAP.ER.24H PO SCH (09:30)
[2024-02-17] MEDS: LOSARTAN 50 MG TAB PO SCH (09:30)
[2024-02-17] MEDS: SODIUM CHLORIDE 0.9% 1,000 ML IV ONE (10:30)
[2024-02-17] MEDS: MIDAZOLAM 2 MG/2 ML VIAL IVP ONE (10:38)
[2024-02-17] MEDS: LIDOCAINE 1% INJ 10MG/ML (20 ML MDV) SQ ONE (10:38)
[2024-02-17] MEDS: fentaNYL (PF) 50 MCG/1 ML VIAL IVP ONE (10:38)
[2024-02-17] MEDS: CLOPIDOGREL 75 MG TAB PO ONE (11:02)
[2024-02-17] MEDS ORDERED: ALTEPLASE 10 MG in SODIUM CHLORIDE 0.9% 90 ML IA ONE (11:02)
--- NOTE | 2024-02-17 11:13 | P.PCN ---
Description of Procedure: PROCEDURES PERFORMED: Left lower extremity angiography with runoff, TPA catheter placement, ultrasound guided access INDICATION: Acute limb ischemia with symptoms over the last 3 days CONSENT:I have discussed the risks, benefits and alternative therapies for the above-mentioned procedure and for both sedation/analgesia as well as necessary blood product administration, if indicated, as they pertain to this patient. The patient has indicated understanding and acceptance of the risks and procedures discussed. PROCEDURE: After the risks, benefits and alternatives of the above mentioned procedure explained in detail with the patient, informed consent was obtained. Patient was taken to the catheterization lab and prepped and draped in usual fashion. 1% lidocaine was used to anesthetize the left femoral area. A 6- German bright tip sheath was placed in the left femoral artery in antegrade approach using modified Seldinger technique and ultrasound guidance. Through the sheath, left lower extremity angiogram with DSA imaging was obtained. Next, the decision was made to place a TPA catheter. A 0.035 glide advantage was easily placed through the prior stents and into the popliteal artery. A 40cm length TPA infusion catheter was placed from the proximal SFA to popliteal artery. The TPA infusion catheter was initiated. The patient tolerated the procedure well. Patient was transported back to the post catheterization holding area in stable condition. Conscious Sedation: Patient was monitored under the direct supervision of vision of myself for conscious sedation using Versed and fentanyl for a total duration of 20 minutes HEMODYNAMICS: Ao: 148/89 Left lower extremity: Left common femoral artery: There is no significant stenosis. Left profunda: There is no significant stenosis. Left SFA: There is a long stent with 100% stenosis at the proximal edge of the stent extending into the popliteal artery Left popliteal artery: There is 100% of the P1 segment and reconstitutes at the P2. Left tibioperoneal trunk: There is no significant stenosis. Left anterior tibial artery: There is no significant stenosis. Left posterior tibial artery: There is no significant stenosis. Left peroneal artery: There is no significant stenosis. FINAL IMPRESSION: 1. Peripheral arterial disease as described above. 2. S/p TPA infusion catheter PLAN: 1. Aggressive risk factor modification per most recent ACC/AHA guidelines. 2. Tobacco cessation discussed in detail with patient. Patient given referral to [place] [facility]. 3. Infusion catheter overnight and reassess tomorrow.
[2024-02-17] MEDS ORDERED: ALTEPLASE 10 MG in SODIUM CHLORIDE 0.9% 90 ML IA SCH (11:15)
[2024-02-17] MEDS: IOPAMIDOL-250 100ML BTL INTRAARTER ONE (11:19)
[2024-02-17] MEDS: ALTEPLASE 10 MG in SODIUM CHLORIDE 0.9% 90 ML IA ONE (11:28)
[2024-02-17 11:48] LABS: Glucose,Whole Blood 102 mg/dL (70-110)
[2024-02-17] MEDS: HEPARIN SOD,PORK IN 0.45% NACL 25,000 UNIT in 0.45% NACL 1 250ML.BAG IV SCH (12:25)
[2024-02-17 13:09] LABS: Anisocytosis Slight; Basophils % (A) 0 %; Eosinophils # (A) 0.2 k/uL (0-0.7); Eosinophils % (A) 3 %; HCT 37.3 % (39.0-53.0); HGB 11.8 gm/dL (13.0-17.5); Hypochromasia Marked; Lymphocytes % (A) 12 %; MCH 25.9 pg (25.0-35.0); MCHC 31.6 g/dL (31.0-37.0); MCV 82.1 fL (80.0-100.0); Mean Platelet Volume 7.4; Microcytosis Slight; Monocytes # (A) 0.5 k/uL (0-1.0); Monocytes % (A) 6 %; Neutrophils # (A) 6.2 k/uL (1.3-7.7); Neutrophils % (A) 78 %; Platelet Count 286 k/uL (150-450); RBC 4.55 m/uL (4.30-5.90); RDW 18.8 % (11.5-15.5); WBC 7.9 k/uL (3.8-10.6)
[2024-02-17 13:20] LABS: African American GFR (CKD) >90 (>60 ml/min/1.73 sqM); Blood Urea Nitrogen 15 mg/dL (9-20); Non-African American GFR(CKD) 81 (>60 ml/min/1.73 sqM)
[2024-02-17 13:26] LABS: INR 0.9 (<1.2); Prothrombin Time 10.1 sec (10.0-12.5)
[2024-02-17] MEDS ORDERED: DEXTROSE 50% SYRINGE 50 ML IVP PRN ×2 (14:08)
--- NOTE | 2024-02-17 14:59 | XR ---
EXAMINATION TYPE: XR chest 1V portable DATE OF EXAM: 02/17/2024 2:24 PM COMPARISON: Chest radiographs from 09/09/2023 CLINICAL INDICATION: Male, 63 years old with history of chf; [facility] TECHNIQUE: XR chest 1V portable Frontal view of the chest. FINDINGS: Lungs/Pleura: There is no evidence of pleural effusion, focal consolidation, or pneumothorax. Pulmonary vascularity: Pulmonary vascular congestion. Heart/mediastinum: Cardiomediastinal silhouette is prominent in size. Musculoskeletal: No acute osseous pathology. IMPRESSION: Cardiomegaly and mild pulmonary vascular congestion. Correlate with BNP for congestive heart failure. [facility], , 02/17/2024 2:57 PM
[2024-02-17 16:22] LABS: Glucose,Whole Blood 106 mg/dL (70-110)
[2024-02-17] MEDS: INSULIN ASPART (NovoLOG) 100 UNIT/ML VIAL SQ SCH (19:46)
[2024-02-17 21:04] LABS: Glucose,Whole Blood 103 mg/dL (70-110)
[2024-02-17] MEDS: MORPHINE SULFATE 2 MG/ML SYRINGE IVP PRN (21:29)
[2024-02-18 06:05] LABS: Glucose,Whole Blood 120 mg/dL (70-110)
[2024-02-18 06:11] LABS: ALT 20 U/L (4-49); AST 26 U/L (17-59); African American GFR (CKD) >90 (>60 ml/min/1.73 sqM); Albumin 3.9 g/dL (3.5-5.0); Alkaline Phosphatase 89 U/L (38-126); Anion Gap 6 mmol/L; Blood Urea Nitrogen 11 mg/dL (9-20); Carbon Dioxide 22 mmol/L (22-30); Chloride 104 mmol/L (98-107); Glucose 103 mg/dL (74-99); Non-African American GFR(CKD) >90 (>60 ml/min/1.73 sqM); Potassium 4.2 mmol/L (3.5-5.1); Sodium 132 mmol/L (137-145); Total Bilirubin 0.6 mg/dL (0.2-1.3); Total Protein 6.4 g/dL (6.3-8.2)
[2024-02-18 06:17] LABS: Anisocytosis Slight; Basophils % (A) 0 %; Eosinophils # (A) 0.2 k/uL (0-0.7); Eosinophils % (A) 2 %; HCT 36.9 % (39.0-53.0); HGB 11.5 gm/dL (13.0-17.5); Hypochromasia Slight; Lymphocytes # (A) 0.7 k/uL (1.0-4.8); Lymphocytes % (A) 9 %; MCH 25.6 pg (25.0-35.0); MCHC 31.2 g/dL (31.0-37.0); MCV 82.1 fL (80.0-100.0); Mean Platelet Volume 7.7; Microcytosis Slight; Monocytes # (A) 0.4 k/uL (0-1.0); Monocytes % (A) 5 %; Neutrophils # (A) 6.1 k/uL (1.3-7.7); Neutrophils % (A) 82 %; Platelet Count 256 k/uL (150-450); RDW 18.7 % (11.5-15.5); WBC 7.5 k/uL (3.8-10.6)
[2024-02-18 06:20] LABS: INR 0.9 (<1.2); Partial Thromboplastin Time 30.1 sec (22.0-30.0); Prothrombin Time 10.2 sec (10.0-12.5)
--- NOTE | 2024-02-18 08:21 | P.PN ---
Subjective Progress Note Date: 02/18/24 PROGRESS NOTE The patient is a 63-year-old male with known history of PAD, followed by Dr. Shaikh who presented with symptoms of progressive dyspnea in the left lower extremity and was found to have 100% occlusion of the stent in the left SFA. He underwent angiography by Dr. Shaikh and placement of tPA catheter. He continues to have some discomfort but he has warm foot and the pulse is noted in the dorsalis pedis. He is scheduled to undergo recheck today. He is hemodynamically stable, in sinus mechanism. There is no evidence of malignant arrhythmia. He continues to be on tPA and IV heparin. Medications: tPA infusion, atorvastatin 20 mg daily, IV heparin, insulin, losartan 50 mg daily, metoprolol tartrate 25 mg daily, Flomax the patient was supposed to be on Xarelto and clopidogrel as an outpatient PHYSICAL EXAMINATION: Blood pressure 146/80 heart rate 77 LUNGS: Clear to auscultation HEART: Regular rate and rhythm, S1, S2. No S3. Systolic ejection murmur ABDOMEN: Soft, nontender, no organomegaly EXTREMETIES: No edema, catheter noted in the left femoral artery, left foot warm, hiatal hernia noted LAB: Hemoglobin 11.5, potassium 4.2, BUN 11, creatinine 0.91 IMPRESSION: 1. Severe PAD with occlusion of a stent in the left SFA 2. Chronic tobacco use 3. Hypertension 4. Hyperlipidemia PLAN: 1. Continue present therapy and proceed with recheck of tPA today 2. Increase beta-twan 3. Increase statin 4. Depending on his progress further recommendations will be made Objective - Vital Signs Vital signs: Vital Signs Temp 97.7 F 02/18/24 04:00 Pulse 77 02/18/24 07:00 Resp 18 02/18/24 07:00 BP 146/85 02/18/24 07:00 Pulse Ox 94 L 02/18/24 07:00 FiO2 Intake & Output 02/17/24 02/18/24 02/18/24 18:59 06:59 18:59 Intake Total 770.15 347.167 Output Total 300 1000 Balance 470.15 -652.833 Weight 79.832 kg 82.8 kg Intake: IV 280.15 270 Alteplase 10 mg In Sodium 30 5 Chloride 0.9% 90 ml @ 0. 5 MG/HR 5 mls/hr IA .Q20H [facility] Rx#:[id number] Heparin Sod,Pork in 0.45% 30 5 NaCl 25,000 unit In 0.45 % NaCl 1 250ml.bag @ 5 mls/hr IV .Q24H [facility] Rx#: [id number] Sodium Chloride 0.9% 1, 120 260 000 ml @ 0 mls/hr IV .STK -MED [facility] Rx#:[id number] Intake, IV Titration 77.167 Amount Alteplase 10 mg In Sodium 77.167 Chloride 0.9% 90 ml @ 0. 5 MG/HR 5 mls/hr IA .Q20H [facility] Rx#:[id number] Oral 490 Output: Urine 300 1000 Other: Voiding Method Urinal Urinal # Voids 1 - Labs CBC & Chem 7: 02/18/24 05:27 02/18/24 05:27 Labs: Abnormal Lab Results - Last 24 Hours (Table) 02/17/24 02/17/24 02/18/24 Range/Units 12:14 12:14 05:27 Hgb 11.8 L (13.0-17.5) gm/dL Hct 37.3 L (39.0-53.0) % RDW 18.8 H (11.5-15.5) % Lymphocytes # (1.0-4.8) k/uL APTT 30.1 H (22.0-30.0) sec Fibrinogen 504 H 544 H (200-500) mg/dL Sodium (137-145) mmol/L Glucose (74-99) mg/dL POC Glucose (mg/dL) (70-110) mg/dL 02/18/24 02/18/24 02/18/24 Range/Units 05:27 05:27 06:03 Hgb 11.5 L (13.0-17.5) gm/dL Hct 36.9 L (39.0-53.0) % RDW 18.7 H (11.5-15.5) % Lymphocytes # 0.7 L (1.0-4.8) k/uL APTT (22.0-30.0) sec Fibrinogen (200-500) mg/dL Sodium 132 L (137-145) mmol/L Glucose 103 H (74-99) mg/dL POC Glucose (mg/dL) 120 H (70-110) mg/dL
--- NOTE | 2024-02-18 09:09 | HP ---
HISTORY AND PHYSICAL CHIEF COMPLAINT: Left leg pain mostly in the left calf and discoloration. HISTORY OF PRESENT ILLNESS: This 63-year-old gentleman with a past medical history of multiple complex medical problems including peripheral vascular disease and left leg's varicose veins and apparently had some stenting by Dr. Shaikh. The patient is complaining of cough, pain, and the patient had vascular insufficiency. The patient admitted for evaluation and treatment. There is no history of any fever, rigors, or chills at this time. The venous ultrasound showed no DVT. The CT angio of the leg showed infrarenal abdominal aortic aneurysm 3.1 cm and [id number] atherosclerosis. New occlusion of the left superficial femoral artery also noted. PAST MEDICAL HISTORY: History of peripheral vascular disease, atrial fibrillation, diabetes, DVT. Rest of the history and chart are also reviewed. HOME MEDICATIONS: Reviewed include metformin, dose and rest of medications reviewed. ALLERGIES: None. FAMILY HISTORY: History of diabetes and hypertension. SOCIAL HISTORY: Smoking. REVIEW OF SYSTEMS: Fourteen-point review of systems is negative except as mentioned earlier. PHYSICAL EXAM: VITAL SIGNS: Pulse is 70, blood pressure 170/97, respirations 18. HEENT: Conjunctivae normal. NECK: No jugular venous distention. No carotid bruit. CARDIOVASCULAR: S1 and S2. RESPIRATIONS: Breath sounds diminished at the bases, few scattered rhonchi. ABDOMEN: Soft. LEGS: Left leg ischemic, pulses are diminished. LABORATORY DATA: Reviewed. ASSESSMENT: 1. Left leg occlusion with left superficial femoral artery occlusion, new onset. 2. History of peripheral vascular disease. 3. History of deep venous thrombosis. 4. Atrial fibrillation. 5. Diabetes mellitus type 2. 6. Hypertension. 7. History of sleep apnea. RECOMMENDATIONS AND DISCUSSION: This 63-year-old gentleman presented with multiple complex medical problems. We will monitor the patient closely. Recommend IV heparin infusion, Cardiology consultation. Prognosis is guarded because of multiple complex medical conditions. We will resume the home medications. The patient is on Xarelto at home. Monitor blood pressure closely. Hydralazine p.r.n. Further recommendations to follow. MMODL / IJN: [id number] /
--- NOTE | 2024-02-18 09:09 | CONS ---
CONSULTATION CHIEF COMPLAINT: Critical limb ischemia. HISTORY OF PRESENT ILLNESS: This is a 63-year-old gentleman with history of peripheral arterial disease status post prior fem-fem bypass surgery and status post prior stenting, hypertension, dyslipidemia, who presented to hospital complaining of left lower extremity pain that extended from the knee to his foot. He underwent a CT angiogram that revealed occlusion of the [place] superficial femoral artery and left superficial femoral artery and inferior popliteal artery. This is new. At the time of my evaluation, patient appears comfortable at rest and stable hemodynamically. He has been having intermittent episodes of pain for the last 2 days. His left foot was warm. There were no gangrene changes. PAST MEDICAL HISTORY: Significant for peripheral arterial disease, status post prior surgery and revascularization, diabetes, hypertension, dyslipidemia. MEDICATIONS: Include, 1. Glucophage 500 b.i.d. 2. Flomax. 3. Xarelto 20 daily. 4. Protonix. 5. Lopressor. 6. Cozaar. 7. Plavix. 8. Lipitor. 9. Prozac. ALLERGIES: There are no known drug allergies. FAMILY HISTORY: Negative for premature coronary artery disease. SOCIAL HISTORY: Negative for current smoking, EtOH abuse, or drug abuse. REVIEW OF SYSTEMS: 14 out of 14 review of systems has been performed. Pertinents are as documented. EXAM: GENERAL: Comfortable at rest. VITAL SIGNS: Stable. CHEST: Reveals good air entry bilaterally. HEART: Reveals first and second heart sounds. No gallop. No murmur. ABDOMEN: Soft, nontender. EXTREMITIES: Reveals diminished pulses in the left posterior tibial, left dorsalis pedis. Femoral pulses diminished but palpable. ASSESSMENT AND PLAN: Acute leg ischemia involving the left leg secondary to occlusion of the left superficial femoral artery. We will treat the patient with IV heparin and consult Dr. Shaikh for angiogram and possible intervention. MMODL / IJN: [id number] /
[2024-02-18] MEDS: METOPROLOL TARTRATE 25 MG TAB PO SCH (09:11)
[2024-02-18] MEDS: HYDROcodone/APAP 5-325MG 1 EACH TAB PO PRN (09:12)
[2024-02-18 11:24] LABS: Glucose,Whole Blood 108 mg/dL (70-110)
[2024-02-18 11:39] LABS: Anisocytosis Slight; Basophils % (A) 0 %; Eosinophils # (A) 0.1 k/uL (0-0.7); Eosinophils % (A) 2 %; HGB 11.3 gm/dL (13.0-17.5); Hypochromasia Moderate; Lymphocytes # (A) 0.8 k/uL (1.0-4.8); Lymphocytes % (A) 9 %; MCHC 30.5 g/dL (31.0-37.0); MCV 81.9 fL (80.0-100.0); Mean Platelet Volume 8.5; Microcytosis Slight; Monocytes # (A) 0.5 k/uL (0-1.0); Monocytes % (A) 6 %; Neutrophils % (A) 82 %; Platelet Count 267 k/uL (150-450); RBC 4.52 m/uL (4.30-5.90); RDW 18.6 % (11.5-15.5); WBC 8.5 k/uL (3.8-10.6)
--- NOTE | 2024-02-18 12:08 | IR ---
EXAMINATION TYPE: IR angio abdominal w runoff DATE OF EXAM: 02/17/2024 FLUOROSCOPY LT Leg pain, 3.5min, 3.14DAP 263 images provided [facility], , 02/18/2024 12:05 PM
[2024-02-18] MEDS: HYDROmorphone 0.5 MG/0.5 ML SYRINGE IVP PRN (12:29)
--- NOTE | 2024-02-18 12:47 | PN ---
PROGRESS NOTE DATE OF SERVICE: 02/17/2024 SUBJECTIVE: This is a 63-year-old gentleman with acute left leg occlusion, had an intra- arterial tPA by Dr. Shaikh. No chest pain. No palpitations. The patient is followed by [facility] and currently, the patient's primary physician was retired according to him, . PAST MEDICAL HISTORY: Reviewed. REVIEW OF SYSTEMS: A 14-point review of systems is negative. CURRENT MEDICATIONS: Reviewed. PHYSICAL EXAMINATION: VITAL SIGNS: Pulse is 64, blood pressure is 150/94, respirations 17. CHEST: Clear. CARDIOVASCULAR: S1, S2. RESPIRATIONS: Breath sounds diminished at the bases. No rhonchi. ABDOMEN: Soft. LEGS: Left foot distal ischemic changes present. LABORATORY DATA: Reviewed. ASSESSMENT: 1. Left leg arterial occlusion, status post intra-arterial tPA. 2. Hypertension. 3. Atrial fibrillation. 4. Diabetes mellitus, type 2. 5. Hyperlipidemia. RECOMMENDATIONS: Recommend to continue current management and continue symptomatic treatment. Monitor blood sugars closely. Otherwise, continue with heparin per Cardiology. Monitor closely. Repeat labs. I would also recommend a chest x-ray to complete the workup. Further recommendations to follow. MMODL / IJN: [id number] / MTDD
[2024-02-18] MEDS: fentaNYL (PF) 50 MCG/1 ML VIAL IVP ONE (13:28)
[2024-02-18] MEDS: IV FLUID CONTINUATION 1,000 ML IV ONE (13:28)
[2024-02-18] MEDS: MIDAZOLAM 2 MG/2 ML VIAL IVP ONE (13:28)
[2024-02-18] MEDS: HEPARIN SODIUM 1,000 UN/ML (10ML VL) IVP ONE (13:40)
[2024-02-18] MEDS: CLOPIDOGREL 75 MG TAB PO ONE (14:13)
[2024-02-18] MEDS: IOPAMIDOL-250 100ML BTL INTRAARTER ONE (14:14)
[2024-02-18] MEDS: SODIUM CHLORIDE 0.9% 1,000 ML IV ONE (14:14)
[2024-02-18] MEDS ORDERED: HEPARIN SODIUM 1,000 UN/ML (10ML VL) IV PRN (15:00)
--- NOTE | 2024-02-18 15:02 | P.PCN ---
Description of Procedure: PROCEDURES PERFORMED: Left lower extremity angiography with runoff, DCB left SFA with overlapping 6.0 x 120 and 6.0 x 250mm INPACT DCB, ultrasound guided access INDICATION: Acute limb ischemia with symptoms over the last 3 days, s/p TPA catheter placement CONSENT:I have discussed the risks, benefits and alternative therapies for the above-mentioned procedure and for both sedation/analgesia as well as necessary blood product administration, if indicated, as they pertain to this patient. The patient has indicated understanding and acceptance of the risks and procedures discussed. PROCEDURE: After the risks, benefits and alternatives of the above mentioned procedure explained in detail with the patient, informed consent was obtained. Patient was taken to the catheterization lab and prepped and draped in usual fashion. A 6-Setswana bright tip sheath had previously been placed in the left femoral artery in antegrade approach. The left SFA TPA catheter was exchanged for a 0.035 glide wire. Through the sheath, left lower extremity angiogram with DSA imaging was obtained. Next, the decision was made to perform DCB angioplasty with diffuse instent stenosis. Overlapping 6.0 x 250mm and then 6.0 x 120mm DCB INPACT balloon angioplasty was performed for 3 minutes each. Repeat angiograms were performed. There was some residual what appeared to be thrombus of the proximal edge of the stent which appeared 30% however felt best treated medically. Final angiograms were performed. Preintervention there was 80% stenosis and slow antegrade flow and post intervention there was 20-30% proximal stenosis and brisk, uninhibited runoff. The patient tolerated the procedure well. Patient was transported back to the post catheterization holding area in stable condition. Conscious Sedation: Patient was monitored under the direct supervision of vision of myself for conscious sedation using Versed and fentanyl for a total duration of 20 minutes HEMODYNAMICS: Ao: 142/81 Left lower extremity: Left common femoral artery: There is no significant stenosis. Left profunda: There is no significant stenosis. Left SFA: There is a long stent with proximal 80% stenosis at the proximal edge of the stent extending and otherwise mid 50% stenosis Left popliteal artery: There is an aneurysmal portion of the left popliteal artery. Left tibioperoneal trunk: There is no significant stenosis. Left anterior tibial artery: There is no significant stenosis. Left posterior tibial artery: There is no significant stenosis. Left peroneal artery: There is no significant stenosis. FINAL IMPRESSION: 1. Peripheral arterial disease as described above. 2. S/p DCB left SFA with overlapping 6.0 x 120 and 6.0 x 250mm INPACT DCB PLAN: 1. Aggressive risk factor modification per most recent ACC/AHA guidelines. 2. Tobacco cessation discussed in detail with patient. Patient given referral to [place] [facility]. 3. Continue Plavix and Xarelto for 6 months
[2024-02-18 15:51] LABS: Anisocytosis Slight; Basophils % (A) 0 %; Eosinophils # (A) 0.3 k/uL (0-0.7); Eosinophils % (A) 4 %; HCT 37.4 % (39.0-53.0); HGB 11.8 gm/dL (13.0-17.5); Hypochromasia Marked; Lymphocytes % (A) 13 %; MCH 25.9 pg (25.0-35.0); MCHC 31.5 g/dL (31.0-37.0); MCV 82.5 fL (80.0-100.0); Mean Platelet Volume 7.8; Microcytosis Slight; Monocytes # (A) 0.4 k/uL (0-1.0); Monocytes % (A) 5 %; Neutrophils # (A) 5.8 k/uL (1.3-7.7); Neutrophils % (A) 76 %; Platelet Count 251 k/uL (150-450); RBC 4.53 m/uL (4.30-5.90); RDW 18.6 % (11.5-15.5); WBC 7.7 k/uL (3.8-10.6)
[2024-02-18 15:56] LABS: Partial Thromboplastin Time 53.2 sec (22.0-30.0); Prothrombin Time 10.6 sec (10.0-12.5)
[2024-02-18] MEDS ORDERED: HEPARIN SOD,PORK IN 0.45% NACL 25,000 UNIT in 0.45% NACL 1 250ML.BAG IV SCH (16:00)
[2024-02-18] MEDS: SODIUM CHLORIDE 0.9% 1,000 ML in EMPTY BAG 1 BAG IV SCH (16:27)
--- NOTE | 2024-02-18 16:30 | IR ---
EXAMINATION TYPE: IR angio abdominal w runoff DATE OF EXAM: 02/18/2024 FLUOROSCOPY LEG PAIN, 4.1min, 0.113, no images are submitted for review [facility], , 02/18/2024 4:27 PM
[2024-02-18 16:33] LABS: Glucose,Whole Blood 96 mg/dL (70-110)
[2024-02-18] MEDS: HEPARIN SOD,PORK IN 0.45% NACL 25,000 UNIT in 0.45% NACL 1 250ML.BAG IV SCH (16:34)
[2024-02-18 20:47] LABS: Glucose,Whole Blood 100 mg/dL (70-110)
[2024-02-18] MEDS: ATORVASTATIN 40 MG TAB PO SCH (20:48)
--- NOTE | 2024-02-18 21:29 | PN ---
PROGRESS NOTE DATE OF SERVICE: 02/18/2024 This 63-year-old gentleman was admitted with severe occlusion, had tPA infusion. The patient is on heparin. The patient is scheduled to go back to the rd lab technician today. PAST MEDICAL HISTORY: Reviewed. REVIEW OF SYSTEMS: Fourteen-point review of systems is negative except as mentioned earlier. CURRENT MEDICATIONS: Reviewed. PHYSICAL EXAM: VITAL SIGNS: Pulse is 66, blood pressure 130/76, respirations 15. HEENT: Conjunctivae normal. CARDIOVASCULAR: S1, S2. CHEST: Reveals scattered rhonchi. ABDOMEN: Soft. LEGS: NERVOUS SYSTEM: Nonfocal. LABS: Fibrinogen 527. Rest of the labs are noted. ASSESSMENT: 1. Left leg occlusion with left superficial femoral artery occlusion, new onset, status post tPA. 2. History of peripheral vascular disease. 3. History of deep venous thrombosis. 4. Atrial fibrillation. 5. Diabetes mellitus, type 2. 6. Hypertension. 7. History of sleep apnea. RECOMMENDATIONS: Recommend to continue current management and continue symptomatic treatment. Otherwise, monitor blood sugars closely. Continue with heparin. Further recommendations per Cardiology. Guarded prognosis. Further recommendation to follow. MMODL / IJN: [id number] /
[2024-02-19 06:36] LABS: Anisocytosis Slight; Basophils % (A) 0 %; Eosinophils # (A) 0.3 k/uL (0-0.7); Eosinophils % (A) 3 %; HCT 36.6 % (39.0-53.0); HGB 11.4 gm/dL (13.0-17.5); Hypochromasia Moderate; Lymphocytes # (A) 0.9 k/uL (1.0-4.8); Lymphocytes % (A) 11 %; MCH 25.5 pg (25.0-35.0); MCHC 31.1 g/dL (31.0-37.0); MCV 81.9 fL (80.0-100.0); Mean Platelet Volume 7.2; Microcytosis Slight; Monocytes # (A) 0.5 k/uL (0-1.0); Monocytes % (A) 7 %; Neutrophils # (A) 5.8 k/uL (1.3-7.7); Neutrophils % (A) 75 %; Platelet Count 244 k/uL (150-450); RBC 4.47 m/uL (4.30-5.90); RDW 18.7 % (11.5-15.5); WBC 7.7 k/uL (3.8-10.6)
[2024-02-19 06:38] LABS: Glucose,Whole Blood 91 mg/dL (70-110)
[2024-02-19 06:45] LABS: INR 0.9 (<1.2); Prothrombin Time 10.5 sec (10.0-12.5)
[2024-02-19 06:58] LABS: African American GFR (CKD) >90 (>60 ml/min/1.73 sqM); Anion Gap 9 mmol/L; Blood Urea Nitrogen 10 mg/dL (9-20); Calcium 8.9 mg/dL (8.4-10.2); Carbon Dioxide 21 mmol/L (22-30); Chloride 104 mmol/L (98-107); Glucose 94 mg/dL (74-99); Non-African American GFR(CKD) >90 (>60 ml/min/1.73 sqM); Potassium 4.3 mmol/L (3.5-5.1); Sodium 134 mmol/L (137-145)
[2024-02-19] MEDS: CLOPIDOGREL 75 MG TAB PO SCH (07:55)
--- NOTE | 2024-02-19 07:57 | P.PN ---
Subjective Progress Note Date: 02/19/24 PROGRESS NOTE The patient is a 63-year-old male with known history of PAD, followed by Dr. Shaikh who presented with symptoms of progressive dyspnea in the left lower extremity and was found to have 100% occlusion of the stent in the left SFA. He underwent angiography by Dr. Shaikh and placement of tPA catheter. He continues to have some discomfort but he has warm foot and the pulse is noted in the dorsalis pedis. He is scheduled to undergo recheck today. He is hemodynamically stable, in sinus mechanism. There is no evidence of malignant arrhythmia. He continues to be on tPA and IV heparin. February 18: The patient is feeling better today, his left lower extremity discomfort has resolved. He underwent angiography and balloon angioplasty yesterday. His foot is warm. He denies any chest discomfort, dizziness or palpitations. He continues to be in sinus mechanism. Hemodynamically he is stable. Medications: 75 mg daily, atorvastatin 40 mg daily,insulin, losartan 50 mg daily, metoprolol tartrate 25 mg twice daily, Flomax. Xarelto 20 mg daily PHYSICAL EXAMINATION: Blood pressure 165/90 heart rate 79 LUNGS: Clear to auscultation HEART: Regular rate and rhythm, S1, S2. No S3. Systolic ejection murmur ABDOMEN: Soft, nontender, no organomegaly EXTREMETIES: No edema, left groin no hematoma, foot warm with dorsalis pedis noted LAB: Hemoglobin 11.4, potassium 4.3, BUN 10, creatinine 0.90 IMPRESSION: 1. Severe PAD with occlusion of a stent in the left SFA status post tPA inf usion and balloon angioplasty 2. Chronic tobacco use 3. Hypertension 4. Hyperlipidemia PLAN: 1. Continue clopidogrel and Xarelto 2. Increase losartan 3. Increase physical activity 4. If stable probable discharge this afternoon and follow-up as an outpatient Objective - Vital Signs Vital signs: Vital Signs Temp 97.7 F 02/19/24 00:00 Pulse 79 02/19/24 07:00 Resp 19 02/19/24 07:00 BP 165/97 02/19/24 07:00 Pulse Ox 90 L 02/19/24 07:00 FiO2 Intake & Output 02/18/24 02/19/24 02/19/24 18:59 06:59 18:59 Intake Total 480 260 10 Output Total 850 1250 Balance -370 -990 10 Weight 82.8 kg Intake: IV 480 260 10 Sodium Chloride 0.9% 1, 140 000 ml @ 0 mls/hr IV .STK -MED [facility] Rx#:[id number] Sodium Chloride 0.9% 1, 240 260 10 000 ml In Empty Bag 1 bag @ 80 mls/hr [id number] Rx#:[id number] Output: Urine 850 1250 Other: Voiding Method Urinal Urinal # Voids 1 # Bowel Movements 0 0 ABP, PAP, CO, CI - Last Documented Arterial Blood Pressure 94/56 - Labs CBC & Chem 7: 02/19/24 06:03 02/19/24 06:03 Labs: Abnormal Lab Results - Last 24 Hours (Table) 02/18/24 02/18/24 02/18/24 Range/Units 11:20 11:20 15:39 Hgb 11.3 L 11.8 L (13.0-17.5) gm/dL Hct 37.0 L 37.4 L (39.0-53.0) % MCHC 30.5 L (31.0-37.0) g/dL RDW 18.6 H 18.6 H (11.5-15.5) % Lymphocytes # 0.8 L (1.0-4.8) k/uL APTT (22.0-30.0) sec Fibrinogen 527 H (200-500) mg/dL Sodium (137-145) mmol/L Carbon Dioxide (22-30) mmol/L 02/18/24 02/18/24 02/19/24 Range/Units 15:39 20:37 06:03 Hgb 11.4 L (13.0-17.5) gm/dL Hct 36.6 L (39.0-53.0) % MCHC (31.0-37.0) g/dL RDW 18.7 H (11.5-15.5) % Lymphocytes # 0.9 L (1.0-4.8) k/uL APTT 53.2 H 41.6 H (22.0-30.0) sec Fibrinogen (200-500) mg/dL Sodium (137-145) mmol/L Carbon Dioxide (22-30) mmol/L 02/19/24 02/19/24 Range/Units 06:03 06:03 Hgb (13.0-17.5) gm/dL Hct (39.0-53.0) % MCHC (31.0-37.0) g/dL RDW (11.5-15.5) % Lymphocytes # (1.0-4.8) k/uL APTT 56.8 H (22.0-30.0) sec Fibrinogen (200-500) mg/dL Sodium 134 L (137-145) mmol/L Carbon Dioxide 21 L (22-30) mmol/L
[2024-02-19 08:18] VITALS: PULSE 80; RESP 20; TEMP 98
[2024-02-19 11:37] LABS: Glucose,Whole Blood 108 mg/dL (70-110)
[2024-02-19] MEDS: LOSARTAN 50 MG TAB PO SCH (12:23)
[2024-02-19] MEDS: RIVAROXABAN 20 MG TAB PO SCH (12:23)
[2024-02-19 13:29] VITALS: BP 143/78
--- NOTE | 2024-02-20 01:44 | P.DS ---
Providers Date of admission: 02/16/24 16:04 Attending physician: Yash Ontiveros MD Consults: 02/16/24 14:57 Consult Physician Routine Consulting Provider: Jarod Spencer Consult Reason/Comments: lt leg art occlusion Do you want consulting provider notified?: Already Contacted Primary care physician: [facility] Course: This is a pleasant 63 years old male who presents because of severe peripheral artery disease with occlusion of the stent in the left SFA and some infusion on the right side with a bulb on angioplasty Patient evaluated by baking powder mixer he status post stent in the left SFA and is s/p tPA infusion and balloon angioplasty. Postprocedure limb is warm and pulses present and pain controlled I discussed the case with cardiology team who cleared her for discharge Patient denies any other new complaint and he agrees to be discharged Problems and management plan were discussed with the patient and he verbalized understanding and acceptance Patient was found stable and can be discharged home in guarded prognosis however he needs follow-up as an outpatient. Patient was instructed to follow up with PCP Dr. Hines within one week and patient agrees Patient was instructed to follow-up with his baking powder mixer Dr. Shaikh in 1 to 2 weeks and he agrees Prescription for Plavix and Xarelto provided for him upon discharge Physical exam Gen: patient is a AAOx3, no distress CVS: S1-S2, RRR, no murmur Lungs: B/L CTA, no wheezing Abdomen: soft, no distention, no tenderness, positive bowel sounds Extremity: no leg edema or induration Time spent more than 35 minutes Patient Condition at Discharge: Stable Plan - Discharge Summary Discharge Rx Participant: Yes New Discharge Prescriptions: New Atorvastatin [Lipitor] 40 mg PO HS #30 tab Acetaminophen Tab [Tylenol] 650 mg PO Q6HR PRN tab PRN Reason: Mild Pain Or Fever > 100.5 Losartan [Cozaar] 100 mg PO DAILY #60 tab Continue Tamsulosin [Flomax] 0.8 mg PO DAILY FLUoxetine HCL [PROzac] 20 mg PO DAILY Pantoprazole [Protonix] 40 mg PO DAILY Clopidogrel [Plavix] 75 mg PO DAILY #30 tab Rivaroxaban [Xarelto] 20 mg PO W/SUPPER #30 tab Metoprolol Tartrate [Lopressor] 25 mg PO DAILY Cholecalciferol (Vitamin D3) [Vitamin D3 (125 MCG = 5,000 IU)] 125 mcg PO DAILY Discontinued Losartan [Cozaar] 50 mg PO DAILY Atorvastatin [Lipitor] 20 mg PO HS No Action metFORMIN HCL [Glucophage] 500 mg PO BID Discharge Medication List Metoprolol Tartrate [Lopressor] 25 mg PO DAILY 09/09/22 [History] Tamsulosin [Flomax] 0.8 mg PO DAILY 09/09/22 [History] metFORMIN HCL [Glucophage] 500 mg PO BID 09/09/22 [History] Cholecalciferol (Vitamin D3) [Vitamin D3 (125 MCG = 5,000 IU)] 125 mcg PO DAILY 09/10/23 [History] FLUoxetine HCL [PROzac] 20 mg PO DAILY 09/10/23 [History] Pantoprazole [Protonix] 40 mg PO DAILY 02/16/24 [History] Acetaminophen Tab [Tylenol] 650 mg PO Q6HR PRN tab 02/19/24 [Rx] Atorvastatin [Lipitor] 40 mg PO HS #30 tab 02/19/24 [Rx] Clopidogrel [Plavix] 75 mg PO DAILY #30 tab 02/19/24 [Rx] Losartan [Cozaar] 100 mg PO DAILY #60 tab 02/19/24 [Rx] Rivaroxaban [Xarelto] 20 mg PO W/SUPPER #30 tab 02/19/24 [Rx] Follow up Appointment(s)/Referral(s): Angus Shaikh DO [STAFF PHYSICIAN] - 1 Week Georgina Romo MD [Primary Care Provider] - 1-2 days Activity/Diet/Wound Care/Special Instructions: heart healthy diet, low carbohydrate diet 1800 k melida per day activity is restricted till you see your doctor resume metformin after you talk to your doctor Recommend to check your glucose 4 times a day before each meal and at bedtime, keep the results in a log book and bring it your doctor and your appointment date If your glucose less than 70 or more than 400 and then come to emergency room Discharge Disposition: HOME SELF-CARE
--- NOTE | 2024-02-25 12:17 | CDI ---
Documentation Clarification Form Date: 02/25/2024 09:40:35 AM From: Moriah Alvarez RN, CCDS Email: [email or web address] Admit Date: 02/16/2024 04:04:00 PM Patient Name: Mc Dangelo Visit Number: [id number] Discharge Date: 02/19/2024 02:32:00 PM ATTENTION: The Clinical Documentation Specialists (CDI) and [facility] Coding Staff appreciate your assistance in clarifying documentation. Please respond to the clarification below the line at the bottom and electronically sign. The CDI & [facility] Coding staff will review the response and follow-up if needed. Please note: Queries are made part of the Legal Health Record. If you have any questions, please contact the author of this message via ITS. Doctor Jie Elizabeth Atrial Fibrillation is documented in the H&P and progress notes. Additional clarification regarding the type of atrial fibrillation is requested. History/Risk Factors: PVD with stenting, A fib, DM and DVT. Presented with left leg pain and discoloration. Admitted with acute limb ischemia, s/p TPA catheter placement. Clinical Indicators: H&P: "Atrial fibrillation. The patient is on Xarelto at home." 02/18 EKG: SR with sinus arrhythmia Treatment: Plavix 75mg po daily 02/16-02/18; Metoprolol 25mg po daily 02/15- 02/16; Metoprolol 25mg po BID 02/17-02/18; Xarelto 20mg po on 02/18 Please clarify the type of atrial fibrillation, if known: [ ] Chronic [ ] Permanent [ x ] Paroxysmal [ ] Persistent [ ] Other, please specify [ ] Unable to determine (Template Last Revised: June 2020) MTDD
== END 2024-02-19 14:32 | disposition home or self-care (01) | DRG 254 ==
LOC: EC 06:04 → 3SCARD 16:04 → 2SICU 02-17 11:11
PROVIDERS: ADMIT Internal Medicine; ATTEND Internal Medicine
PROC: 3E05317 Introduction of Other Thrombolytic into Peripheral Artery, Percutaneous Approach (ICD-10-PCS; 2024-02-17 09:45)
PROC: 047L3Z1 Dilation of Left Femoral Artery using Drug-Coated Balloon, Percutaneous Approach (ICD-10-PCS; principal; 2024-02-18 13:00)
DX: T82.856A Stenosis of peripheral vascular stent, initial encounter (principal); E11.51 Type 2 diabetes mellitus with diabetic peripheral angiopathy without gangrene; I70.222 Atherosclerosis of native arteries of extremities with rest pain, left leg; I71.43 Infrarenal abdominal aortic aneurysm, without rupture; Z95.820 Peripheral vascular angioplasty status with implants and grafts; I10 Essential (primary) hypertension; I48.0 Paroxysmal atrial fibrillation; E78.5 Hyperlipidemia, unspecified; N40.0 Benign prostatic hyperplasia without lower urinary tract symptoms; F17.210 Nicotine dependence, cigarettes, uncomplicated; G47.30 Sleep apnea, unspecified; K44.9 Diaphragmatic hernia without obstruction or gangrene; Y71.1 Therapeutic (nonsurgical) and rehabilitative cardiovascular devices associated with adverse incidents; Z96.641 Presence of right artificial hip joint; Z79.02 Long term (current) use of antithrombotics/antiplatelets; Z79.01 Long term (current) use of anticoagulants; Z79.84 Long term (current) use of oral hypoglycemic drugs; Z79.899 Other long term (current) drug therapy; I25.2 Old myocardial infarction; Z86.14 Personal history of Methicillin resistant Staphylococcus aureus infection; Z86.718 Personal history of other venous thrombosis and embolism
CPT/HCPCS: 36415; 37211; 37214; 37224; 71045; 75635; 75710; 76937; 80048; 80053; 82565; 83036; 83605; 84520; 85025; 85384; 85610; 85730; 86850; 86900; 86901; 96365; 96366; 96375; 96376; 99285

== ENCOUNTER 2024-03-05 22:01 | Inpatient (IN) | payer MEDICARE, OTHER ==
[2024-03-05] MEDS ORDERED: RX INFO: IV CONTRAST WAS GIVEN 1 EACH MISC MISCELLANE PRN (22:21)
--- NOTE | 2024-03-05 22:27 | ED ---
Extremity Problem HPI - General Chief complaint: Extremity Problem,Nontraumatic Stated complaint: Lft leg numbness/pain Time Seen by Provider: 03/05/24 22:14 Source: patient, RN notes reviewed Mode of arrival: wheelchair Limitations: no limitations - History of Present Illness Initial comments: This is a 63-year-old male who presents to the emergency department for left leg pain. Patient has a history of PAD and follows with Dr. Shaikh. He was eval uated here in January for left leg pain. He was found to have occlusion of the left SFA and required stent placement. States that he has had some numbness in the leg since then, but it was mild and bearable. 2 days ago he started to develop severe pain in the leg with worsening numbness. States that it feels the same as the last time he had an occlusion, which he is concerned about. He is still taking Plavix and Xarelto as prescribed. Denies any chest pain or shortness of breath. MD Complaint: extremity pain - Related Data Home Medications Medication Instructions Recorded Confirmed Metoprolol Tartrate [Lopressor] 25 mg PO DAILY 09/09/22 02/16/24 Tamsulosin [Flomax] 0.8 mg PO DAILY 09/09/22 02/16/24 metFORMIN HCL [Glucophage] 500 mg PO BID 09/09/22 02/16/24 Cholecalciferol (Vitamin D3) 125 mcg PO DAILY 09/10/23 02/16/24 [Vitamin D3 (125 MCG = 5,000 IU)] FLUoxetine HCL [PROzac] 20 mg PO DAILY 09/10/23 02/16/24 Pantoprazole [Protonix] 40 mg PO DAILY 02/16/24 02/16/24 Previous Rx's Medication Instructions Recorded Acetaminophen Tab [Tylenol] 650 mg PO Q6HR PRN tab 02/19/24 Atorvastatin [Lipitor] 40 mg PO HS #30 tab 02/19/24 Clopidogrel [Plavix] 75 mg PO DAILY #30 tab 02/19/24 Losartan [Cozaar] 100 mg PO DAILY #60 tab 02/19/24 Rivaroxaban [Xarelto] 20 mg PO W/SUPPER #30 tab 02/19/24 Allergies Allergy/AdvReac Type Severity Reaction Status Date / Time No Known Allergies Allergy Verified 03/05/24 22:11 Review of Systems ROS Statement: Those systems with pertinent positive or pertinent negative responses have been documented in the HPI. ROS Other: All systems not noted in ROS Statement are negative. Past Medical History Past Medical History: Atrial Fibrillation, Diabetes Mellitus, Deep Vein Thrombosis (DVT), Hyperlipidemia, Hypertension, Prostate Disorder, Sleep Apnea/CPAP/BIPAP, Vascular Disorder Additional Past Medical History / Comment(s): Hx "mini heart attack/scarring long time ago". Cardiomyopathy. PAD. Varicose veins. Enlarged prostate. No CPAP use. History of Any Multi-Drug Resistant Organisms: MRSA Date of last positivie culture/infection: 07/05/21 MDRO Source:: Left Ankle Past Surgical History: Heart Catheterization With Stent, Joint Replacement Additional Past Surgical History / Comment(s): Stent to right leg, vein graft right leg, right femoral bypass, stents to left leg, right hip replacement. Past Anesthesia/Blood Transfusion Reactions: No Reported Reaction Date of Last Stent Placement:: Unknown Past Psychological History: Anxiety Smoking Status: Current every day smoker Past Alcohol Use History: Occasional Past Drug Use History: None Reported - Past Family History Mother Family Medical History: Diabetes Mellitus, Hypertension Additional Family Medical History / Comment(s): Family history of varicose veins. Father Family Medical History: CVA/TIA, Myocardial Infarction ([place]) General Exam Limitations: no limitations General appearance: alert, in no apparent distress Head exam: Present: atraumatic, normocephalic, normal inspection Respiratory exam: Present: normal lung sounds bilaterally. Absent: respiratory distress, wheezes, rales, rhonchi, stridor Cardiovascular Exam: Present: regular rate, normal rhythm Extremities exam: Present: other (The left lower extremity is warm but dusky. Diffuse tenderness. Nonpalpable pulses.) Neurological exam: Present: alert, oriented X3, CN II-XII intact Psychiatric exam: Present: normal affect, normal mood Course Vital Signs 03/05/24 03/05/24 03/06/24 22:06 23:26 00:17 Temperature 98.1 F Pulse Rate 113 H 91 92 Respiratory 22 16 16 Rate Blood Pressure 126/72 138/77 142/87 O2 Sat by Pulse 99 94 L 96 Oximetry 03/06/24 02:13 Temperature 98.1 F Pulse Rate 91 Respiratory 18 Rate Blood Pressure 167/108 O2 Sat by Pulse 96 Oximetry Medical Decision Making - Medical Decision Making This is a 63-year-old male who presents to the emergency department for left leg pain. Was pt. sent in by a medical professional or institution? @ -No Did you speak to anyone other than the patient for history? @ -No Did you review nursing and triage notes? @ -Yes, and I agree, it is accurate with regards to the patient's symptoms. Were old charts reviewed? @ -No Differential Diagnosis? @ -Leg fracture, leg sprain, DVT, PVD, arterial insufficiency, iliac artery aneurysm, cellulitis, compartment syndrome, tendinopathy, nerve entrapment, piriformis syndrome, osteoarthritis, rhabdomyolysis, myositis, cramping from an electrolyte imbalance, this is not meant to be an all inclusive list. EKG interpreted by me (3pts min.)? @ -EKG interpreted by me demonstrating the following: Sinus rhythm. Ventricular rate 84 bpm, IN interval 146 ms, QRS duration 145 ms, QTc 453 ms. X-rays interpreted by me (1pt min.)? @ -Not obtained CT interpreted by me (1pt min.)? @ -CTA of the left lower extremity obtained. My interpretation identifies an occlusion of the left SFA. U/S interpreted by me (1pt. min.)? @ -Not obtained What testing was considered but not performed? (CT, X-rays, U/S, labs)? Why? @ -None What meds were considered but not given? Why? @ -None Did you discuss the management of the patient with other professionals? @ -No Did you reconcile home meds? @ -No Was smoking cessation discussed for >3mins.? @ -No Was critical care preformed (if so, how long)? @ -No Were there social determinants of health that impacted care today? How? (Homelessness, low income, unemployed, alcoholism, drug addiction, transportation, low edu. Level, literacy, decrease access to med. care, alf, rehab)? @ -No Was there de-escalation of care discussed even if they declined? (Discuss DNR or withdrawal of care, Hospice)? @ -No What co-morbidities impacted this encounter? (DM, HTN, Smoking, COPD, CAD, Cancer, CVA, Hep., AIDS, mental health diagnosis, sleep apnea, morbid obesity)? @ -PAD, DM, HLD, HTN Was patient admitted / discharged? @ -Admitted. On exam the left lower extremity was dusky but warm. Pulses were not palpable, however with the Doppler it did pickle sorter on a pulse for a couple of seconds but then lost it again. Pulses are easily palpable on the right lower extremity. Lab work demonstrates mild leukocytosis with a white blood cell count of 11. Lactic acid mildly elevated at 2.6. CTA of the left lower extremity demonstrates complete occlusion of the [place] SFA and popliteal artery, including the stented segments. He does have patent bypass graft exte nding from the common femoral artery to the anterior tibial artery, which is patent to the ankle and flow is visible in the dorsalis pedis artery. Collaterals resupply the posterior tibial and peroneal arteries. There is also severe stenosis of the proximal internal iliac artery with occlusion distally. He was started on the high intensity heparin protocol and admitted to medicine for occlusion of the left SFA and popliteal arteries. Consult placed for Dr. Shaikh, who previously managed this leg and the patient currently follows with. Patient kept NPO in the event he needs to go to the [facility] assistant. Case discussed with ED attending Dr. Alfaro. Undiagnosed new problem with uncertain prognosis? @ -None Drug Therapy requiring intensive monitoring for toxicity (Heparin, Nitro, Insulin, Cardizem)? @ -Heparin Were any procedures done? @ -None Diagnosis/symptom? @ -Occlusion of the left SFA and popliteal arteries Acute, or Chronic, or Acute on Chronic? @ -Acute Uncomplicated (without systemic symptoms) or Complicated (systemic symptoms)? @ -Uncomplicated Side effects of treatment? @ -None Exacerbation, Progression, or Severe Exacerbation] @ -Not applicable Poses a threat to life or bodily function? @ -Yes, can lead to loss of limb if not managed - Lab Data Result diagrams: 03/05/24 22:28 03/05/24 22:28 Lab Results 03/05/24 03/05/24 03/05/24 Range/Units 22:28 22:28 22:28 WBC 11.0 H (3.8-10.6) k/uL RBC 4.97 (4.30-5.90) m/uL Hgb 12.7 L (13.0-17.5) gm/dL Hct 40.7 (39.0-53.0) % MCV 81.9 (80.0-100.0) fL MCH 25.6 (25.0-35.0) pg MCHC 31.2 (31.0-37.0) g/dL RDW 18.7 H (11.5-15.5) % Plt Count 341 (150-450) k/uL MPV 7.5 Neutrophils % 77 % Lymphocytes % 13 % Monocytes % 6 % Eosinophils % 2 % Basophils % 0 % Neutrophils # 8.5 H (1.3-7.7) k/uL Lymphocytes # 1.4 (1.0-4.8) k/uL Monocytes # 0.7 (0-1.0) k/uL Eosinophils # 0.2 (0-0.7) k/uL Basophils # 0.0 (0-0.2) k/uL Hypochromasia Slight Anisocytosis Slight Microcytosis Slight PT 11.8 (10.0-12.5) sec INR 1.1 (<1.2) APTT 31.5 H (22.0-30.0) sec Sodium 135 L (137-145) mmol/L Potassium 4.6 (3.5-5.1) mmol/L Chloride 102 (98-107) mmol/L Carbon Dioxide 24 (22-30) mmol/L Anion Gap 9 mmol/L BUN 18 (9-20) mg/dL Creatinine 1.33 H (0.66-1.25) mg/dL Est GFR (CKD-EPI)AfAm 66 (>60 ml/min/1.73 sqM) Est GFR (CKD-EPI)NonAf 57 (>60 ml/min/1.73 sqM) Glucose 105 H (74-99) mg/dL Lactic Ac Sepsis Rflx Plasma Lactic Acid Juancarlos (0.7-2.0) mmol/L Calcium 9.4 (8.4-10.2) mg/dL Total Bilirubin 0.3 (0.2-1.3) mg/dL AST 34 (17-59) U/L ALT 25 (4-49) U/L Alkaline Phosphatase 84 (38-126) U/L Total Protein 7.5 (6.3-8.2) g/dL Albumin 4.4 (3.5-5.0) g/dL 03/05/24 03/06/24 Range/Units 22:28 00:13 WBC (3.8-10.6) k/uL RBC (4.30-5.90) m/uL Hgb (13.0-17.5) gm/dL Hct (39.0-53.0) % MCV (80.0-100.0) fL MCH (25.0-35.0) pg MCHC (31.0-37.0) g/dL RDW (11.5-15.5) % Plt Count (150-450) k/uL MPV Neutrophils % % Lymphocytes % % Monocytes % % Eosinophils % % Basophils % % Neutrophils # (1.3-7.7) k/uL Lymphocytes # (1.0-4.8) k/uL Monocytes # (0-1.0) k/uL Eosinophils # (0-0.7) k/uL Basophils # (0-0.2) k/uL Hypochromasia Anisocytosis Microcytosis PT (10.0-12.5) sec INR (<1.2) APTT (22.0-30.0) sec Sodium (137-145) mmol/L Potassium (3.5-5.1) mmol/L Chloride (98-107) mmol/L Carbon Dioxide (22-30) mmol/L Anion Gap mmol/L BUN (9-20) mg/dL Creatinine (0.66-1.25) mg/dL Est GFR (CKD-EPI)AfAm (>60 ml/min/1.73 sqM) Est GFR (CKD-EPI)NonAf (>60 ml/min/1.73 sqM) Glucose (74-99) mg/dL Lactic Ac Sepsis Rflx Y Plasma Lactic Acid Juancarlos 2.6 H* (0.7-2.0) mmol/L Calcium (8.4-10.2) mg/dL Total Bilirubin (0.2-1.3) mg/dL AST (17-59) U/L ALT (4-49) U/L Alkaline Phosphatase (38-126) U/L Total Protein (6.3-8.2) g/dL Albumin (3.5-5.0) g/dL - Radiology Data Radiology results: report reviewed, image reviewed Disposition Clinical Impression: Superficial femoral artery occlusion, Popliteal artery occlusion, left Disposition: ADMITTED IP TO THIS HOSP
[2024-03-05 22:41] LABS: Anisocytosis Slight; Basophils % (A) 0 %; Eosinophils # (A) 0.2 k/uL (0-0.7); Eosinophils % (A) 2 %; HCT 40.7 % (39.0-53.0); HGB 12.7 gm/dL (13.0-17.5); Hypochromasia Slight; Lymphocytes # (A) 1.4 k/uL (1.0-4.8); Lymphocytes % (A) 13 %; MCH 25.6 pg (25.0-35.0); MCHC 31.2 g/dL (31.0-37.0); MCV 81.9 fL (80.0-100.0); Mean Platelet Volume 7.5; Microcytosis Slight; Monocytes # (A) 0.7 k/uL (0-1.0); Monocytes % (A) 6 %; Neutrophils # (A) 8.5 k/uL (1.3-7.7); Neutrophils % (A) 77 %; Platelet Count 341 k/uL (150-450); RBC 4.97 m/uL (4.30-5.90); RDW 18.7 % (11.5-15.5)
[2024-03-05] MEDS: HYDROmorphone 1 MG/ML 1 ML SYRINGE IVP STA (22:45)
[2024-03-05] MEDS: SODIUM CHLORIDE 0.9% 1,000 ML IV STA (22:46)
[2024-03-05 22:52] LABS: INR 1.1 (<1.2); Partial Thromboplastin Time 31.5 sec (22.0-30.0); Prothrombin Time 11.8 sec (10.0-12.5)
[2024-03-05 23:52] LABS: ALT 25 U/L (4-49); AST 34 U/L (17-59); African American GFR (CKD) 66 (>60 ml/min/1.73 sqM); Albumin 4.4 g/dL (3.5-5.0); Alkaline Phosphatase 84 U/L (38-126); Anion Gap 9 mmol/L; Blood Urea Nitrogen 18 mg/dL (9-20); Calcium 9.4 mg/dL (8.4-10.2); Carbon Dioxide 24 mmol/L (22-30); Chloride 102 mmol/L (98-107); Glucose 105 mg/dL (74-99); Non-African American GFR(CKD) 57 (>60 ml/min/1.73 sqM); Potassium 4.6 mmol/L (3.5-5.1); Sodium 135 mmol/L (137-145); Total Bilirubin 0.3 mg/dL (0.2-1.3); Total Protein 7.5 g/dL (6.3-8.2)
[2024-03-06] MEDS: HYDROmorphone 1 MG/ML 1 ML SYRINGE IM STA (00:10)
--- NOTE | 2024-03-06 01:09 | CT ---
EXAM: CT Angiography of the Left Lower Extremity With Intravenous Contrast CLINICAL HISTORY: ITS.REASON CT Reason: Leg pain, hx of arterial occlusion TECHNIQUE: Axial computed tomographic angiography images of the left lower extremity with intravenous contrast. CTDI is 33.3 mGy and DLP is 1834.4 mGy-cm. This CT exam was performed using one or more of the following dose reduction techniques: automated exposure control, adjustment of the mA and/or kV according to patient size, and/or use of iterative reconstruction technique. MIP reconstructed images were created and reviewed. COMPARISON: No relevant prior studies available. FINDINGS: There are no acute skeletal findings within the left lower extremity. There is a large fat-containing left inguinal hernia. There is atherosclerotic vascular disease. Visualized lower abdominal aorta is mildly aneurysmal measuring 3 cm. There is severe stenosis in the proximal left internal artery with occlusion suggested distally. There is heavy plaquing of the left common and external iliac arteries with multiple regions of less than 50% stenosis, not hemodynamically significant. There is 50% stenosis of the common femoral artery. The deep femoral artery is adequately patent. There is complete occlusion of distended superficial femoral artery. There is complete occlusion of the upper popliteal artery. There is flow reconstitution in the distal segment. Assessment of the calf arteries is limited by small caliber of the vessels. There is dominant runoff to the ankle via the anterior tibial and posterior tibial arteries. Flow is suggested in the dorsalis pedis artery. Majority of the peroneal artery appears patent, but flow was not confirmed at the level of the ankle. There are multiple varicose veins within the left lower extremity. IMPRESSION: 1. Complete occlusion of the stented superficial femoral artery. 2. Complete occlusion of the upper popliteal artery with reconstitution of flow in the distal popliteal artery. 3. Dominant runoff to the ankle by the anterior and posterior tibial arteries. Majority of the peroneal artery appears patent, but flow was not confirmed at the level of the ankle. 4. Also observed, severe stenosis in the proximal left internal iliac artery with occlusion distally. 5. Mild aneurysmal dilatation of the visualized distal abdominal aorta measuring 3 cm. EXAM: CT Angiography of the Right Lower Extremity With Intravenous Contrast CLINICAL HISTORY: ITS.REASON CT Reason: Leg pain, hx of arterial occlusion TECHNIQUE: Axial computed tomographic angiography images of the right lower extremity with intravenous contrast. CTDI is 0 mGy and DLP is 0 mGy-cm. This CT exam was performed using one or more of the following dose reduction techniques: automated exposure control, adjustment of the mA and/or kV according to patient size, and/or use of iterative reconstruction technique. MIP reconstructed images were created and reviewed. COMPARISON: No relevant prior studies available. FINDINGS: There are no acute skeletal findings within the right lower extremity. There is a small fat-containing right inguinal hernia. There is atherosclerotic vascular disease. There is severe stenosis within the proximal right internal iliac artery with occlusion distally. There is heavy calcific plaque within the right common and external iliac arteries with multiple regions of less than 50% stenosis, not hemodynamically significant. Common femoral artery appears aneurysmal, measuring 1.5 cm. There is no common femoral artery stenosis. The deep femoral artery appears patent. The [place] superficial femoral artery is completely occluded, including the stented distal segment. The [place] popliteal artery is completely occluded, including the stented proximal segment. There is a patent bypass graft extending from the right common femoral artery distally to the leg, supplying the anterior tibial artery. The anterior tibial artery is patent to the ankle, and flow is visible in the dorsalis pedis artery. There is collateral resupply of the peroneal and posterior tibial arteries. The peroneal artery appears patent to the ankle. Majority of the posterior tibial artery appears patent, but flow is not confirmed at the level of the ankle. There are multiple varicose veins within the right leg. IMPRESSION: 1. Complete occlusion of [place] SFA and popliteal artery. 2. Patent bypass graft extending from the common femoral artery to the anterior tibial artery. Anterior tibial artery is patent to the ankle. 3. Collaterals resupply the posterior tibial and peroneal arteries. Peroneal artery is patent to the ankle. Posterior tibial artery appears majority patent, but flow is not confirmed at the level of the ankle. 4. 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 This occurs at the level of origin of the bypass graft. 5. Severe stenosis in the proximal internal iliac artery with occlusion distally.
[2024-03-06] MEDS ORDERED: HEPARIN SODIUM 1,000 UN/ML (10ML VL) IV PRN (01:22)
[2024-03-06] MEDS ORDERED: ACETAMINOPHEN TAB 325 MG TAB PO PRN (01:23)
[2024-03-06] MEDS ORDERED: NALOXONE 0.4 MG/ML 1 ML VIAL IV PRN (01:23)
[2024-03-06] MEDS ORDERED: ONDANSETRON 4 MG/2 ML VIAL IVP PRN (01:23)
[2024-03-06] MEDS: HEPARIN SOD,PORK IN 0.45% NACL 25,000 UNIT in 0.45% NACL 1 250ML.BAG IV SCH ×2 (01:34→19:00)
[2024-03-06] MEDS: HEPARIN SODIUM 1,000 UN/ML (10ML VL) IV ONE (01:43)
[2024-03-06 03:48] LABS: Glucose,Whole Blood 101 mg/dL (70-110)
[2024-03-06] MEDS: HYDROmorphone 1 MG/ML 1 ML SYRINGE IVP PRN (03:52)
[2024-03-06] MEDS: PANTOPRAZOLE 40 MG/10 ML VIAL IV SCH (08:01)
[2024-03-06 09:43] LABS: African American GFR (CKD) 80 (>60 ml/min/1.73 sqM); Anion Gap 10 mmol/L; Blood Urea Nitrogen 17 mg/dL (9-20); Calcium 8.6 mg/dL (8.4-10.2); Carbon Dioxide 22 mmol/L (22-30); Chloride 104 mmol/L (98-107); Glucose 90 mg/dL (74-99); Non-African American GFR(CKD) 69 (>60 ml/min/1.73 sqM); Potassium 4.6 mmol/L (3.5-5.1); Sodium 136 mmol/L (137-145)
[2024-03-06 11:33] LABS: Glucose,Whole Blood 137 mg/dL (70-110)
[2024-03-06] MEDS: LOSARTAN 50 MG TAB PO SCH (12:43)
[2024-03-06] MEDS: NICOTINE 14MG/24HR PATCH TRANSDERM SCH (12:43)
[2024-03-06] MEDS: METOPROLOL TARTRATE 25 MG TAB PO SCH (12:43)
[2024-03-06] MEDS ORDERED: ZOLPIDEM 5 MG TAB PO PRN (13:52)
[2024-03-06] MEDS ORDERED: ALPRAZolam 0.25 MG TAB PO PRN (13:52)
--- NOTE | 2024-03-06 13:53 | P.GSCN ---
History of Present Illness Consult date: 03/06/24 Reason for Consult: PAD, LLE Requesting physician: Linette Clements History of present illness: This a pleasant 63-year-old male with a history of peripheral arterial disease, diabetes mellitus, current smoker, atrial fibrillation, DVT, hyperlipidemia, hypertension, BPH, and sleep apnea who presented to the emergency department yesterday evening with complaints of left lower extremity pain. Patient has history of peripheral arterial disease with previous right lower extremity femoral to tibial bypass graft done by Dr. Nuno in April 2022 but most recently has been following with interventional cardiology and sees Dr. Shaikh who has done multiple stents in the left lower extremity. Patient was recently here and seen by Dr. Shaikh for left SFA occluded stent underwent tPA on 02/17/2024 with SFA stent placement on 02/18/2024. Patient states he started having lower extremity pain again. He he is able to move his foot and ankle he does have a chronic wound to his right medial ankle since January. He had a CTA of the left lower extremity that reports occlusion of stented SFA, occlusion of the upper popliteal artery with reconstitution as well as severe stenosis of the left internal iliac artery. Vascular surgery was consulted for left lower extremity peripheral arterial disease. Home meds to include Plavix 75 mg daily and Xarelto 20 mg daily. He is currently on a heparin drip. He denies any shortness of breath, chest pain, abdominal pain, nausea or vomiting. Review of Systems A 14 point review systems was completed all pertinent positives and negatives as stated in the HPI. Past Medical History Past Medical History: Atrial Fibrillation, Diabetes Mellitus, Deep Vein Thrombosis (DVT), Hyperlipidemia, Hypertension, Prostate Disorder, Sleep Apnea/CPAP/BIPAP, Vascular Disorder Additional Past Medical History / Comment(s): Hx "mini heart attack/scarring long time ago". Cardiomyopathy. PAD. Varicose veins. Enlarged prostate. No CPAP use. History of Any Multi-Drug Resistant Organisms: MRSA Year Discovered:: 07/05/21 MDRO Source:: Left Ankle Past Surgical History: Heart Catheterization With Stent, Joint Replacement Additional Past Surgical History / Comment(s): Stent to right leg, vein graft right leg, right femoral bypass, stents to left leg, right hip replacement. Past Anesthesia/Blood Transfusion Reactions: No Reported Reaction Date of Last Stent Placement:: Unknown Past Psychological History: Anxiety Smoking Status: Current every day smoker Past Alcohol Use History: Occasional Additional Past Alcohol Use History / Comment(s): Has been smoking for 30 yrs, down to 1 ppd now. Drinks 2-3 beers daily. Aware no alcohol today. Past Drug Use History: None Reported - Past Family History Mother Family Medical History: Diabetes Mellitus, Hypertension Additional Family Medical History / Comment(s): Family history of varicose veins. Father Family Medical History: CVA/TIA, Myocardial Infarction ([place]) Medications and Allergies Home Medications Medication Instructions Recorded Confirmed Type Metoprolol Tartrate [Lopressor] 25 mg PO DAILY 09/09/22 03/06/24 History Tamsulosin [Flomax] 0.8 mg PO DAILY 09/09/22 03/06/24 History metFORMIN HCL [Glucophage] 500 mg PO BID 09/09/22 03/06/24 History Cholecalciferol (Vitamin D3) 125 mcg PO DAILY 09/10/23 03/06/24 History [Vitamin D3 (125 MCG = 5,000 IU)] FLUoxetine HCL [PROzac] 20 mg PO DAILY 09/10/23 03/06/24 History Pantoprazole [Protonix] 40 mg PO DAILY 02/16/24 03/06/24 History Acetaminophen Tab [Tylenol] 650 mg PO Q6HR PRN tab 02/19/24 03/06/24 Rx Atorvastatin [Lipitor] 40 mg PO HS #30 tab 02/19/24 03/06/24 Rx Clopidogrel [Plavix] 75 mg PO DAILY #30 tab 02/19/24 03/06/24 Rx Losartan [Cozaar] 100 mg PO DAILY #60 tab 02/19/24 03/06/24 Rx Rivaroxaban [Xarelto] 20 mg PO W/SUPPER #30 tab 02/19/24 03/06/24 Rx Allergies Allergy/AdvReac Type Severity Reaction Status Date / Time No Known Allergies Allergy Verified 03/05/24 22:11 Surgical - Exam Vital Signs Temp Pulse Resp BP Pulse Ox 98.1 F 113 H 22 126/72 99 03/05/24 22:06 03/05/24 22:06 03/05/24 22:06 03/05/24 22:06 03/05/24 22:06 General appearance: The patient is alert, oriented, appears in no acute distress. HET: Head is normocephalic and atraumatic. Pupils are equal and reactive. Neck: Supple. Heart: Regular. Lungs: Equal expansion, normal respiratory effort. Abdomen: Soft, nondistended. Extremities: Bilateral palpable femoral pulses. Palpable right DP pulse. Right lower extremity with jackson from previous stab avulsion phlebectomy varicose veins. Left lower extremity with nonpalpable PT or DP pulse. Monophasic popliteal and PT Doppler signal. Medial aspect of ankle with diabetic ulcer. Sensorimotor intact with good range of motion. Neurological: No focal deficits. Strength and sensation are grossly intact. Results - Labs 03/05/24 22:28 03/06/24 07:49 Abnormal Lab Results - Last 24 Hours (Table) 03/05/24 03/05/24 03/05/24 Range/Units 22:28 22: 22: WBC 11.0 H (3.8-10.6) k/uL Hgb 12.7 L (13.0-17.5) gm/dL RDW 18.7 H (11.5-15.5) % Neutrophils # 8.5 H (1.3-7.7) k/uL APTT 31.5 H (22.0-30.0) sec Sodium 135 L (137-145) mmol/L Creatinine 1.33 H (0.66-1.25) mg/dL Glucose 105 H (74-99) mg/dL POC Glucose (mg/dL) (70-110) mg/dL Plasma Lactic Acid Juancarlos (0.7-2.0) mmol/L 03/05/24 03/06/24 03/06/24 Range/Units 22:28 07:49 07:49 WBC (3.8-10.6) k/uL Hgb (13.0-17.5) gm/dL RDW (11.5-15.5) % Neutrophils # (1.3-7.7) k/uL APTT 113.1 H* (22.0-30.0) sec Sodium 136 L (137-145) mmol/L Creatinine (0.66-1.25) mg/dL Glucose (74-99) mg/dL POC Glucose (mg/dL) (70-110) mg/dL Plasma Lactic Acid Juancarlos 2.6 H* (0.7-2.0) mmol/L 03/06/24 Range/Units 11:32 WBC (3.8-10.6) k/uL Hgb (13.0-17.5) gm/dL RDW (11.5-15.5) % Neutrophils # (1.3-7.7) k/uL APTT (22.0-30.0) sec Sodium (137-145) mmol/L Creatinine (0.66-1.25) mg/dL Glucose (74-99) mg/dL POC Glucose (mg/dL) 137 H (70-110) mg/dL Plasma Lactic Acid Juancarlos (0.7-2.0) mmol/L Diabetes panel 03/05/24 03/06/24 Range/Units 22:28 07:49 Sodium 135 L 136 L (137-145) mmol/L Potassium 4.6 4.6 (3.5-5.1) mmol/L Chloride 102 104 (98-107) mmol/L Carbon Dioxide 24 22 (22-30) mmol/L BUN 18 17 (9-20) mg/dL Creatinine 1.33 H 1.14 (0.66-1.25) mg/dL Glucose 105 H 90 (74-99) mg/dL Calcium 9.4 8.6 (8.4-10.2) mg/dL AST 34 (17-59) U/L ALT 25 (4-49) U/L Alkaline Phosphatase 84 (38-126) U/L Total Protein 7.5 (6.3-8.2) g/dL Albumin 4.4 (3.5-5.0) g/dL Calcium panel 03/05/24 03/06/24 Range/Units 22:28 07:49 Calcium 9.4 8.6 (8.4-10.2) mg/dL Albumin 4.4 (3.5-5.0) g/dL Pituitary panel 03/05/24 03/06/24 Range/Units 22:28 07:49 Sodium 135 L 136 L (137-145) mmol/L Potassium 4.6 4.6 (3.5-5.1) mmol/L Chloride 102 104 (98-107) mmol/L Carbon Dioxide 24 22 (22-30) mmol/L BUN 18 17 (9-20) mg/dL Creatinine 1.33 H 1.14 (0.66-1.25) mg/dL Glucose 105 H 90 (74-99) mg/dL Calcium 9.4 8.6 (8.4-10.2) mg/dL Adrenal panel 03/05/24 03/06/24 Range/Units 22:28 07:49 Sodium 135 L 136 L (137-145) mmol/L Potassium 4.6 4.6 (3.5-5.1) mmol/L Chloride 102 104 (98-107) mmol/L Carbon Dioxide 24 22 (22-30) mmol/L BUN 18 17 (9-20) mg/dL Creatinine 1.33 H 1.14 (0.66-1.25) mg/dL Glucose 105 H 90 (74-99) mg/dL Calcium 9.4 8.6 (8.4-10.2) mg/dL Total Bilirubin 0.3 (0.2-1.3) mg/dL AST 34 (17-59) U/L ALT 25 (4-49) U/L Alkaline Phosphatase 84 (38-126) U/L Total Protein 7.5 (6.3-8.2) g/dL Albumin 4.4 (3.5-5.0) g/dL Assessment and Plan Assessment: 1. Left SFA stent occlusion, recent stent placement and tPA end of January with Dr. Shaikh 2. Left upper popliteal artery occlusion with reconstitution distally 3. History of right peripheral arterial disease status post fem-tib bypass with CryoVein 4. Diabetes mellitus 5. Current smoker 6. Atrial fibrillation Plan: 1. Defer intervention/recommendations to granulator operator 2. Agree with heparin drip 3. Keep NPO 4. Rest of medical management per primary medical team Thank you for this consultation, vascular surgery will be on standby if further needed once granulator operator evaluates patient. The impression and plan of care has been dictated as directed. Dr. Nuno I performed a history and examination of this patient, discussed the same with the dictator. I agree with the dictator's note ,documented as a scribe. Any additional findings or plans will be noted.
--- NOTE | 2024-03-06 14:10 | P.CRDCN ---
History of Present Illness Consult date: 03/06/24 Reason for Consult (text): Occlusion of left SFA and popliteal artery History of present illness: This is a 63-year-old male patient of Dr. Shaikh with past medical history of peripheral artery disease, diabetes, tobacco use and dependence, atrial fibrillation, DVT, hyperlipidemia, hypertension, BPH, sleep apnea. Patient was in the hospital at the end of January and found to have a left SFA occluded stent underwent tPA on 1228 with SFA stent placement on 1229. Patient states that yesterday he was walking in his house and his calf started to stiffen up and become numb down to his ankle and then his leg felt like a rock. He complai ns of pulsating pain. Patient presented to the emergency center with the above complaints. Patient has been started on IV Dilaudid and heparin drip. Blood pressure 156/94, heart rate 78, pulse ox 95% on room air. Patient continues to smoke but down to less than half a pack per day. -EKG: Sinus rhythm with right bundle branch block, LVH -CTA left lower extremity: Complete occlusion of the stented superficial femoral artery. Complete occlusion of the upper popliteal artery with reconstitution of flow in the distal popliteal artery. Dominant runoff of the ankle at the anterior and posterior tibial arteries. Majority of the peroneal artery appears patent but flow was not confirmed at the level of the ankle. Severe stenosis of the proximal left internal iliac artery with occlusion distally. Mild aneurysmal dilatation of the distal abdominal aorta measuring 3 cm. CTA right lower extremity: Complete occlusion of the habematolel SFA and popliteal artery. Patent bypass graft extending from the common femoral artery to the anterior tibial artery. Anterior tibial artery is patent to the ankle. Collaterals resupplied the posterior tibial and peroneal arteries. 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 This is at the level of the origin of the bypass graft. Severe stenosis of the proximal internal iliac artery with occlusion distally. -Laboratory studies: WBC 11, hemoglobin 12.7, sodium 136, potassium 4.6, BUN 17. Initial creatinine 1.33 and repeat 1.14. Lactic acid 2.6 and repeat 1.9. -Home cardiac medications: Atorvastatin 40 mg at bedtime, Plavix 75 mg daily, losartan 100 mg daily, Lopressor 25 mg daily, Xarelto 20 mg with supper -Echocardiogram performed 09/10/2023 revealed LV function is normal with EF 60%. Review Of Systems: At the time of my exam: CONSTITUTIONAL: Denies fever or chills. Reports left lower leg pain. HEENT: Denies blurred vision, vision changes, or eye pain. Denies hemoptysis CARDIOVASCULAR: Denies chest pain. Denies orthopnea. Denies PND. Denies palpitations RESPIRATORY: Denies shortness of breath. GASTROINTESTINAL: Denies abdominal pain. Denies nausea or vomiting. HEMATOLOGIC: Denies bleeding disorders. GENITOURINARY: Denies any blood in urine. SKIN: Denies puritis. Denies rash. Physical examination: Gen: This is a 63-year-old male in no acute distress VS: reviewed HEENT: Head is atraumatic, normocephalic. Pupils equal, round. Sclerae is anicteric. NECK: Supple. No JVD. LUNGS: Clear to auscultation. No wheezes or rhonchi. No intercostal retractions. HEART: Regular rate and rhythm. No murmur. ABDOMEN: Soft No tenderness. EXTREMITIES: No pedal edema bilaterally. Unable to palpate DP, PT, popliteal pulses on the left. NEUROLOGICAL: Patient is awake, alert and oriented x3. Assessment: Occlusion of stented SFA, occlusion of the upper popliteal artery with reconstitution as well as severe stenosis of the left anterior iliac artery Known peripheral artery disease Diabetes mellitus Tobacco use and dependence Atrial fibrillation History of DVT Hyperlipidemia Hypertension BPH Sleep apnea Plan: Resume patient's home cardiac medications Hold Xarelto Continue heparin drip Smoking cessation. Patient will be provided with a [employer] quit line information at the time of discharge Patient will be scheduled for peripheral angiogram this afternoon with Dr. Shaikh Continue n.p.o. status Further recommendations to follow based upon clinical course Thank you kindly for this consultation. Nurse practitioner note has been reviewed, I agree with documented findings and plan of care. Patient was seen and examined. Past Medical History Past Medical History: Atrial Fibrillation, Diabetes Mellitus, Deep Vein Thrombosis (DVT), Hyperlipidemia, Hypertension, Prostate Disorder, Sleep Apnea/CPAP/BIPAP, Vascular Disorder Additional Past Medical History / Comment(s): Hx "mini heart attack/scarring long time ago". Cardiomyopathy. PAD. Varicose veins. Enlarged prostate. No CPAP use. History of Any Multi-Drug Resistant Organisms: MRSA Date of last positivie culture/infection: 07/05/21 MDRO Source:: Left Ankle Past Surgical History: Heart Catheterization With Stent, Joint Replacement Additional Past Surgical History / Comment(s): Stent to right leg, vein graft right leg, right femoral bypass, stents to left leg, right hip replacement. Past Anesthesia/Blood Transfusion Reactions: No Reported Reaction Date of Last Stent Placement:: Unknown Past Psychological History: Anxiety Smoking Status: Current every day smoker Past Alcohol Use History: Occasional Additional Past Alcohol Use History / Comment(s): Has been smoking for 30 yrs, down to 1 ppd now. Drinks 2-3 beers daily. Aware no alcohol today. Past Drug Use History: None Reported - Past Family History Mother Family Medical History: Diabetes Mellitus, Hypertension Additional Family Medical History / Comment(s): Family history of varicose veins. Father Family Medical History: CVA/TIA, Myocardial Infarction ([place]) Medications and Allergies Home Medications Medication Instructions Recorded Confirmed Type Metoprolol Tartrate [Lopressor] 25 mg PO DAILY 09/09/22 03/06/24 History Tamsulosin [Flomax] 0.8 mg PO DAILY 09/09/22 03/06/24 History metFORMIN HCL [Glucophage] 500 mg PO BID 09/09/22 03/06/24 History Cholecalciferol (Vitamin D3) 125 mcg PO DAILY 09/10/23 03/06/24 History [Vitamin D3 (125 MCG = 5,000 IU)] FLUoxetine HCL [PROzac] 20 mg PO DAILY 09/10/23 03/06/24 History Pantoprazole [Protonix] 40 mg PO DAILY 02/16/24 03/06/24 History Acetaminophen Tab [Tylenol] 650 mg PO Q6HR PRN tab 02/19/24 03/06/24 Rx Atorvastatin [Lipitor] 40 mg PO HS #30 tab 02/19/24 03/06/24 Rx Clopidogrel [Plavix] 75 mg PO DAILY #30 tab 02/19/24 03/06/24 Rx Losartan [Cozaar] 100 mg PO DAILY #60 tab 02/19/24 03/06/24 Rx Rivaroxaban [Xarelto] 20 mg PO W/SUPPER #30 tab 02/19/24 03/06/24 Rx Allergies Allergy/AdvReac Type Severity Reaction Status Date / Time No Known Allergies Allergy Verified 03/05/24 22:11 Physical Exam Vitals: Vital Signs Temp Pulse Pulse Resp BP BP Pulse Ox 03/06/24 08:00 97.9 F 78 15 156/94 95 03/06/24 04:00 97.6 F 91 20 155/79 95 03/06/24 02:13 98.1 F 91 18 167/108 96 03/06/24 00:17 92 16 142/87 96 03/05/24 23:26 91 16 138/77 94 L 03/05/24 22:06 98.1 F 113 H 22 126/72 99 Intake and Output 03/05/24 03/06/24 03/06/24 22:59 06:59 14:59 Output Total 300 Balance -300 Output: Urine 300 Other: Voiding Method Urinal Weight 78.018 kg 78.018 kg Results 03/05/24 22:28 03/06/24 07:49 Cardiac Enzymes 03/05/24 Range/Units 22:28 AST 34 (17-59) U/L Coagulation 03/05/24 Range/Units 22:28 PT 11.8 (10.0-12.5) sec APTT 31.5 H (22.0-30.0) sec CBC 03/05/24 Range/Units 22:28 WBC 11.0 H (3.8-10.6) k/uL RBC 4.97 (4.30-5.90) m/uL Hgb 12.7 L (13.0-17.5) gm/dL Hct 40.7 (39.0-53.0) % Plt Count 341 (150-450) k/uL Comprehensive Metabolic Panel 03/05/24 Range/Units 22:28 Sodium 135 L (137-145) mmol/L Potassium 4.6 (3.5-5.1) mmol/L Chloride 102 (98-107) mmol/L Carbon Dioxide 24 (22-30) mmol/L BUN 18 (9-20) mg/dL Creatinine 1.33 H (0.66-1.25) mg/dL Glucose 105 H (74-99) mg/dL Calcium 9.4 (8.4-10.2) mg/dL AST 34 (17-59) U/L ALT 25 (4-49) U/L Alkaline Phosphatase 84 (38-126) U/L Total Protein 7.5 (6.3-8.2) g/dL Albumin 4.4 (3.5-5.0) g/dL Current Medications Generic Name Dose Route Start Last Admin Trade Name Freq PRN Reason Stop Dose Admin Acetaminophen 650 mg 03/06/24 01:23 Acetaminophen Tab 325 Mg Tab PO Q6HR PRN Mild Pain or Fever > 100.5 Heparin Sodium (Porcine) 0 unit 03/06/24 01:22 Heparin Sodium 1,000 Un/Ml (10ml Vl) IV PER PROTOCOL PRN Low PTT Protocol Hydromorphone HCl 0.5 mg 03/06/24 01:23 Hydromorphone 0.5 Mg/0.5 Ml Syringe IVP Q3HR PRN Moderate Pain (Scale 4 to 6) Hydromorphone HCl 1 mg 03/06/24 01:23 03/06/24 08:01 Hydromorphone 1 Mg/Ml 1 Ml Syringe IVP 1 mg Q3HR PRN Administration Severe Pain (Scale 7 to 10) Heparin Sodium/Sodium Chloride 250 mls @ 14.043 mls/hr 03/06/24 01:30 03/06/24 01:34 25,000 unit/ Sodium Chloride IV 18 units/kg/hr .[id number] IVETTE 14.043 mls/hr Administration Protocol 18 UNITS/KG/HR Miscellaneous Information 1 each 03/05/24 22:21 Rx Info: Iv Contrast Was Given 1 Each Misc MISCELLANE 03/07/24 22:22 DAILY PRN Per Protocol Naloxone HCl 0.2 mg 03/06/24 01:23 Naloxone 0.4 Mg/Ml 1 Ml Vial IV Q2M PRN Opioid Reversal Ondansetron HCl 4 mg 03/06/24 01:23 Ondansetron 4 Mg/2 Ml Vial IVP Q8HR PRN Nausea And Vomiting Pantoprazole Sodium 40 mg 03/06/24 09:00 03/06/24 08:01 Pantoprazole 40 Mg/10 Ml Vial IV 40 mg DAILY IVETTE Administration Intake and Output 03/05/24 03/06/24 03/06/24 22:59 06:59 14:59 Output Total 300 Balance -300 Output: Urine 300 Other: Voiding Method Urinal Weight 78.018 kg 78.018 kg 03/05/24 22:28 03/05/24 22:28
--- NOTE | 2024-03-06 15:34 | P.HPIM ---
History of Present Illness H&P Date: 03/06/24 This is a pleasant 63-year-old male with medical history significant for peripheral arterial disease, chronic nicotine use, atrial fibrillation, diabetes mellitus, hypertension, hyperlipidemia, obstructive sleep apnea. Coronary artery disease with prior cardiac stenting. Patient comes into the hospital with complaints of severe left leg pain. He was in the hospital in January 2024 and underwent stenting of the left SFA with Dr. Shaikh. Since the procedure patient was continued on Plavix and Xarelto which he reports compliance with these medications. He did report some degree of numbness to the left leg but has also stated that he does have peripheral neuropathy. Over the last week he has experienced severe pain to his left leg starting in the thigh and now down into the foot ankle and states that in the last couple days it has been cramping in the calf when he has been attempting to ambulate. He came in for further evaluation. CT angiography of the left lower extremity reveals complete occlusion of the stented superficial femoral artery, complete occlusion of the upper popliteal artery with reconstruction of flow in the distal popliteal artery, dominant runoff to the ankle by the anterior and posterior tibial arteries. Majority of the peroneal artery appears patent but flow has not come from the level of the ankle. There is severe stenosis in the proximal left internal iliac artery with occlusion distally. There is mild aneurysmal dilation of the visualized distal abdominal aorta measuring 3 cm. He was admitted to the hospital under internal medicine with a consult placed to cardiology and vascular services. He is started on IV heparin and Xarelto is currently placed on hold. Did discuss with patient to bedside the importance of smoking cessation and he is agreeing. REVIEW OF SYSTEMS: CONSTITUTIONAL: No fever, no malaise, no fatigue. HEENT: No recent visual problems or hearing problems. Denied any sore throat. CARDIOVASCULAR: No chest pain, orthopnea, PND, no palpitations, no syncope. PULMONARY: No shortness of breath, no cough, no hemoptysis. GASTROINTESTINAL: No diarrhea, no nausea, no vomiting, no abdominal pain. NEUROLOGICAL: No headaches, no weakness, no numbness. HEMATOLOGICAL: Denies any bleeding or petechiae. GENITOURINARY: Denies any burning micturition, frequency, or urgency. MUSCULOSKELETAL/RHEUMATOLOGICAL: Denies any joint pain, swelling, or any muscle pain. ENDOCRINE: Denies any polyuria or polydipsia. The rest of the 14-point review of systems is negative. PHYSICAL EXAMINATION: GENERAL: The patient is alert and oriented x3, not in any acute distress. Well developed, well nourished. HEENT: Pupils are round and equally reacting to light. EOMI. No scleral icterus. No conjunctival pallor. Normocephalic, atraumatic. No pharyngeal erythema. No thyromegaly. CARDIOVASCULAR: S1 and S2 present. No murmurs, rubs, or gallops. PULMONARY: Chest is clear to auscultation, no wheezing or crackles. ABDOMEN: Soft, nontender, nondistended, normoactive bowel sounds. No palpable organomegaly. MUSCULOSKELETAL: No joint swelling or deformity. EXTREMITIES: No cyanosis, clubbing, or pedal edema. Thready left dorsalis pedis pulse NEUROLOGICAL: Gross neurological examination did not reveal any focal deficits. SKIN: No rashes. Assessment and plan Left superficial femoral artery stent occlusion patient reports compliance with his Plavix Left upper popliteal occlusion with reconstruction of the distal popliteal a rtery Diabetes mellitus type 2 Mild acute kidney injury History of atrial fibrillation paroxysmal anticoag with Xarelto Coronary artery disease with prior cardiac stenting Chronic and ongoing nicotine use Hypertension Hyperlipidemia Obstructive sleep apnea without CPAP use History of right peripheral arterial disease with prior femtib bypass Prophylactics DVT prophylaxis IV heparin Full code Plan Vascular surgery and cardiology consultation appreciated Continue IV heparin and recommend holding Xarelto at this time Resume losartan, monitor blood pressure Patient is scheduled to undergo angiogram with possible stenting with Dr. Shaikh Discussed importance of smoking cessation with patient he says he smokes about 3 cigarettes/day refusing nicotine patch at this time. Monitor electrolytes and renal function The impression and plan of care has been dictated by Kourtney Meneses, Nurse Practitioner as directed. Dr. Pravin MD I have performed a history and physical examination and medical decision making of this patient, discussed the same with the dictator, and agree with the dictators assessment and plan as written, documented as a scribe. Based on total visit time, I have performed more than 50% of this visit. Past Medical History Past Medical History: Atrial Fibrillation, Diabetes Mellitus, Deep Vein Thrombosis (DVT), Hyperlipidemia, Hypertension, Prostate Disorder, Sleep Apnea/CPAP/BIPAP, Vascular Disorder Additional Past Medical History / Comment(s): Hx "mini heart attack/scarring long time ago". Cardiomyopathy. PAD. Varicose veins. Enlarged prostate. No CPAP use. History of Any Multi-Drug Resistant Organisms: MRSA Date of last positivie culture/infection: 07/05/21 MDRO Source:: Left Ankle Past Surgical History: Heart Catheterization With Stent, Joint Replacement Additional Past Surgical History / Comment(s): Stent to right leg, vein graft right leg, right femoral bypass, stents to left leg, right hip replacement. Past Anesthesia/Blood Transfusion Reactions: No Reported Reaction Date of Last Stent Placement:: Unknown Past Psychological History: Anxiety Smoking Status: Current every day smoker Past Alcohol Use History: Occasional Additional Past Alcohol Use History / Comment(s): Has been smoking for 30 yrs, down to 1 ppd now. Drinks 2-3 beers daily. Aware no alcohol today. Past Drug Use History: None Reported - Past Family History Mother Family Medical History: Diabetes Mellitus, Hypertension Additional Family Medical History / Comment(s): Family history of varicose veins. Father Family Medical History: CVA/TIA, Myocardial Infarction ([place]) Medications and Allergies Home Medications Medication Instructions Recorded Confirmed Type Metoprolol Tartrate [Lopressor] 25 mg PO DAILY 09/09/22 03/06/24 History Tamsulosin [Flomax] 0.8 mg PO DAILY 09/09/22 03/06/24 History metFORMIN HCL [Glucophage] 500 mg PO BID 09/09/22 03/06/24 History Cholecalciferol (Vitamin D3) 125 mcg PO DAILY 09/10/23 03/06/24 History [Vitamin D3 (125 MCG = 5,000 IU)] FLUoxetine HCL [PROzac] 20 mg PO DAILY 09/10/23 03/06/24 History Pantoprazole [Protonix] 40 mg PO DAILY 02/16/24 03/06/24 History Acetaminophen Tab [Tylenol] 650 mg PO Q6HR PRN tab 02/19/24 03/06/24 Rx Atorvastatin [Lipitor] 40 mg PO HS #30 tab 02/19/24 03/06/24 Rx Clopidogrel [Plavix] 75 mg PO DAILY #30 tab 02/19/24 03/06/24 Rx Losartan [Cozaar] 100 mg PO DAILY #60 tab 02/19/24 03/06/24 Rx Rivaroxaban [Xarelto] 20 mg PO W/SUPPER #30 tab 02/19/24 03/06/24 Rx Allergies Allergy/AdvReac Type Severity Reaction Status Date / Time No Known Allergies Allergy Verified 03/05/24 22:11 Physical Exam Vitals: Vital Signs Temp Pulse Pulse Resp BP BP Pulse Ox 03/06/24 08:00 97.9 F 78 15 156/94 95 03/06/24 04:00 97.6 F 91 20 155/79 95 03/06/24 02:13 98.1 F 91 18 167/108 96 03/06/24 00:17 92 16 142/87 96 03/05/24 23:26 91 16 138/77 94 L 03/05/24 22:06 98.1 F 113 H 22 126/72 99 Intake and Output 03/05/24 03/06/24 03/06/24 22:59 06:59 14:59 Intake Total 101.578 Output Total 300 Balance -300 101.578 Intake: Intake, IV Titration 101.578 Amount Heparin Sod,Pork in 0.45% 101.578 NaCl 25,000 unit In 0.45 % NaCl 1 250ml.bag @ 18 UNITS/KG/HR 14.043 mls/hr IV .[id number] [facility] Rx#: [id number] Output: Urine 300 Other: Voiding Method Urinal Weight 78.018 kg 78.018 kg Results CBC & Chem 7: 03/05/24 22:28 03/06/24 07:49 Labs: Abnormal Lab Results - Last 24 Hours (Table) 03/05/24 03/05/24 03/05/24 Range/Units 22:28 22:28 22:28 WBC 11.0 H (3.8-10.6) k/uL Hgb 12.7 L (13.0-17.5) gm/dL RDW 18.7 H (11.5-15.5) % Neutrophils # 8.5 H (1.3-7.7) k/uL APTT 31.5 H (22.0-30.0) sec Sodium 135 L (137-145) mmol/L Creatinine 1.33 H (0.66-1.25) mg/dL Glucose 105 H (74-99) mg/dL Plasma Lactic Acid Juancarlos (0.7-2.0) mmol/L 03/05/24 03/06/24 Range/Units 22:28 07:49 WBC (3.8-10.6) k/uL Hgb (13.0-17.5) gm/dL RDW (11.5-15.5) % Neutrophils # (1.3-7.7) k/uL APTT 113.1 H* (22.0-30.0) sec Sodium (137-145) mmol/L Creatinine (0.66-1.25) mg/dL Glucose (74-99) mg/dL Plasma Lactic Acid Juancarlos 2.6 H* (0.7-2.0) mmol/L Thrombosis Risk Factor Assmnt - Choose All That Apply Any of the Below Risk Factors Present?: Yes Each Factor Represents 1 point: Varicose veins Each Risk Factor Represents 2 Points: Age 61-74 years Each Risk Factor Represents 3 Points: History of DVT/PE Thrombosis Risk Factor Assessment Total Risk Factor Score: 6 Thrombosis Risk Factor Assessment Level: High Risk Assessment and Plan Time with Patient: Less than 30
[2024-03-06] MEDS: ASPIRIN 325 MG TAB PO PRN (15:36)
[2024-03-06] MEDS: MIDAZOLAM 2 MG/2 ML VIAL IVP ONE (17:00)
[2024-03-06] MEDS: IV FLUID CONTINUATION 1,000 ML IV ONE (17:00)
[2024-03-06] MEDS: fentaNYL (PF) 50 MCG/ML 2 ML AMP IVP ONE (17:00)
[2024-03-06] MEDS: HEPARIN SODIUM,PORCINE 10,000 UNIT in SODIUM CHLORIDE 0.9% 1,000 ML IRRIGATION ONE (17:01)
[2024-03-06] MEDS: LIDOCAINE 1% INJ 10MG/ML (20 ML MDV) SQ ONE (17:29)
[2024-03-06] MEDS: HEPARIN SODIUM 1,000 UN/ML (10ML VL) IVP ONE (17:49)
[2024-03-06] MEDS: IOPAMIDOL-250 100ML BTL INTRAARTER ONE (17:59)
[2024-03-06] MEDS: ALTEPLASE 10 MG in SODIUM CHLORIDE 0.9% 90 ML IV ONE (17:59)
--- NOTE | 2024-03-06 18:16 | P.PCN ---
Description of Procedure: PROCEDURES PERFORMED: Left lower extremity angiography with runoff, EKOS TPA catheter placement, ultrasound guided access INDICATION: Acute limb ischemia with symptoms over the last 2 days CONSENT:I have discussed the risks, benefits and alternative therapies for the above-mentioned procedure and for both sedation/analgesia as well as necessary blood product administration, if indicated, as they pertain to this patient. The patient has indicated understanding and acceptance of the risks and procedures discussed. PROCEDURE: After the risks, benefits and alternatives of the above mentioned procedure explained in detail with the patient, informed consent was obtained. Patient was taken to the catheterization lab and prepped and draped in usual fashion. 1% lidocaine was used to anesthetize the left femoral area. A 6- [place] bright tip sheath was placed in the left femoral artery in antegrade approach using modified Seldinger technique and ultrasound guidance. Through the sheath, left lower extremity angiogram with DSA imaging was obtained. Next, the decision was made to place an EKOS TPA catheter. A 0.035 glide advantage was placed through the prior stents and into the popliteal artery. A 40cm length EKOS TPA infusion catheter was placed from the proximal SFA to popliteal artery. The TPA infusion catheter and EKOS was initiated. The patient tolerated the procedure well. Patient was transported back to the post catheterization holding area in stable condition. Conscious Sedation: Patient was monitored under the direct supervision of vision of myself for conscious sedation using Versed and fentanyl for a total duration of 43 minutes HEMODYNAMICS: Ao: 135/81 Left lower extremity: Left common femoral artery: There is no significant stenosis. Left profunda: There is no significant stenosis. Left SFA: There is a long stent with 100% stenosis at the proximal edge of the stent extending into the popliteal artery Left popliteal artery: There is 100% of the P1 segment and reconstitutes at the P2. Left tibioperoneal trunk: There is no significant stenosis. Left anterior tibial artery: There is no significant stenosis. Left posterior tibial artery: There is no significant stenosis. Left peroneal artery: There is no significant stenosis. FINAL IMPRESSION: 1. Peripheral arterial disease as described above. 2. S/p EKOS TPA infusion catheter PLAN: 1. Aggressive risk factor modification per most recent ACC/AHA guidelines. 2. Tobacco cessation discussed in detail with patient. Patient given referral to [place] Quit Line. 3. Infusion catheter and EKOS overnight and reassess tomorrow.
[2024-03-06 18:58] LABS: Glucose,Whole Blood 84 mg/dL (70-110)
[2024-03-06] MEDS: SODIUM CHLORIDE 0.9% 1,000 ML IV SCH (19:00)
[2024-03-06] MEDS: MORPHINE SULFATE 2 MG/ML SYRINGE IVP PRN (20:40)
[2024-03-06] MEDS: ATORVASTATIN 40 MG TAB PO SCH (20:41)
[2024-03-06] MEDS: SODIUM CHLORIDE 0.9% 1,000 ML in EMPTY BAG 1 BAG IV ONE (22:23)
[2024-03-06] MEDS: ALPRAZolam 0.5 MG TAB PO PRN (22:50)
[2024-03-07 02:09] LABS: Glucose,Whole Blood 101 mg/dL (70-110)
[2024-03-07 02:39] LABS: Anisocytosis Slight; Basophils % (A) 0 %; Eosinophils # (A) 0.2 k/uL (0-0.7); Eosinophils % (A) 2 %; HCT 34.5 % (39.0-53.0); HGB 10.8 gm/dL (13.0-17.5); Hypochromasia Marked; Lymphocytes % (A) 11 %; MCH 26.3 pg (25.0-35.0); MCHC 31.3 g/dL (31.0-37.0); MCV 84.1 fL (80.0-100.0); Mean Platelet Volume 7.7; Monocytes # (A) 0.5 k/uL (0-1.0); Monocytes % (A) 6 %; Neutrophils # (A) 6.6 k/uL (1.3-7.7); Neutrophils % (A) 79 %; Platelet Count 223 k/uL (150-450); RDW 18.9 % (11.5-15.5); WBC 8.3 k/uL (3.8-10.6)
[2024-03-07 04:06] LABS: Anisocytosis Slight; Basophils % (A) 0 %; Eosinophils # (A) 0.2 k/uL (0-0.7); Eosinophils % (A) 2 %; HCT 35.2 % (39.0-53.0); Hypochromasia Marked; Lymphocytes # (A) 0.9 k/uL (1.0-4.8); Lymphocytes % (A) 10 %; MCH 26.4 pg (25.0-35.0); MCHC 31.3 g/dL (31.0-37.0); MCV 84.2 fL (80.0-100.0); Mean Platelet Volume 7.6; Monocytes # (A) 0.4 k/uL (0-1.0); Monocytes % (A) 5 %; Neutrophils % (A) 81 %; Platelet Count 236 k/uL (150-450); RBC 4.19 m/uL (4.30-5.90); RDW 18.7 % (11.5-15.5); WBC 8.6 k/uL (3.8-10.6)
[2024-03-07 04:08] LABS: African American GFR (CKD) 88 (>60 ml/min/1.73 sqM); Anion Gap 7 mmol/L; Blood Urea Nitrogen 14 mg/dL (9-20); Calcium 8.4 mg/dL (8.4-10.2); Carbon Dioxide 22 mmol/L (22-30); Chloride 105 mmol/L (98-107); Glucose 97 mg/dL (74-99); Non-African American GFR(CKD) 76 (>60 ml/min/1.73 sqM); Potassium 4.4 mmol/L (3.5-5.1); Sodium 134 mmol/L (137-145)
[2024-03-07] MEDS ORDERED: ASPIRIN 325 MG TAB PO PRN (07:00)
--- NOTE | 2024-03-07 07:23 | IR ---
EXAMINATION TYPE: IR transcath infusion therapy DATE OF EXAM: 03/06/2024 6:38 PM COMPARISON: Pre Operative Images if available both CT/MRI or plain film CLINICAL INDICATION: Male, 63 years old with history of leg pain, 10.1m/12.8DAP, lt gr sheath sutured in TPA infus; TECHNIQUE: IR transcath infusion therapy, multiple fluoroscopic images provided for procedure. Total fluoroscopy time: 10.1 minutes Total submitted images to PACS: 0 DAP: 12.8 mGym2 Gycm2 uGym2 cGycm2 or equivalent. FINDINGS: IMPRESSION: 1. Report was generated for administrative purposes only. 2. Please see the operative/procedural note for further details. [facility], , 03/07/2024 7:21 AM
--- NOTE | 2024-03-07 08:42 | P.PN ---
Subjective Progress Note Date: 03/07/24 HPI: [This patient has significant critical limb ischemia on the left side where he had a previous SFA stent. He was evaluated by me yesterday and late evening underwent angiogram by Dr. Shaikh who also initiated tPA infusion and EKOS catheter placement. He is still oozing from the groin hemoglobin is about 11 hemodynamically stable in sinus rhythm. He is going to have a recheck at 10:30 AM today to see if there is any perfusion in the leg patient actually feels better the leg is warmer than yesterday]. PHYSICIAL EXAM: [Vitals are stable S1-S2 heard normally short systolic murmur noted lungs reveal decent air entry abdomen is soft left groin has catheter but there is some oozing.]. IMPRESSION: 1. [Severe peripheral arterial disease with previous bypass on the right side and SFA stenting on the left side came in with critical limb ischemia]. 2. []. 3. []. 4. []. 5. []. RECOMMENDATIONS: [Patient is currently receiving EKOS and tPA infusion and will go for a recheck at 1030. Management in this regard by Dr. Shaikh. No new suggestions patient appears to be stable.]. Objective - Vital Signs Vital signs: Vital Signs Temp 97.9 F 03/07/24 04:00 Pulse 73 03/07/24 06:40 Resp 12 03/07/24 06:40 BP 158/93 03/07/24 06:20 Pulse Ox 96 03/07/24 06:40 FiO2 Intake & Output 03/06/24 03/07/24 03/07/24 18:59 06:59 18:59 Intake Total 441.948 8211 Output Total 850 1050 Balance 101.828 449 Weight 73 kg Intake: IV 220.25 30 Invasive Line 1 20 30 Intake, IV Titration 102.613 8957 Amount Heparin Sod,Pork in 0.45% 101.578 NaCl 25,000 unit In 0.45 % NaCl 1 250ml.bag @ 18 UNITS/KG/HR 14.043 mls/hr IV .[id number] [facility] Rx#: [id number] Sodium Chloride 0.9% 1, 770 000 ml @ 70 mls/hr IV . [id number] [facility] Rx#:[id number] Sodium Chloride 0.9% 1, 699 000 ml In Empty Bag 1 bag @ 1 ML/KG/HR 78.018 mls/ hr IV .[id number] [facility] Rx#: [id number] Oral 630 Output: Urine 850 1050 Other: Voiding Method Urinal Urinal # Voids 2 - Labs CBC & Chem 7: 03/07/24 03:32 03/07/24 03:32 Labs: Abnormal Lab Results - Last 24 Hours (Table) 03/06/24 03/06/24 03/06/24 Range/Units 07:49 07:49 11:32 RBC (4.30-5.90) m/uL Hgb (13.0-17.5) gm/dL Hct (39.0-53.0) % RDW (11.5-15.5) % Lymphocytes # (1.0-4.8) k/uL APTT 113.1 H* (22.0-30.0) sec Sodium 136 L (137-145) mmol/L POC Glucose (mg/dL) 137 H (70-110) mg/dL 03/06/24 03/07/24 03/07/24 Range/Units 18:53 01:27 03:32 RBC 4.10 L 4.19 L (4.30-5.90) m/uL Hgb 10.8 L 11.0 L (13.0-17.5) gm/dL Hct 34.5 L 35.2 L (39.0-53.0) % RDW 18.9 H 18.7 H (11.5-15.5) % Lymphocytes # 0.9 L (1.0-4.8) k/uL APTT 60.7 H (22.0-30.0) sec Sodium (137-145) mmol/L POC Glucose (mg/dL) (70-110) mg/dL 03/07/24 Range/Units 03:32 RBC (4.30-5.90) m/uL Hgb (13.0-17.5) gm/dL Hct (39.0-53.0) % RDW (11.5-15.5) % Lymphocytes # (1.0-4.8) k/uL APTT (22.0-30.0) sec Sodium 134 L (137-145) mmol/L POC Glucose (mg/dL) (70-110) mg/dL
[2024-03-07 08:54] LABS: Anisocytosis Slight; Basophils % (A) 0 %; Eosinophils # (A) 0.2 k/uL (0-0.7); Eosinophils % (A) 3 %; HCT 34.7 % (39.0-53.0); HGB 10.7 gm/dL (13.0-17.5); Hypochromasia Marked; Lymphocytes # (A) 1.1 k/uL (1.0-4.8); Lymphocytes % (A) 17 %; MCHC 30.9 g/dL (31.0-37.0); MCV 84.1 fL (80.0-100.0); Mean Platelet Volume 7.8; Microcytosis Slight; Monocytes # (A) 0.4 k/uL (0-1.0); Monocytes % (A) 6 %; Neutrophils # (A) 4.7 k/uL (1.3-7.7); Neutrophils % (A) 73 %; Platelet Count 229 k/uL (150-450); RBC 4.12 m/uL (4.30-5.90); RDW 18.9 % (11.5-15.5); WBC 6.5 k/uL (3.8-10.6)
[2024-03-07] MEDS ORDERED: PANTOPRAZOLE 40 MG TABLET PO SCH (09:00)
[2024-03-07] MEDS ORDERED: LOSARTAN 50 MG TAB PO SCH (09:00)
[2024-03-07] MEDS: TAMSULOSIN 0.4 MG CAP.ER.24H PO SCH (09:19)
[2024-03-07] MEDS: FLUoxetine HCL 20 MG CAP PO SCH (09:19)
[2024-03-07] MEDS: IV FLUID CONTINUATION 1,000 ML IV ONE (10:45)
[2024-03-07] MEDS: fentaNYL (PF) 50 MCG/ML 2 ML AMP IVP ONE (10:48)
[2024-03-07] MEDS: MIDAZOLAM 2 MG/2 ML VIAL IVP ONE (10:48)
[2024-03-07] MEDS: HEPARIN SODIUM 1,000 UN/ML (10ML VL) IV ONE (10:55)
[2024-03-07] MEDS: HEPARIN SODIUM,PORCINE (1 ML) 2,500 UNIT in SODIUM CHLORIDE 0.9% 250 ML IRRIGATION PRN (10:58)
[2024-03-07] MEDS: HEPARIN SODIUM,PORCINE 10,000 UNIT in SODIUM CHLORIDE 0.9% 1,000 ML IRRIGATION PRN (10:58)
[2024-03-07] MEDS: SODIUM CHLORIDE 0.9% 1,000 ML IV ONE ×2 (12:03→22:46)
[2024-03-07] MEDS: IOPAMIDOL-370 100ML BTL INJ ONE (12:03)
[2024-03-07] MEDS: CLOPIDOGREL 75 MG TAB PO STA (12:48)
--- NOTE | 2024-03-07 12:49 | P.PCN ---
Description of Procedure: PROCEDURES PERFORMED: Left lower extremity angiography with runoff, proximal left SFA Zilver LYUBOV with 7.0 x 40mm and 7.0 x 60mm LYUBOV, IVUS left SFA, Penumbra aspiration thrombectomy left SFA, Spider 5.0mm placement, Hawkone directional atherectomy left SFA INDICATION: Acute limb ischemia with symptoms over the last 3 days, s/p EKOS TPA catheter placement CONSENT:I have discussed the risks, benefits and alternative therapies for the above-mentioned procedure and for both sedation/analgesia as well as necessary blood product administration, if indicated, as they pertain to this patient. The patient has indicated understanding and acceptance of the risks and procedures discussed. PROCEDURE: After the risks, benefits and alternatives of the above mentioned procedure explained in detail with the patient, informed consent was obtained. Patient was taken to the catheterization lab and prepped and draped in usual fashion. A 6-Mauritanian bright tip sheath had previously been placed in the left femoral artery in antegrade approach. The left SFA TPA catheter was exchanged for a 0.014 BMW wire. Through the sheath, left lower extremity angiogram with DSA imaging was obtained. Next, the decision was made to perform angioplasty with majority of disease related to proximal stenosis and what appeared to be subacute organized thrombus. A 5.0mm Spider embolic protection device was placed in the left popliteal artery. Penumbra aspiration thrombectomy was attempted without much success. Balloon angioplasty was performed with a 6.0mm Chocolate balloon however still organized thrombus and concern of possibly embolizing or shifting up into the bifurcation. Therefore decision made to perform directional atherectomy of the proximal edge of the stent with specific care not to be close to the stent. This did help to some degree with thrombus burden. Next decision made to place a Zilver 7.0 x 40mm LYUBOV which was placed in the proximal edge of the stent however had significant foreshortening and some stent deformation. The stent was post dilated with a 3.0mm balloon and a 7.0mm balloon however still some stent deformation and therefore decision made to perform additional LYUBOV. An additional 7.0 x 60mm Zilver LYUBOV was placed in the proximal edge of the left SFA stent. The stent was post dilated with a 7.0mm balloon. Final angiograms were performed. Preintervention there was 90% stenosis and slow antegrade flow and post intervention there was 10% proximal stenosis and brisk, uninhibited runoff. The patient tolerated the procedure well. Patient was transported back to the post catheterization holding area in stable condition. Conscious Sedation: Patient was monitored under the direct supervision of vision of myself for conscious sedation using Versed and fentanyl for a total duration of 93 minutes HEMODYNAMICS: Ao: 141/84 Left lower extremity: Left common femoral artery: There is no significant stenosis. Left profunda: There is no significant stenosis. Left SFA: There is a long stent with proximal 90% stenosis at the proximal edge of the stent and otherwise mid 20-30% stenosis Left popliteal artery: There is an aneurysmal portion of the left popliteal artery. Left tibioperoneal trunk: There is no significant stenosis. Left anterior tibial artery: There is no significant stenosis. Left posterior tibial artery: There is no significant stenosis. Left peroneal artery: There is no significant stenosis. FINAL IMPRESSION: 1. Peripheral arterial disease as described above. 2. S/p proximal left SFA Zilver LYUBOV with 7.0 x 40mm and 7.0 x 60mm LYUBOV PLAN: 1. Aggressive risk factor modification per most recent ACC/AHA guidelines. 2. Tobacco cessation discussed in detail with patient. Patient given referral to [place] [facility]. 3. Continue Plavix and Xarelto for 6 months
--- NOTE | 2024-03-07 15:14 | IR ---
EXAMINATION TYPE: IR stent intravas non coronary DATE OF EXAM: 03/07/2024 2:58 PM COMPARISON: Pre Operative Images if available both CT/MRI or plain film CLINICAL INDICATION: Male, 63 years old with history of left leg pain, 18.5min fluoro, 16.1Gycm2; TECHNIQUE: IR stent intravas non coronary, multiple fluoroscopic images provided for procedure. Total fluoroscopy time: 18.5 seconds Total submitted images to PACS: 850 DAP: 16.1 mGym2 Gycm2 uGym2 cGycm2 or equivalent. FINDINGS: IMPRESSION: 1. Report was generated for administrative purposes only. 2. Please see the operative/procedural note for further details. [facility], , 03/07/2024 3:11 PM
[2024-03-07] MEDS: ASPIRIN 325 MG TAB PO STA (16:50)
--- NOTE | 2024-03-07 19:03 | P.PN ---
Subjective Progress Note Date: 03/07/24 This is a pleasant 63-year-old male with medical history significant for peripheral arterial disease, chronic nicotine use, atrial fibrillation, diabetes mellitus, hypertension, hyperlipidemia, obstructive sleep apnea. Coronary artery disease with prior cardiac stenting. Patient comes into the hospital with complaints of severe left leg pain. He was in the hospital in January 2024 and underwent stenting of the left SFA with Dr. Shaikh. Since the procedure patient was continued on Plavix and Xarelto which he reports compliance with these medications. He did report some degree of numbness to the left leg but has also stated that he does have peripheral neuropathy. Over the last week he has experienced severe pain to his left leg starting in the thigh and now down into the foot ankle and states that in the last couple days it has been cramping in the calf when he has been attempting to ambulate. He came in for further evaluation. CT angiography of the left lower extremity reveals c omplete occlusion of the stented superficial femoral artery, complete occlusion of the upper popliteal artery with reconstruction of flow in the distal popliteal artery, dominant runoff to the ankle by the anterior and posterior tibial arteries. Majority of the peroneal artery appears patent but flow has not come from the level of the ankle. There is severe stenosis in the proximal left internal iliac artery with occlusion distally. There is mild aneurysmal dilation of the visualized distal abdominal aorta measuring 3 cm. He was admitted to the hospital under internal medicine with a consult placed to cardiology and vascular services. He is started on IV heparin and Xarelto is currently placed on hold. Did discuss with patient to bedside the importance of smoking cessation and he is agreeing. 03/07/2024 Patient is seen in follow-up today continues in the ICU with cardiology and vas cular surgery following maintained on IV heparin. Patient undergoing EKOS and plans on reevaluation with Dr. hSaikh in the [facility] today. Will evaluate for further intervention required. Patient to continue telemetry monitoring and is currently stable. Patient sodium mildly low at 134 and will follow-up on repeat labs as creatinine is also 1.05. Blood sugars controlled and hemoglobin is 10.7, platelets 229. Patient is afebrile and white count normal with no reports of chest pain or palpitations. Patient currently n.p.o. for the procedure. Will await official report. review of systems: Constitutional: No reports of fatigue, fever, or chills Cardiovascular: No reports of chest pain or palpitations Respiratory: No reports of shortness of breath or cough GI: No reports of nausea, vomiting, or diarrhea : No reports of dysuria or retention Neurovascular: No reports of weakness or numbness All medications have been reviewed PHYSICAL EXAMINATION: GENERAL: The patient is alert and oriented x3, not in any acute distress. Well developed, well nourished. HEENT: Pupils are round and equally reacting to light. EOMI. No scleral icterus. No conjunctival pallor. Normocephalic, atraumatic. No pharyngeal erythema. No thyromegaly. CARDIOVASCULAR: S1 and S2 present. No murmurs, rubs, or gallops. PULMONARY: Chest is clear to auscultation, no wheezing or crackles. ABDOMEN: Soft, nontender, nondistended, normoactive bowel sounds. No palpable organomegaly. MUSCULOSKELETAL: No joint swelling or deformity. EXTREMITIES: No cyanosis, clubbing, or pedal edema. Thready left dorsalis pedis pulse NEUROLOGICAL: Gross neurological examination did not reveal any focal deficits. SKIN: No rashes. Assessment: Left superficial femoral artery stent occlusion, patient reports compliance with his Plavix, scheduled to undergo reevaluation in [facility] with Dr. Shaikh today 03/07/2024 Left upper popliteal occlusion with reconstruction of the distal popliteal artery Diabetes mellitus type 2 Mild acute kidney injury History of atrial fibrillation paroxysmal anticoag with Xarelto Coronary artery disease with prior cardiac stenting Chronic and ongoing nicotine use Hypertension Hyperlipidemia Obstructive sleep apnea without CPAP use History of right peripheral arterial disease with prior femtib bypass GI prophylaxis DVT prophylaxis, continued on IV heparin Full code Plan: Vascular surgery and cardiology following and patient is scheduled to undergo angiogram with possible stenting with reevaluation of EKOS with Dr. Shaikh in the [facility] today. Patient is currently n.p.o. and recommend to monitor blood sugars closely. Will resume diet once cleared by cardiology Continue IV heparin and recommend holding Xarelto at this time. To discuss further with cardiology after intervention when patient will resume Plavix and Xarelto Resume losartan, monitor blood pressure Discussed importance of smoking cessation with patient he says he smokes about 3 cigarettes/day refusing nicotine patch at this time. Will follow-up with repeat labs and monitor kidney functions and electrolytes. Creatinine 1.0 today Monitor hemoglobin closely and any bleeding noted to the site. The impression and plan of care has been dictated by Breanne Bo, Nurse Practitioner as directed. Dr. Pravin MD I have performed a history and physical examination and medical decision making of this patient, discussed the same with the dictator, and agree with the dictators assessment and plan as written, documented as a scribe. Based on total visit time, I have performed more than 50% of this visit. Objective - Vital Signs Vital signs: Vital Signs Temp 97.9 F 03/07/24 04:00 Pulse 73 03/07/24 06:40 Resp 12 03/07/24 06:40 BP 158/93 03/07/24 06:20 Pulse Ox 96 03/07/24 06:40 FiO2 Intake & Output 03/06/24 03/07/24 03/07/24 18:59 06:59 18:59 Intake Total 217.228 7497 Output Total 850 1050 Balance 101.828 449 Weight 73 kg Intake: IV 220.25 30 Invasive Line 1 20 30 Intake, IV Titration 684.368 0682 Amount Heparin Sod,Pork in 0.45% 101.578 NaCl 25,000 unit In 0.45 % NaCl 1 250ml.bag @ 18 UNITS/KG/HR 14.043 mls/hr IV .[id number] [facility] Rx#: [id number] Sodium Chloride 0.9% 1, 770 000 ml @ 70 mls/hr IV . [id number] [facility] Rx#:[id number] Sodium Chloride 0.9% 1, 699 000 ml In Empty Bag 1 bag @ 1 ML/KG/HR 78.018 mls/ hr IV .[id number] [facility] Rx#: [id number] Oral 630 Output: Urine 850 1050 Other: Voiding Method Urinal Urinal # Voids 2 - Labs CBC & Chem 7: 03/07/24 08:35 03/07/24 03:32 Labs: Abnormal Lab Results - Last 24 Hours (Table) 03/06/24 03/06/24 03/06/24 Range/Units 07:49 11:32 18:53 RBC (4.30-5.90) m/uL Hgb (13.0-17.5) gm/dL Hct (39.0-53.0) % MCHC (31.0-37.0) g/dL RDW (11.5-15.5) % Lymphocytes # (1.0-4.8) k/uL APTT 60.7 H (22.0-30.0) sec Sodium 136 L (137-145) mmol/L POC Glucose (mg/dL) 137 H (70-110) mg/dL 03/07/24 03/07/24 03/07/24 Range/Units 01:27 03:32 03:32 RBC 4.10 L 4.19 L (4.30-5.90) m/uL Hgb 10.8 L 11.0 L (13.0-17.5) gm/dL Hct 34.5 L 35.2 L (39.0-53.0) % MCHC (31.0-37.0) g/dL RDW 18.9 H 18.7 H (11.5-15.5) % Lymphocytes # 0.9 L (1.0-4.8) k/uL APTT (22.0-30.0) sec Sodium 134 L (137-145) mmol/L POC Glucose (mg/dL) (70-110) mg/dL 03/07/24 Range/Units 08:35 RBC 4.12 L (4.30-5.90) m/uL Hgb 10.7 L (13.0-17.5) gm/dL Hct 34.7 L (39.0-53.0) % MCHC 30.9 L (31.0-37.0) g/dL RDW 18.9 H (11.5-15.5) % Lymphocytes # (1.0-4.8) k/uL APTT (22.0-30.0) sec Sodium (137-145) mmol/L POC Glucose (mg/dL) (70-110) mg/dL
[2024-03-07 21:07] LABS: Glucose,Whole Blood 163 mg/dL (70-110)
[2024-03-08] MEDS: HYDROmorphone 0.5 MG/0.5 ML SYRINGE IVP PRN (02:00)
[2024-03-08 06:17] LABS: Glucose,Whole Blood 188 mg/dL (70-110)
[2024-03-08 07:39] LABS: Anisocytosis Slight; Basophils % (A) 0 %; Eosinophils % (A) 0 %; HCT 23.4 % (39.0-53.0); Hypochromasia Marked; Lymphocytes # (A) 0.7 k/uL (1.0-4.8); Lymphocytes % (A) 7 %; MCH 26.4 pg (25.0-35.0); MCHC 30.2 g/dL (31.0-37.0); MCV 87.5 fL (80.0-100.0); Mean Platelet Volume 8.7; Monocytes # (A) 0.4 k/uL (0-1.0); Monocytes % (A) 4 %; Neutrophils # (A) 8.3 k/uL (1.3-7.7); Neutrophils % (A) 88 %; Platelet Count 226 k/uL (150-450); RBC 2.67 m/uL (4.30-5.90); WBC 9.4 k/uL (3.8-10.6)
[2024-03-08 08:02] LABS: African American GFR (CKD) 62 (>60 ml/min/1.73 sqM); Anion Gap 11 mmol/L; Blood Urea Nitrogen 15 mg/dL (9-20); Carbon Dioxide 13 mmol/L (22-30); Chloride 109 mmol/L (98-107); Glucose 235 mg/dL (74-99); Non-African American GFR(CKD) 53 (>60 ml/min/1.73 sqM); Potassium 4.9 mmol/L (3.5-5.1); Sodium 133 mmol/L (137-145)
[2024-03-08 08:08] LABS: HGB 7.1 gm/dL (13.0-17.5)
[2024-03-08] MEDS: SODIUM CHLORIDE 0.9% 1,000 ML IV ONE (08:29)
--- NOTE | 2024-03-08 09:01 | XR ---
EXAMINATION TYPE: XR abdomen 1V DATE OF EXAM: 03/08/2024 8:52 AM COMPARISON: 03/05/2024 CLINICAL INDICATION: Male, 63 years old with history of SUDDEN ONSET ABDOMINAL / GROIN PAIN; [facility] TECHNIQUE: One radiographic view of the abdomen was obtained. FINDINGS: The bowel gas pattern is nonspecific without dilated loops of small or large bowel. . Fecal material and gas are demonstrated throughout the colon and rectum. There is no evidence for organome koko or pneumoperitoneum. No acute osseous process. No abnormal calcifications are present. Right h ip arthroplasty appears intact. Upper thigh Present. Multilevel degenerative changes present. Atherosclerosis of the arterial vasculature. IMPRESSION: Nonspecific bowel gas pattern without radiographic evidence for acute process. [facility], , 03/08/2024 8:58 AM
[2024-03-08] MEDS: SODIUM CHLORIDE 0.9% 500 ML 500 ML IV ONE (09:48)
[2024-03-08] MEDS: ASPIRIN 81 MG PO SCH (09:51)
--- NOTE | 2024-03-08 10:34 | CT ---
EXAMINATION TYPE: CT noncontrast chest abdomen pelvis. CT angio thor/abd pel aorta DATE OF EXAM: 03/08/2024 9:09 AM COMPARISON: 01/22/2024. CLINICAL INDICATION: Male, 63 years old with history of sudden onset pain to abdomen/groin; PHH, Sudd en onset of pain abdomen to groin, had cath done yesterday, pain in LT groin. TECHNIQUE: Noncontrast CT chest followed by CT angiogram chest abdomen pelvis. A noncontrast CT chest Multiple a xial CT images of the chest, abdomen, and pelvis were obtained prior to and after the administration of IV contrast. 3-D reformats and maximum intensity projection format were performed on a separate [employer] rkstation. . Contrast used:80 mL of Isovue 370 with IV Contrast, Oral contrast used: CT DLP: 1827.4 mGycm, Automated exposure control for dose reduction was used. FINDINGS: ARTERIAL VASCULATURE: Active extravasation from the left external iliac artery approximately 2.8 cm a aimee the inferior epigastric origin. There is severe atherosclerosis of the arterial vasculature. The remainder of the arterial vasculature the. Noncontrast imaging fails to demonstrate intramural hemat sandra. Scattered atherosclerotic plaque throughout the aorta. There is a 4 vessel aortic arch. Celiac a xis, superior mesenteric artery and inferior mesenteric arteries are patent. Infrarenal abdominal aor tic dilation up to 3.0 cm. The bilateral renal arteries are patent. PULMONARY ARTERIAL VASCULATURE: Normal caliber. No evidence of filling defect to suggest pulmonary em bolus. VENOUS SYSTEM: Unremarkable. LUNGS/ PLEURA: No focal consolidation, pneumothorax or pleural effusion. AIRWAY: Patent and unremarkable. HEART: Size within normal limits. Aortic valve consultations and aortic coronary artery calcification s. MEDIASTINUM: No gross evidence of adenopathy. MUSCULOSKELETAL: No acute osseous abnormalities SOFT TISSUES/LYMPH NODES: Unremarkable. LOWER NECK: No significant findings. Abdomen: LIVER: Unremarkable GALLBLADDER AND BILE DUCTS: Unremarkable. PANCREAS: Unremarkable. SPLEEN: Unremarkable. ADRENAL GLANDS: Unremarkable. KIDNEYS AND URETERS: No evidence of hydronephrosis or obstructive calculus. There are bilateral nonob structing calculi can't be present. Right ureter is unremarkable with ureter is poorly visualized. PELVIS BLADDER: Unremarkable REPRODUCTIVE: Unremarkable. ABDOMEN & PELVIS STOMACH AND BOWEL: No evidence of bowel obstruction. PERITONEUM/RETROPERITONEUM: No evidence of pneumoperitoneum ill-defined irregular high density blood products seen in the left retroperitoneum extending along the psoas down towards the pelvis and into the left inguinal canal/scrotum. There is blush of contrast is findings compatible with active extrav asation. MUSCULOSKELETAL: No acute osseous abnormalities. Moderate disc degeneration changes are present throu ghout the thoracolumbar spine. Right hip arthroplasty is present. Arthroplasty appears intact. LYMPH NODES: No gross evidence for lymphadenopathy. SOFT TISSUE/ABDOMINAL WALL: Fat-containing right inguinal hernia. Blood products in the left inguinal canal.r IMPRESSION: Active extravasation of the left external iliac artery 2.8 cm above the inferior epigastric takeoff w ith blood products extending out through the retroperitoneum along the psoas muscle and into the left inguinal canal and left scrotum. Infrarenal abdominal aortic aneurysm to 30 mm. Moderate to severe atherosclerotic disease of the aorta and arterial vasculature. Findings communicated to [facility] and Earle Vergara on 03/08/2024 10:[address] Sanam Mooney. [facility], , 03/08/2024 10:32 AM
[2024-03-08] MEDS: IV FLUID CONTINUATION 1,000 ML IV ONE (11:45)
[2024-03-08] MEDS: fentaNYL (PF) 50 MCG/ML 2 ML AMP IVP ONE ×2 (11:50→13:26)
[2024-03-08] MEDS: MIDAZOLAM 2 MG/2 ML VIAL IVP ONE ×2 (11:50→13:26)
[2024-03-08] MEDS: LIDOCAINE 1% INJ 10MG/ML (20 ML MDV) SQ ONE (11:52)
[2024-03-08] MEDS: VERAPAMIL SYRINGE (5 MG/10 ML) INTRAARTER ONE (11:54)
[2024-03-08] MEDS ORDERED: NALOXONE 0.4 MG/ML 1 ML VIAL IVP PRN (13:32)
--- NOTE | 2024-03-08 13:32 | P.PCN ---
Description of Procedure: PROCEDURES PERFORMED: Left lower extremity angiogram, balloon tamponade of left illiac artery INDICATION: Retroperitoneal bleed, s/p antegrade left femoral arterial access CONSENT:I have discussed the risks, benefits and alternative therapies for the above-mentioned procedure and for both sedation/analgesia as well as necessary blood product administration, if indicated, as they pertain to this patient. The patient has indicated understanding and acceptance of the risks and procedures discussed. PROCEDURE: After the risks, benefits and alternatives of the above mentioned procedure explained in detail with the patient, informed consent was obtained. Patient was taken to the catheterization lab and prepped and draped in usual fashion. 1% lidocaine was used to anesthetize the left radial area. A 6-English sheath was placed in the left radial artery using modified Seldinger technique. A 5-English pigtail catheter was inserted to the left common illiac artery and angiography was performed which demonstrated leak and extravasation. Therefore the decision was made to perform balloon tamponade. Given multiple issues with instent thrombosis attempted to not perform covered stenting. A 7.0 x 100mm balloon was advanced into the left illiac and left common femoral area and balloon tamponade was performed for 15 minutes. Repeat angiography showed continued extravasation. Balloon tamponade was then performed with a 7.0 x 150mm balloon for 25 mins with improvement and then finally an additional 7.0 x 100mm balloon with no further significant extravasation. The radial sheath was removed and hemostasis was achieved. The patient tolerated the procedure well. Patient was transported back to the post catheterization holding area in stable condition. Conscious Sedation: Patient was monitored under the direct supervision of vision of myself for conscious sedation using Versed and fentanyl for a total duration of 97 minutes HEMODYNAMICS: Ao: 132/71 Left lower extremity: Left common iliac artery: There is no significant stenosis with some ectasia. Left external iliac artery: There is 30-40% diffuse stenosis. There is extravasation of the distal external illiac artery. Left internal iliac artery: There is 100% stenosis. Left common femoral artery: There is diffuse 30-40% stenosis. Left profunda: There is no significant stenosis. Left SFA: There is patent proximal left SFA stent. Left popliteal artery: Not imaged Left tibioperoneal trunk: Not imaged. Left anterior tibial artery: Not imaged Left posterior tibial artery: Not imaged Left peroneal artery: Not imaged FINAL IMPRESSION: 1. Left external illiac artery bleed s/p balloon tamponade PLAN: 1. Aggressive risk factor modification per most recent ACC/AHA guidelines. 2. Monitor left femoral site and hemoglobin.
[2024-03-08] MEDS: IOPAMIDOL-300 100ML BTL INJ ONE (13:46)
[2024-03-08 14:12] LABS: Anisocytosis Slight; Basophils % (A) 0 %; Eosinophils % (A) 0 %; HCT 23.3 % (39.0-53.0); HGB 7.4 gm/dL (13.0-17.5); Hypochromasia Moderate; Lymphocytes # (A) 0.5 k/uL (1.0-4.8); Lymphocytes % (A) 4 %; MCH 27.4 pg (25.0-35.0); MCHC 31.6 g/dL (31.0-37.0); MCV 86.9 fL (80.0-100.0); Monocytes # (A) 0.3 k/uL (0-1.0); Monocytes % (A) 2 %; Neutrophils # (A) 12.1 k/uL (1.3-7.7); Neutrophils % (A) 94 %; Platelet Count 183 k/uL (150-450); RBC 2.69 m/uL (4.30-5.90); RDW 18.5 % (11.5-15.5)
--- NOTE | 2024-03-08 14:14 | IR ---
EXAMINATION TYPE: IR sloop captain iliac DATE OF EXAM: 03/08/2024 2:04 PM COMPARISON: Pre Operative Images if available both CT/MRI or plain film CLINICAL INDICATION: Male, 63 years old with history of ARTERIAL EXTRAVIZATION; TECHNIQUE: IR sloop captain iliac, multiple fluoroscopic images provided for procedure. Total fluoroscopy time: 18.5 seconds Total submitted images to PACS: 850 DAP: 16.1 mGym2 Gycm2 uGym2 cGycm2 or equivalent. FINDINGS: IMPRESSION: 1. Report was generated for administrative purposes only. 2. Please see the operative/procedural note for further details. [facility], , 03/08/2024 2:11 PM
[2024-03-08] MEDS: SODIUM CHLORIDE 0.9% 1,000 ML IV SCH (14:27)
[2024-03-08] MEDS: CLOPIDOGREL 75 MG TAB PO SCH (15:31)
--- NOTE | 2024-03-08 16:18 | P.PN ---
Subjective Progress Note Date: 03/08/24 This is a pleasant 63-year-old male with medical history significant for peripheral arterial disease, chronic nicotine use, atrial fibrillation, diabetes mellitus, hypertension, hyperlipidemia, obstructive sleep apnea. Coronary artery disease with prior cardiac stenting. Patient comes into the hospital w ith complaints of severe left leg pain. He was in the hospital in January 2024 and underwent stenting of the left SFA with Dr. Shaikh. Since the procedure patient was continued on Plavix and Xarelto which he reports compliance with these medications. He did report some degree of numbness to the left leg but has also stated that he does have peripheral neuropathy. Over the last week he has experienced severe pain to his left leg starting in the thigh and now down into the foot ankle and states that in the last couple days it has been cramping in the calf when he has been attempting to ambulate. He came in for further evaluation. CT angiography of the left lower extremity reveals complete occlusion of the stented superficial femoral artery, complete occlusion of the upper popliteal artery with reconstruction of flow in the distal popliteal artery, dominant runoff to the ankle by the anterior and posterior tibial arteries. Majority of the peroneal artery appears patent but flow has not come from the level of the ankle. There is severe stenosis in the proximal left internal iliac artery with occlusion distally. There is mild aneurysmal dilation of the visualized distal abdominal aorta measuring 3 cm. He was admitted to the hospital under internal medicine with a consult placed to cardiology and vascular services. He is started on IV heparin and Xarelto is currently placed on hold. Did discuss with patient to bedside the importance of smoking cessation and he is agreeing. 03/07/2024 Patient is seen in follow-up today continues in the ICU with cardiology and vascular surgery following maintained on IV heparin. Patient undergoing EKOS and plans on reevaluation with Dr. Shaikh in the [facility] today. Will evaluate for further intervention required. Patient to continue telemetry monitoring and is currently stable. Patient sodium mildly low at 134 and will f ollow-up on repeat labs as creatinine is also 1.05. Blood sugars controlled and hemoglobin is 10.7, platelets 229. Patient is afebrile and white count normal with no reports of chest pain or palpitations. Patient currently n.p.o. for the procedure. Will await official report. 03/08/2024 Patient is evaluated today in follow up on the cardiac stepdown unit. He is status post stenting of the left SFA occluded graft. Patient will continue on dual antiplatelet therapy with Plavix and Xarelto for at least the next 6 months. Throughout the evening patient was up ambulating to the restroom and felt a pop in his left groin and now is on bedrest with severe pain to the left groin there is a slight bulge noted additionally patient was diaphoretic clammy and had a drop in blood pressure down to 87/59. He was given fluid bolus stat blood count reveals a hemoglobin of 7.1 which is a 3 g drop since yesterday he was given 1 unit of packed red blood cells and had stat CT imaging completed which reveals acute extravasation of the left external iliac artery 2.8 cm above the inferior epigastric takeoff with blood products extending out to the retroperitoneum along the psoas muscle and into the left inguinal canal and left scrotum. Peripheral interventionalists notified and patient underwent balloon tamponade of the left external iliac artery bleed. Blood pressure up to 144/82. review of systems: Constitutional: No reports of fatigue, fever, or chills Cardiovascular: No reports of chest pain or palpitations Respiratory: No reports of shortness of breath or cough GI: No reports of nausea, vomiting, or diarrhea : No reports of dysuria or retention Neurovascular: No reports of weakness or numbness All medications have been reviewed PHYSICAL EXAMINATION: GENERAL: The patient is alert and oriented x3, not in any acute distress. Well developed, well nourished. HEENT: Pupils are round and equally reacting to light. EOMI. No scleral icterus. No conjunctival pallor. Normocephalic, atraumatic. No pharyngeal erythema. No thyromegaly. CARDIOVASCULAR: S1 and S2 present. No murmurs, rubs, or gallops. PULMONARY: Chest is clear to auscultation, no wheezing or crackles. ABDOMEN: Soft, nontender, nondistended, normoactive bowel sounds. No palpable organomegaly. MUSCULOSKELETAL: No joint swelling or deformity. EXTREMITIES: No cyanosis, clubbing, or pedal edema. Hematoma to the left groin, no obvious bruising noted. NEUROLOGICAL: Gross neurological examination did not reveal any focal deficits. SKIN: No rashes. Assessment: Left superficial femoral artery stent occlusion status post stenting of the left SFA Acute external iliac/retroperitoneal bleed requiring emergent balloon tamponade. Acute blood loss anemia due to above hgb down to 7.1 status post 1 unit PRBC Left upper popliteal occlusion with reconstruction of the distal popliteal artery Diabetes mellitus type 2 Mild acute kidney injury History of atrial fibrillation paroxysmal anticoag with Xarelto Coronary artery disease with prior cardiac stenting Chronic and ongoing nicotine use Hypertension Hyperlipidemia Obstructive sleep apnea without CPAP use History of right peripheral arterial disease with prior femtib bypass GI prophylaxis DVT prophylaxis, continued on IV heparin Full code Plan: Patient is now status post balloon tamponade of the left external iliac bleed Monitor hemoglobin q6h. Status post 1 unit PRBC Patient is currently n.p.o. and recommend to monitor blood sugars closely. Will resume diet once cleared by cardiology xarelto held, plavix held today. Resume losartan, monitor blood pressure Status post 1L fluid bolus and continue normal saline at 75 mls/hr Discussed importance of smoking cessation with patient he says he smokes about 3 cigarettes/day refusing nicotine patch at this time. Will follow-up with repeat labs and monitor kidney functions and electrolytes. Creatinine 1.0 today Monitor hemoglobin closely and any bleeding noted to the site. The impression and plan of care has been dictated by Kourtney Meneses, Nurse Practitioner as directed. Dr. Pravin MD I have performed a history and physical examination and medical decision making of this patient, discussed the same with the dictator, and agree with the dictators assessment and plan as written, documented as a scribe. Based on total visit time, I have performed more than 50% of this visit. Objective - Vital Signs Vital signs: Vital Signs Temp 97.7 F 03/08/24 14:13 Pulse 84 03/08/24 12:00 Resp 18 03/08/24 14:13 BP 113/74 03/08/24 14:13 Pulse Ox 97 03/08/24 14:13 FiO2 Intake & Output 03/07/24 03/08/24 03/08/24 18:59 06:59 18:59 Intake Total 1970 1000 810 Output Total 1400 500 Balance 570 500 810 Intake: IV 970 500 .9 @ 75 450 Invasive Line 1 20 Intake, IV Titration 1000 Amount Sodium Chloride 0.9% 1, 1000 000 ml @ 999 mls/hr IV . Q1H1M ONE Rx#:[id number] Oral 1000 Blood Product 310 Rc As-1 Unit 310 [id number] Output: Urine 1400 500 Other: Voiding Method Urinal Urinal Urinal - Labs CBC & Chem 7: 03/08/24 13:33 03/08/24 06:46 Labs: Abnormal Lab Results - Last 24 Hours (Table) 03/07/24 03/08/24 03/08/24 Range/Units 21:06 06:11 06:46 WBC (3.8-10.6) k/uL RBC 2.67 L (4.30-5.90) m/uL Hgb 7.1 L D (13.0-17.5) gm/dL Hct 23.4 L (39.0-53.0) % MCHC 30.2 L (31.0-37.0) g/dL RDW 19.0 H (11.5-15.5) % Neutrophils # 8.3 H (1.3-7.7) k/uL Lymphocytes # 0.7 L (1.0-4.8) k/uL Sodium (137-145) mmol/L Chloride (98-107) mmol/L Carbon Dioxide (22-30) mmol/L Creatinine (0.66-1.25) mg/dL Glucose (74-99) mg/dL POC Glucose (mg/dL) 163 H 188 H (70-110) mg/dL Calcium (8.4-10.2) mg/dL Crossmatch 03/08/24 03/08/24 03/08/24 Range/Units 06:46 08:19 13:33 WBC 13.0 H (3.8-10.6) k/uL RBC 2.69 L (4.30-5.90) m/uL Hgb 7.4 L (13.0-17.5) gm/dL Hct 23.3 L (39.0-53.0) % MCHC (31.0-37.0) g/dL RDW 18.5 H (11.5-15.5) % Neutrophils # 12.1 H (1.3-7.7) k/uL Lymphocytes # 0.5 L (1.0-4.8) k/uL Sodium 133 L (137-145) mmol/L Chloride 109 H (98-107) mmol/L Carbon Dioxide 13 L (22-30) mmol/L Creatinine 1.41 H (0.66-1.25) mg/dL Glucose 235 H (74-99) mg/dL POC Glucose (mg/dL) (70-110) mg/dL Calcium 8.0 L (8.4-10.2) mg/dL Crossmatch See Detail Assessment and Plan Time with Patient: Less than 30
[2024-03-08 16:40] LABS: Glucose,Whole Blood 141 mg/dL (70-110)
[2024-03-08 17:48] LABS: Anisocytosis Slight; Basophils % (A) 0 %; Eosinophils % (A) 0 %; HCT 23.7 % (39.0-53.0); HGB 7.4 gm/dL (13.0-17.5); Hypochromasia Marked; Lymphocytes # (A) 0.6 k/uL (1.0-4.8); Lymphocytes % (A) 4 %; MCH 27.8 pg (25.0-35.0); MCHC 31.3 g/dL (31.0-37.0); MCV 88.9 fL (80.0-100.0); Mean Platelet Volume 9.3; Monocytes # (A) 0.5 k/uL (0-1.0); Monocytes % (A) 3 %; Neutrophils # (A) 13.7 k/uL (1.3-7.7); Neutrophils % (A) 92 %; Platelet Count 189 k/uL (150-450); RBC 2.67 m/uL (4.30-5.90); RDW 18.3 % (11.5-15.5); WBC 14.9 k/uL (3.8-10.6)
[2024-03-08 17:58] LABS: African American GFR (CKD) 49 (>60 ml/min/1.73 sqM); Anion Gap 8 mmol/L; Blood Urea Nitrogen 17 mg/dL (9-20); Calcium 8.2 mg/dL (8.4-10.2); Carbon Dioxide 18 mmol/L (22-30); Chloride 108 mmol/L (98-107); Glucose 122 mg/dL (74-99); Non-African American GFR(CKD) 42 (>60 ml/min/1.73 sqM); Sodium 134 mmol/L (137-145)
[2024-03-08 20:24] LABS: Glucose,Whole Blood 163 mg/dL (70-110)
[2024-03-09 06:21] LABS: Glucose,Whole Blood 117 mg/dL (70-110)
[2024-03-09 07:33] LABS: Anisocytosis Slight; Basophils % (A) 0 %; Eosinophils % (A) 0 %; Hypochromasia Marked; Lymphocytes # (A) 1.2 k/uL (1.0-4.8); Lymphocytes % (A) 9 %; MCH 27.4 pg (25.0-35.0); MCHC 31.2 g/dL (31.0-37.0); MCV 87.9 fL (80.0-100.0); Monocytes # (A) 0.8 k/uL (0-1.0); Monocytes % (A) 6 %; Neutrophils % (A) 83 %; Platelet Count 177 k/uL (150-450); RBC 2.17 m/uL (4.30-5.90); RDW 18.5 % (11.5-15.5); WBC 13.2 k/uL (3.8-10.6)
[2024-03-09 07:49] LABS: African American GFR (CKD) 37 (>60 ml/min/1.73 sqM); Anion Gap 7 mmol/L; Blood Urea Nitrogen 19 mg/dL (9-20); Calcium 8.4 mg/dL (8.4-10.2); Carbon Dioxide 19 mmol/L (22-30); Chloride 108 mmol/L (98-107); Glucose 102 mg/dL (74-99); Magnesium 2.1 mg/dL (1.6-2.3); Non-African American GFR(CKD) 32 (>60 ml/min/1.73 sqM); Potassium 4.7 mmol/L (3.5-5.1); Sodium 134 mmol/L (137-145)
[2024-03-09 07:52] LABS: HCT 19.1 % (39.0-53.0)
[2024-03-09 11:54] LABS: Glucose,Whole Blood 143 mg/dL (70-110)
--- NOTE | 2024-03-09 13:42 | P.PN ---
Subjective Progress Note Date: 03/09/24 SUBJECTIVE: Patient with chronic threatened limb ischemia on left side underwent prior SFA stenting. He had underwent angiogram with Dr. Shaikh and had a EKOS catheter placement. 03/09/2024 Yesterday patient was noticed to be hypotensive and had acute anemia. Because of concerns of left retroperitoneal hematoma we obtained a CTA which showed active oozing. For this patient had balloon tamponade of external iliac with Dr. Shaikh yesterday. Post procedure patient had 4 hours of FemoStop placem ent. This morning he is more hemodynamically stable. He did have drop in his hemoglobin noticed today on repeat CBC and is therefore getting 1 unit of blood transfusion. He denies any right or left groin pain. He denies any abdominal pain at this time. PHYSICAL EXAMINATION Vital signs reviewed. Head: Normocephalic. S1-S2 is audible, no significant murmurs appreciated, abdominal soft and nond istended, lungs are clear to auscultate, no swelling in bilateral lower extremity, legs are warm to touch, he does have poor peripheral pulses because of PAD but it has not changed when compared to examination yesterday. ASSESSMENT Left-sided retroperitoneal hematoma due to left external iliac bleeding status post balloon tamponade Severe peripheral arterial disease Status post proximal left SFA LYUBOV RUBEN Essential hypertension, dyslipidemia PLAN Because of worsening RUBEN, monitor renal function and urine output. Hold losartan 100 mg. Start amlodipine 5 mg from tomorrow for elevated blood pre ssure Continue aspirin and Plavix, statin. Monitor hemoglobin. Repeat CBC 4 hours after the blood transfusion. If still Hb less than 7, transfuse once more. Jai Og MD, FACC, RPVI Thank you for allowing [facility] to participate in this patient's care. Please contact us in case of any followup questions. Objective - Vital Signs Vital signs: Vital Signs Temp 98.2 F 03/09/24 10:45 Pulse 61 03/09/24 12:42 Resp 16 03/09/24 12:42 BP 119/66 03/09/24 12:42 Pulse Ox 97 03/09/24 12:42 FiO2 Intake & Output 03/08/24 03/09/24 03/09/24 18:59 06:59 18:59 Intake Total 2910 0 Output Total 400 Balance 2910 -400 0 Weight 69.5 kg Intake: IV 500 Intake, IV Titration 2100 Amount Sodium Chloride 0.9% 1, 600 000 ml @ 75 mls/hr IV . [id number] IVETTE Rx#:[id number] Sodium Chloride 0.9% 1, 1000 000 ml @ 999 mls/hr IV . Q1H1M ONE Rx#:[id number] Sodium Chloride 0.9% 500 500 ml 500 ml @ 999 mls/hr IV .Q31M ONE Rx#:[id number] Blood Product 310 0 Unit 0 Rc As-1 Unit 310 [id number] Output: Urine 400 Other: Voiding Method Urinal Urinal Urinal # Voids 1 - Labs CBC & Chem 7: 03/09/24 07:03 03/09/24 07:03 Labs: Abnormal Lab Results - Last 24 Hours (Table) 03/08/24 03/08/24 03/08/24 Range/Units 08:19 13:33 16:38 WBC 13.0 H (3.8-10.6) k/uL RBC 2.69 L (4.30-5.90) m/uL Hgb 7.4 L (13.0-17.5) gm/dL Hct 23.3 L (39.0-53.0) % RDW 18.5 H (11.5-15.5) % Neutrophils # 12.1 H (1.3-7.7) k/uL Lymphocytes # 0.5 L (1.0-4.8) k/uL Sodium (137-145) mmol/L Chloride (98-107) mmol/L Carbon Dioxide (22-30) mmol/L Creatinine (0.66-1.25) mg/dL Glucose (74-99) mg/dL POC Glucose (mg/dL) 141 H (70-110) mg/dL Calcium (8.4-10.2) mg/dL Crossmatch See Detail 03/08/24 03/08/24 03/08/24 Range/Units 17:14 17:14 20:23 WBC 14.9 H (3.8-10.6) k/uL RBC 2.67 L (4.30-5.90) m/uL Hgb 7.4 L (13.0-17.5) gm/dL Hct 23.7 L (39.0-53.0) % RDW 18.3 H (11.5-15.5) % Neutrophils # 13.7 H (1.3-7.7) k/uL Lymphocytes # 0.6 L (1.0-4.8) k/uL Sodium 134 L (137-145) mmol/L Chloride 108 H (98-107) mmol/L Carbon Dioxide 18 L (22-30) mmol/L Creatinine 1.71 H (0.66-1.25) mg/dL Glucose 122 H (74-99) mg/dL POC Glucose (mg/dL) 163 H (70-110) mg/dL Calcium 8.2 L (8.4-10.2) mg/dL Crossmatch 03/09/24 03/09/24 03/09/24 Range/Units 06:20 07:03 07:03 WBC 13.2 H (3.8-10.6) k/uL RBC 2.17 L (4.30-5.90) m/uL Hgb 6.0 L* (13.0-17.5) gm/dL Hct 19.1 L* (39.0-53.0) % RDW 18.5 H (11.5-15.5) % Neutrophils # 11.0 H (1.3-7.7) k/uL Lymphocytes # (1.0-4.8) k/uL Sodium 134 L (137-145) mmol/L Chloride 108 H (98-107) mmol/L Carbon Dioxide 19 L (22-30) mmol/L Creatinine 2.13 H (0.66-1.25) mg/dL Glucose 102 H (74-99) mg/dL POC Glucose (mg/dL) 117 H (70-110) mg/dL Calcium (8.4-10.2) mg/dL Crossmatch 03/09/24 Range/Units 11:52 WBC (3.8-10.6) k/uL RBC (4.30-5.90) m/uL Hgb (13.0-17.5) gm/dL Hct (39.0-53.0) % RDW (11.5-15.5) % Neutrophils # (1.3-7.7) k/uL Lymphocytes # (1.0-4.8) k/uL Sodium (137-145) mmol/L Chloride (98-107) mmol/L Carbon Dioxide (22-30) mmol/L Creatinine (0.66-1.25) mg/dL Glucose (74-99) mg/dL POC Glucose (mg/dL) 143 H (70-110) mg/dL Calcium (8.4-10.2) mg/dL Crossmatch
[2024-03-09] MEDS: CLOPIDOGREL 75 MG TAB PO SCH (14:03)
[2024-03-09 16:36] LABS: Glucose,Whole Blood 126 mg/dL (70-110)
[2024-03-09 18:12] LABS: Anisocytosis Slight; Basophils % (A) 0 %; Eosinophils # (A) 0.1 k/uL (0-0.7); Eosinophils % (A) 1 %; HCT 21.9 % (39.0-53.0); HGB 7.2 gm/dL (13.0-17.5); Hypochromasia Moderate; Lymphocytes # (A) 1.1 k/uL (1.0-4.8); Lymphocytes % (A) 9 %; MCH 28.7 pg (25.0-35.0); MCHC 32.9 g/dL (31.0-37.0); MCV 87.1 fL (80.0-100.0); Mean Platelet Volume 8.4; Monocytes # (A) 0.5 k/uL (0-1.0); Monocytes % (A) 4 %; Neutrophils # (A) 10.3 k/uL (1.3-7.7); Neutrophils % (A) 84 %; Platelet Count 178 k/uL (150-450); RBC 2.51 m/uL (4.30-5.90); RDW 17.5 % (11.5-15.5); WBC 12.2 k/uL (3.8-10.6)
[2024-03-09 20:04] LABS: Glucose,Whole Blood 112 mg/dL (70-110)
--- NOTE | 2024-03-10 03:12 | P.PN ---
Subjective Progress Note Date: 03/09/24 This is a pleasant 63-year-old male with medical history significant for peripheral arterial disease, chronic nicotine use, atrial fibrillation, diabetes mellitus, hypertension, hyperlipidemia, obstructive sleep apnea. Coronary artery disease with prior cardiac stenting. Patient comes into the hospital with complaints of severe left leg pain. He was in the hospital in January 2024 and underwent stenting of the left SFA with Dr. Shaikh. Since the procedure patient was continued on Plavix and Xarelto which he reports compliance with these medications. He did report some degree of numbness to the left leg but has also stated that he does have peripheral neuropathy. Over the last week he has experienced severe pain to his left leg starting in the thigh and now down into the foot ankle and states that in the last couple days it has been cramping in the calf when he has been attempting to ambulate. He came in for further evaluation. CT angiography of the left lower extremity reveals c omplete occlusion of the stented superficial femoral artery, complete occlusion of the upper popliteal artery with reconstruction of flow in the distal popliteal artery, dominant runoff to the ankle by the anterior and posterior tibial arteries. Majority of the peroneal artery appears patent but flow has not come from the level of the ankle. There is severe stenosis in the proximal left internal iliac artery with occlusion distally. There is mild aneurysmal dilation of the visualized distal abdominal aorta measuring 3 cm. He was admitted to the hospital under internal medicine with a consult placed to cardiology and vascular services. He is started on IV heparin and Xarelto is currently placed on hold. Did discuss with patient to bedside the importance of smoking cessation and he is agreeing. 03/07/2024 Patient is seen in follow-up today continues in the ICU with cardiology and vas cular surgery following maintained on IV heparin. Patient undergoing EKOS and plans on reevaluation with Dr. Shaikh in the [facility] today. Will evaluate for further intervention required. Patient to continue telemetry monitoring and is currently stable. Patient sodium mildly low at 134 and will follow-up on repeat labs as creatinine is also 1.05. Blood sugars controlled and hemoglobin is 10.7, platelets 229. Patient is afebrile and white count normal with no reports of chest pain or palpitations. Patient currently n.p.o. for the procedure. Will await official report. 03/08/2024 Patient is evaluated today in follow up on the cardiac stepdown unit. He is status post stenting of the left SFA occluded graft. Patient will continue on dual antiplatelet therapy with Plavix and Xarelto for at least the next 6 months. Throughout the evening patient was up ambulating to the restroom and felt a pop in his left groin and now is on bedrest with severe pain to the left groin there is a slight bulge noted additionally patient was diaphoretic clammy and had a drop in blood pressure down to 87/59. He was given fluid bolus stat blood count reveals a hemoglobin of 7.1 which is a 3 g drop since yesterday he was given 1 unit of packed red blood cells and had stat CT imaging completed wh ich reveals acute extravasation of the left external iliac artery 2.8 cm above the inferior epigastric takeoff with blood products extending out to the retroperitoneum along the psoas muscle and into the left inguinal canal and left scrotum. Peripheral interventionalists notified and patient underwent balloon tamponade of the left external iliac artery bleed. Blood pressure up to 144/82. 03/09/2024 Patient is seen in follow-up today with cardiology following and patient is status post SFA stenting on the left and also angiogram with EKOS. Patient developed left retroperitoneal hematoma and CTA showing active oozing which required surgical intervention with balloon tamponade with Dr. Shaikh. Patient did have a noted drop in hemoglobin today of 6.9 and is receiving 1 unit of PRBC. Patient is currently in bed and has not gotten up as he reports nursing staff will not allow him as they were concerned of recurrent bleeding. Patient did require FemStop of the groin and there is no active bleeding noted currently. Repeat H&H ordered for this evening. Patient is afebrile with no reports of chest pain or shortness of breath. review of systems: Constitutional: reports of fatigue, no fever, or chills Cardiovascular: No reports of chest pain or palpitations Respiratory: No reports of shortness of breath or cough GI: No reports of nausea, vomiting, or diarrhea : No reports of dysuria or retention Neurovascular: No reports of weakness or numbness All medications have been reviewed PHYSICAL EXAMINATION: GENERAL: The patient is asleep although easily arousable, alert and oriented x3, not in any acute distress. Well developed, well nourished. Elderly appearing HEENT: Pupils are round and equally reacting to light. EOMI. No scleral icterus. No conjunctival pallor. Normocephalic, atraumatic. No pharyngeal erythema. No thyromegaly. CARDIOVASCULAR: S1 and S2 present. No murmurs, rubs, or gallops. PULMONARY: Chest is clear to auscultation, no wheezing or crackles. ABDOMEN: Soft, nontender, nondistended, normoactive bowel sounds. No palpable organomegaly. MUSCULOSKELETAL: No joint swelling or deformity. EXTREMITIES: No cyanosis, clubbing, or pedal edema. Hematoma to the left groin, no obvious bruising noted. NEUROLOGICAL: Gross neurological examination did not reveal any focal deficits. Diffusely weak SKIN: No rashes. Assessment: Left superficial femoral artery stent occlusion status post stenting of the left SFA Acute external iliac/retroperitoneal bleed requiring emergent balloon tamponade. Acute blood loss anemia due to above hgb down to 6.9 status post 1 unit PRBC. Another unit of PRBC ordered Left upper popliteal occlusion with reconstruction of the distal popliteal artery Diabetes mellitus type 2 Mild acute kidney injury History of atrial fibrillation paroxysmal anticoag with Xarelto Coronary artery disease with prior cardiac stenting Chronic and ongoing nicotine use Hypertension Hyperlipidemia Obstructive sleep apnea without CPAP use History of right peripheral arterial disease with prior femtib bypass GI prophylaxis DVT prophylaxis, continued on IV heparin Full code Plan: Patient is now status post balloon tamponade of the left external iliac bleed Monitor hemoglobin q6h. Status post 1 unit PRBC. Hemoglobin is 6.9 today and will be given another unit of PRBC. Repeat H&H ordered for this evening transfuse if 7 or less. Continue monitoring Accu-Cheks before meals and at bedtime and will continue with current regimen. Adjust insulins accordingly xarelto held, plavix and aspirin held today while awaiting to discuss further with cardiology.. Continue losartan, monitor blood pressure Status post 1L fluid bolus and continue normal saline at 75 mls/hr. Kidney functions worsening with RUBEN and will consult nephrology and appreciate input and recommendations. Repeat labs ordered for a.m. Discussed importance of smoking cessation with patient he says he smokes about 3 cigarettes/day refusing nicotine patch at this time. Will follow-up with repeat labs and monitor kidney functions and electrolytes. Monitor hemoglobin closely and any bleeding noted to the site. The impression and plan of care has been dictated by Breanne Bo, Nurse Practitioner as directed. Dr. Pravin MD I have performed a history and physical examination and medical decision making of this patient, discussed the same with the dictator, and agree with the dictators assessment and plan as written, documented as a scribe. Based on total visit time, I have performed more than 50% of this visit. Objective - Vital Signs Vital signs: Vital Signs Temp 98.2 F 03/09/24 03:14 Pulse 90 03/09/24 03:14 Resp 18 03/09/24 03:14 BP 130/71 03/09/24 03:14 Pulse Ox 98 03/09/24 03:14 FiO2 Intake & Output 03/08/24 03/08/24 03/09/24 06:59 18:59 06:59 Intake Total 1000 2910 Output Total 500 100 Balance 500 2910 -100 Intake: IV 500 Intake, IV Titration 1000 2100 Amount Sodium Chloride 0.9% 1, 600 000 ml @ 75 mls/hr IV . [id number] IVETTE Rx#:[id number] Sodium Chloride 0.9% 1, 1000 000 ml @ 999 mls/hr IV . Q1H1M ONE Rx#:[id number] Sodium Chloride 0.9% 1, 1000 000 ml @ 999 mls/hr IV . Q1H1M ONE Rx#:[id number] Sodium Chloride 0.9% 500 500 ml 500 ml @ 999 mls/hr IV .Q31M ONE Rx#:[id number] Blood Product 310 Rc As-1 Unit 310 [id number] Output: Urine 500 100 Other: Voiding Method Urinal Urinal Urinal # Voids 1 - Labs CBC & Chem 7: 03/09/24 17:46 03/09/24 07:03 Labs: Abnormal Lab Results - Last 24 Hours (Table) 03/08/24 03/08/24 03/08/24 Range/Units 06:11 06:46 06:46 WBC (3.8-10.6) k/uL RBC 2.67 L (4.30-5.90) m/uL Hgb 7.1 L D (13.0-17.5) gm/dL Hct 23.4 L (39.0-53.0) % MCHC 30.2 L (31.0-37.0) g/dL RDW 19.0 H (11.5-15.5) % Neutrophils # 8.3 H (1.3-7.7) k/uL Lymphocytes # 0.7 L (1.0-4.8) k/uL Sodium 133 L (137-145) mmol/L Chloride 109 H (98-107) mmol/L Carbon Dioxide 13 L (22-30) mmol/L Creatinine 1.41 H (0.66-1.25) mg/dL Glucose 235 H (74-99) mg/dL POC Glucose (mg/dL) 188 H (70-110) mg/dL Calcium 8.0 L (8.4-10.2) mg/dL Crossmatch 03/08/24 03/08/24 03/08/24 Range/Units 08:19 13:33 16:38 WBC 13.0 H (3.8-10.6) k/uL RBC 2.69 L (4.30-5.90) m/uL Hgb 7.4 L (13.0-17.5) gm/dL Hct 23.3 L (39.0-53.0) % MCHC (31.0-37.0) g/dL RDW 18.5 H (11.5-15.5) % Neutrophils # 12.1 H (1.3-7.7) k/uL Lymphocytes # 0.5 L (1.0-4.8) k/uL Sodium (137-145) mmol/L Chloride (98-107) mmol/L Carbon Dioxide (22-30) mmol/L Creatinine (0.66-1.25) mg/dL Glucose (74-99) mg/dL POC Glucose (mg/dL) 141 H (70-110) mg/dL Calcium (8.4-10.2) mg/dL Crossmatch See Detail 03/08/24 03/08/24 03/08/24 Range/Units 17:14 17:14 20:23 WBC 14.9 H (3.8-10.6) k/uL RBC 2.67 L (4.30-5.90) m/uL Hgb 7.4 L (13.0-17.5) gm/dL Hct 23.7 L (39.0-53.0) % MCHC (31.0-37.0) g/dL RDW 18.3 H (11.5-15.5) % Neutrophils # 13.7 H (1.3-7.7) k/uL Lymphocytes # 0.6 L (1.0-4.8) k/uL Sodium 134 L (137-145) mmol/L Chloride 108 H (98-107) mmol/L Carbon Dioxide 18 L (22-30) mmol/L Creatinine 1.71 H (0.66-1.25) mg/dL Glucose 122 H (74-99) mg/dL POC Glucose (mg/dL) 163 H (70-110) mg/dL Calcium 8.2 L (8.4-10.2) mg/dL Crossmatch
[2024-03-10 05:55] LABS: Anisocytosis Slight; Basophils % (A) 0 %; Eosinophils # (A) 0.1 k/uL (0-0.7); Eosinophils % (A) 1 %; HCT 20.7 % (39.0-53.0); Hypochromasia Moderate; Lymphocytes % (A) 10 %; MCH 28.6 pg (25.0-35.0); MCHC 33.1 g/dL (31.0-37.0); MCV 86.3 fL (80.0-100.0); Mean Platelet Volume 8.8; Monocytes # (A) 0.6 k/uL (0-1.0); Monocytes % (A) 6 %; Neutrophils # (A) 8.5 k/uL (1.3-7.7); Neutrophils % (A) 82 %; Platelet Count 167 k/uL (150-450); Poikilocytosis Slight; RBC 2.39 m/uL (4.30-5.90); RDW 17.8 % (11.5-15.5); WBC 10.5 k/uL (3.8-10.6)
[2024-03-10 06:07] LABS: Glucose,Whole Blood 113 mg/dL (70-110)
[2024-03-10 06:09] LABS: HGB 6.8 gm/dL (13.0-17.5)
[2024-03-10 06:47] LABS: ALT 26 U/L (4-49); AST 43 U/L (17-59); African American GFR (CKD) 63 (>60 ml/min/1.73 sqM); Albumin 2.9 g/dL (3.5-5.0); Alkaline Phosphatase 64 U/L (38-126); Anion Gap 2 mmol/L; Blood Urea Nitrogen 15 mg/dL (9-20); Calcium 8.4 mg/dL (8.4-10.2); Carbon Dioxide 22 mmol/L (22-30); Chloride 109 mmol/L (98-107); Glucose 97 mg/dL (74-99); Magnesium 1.9 mg/dL (1.6-2.3); Non-African American GFR(CKD) 54 (>60 ml/min/1.73 sqM); Potassium 4.4 mmol/L (3.5-5.1); Sodium 133 mmol/L (137-145); Total Bilirubin 0.5 mg/dL (0.2-1.3); Total Protein 5.3 g/dL (6.3-8.2)
[2024-03-10] MEDS: amLODIPine 5 MG TAB PO SCH (08:40)
[2024-03-10 11:14] LABS: Glucose,Whole Blood 121 mg/dL (70-110)
[2024-03-10] MEDS: DOCUSATE 100 MG CAP PO SCH (12:06)
--- NOTE | 2024-03-10 13:56 | P.GSCN ---
History of Present Illness Consult date: 03/10/24 Reason for Consult: Continued bleeding into peritoneum, scrotum, abdomen Requesting physician: Breanne Bo History of present illness: 63-year-old male with lower extremity peripheral arterial disease who was seen pennie mosher during this hospitalization for left lower extremity common femoral occlusion. Patient is followed by cardiology and has undergone stents in the left lower extremity. During this hospitalization it was noted that there was occlusion and he underwent tPA with EKOS, on recheck he also had another stent placed. He had improved left lower extremity pain. Apparently over the weekend he started having bleeding from the left groin where access site was. He had a CT noncontrast chest abdomen pelvis as well as a CT angio thoracic abdomen pelvis aorta done on 03/08/2024. With findings of active extra ovation of the left external iliac artery 2.8 cm above the inferior epigastric takeoff with blood products extending out through the retroperitoneum along the psoas muscle and into the left inguinal canal and left scrotum. Infrarenal abdominal aortic aneurysm 30 mm. Moderate to severe arthrosclerotic disease of the aorta and atrial vasculature. Cardiology was notified and took the patient back to cardiovascular lab and patient underwent a left lower extremity angiogram with balloon tamponade of the left iliac artery. Yesterday he had a drop in his hemoglobin to 6.0 he was transfused 2 units of blood with a repeat hemoglobin of 7.2. This morning he had a another set slight drop in his hemoglobin to 6.8. Patient is hemodynamically stable, blood pressure has been stable, heart rate and oxygen level. He states that he has some tenderness in the left groin no abdominal pain. No nausea or vomiting. Patient has not had a bowel movement since admission. Review of Systems A 14 point review systems was completed all pertinent positives and negatives as stated in the HPI. Past Medical History Past Medical History: Atrial Fibrillation, Diabetes Mellitus, Deep Vein Thrombosis (DVT), Hyperlipidemia, Hypertension, Prostate Disorder, Sleep Apnea/CPAP/BIPAP, Vascular Disorder Additional Past Medical History / Comment(s): Hx "mini heart attack/scarring long time ago". Cardiomyopathy. PAD. Varicose veins. Enlarged prostate. No CPAP use. History of Any Multi-Drug Resistant Organisms: MRSA Year Discovered:: 07/05/21 MDRO Source:: Left Ankle Past Surgical History: Heart Catheterization With Stent, Joint Replacement Additional Past Surgical History / Comment(s): Stent to right leg, vein graft right leg, right femoral bypass, stents to left leg, right hip replacement. Past Anesthesia/Blood Transfusion Reactions: No Reported Reaction Date of Last Stent Placement:: Unknown Past Psychological History: Anxiety Smoking Status: Current every day smoker Past Alcohol Use History: Occasional Additional Past Alcohol Use History / Comment(s): Has been smoking for 30 yrs, down to 1 ppd now. Drinks 2-3 beers daily. Aware no alcohol today. Past Drug Use History: None Reported - Past Family History Mother Family Medical History: Diabetes Mellitus, Hypertension Additional Family Medical History / Comment(s): Family history of varicose veins. Father Family Medical History: CVA/TIA, Myocardial Infarction ([place]) Medications and Allergies Home Medications Medication Instructions Recorded Confirmed Type Metoprolol Tartrate [Lopressor] 25 mg PO DAILY 09/09/22 03/06/24 History Tamsulosin [Flomax] 0.8 mg PO DAILY 09/09/22 03/06/24 History metFORMIN HCL [Glucophage] 500 mg PO BID 09/09/22 03/06/24 History Cholecalciferol (Vitamin D3) 125 mcg PO DAILY 09/10/23 03/06/24 History [Vitamin D3 (125 MCG = 5,000 IU)] FLUoxetine HCL [PROzac] 20 mg PO DAILY 09/10/23 03/06/24 History Pantoprazole [Protonix] 40 mg PO DAILY 02/16/24 03/06/24 History Acetaminophen Tab [Tylenol] 650 mg PO Q6HR PRN tab 02/19/24 03/06/24 Rx Atorvastatin [Lipitor] 40 mg PO HS #30 tab 02/19/24 03/06/24 Rx Clopidogrel [Plavix] 75 mg PO DAILY #30 tab 02/19/24 03/06/24 Rx Losartan [Cozaar] 100 mg PO DAILY #60 tab 02/19/24 03/06/24 Rx Rivaroxaban [Xarelto] 20 mg PO W/SUPPER #30 tab 02/19/24 03/06/24 Rx Allergies Allergy/AdvReac Type Severity Reaction Status Date / Time No Known Allergies Allergy Verified 03/05/24 22:11 Surgical - Exam Vital Signs Temp Pulse Resp BP Pulse Ox 98.1 F 113 H 22 126/72 99 03/05/24 22:06 03/05/24 22:06 03/05/24 22:06 03/05/24 22:06 03/05/24 22:06 General appearance: The patient is alert, oriented, appears in no acute distress. HET: Head is normocephalic and atraumatic. Pupils are equal and reactive. Neck: Supple. Heart: Regular. Lungs: Equal expansion, normal respiratory effort. Abdomen: Soft, nontender, mild distention. Extremities: Normal skin color and turgor. Left groin access site without any bleeding, hematoma or drainage noted. Neurological: No focal deficits. Strength and sensation are grossly intact. Results - Labs 03/10/24 05:37 03/10/24 05:37 Abnormal Lab Results - Last 24 Hours (Table) 03/08/24 03/09/24 03/09/24 Range/Units 08:19 11:52 16:34 WBC (3.8-10.6) k/uL RBC (4.30-5.90) m/uL Hgb (13.0-17.5) gm/dL Hct (39.0-53.0) % RDW (11.5-15.5) % Neutrophils # (1.3-7.7) k/uL Sodium (137-145) mmol/L Chloride (98-107) mmol/L Creatinine (0.66-1.25) mg/dL POC Glucose (mg/dL) 143 H 126 H (70-110) mg/dL Total Protein (6.3-8.2) g/dL Albumin (3.5-5.0) g/dL Crossmatch See Detail 03/09/24 03/09/24 03/10/24 Range/Units 17:46 20:03 05:37 WBC 12.2 H (3.8-10.6) k/uL RBC 2.51 L 2.39 L (4.30-5.90) m/uL Hgb 7.2 L 6.8 L* (13.0-17.5) gm/dL Hct 21.9 L 20.7 L (39.0-53.0) % RDW 17.5 H 17.8 H (11.5-15.5) % Neutrophils # 10.3 H 8.5 H (1.3-7.7) k/uL Sodium (137-145) mmol/L Chloride (98-107) mmol/L Creatinine (0.66-1.25) mg/dL POC Glucose (mg/dL) 112 H (70-110) mg/dL Total Protein (6.3-8.2) g/dL Albumin (3.5-5.0) g/dL Crossmatch 03/10/24 03/10/24 Range/Units 05:37 06:06 WBC (3.8-10.6) k/uL RBC (4.30-5.90) m/uL Hgb (13.0-17.5) gm/dL Hct (39.0-53.0) % RDW (11.5-15.5) % Neutrophils # (1.3-7.7) k/uL Sodium 133 L (137-145) mmol/L Chloride 109 H (98-107) mmol/L Creatinine 1.39 H (0.66-1.25) mg/dL POC Glucose (mg/dL) 113 H (70-110) mg/dL Total Protein 5.3 L (6.3-8.2) g/dL Albumin 2.9 L (3.5-5.0) g/dL Crossmatch Diabetes panel 03/10/24 Range/Units 05:37 Sodium 133 L (137-145) mmol/L Potassium 4.4 (3.5-5.1) mmol/L Chloride 109 H (98-107) mmol/L Carbon Dioxide 22 (22-30) mmol/L BUN 15 (9-20) mg/dL Creatinine 1.39 H (0.66-1.25) mg/dL Glucose 97 (74-99) mg/dL Calcium 8.4 (8.4-10.2) mg/dL AST 43 (17-59) U/L ALT 26 (4-49) U/L Alkaline Phosphatase 64 (38-126) U/L Total Protein 5.3 L (6.3-8.2) g/dL Albumin 2.9 L (3.5-5.0) g/dL Calcium panel 03/10/24 Range/Units 05:37 Calcium 8.4 (8.4-10.2) mg/dL Albumin 2.9 L (3.5-5.0) g/dL Pituitary panel 03/10/24 Range/Units 05:37 Sodium 133 L (137-145) mmol/L Potassium 4.4 (3.5-5.1) mmol/L Chloride 109 H (98-107) mmol/L Carbon Dioxide 22 (22-30) mmol/L BUN 15 (9-20) mg/dL Creatinine 1.39 H (0.66-1.25) mg/dL Glucose 97 (74-99) mg/dL Calcium 8.4 (8.4-10.2) mg/dL Adrenal panel 03/10/24 Range/Units 05:37 Sodium 133 L (137-145) mmol/L Potassium 4.4 (3.5-5.1) mmol/L Chloride 109 H (98-107) mmol/L Carbon Dioxide 22 (22-30) mmol/L BUN 15 (9-20) mg/dL Creatinine 1.39 H (0.66-1.25) mg/dL Glucose 97 (74-99) mg/dL Calcium 8.4 (8.4-10.2) mg/dL Total Bilirubin 0.5 (0.2-1.3) mg/dL AST 43 (17-59) U/L ALT 26 (4-49) U/L Alkaline Phosphatase 64 (38-126) U/L Total Protein 5.3 L (6.3-8.2) g/dL Albumin 2.9 L (3.5-5.0) g/dL Assessment and Plan Assessment: 1. Left external iliac artery bleed into retroperitoneum, psoas muscle and left inguinal canal/scrotum status post angiogram with balloon tamponade 2. Acute blood loss anemia 3. Left SFA stent occlusion, status post tPA with EKOS and stent placement with Dr. Shaikh 4. Left upper popliteal artery occlusion with reconstitution distally 5. History of right peripheral arterial disease status post fem-tib bypass with CryoVein 6. Diabetes mellitus 7. Current smoker 8. Atrial fibrillation Plan: Patient is seen and evaluated. He is hemodynamically stable. Patient had a 5 g drop in his hemoglobin from left external iliac artery bleed however is status post balloon tamponade. It is expected that he will have some residual anemia. Continue with fluid and blood resuscitation as needed. There is no indication for any vascular surgical intervention at this time. Continue with recommendations from band teacher. We will continue to follow along. Thank you for this consultation. The impression and plan of care has been dictated as directed. Dr. Nuno I performed a history and examination of this patient, discussed the same with the dictator. I agree with the dictator's note ,documented as a scribe. Any additional findings or plans will be noted.
--- NOTE | 2024-03-10 14:15 | P.PN ---
Subjective HISTORY OF PRESENT ILLNESS: Patient with chronic threatened limb ischemia on left side underwent prior SFA stenting. He had underwent angiogram with Dr. Shaikh and had a EKOS catheter placement. 03/09/2024 Yesterday patient was noticed to be hypotensive and had acute anemia. Because of concerns of left retroperitoneal hematoma we obtained a CTA which showed active oozing. For this patient had balloon tamponade of external iliac with Dr Khurram Shaikh yesterday. Post procedure patient had 4 hours of FemoStop placement. This morning he is more hemodynamically stable. He did have drop in his hemoglobin noticed today on repeat CBC and is therefore getting 1 unit of blood transfusion. He denies any right or left groin pain. He denies any abdominal pain at this time. 03/10/2024 Examined this morning at the bedside. Patient currently denies chest pain or pressure. She denies shortness of breath. Hemoglobin this morning 6.8. Martha ent is receiving 1 unit RBC. Creatinine today improved at 1.39. Blood pressures are elevated with a systolic ranging tween [id number]. PHYSICAL EXAM: VITAL SIGNS: Reviewed. GENERAL: Well-developed in no acute distress. NECK: Supple. No JVD or thyromegaly LUNGS: Respirations even and unlabored. Lungs essentially clear to auscultation bilaterally. HEART: Regular rate and rhythm. S1 and S2 heard. EXTREMITIES: Normal range of motion. No clubbing or cyanosis. Peripheral pulses intact. No lower extremity edema ASSESSMENT: Left-sided retroperitoneal hematoma due to left external iliac bleeding status post balloon tamponade Left SFA stent occlusion, status post tPA with EKOS and stent placement Severe peripheral arterial disease RUBEN Hypertension Hyperlipidemia Acute blood loss anemia Paroxysmal atrial fibrillation PLAN: Continue dual antiplatelet therapy with aspirin and Plavix Continue additional cardiac medications Continue to hold Xarelto Patient currently receiving RBC transfusion. Continue to monitor hemoglobin Continue to monitor kidney function. Creatinine is improved today. Restart losartan tomorrow at a decreased dose of 50 mg daily Continue to monitor blood pressure Further recommendations pending patient course Nurse practitioner note has been reviewed by physician. Signing provider agrees with the documented findings, assessment, and plan of care documented by ORNAMENTAL BRICK INSTALLER as a scribe. Objective - Vital Signs Vital signs: Vital Signs Temp 98.2 F 03/10/24 11:25 Pulse 79 03/10/24 11:25 Resp 18 03/10/24 11:25 BP 134/71 03/10/24 11:25 Pulse Ox 94 L 03/10/24 11:25 FiO2 Intake & Output 03/09/24 03/10/24 03/10/24 18:59 06:59 18:59 Intake Total 790 240 510 Output Total 300 1700 700 Balance 490 -1460 -190 Weight 86 kg Intake: Oral 480 240 200 Blood Product 310 310 Rc As-1 Unit 310 [id number] Rc As-1 Unit 310 [id number] Output: Urine 300 1700 700 Other: Voiding Method Urinal Urinal Urinal # Voids 1 # Bowel Movements 1 - Labs CBC & Chem 7: 03/10/24 05:37 03/10/24 05:37 Labs: Abnormal Lab Results - Last 24 Hours (Table) 03/08/24 03/09/24 03/09/24 Range/Units 08:19 16:34 17:46 WBC 12.2 H (3.8-10.6) k/uL RBC 2.51 L (4.30-5.90) m/uL Hgb 7.2 L (13.0-17.5) gm/dL Hct 21.9 L (39.0-53.0) % RDW 17.5 H (11.5-15.5) % Neutrophils # 10.3 H (1.3-7.7) k/uL Sodium (137-145) mmol/L Chloride (98-107) mmol/L Creatinine (0.66-1.25) mg/dL POC Glucose (mg/dL) 126 H (70-110) mg/dL Total Protein (6.3-8.2) g/dL Albumin (3.5-5.0) g/dL Crossmatch See Detail 03/09/24 03/10/24 03/10/24 Range/Units 20:03 05:37 05:37 WBC (3.8-10.6) k/uL RBC 2.39 L (4.30-5.90) m/uL Hgb 6.8 L* (13.0-17.5) gm/dL Hct 20.7 L (39.0-53.0) % RDW 17.8 H (11.5-15.5) % Neutrophils # 8.5 H (1.3-7.7) k/uL Sodium 133 L (137-145) mmol/L Chloride 109 H (98-107) mmol/L Creatinine 1.39 H (0.66-1.25) mg/dL POC Glucose (mg/dL) 112 H (70-110) mg/dL Total Protein 5.3 L (6.3-8.2) g/dL Albumin 2.9 L (3.5-5.0) g/dL Crossmatch 03/10/24 03/10/24 Range/Units 06:06 11:05 WBC (3.8-10.6) k/uL RBC (4.30-5.90) m/uL Hgb (13.0-17.5) gm/dL Hct (39.0-53.0) % RDW (11.5-15.5) % Neutrophils # (1.3-7.7) k/uL Sodium (137-145) mmol/L Chloride (98-107) mmol/L Creatinine (0.66-1.25) mg/dL POC Glucose (mg/dL) 113 H 121 H (70-110) mg/dL Total Protein (6.3-8.2) g/dL Albumin (3.5-5.0) g/dL Crossmatch
--- NOTE | 2024-03-10 15:24 | P.NPCON ---
History of Present Illness - Reason for Consult acute renal failure - History of Present Illness Reason for consultation: Acute kidney injury History of present illness: Patient is a 63-year-old male seen in renal consultation for acute kidney injury. Patient's baseline creatinine is near 1 and peaked at 2.13 this admission yesterday and is improved to 1.39 today. Patient came to the hospital on March 05, 2022 with left leg pain. Patient has history of peripheral arterial disease and workup revealed occlusion of the left SFA and required stent placement in the past. Patient states the pain was progressively getting worse and also felt numb at times. He underwent left lower extremity angiogram with runoff with tPA infusion March 06, 2024 and stent placement to the proximal left SFA on March 07, 2024. Subsequently patient developed retroperitoneal bleed and underwent angiogram with balloon tamponade of the left iliac artery on March 08, 2024. Hemoglobin today was 6.8 and he is receiving blood transfusion this morning. He did receive a unit of blood earlier this admission as well. Admits to good urine output. Denies gross hematuria or dysuria. He is currently on room air. Denies vomiting or diarrhea. Patient does have history of diabetes. Denies history of coronary artery disease. Vital signs are stable. General: No acute distress. HEENT: Head exam is unremarkable. LUNGS: No audible rhonchi or wheezes. HEART: Rate and Rhythm are regular. ABDOMEN: Nontender. EXTREMITITES: No edema. Past Medical History Past Medical History: Atrial Fibrillation, Diabetes Mellitus, Deep Vein Thrombosis (DVT), Hyperlipidemia, Hypertension, Prostate Disorder, Sleep Apnea/CPAP/BIPAP, Vascular Disorder Additional Past Medical History / Comment(s): Hx "mini heart attack/scarring long time ago". Cardiomyopathy. PAD. Varicose veins. Enlarged prostate. No CPAP use. History of Any Multi-Drug Resistant Organisms: MRSA Date of last positivie culture/infection: 07/05/21 MDRO Source:: Left Ankle Past Surgical History: Heart Catheterization With Stent, Joint Replacement Additional Past Surgical History / Comment(s): Stent to right leg, vein graft right leg, right femoral bypass, stents to left leg, right hip replacement. Past Anesthesia/Blood Transfusion Reactions: No Reported Reaction Date of Last Stent Placement:: Unknown Past Psychological History: Anxiety Smoking Status: Current every day smoker Past Alcohol Use History: Occasional Additional Past Alcohol Use History / Comment(s): Has been smoking for 30 yrs, down to 1 ppd now. Drinks 2-3 beers daily. Aware no alcohol today. Past Drug Use History: None Reported - Past Family History Mother Family Medical History: Diabetes Mellitus, Hypertension Additional Family Medical History / Comment(s): Family history of varicose veins. Father Family Medical History: CVA/TIA, Myocardial Infarction ([place]) Medications and Allergies Home Medications Medication Instructions Recorded Confirmed Type Metoprolol Tartrate [Lopressor] 25 mg PO DAILY 09/09/22 03/06/24 History Tamsulosin [Flomax] 0.8 mg PO DAILY 09/09/22 03/06/24 History metFORMIN HCL [Glucophage] 500 mg PO BID 09/09/22 03/06/24 History Cholecalciferol (Vitamin D3) 125 mcg PO DAILY 09/10/23 03/06/24 History [Vitamin D3 (125 MCG = 5,000 IU)] FLUoxetine HCL [PROzac] 20 mg PO DAILY 09/10/23 03/06/24 History Pantoprazole [Protonix] 40 mg PO DAILY 02/16/24 03/06/24 History Acetaminophen Tab [Tylenol] 650 mg PO Q6HR PRN tab 02/19/24 03/06/24 Rx Atorvastatin [Lipitor] 40 mg PO HS #30 tab 02/19/24 03/06/24 Rx Clopidogrel [Plavix] 75 mg PO DAILY #30 tab 02/19/24 03/06/24 Rx Losartan [Cozaar] 100 mg PO DAILY #60 tab 02/19/24 03/06/24 Rx Rivaroxaban [Xarelto] 20 mg PO W/SUPPER #30 tab 02/19/24 03/06/24 Rx Allergies Allergy/AdvReac Type Severity Reaction Status Date / Time No Known Allergies Allergy Verified 03/05/24 22:11 Physical Exam Vitals: Vital Signs Temp Pulse Pulse Resp BP BP BP 03/10/24 11:25 98.2 F 79 18 134/71 03/10/24 09:37 98.6 F 76 17 154/75 03/10/24 08:15 79 18 03/10/24 08:10 98.1 F 88 17 157/70 03/10/24 04:00 98.2 F 88 17 152/70 03/10/24 02:00 86 16 03/10/24 00:00 97.9 F 86 17 161/72 03/09/24 20:00 98.1 F 83 16 155/71 03/09/24 16:20 98.2 F 80 17 158/74 Pulse Ox 03/10/24 11:25 94 L 03/10/24 09:37 92 L 03/10/24 08:15 03/10/24 08:10 96 03/10/24 04:00 94 L 03/10/24 02:00 03/10/24 00:00 96 03/09/24 20:00 94 L 03/09/24 16:20 98 Intake and Output 03/10/24 03/10/24 03/10/24 06:59 14:59 22:59 Intake Total 510 Output Total 1075 700 Balance -1075 -190 Intake: Oral 200 Blood Product 310 Rc As-1 Unit 310 [id number] Output: Urine 1075 700 Other: Voiding Method Urinal Urinal # Voids 1 # Bowel Movements 1 Weight 86 kg Results - Lab Results Most recent lab results Calcium 8.4 mg/dL (8.4-10.2) 03/10/24 05:37 Magnesium 1.9 mg/dL (1.6-2.3) 03/10/24 05:37 03/10/24 05:37 03/10/24 05:37 Assessment and Plan Plan: Assessment: 1. Acute kidney injury secondary to ATN secondary to contrast associated acute kidney injury as well as acute blood loss anemia. Creatinine peaked at 2.1 this admission and is improved to 1.39 today. 2. Peripheral arterial disease status post angiogram with proximal left SFA stent placement this admission. 3. Retroperitoneal bleed status post balloon tamponade of left iliac artery March 08, 2024. Status post blood transfusions this admission. 4. Benign hypertension. 5. Diabetes mellitus. 6. Metabolic acidosis secondary to acute kidney injury. Improved. Plan: Currently receiving blood transfusion. Encouraged oral intake. Check UA. Check renal ultrasound. Avoid nephrotoxins. Continue to monitor renal function and urine output. Thank you for the consultation. I will continue to follow the patient with you during his hospital stay.
--- NOTE | 2024-03-10 16:07 | US ---
EXAMINATION TYPE: US kidneys/renal and bladder DATE OF EXAM: 03/10/2024 COMPARISON: CT: 03/08/24 CLINICAL INDICATION: Male, 63 years old with history of michelet; michelet TECHNIQUE: Grayscale imaging of the bilateral kidneys and urinary bladder: FINDINGS: EXAM MEASUREMENTS: Right Kidney: 11.1 x 5.7 x 6.1 cm Left Kidney: 9.9 x 6.0 x 6.1 cm Exam is limited due to excessive bowel gas Right Kidney: No hydronephrosis or masses seen Left Kidney: No hydronephrosis or masses seen Bladder: posterior wall appears irregular possible debris Bilateral Jets seen: yes There is no evidence for hydronephrosis at this point in time. No nephrolithiasis is seen. No marianela s are identified. The urinary bladder is adequately distended. IMPRESSION: No hydronephrosis is seen bilaterally. [facility], , 03/10/2024 4:05 PM
[2024-03-10 16:12] LABS: Glucose,Whole Blood 104 mg/dL (70-110)
[2024-03-10 19:56] LABS: Glucose,Whole Blood 119 mg/dL (70-110)
[2024-03-10 22:42] LABS: Appearance,Urine Clear (Clear); Bilirubin,Urine Negative (Negative); Blood,Urine Negative (Negative); Color,Urine Colorless; Glucose,Urine (UA) Negative (Negative); Ketones,Urine Negative (Negative); Leukocyte Esterase,Urine Negative (Negative); Nitrite,Urine Negative (Negative); PH, Urine 5.5 (5.0-8.0); Protein,Urine Negative (Negative); Specific Gravity,Urine 1.006 (1.001-1.035); Urobilinogen,Urine <2.0 mg/dL (<2.0)
--- NOTE | 2024-03-11 02:34 | P.PN ---
Subjective Progress Note Date: 03/10/24 This is a pleasant 63-year-old male with medical history significant for peripheral arterial disease, chronic nicotine use, atrial fibrillation, diabetes mellitus, hypertension, hyperlipidemia, obstructive sleep apnea. Coronary artery disease with prior cardiac stenting. Patient comes into the hospital with complaints of severe left leg pain. He was in the hospital in January 2024 and underwent stenting of the left SFA with Dr. Shaikh. Since the procedure patient was continued on Plavix and Xarelto which he reports compliance with these medications. He did report some degree of numbness to the left leg but has also stated that he does have peripheral neuropathy. Over the last week he has experienced severe pain to his left leg starting in the thigh and now down into the foot ankle and states that in the last couple days it has been cramping in the calf when he has been attempting to ambulate. He came in for further evaluation. CT angiography of the left lower extremity reveals c omplete occlusion of the stented superficial femoral artery, complete occlusion of the upper popliteal artery with reconstruction of flow in the distal popliteal artery, dominant runoff to the ankle by the anterior and posterior tibial arteries. Majority of the peroneal artery appears patent but flow has not come from the level of the ankle. There is severe stenosis in the proximal left internal iliac artery with occlusion distally. There is mild aneurysmal dilation of the visualized distal abdominal aorta measuring 3 cm. He was admitted to the hospital under internal medicine with a consult placed to cardiology and vascular services. He is started on IV heparin and Xarelto is currently placed on hold. Did discuss with patient to bedside the importance of smoking cessation and he is agreeing. 03/07/2024 Patient is seen in follow-up today continues in the ICU with cardiology and vas cular surgery following maintained on IV heparin. Patient undergoing EKOS and plans on reevaluation with Dr. Shaikh in the [facility] today. Will evaluate for further intervention required. Patient to continue telemetry monitoring and is currently stable. Patient sodium mildly low at 134 and will follow-up on repeat labs as creatinine is also 1.05. Blood sugars controlled and hemoglobin is 10.7, platelets 229. Patient is afebrile and white count normal with no reports of chest pain or palpitations. Patient currently n.p.o. for the procedure. Will await official report. 03/08/2024 Patient is evaluated today in follow up on the cardiac stepdown unit. He is status post stenting of the left SFA occluded graft. Patient will continue on dual antiplatelet therapy with Plavix and Xarelto for at least the next 6 months. Throughout the evening patient was up ambulating to the restroom and felt a pop in his left groin and now is on bedrest with severe pain to the left groin there is a slight bulge noted additionally patient was diaphoretic clammy and had a drop in blood pressure down to 87/59. He was given fluid bolus stat blood count reveals a hemoglobin of 7.1 which is a 3 g drop since yesterday he was given 1 unit of packed red blood cells and had stat CT imaging completed wh ich reveals acute extravasation of the left external iliac artery 2.8 cm above the inferior epigastric takeoff with blood products extending out to the retroperitoneum along the psoas muscle and into the left inguinal canal and left scrotum. Peripheral interventionalists notified and patient underwent balloon tamponade of the left external iliac artery bleed. Blood pressure up to 144/82. 03/09/2024 Patient is seen in follow-up today with cardiology following and patient is status post SFA stenting on the left and also angiogram with EKOS. Patient developed left retroperitoneal hematoma and CTA showing active oozing which required surgical intervention with balloon tamponade with Dr. Shaikh. Patient did have a noted drop in hemoglobin today of 6.9 and is receiving 1 unit of PRBC. Patient is currently in bed and has not gotten up as he reports nursing staff will not allow him as they were concerned of recurrent bleeding. Patient did require FemStop of the groin and there is no active bleeding noted currently. Repeat H&H ordered for this evening. Patient is afebrile with no reports of chest pain or shortness of breath. 03/10/2024 Patient is seen in follow-up this morning and patient's hemoglobin is found to be 6.9 today and will receive 1 unit of PRBC. Patient with concern there is continued bleeding we will have vascular reevaluate and appreciate input and recommendations as there was noted to be significantly losing and bleeding into the scrotum and groin. Patient is afebrile currently sitting up at the bedside and has not been up due to low hemoglobin and concerns for bleeding. Blood pressures are elevated and medications being adjusted per cardiology. review of systems: Constitutional: No reports of fatigue, no fever, or chills Cardiovascular: No reports of chest pain or palpitations Respiratory: No reports of shortness of breath or cough GI: No reports of nausea, vomiting, or diarrhea : No reports of dysuria or retention Neurovascular: No reports of weakness or numbness All medications have been reviewed PHYSICAL EXAMINATION: GENERAL: The patient is awake, alert and oriented x3, not in any acute distress. Well developed, well nourished. Elderly appearing HEENT: Pupils are round and equally reacting to light. EOMI. No scleral icterus. No conjunctival pallor. Normocephalic, atraumatic. No pharyngeal erythema. No thyromegaly. CARDIOVASCULAR: S1 and S2 present. No murmurs, rubs, or gallops. PULMONARY: Chest is clear to auscultation, no wheezing or crackles. ABDOMEN: Soft, nontender, nondistended, normoactive bowel sounds. No palpable organomegaly. MUSCULOSKELETAL: No joint swelling or deformity. EXTREMITIES: No cyanosis, clubbing, or pedal edema. Hematoma to the left groin, no obvious bruising noted. NEUROLOGICAL: Gross neurological examination did not reveal any focal deficits. Diffusely weak SKIN: No rashes. Assessment: Left superficial femoral artery stent occlusion status post stenting of the left SFA Acute external iliac/retroperitoneal bleed requiring emergent balloon tamponade. Acute blood loss anemia due to above hgb down to 6.9 status post 1 unit PRBC. Another unit of PRBC ordered Left upper popliteal occlusion with reconstruction of the distal popliteal artery Diabetes mellitus type 2 Mild acute kidney injury History of atrial fibrillation paroxysmal anticoag with Xarelto Coronary artery disease with prior cardiac stenting Chronic and ongoing nicotine use Hypertension Hyperlipidemia Obstructive sleep apnea without CPAP use History of right peripheral arterial disease with prior femtib bypass GI prophylaxis DVT prophylaxis, continued on aspirin and Plavix, Xarelto being held Full code Plan: Patient is now status post balloon tamponade of the left external iliac bleed Monitor hemoglobin q6h. Status post 1 unit PRBC. Hemoglobin is 6.9 again today and will be given another unit of PRBC. Repeat H&H ordered for this evening transfuse if 7 or less. Continue monitoring Accu-Cheks before meals and at bedtime and will continue with current regimen. Adjust insulins accordingly xarelto held, plavix and aspirin to be continued per cardiology.. Continue losartan, monitor blood pressure. Blood pressure medications is being adjusted by cardiology Status post 1L fluid bolus and continue normal saline at 75 mls/hr. Kidney functions improving and nephrology now following. Ultrasound of the kidneys ordered showing no hydronephrosis Discussed importance of smoking cessation with patient he says he smokes about 3 cigarettes/day refusing nicotine patch at this time. Will follow-up with repeat labs and monitor kidney functions and electrolytes. Monitor hemoglobin closely and any bleeding noted to the site. The impression and plan of care has been dictated by Breanne Bo, Nurse Practitioner as directed. Dr. Glenn MD I have performed a history and physical examination and medical decision making of this patient, discussed the same with the dictator, and agree with the dictators assessment and plan as written, documented as a scribe. Based on total visit time, I have performed more than 50% of this visit. Objective - Vital Signs Vital signs: Vital Signs Temp 98.5 F 03/11/24 00:00 Pulse 90 03/11/24 00:00 Resp 17 03/11/24 00:00 BP 176/84 03/11/24 00:00 Pulse Ox 94 L 03/11/24 00:00 FiO2 Intake & Output 03/10/24 03/10/24 03/11/24 06:59 18:59 06:59 Intake Total 240 990 747 Output Total 1700 1700 675 Balance -1460 -710 72 Weight 86 kg Intake: IV 10 Invasive Line 1 10 Oral 240 680 737 Blood Product 310 Rc As-1 Unit 310 [id number] Output: Urine 1700 1700 675 Other: Voiding Method Urinal Urinal Urinal # Voids 1 # Bowel Movements 1 - Labs CBC & Chem 7: 03/10/24 05:37 03/10/24 05:37 Labs: Abnormal Lab Results - Last 24 Hours (Table) 03/08/24 03/10/24 03/10/24 Range/Units 08:19 05:37 05:37 RBC 2.39 L (4.30-5.90) m/uL Hgb 6.8 L* (13.0-17.5) gm/dL Hct 20.7 L (39.0-53.0) % RDW 17.8 H (11.5-15.5) % Neutrophils # 8.5 H (1.3-7.7) k/uL Sodium 133 L (137-145) mmol/L Chloride 109 H (98-107) mmol/L Creatinine 1.39 H (0.66-1.25) mg/dL POC Glucose (mg/dL) (70-110) mg/dL Total Protein 5.3 L (6.3-8.2) g/dL Albumin 2.9 L (3.5-5.0) g/dL Crossmatch See Detail 03/10/24 03/10/24 03/10/24 Range/Units 06:06 11:05 19:54 RBC (4.30-5.90) m/uL Hgb (13.0-17.5) gm/dL Hct (39.0-53.0) % RDW (11.5-15.5) % Neutrophils # (1.3-7.7) k/uL Sodium (137-145) mmol/L Chloride (98-107) mmol/L Creatinine (0.66-1.25) mg/dL POC Glucose (mg/dL) 113 H 121 H 119 H (70-110) mg/dL Total Protein (6.3-8.2) g/dL Albumin (3.5-5.0) g/dL Crossmatch
[2024-03-11 06:02] LABS: Glucose,Whole Blood 116 mg/dL (70-110)
[2024-03-11] MEDS: LOSARTAN 50 MG TAB PO SCH (08:37)
[2024-03-11 10:22] LABS: Anisocytosis Slight; HCT 25.7 % (39.0-53.0); Hypochromasia Slight; MCH 28.1 pg (25.0-35.0); MCV 85.1 fL (80.0-100.0); Mean Platelet Volume 9.1; Platelet Count 198 k/uL (150-450); Poikilocytosis Slight; RBC 3.02 m/uL (4.30-5.90); RDW 18.1 % (11.5-15.5); WBC 8.1 k/uL (3.8-10.6)
[2024-03-11 10:24] LABS: African American GFR (CKD) 79 (>60 ml/min/1.73 sqM); Anion Gap 8 mmol/L; Blood Urea Nitrogen 9 mg/dL (9-20); Calcium 8.8 mg/dL (8.4-10.2); Carbon Dioxide 27 mmol/L (22-30); Chloride 102 mmol/L (98-107); Glucose 93 mg/dL (74-99); HGB 8.5 gm/dL (13.0-17.5); Magnesium 1.9 mg/dL (1.6-2.3); Non-African American GFR(CKD) 68 (>60 ml/min/1.73 sqM); Potassium 4.4 mmol/L (3.5-5.1); Sodium 137 mmol/L (137-145)
--- NOTE | 2024-03-11 11:29 | P.PN ---
Subjective Progress Note Date: 03/11/24 Principal diagnosis: Left external iliac artery bleed Patient is seen and examined today as a follow-up. He is status post left lower extremity angiogram with left external iliac artery tamponade. He states left lower extremity significantly improved from when he was admitted. He has some left groin and lower abdominal discomfort and bruising to the penis and scrotum. He is status post 3 units of blood transfusion this admission. Repeat hemoglobin today at 8.5. He denies any shortness of breath, chest pain, abdominal pain, weakness or dizziness. Vital signs are stable. Objective - Vital Signs Vital signs: Vital Signs Temp 98.3 F 03/11/24 04:00 Pulse 85 03/11/24 04:00 Resp 17 03/11/24 04:00 BP 164/86 03/11/24 04:00 Pulse Ox 96 03/11/24 04:00 FiO2 Intake & Output 03/10/24 03/11/24 03/11/24 18:59 06:59 18:59 Intake Total 990 1267 540 Output Total 1700 1350 300 Balance -710 -83 240 Weight 83 kg Intake: IV 30 Invasive Line 1 30 Oral 680 1237 540 Blood Product 310 Rc As-1 Unit 310 [id number] Output: Urine 1700 1350 300 Other: Voiding Method Urinal Urinal - Exam General appearance: The patient is alert, oriented, appears in no acute distress. HET: Head is normocephalic and atraumatic. Neck: Supple. Heart: Regular. Lungs: Equal expansion, normal respiratory effort. Abdomen: Soft, nontender, nondistended. Genitourinary: Penis and scrotum with ecchymosis. Extremities: Normal skin color and turgor. Bilateral femoral pulses, palpable left PT pulse. Left groin/lower abdomen with tenderness to palpation near access site. No active bleeding or hematoma noted. Neurological: Alert and oriented. - Labs CBC & Chem 7: 03/11/24 09:21 03/11/24 09:21 Labs: Abnormal Lab Results - Last 24 Hours (Table) 03/08/24 03/10/24 03/10/24 Range/Units 08:19 11:05 19:54 POC Glucose (mg/dL) 121 H 119 H (70-110) mg/dL Crossmatch See Detail 01/21/25 Range/Units 06:00 POC Glucose (mg/dL) 116 H (70-110) mg/dL Crossmatch Assessment and Plan Assessment: 1. Left external iliac artery bleed into retroperitoneum, psoas muscle and left inguinal canal/scrotum status post angiogram with balloon tamponade 2. Acute blood loss anemia 3. Left SFA stent occlusion, status post tPA with EKOS and stent placement with Dr. Shaikh 4. Left upper popliteal artery occlusion with reconstitution distally 5. History of right peripheral arterial disease status post fem-tib bypass with CryoVein 6. Diabetes mellitus 7. Current smoker 8. Atrial fibrillation Plan: Patient is seen and evaluated. He is hemodynamically stable. Patient had a 5 g drop in his hemoglobin from left external iliac artery bleed however is status post balloon tamponade. It is expected that he will have some residual anemia. Today hemoglobin is stable at 8.5. Continue with fluid and blood resuscitation as needed. There is no indication for any vascular surgical intervention at this time. Continue with recommendations from geriatric case manager and medical team for discharge timing. Patient is cleared from vascular surgery for discharge. We will sign off at this time. Thank you for this consultation. The impression and plan of care has been dictated as directed. Dr. Lemus I performed a history and examination of this patient, discussed the same with the dictator. I agree with the dictator's note ,documented as a scribe. Any additional findings or plans will be noted.
[2024-03-11 11:54] LABS: Glucose,Whole Blood 115 mg/dL (70-110)
[2024-03-11] MEDS: LOSARTAN 50 MG TAB PO STA (12:50)
--- NOTE | 2024-03-11 12:56 | P.PN ---
Subjective HISTORY OF PRESENT ILLNESS: Patient with chronic threatened limb ischemia on left side underwent prior SFA stenting. He had underwent angiogram with Dr. Shaikh and had a EKOS catheter placement. 03/09/2024 Yesterday patient was noticed to be hypotensive and had acute anemia. Because of concerns of left retroperitoneal hematoma we obtained a CTA which showed active oozing. For this patient had balloon tamponade of external iliac with Dr Khurram Shaikh yesterday. Post procedure patient had 4 hours of FemoStop placement. This morning he is more hemodynamically stable. He did have drop in his hemoglobin noticed today on repeat CBC and is therefore getting 1 unit of blood transfusion. He denies any right or left groin pain. He denies any abdominal pain at this time. 03/10/2024 Examined this morning at the bedside. Patient currently denies chest pain or pressure. She denies shortness of breath. Hemoglobin this morning 6.8. Martha ent is receiving 1 unit RBC. Creatinine today improved at 1.39. Blood pressures are elevated with a systolic ranging tween [id number]. 03/11/2024 Patient examined this morning to bedside. Patient currently denies any chest pain or pressure. She denies any shortness of breath. Hemoglobin today 8.5. Patient did receive 1 unit RBC transfusion yesterday. His Xarelto remains on hold. Blood pressures are elevated with a systolic in the 150s. PHYSICAL EXAM: VITAL SIGNS: Reviewed. GENERAL: Well-developed in no acute distress. NECK: Supple. No JVD or thyromegaly LUNGS: Respirations even and unlabored. Lungs essentially clear to auscultation bilaterally. HEART: Regular rate and rhythm. S1 and S2 heard. EXTREMITIES: Normal range of motion. No clubbing or cyanosis. Peripheral pulses intact. No lower extremity edema ASSESSMENT: Left-sided retroperitoneal hematoma due to left external iliac bleeding status post balloon tamponade Left SFA stent occlusion, status post tPA with EKOS and stent placement Severe peripheral arterial disease RUBEN Hypertension Hyperlipidemia Acute blood loss anemia Paroxysmal atrial fibrillation PLAN: Continue dual antiplatelet therapy with aspirin and Plavix Continue additional cardiac medications Continue to hold Xarelto. Continue to monitor hemoglobin Continue to monitor kidney function. Increase losartan to 100 mg daily Continue to monitor blood pressure Further recommendations pending patient course Nurse practitioner note has been reviewed by physician. Signing provider agrees with the documented findings, assessment, and plan of care documented by CNC MACHINE OPERATOR as a scribe. Objective - Vital Signs Vital signs: Vital Signs Temp 98.3 F 03/11/24 08:40 Pulse 85 03/11/24 08:40 Resp 17 03/11/24 08:40 BP 158/70 03/11/24 08:40 Pulse Ox 95 03/11/24 08:40 FiO2 Intake & Output 03/10/24 03/11/24 03/11/24 18:59 06:59 18:59 Intake Total 990 1267 550 Output Total 1700 1350 300 Balance -710 -83 250 Weight 83 kg Intake: IV 30 10 Invasive Line 1 30 10 Oral 680 1237 540 Blood Product 310 Rc As-1 Unit 310 [id number] Output: Urine 1700 1350 300 Other: Voiding Method Urinal Urinal Urinal - Labs CBC & Chem 7: 03/11/24 09:21 03/11/24 09:21 Labs: Abnormal Lab Results - Last 24 Hours (Table) 03/08/24 03/10/24 03/11/24 Range/Units 08:19 19:54 06:00 RBC (4.30-5.90) m/uL Hgb (13.0-17.5) gm/dL Hct (39.0-53.0) % RDW (11.5-15.5) % POC Glucose (mg/dL) 119 H 116 H (70-110) mg/dL Crossmatch See Detail 03/11/24 03/11/24 Range/Units 09:21 11:53 RBC 3.02 L (4.30-5.90) m/uL Hgb 8.5 L D (13.0-17.5) gm/dL Hct 25.7 L (39.0-53.0) % RDW 18.1 H (11.5-15.5) % POC Glucose (mg/dL) 115 H (70-110) mg/dL Crossmatch
[2024-03-11 16:46] LABS: Glucose,Whole Blood 115 mg/dL (70-110)
[2024-03-11 20:40] LABS: Glucose,Whole Blood 112 mg/dL (70-110)
[2024-03-11] MEDS ORDERED: hydrALAZINE HCL 25 MG TAB PO PRN (20:41)
--- NOTE | 2024-03-11 20:45 | P.PN ---
Subjective Patient is seen for follow-up for acute kidney injury. No significant complaints today. Serum creatinine 1.1. Objective - Vital Signs Vital signs: Vital Signs Temp 98.6 F 03/11/24 20:00 Pulse 83 03/11/24 20:00 Resp 18 03/11/24 20:00 BP 170/80 03/11/24 20:00 Pulse Ox 98 03/11/24 20:00 FiO2 Intake & Output 03/11/24 03/11/24 03/12/24 06:59 18:59 06:59 Intake Total 1267 1454 Output Total 1350 700 Balance -83 754 Weight 83 kg Intake: IV 30 20 Invasive Line 1 30 20 Oral 1237 1434 Output: Urine 1350 700 Other: Voiding Method Urinal Urinal - Labs CBC & Chem 7: 03/11/24 09:21 03/11/24 09:21 Labs: Abnormal Lab Results - Last 24 Hours (Table) 03/11/24 03/11/24 03/11/24 Range/Units 06:00 09:21 11:53 RBC 3.02 L (4.30-5.90) m/uL Hgb 8.5 L D (13.0-17.5) gm/dL Hct 25.7 L (39.0-53.0) % RDW 18.1 H (11.5-15.5) % POC Glucose (mg/dL) 116 H 115 H (70-110) mg/dL 03/11/24 03/11/24 Range/Units 16:45 20:39 RBC (4.30-5.90) m/uL Hgb (13.0-17.5) gm/dL Hct (39.0-53.0) % RDW (11.5-15.5) % POC Glucose (mg/dL) 115 H 112 H (70-110) mg/dL Assessment and Plan Assessment: 1. Acute kidney injury secondary to ATN secondary to contrast associated acute kidney injury as well as acute blood loss anemia. Creatinine peaked at 2.1 this admission and is improved to 1.1 today. UA is benign and ultrasound shows no evidence of hydronephrosis. 2. Peripheral arterial disease status post angiogram with proximal left SFA stent placement this admission. 3. Retroperitoneal bleed status post balloon tamponade of left iliac artery March 08, 2024. Status post PRBCs this admission. 4. Benign hypertension. 5. Diabetes mellitus. 6. Metabolic acidosis secondary to acute kidney injury. Improved. Plan: Continue off of diuretics and IV fluids. Continue with angiotensin receptor blockers.
[2024-03-11] MEDS: hydrALAZINE HCL 25 MG TAB PO STA (21:07)
[2024-03-11 23:38] VITALS: RESP 16
--- NOTE | 2024-03-12 05:13 | P.PN ---
Subjective Progress Note Date: 03/11/24 This is a pleasant 63-year-old male with medical history significant for peripheral arterial disease, chronic nicotine use, atrial fibrillation, diabetes mellitus, hypertension, hyperlipidemia, obstructive sleep apnea. Coronary artery disease with prior cardiac stenting. Patient comes into the hospital with complaints of severe left leg pain. He was in the hospital in January 2024 and underwent stenting of the left SFA with Dr. Shaikh. Since the procedure patient was continued on Plavix and Xarelto which he reports compliance with these medications. He did report some degree of numbness to the left leg but has also stated that he does have peripheral neuropathy. Over the last week he has experienced severe pain to his left leg starting in the thigh and now down into the foot ankle and states that in the last couple days it has been cramping in the calf when he has been attempting to ambulate. He came in for further evaluation. CT angiography of the left lower extremity reveals c omplete occlusion of the stented superficial femoral artery, complete occlusion of the upper popliteal artery with reconstruction of flow in the distal popliteal artery, dominant runoff to the ankle by the anterior and posterior tibial arteries. Majority of the peroneal artery appears patent but flow has not come from the level of the ankle. There is severe stenosis in the proximal left internal iliac artery with occlusion distally. There is mild aneurysmal dilation of the visualized distal abdominal aorta measuring 3 cm. He was admitted to the hospital under internal medicine with a consult placed to cardiology and vascular services. He is started on IV heparin and Xarelto is currently placed on hold. Did discuss with patient to bedside the importance of smoking cessation and he is agreeing. 03/07/2024 Patient is seen in follow-up today continues in the ICU with cardiology and vas cular surgery following maintained on IV heparin. Patient undergoing EKOS and plans on reevaluation with Dr. Shaikh in the [place] today. Will evaluate for further intervention required. Patient to continue telemetry monitoring and is currently stable. Patient sodium mildly low at 134 and will follow-up on repeat labs as creatinine is also 1.05. Blood sugars controlled and hemoglobin is 10.7, platelets 229. Patient is afebrile and white count normal with no reports of chest pain or palpitations. Patient currently n.p.o. for the procedure. Will await official report. 03/08/2024 Patient is evaluated today in follow up on the cardiac stepdown unit. He is status post stenting of the left SFA occluded graft. Patient will continue on dual antiplatelet therapy with Plavix and Xarelto for at least the next 6 months. Throughout the evening patient was up ambulating to the restroom and felt a pop in his left groin and now is on bedrest with severe pain to the left groin there is a slight bulge noted additionally patient was diaphoretic clammy and had a drop in blood pressure down to 87/59. He was given fluid bolus stat blood count reveals a hemoglobin of 7.1 which is a 3 g drop since yesterday he was given 1 unit of packed red blood cells and had stat CT imaging completed wh ich reveals acute extravasation of the left external iliac artery 2.8 cm above the inferior epigastric takeoff with blood products extending out to the retroperitoneum along the psoas muscle and into the left inguinal canal and left scrotum. Peripheral interventionalists notified and patient underwent balloon tamponade of the left external iliac artery bleed. Blood pressure up to 144/82. 03/09/2024 Patient is seen in follow-up today with cardiology following and patient is status post SFA stenting on the left and also angiogram with EKOS. Patient developed left retroperitoneal hematoma and CTA showing active oozing which required surgical intervention with balloon tamponade with Dr. Shaikh. Patient did have a noted drop in hemoglobin today of 6.9 and is receiving 1 unit of PRBC. Patient is currently in bed and has not gotten up as he reports nursing staff will not allow him as they were concerned of recurrent bleeding. Patient did require FemStop of the groin and there is no active bleeding noted currently. Repeat H&H ordered for this evening. Patient is afebrile with no reports of chest pain or shortness of breath. 03/10/2024 Patient is seen in follow-up this morning and patient's hemoglobin is found to be 6.9 today and will receive 1 unit of PRBC. Patient with concern there is continued bleeding we will have vascular reevaluate and appreciate input and recommendations as there was noted to be significantly losing and bleeding into the scrotum and groin. Patient is afebrile currently sitting up at the bedside and has not been up due to low hemoglobin and concerns for bleeding. Blood pressures are elevated and medications being adjusted per cardiology. 03/11/2024 Patient is seen in follow-up with cardiology following making adjustments to medications as blood pressure remains elevated. Hemoglobin is stable above 8 with no active bleeding noted. Patient continues to report some discomfort in the groin area although is less intense. Considering possible discharge planning in the next 24 hours although patient is concerned about prolonged hospitalization and generalized weakness. Will have PT/OT therapy evaluate the patient and social work is following in the event patient discharge planning requires ECF. Plan will be initially for patient to return home and will arrange for home care. Patient is afebrile with no reported chest pain or shortness of breath. review of systems: Constitutional: No reports of fatigue, no fever, or chills Cardiovascular: No reports of chest pain or palpitations Respiratory: No reports of shortness of breath or cough GI: No reports of nausea, vomiting, or diarrhea : No reports of dysuria or retention Neurovascular: reports of generalized weakness All medications have been reviewed PHYSICAL EXAMINATION: GENERAL: The patient is awake, alert and oriented x3, not in any acute distress. Well developed, well nourished. Elderly appearing HEENT: Pupils are round and equally reacting to light. EOMI. No scleral icterus. No conjunctival pallor. Normocephalic, atraumatic. No pharyngeal erythema. No thyromegaly. CARDIOVASCULAR: S1 and S2 present. No murmurs, rubs, or gallops. PULMONARY: Chest is clear to auscultation, no wheezing or crackles. ABDOMEN: Soft, nontender, nondistended, normoactive bowel sounds. No palpable organomegaly. MUSCULOSKELETAL: No joint swelling or deformity. EXTREMITIES: No cyanosis, clubbing, or pedal edema. Hematoma to the left groin, no obvious bruising noted. NEUROLOGICAL: Gross neurological examination did not reveal any focal deficits. Diffusely weak SKIN: No rashes. Assessment: Left superficial femoral artery stent occlusion status post stenting of the left SFA Acute external iliac/retroperitoneal bleed requiring emergent balloon tamponade. Acute blood loss anemia due to above hgb down to 6.9 status post 1 unit PRBC. Improving, hemoglobin above 8 with no bleeding noted Left upper popliteal occlusion with reconstruction of the distal popliteal artery Diabetes mellitus type 2 Mild acute kidney injury History of atrial fibrillation paroxysmal anticoag with Xarelto Coronary artery disease with prior cardiac stenting Chronic and ongoing nicotine use Hypertension Hyperlipidemia Obstructive sleep apnea without CPAP use History of right peripheral arterial disease with prior femtib bypass GI prophylaxis DVT prophylaxis, continued on aspirin and Plavix, Xarelto being held Full code Plan: Patient is now status post balloon tamponade of the left external iliac bleed Monitor hemoglobin q6h. Status post 2 unit PRBC. Hemoglobin is above 8 today with no active bleeding noted. Will follow-up on repeat labs Continue monitoring Accu-Cheks before meals and at bedtime and will continue with current regimen. Adjust insulins accordingly xarelto held, plavix and aspirin to be continued per cardiology.. Continue losartan, monitor blood pressure. Blood pressure medications is being adjusted by cardiology as blood pressure remains elevated Kidney functions improving and nephrology now following. Ultrasound of the kidneys ordered showing no hydronephrosis Discussed importance of smoking cessation with patient he says he smokes about 3 cigarettes/day refusing nicotine patch at this time. Discharge planning in process although patient is concerned about generalized weakness. Social work following in case patient may require ECF on discharge. Will consult PT/OT therapy for evaluation Will follow-up with repeat labs and monitor kidney functions and electrolytes. Monitor hemoglobin closely and any bleeding noted to the site. The impression and plan of care has been dictated by Breanne Bo, Nurse Practitioner as directed. Dr. Glenn MD I have performed a history and physical examination and medical decision making of this patient, discussed the same with the dictator, and agree with the dictators assessment and plan as written, documented as a scribe. Based on total visit time, I have performed more than 50% of this visit. Objective - Vital Signs Vital signs: Vital Signs Temp 98.3 F 03/11/24 12:53 Pulse 74 03/11/24 14:00 Resp 18 03/11/24 14:00 BP 173/75 03/11/24 12:53 Pulse Ox 98 03/11/24 12:53 FiO2 Intake & Output 03/10/24 03/11/24 03/11/24 18:59 06:59 18:59 Intake Total 990 1267 678 Output Total 1700 1350 300 Balance -710 -83 378 Weight 83 kg Intake: IV 30 20 Invasive Line 1 30 20 Oral 680 1237 658 Blood Product 310 Rc As-1 Unit 310 [id number] Output: Urine 1700 1350 300 Other: Voiding Method Urinal Urinal Urinal - Labs CBC & Chem 7: 03/11/24 09:21 03/11/24 09:21 Labs: Abnormal Lab Results - Last 24 Hours (Table) 03/08/24 03/10/24 03/11/24 Range/Units 08:19 19:54 06:00 RBC (4.30-5.90) m/uL Hgb (13.0-17.5) gm/dL Hct (39.0-53.0) % RDW (11.5-15.5) % POC Glucose (mg/dL) 119 H 116 H (70-110) mg/dL Crossmatch See Detail 03/11/24 03/11/24 Range/Units 09:21 11:53 RBC 3.02 L (4.30-5.90) m/uL Hgb 8.5 L D (13.0-17.5) gm/dL Hct 25.7 L (39.0-53.0) % RDW 18.1 H (11.5-15.5) % POC Glucose (mg/dL) 115 H (70-110) mg/dL Crossmatch
[2024-03-12 06:02] LABS: Glucose,Whole Blood 106 mg/dL (70-110)
[2024-03-12 06:54] LABS: Anisocytosis Slight; Basophils % (A) 0 %; Eosinophils # (A) 0.3 k/uL (0-0.7); Eosinophils % (A) 4 %; HCT 27.7 % (39.0-53.0); Hypochromasia Slight; Lymphocytes # (A) 1.1 k/uL (1.0-4.8); Lymphocytes % (A) 13 %; MCH 28.2 pg (25.0-35.0); MCHC 32.7 g/dL (31.0-37.0); MCV 86.3 fL (80.0-100.0); Mean Platelet Volume 8.3; Monocytes # (A) 0.5 k/uL (0-1.0); Monocytes % (A) 7 %; Neutrophils % (A) 74 %; Platelet Count 234 k/uL (150-450); Poikilocytosis Slight; RDW 17.8 % (11.5-15.5); WBC 8.1 k/uL (3.8-10.6)
[2024-03-12 07:18] LABS: African American GFR (CKD) >90 (>60 ml/min/1.73 sqM); Anion Gap 5 mmol/L; Blood Urea Nitrogen 7 mg/dL (9-20); Carbon Dioxide 26 mmol/L (22-30); Chloride 102 mmol/L (98-107); Glucose 100 mg/dL (74-99); Non-African American GFR(CKD) 79 (>60 ml/min/1.73 sqM); Potassium 3.9 mmol/L (3.5-5.1); Sodium 133 mmol/L (137-145)
[2024-03-12] MEDS: LOSARTAN 50 MG TAB PO SCH (09:59)
[2024-03-12] MEDS: amLODIPine 10 MG TAB PO SCH (10:21)
[2024-03-12] MEDS: hydrALAZINE HCL 25 MG TAB PO SCH (10:21)
[2024-03-12 10:50] VITALS: BP 135/62; PULSE 92; TEMP 98.2
[2024-03-12 11:38] LABS: Glucose,Whole Blood 116 mg/dL (70-110)
[2024-03-12 12:38] VITALS: BMI 24.0
--- NOTE | 2024-03-12 13:15 | P.PN ---
Subjective HISTORY OF PRESENT ILLNESS: Patient with chronic threatened limb ischemia on left side underwent prior SFA stenting. He had underwent angiogram with Dr. Shaikh and had a EKOS catheter placement. 03/09/2024 Yesterday patient was noticed to be hypotensive and had acute anemia. Because of concerns of left retroperitoneal hematoma we obtained a CTA which showed active oozing. For this patient had balloon tamponade of external iliac with Dr Khurram Shaikh yesterday. Post procedure patient had 4 hours of FemoStop placement. This morning he is more hemodynamically stable. He did have drop in his hemoglobin noticed today on repeat CBC and is therefore getting 1 unit of blood transfusion. He denies any right or left groin pain. He denies any abdominal pain at this time. 03/10/2024 Examined this morning at the bedside. Patient currently denies chest pain or pressure. She denies shortness of breath. Hemoglobin this morning 6.8. Martha ent is receiving 1 unit RBC. Creatinine today improved at 1.39. Blood pressures are elevated with a systolic ranging tween [id number]. 03/11/2024 Patient examined this morning to bedside. Patient currently denies any chest pain or pressure. She denies any shortness of breath. Hemoglobin today 8.5. Patient did receive 1 unit RBC transfusion yesterday. His Xarelto remains on hold. Blood pressures are elevated with a systolic in the 150s. 03/12/2024 Patient examined at this morning the bedside. Patient currently denies chest pain or pressure. He denies shortness of breath. Hemoglobin remains stable at 9.0 this morning. Blood pressure remains elevated with a systolic in the 160s. PHYSICAL EXAM: VITAL SIGNS: Reviewed. GENERAL: Well-developed in no acute distress. NECK: Supple. No JVD or thyromegaly LUNGS: Respirations even and unlabored. Lungs essentially clear to auscultation bilaterally. HEART: Regular rate and rhythm. S1 and S2 heard. EXTREMITIES: Normal range of motion. No clubbing or cyanosis. Peripheral pulses intact. No lower extremity edema ASSESSMENT: Left-sided retroperitoneal hematoma due to left external iliac bleeding status post balloon tamponade Left SFA stent occlusion, status post tPA with EKOS and stent placement Severe peripheral arterial disease RUBEN Hypertension Hyperlipidemia Acute blood loss anemia Paroxysmal atrial fibrillation PLAN: Continue dual antiplatelet therapy with aspirin and Plavix Continue additional cardiac medications Continue to hold Xarelto. Continue to monitor hemoglobin Continue to monitor kidney function. Increase amlodipine to 10 mg daily Add hydralazine 25 mg 3 times daily Discontinue PRN antihypertensive medications as this makes it difficult to determine appropriate oral regimen Continue to monitor blood pressure Further recommendations pending patient course Nurse practitioner note has been reviewed by physician. Signing provider agrees with the documented findings, assessment, and plan of care documented by [facility] as a scribe. Objective - Vital Signs Vital signs: Vital Signs Temp 98.2 F 03/12/24 09:55 Pulse 92 03/12/24 09:55 Resp 16 03/12/24 09:55 BP 135/62 03/12/24 09:55 Pulse Ox 94 L 03/12/24 09:55 FiO2 Intake & Output 03/11/24 03/12/24 03/12/24 18:59 06:59 18:59 Intake Total 1454 1060 118 Output Total 700 1650 Balance 754 -590 118 Weight 76 kg 76 kg Intake: IV 20 20 Invasive Line 1 20 20 Oral 1434 1040 118 Output: Urine 700 1650 Other: Voiding Method Urinal Urinal # Voids 2 # Bowel Movements 1 - Labs CBC & Chem 7: 03/12/24 06:42 03/12/24 06:42 Labs: Abnormal Lab Results - Last 24 Hours (Table) 03/11/24 03/11/24 03/12/24 Range/Units 16:45 20:39 06:42 RBC 3.20 L (4.30-5.90) m/uL Hgb 9.0 L (13.0-17.5) gm/dL Hct 27.7 L (39.0-53.0) % RDW 17.8 H (11.5-15.5) % Sodium (137-145) mmol/L BUN (9-20) mg/dL Glucose (74-99) mg/dL POC Glucose (mg/dL) 115 H 112 H (70-110) mg/dL 03/12/24 03/12/24 Range/Units 06:42 11:36 RBC (4.30-5.90) m/uL Hgb (13.0-17.5) gm/dL Hct (39.0-53.0) % RDW (11.5-15.5) % Sodium 133 L (137-145) mmol/L BUN 7 L (9-20) mg/dL Glucose 100 H (74-99) mg/dL POC Glucose (mg/dL) 116 H (70-110) mg/dL
--- NOTE | 2024-03-12 21:48 | P.PN ---
Subjective Patient is seen for follow-up for acute kidney injury. No significant complaints today. Serum creatinine 1.0. Objective - Vital Signs Vital signs: Vital Signs Temp 98.2 F 03/12/24 09:55 Pulse 92 03/12/24 09:55 Resp 16 03/12/24 09:55 BP 135/62 03/12/24 09:55 Pulse Ox 94 L 03/12/24 09:55 FiO2 Intake & Output 03/12/24 03/12/24 03/13/24 06:59 18:59 06:59 Intake Total 1060 118 Output Total 1650 650 Balance -590 -532 Weight 76 kg 76 kg Intake: IV 20 Invasive Line 1 20 Oral 1040 118 Output: Urine 1650 650 Other: Voiding Method Urinal # Voids 2 1 # Bowel Movements 1 - Exam Patient is awake, comfortable, no acute distress. Examination of the heart S1 and S2 Examination of the lungs bilateral breath sounds are heard Abdomen is soft nontender Examination of lower extremities shows no significant edema - Labs CBC & Chem 7: 03/12/24 06:42 03/12/24 06:42 Labs: Abnormal Lab Results - Last 24 Hours (Table) 03/12/24 03/12/24 03/12/24 Range/Units 06:42 06:42 11:36 RBC 3.20 L (4.30-5.90) m/uL Hgb 9.0 L (13.0-17.5) gm/dL Hct 27.7 L (39.0-53.0) % RDW 17.8 H (11.5-15.5) % Sodium 133 L (137-145) mmol/L BUN 7 L (9-20) mg/dL Glucose 100 H (74-99) mg/dL POC Glucose (mg/dL) 116 H (70-110) mg/dL Assessment and Plan Assessment: 1. Acute kidney injury secondary to ATN secondary to contrast associated acute kidney injury as well as acute blood loss anemia. Creatinine peaked at 2.1 this admission and is improved to 1.0 today. UA is benign and ultrasound shows no ev idence of hydronephrosis. 2. Peripheral arterial disease status post angiogram with proximal left SFA stent placement this admission. 3. Retroperitoneal bleed status post balloon tamponade of left iliac artery March 08, 2024. Status post PRBCs this admission. 4. Benign hypertension. 5. Diabetes mellitus. 6. Metabolic acidosis secondary to acute kidney injury. Improved. Plan: Continue off of diuretics and IV fluids. Continue with angiotensin receptor blockers.
[2024-03-13] MEDS ORDERED: amLODIPine 5 MG TAB PO SCH (09:00)
== END 2024-03-12 16:52 | disposition home health service (06) | DRG 270 ==
LOC: EC 22:01 → 3SCARD 03-06 01:24 → 2SICU 03-06 18:06 → 3SCARD 03-08 00:08
PROVIDERS: ADMIT Hospitalist; ATTEND Hospitalist
PROC: 3E05317 Introduction of Other Thrombolytic into Peripheral Artery, Percutaneous Approach (ICD-10-PCS; 2024-03-06)
PROC: 04FL3Z0 Fragmentation of Left Femoral Artery, Percutaneous Approach, Ultrasonic (ICD-10-PCS; 2024-03-06 14:55)
PROC: 04CL3ZZ Extirpation of Matter from Left Femoral Artery, Percutaneous Approach (ICD-10-PCS; principal; 2024-03-07 10:30)
PROC: 047L34Z Dilation of Left Femoral Artery with Drug-eluting Intraluminal Device, Percutaneous Approach (ICD-10-PCS; 2024-03-07 10:30)
PROC: 04Q Lower Arteries, Repair (ICD-10-PCS; 2024-03-08)
DX: T82.898A Other specified complication of vascular prosthetic devices, implants and grafts, initial encounter (principal); K68.3 Retroperitoneal hematoma; N17.0 Acute kidney failure with tubular necrosis; E87.20 Acidosis, unspecified; D62 Acute posthemorrhagic anemia; I48.0 Paroxysmal atrial fibrillation; I70.202 Unspecified atherosclerosis of native arteries of extremities, left leg; E11.42 Type 2 diabetes mellitus with diabetic polyneuropathy; I10 Essential (primary) hypertension; I42.9 Cardiomyopathy, unspecified; I70.222 Atherosclerosis of native arteries of extremities with rest pain, left leg; E78.5 Hyperlipidemia, unspecified; F17.210 Nicotine dependence, cigarettes, uncomplicated; F41.9 Anxiety disorder, unspecified; E11.51 Type 2 diabetes mellitus with diabetic peripheral angiopathy without gangrene; G47.33 Obstructive sleep apnea (adult) (pediatric); I25.10 Atherosclerotic heart disease of native coronary artery without angina pectoris; I25.2 Old myocardial infarction; I45.10 Unspecified right bundle-branch block; I71.43 Infrarenal abdominal aortic aneurysm, without rupture; I70.0 Atherosclerosis of aorta; N40.0 Benign prostatic hyperplasia without lower urinary tract symptoms; S30.21XA Contusion of penis, initial encounter; T50.8X5A Adverse effect of diagnostic agents, initial encounter; Z96.641 Presence of right artificial hip joint; Y83.1 Surgical operation with implant of artificial internal device as the cause of abnormal reaction of the patient, or of later complication, without mention of misadventure at the time of the procedure; Z79.01 Long term (current) use of anticoagulants; Z79.02 Long term (current) use of antithrombotics/antiplatelets; Z79.82 Long term (current) use of aspirin; Z79.84 Long term (current) use of oral hypoglycemic drugs; Z79.899 Other long term (current) drug therapy; Z86.718 Personal history of other venous thrombosis and embolism; Z95.5 Presence of coronary angioplasty implant and graft; Z95.820 Peripheral vascular angioplasty status with implants and grafts
CPT/HCPCS: 36415; 36430; 37211; 37214; 37221; 37227; 61645; 71275; 74018; 74174; 75710; 76770; 80048; 80053; 81003; 83605; 83735; 85025; 85027; 85384; 85610; 85730; 86850; 86900; 86901; 86920; 93005; 96361; 96365; 96372; 96375; 99285

== ENCOUNTER → 2024-04-14 | Outpatient (CLI) | payer MEDICARE, OTHER ==
[2024-04-14 15:06] LABS: HCT 48.8 % (39.6-50.0); HGB 14.8 g/dL (13.0-17.0); MCHC 30.3 g/dL (32.0-37.0); MCV 95.7 FL (80.0-97.0); Mean Platelet Volume 9.6 FL (9.5-12.2); NRBC Per 100 WBC 0 X 10*3/uL (0.00-0.01); Platelet Count 270 X 10*3/uL (140-440); RDW 20.6 % (11.5-14.5); WBC 8.51 X 10*3/uL (4.50-10.00)
[2024-04-14 15:15] LABS: Blood Urea Nitrogen 8.4 mg/dL (9.0-27.0); Calcium 9.6 mg/dL (8.7-10.3); Carbon Dioxide 25.4 mmol/L (21.6-31.8); Chloride 103 mmol/L (96-109); Glucose 110 mg/dL (70-110); Potassium 4.9 mmol/L (3.5-5.5); Sodium 140 mmol/L (135-145)
== END | disposition home or self-care (01) ==
LOC: LABWHC1 10:09
PROVIDERS: ATTEND Internal Medicine
DX: D64.9 Anemia, unspecified (principal)
CPT/HCPCS: 36415; 80048; 85027

== ENCOUNTER 2024-06-09 16:40 | Inpatient (IN) | payer MEDICARE, OTHER ==
--- NOTE | 2024-06-09 17:31 | ED ---
General Adult HPI - General Chief complaint: Extremity Problem,Nontraumatic Stated complaint: B/L Leg Pain Time Seen by Provider: 06/09/24 17:27 Source: patient, RN notes reviewed Mode of arrival: ambulatory Limitations: no limitations - History of Present Illness Initial comments: 64-year-old male with multiple comorbid conditions including A-fib, diabetes, DVT, PAD presenting to the emergency department for complaint of bilateral leg pain. Patient has had multiple vascular procedures of bilateral legs with most recent of the left lower extremity in February where a stent was placed. Patient states he has not been taking his medications over the past month. Over the past 2 to 3 days he has been having worsening pain of bilateral legs is exacerba david with walking. He states earlier today he had an episode of mild chest pain with ambulation that lasted for a few moments and quickly dissipated. Denies difficulty breathing. - Related Data Home Medications Medication Instructions Recorded Confirmed No Known Home Medications 06/09/24 06/09/24 Allergies Allergy/AdvReac Type Severity Reaction Status Date / Time No Known Allergies Allergy Verified 06/09/24 18:22 Review of Systems ROS Statement: Those systems with pertinent positive or pertinent negative responses have been documented in the HPI. ROS Other: All systems not noted in ROS Statement are negative. Past Medical History Past Medical History: Atrial Fibrillation, Diabetes Mellitus, Deep Vein Thrombosis (DVT), Hyperlipidemia, Hypertension, Prostate Disorder, Sleep Apnea/CPAP/BIPAP, Vascular Disorder Additional Past Medical History / Comment(s): Hx "mini heart attack/scarring long time ago". Cardiomyopathy. PAD. Varicose veins. Enlarged prostate. No CPAP use. History of Any Multi-Drug Resistant Organisms: MRSA Date of last positivie culture/infection: 07/05/21 MDRO Source:: Left Ankle Past Surgical History: Heart Catheterization With Stent, Joint Replacement Additional Past Surgical History / Comment(s): Stent to right leg, vein graft right leg, right femoral bypass, stents to left leg, right hip replacement. Past Anesthesia/Blood Transfusion Reactions: No Reported Reaction Date of Last Stent Placement:: Unknown Past Psychological History: Anxiety Smoking Status: Current every day smoker Past Alcohol Use History: Occasional Past Drug Use History: None Reported - Past Family History Mother Family Medical History: Diabetes Mellitus, Hypertension Additional Family Medical History / Comment(s): Family history of varicose veins. Father Family Medical History: CVA/TIA, Myocardial Infarction ([place]) General Exam Limitations: no limitations General appearance: alert, in no apparent distress ENT exam: Present: normal exam, mucous membranes moist Neck exam: Present: normal inspection. Absent: tenderness, meningismus, lymphadenopathy Respiratory exam: Present: normal lung sounds bilaterally. Absent: respiratory distress, wheezes, rales, rhonchi, stridor Cardiovascular Exam: Present: regular rate, normal rhythm, normal heart sounds. Absent: systolic murmur, diastolic murmur, rubs, gallop, clicks GI/Abdominal exam: Present: soft, normal bowel sounds. Absent: distended, tenderness, guarding, rebound, rigid Extremities exam: Present: tenderness, other (bilateral lower extremity pain, unable to palpate pedal pulses however extremities are warm to the touch and have sensation) Back exam: Present: normal inspection Neurological exam: Present: alert, oriented X3, CN II-XII intact Course Vital Signs 06/09/24 06/09/24 06/09/24 17:00 20:12 21:17 Temperature 97.4 F L Pulse Rate 92 94 85 Respiratory 16 18 18 Rate Blood Pressure 146/91 192/130 168/122 O2 Sat by Pulse 97 94 L 95 Oximetry 06/09/24 21:41 Temperature 98.3 F Pulse Rate 88 Respiratory 18 Rate Blood Pressure 186/88 O2 Sat by Pulse 95 Oximetry Medical Decision Making - Medical Decision Making Was pt. sent in by a medical professional or institution (, PA, SECURITY SYSTEMS MANAGER, urgent care, hospital, or custodial...) When possible be specific @ -No Did you speak to anyone other than the patient for history (EMS, parent, family, police, friend...)? What history was obtained from this source @ -No Did you review nursing and triage notes (agree or disagree)? Why? @ -I reviewed and agree with nursing and triage notes Were old charts reviewed (outside hosp., previous admission, EMS record, old EKG, old radiological studies, urgent care reports/EKG's, custodial records)? Report findings @ -No old charts were reviewed Differential Diagnosis (chest pain, altered mental status, abdominal pain women, abdominal pain men, vaginal bleeding, weakness, fever, dyspnea, syncope, headache, dizziness, GI bleed, back pain, seizure, CVA, palpatations, mental health, musculoskeletal)? @ -Differential Chest Pain: Stable Angina, Unstable Angina, STEMI, NSTEMI Aortic Dissection, Pneumothorax, Musculoskeletal, Esophageal Spasm GERD, Cholecystitis, Pancreatitis, Zoster, this is not meant to be an all-inclusive list. EKG interpreted by me (3pts min.). @ -Completed at 1818 sinus rhythm with a ventricular rate of 80, ME interval 154, QRS 136, QTc 444. X-rays interpreted by me (1pt min.). @ -None done CT interpreted by me (1pt min.). @ -CTA of bilateral lower extremities reveals a new occlusion of the anterior right common femoral artery graft and subcutaneous tissue from origin to insertion right lower leg with a similar question of left superior femoral artery stent grafting and similar occlusion of the right superficial femoral artery extending through distal stent graft, posterior tibial artery is not well-appreciated U/S interpreted by me (1pt. min.). @ -None done What testing was considered but not performed or refused? (CT, X-rays, U/S, labs)? Why? @ -None What meds were considered but not given or refused? Why? @ -None Did you discuss the management of the patient with other professionals (professionals i.e. , PA, SECURITY SYSTEMS MANAGER, lab, RT, psych nurse, clinical social work aide, feedmobile driver, teacher, wildlife conservation officer, case management assistant)? Give summary @ -Spoke with on-call vascular specialist, Dr. Ordoñez, was recommended that patient be placed on heparin with admission to internal medicine and vascular consult. I spoke with Kourtney from [facility] she was agreed to admit the patient. Was smoking cessation discussed for >3mins.? @ -No Was critical care preformed (if so, how long)? @ -No Were there social determinants of health that impacted care today? How? (Homelessness, low income, unemployed, alcoholism, drug addiction, transportation, low edu. Level, literacy, decrease access to med. care, senior care, rehab)? @ -No Was there de-escalation of care discussed even if they declined (Discuss DNR or withdrawal of care, Hospice)? DNR status @ -No What co-morbidities impacted this encounter? (DM, HTN, Smoking, COPD, CAD, Cancer, CVA, ARF, Chemo, Hep., AIDS, mental health diagnosis, sleep apnea, morbid obesity)? @ -None Was patient admitted / discharged? Hospital course, mention meds given and route, prescriptions, significant lab abnormalities, going to OR and other pertinent info. @ - admitted. 64 male presented to emergency department with complaint of bilateral extremity pain. Pain is reproducible however extremities are blanchable however pedal pulses were unable to be palpated with doppler either. extremities are warm to the touch and this is a chronic ailment of the patient. Skin is blanchable and capillary pulses mildly diminished. Laboratory testing is unremarkable. Troponin nonelevated at 0.012. CT of bilateral lower extremities reveals new occlusion of the right anterior common femoral artery graft. Patient will be started on IV heparin and admitted to internal medicine with vascular cardiology consult. Case discussed with Dr. Rizo Undiagnosed new problem with uncertain prognosis? @ -No Drug Therapy requiring intensive monitoring for toxicity (Heparin, Nitro, Insulin, Cardizem)? @ -No Were any procedures done? @ -No Diagnosis/symptom? @ -Anterior right femoral artery occlusion, peripheral arterial disease Acute, or Chronic, or Acute on Chronic? @ -Acute, acute on chronic Uncomplicated (without systemic symptoms) or Complicated (systemic symptoms)? @ -Complicated Side effects of treatment? @ -No Exacerbation, Progression, or Severe Exacerbation? @ -No Poses a threat to life or bodily function? How? (Chest pain, [place], [place], pneumonia, PE, COPD, DKA, ARF, appy, cholecystitis, CVA, Diverticulitis, Homicidal, [place]edman icidal, threat to staff... and all critical care pts) @ -yes, could lead to irreversible limb ischemia if left untreated - Lab Data Result diagrams: 06/09/24 18:25 06/09/24 18:25 Lab Results 06/09/24 06/09/24 06/09/24 Range/Units 18:25 18:25 18:25 WBC 10.09 H (4.50-10.00) 10*3/uL RBC 5.01 (4.40-5.60) 10*6/uL Hgb 14.9 (13.0-17.0) g/dL Hct 44.5 (39.6-50.0) % MCV 88.8 (80.0-97.0) fL MCH 29.7 (27.0-32.0) pg MCHC 33.5 (32.0-37.0) g/dL Plt Count 215 (140-440) 10*3/uL MPV 9.9 (9.5-12.2) fL Immature Gran % (Auto) 0.5 % Neutrophils % 81.8 % Lymphocytes % 11.0 % Monocytes % 5.9 % Eosinophils % 0.5 % Basophils % 0.3 % Immature Gran # 0.05 H (0.00-0.04) 10*3/uL Neutrophils # 8.25 H (1.80-7.70) 10*3/uL Lymphocytes # 1.11 (0.90-5.00) 10*3/uL Monocytes # 0.60 (0.20-1.00) 10*3/uL Eosinophils # 0.05 (0.04-0.35) 10*3/uL Basophils # 0.03 (0.00-0.10) 10*3/uL PT 11.0 (10.0-12.5) sec INR 1.0 (<1.2) APTT 23.2 (22.0-30.0) sec Sodium 134 L (137-145) mmol/L Potassium 5.4 H (3.5-5.1) mmol/L Chloride 101 (98-107) mmol/L Carbon Dioxide 23 (22-30) mmol/L Anion Gap 10 mmol/L BUN 20 (9-20) mg/dL Creatinine 1.46 H (0.66-1.25) mg/dL Est GFR (CKD-EPI)AfAm 58 (>60 ml/min/1.73 sqM) Est GFR (CKD-EPI)NonAf 51 (>60 ml/min/1.73 sqM) Glucose 96 (74-99) mg/dL Calcium 9.7 (8.4-10.2) mg/dL Magnesium 2.3 (1.6-2.3) mg/dL Total Bilirubin 0.7 (0.2-1.3) mg/dL AST 37 (17-59) U/L ALT 25 (4-49) U/L Alkaline Phosphatase 82 (38-126) U/L Troponin I (0.000-0.034) ng/mL Total Protein 7.6 (6.3-8.2) g/dL Albumin 4.5 (3.5-5.0) g/dL 06/09/24 Range/Units 18:25 WBC (4.50-10.00) 10*3/uL RBC (4.40-5.60) 10*6/uL Hgb (13.0-17.0) g/dL Hct (39.6-50.0) % MCV (80.0-97.0) fL MCH (27.0-32.0) pg MCHC (32.0-37.0) g/dL Plt Count (140-440) 10*3/uL MPV (9.5-12.2) fL Immature Gran % (Auto) % Neutrophils % % Lymphocytes % % Monocytes % % Eosinophils % % Basophils % % Immature Gran # (0.00-0.04) 10*3/uL Neutrophils # (1.80-7.70) 10*3/uL Lymphocytes # (0.90-5.00) 10*3/uL Monocytes # (0.20-1.00) 10*3/uL Eosinophils # (0.04-0.35) 10*3/uL Basophils # (0.00-0.10) 10*3/uL PT (10.0-12.5) sec INR (<1.2) APTT (22.0-30.0) sec Sodium (137-145) mmol/L Potassium (3.5-5.1) mmol/L Chloride (98-107) mmol/L Carbon Dioxide (22-30) mmol/L Anion Gap mmol/L BUN (9-20) mg/dL Creatinine (0.66-1.25) mg/dL Est GFR (CKD-EPI)AfAm (>60 ml/min/1.73 sqM) Est GFR (CKD-EPI)NonAf (>60 ml/min/1.73 sqM) Glucose (74-99) mg/dL Calcium (8.4-10.2) mg/dL Magnesium (1.6-2.3) mg/dL Total Bilirubin (0.2-1.3) mg/dL AST (17-59) U/L ALT (4-49) U/L Alkaline Phosphatase (38-126) U/L Troponin I 0.012 (0.000-0.034) ng/mL Total Protein (6.3-8.2) g/dL Albumin (3.5-5.0) g/dL Disposition Clinical Impression: Peripheral arterial occlusive disease, Occlusion of right femoral artery Disposition: ADMITTED IP TO THIS [facility] Condition: Stable Decision to Admit Reason: Admit from EC Decision Date: 06/09/24 Decision Time: 21:14
[2024-06-09] MEDS: HYDROmorphone 0.5 MG/0.5 ML SYRINGE IVP STA (18:25)
[2024-06-09 18:44] LABS: Basophils # (A) 0.03 10*3/uL (0.00-0.10); Basophils % (A) 0.3 %; Eosinophils # (A) 0.05 10*3/uL (0.04-0.35); Eosinophils % (A) 0.5 %; HCT 44.5 % (39.6-50.0); HGB 14.9 g/dL (13.0-17.0); Lymphocytes # (A) 1.11 10*3/uL (0.90-5.00); MCH 29.7 pg (27.0-32.0); MCHC 33.5 g/dL (32.0-37.0); MCV 88.8 fL (80.0-97.0); Mean Platelet Volume 9.9 fL (9.5-12.2); Monocytes % (A) 5.9 %; Neutrophils # (A) 8.25 10*3/uL (1.80-7.70); Neutrophils % (A) 81.8 %; Platelet Count 215 10*3/uL (140-440); RBC 5.01 10*6/uL (4.40-5.60); RDW 15.9 % (11.5-14.5); WBC 10.09 10*3/uL (4.50-10.00)
[2024-06-09 18:54] LABS: Partial Thromboplastin Time 23.2 sec (22.0-30.0)
[2024-06-09 19:03] LABS: ALT 25 U/L (4-49); AST 37 U/L (17-59); African American GFR (CKD) 58 (>60 ml/min/1.73 sqM); Albumin 4.5 g/dL (3.5-5.0); Alkaline Phosphatase 82 U/L (38-126); Anion Gap 10 mmol/L; Blood Urea Nitrogen 20 mg/dL (9-20); Calcium 9.7 mg/dL (8.4-10.2); Carbon Dioxide 23 mmol/L (22-30); Chloride 101 mmol/L (98-107); Glucose 96 mg/dL (74-99); Magnesium 2.3 mg/dL (1.6-2.3); Non-African American GFR(CKD) 51 (>60 ml/min/1.73 sqM); Potassium 5.4 mmol/L (3.5-5.1); Sodium 134 mmol/L (137-145); Total Bilirubin 0.7 mg/dL (0.2-1.3); Total Protein 7.6 g/dL (6.3-8.2)
--- NOTE | 2024-06-09 20:28 | CT ---
EXAMINATION TYPE: CT angio lower extremity BILAT DATE OF EXAM: 06/09/2024 7:31 PM COMPARISON: 03/05/2024. CLINICAL INDICATION: Male, 64 years old with history of Bi. lat. LE pain, hx arterial clots/stents; P HH, Bi. lat. LE pain, hx arterial clots/stents TECHNIQUE: CT angio lower extremity BILAT Multiple thin slice sub-millimeter images were obtained before and after administration of contrast. 3-D reconstructed images and maximum intensity projection images were obtained on a separate works tation. CT angio lower extremity BILAT CT Contrast: Contrast used:100 ml mL of Isovue 370 with IV Contrast, Oral contrast used: None CT DLP: 1165.2 mGycm, Automated exposure control for dose reduction was used. FINDINGS: CTA Abdomen and pelvis: Arthrosclerosis of the visualized abdominal aorta with mural thrombus and ane urysmal dilation up to 31 mm. The common iliac arteries are patent. The external iliac arteries are p atent. Scattered atherosclerotic plaque is identified. CTA Lower extremities: Right: The common femoral artery is patent. The superficial femoral artery is occluded sending disc has its origin through a distal superficial femoral artery stent graft with reconstitution below the knee wit hin the anterior tibial artery. Anterior tibial artery is diminutive and cross the ankle the posterio r tibial artery is not visualized. The anterior bypass graft off the common femoral artery is occluded just past its origin through its entirety. Left: Left common femoral artery is patent. There is a occluded left superficial femoral artery stent graft from its origin to the posterior artery as well as reconstitution. The posterior tibial artery cross es the ankle. Anterior tibial artery is not definitively crossing ankle. BLADDER: Unremarkable REPRODUCTIVE: Unremarkable. STOMACH AND BOWEL: No evidence of bowel obstruction. PERITONEUM: No evidence of pneumoperitoneum or free fluid. VASCULATURE: No evidence of aortic aneurysm. MUSCULOSKELETAL: Mild disc degeneration changes are present throughout the thoracolumbar spine., righ t hip arthroplasty appears intact. LYMPH NODES: No gross evidence for lymphadenopathy. SOFT TISSUE/ABDOMINAL WALL: Bilateral fat-containing ventral hernias left greater than right. IMPRESSION: * New Occlusion of anterior right common femoral artery graft in the subcutaneous tissues from its o rigin to its insertion in the lower leg which is poorly visualized due to lack of contrast in this ve ssel. * Similar Occlusion of the left superficial femoral artery stent graft extending from its origin to the left popliteal artery with reconstitution. The Left posterior tibial artery crosses the ankle the anterior tibial artery and left does not well appreciated crossing the ankle. Consider reduction plant supervisor alphonso ography for further evaluation. * Similar Occlusion of the right superficial femoral artery extending through a distal stent grafts with reconstitution of the anterior tibial artery. The posterior tibial arteries not well appreciated . Consider reduction plant supervisor angiography for further evaluation. * Infrarenal abdominal aortic aneurysm dilation up to 31 mm, stable. [facility], , 06/09/2024 8:25 PM
[2024-06-09] MEDS: hydrALAZINE HCL 20 MG/ML 1 ML VIAL IVP STA (21:13)
[2024-06-09] MEDS: HYDROmorphone 1 MG/ML 1 ML SYRINGE IVP STA (21:15)
[2024-06-09] MEDS ORDERED: NALOXONE 0.4 MG/ML 1 ML VIAL IV PRN (21:24)
[2024-06-09] MEDS ORDERED: ACETAMINOPHEN TAB 325 MG TAB PO PRN (21:24)
[2024-06-09] MEDS: HEPARIN SODIUM 1,000 UN/ML (10ML VL) IV ONE (21:35)
[2024-06-09] MEDS: HEPARIN SOD,PORK IN 0.45% NACL 25,000 UNIT in 0.45% NACL 1 250ML.BAG IV SCH (21:38)
[2024-06-10 01:21] LABS: Glucose,Whole Blood 73 mg/dL (70-110)
[2024-06-10] MEDS: HYDROmorphone 0.5 MG/0.5 ML SYRINGE IVP PRN (01:27)
[2024-06-10] MEDS: HEPARIN SODIUM 1,000 UN/ML (10ML VL) IV PRN (04:29)
[2024-06-10 08:08] LABS: Basophils # (A) 0.07 10*3/uL (0.00-0.10); Basophils % (A) 0.8 %; Eosinophils # (A) 0.39 10*3/uL (0.04-0.35); Eosinophils % (A) 4.4 %; HCT 43.6 % (39.6-50.0); HGB 14.5 g/dL (13.0-17.0); Lymphocytes # (A) 1.89 10*3/uL (0.90-5.00); Lymphocytes % (A) 21.3 %; MCH 29.5 pg (27.0-32.0); MCHC 33.3 g/dL (32.0-37.0); MCV 88.6 fL (80.0-97.0); Mean Platelet Volume 9.7 fL (9.5-12.2); Monocytes # (A) 0.69 10*3/uL (0.20-1.00); Monocytes % (A) 7.8 %; Neutrophils # (A) 5.81 10*3/uL (1.80-7.70); Neutrophils % (A) 65.4 %; Platelet Count 210 10*3/uL (140-440); RBC 4.92 10*6/uL (4.40-5.60); RDW 15.9 % (11.5-14.5); WBC 8.88 10*3/uL (4.50-10.00)
[2024-06-10 08:45] LABS: ALT 21 U/L (4-49); AST 30 U/L (17-59); African American GFR (CKD) 76 (>60 ml/min/1.73 sqM); Albumin 3.8 g/dL (3.5-5.0); Alkaline Phosphatase 82 U/L (38-126); Anion Gap 11 mmol/L; Blood Urea Nitrogen 19 mg/dL (9-20); Calcium 9.2 mg/dL (8.4-10.2); Carbon Dioxide 22 mmol/L (22-30); Chloride 102 mmol/L (98-107); Glucose 88 mg/dL (74-99); Non-African American GFR(CKD) 65 (>60 ml/min/1.73 sqM); Potassium 4.2 mmol/L (3.5-5.1); Sodium 135 mmol/L (137-145); Total Bilirubin 0.6 mg/dL (0.2-1.3); Total Protein 6.7 g/dL (6.3-8.2)
--- NOTE | 2024-06-10 10:48 | P.GSCN ---
History of Present Illness Consult date: 06/10/24 Reason for Consult: Peripheral arterial disease, occlusion Requesting physician: Maite Hernandez History of present illness: This is a 64-year-old male with significant history of peripheral arterial disease, varicose veins, coronary artery disease with history of heart stent, diabetes mellitus, tobacco use, atrial fibrillation, deep vein thrombosis, hyperlipidemia, hypertension, BPH and sleep apnea who presented to the emergency department with complaints of by lower lower extremity pain. Patient has had a multiple revascularizations of the lower extremities and has been seen by vascular surgery as well as interventional cardiology. History of right femoral to anterior tibial artery bypass with CryoVein graft, previous right lower extremity stenting as well as left lower extremity stent.. He was last seen by Dr. Shaikh from interventional cardiology for left SFA occlusion and underwent EKOS tPA catheter placement with SFA stent placement at end of January 2024. Followed by left lower extremity angiogram with penumbra aspiration thrombectomy of left SFA, left SFA atherectomy in February 2024. He then had to undergo left external iliac artery balloon tamponade secondary to arterial bleed. Patient states he is had pain for the last month or so bilateral lower extremities left greater than right. Reports that as achy discomfort down both legs. After his last hospitalization in February of this year he was supposed to follow-up with cardiology as well as establish with Dr. Romo as a PCP. He states he has not followed up. He has been out of his medications since March. He has not been taking any of his scheduled home medications. Patient states that he is trying to quit smoking he has been using the patch but is still smoking occasionally. CT angiogram of bilateral lower extremities with reported findings of new occlusion of anterior right common femoral artery graft, similar occlusion of the left SFA stent graft from its origin the left popliteal artery with reconstitution similar occlusion of the right SFA extending throughout the distal stent grafts with reconstitution of the anterior tibial artery. Vascular surgery was consulted for peripheral arterial disease with occlusion. Patient was started on IV heparin drip. He states he is able to move his feet and toes. He has been able to walk. Denies any shortness of breath or chest pain. Review of Systems A 14 point review systems was completed all pertinent positives and negatives as stated in the HPI. Past Medical History Past Medical History: Atrial Fibrillation, Diabetes Mellitus, Deep Vein Thrombosis (DVT), Hyperlipidemia, Hypertension, Prostate Disorder, Sleep Apnea/CPAP/BIPAP, Vascular Disorder Additional Past Medical History / Comment(s): Hx "mini heart attack/scarring long time ago". Cardiomyopathy. PAD. Varicose veins. Enlarged prostate. No CPAP use. History of Any Multi-Drug Resistant Organisms: MRSA Year Discovered:: 07/05/21 MDRO Source:: Left Ankle Past Surgical History: Heart Catheterization With Stent, Joint Replacement Additional Past Surgical History / Comment(s): Stent to right leg, vein graft right leg, right femoral bypass, stents to left leg, right hip replacement. Past Anesthesia/Blood Transfusion Reactions: No Reported Reaction Date of Last Stent Placement:: Unknown Past Psychological History: Anxiety Smoking Status: Current every day smoker Past Alcohol Use History: Occasional Past Drug Use History: None Reported - Past Family History Mother Family Medical History: Diabetes Mellitus, Hypertension Additional Family Medical History / Comment(s): Family history of varicose veins. Father Family Medical History: CVA/TIA, Myocardial Infarction ([place]) Medications and Allergies Home Medications Medication Instructions Recorded Confirmed Type No Known Home Medications 06/09/24 06/09/24 History Allergies Allergy/AdvReac Type Severity Reaction Status Date / Time No Known Allergies Allergy Verified 06/09/24 18:22 Surgical - Exam Vital Signs Temp Pulse Resp BP Pulse Ox 97.4 F L 92 16 146/91 97 06/09/24 17:00 06/09/24 17:00 06/09/24 17:00 06/09/24 17:00 06/09/24 17:00 General appearance: The patient is alert, oriented, appears in no acute distress. HET: Head is normocephalic and atraumatic. Pupils are equal and reactive. Neck: Supple. Heart: Regular. Lungs: Equal expansion, normal respiratory effort. Abdomen: Soft, nontender, nondistended. Extremities: Normal skin color and turgor. Lower extremities with varicose veins, feet cool to the touch. Sensorimotor intact. Palpable bilateral femoral pulses. Monophasic popliteal Doppler signals. Unable to obtain PT or DP Doppler signals bilateral lower extremities. Neurological: No focal deficits. Strength and sensation are grossly intact. Results - Labs 06/10/24 07:03 06/10/24 07:03 Abnormal Lab Results - Last 24 Hours (Table) 06/09/24 06/09/24 06/10/24 Range/Units 18:25 18:25 07:03 WBC 10.09 H (4.50-10.00) 10*3/uL Immature Gran # 0.05 H (0.00-0.04) 10*3/uL Neutrophils # 8.25 H (1.80-7.70) 10*3/uL Eosinophils # 0.39 H (0.04-0.35) 10*3/uL Sodium 134 L (137-145) mmol/L Potassium 5.4 H (3.5-5.1) mmol/L Creatinine 1.46 H (0.66-1.25) mg/dL 06/10/24 Range/Units 07:03 WBC (4.50-10.00) 10*3/uL Immature Gran # (0.00-0.04) 10*3/uL Neutrophils # (1.80-7.70) 10*3/uL Eosinophils # (0.04-0.35) 10*3/uL Sodium 135 L (137-145) mmol/L Potassium (3.5-5.1) mmol/L Creatinine (0.66-1.25) mg/dL Diabetes panel 06/09/24 06/10/24 Range/Units 18: 07:03 Sodium 134 L 135 L (137-145) mmol/L Potassium 5.4 H 4.2 (3.5-5.1) mmol/L Chloride 101 102 (98-107) mmol/L Carbon Dioxide 23 22 (22-30) mmol/L BUN 20 19 (9-20) mg/dL Creatinine 1.46 H 1.18 (0.66-1.25) mg/dL Glucose 96 88 (74-99) mg/dL Calcium 9.7 9.2 (8.4-10.2) mg/dL AST 37 30 (17-59) U/L ALT 25 21 (4-49) U/L Alkaline Phosphatase 82 82 (38-126) U/L Total Protein 7.6 6.7 (6.3-8.2) g/dL Albumin 4.5 3.8 (3.5-5.0) g/dL Calcium panel 06/09/24 06/10/24 Range/Units 18: 07:03 Calcium 9.7 9.2 (8.4-10.2) mg/dL Albumin 4.5 3.8 (3.5-5.0) g/dL Pituitary panel 06/09/24 06/10/24 Range/Units 18:25 07:03 Sodium 134 L 135 L (137-145) mmol/L Potassium 5.4 H 4.2 (3.5-5.1) mmol/L Chloride 101 102 (98-107) mmol/L Carbon Dioxide 23 22 (22-30) mmol/L BUN 20 19 (9-20) mg/dL Creatinine 1.46 H 1.18 (0.66-1.25) mg/dL Glucose 96 88 (74-99) mg/dL Calcium 9.7 9.2 (8.4-10.2) mg/dL Adrenal panel 06/09/24 06/10/24 Range/Units 18:25 07:03 Sodium 134 L 135 L (137-145) mmol/L Potassium 5.4 H 4.2 (3.5-5.1) mmol/L Chloride 101 102 (98-107) mmol/L Carbon Dioxide 23 22 (22-30) mmol/L BUN 20 19 (9-20) mg/dL Creatinine 1.46 H 1.18 (0.66-1.25) mg/dL Glucose 96 88 (74-99) mg/dL Calcium 9.7 9.2 (8.4-10.2) mg/dL Total Bilirubin 0.7 0.6 (0.2-1.3) mg/dL AST 37 30 (17-59) U/L ALT 25 21 (4-49) U/L Alkaline Phosphatase 82 82 (38-126) U/L Total Protein 7.6 6.7 (6.3-8.2) g/dL Albumin 4.5 3.8 (3.5-5.0) g/dL - Imaging Comments: CT angiogram lower extremities bilateral impression reads New occlusion of anterior right common femoral artery graft in the subcutaneous tissues from its origin to its insertion in the lower leg which is poorly visualized due to lack of contrast in this vessel. Similar occlusion of the left superficial femoral artery stent graft extending from its origin to the left popliteal artery with reconstitution. The left posterior tibial artery crosses the ankle the anterior tibial artery and left does not well-appreciated crossing the ankle. Consider Surveillance Analyst angiography for further evaluation. Similar occlusion of the right SFA extending through a distal stent graft with reconstitution of the anterior tibial artery. Posterior tibial artery is not well-appreciated. Consider Surveillance Analyst angiography for further evaluation. Infrarenal abdominal aortic aneurysm dilation up to 31 mm, stable. Assessment and Plan Assessment: 1. Occlusion of right common femoral artery graft 2. Bilateral lower extremity peripheral arterial disease with multiple revascularizations 3. Medical noncompliance and noncompliance with medications, patient has not been taking any home meds since end february 4. Diabetes mellitus 5. Coronary artery disease status post stents, EF 35 to 40% 6. Tobacco use and dependence 7. History of hypertension and hyperlipidemia 8. Lower extremity varicose veins Plan: 1. Keep n.p.o. 2. Continue heparin drip for now 3. Will plan for lower extremity angiogram today 4. Echocardiogram ordered by cardiology 5. Discussed with patient importance of medical compliance and outpatient follow-up as well as medication compliance 6. Recommend complete smoking cessation, patient states using nicotine patch but still smoking 7. Further recommendations forthcoming based on clinical course Thank you for this consultation, we will continue to follow. The impression and plan of care has been dictated as directed. Dr. Lemus I performed a history and examination of this patient, discussed the same with the dictator. I agree with the dictator's note ,documented as a scribe. Any additional findings or plans will be noted.
[2024-06-10] MEDS: CLOPIDOGREL 75 MG TAB PO SCH (11:10)
[2024-06-10] MEDS: METOPROLOL TARTRATE 25 MG TAB PO SCH (11:10)
[2024-06-10] MEDS: ASPIRIN 81 MG PO SCH (11:10)
[2024-06-10] MEDS: amLODIPine 10 MG TAB PO SCH (11:10)
--- NOTE | 2024-06-10 11:20 | XR ---
EXAMINATION TYPE: XR chest 2V DATE OF EXAM: 06/10/2024 11:02 AM COMPARISON: Chest radiographs from 02/17/2024 CLINICAL INDICATION: Male, 64 years old with history of Pneumonia; [facility] TECHNIQUE: XR chest 2V Frontal and lateral views of the chest. FINDINGS: Lungs/Pleura: There is no evidence of pleural effusion, focal consolidation, or pneumothorax. Pulmonary vascularity: Unremarkable. Heart/mediastinum: Cardiomediastinal silhouette is unremarkable. Musculoskeletal: No acute osseous pathology. IMPRESSION: No acute cardiopulmonary disease/process. [facility], , 06/10/2024 11:18 AM
--- NOTE | 2024-06-10 12:01 | P.HPIM ---
History of Present Illness 64-year-old male with history of peripheral vascular disease varicose veins DVT in the past atrial fibrillation came in with complaints of bilateral lower extremity pain significant in the left lower extremity multiple revascularizatio n procedures in the past continues to smoke, ran out of his medication 2 months ago has not been taking any of his medications. Patient is supposed to be on Xarelto. Patient has not been taking any of his home medications CT angio of the left bilateral lower extremities showed new occlusion of the anterior right common femoral artery graft similar occlusion of left superficial femoral artery graft from its origin to the left popliteal artery and there is also occlusion of right superficial femoral artery extending throughout the distal stent grafts. Vascular surgery was consulted patient was started on IV heparin. REVIEW OF SYSTEMS: All other systems are negative except those mentioned in the HPI PHYSICAL EXAMINATION: GENERAL: The patient is alert and oriented x3, not in any acute distress. Well developed, well nourished. HEENT: Pupils are round and equally reacting to light. EOMI. No scleral icterus. No conjunctival pallor. Normocephalic, atraumatic. No pharyngeal erythema. No thyromegaly. CARDIOVASCULAR: S1 and S2 present. No murmurs, rubs, or gallops. PULMONARY: Chest is clear to auscultation, no wheezing or crackles. ABDOMEN: Soft, nontender, nondistended, normoactive bowel sounds. No palpable organomegaly. MUSCULOSKELETAL: No joint swelling or deformity. EXTREMITIES: No cyanosis, clubbing, or pedal edema. Significantly decreased pedal pulses in bilateral lower extremities significant in the left lower extremity NEUROLOGICAL: Gross neurological examination did not reveal any focal deficits. SKIN: No rashes. Assessment and plan -Peripheral artery disease occlusion of the right common femoral artery graft and multiple other occlusions as mentioned above: Continue with IV heparin patient probably will need angiogram vascular surgery was consulted - Type 2 diabetes mellitus - Coronary disease with stents in the past - Congestive heart failure chronic systolic function EF of around 35 to 40% although patient has not been taking any of his medications - Varicose veins in bilateral lower extremities -Depression for which patient is supposed to be on Prozac which he has not been taking Patient will be continued on heparin drip for now will resume on the medications he is supposed to be on at home. Continue nicotine use: Counseling was provided DVT prophylaxis: On IV heparin at this time Past Medical History Past Medical History: Atrial Fibrillation, Diabetes Mellitus, Deep Vein Thrombosis (DVT), Hyperlipidemia, Hypertension, Prostate Disorder, Sleep Apnea/CPAP/BIPAP, Vascular Disorder Additional Past Medical History / Comment(s): Hx "mini heart attack/scarring long time ago". Cardiomyopathy. PAD. Varicose veins. Enlarged prostate. No CPAP use. History of Any Multi-Drug Resistant Organisms: MRSA Date of last positivie culture/infection: 07/05/21 MDRO Source:: Left Ankle Past Surgical History: Heart Catheterization With Stent, Joint Replacement Additional Past Surgical History / Comment(s): Stent to right leg, vein graft right leg, right femoral bypass, stents to left leg, right hip replacement. Past Anesthesia/Blood Transfusion Reactions: No Reported Reaction Date of Last Stent Placement:: Unknown Past Psychological History: Anxiety Smoking Status: Current every day smoker Past Alcohol Use History: Occasional Past Drug Use History: None Reported - Past Family History Mother Family Medical History: Diabetes Mellitus, Hypertension Additional Family Medical History / Comment(s): Family history of varicose veins. Father Family Medical History: CVA/TIA, Myocardial Infarction (SD) Medications and Allergies Home Medications Medication Instructions Recorded Confirmed Type No Known Home Medications 06/09/24 06/09/24 History Allergies Allergy/AdvReac Type Severity Reaction Status Date / Time No Known Allergies Allergy Verified 06/09/24 18:22 Physical Exam Vitals: Vital Signs Temp Pulse Pulse Resp BP BP Pulse Ox 06/10/24 11:07 71 18 160/108 95 06/10/24 08:00 98.1 F 77 18 153/88 96 06/10/24 06:19 71 16 160/92 95 06/10/24 03:53 71 18 156/94 95 06/10/24 01:31 78 18 134/74 99 06/09/24 22:53 84 18 165/84 96 06/09/24 21:41 98.3 F 88 18 186/88 95 06/09/24 21:17 85 18 168/122 95 06/09/24 20:12 94 18 192/130 94 L 06/09/24 17:00 97.4 F L 92 16 146/91 97 Intake and Output 06/09/24 06/10/24 06/10/24 22:59 06:59 14:59 Intake Total 63.383 Balance 63.383 Intake: Intake, IV Titration 63.383 Amount Heparin Sod,Pork in 0.45% 63.383 NaCl 25,000 unit In 0.45 % NaCl 1 250ml.bag @ 12 UNITS/KG/HR 9.253 mls/hr IV .Q24H [facility] Rx#: [id number] Other: Weight 77.111 kg Results CBC & Chem 7: 06/10/24 07:03 06/10/24 07:03 Labs: Abnormal Lab Results - Last 24 Hours (Table) 06/09/24 06/09/24 06/10/24 Range/Units 18:25 18:25 07:03 WBC 10.09 H (4.50-10.00) 10*3/uL Immature Gran # 0.05 H (0.00-0.04) 10*3/uL Neutrophils # 8.25 H (1.80-7.70) 10*3/uL Eosinophils # 0.39 H (0.04-0.35) 10*3/uL APTT (22.0-30.0) sec Sodium 134 L (137-145) mmol/L Potassium 5.4 H (3.5-5.1) mmol/L Creatinine 1.46 H (0.66-1.25) mg/dL 06/10/24 06/10/24 Range/Units 07:03 10:25 WBC (4.50-10.00) 10*3/uL Immature Gran # (0.00-0.04) 10*3/uL Neutrophils # (1.80-7.70) 10*3/uL Eosinophils # (0.04-0.35) 10*3/uL APTT 48.7 H (22.0-30.0) sec Sodium 135 L (137-145) mmol/L Potassium (3.5-5.1) mmol/L Creatinine (0.66-1.25) mg/dL
[2024-06-10] MEDS: SODIUM CHLORIDE 0.9% 250 ML IV ONE ×2 (12:20)
[2024-06-10] MEDS: LIDOCAINE 1% INJ 10MG/ML (20 ML MDV) SQ ONE (12:22)
[2024-06-10] MEDS: fentaNYL (PF) 50 MCG/ML 2 ML AMP IVP ONE (12:22)
[2024-06-10] MEDS: MIDAZOLAM 2 MG/2 ML VIAL IVP ONE (12:22)
[2024-06-10] MEDS: HEPARIN SODIUM 1,000 UN/ML (10ML VL) IV ONE (12:30)
--- NOTE | 2024-06-10 12:59 | P.OP ---
Date of Procedure: 06/10/24 Preoperative Diagnosis: Acute thrombosis right fem-tib bypass Acute critical limb ischemia of the right lower extremity Postoperative Diagnosis: Same Procedure(s) Performed: Ultrasound-guided left common femoral artery access Selective right lower extremity angiogram third order Initiation of thrombolysis and placement of thrombolytic catheter Conscious sedation x 27 minutes Anesthesia: local Surgeon: Chris Lemus Estimated Blood Loss (ml): 5 Pathology: none sent Condition: stable Disposition: ICU Indications for Procedure: 64-year-old gentleman with history of peripheral arterial disease, previous right femoral anterior tibial artery bypass with one-vessel runoff presented to the emergency department with acute worsening pain in the right lower extremity. Patient states that his bypass stopped working roughly 24 to 48 hours ago and his pain began to worsen at the calf overnight. He had a CTA with runoff demonstrating thrombosis of his right femoral-tibial bypass with flow noted in the proximal aspect. He presents for angiogram and placement of thrombolytic c atheter. Operative Findings: Thrombosed right femoral-tibial bypass with reconstitution below the knee one- vessel runoff to the ankle Description of Procedure: After written and informed consent was obtained with the patient all risk benefits and complications were described the patient was brought to the Ampoule Examiner and laid in a supine position. The area of the groins were prepped and draped in usual sterile fashion. Timeout was performed normal fashion. Patient was administered sedation and was monitored with a registered nurse and continu ous pulse ox and EKG monitoring. Utilizing ultrasound the left common femoral artery was located and shown to be patent with minimal calcific disease throughout. Under ultrasound guidance the artery was accessed with a micro access needle. A wire was placed and utilizing Seldinger technique a 5 Tu[place] sheath was placed in normal fashion. 035 Glidewire advantage was then placed into the aorta followed by an RBI catheter and the right common iliac artery was accessed in an up and over fashion. Wire was then placed down towards the common femoral artery on the right followed by the catheter and selective angiogram was obtained. On angiogram it was noted that the profunda was patent as well as the common femoral artery and the bypass at the takeoff. Just past the takeoff there was thrombus noted and occlusion extending throughout the entirety of the bypass. Reconstitution was noted below the knee. At that time the 5 Tu[place] short sheath was removed and replaced with a long 5 [place] sheath in an up and over fashion. Utilizing a quick cross catheter the bypass was entered and wire was placed all the way across into the anterior tibial artery followed by the quick cross catheter. Distal angiogram was obtained demonstrating patency through out the distal anterior tibial artery with runoff to the ankle. Catheter was then removed and a 50 cm infusion catheter was placed at the proximal aspect of the bypass into the middle of the bypass due to length it was unable to be placed across the entire lesion. The sheath was then sutured in place. tPA was then initiated and will infuse overnight and reevaluation tomorrow. Patient was stable at the conclusion of the procedure and will be sent to ICU for recovery.
[2024-06-10] MEDS ORDERED: HYDROcodone/APAP 5-325MG 1 EACH TAB PO PRN (13:00)
[2024-06-10] MEDS: ALTEPLASE 2 MG VIAL (CATHFLO) IA ONE (13:04)
[2024-06-10] MEDS: HEPARIN SODIUM,PORCINE (1 ML) 2,500 UNIT in SODIUM CHLORIDE 0.9% 250 ML IRRIGATION ONE (13:05)
[2024-06-10] MEDS: ALTEPLASE 10 MG in SODIUM CHLORIDE 0.9% 90 ML IA ONE (13:05)
--- NOTE | 2024-06-10 13:12 | IR ---
EXAMINATION TYPE: IR transcath infusion therapy DATE OF EXAM: 06/10/2024 1:00 PM COMPARISON: Pre Operative Images if available both CT/MRI or plain film CLINICAL INDICATION: Male, 64 years old with history of right leg bypass thrombosed, 5.5min fluoro, 1 7.2Gycm2; TECHNIQUE: IR transcath infusion therapy, multiple fluoroscopic images provided for procedure. DAP: 17.2 mGym2 Gycm2 uGym2 cGycm2 or equivalent. FINDINGS: IMPRESSION: 1. Report was generated for administrative purposes only. 2. Please see the operative/procedural note for further details. [facility], , 06/10/2024 1:10 PM
[2024-06-10] MEDS: IOPAMIDOL-300 100ML BTL INJ ONE (13:13)
--- NOTE | 2024-06-10 13:46 | P.CRDCN ---
History of Present Illness Consult date: 06/10/24 Reason for Consult (text): PAD History of present illness: This is a 64-year-old male patient of Dr. Shaikh with past medical history of paroxysmal atrial fibrillation, PAD status post prior right lower extremity intervention, right acute limb ischemia and venous insufficiency, polycythemia, tobacco use and dependence, prior alcohol abuse, hypertension, diabetes. We have been asked to evaluate the patient for PAD. Patient had a hospitalization in January,, and found to have a left SFA occluded stent underwent tPA on 02/16 with SFA stent placement on 02/17. Patient was readmitted in February for occlusion of the stented SFA, occlusion of the upper popliteal artery with reconstitution as well as severe stenosis of the left anterior iliac artery. Patient had a follow-up visit with Dr. Shaikh on 04/15/2024. He had an ultra sound arterial lower extremity done on 04/09/2024 that was stable. Patient had no lower extremity pain at the time and no chest pain or shortness of breath. Unfortunately, patient has not been taking his medications since February. Blood pressure 160/92, heart rate 71, pulse ox 95% on room air. Patient is seen today in the emergency center waiting for a bed on the cardiac stepdown unit. Patient has been started on a heparin drip. Patient has also been seen by vascular surgery and is scheduled for right lower extremity angiogram. -EKG: Sinus rhythm, right bundle branch block, nonspecific ST changes. -Chest x-ray: No acute process. -CT angiogram of bilateral lower extremities: No occlusion of the anterior right common femoral artery graft in the subcutaneous tissues from its origin to its insertion in the lower leg with poorly visualized due to lack of contrast. Similar occlusion on the left superficial femoral artery stent graft from its origin to the left popliteal artery with reconstitution. Left posterior tibial artery crosses the ankle anterior tibial artery and left does not well appreciated across the ankle. Similar occlusion of the right superficial femoral artery from the distal stent grafts with reconstitution of the anterior tibial artery. The posterior tibial artery is not well appreciated. Infrarenal abdominal aortic aneurysm measuring 31 mm. Stable. -Laboratory studies: CBC unremarkable. Initial potassium 5.4 now 4.2, creatinine initially 1.46 and now 1.18. Troponin negative x 1. -Home cardiac medications: None -Lexiscan stress test performed 05/15/2022 at [facility] revealed no evidence of reversible ischemia. -Echocardiogram performed 09/10/2023 at [facility] revealed EF 60%. Review Of Systems: At the time of my exam: CONSTITUTIONAL: Denies fever or chills. Reports bilateral lower extremity pain. HEENT: Denies blurred vision, vision changes, or eye pain. Denies hemoptysis CARDIOVASCULAR: Denies chest pain. Denies orthopnea. Denies PND. Denies palpitations RESPIRATORY: Denies shortness of breath. GASTROINTESTINAL: Denies abdominal pain. Denies nausea or vomiting. HEMATOLOGIC: Denies bleeding disorders. GENITOURINARY: Denies any blood in urine. SKIN: Denies puritis. Denies rash. Physical examination: Gen: This is 64-year-old male in no respiratory distress. VS: reviewed HEENT: Head is atraumatic, normocephalic. Pupils equal, round. Sclerae is anicteric. NECK: Supple. No JVD. LUNGS: Clear to auscultation. No wheezes or rhonchi. No intercostal retractions. HEART: Regular rate and rhythm. No murmur. ABDOMEN: Soft No tenderness. EXTREMITIES: No pedal edema. No calf tenderness. NEUROLOGICAL: Patient is awake, alert and oriented x3. Assessment: Occlusion of right common femoral artery graft Bilateral lower extremity peripheral artery disease with multiple revascularizations Right bundle branch block with nonspecific ST changes, chronic Cardiomyopathy with EF of 35 to 45% Paroxysmal atrial fibrillation History of DVT Hyperlipidemia Hypertension Diabetes mellitus type II Tobacco use and dependence BPH Sleep apnea Acute kidney injury, improved Plan: Start patient on amlodipine 10 mg daily, aspirin 81 mg daily, atorvastatin 40 mg at bedtime, Plavix 75 mg daily, Lopressor 25 mg twice daily Obtain 2-D echocardiogram and Doppler study to assess cardiac structure and function Further recommendations to follow based upon clinical course Thank you kindly for this consultation. Nurse practitioner note has been reviewed, I agree with documented findings and plan of care. Patient was seen and examined. Past Medical History Past Medical History: Atrial Fibrillation, Diabetes Mellitus, Deep Vein Thrombosis (DVT), Hyperlipidemia, Hypertension, Prostate Disorder, Sleep Apnea/CPAP/BIPAP, Vascular Disorder Additional Past Medical History / Comment(s): Hx "mini heart attack/scarring long time ago". Cardiomyopathy. PAD. Varicose veins. Enlarged prostate. No CPAP use. History of Any Multi-Drug Resistant Organisms: MRSA Date of last positivie culture/infection: 07/05/21 MDRO Source:: Left Ankle Past Surgical History: Heart Catheterization With Stent, Joint Replacement Additional Past Surgical History / Comment(s): Stent to right leg, vein graft right leg, right femoral bypass, stents to left leg, right hip replacement. Past Anesthesia/Blood Transfusion Reactions: No Reported Reaction Date of Last Stent Placement:: Unknown Past Psychological History: Anxiety Smoking Status: Current every day smoker Past Alcohol Use History: Occasional Past Drug Use History: None Reported - Past Family History Mother Family Medical History: Diabetes Mellitus, Hypertension Additional Family Medical History / Comment(s): Family history of varicose veins. Father Family Medical History: CVA/TIA, Myocardial Infarction (CT) Medications and Allergies Home Medications Medication Instructions Recorded Confirmed Type No Known Home Medications 06/09/24 06/09/24 History Allergies Allergy/AdvReac Type Severity Reaction Status Date / Time No Known Allergies Allergy Verified 06/09/24 18:22 Physical Exam Vitals: Vital Signs Temp Pulse Pulse Resp BP BP Pulse Ox 06/10/24 08:00 98.1 F 77 18 153/88 96 06/10/24 06:19 71 16 160/92 95 06/10/24 03:53 71 18 156/94 95 06/10/24 01:31 78 18 134/74 99 06/09/24 22:53 84 18 165/84 96 06/09/24 21:41 98.3 F 88 18 186/88 95 06/09/24 21:17 85 18 168/122 95 06/09/24 20:12 94 18 192/130 94 L 06/09/24 17:00 97.4 F L 92 16 146/91 97 Intake and Output 06/09/24 06/10/24 06/10/24 22:59 06:59 14:59 Intake Total 63.383 Balance 63.383 Intake: Intake, IV Titration 63.383 Amount Heparin Sod,Pork in 0.45% 63.383 NaCl 25,000 unit In 0.45 % NaCl 1 250ml.bag @ 12 UNITS/KG/HR 9.253 mls/hr IV .Q24H [facility] Rx#: [id number] Other: Weight 77.111 kg Results 06/10/24 07:03 06/10/24 07:03 Cardiac Enzymes 06/09/24 06/09/24 06/10/24 Range/Units 18: 18: 07:03 AST 37 30 (17-59) U/L Troponin I 0.012 (0.000-0.034) ng/mL Coagulation 06/09/24 06/10/24 Range/Units 18: 03:20 PT 11.0 (10.0-12.5) sec APTT 23.2 29.3 (22.0-30.0) sec CBC 06/09/24 06/10/24 Range/Units : 07:03 WBC 10.09 H 8.88 (4.50-10.00) 10*3/uL RBC 5.01 4.92 (4.40-5.60) 10*6/uL Hgb 14.9 14.5 (13.0-17.0) g/dL Hct 44.5 43.6 (39.6-50.0) % Plt Count 215 210 (140-440) 10*3/uL Comprehensive Metabolic Panel 06/09/24 06/10/24 Range/Units : 07:03 Sodium 134 L 135 L (137-145) mmol/L Potassium 5.4 H 4.2 (3.5-5.1) mmol/L Chloride 101 102 (98-107) mmol/L Carbon Dioxide 23 22 (22-30) mmol/L BUN 20 19 (9-20) mg/dL Creatinine 1.46 H 1.18 (0.66-1.25) mg/dL Glucose 96 88 (74-99) mg/dL Calcium 9.7 9.2 (8.4-10.2) mg/dL AST 37 30 (17-59) U/L ALT 25 21 (4-49) U/L Alkaline Phosphatase 82 82 (38-126) U/L Total Protein 7.6 6.7 (6.3-8.2) g/dL Albumin 4.5 3.8 (3.5-5.0) g/dL Current Medications Generic Name Dose Route Start Last Admin Trade Name Freq PRN Reason Stop Dose Admin Acetaminophen 650 mg 06/09/24 21:24 Acetaminophen Tab 325 Mg Tab PO Q6HR PRN Mild Pain or Fever > 100.5 Heparin Sodium (Porcine) 0 unit 06/09/24 21:12 06/10/24 04:29 Heparin Sodium 1,000 Un/Ml (10ml Vl) IV 3,855.55 unit PER PROTOCOL PRN Administration Low PTT Protocol Hydromorphone HCl 0.5 mg 06/09/24 21:24 06/10/24 09:00 Hydromorphone 0.5 Mg/0.5 Ml Syringe IVP 0.5 mg Q3HR PRN Administration Moderate Pain (Scale 4 to 6) Heparin Sodium/Sodium Chloride 250 mls @ 9.253 mls/hr 06/09/24 21:15 06/10/24 04:29 25,000 unit/ Sodium Chloride IV 15 units/kg/hr .Q24H IV[facility]TE 11.567 mls/hr Titration Protocol 12 UNITS/KG/HR Naloxone HCl 0.2 mg 06/09/24 21:24 Naloxone 0.4 Mg/Ml 1 Ml Vial IV Q2M PRN Opioid Reversal Intake and Output 06/09/24 06/10/24 06/10/24 22:59 06:59 14:59 Intake Total 63.383 Balance 63.383 Intake: Intake, IV Titration 63.383 Amount Heparin Sod,Pork in 0.45% 63.383 NaCl 25,000 unit In 0.45 % NaCl 1 250ml.bag @ 12 UNITS/KG/HR 9.253 mls/hr IV .Q24H [facility] Rx#: [id number] Other: Weight 77.111 kg 06/10/24 07:03 06/10/24 07:03
[2024-06-10 15:40] LABS: Glucose,Whole Blood 86 mg/dL (70-110)
[2024-06-10] MEDS: ATORVASTATIN 40 MG TAB PO SCH (19:58)
[2024-06-10 20:35] LABS: Glucose,Whole Blood 105 mg/dL (70-110)
[2024-06-11 06:08] LABS: HGB 14.5 g/dL (13.0-17.0); MCH 29.1 pg (27.0-32.0); MCV 88.4 fL (80.0-97.0); Mean Platelet Volume 9.6 fL (9.5-12.2); Platelet Count 180 10*3/uL (140-440); RBC 4.98 10*6/uL (4.40-5.60); WBC 10.14 10*3/uL (4.50-10.00)
[2024-06-11 06:29] LABS: Glucose,Whole Blood 113 mg/dL (70-110)
[2024-06-11 06:30] LABS: African American GFR (CKD) >90 (>60 ml/min/1.73 sqM); Anion Gap 9 mmol/L; Blood Urea Nitrogen 15 mg/dL (9-20); Calcium 9.4 mg/dL (8.4-10.2); Carbon Dioxide 22 mmol/L (22-30); Chloride 103 mmol/L (98-107); Glucose 92 mg/dL (74-99); Magnesium 1.9 mg/dL (1.6-2.3); Non-African American GFR(CKD) >90 (>60 ml/min/1.73 sqM); Potassium 4.3 mmol/L (3.5-5.1); Sodium 134 mmol/L (137-145)
--- NOTE | 2024-06-11 07:16 | CA ---
Transthoracic Echo Report Name: Mc Dangelo Age: 64 Gender: M : 1960 Exam Date: 06/10/2024 11:13 Exam Location: [facility] Ht (in): 70 Wt (lb): 170 Ordering Physician: Linette Clements Attending/Referring Phys: [id number], Starr Barge Captain Jame Platt RDCS Procedure CPT: Indications: LVF Cardiac Hx: Technical Quality: Good Contrast 1: Definity Total Dose (mL): 2 Contrast 2: Total Dose (mL): MEASUREMENTS (Male / Female) Normal Values 2D ECHO LV Diastolic Diameter PLAX 5.0 cm 4.2 - 5.9 / 3.9 - 5.3 cm LV Systolic Diameter PLAX 3.4 cm IVS Diastolic Thickness 1.1 cm 0.6 - 1.0 / 0.6 - 0.9 cm LVPW Diastolic Thickness 1.0 cm 0.6 - 1.0 / 0.6 - 0.9 cm LV Relative Wall Thickness 0.4 RV Internal Dim ED PLAX 3.5 cm LVOT Diameter 2.1 cm LA Systolic Diameter LX 3.7 cm 3.0 - 4.0 / 2.7 - 3.8 cm LV Diastolic Volume MOD BP 142.5 cm??? 67 - 155 / 56 - 104 cm??? LV Systolic Volume MOD BP 65.4 cm??? - / 19 - 49 cm??? LV Ejection Fraction MOD BP 54.1 % >= 55 % LV Cardiac Index MOD BP 2991.5 cm???/min???m??? LV Diastolic Volume MOD 4C 126.6 cm??? LV Systolic Volume MOD 4C 58.9 cm??? LV Ejection Fraction MOD 4C 53.5 % LV Cardiac Index MOD 4C 2628.3 cm???/min???m??? LV Diastolic Length 4C 8.9 cm LV Systolic Length 4C 7.9 cm LV Diastolic Volume MOD 2C 145.8 cm??? LV Systolic Volume MOD 2C 65.1 cm??? LV Ejection Fraction MOD 2C 55.3 % LV Cardiac Index MOD 2C 3133.2 cm???/min???m??? LV Diastolic Length 2C 9.8 cm LV Systolic Length 2C 8.9 cm LA Volume 53.7 cm??? 18 - 58 / 22 - 52 cm??? LA Volume Index 27.4 cm???/m??? 16 - 28 cm???/m??? DOPPLER MV Area PHT 3.2 cm??? Mitral E Point Velocity 34.4 cm/s Mitral A Point Velocity 54.4 cm/s Mitral E to A Ratio 0.6 MV Deceleration Time 240.0 ms TR Peak Velocity 234.1 cm/s TR Peak Gradient 21.9 mmHg Right Atrial Pressure 5.0 mmHg Pulmonary Artery Systolic Pressu 26.9 mmHg Right Ventricular Systolic Press 26.9 mmHg FINDINGS Left Ventricle Left ventricular ejection fraction is estimated at 50-55%. Anteroapical and anterolateral apical mild hypokinesis. Left ventricular cavity size normal. Mildly increased septal wall thickness. Right Ventricle Normal right ventricular size and function. Right ventricular systolic pressure within normal limits. Right Atrium Normal right atrial size. Left Atrium Normal left atrial size. Mitral Valve Mitral annular calcification. No mitral stenosis. Mild mitral regurgitation. Aortic Valve Trileaflet aortic valve. Thickened aortic valve without stenosis.aortic valve sclerosis. Trace to mild aortic regurgitation. Tricuspid Valve Structurally normal tricuspid valve. No tricuspid stenosis. Mild tricuspid regurgitation. Pulmonic Valve No pulmonic stenosis. Trace pulmonic regurgitation.pulmonic valve not well visualized. Pericardium No pericardial effusion. Aorta Normal size aortic root and proximal ascending aorta. CONCLUSIONS 1. Left ventricular systolic function borderline normal with segmental wall motion abnormality 2. Mild mitral and tricuspid regurgitation 3. Trace to mild aortic regurgitation Definity ECHO contrast used for improved visualization of the endocardial borders (inadequate visualization of two or more contiguous segments). Previewed by: Dr. Maura Batista MD (Electronically Signed) Final Date: 11 June 2024 07:15
--- NOTE | 2024-06-11 08:08 | P.PN ---
Progress Note - Text Progress Note Date: 06/11/24 Patient seen and examined this morning. tPA currently infusing. Patient states improvement in pain in his Down his right lower extremity. Right lower extremity warm to touch, good capillary refill, sensorimotor intact. Palpable DP pulse with positive PT Doppler signal. Left groin access site with catheters in place, with dressing intact with small amount of oozing. Plan to take patient back for recheck angiogram later this morning. The impression and plan of care has been dictated as directed. Dr. Nuno I performed a history and examination of this patient, discussed the same with the dictator. I agree with the dictator's note ,documented as a scribe. Any additional findings or plans will be noted.
[2024-06-11] MEDS: FLUoxetine HCL 20 MG CAP PO SCH (08:39)
[2024-06-11] MEDS ORDERED: ONDANSETRON 4 MG/2 ML VIAL IVP PRN (09:42)
[2024-06-11] MEDS: LIDOCAINE 1% INJ 10MG/ML (20 ML MDV) SQ ONE (10:19)
[2024-06-11] MEDS: MIDAZOLAM 2 MG/2 ML VIAL IVP ONE (10:20)
[2024-06-11] MEDS: fentaNYL (PF) 50 MCG/ML 2 ML AMP IVP ONE (10:21)
[2024-06-11] MEDS: IV FLUID CONTINUATION 400 ML IV ONE (10:22)
[2024-06-11] MEDS: IOPAMIDOL-370 100ML BTL INJ ONE (10:33)
--- NOTE | 2024-06-11 10:48 | P.OP ---
Date of Procedure: 06/11/24 Description of Procedure: Preoperative diagnosis: Acute on chronic bilateral lower extremity ischemia, Postoperative diagnosis: Same Procedure: Right lower extremity angiogram via existing catheter Left lower extremity angiogram via existing sheath 18 minutes moderate conscious sedation with personal monitoring certified RN administration Surgeon: Karolina Nuno D.O. EBL: Less than 10 cc IV fluids: See records Urine output: Not measured Drains: None Complications: None immediately apparent Condition: Stable to recovery Operative indication and findings: Patient is a 64-year-old male with significant peripheral vascular disease and multiple previous interventions for his arterial insufficiency. He came in with acute on chronic lower extremity pain and discomfort still motor sensory intact but worse on his right side with evidence of occlusion of his bypass graft as well as the SFA stents through the left lower extremity. He was getting low on his medications and had not had any refills written for him by his primary therefore he was trying to space out the medications he was taking. Plan for today is a recheck from previous catheters. Risk and benefits were discussed. He similar symptoms willing to proceed. Procedure in detail: Patient was brought back to the special suite placed in supine position. The bilateral groins were prepped and draped in usual sterile fashion. A preprocedural timeout was performed, all parties were in agreement. Via the existing catheter, wire was placed. An angiogram was performed of the right lower extremity showing a widely patent common femoral, bypass, anterior tibial vessel all the way to the ankle without any evidence of significant narr owing. He does have a palpable dorsalis pedis pulse as well. At this point the catheters and wires were withdrawn over the wire and the sheath was left in place in the common femoral on the left. A left iliofemoral angiogram was performed showing no significant disease with adequate common femoral artery cannulation. There is occlusion of the superficial femoral artery with reconstitution of the popliteal artery behind the knee. There is a diminutive but three-vessel appearance below the knee, the anterior tibial is much more diminutive when compared to the tibioperoneal trunk and PT/peroneal vessel. No obvious areas of occlusions at this area. The sheath was exchanged for a 6 [place]amanian short sheath and a Vascade closure device was utilized in standard fashion with manual pressure for hemostasis and a pressure dressing. The patient tolerated the procedure well.
[2024-06-11 11:11] LABS: Glucose,Whole Blood 100 mg/dL (70-110)
[2024-06-11] MEDS ORDERED: HEPARIN SODIUM 1,000 UN/ML (10ML VL) IV PRN (11:15)
--- NOTE | 2024-06-11 11:23 | IR ---
EXAMINATION TYPE: IR transcath infusion therapy Intraoperative/procedural fluoroscopic services were provided. CLINICAL INDICATION:Male, 64 years old with history of pvd, bypass graft TPA recheck, 1.5min fluoro; , PH FINDINGS: Total fluoroscopy time is 1.6 min. DAP: 3320.4 uGym2 Please see the operative/procedural note for further details. [facility], , 06/11/2024 11:21 AM
[2024-06-11 11:52] LABS: Basophils # (A) 0.03 10*3/uL (0.00-0.10); Basophils % (A) 0.3 %; Eosinophils # (A) 0.22 10*3/uL (0.04-0.35); Eosinophils % (A) 2.4 %; HCT 43.4 % (39.6-50.0); HGB 14.3 g/dL (13.0-17.0); Lymphocytes # (A) 0.91 10*3/uL (0.90-5.00); Lymphocytes % (A) 9.9 %; MCH 29.4 pg (27.0-32.0); MCHC 32.9 g/dL (32.0-37.0); MCV 89.1 fL (80.0-97.0); Mean Platelet Volume 9.3 fL (9.5-12.2); Monocytes # (A) 0.79 10*3/uL (0.20-1.00); Monocytes % (A) 8.6 %; Neutrophils # (A) 7.23 10*3/uL (1.80-7.70); Neutrophils % (A) 78.5 %; Platelet Count 170 10*3/uL (140-440); RBC 4.87 10*6/uL (4.40-5.60); RDW 15.9 % (11.5-14.5); WBC 9.21 10*3/uL (4.50-10.00)
[2024-06-11 12:11] LABS: INR 1.1 (<1.2); Prothrombin Time 12.3 sec (10.0-12.5)
[2024-06-11] MEDS: HEPARIN SOD,PORK IN 0.45% NACL 25,000 UNIT in 0.45% NACL 1 250ML.BAG IV SCH (12:15)
[2024-06-11] MEDS: PANTOPRAZOLE 40 MG TABLET PO SCH (12:28)
[2024-06-11 16:35] LABS: Glucose,Whole Blood 100 mg/dL (70-110)
[2024-06-11 20:15] LABS: Glucose,Whole Blood 110 mg/dL (70-110)
[2024-06-11] MEDS: APIXABAN 5 MG TAB PO SCH (20:26)
[2024-06-12 04:23] VITALS: RESP 18
[2024-06-12 05:58] LABS: Basophils # (A) 0.04 10*3/uL (0.00-0.10); Basophils % (A) 0.4 %; Eosinophils # (A) 0.44 10*3/uL (0.04-0.35); Eosinophils % (A) 4.8 %; HCT 43.3 % (39.6-50.0); HGB 14.6 g/dL (13.0-17.0); Lymphocytes % (A) 11.9 %; MCH 29.9 pg (27.0-32.0); MCHC 33.7 g/dL (32.0-37.0); MCV 88.7 fL (80.0-97.0); Mean Platelet Volume 10.3 fL (9.5-12.2); Monocytes # (A) 0.85 10*3/uL (0.20-1.00); Monocytes % (A) 9.2 %; Neutrophils # (A) 6.79 10*3/uL (1.80-7.70); Neutrophils % (A) 73.3 %; Platelet Count 202 10*3/uL (140-440); RBC 4.88 10*6/uL (4.40-5.60); RDW 15.9 % (11.5-14.5); WBC 9.26 10*3/uL (4.50-10.00)
[2024-06-12 06:11] LABS: Glucose,Whole Blood 105 mg/dL (70-110)
--- NOTE | 2024-06-12 06:14 | P.PN ---
Subjective Progress Note Date: 06/11/24 History of Present Illness 64-year-old male with history of peripheral vascular disease varicose veins DVT in the past atrial fibrillation came in with complaints of bilateral lower extremity pain significant in the left lower extremity multiple revascularization procedures in the past continues to smoke, ran out of his medication 2 months ago has not been taking any of his medications. Patient is supposed to be on Xarelto. Patient has not been taking any of his home medications CT angio of the left bilateral lower extremities showed new occlusion of the anterior right common femoral artery graft similar occlusion of left superficial femoral artery graft from its origin to the left popliteal artery and there is also occlusion of right superficial femoral artery extending throughout the distal stent grafts. Vascular surgery was consulted patient was started on IV heparin. 06/11/2024 Patient is seen in follow-up today continues to be in the ICU with vascular surgery following with tPA infusing per vascular surgery as patient is noted to have significant peripheral vascular disease with multiple previous interventions and arterial insufficiency. Patient will likely require a left femoropopliteal bypass per vascular surgery and will be scheduled for the outpatient setting in the near future. Patient per vascular surgery will transition to Xarelto and Plavix on discharge. Patient reporting improvements in his lower extremity weakness impaired and is currently to remain in recumbent position at this time post tPA per protocol. Hemoglobin is stable above 13 and no active bleeding noted. Patient is a downgrade out of the ICU once a bed on 3 S. is available. Review of systems: Constitutional: No reports of fatigue, fever, or chills Cardiovascular: No reports of chest pain or palpitations Respiratory: No reports of shortness of breath or cough GI: No reports of nausea, vomiting, or diarrhea : No reports of dysuria or retention Neurovascular: reports of generalized weakness, reports improvement in pain of the right lower extremity All medications have been reviewed Active Medications Acetaminophen (Acetaminophen Tab 325 Mg Tab) 650 mg PO Q6HR PRN PRN Reason: Mild Pain or Fever > 100.5 Hydrocodone Bitart/Acetaminophen (Hydrocodone/Apap 5-325mg 1 Each Tab) 1 each PO Q4HR PRN PRN Reason: Pain Scale 4 - 6 Amlodipine Besylate (Amlodipine 10 Mg Tab) 10 mg PO DAILY [facility] Last Admin: 06/11/24 08:39 Dose: 10 mg Aspirin (Aspirin 81 Mg) 81 mg PO DAILY [facility] Last Admin: 06/10/24 11:10 Dose: 81 mg Atorvastatin Calcium (Atorvastatin 40 Mg Tab) 40 mg PO HS [facility] Last Admin: 06/10/24 19:58 Dose: 40 mg Clopidogrel Bisulfate (Clopidogrel 75 Mg Tab) 75 mg PO DAILY [facility] Last Admin: 06/10/24 11:10 Dose: 75 mg Fluoxetine HCl (Fluoxetine Hcl 20 Mg Cap) 20 mg PO DAILY [facility] Last Admin: 06/11/24 08:39 Dose: 20 mg Hydromorphone HCl (Hydromorphone 0.5 Mg/0.5 Ml Syringe) 0.5 mg IVP Q3HR PRN PRN Reason: Severe Pain (Scale 7 to 10) Last Admin: 06/11/24 06:51 Dose: 0.5 mg Alteplase, Recombinant 10 mg/ (Sodium Chloride) 100 mls @ 10 mls/hr IA .Q10H ONE; Protocol Last Admin: 06/11/24 05:38 Dose: 1 mg/hr, 10 mls/hr Metoprolol Tartrate (Metoprolol Tartrate 25 Mg Tab) 25 mg PO BID [facility] Last Admin: 06/11/24 08:39 Dose: 25 mg Naloxone HCl (Naloxone 0.4 Mg/Ml 1 Ml Vial) 0.2 mg IV Q2M PRN PRN Reason: Opioid Reversal All other systems are negative except those mentioned in the HPI PHYSICAL EXAMINATION: GENERAL: The patient is alert and oriented x3, not in any acute distress. Well developed, well nourished. HEENT: Pupils are round and equally reacting to light. EOMI. No scleral icterus. No conjunctival pallor. Normocephalic, atraumatic. No pharyngeal erythema. No thyromegaly. CARDIOVASCULAR: S1 and S2 present. No murmurs, rubs, or gallops. PULMONARY: Chest is clear to auscultation, no wheezing or crackles. ABDOMEN: Soft, nontender, nondistended, normoactive bowel sounds. No palpable organomegaly. MUSCULOSKELETAL: No joint swelling or deformity. EXTREMITIES: No cyanosis, clubbing, or pedal edema. Significantly decreased pedal pulses in bilateral lower extremities significant in the left lower extremity NEUROLOGICAL: Gross neurological examination did not reveal any focal deficits. Diffusely weak SKIN: No rashes. Assessment: -Peripheral artery disease occlusion of the right common femoral artery graft and multiple other occlusions as mentioned above: Status post angiogram with tPA infusing - Type 2 diabetes mellitus - History of coronary disease with stents in the past - Varicose veins in bilateral lower extremities -Depression history -Continued ongoing nicotine abuse -DVT prophylaxis GI prophylaxis Full code Plan: Patient with vascular surgery following maintained on tPA infusion for thrombosed right fem-tib bypass previously. Patient will also require a left femoropopliteal bypass per vascular surgery and will be planning for near future intervention in the outpatient setting. Monitor for any signs of bleeding Encourage increase activity as tolerated Vascular surgery following and will follow outpatient and tentatively schedule left femoropopliteal bypass. To discuss further with vascular surgery if patient will continue on Plavix and Xarelto on discharge Possible discharge planning in the next 24 to 48 hours The impression and plan of care has been dictated by Breanne Bo, Nurse Practitioner as directed. Dr. Pravin MD I have performed a history and examination and MDM of this patient, discussed the same with the dictator, and agree with the dictator's assessment and plan as written ,documented as a scribe. Based on total visit time, I have performed more than 50% of the visit. Objective - Vital Signs Vital signs: Vital Signs Temp 98.1 F 06/11/24 08:00 Pulse 58 L 06/11/24 09:30 Resp 10 L 06/11/24 09:30 BP 152/98 06/11/24 09:30 Pulse Ox 95 06/11/24 09:30 FiO2 Intake & Output 06/10/24 06/11/24 06/11/24 18:59 06:59 18:59 Intake Total 728 600.333 79 Output Total 500 1900 200 Balance 228 -1299.667 -121 Weight 77.111 kg 77.5 kg Intake: IV 128 143 79 0.9 40 Alteplase 10 mg In Sodium 60 110 30 Chloride 0.9% 90 ml @ 1 MG/HR 10 mls/hr IA .Q10H ONE Rx#:[id number] Heparinized pressure bag 18 33 9 Intake, IV Titration 97.333 Amount Alteplase 10 mg In Sodium 97.333 Chloride 0.9% 90 ml @ 1 MG/HR 10 mls/hr IA .Q10H ONE Rx#:[id number] Oral 600 360 Output: Urine 500 1900 200 Other: Voiding Method Urinal Urinal # Voids 1 0 ABP, PAP, CO, CI - Last Documented Arterial Blood Pressure 122/84 - Labs CBC & Chem 7: 06/12/24 05:34 06/11/24 05:42 Labs: Abnormal Lab Results - Last 24 Hours (Table) 06/10/24 06/11/24 06/11/24 Range/Units 10:25 05:42 05:42 WBC 10.14 H (4.50-10.00) 10*3/uL APTT 48.7 H (22.0-30.0) sec Sodium 134 L (137-145) mmol/L POC Glucose (mg/dL) (70-110) mg/dL 06/11/24 Range/Units 06:28 WBC (4.50-10.00) 10*3/uL APTT (22.0-30.0) sec Sodium (137-145) mmol/L POC Glucose (mg/dL) 113 H (70-110) mg/dL
[2024-06-12 09:11] VITALS: TEMP 97.8
[2024-06-12] MEDS: SACUBITRIL/VALSARTAN 24 MG-26 MG TABLET PO SCH (10:04)
[2024-06-12 11:46] LABS: Glucose,Whole Blood 91 mg/dL (70-110)
--- NOTE | 2024-06-12 11:49 | P.PN ---
Subjective Progress Note Date: 06/12/24 Principal diagnosis: Acute ischemia right lower extremity, acute thrombosis right fem-tib bypass Patient seen and examined today as a follow-up. He is status post lower extremity angiogram with initiation of thrombolysis with placement of thrombolytic catheter with good results. Right lower extremity warm to the touch, pain improved with palpable DP pulse. Patient continues to have left lower extremity claudication and rest pain. Recommendation is for a left lower extremity femoropopliteal bypass. Cardiology following, asked for clearance for bypass surgery. Patient currently denies any shortness of breath, chest pain, abdominal pain nausea or vomiting. Left groin with bruising and tender. Objective - Vital Signs Vital signs: Vital Signs Temp 98.1 F 06/12/24 04:00 Pulse 67 06/12/24 04:00 Resp 18 06/12/24 04:00 BP 167/86 06/12/24 04:00 Pulse Ox 95 06/12/24 04:00 FiO2 Intake & Output 06/11/24 06/12/24 06/12/24 18:59 06:59 18:59 Intake Total 539.681 278.866 Output Total 800 Balance -260.319 278.866 Weight 75.7 kg Intake: IV 294 0.9 140 Alteplase 10 mg In Sodium 30 Chloride 0.9% 90 ml @ 1 MG/HR 10 mls/hr IA .Q10H ONE Rx#:[id number] Heparinized pressure bag 24 Intake, IV Titration 65.681 38.866 Amount Heparin Sod,Pork in 0.45% 65.681 38.866 NaCl 25,000 unit In 0.45 % NaCl 1 250ml.bag @ 15 UNITS/KG/HR 11.625 mls/hr IV .[id number] [facility] Rx#: [id number] Oral 180 240 Output: Urine 800 Other: Voiding Method Urinal # Voids 0 ABP, PAP, CO, CI - Last Documented Arterial Blood Pressure 122/84 - Exam General appearance: The patient is alert, oriented, appears in no acute distres s. HET: Head is normocephalic and atraumatic. Pupils are equal and reactive. Neck: Supple. Heart: Regular. Lungs: Equal expansion, normal respiratory effort. Abdomen: Soft, nontender, nondistended. Extremities: Right lower extremity warm to the touch, good capillary refill, sensorimotor intact, palpable DP pulse. Left groin access site with ecchymosis, soft, tender to palpation. Left foot cool, with some discoloration, sensorimotor intact. Neurological: No focal deficits. Strength and sensation are grossly intact. - Labs CBC & Chem 7: 06/12/24 05:34 06/11/24 05:42 Labs: Abnormal Lab Results - Last 24 Hours (Table) 06/11/24 06/11/24 06/12/24 Range/Units 11:21 17:13 05:34 MPV 9.3 L (9.5-12.2) fL Eosinophils # 0.44 H (0.04-0.35) 10*3/uL APTT 38.7 H (22.0-30.0) sec Assessment and Plan Assessment: 1. Occlusion of right common femoral artery graft resolved status post thrombolysis with thrombolytic catheter 2. Bilateral lower extremity peripheral arterial disease with multiple revascularizations 3. Medical noncompliance and noncompliance with medications, patient has not been taking any home meds since end february 4. Diabetes mellitus 5. Coronary artery disease status post stents, EF 35 to 40% 6. Tobacco use and dependence 7. History of hypertension and hyperlipidemia 8. Lower extremity varicose veins Plan: 1. Patient is status post lower extremity angiogram with initiation of thrombolysis 2. 2. Patient transition to oral anticoagulation 3. Continue Plavix 75 mg daily, discontinue aspirin 81 mg 4. Continue with recommendations from cardiology. Patient discussed with cardiology. He is cleared to undergo left lower extremity femoropopliteal bypass. 5. Discussed importance of medical compliance and medication compliance with patient. He verbalized understanding. 6. Strict glycemic control. 7. Discussed importance of complete smoking cessation. Continue with nicotine patch. Quit smoking hotline 1 800 quit-now given to patient. 8. Plan for outpatient left femoropopliteal bypass Thank you for this consultation, patient is cleared from vascular surgery for discharge. The impression and plan of care has been dictated as directed. I performed a history and examination of this patient, discussed the same with the dictator. I agree with the dictator's note ,documented as a scribe. Any additional findings or plans will be noted.
[2024-06-12 13:32] VITALS: BP 145/81; PULSE 61
--- NOTE | 2024-06-12 13:48 | P.PN ---
Subjective Progress Note Date: 06/12/24 Reason for Consult (text): PAD History of present illness: This is a 64-year-old male patient of Dr. Shaikh with past medical history of paroxysmal atrial fibrillation, PAD status post prior right lower extremity intervention, right acute limb ischemia and venous insufficiency, polycythemia, tobacco use and dependence, prior alcohol abuse, hypertension, diabetes. We have been asked to evaluate the patient for PAD. Patient had a hospitalization in January,, and found to have a left SFA occluded stent underwent tPA on 02/16 with SFA stent placement on 02/17. Patient was readmitted in February for occlusion of the stented SFA, occlusion of the upper popliteal artery with reconstitution as well as severe stenosis of the left anterior iliac artery. Patient had a follow-up visit with Dr. Shaikh on 04/15/2024. He had an ultrasound arterial lower extremity done on 04/09/2024 that was stable. Patient had no lower extremity pain at the time and no chest pain or shortness of breath. Unfortunately, patient has not been taking his medications since February. Blood pressure 160/92, heart rate 71, pulse ox 95% on room air. Patient is seen today in the emergency center waiting for a bed on the cardiac stepdown unit. Patient has been started on a heparin drip. Patient has also been seen by vascular surgery and is scheduled for right lower extremity angiogram. -EKG: Sinus rhythm, right bundle branch block, nonspecific ST changes. -Chest x-ray: No acute process. -CT angiogram of bilateral lower extremities: No occlusion of the anterior right common femoral artery graft in the subcutaneous tissues from its origin to its insertion in the lower leg with poorly visualized due to lack of contrast. Similar occlusion on the left superficial femoral artery stent graft from its origin to the left popliteal artery with reconstitution. Left posterior tibial artery crosses the ankle anterior tibial artery and left does not well appr eciated across the ankle. Similar occlusion of the right superficial femoral artery from the distal stent grafts with reconstitution of the anterior tibial artery. The posterior tibial artery is not well appreciated. Infrarenal abdominal aortic aneurysm measuring 31 mm. Stable. -Laboratory studies: CBC unremarkable. Initial potassium 5.4 now 4.2, creatinine initially 1.46 and now 1.18. Troponin negative x 1. -Home cardiac medications: None -Lexiscan stress test performed 05/15/2022 at [facility] revealed no evidence of reversible ischemia. -Echocardiogram performed 09/10/2023 at [facility] revealed EF 60%. 06/12 Patient seen and examined. He is scheduled for discharge home today. He denies chest pain or chest pressure. Blood pressure readings remain elevated. No 145 /81, heart rate in the 60s, pulse ox 97% on room air. Physical examination: Gen: This is 64-year-old male in no respiratory distress. VS: reviewed HEENT: Head is atraumatic, normocephalic. Pupils equal, round. Sclerae is anicteric. NECK: Supple. No JVD. LUNGS: Clear to auscultation. No wheezes or rhonchi. No intercostal retractions. HEART: Regular rate and rhythm. No murmur. ABDOMEN: Soft No tenderness. EXTREMITIES: No pedal edema. No calf tenderness. NEUROLOGICAL: Patient is awake, alert and oriented x3. Assessment: Occlusion of right common femoral artery graft Bilateral lower extremity peripheral artery disease with multiple revascularizations Right bundle branch block with nonspecific ST changes, chronic Cardiomyopathy with EF of 35 to 45% Paroxysmal atrial fibrillation History of DVT Hyperlipidemia Hypertension Diabetes mellitus type II Tobacco use and dependence BPH Sleep apnea Acute kidney injury, improved Plan: Continue patient on amlodipine 10 mg daily, aspirin 81 mg daily, atorvastatin 40 mg at bedtime, Plavix 75 mg daily, Lopressor 25 mg twice daily Patient has been started on Eliquis 5 mg twice daily Patient will be started on losartan 25 mg daily Patient is cleared for discharge from cardiology. Patient is at moderate to high risk for cardiovascular complications and a high risk surgery. No absolute contraindications. He is cleared for surgery. Patient will follow-up with Dr. Shaikh in 2 weeks. Nurse practitioner note has been reviewed, I agree with documented findings and plan of care. Patient was seen and examined. Objective - Vital Signs Vital signs: Vital Signs Temp 97.8 F 06/12/24 08:30 Pulse 71 06/12/24 08:30 Resp 18 06/12/24 08:30 BP 154/83 06/12/24 08:30 Pulse Ox 96 06/12/24 08:30 FiO2 Intake & Output 06/11/24 06/12/24 06/12/24 18:59 06:59 18:59 Intake Total 539.681 278.866 Output Total 800 Balance -260.319 278.866 Weight 75.7 kg Intake: IV 294 0.9 140 Alteplase 10 mg In Sodium 30 Chloride 0.9% 90 ml @ 1 MG/HR 10 mls/hr IA .Q10H ONE Rx#:[id number] Heparinized pressure bag 24 Intake, IV Titration 65.681 38.866 Amount Heparin Sod,Pork in 0.45% 65.681 38.866 NaCl 25,000 unit In 0.45 % NaCl 1 250ml.bag @ 15 UNITS/KG/HR 11.625 mls/hr IV .[id number] [facility] Rx#: [id number] Oral 180 240 Output: Urine 800 Other: Voiding Method Urinal # Voids 0 ABP, PAP, CO, CI - Last Documented Arterial Blood Pressure 122/84 - Labs CBC & Chem 7: 06/12/24 05:34 06/11/24 05:42 Labs: Abnormal Lab Results - Last 24 Hours (Table) 06/11/24 06/11/24 06/12/24 Range/Units 11:21 17:13 05:34 MPV 9.3 L (9.5-12.2) fL Eosinophils # 0.44 H (0.04-0.35) 10*3/uL APTT 38.7 H (22.0-30.0) sec
[2024-06-12] MEDS: LOSARTAN 25 MG TAB PO SCH (14:30)
[2024-06-13] MEDS ORDERED: LOSARTAN 25 MG TAB PO SCH (13:45)
--- NOTE | 2024-06-13 21:04 | P.DS ---
Providers Date of admission: 06/09/24 21:26 Attending physician: Chloé Coates Consults: 06/09/24 21:24 Consult Physician Routine Consulting Provider: Angus Shaikh Consult Reason/Comments: PAD Do you want consulting provider notified?: Yes, Notify in am Consult Physician Routine Consulting Provider: Marlon Ordoñez Consult Reason/Comments: peripheral arterial disease, occlusion Do you want consulting provider notified?: Yes, Notify in am Primary care physician: Georgina Romo [facility] Course: Final Diagnosis -Peripheral artery disease occlusion of the right common femoral artery graft and multiple other occlusions as mentioned above: Status post angiogram with tPA infusing -Type 2 diabetes mellitus -History of coronary disease with stents in the past -Varicose veins in bilateral lower extremities -Depression history -Continued ongoing nicotine abuse Discharge Disposition Patient stable for discharge home. He will be undergo left femoropopliteal bypass outpatient in the next week with vascular surgery. He has been discharged on combination of eliquis and plavix. Hospital Course 64-year-old male with history of peripheral vascular disease varicose veins DVT in the past atrial fibrillation came in with complaints of bilateral lower extremity pain significant in the left lower extremity multiple revascularization procedures in the past continues to smoke, ran out of his medication 2 months ago has not been taking any of his medications. Patient is supposed to be on Xarelto. Patient has not been taking any of his home medications CT angio of the left bilateral lower extremities showed new occlusion of the anterior right common femoral artery graft similar occlusion of left superficial femoral artery graft from its origin to the left popliteal artery and there is also occlusion of right superficial femoral artery extending throughout the distal stent grafts. Vascular surgery was consulted patient was started on IV heparin. Vascular surgery recommending TPA. Patient is noted to have significant peripheral vascular disease with multiple previous interventions and arterial insufficiency. Patient will likely require a left femoropopliteal bypass per vascular surgery and will be scheduled for the outpatient setting in the near future. Patient per vascular surgery will transition to Eliquis and Plavix on discharge. Patient reporting improvements in his lower extremity weakness. He is now on the cardiac floor and has been up ambulating. He will be discharged home without close outpatient follow up. Discussed smoking cessation. Please see medication reconciliation for a list of current medications. Thank you for allowing us to participate in the care of this patient. The impression and plan of care has been dictated by Kourtney Meneses Nurse Practitioner as directed. Dr. Pravin MD I have performed a history and physical examination and medical decision making of this patient, discussed the same with the dictator, and agree with the dictators assessment and plan as written, documented as a scribe. Based on total visit time, I have performed more than 50% of this visit. Patient Condition at Discharge: Stable Plan - Discharge Summary Discharge Rx Participant: Yes New Discharge Prescriptions: New Clopidogrel [Plavix] 75 mg PO DAILY #30 tab Metoprolol Tartrate [Lopressor] 25 mg PO BID #60 tab Apixaban [Eliquis] 5 mg PO BID #60 tab Atorvastatin [Lipitor] 40 mg PO HS #30 tab amLODIPine [Norvasc] 10 mg PO DAILY #30 tab Pantoprazole [Protonix] 40 mg PO AC-BRKFST #30 tab FLUoxetine HCL [PROzac] 20 mg PO DAILY #30 cap Acetaminophen Tab [Tylenol] 650 mg PO Q6HR PRN tab PRN Reason: Mild Pain Or Fever > 100.5 Losartan [Cozaar] 25 mg PO DAILY #30 tab HYDROcodone/APAP 5-325MG [[place] 5-325] 1 tab PO Q4HR PRN 3 Days #18 tab PRN Reason: Pain Discharge Medication List Acetaminophen Tab [Tylenol] 650 mg PO Q6HR PRN tab 06/12/24 [Rx] Apixaban [Eliquis] 5 mg PO BID #60 tab 06/12/24 [Rx] Atorvastatin [Lipitor] 40 mg PO HS #30 tab 06/12/24 [Rx] Clopidogrel [Plavix] 75 mg PO DAILY #30 tab 06/12/24 [Rx] FLUoxetine HCL [PROzac] 20 mg PO DAILY #30 cap 06/12/24 [Rx] HYDROcodone/APAP 5-325MG [[place] 5-325] 1 tab PO Q4HR PRN 3 Days #18 tab 06/12/24 [Rx] Losartan [Cozaar] 25 mg PO DAILY #30 tab 06/12/24 [Rx] Metoprolol Tartrate [Lopressor] 25 mg PO BID #60 tab 06/12/24 [Rx] Pantoprazole [Protonix] 40 mg PO AC-BRKFST #30 tab 06/12/24 [Rx] amLODIPine [Norvasc] 10 mg PO DAILY #30 tab 06/12/24 [Rx] Follow up Appointment(s)/Referral(s): Karolina Rivers DO [STAFF PHYSICIAN] - 1 Week (Dr. Nuno's office will call you to set up outpatient left lower extremity bypass) Georgina Romo MD [Primary Care Provider] - 1-2 days Activity/Diet/Wound Care/Special Instructions: No driving for two days. Avoid heavy lifting greater than 10 lbs , pushing, pulling, straining, flights of stairs for three days. ok to shower tomorrow but no baths, pools, soaking in tubs for three days to avoid risk of infection. signs of infection ie: fever, rash, drainage from puncture site, swelling contact doctor or return to ER immediately. Heavy bleeding from puncture site apply firm direct pressure and return to ER. Do not attempt to drive self. low sodium/low fat diet, consistent carbohydrate diet Discussed with patient importance of smoking cessation. Patient offered nicotine patch. Quit smoking hotline 1 800 quit-now given to patient. Discharge Disposition: HOME SELF-CARE
== END 2024-06-12 15:19 | disposition home or self-care (01) | DRG 315 ==
LOC: EC 16:40 → 3SCARD 21:26 → 2SICU 06-10 12:50 → 3SCARD 06-11 16:15
PROVIDERS: ADMIT Internal Medicine; ATTEND Internal Medicine
PROC: 3E05317 Introduction of Other Thrombolytic into Peripheral Artery, Percutaneous Approach (ICD-10-PCS; principal; 2024-06-10 12:00)
PROC: B41F1ZZ Fluoroscopy of Right Lower Extremity Arteries using Low Osmolar Contrast (ICD-10-PCS; 2024-06-11 10:00)
PROC: B41G1ZZ Fluoroscopy of Left Lower Extremity Arteries using Low Osmolar Contrast (ICD-10-PCS; 2024-06-11 10:00)
DX: T82.868A Thrombosis due to vascular prosthetic devices, implants and grafts, initial encounter (principal); I42.8 Other cardiomyopathies; I74.3 Embolism and thrombosis of arteries of the lower extremities; I11.0 Hypertensive heart disease with heart failure; I50.22 Chronic systolic (congestive) heart failure; N17.9 Acute kidney failure, unspecified; E11.51 Type 2 diabetes mellitus with diabetic peripheral angiopathy without gangrene; F32.A Depression, unspecified; I70.222 Atherosclerosis of native arteries of extremities with rest pain, left leg; I48.0 Paroxysmal atrial fibrillation; I71.43 Infrarenal abdominal aortic aneurysm, without rupture; T50.916A Underdosing of multiple unspecified drugs, medicaments and biological substances, initial encounter; I25.10 Atherosclerotic heart disease of native coronary artery without angina pectoris; I83.93 Asymptomatic varicose veins of bilateral lower extremities; F17.210 Nicotine dependence, cigarettes, uncomplicated; I45.10 Unspecified right bundle-branch block; E78.5 Hyperlipidemia, unspecified; N40.0 Benign prostatic hyperplasia without lower urinary tract symptoms; T43.226A Underdosing of selective serotonin reuptake inhibitors, initial encounter; G47.30 Sleep apnea, unspecified; Z91.199 Patient's noncompliance with other medical treatment and regimen due to unspecified reason; Z86.718 Personal history of other venous thrombosis and embolism; Z91.148 Patient's other noncompliance with medication regimen for other reason; Z95.5 Presence of coronary angioplasty implant and graft; Z71.6 Tobacco abuse counseling; I25.2 Old myocardial infarction; Z82.49 Family history of ischemic heart disease and other diseases of the circulatory system; Z96.641 Presence of right artificial hip joint
CPT/HCPCS: 36415; 37211; 37214; 71046; 75710; 76937; 80048; 80053; 83735; 84484; 85025; 85027; 85384; 85610; 85730; 93005; 93306; 96365; 96366; 96375; 96376; 99285

== ENCOUNTER 2024-06-26 05:34 | Inpatient (IN) | payer MEDICARE ==
[2024-06-23 14:07] VITALS: BMI 24.8
[2024-06-26] MEDS ORDERED: LIDOCAINE 1% (10MG/ML) FOR IV START INTRADERMA PRN (05:55)
[2024-06-26 06:35] LABS: Glucose,Whole Blood 107 mg/dL (70-110)
[2024-06-26] MEDS: LACTATED RINGERS 1,000 ML IV SCH (06:35)
[2024-06-26] MEDS: IV FLUID CONTINUATION 1,000 ML IV ONE ×2 (06:40→06:41)
[2024-06-26 06:51] LABS: Prothrombin Time 11.2 sec (10.0-12.5)
[2024-06-26] MEDS: MIDAZOLAM 2 MG/2 ML VIAL IV ONE (06:58)
[2024-06-26] MEDS: fentaNYL (PF) 50 MCG/ML 2 ML AMP IVP PRN (06:58)
[2024-06-26] MEDS: ONDANSETRON 4 MG/2 ML VIAL IVP ONE (07:15)
[2024-06-26] MEDS ORDERED: NEOSTIGMINE 1 MG/ML 10 ML VIAL ONE (07:23)
[2024-06-26] MEDS ORDERED: HYDROmorphone (PF) 1 MG/ML ONE (07:23)
[2024-06-26] MEDS ORDERED: PHENYLEPHRINE 10 MG/ML VIAL ONE (07:23)
[2024-06-26] MEDS ORDERED: GLYCOPYRROLATE 0.2 MG/ML 2 ML VIAL ONE (07:23)
[2024-06-26] MEDS ORDERED: MIDAZOLAM 2 MG/2 ML VIAL ONE (07:23)
[2024-06-26] MEDS ORDERED: PROPOFOL 10 MG/ML 20 ML VIAL IV ONE (07:23)
[2024-06-26] MEDS ORDERED: PHENYLEPHRINE-0.9% NACL SYG 1,000 MCG/10 ML SYRINGE ONE (07:23)
[2024-06-26] MEDS ORDERED: SUCCINYLCHOLINE CHLORIDE 200 MG/10 ML VIAL IV ONE (07:23)
[2024-06-26] MEDS ORDERED: ROCURONIUM 10 MG/ML (5 ML VIAL) IV ONE (07:23)
[2024-06-26] MEDS ORDERED: LIDOCAINE 1% INJ 10MG/ML (20 ML MDV) ONE (07:23)
[2024-06-26] MEDS ORDERED: fentaNYL (PF) 50 MCG/ML 2 ML AMP ONE (07:23)
[2024-06-26] MEDS ORDERED: HEPARIN SODIUM,PORCINE 10,000 UNIT/ML 1 ML VIAL ONE (07:23)
[2024-06-26] MEDS: ceFAZolin 2 GM in DEXTROSE 5% IN WATER 50 ML IVPB PRN (07:28)
[2024-06-26] MEDS: ceFAZolin 4 GM in SODIUM CHLORIDE 0.9% 1,000 ML IRRIGATION ONE (07:30)
[2024-06-26] MEDS: HEPARIN SODIUM PORCINE IRRIGATION ONE (07:30)
[2024-06-26] MEDS: THROMBIN (BOVINE) 5,000 UNIT VIAL TOPICAL ONE (07:30)
[2024-06-26] MEDS: SODIUM CHLORIDE 0.9% IRRIGATION ONE (07:30)
[2024-06-26] MEDS: HEPARIN SODIUM,PORCINE 500 UNIT in LACTATED RINGERS 1,000 ML IRRIGATION ONE (07:30)
[2024-06-26] MEDS: DEXTROSE 5%-LACTATED RINGERS 1,000 ML IV ONE (07:30)
[2024-06-26] MEDS: LACTATED RINGERS 1,000 ML IV ONE (10:08)
[2024-06-26] MEDS: HYDROmorphone 0.5 MG/0.5 ML SYRINGE IVP PRN (11:11)
[2024-06-26 12:20] LABS: Glucose,Whole Blood 108 mg/dL (70-110)
--- NOTE | 2024-06-26 13:58 | P.OP ---
Date of Procedure: 06/26/24 Description of Procedure: Preoperative diagnosis: [facility] peripheral arterial disease left lower extremity, superficial femoral artery occlusive disease Postoperative diagnosis: Same Procedure: Femoral to below-knee popliteal bypass with CryoVein Surgeon: Karolina Nuno D.O. Lumber Checker: Deacon EBL: 100 cc IV fluids: See records Urine output: Records Specimen: None Complications: None Condition: Stable, extubated in the OR to PACU Operative indication and findings: The patient is a 64-year-old male with severe peripheral vascular disease and multiple previous interventions including endovascular inventions. Unfortunately there is no further intervention that is beneficial therefore he presents today for a femoral to below-knee popliteal bypass. Risks and benefits were discussed including but not limited to bleeding, infection, limb loss, heart attack, poor wound healing and . The patient seemingly understood and was willing to proceed. Procedure in detail: Patient taken to the operative suite placed in supine position and intubated. A Nuno catheter was placed. The abdomen and left lower extremity prepped and draped in usual sterile fashion. A preprocedure timeout was performed and all parties are in agreement. A a longitudinal incision was made in the left groin with the scalpel. It was deepened through subcutaneous tissues with electrocautery. The encountered lymphatics were ligated and divided. The femoral sheath was opened sharply. The common femoral artery was dissected free circumferentially. The dissection was extended proximally to the level of the inguinal ligament. There was significant abnormality of the femoral vessel itself due to the multiple previous accesses from his endovascular approach with closure devices. There was a small area of pseudoaneurysmal disease.. This was dissected free and up to apply a Satinsky for occlusive control Attention was then turned towards the below-knee incision. It was made in the medial condyle and deepened through the fascia there were multiple ropey varicosities which were ligated with 3 oh ties. The popliteal artery was identified the popliteal vein was retracted. Vessel loops were placed after careful circumferential dissection . The cryopreserved vein was then tunneled after the patient was then heparinized. An arteriotomy was created in the femoral artery, the majority of the pseudoaneurysmal sac and abnormal portions including closure devices were removed. Luminal flow was identified and an anastomosis created using 6-0 Prolene between the femoral artery and the saphenous vein. The vein was marked. Passed through the tunnel. At that point the arteriotomy of the popliteal segment was performed. The vein was cut to size and spatulated. Utilizing 6-0 Prolene an anastomosis was created. Hemostasis was achieved with interrupted sutures of 6-0 Prolene and Surgicel. At this point all anastomoses were completed and flow was resumed through the bypass graft. A Doppler was utilized to confirm multiphasic flow distally to the anastomosis. The wound was copiously irrigated with antibiotic solution. The femoral sheath was reapproximated with interrupted sutures of 3-0 Vicryl. The subcuticular tissue was reapproximated with 3-0 Vicryl. The skin was reprepped with running sutures of 4-0 Monocryl. The popliteal fascia was reapproximated with 3-0 Vicryl. The subcutaneous tissues were reapproximated with 3-0 Vicryl and the skin along the length of the vein harvest was refractory with running 4-0 Monocryl in subcuticular fashion. Incisional wound VAC dressings was placed.
[2024-06-26] MEDS: HYDROcodone/APAP 5-325MG 1 EACH TAB PO PRN (16:19)
[2024-06-26] MEDS: APIXABAN 5 MG TAB PO SCH (19:26)
[2024-06-26] MEDS: MORPHINE SULFATE 4 MG/ML SYRINGE IV PRN (19:32)
[2024-06-26] MEDS: METOPROLOL TARTRATE 25 MG TAB PO SCH (21:07)
[2024-06-26] MEDS: ATORVASTATIN 40 MG TAB PO SCH (21:07)
[2024-06-26] MEDS: SACUBITRIL/VALSARTAN 24 MG-26 MG TABLET PO SCH (21:07)
[2024-06-27] MEDS: PANTOPRAZOLE 40 MG TABLET PO SCH (06:29)
[2024-06-27] MEDS ORDERED: DEXTROSE 50% SYRINGE 50 ML IVP PRN ×2 (07:59)
[2024-06-27] MEDS: CLOPIDOGREL 75 MG TAB PO SCH (08:17)
[2024-06-27] MEDS: LOSARTAN 25 MG TAB PO SCH (08:17)
[2024-06-27] MEDS: FLUoxetine HCL 20 MG CAP PO SCH (08:17)
[2024-06-27] MEDS: HYDROmorphone 1 MG/ML 1 ML SYRINGE IVP PRN (08:27)
--- NOTE | 2024-06-27 08:37 | P.PN ---
Subjective Progress Note Date: 06/27/24 Principal diagnosis: Left lower extremity femoral to below-knee bypass 64-year-old male severe peripheral arterial disease with multiple previous intervention including endovascular interventions with no further intervention that would benefit patient so he was scheduled for elective femoral to below the knee popliteal bypass with CryoVein. He is postop day #1 for left femoral to below the knee bypass with CryoVein. He states that the pain, burning sensation in his foot is already improved. States that he has some discomfort in his left groin at the surgical site as well as surgical incision in his left calf. Sensorimotor intact. Denies any shortness of breath or chest pain. Tolerating heart healthy diet. Nuno catheter is still in patient has not been up yet to walk this morning. Objective - Vital Signs Vital signs: Vital Signs Temp 98.3 F 06/27/24 04:00 Pulse 59 L 06/27/24 04:00 Resp 16 06/27/24 04:00 BP 121/67 06/27/24 04:00 Pulse Ox 95 06/27/24 04:00 FiO2 Intake & Output 06/26/24 06/27/24 06/27/24 18:59 06:59 18:59 Intake Total 2394 540 Output Total 700 1925 Balance 1694 -1385 Weight 77 kg Intake: IV 1854 Oral 540 540 Output: Urine 600 1925 Estimated Blood Loss 100 Other: Voiding Method Indwelling Catheter - Exam General appearance: The patient is alert, oriented, appears in no acute distress. HET: Head is normocephalic and atraumatic. Pupils are equal and reactive. Neck: Supple. Heart: Regular. Lungs: Equal expansion, normal respiratory effort. Abdomen: Soft, nontender, nondistended. Extremities: Normal skin color and turgor. Left lower extremity warm to the touch, varicosities, palpable PT pulse, DP Doppler signal present. Left groin with Prevena wound VAC in place with good suction, left calf incision with dressing clean dry and intact. Neurological: No focal deficits. Strength and sensation are grossly intact. Assessment and Plan Assessment: 1. Postop day #1 for left femoral to below-knee popliteal bypass with CryoVein 2. For peripheral arterial disease left lower extremity with superficial femoral artery occlusive disease 3. Peripheral arterial disease with multiple prior revascularization 4. Diabetes mellitus 5. Atrial fibrillation 6. Coronary artery disease with history of cardiac stent 7. Tobacco use 8. History of DVT 9. Hypertension and hyperlipidemia 10. BPH Plan: 1. Continue symptomatic and supportive care 2. Continue pain management 3. Encourage ambulation 4. Discontinue Nuno catheter 5. Consult to physical therapy for evaluation and treatment left lower extremity bypass 6. Keep Prevena wound VAC in place to left groin until 07/02/2024 7. Resume home meds including Plavix and Eliquis 8. Medical team consulted for medical management 9. Anticipate discharge tomorrow The impression and plan of care has been dictated as directed. Dr. Ordoñez I performed a history and examination of this patient, discussed the same with the dictator. I agree with the dictator's note ,documented as a scribe. Any additional findings or plans will be noted.
[2024-06-27] MEDS: amLODIPine 10 MG TAB PO SCH (11:35)
[2024-06-27] MEDS: SODIUM CHLORIDE 0.9% 500 ML 500 ML IV ONE (11:50)
[2024-06-27 11:57] LABS: Glucose,Whole Blood 95 mg/dL (70-110)
[2024-06-27 12:05] LABS: HCT 40.2 % (39.6-50.0); HGB 13.1 g/dL (13.0-17.0); MCH 29.9 pg (27.0-32.0); MCHC 32.6 g/dL (32.0-37.0); MCV 91.8 fL (80.0-97.0); Mean Platelet Volume 9.9 fL (9.5-12.2); Platelet Count 252 10*3/uL (140-440); RBC 4.38 10*6/uL (4.40-5.60); RDW 15.8 % (11.5-14.5); WBC 11.48 10*3/uL (4.50-10.00)
[2024-06-27] MEDS: INSULIN LISPRO (HumaLOG) 100 UNIT/ML 10 mL VL SQ SCH (12:08)
[2024-06-27 12:21] LABS: ALT 19 U/L (4-49); AST 26 U/L (17-59); African American GFR (CKD) 84 (>60 ml/min/1.73 sqM); Albumin 3.2 g/dL (3.5-5.0); Alkaline Phosphatase 60 U/L (38-126); Anion Gap 7 mmol/L; Blood Urea Nitrogen 14 mg/dL (9-20); Calcium 8.9 mg/dL (8.4-10.2); Carbon Dioxide 25 mmol/L (22-30); Chloride 100 mmol/L (98-107); Glucose 109 mg/dL (74-99); Non-African American GFR(CKD) 73 (>60 ml/min/1.73 sqM); Potassium 4.2 mmol/L (3.5-5.1); Sodium 132 mmol/L (137-145); Total Bilirubin 0.5 mg/dL (0.2-1.3); Total Protein 5.7 g/dL (6.3-8.2)
--- NOTE | 2024-06-27 13:10 | P.PN ---
Progress Note - Text Progress Note Date: 06/27/24 We were called regarding patient having a vasovagal response when standing and became hypotensive, and diaphoretic. Patient states he had significant pain in his left lower extremity with standing and continues to have a lot of calf pain. Orders were given for 500 cc normal saline bolus, stat CBC, CMP and glucose. Patient vital signs are now stable, states that he is feeling better other than pain in his calf. Hypertension medications were held. Left lower extremity reevaluated, does appear to have some swelling around the left medial calf incision, likely hematoma. Palpable PT pulse. Lower extremity warm to the touch with good capillary refill. Sensorimotor intact. Discussed with patient's nurse to monitor left lower extremity hematoma. Will repeat labs tomorrow. Medical team following as well. WBC 11.4 hemoglobin 13 platelet count 252,000 sodium 132 potassium 4.2 BUN 14 creatinine 1.0 glucose 109 magnesium 2.0 The impression and plan of care has been dictated as directed. I performed a history and examination of this patient, discussed the same with the dictator. I agree with the dictator's note ,documented as a scribe. Any additional findings or plans will be noted.
--- NOTE | 2024-06-27 15:31 | P.CONS ---
History of Present Illness - Reason for Consult Consult date: 06/27/24 Medical management status post femoropopliteal bypass - History of Present Illness This is a pleasant 64-year-old male who was admitted under vascular surgery services and is status post left femoropopliteal bypass on 06/26/2024. Patient follows with Dr. Blue Elizabeth in the outpatient setting with a past medical history of atrial fibrillation, diabetes mellitus, DVT, hyperlipidemia, hypertension, prostate disorder, sleep apnea and does not use a CPAP, vascular disorder with cardiomyopathy and PAD with significant varicose veins, anxiety, continued ongoing nicotine abuse and occasional alcohol use. Patient has been following with vascular surgery for quite some and was recently hospitalized in May with occlusion of the right common femoral artery graft and is status post angiogram. The surgical intervention was discussed and patient was hospitalized under vascular surgery with medical management on consult. Labs reviewed from this morning reveal a white count of 11.48, hemoglobin is stable at 13.1, sodium 132, potassium 4.2, BUN 14 with a creatinine of 1.08, blood sugars being monitored and well-controlled at this time and will continue current regimen. Patient was on heparin drip and has transition to Eliquis 5 mg twice daily last night per vascular surgery and is continued on Plavix. Patient did develop a small hematoma at the surgical site of the left calf area and is tender to touch with no active bleeding noted at this time. Recommend to monitor closely and patient is bedbound for today. REVIEW OF SYSTEMS: CONSTITUTIONAL: No fever, no malaise, no fatigue. HEENT: No recent visual problems or hearing problems. Denied any sore throat. CARDIOVASCULAR: No chest pain, orthopnea, PND, no palpitations, no syncope. PULMONARY: No shortness of breath, no cough, no hemoptysis. GASTROINTESTINAL: No diarrhea, no nausea, no vomiting, no abdominal pain. NEUROLOGICAL: No headaches, no weakness, no numbness. HEMATOLOGICAL: Denies any bleeding or petechiae. GENITOURINARY: Denies any burning micturition, frequency, or urgency. MUSCULOSKELETAL/RHEUMATOLOGICAL: Denies any joint pain, swelling, or any muscle pain. Reports significant left lower extremity pain and some swelling of the left calf ENDOCRINE: Denies any polyuria or polydipsia. The rest of the 14-point review of systems is negative. PHYSICAL EXAMINATION: GENERAL: The patient is alert and oriented x3, not in any acute distress. Well developed, well nourished. Appears older than stated age HEENT: Pupils are round and equally reacting to light. EOMI. No scleral icterus. No conjunctival pallor. Normocephalic, atraumatic. No pharyngeal erythema. No thyromegaly. CARDIOVASCULAR: S1 and S2 present. No murmurs, rubs, or gallops. PULMONARY: Chest is clear to auscultation, no wheezing or crackles. ABDOMEN: Soft, nontender, nondistended, normoactive bowel sounds. No palpable organomegaly. MUSCULOSKELETAL: No joint swelling or deformity. Minimal calf swelling at the surgical site EXTREMITIES: No cyanosis, clubbing, or pedal edema. Positive pulses noted on the left lower extremity NEUROLOGICAL: Gross neurological examination did not reveal any focal deficits. Diffusely weak SKIN: No rashes. Assessment: Status post left lower extremity femoropopliteal bypass with CryoVein, postop day 1 secondary to severe peripheral artery disease Mild leukocytosis, WBC 11.48, likely reactive Hyponatremia with a sodium of 132 with mild dehydration History of DVT History of sleep apnea and does not use CPAP History of anxiety Hypertension Hyperlipidemia History of cardiomyopathy with most recent echo in May 2024 showing an EF of 50 to 55% with anteroapical and anterolateral apical mild hypokinesis with mildl y increased septal wall thickness, mild mitral and tricuspid regurgitation and trace to mild aortic regurgitation History of atrial fibrillation maintained on anticoagulation which Eliquis is being resumed per vascular surgery History of severe peripheral artery disease with multiple interventions i ncluding revascularization in May History of coronary artery disease with previous stents Continued ongoing nicotine dependence GI prophylaxis DVT prophylaxis Full code Plan: Patient was admitted under vascular surgery services status post left femoropopliteal bypass with CryoVein on 06/26/2024. Eliquis has been resumed per vascular surgery along with Plavix and will continue Patient is bedbound today and will be evaluated by PT/OT therapy as patient attempted to get up and had extreme left leg pain with dizziness and hypotension, likely vasovagal and was given a 500 bolus and improved Patient does have a small hematoma at the surgical site which is being monitored and hemoglobin is stable with no active bleeding noted. Patient is a diabetic and blood sugars have been well-controlled and will continue with heart healthy consistent carb diet and sliding scale along with home medications. Adjust accordingly Recommend follow-up labs and monitor CBC Tobacco cessation was discussed extensively and will provide nicotine patch as needed Home medications reviewed and resumed as appropriate We will continue to follow with vascular surgery during hospitalization. Thank you kindly for this consultation. The impression and plan of care has been dictated by Breanne Bo, Nurse Practitioner as directed. Dr. Pravin MD I have performed a history and examination and MDM of this patient, discussed the same with the dictator, and agree with the dictator's assessment and plan as written ,documented as a scribe. Based on total visit time, I have performed more than 50% of the visit. Past Medical History Past Medical History: Atrial Fibrillation, Diabetes Mellitus, Deep Vein Thrombosis (DVT), Hyperlipidemia, Hypertension, Myocardial Infarction (CO), Prostate Disorder, Sleep Apnea/CPAP/BIPAP, Vascular Disorder Additional Past Medical History / Comment(s): L femoral artery occlusion. Hx "mini heart attack/scarring"-pt states per heart ultrasound report from . Cardiomyopathy. PAD. Varicose veins. Enlarged prostate. No CPAP use. Hx of "internal bleeding" after surgery, requiring blood transfusion. Last Myocardial Infarction Date:: pt unsure of exact date History of Any Multi-Drug Resistant Organisms: MRSA Year Discovered:: 07/05/21 MDRO Source:: Left Ankle Past Surgical History: Joint Replacement Additional Past Surgical History / Comment(s): Stent to R leg, vein graft R leg, R femoral bypass, 4 stents to L leg-currently occluded, R hip replacement. B/L lower extremity angiogram 05/2024. Past Anesthesia/Blood Transfusion Reactions: No Reported Reaction Additional Past Anesthesia/Blood Transfusion Reaction / Comm: Hx of blood tranfusion- no known reactions. Date of Last Stent Placement:: Unknown Smoking Status: Current some day smoker - Past Family History Mother Family Medical History: Diabetes Mellitus, Deep Vein Thrombosis (DVT), Hypertension, Myocardial Infarction (CO) Additional Family Medical History / Comment(s): Mother had blood clot in L leg/foot, L foot amputation due to gangrene. Passed from heart attack. Family history of varicose veins. Father Family Medical History: CVA/TIA, Myocardial Infarction (CO) Medications and Allergies Home Medications Medication Instructions Recorded Confirmed Type Apixaban [Eliquis] 5 mg PO BID #60 tab 06/12/24 06/23/24 Rx Atorvastatin [Lipitor] 40 mg PO HS #30 tab 06/12/24 06/26/24 Rx Clopidogrel [Plavix] 75 mg PO DAILY #30 tab 06/12/24 06/23/24 Rx FLUoxetine HCL [PROzac] 20 mg PO DAILY #30 cap 06/12/24 06/26/24 Rx Losartan [Cozaar] 25 mg PO DAILY #30 tab 06/12/24 06/26/24 Rx Metoprolol Tartrate [Lopressor] 25 mg PO BID #60 tab 06/12/24 06/26/24 Rx Pantoprazole [Protonix] 40 mg PO AC-BRKFST #30 tab 06/12/24 06/26/24 Rx amLODIPine [Norvasc] 10 mg PO DAILY #30 tab 06/12/24 06/26/24 Rx Sacubitril/Valsartan [Entresto 24 1 each PO BID 06/23/24 06/26/24 History mg-26 mg Tablet] metFORMIN HCL [Glucophage] 500 mg PO BID 06/23/24 06/26/24 History HYDROcodone/APAP 5-325MG [[place] 1 each PO Q4HR PRN 3 Days #18 tab 06/27/24 Rx 5-325] Allergies Allergy/AdvReac Type Severity Reaction Status Date / Time No Known Allergies Allergy Verified 06/26/24 05:57 Physical Exam Vitals: Vital Signs Temp Pulse Resp BP Pulse Ox 06/27/24 08:08 14 95 06/27/24 08:00 98 F 60 14 112/66 96 06/27/24 04:00 98.3 F 59 L 16 121/67 95 06/26/24 23:56 98 F 67 16 129/74 98 06/26/24 19:20 97.9 F 64 16 145/73 98 06/26/24 18:00 90 16 154/93 99 06/26/24 17:00 79 16 155/90 98 06/26/24 15:39 100 06/26/24 14:38 73 16 169/87 100 06/26/24 13:20 62 16 152/89 97 06/26/24 13:05 61 16 148/93 99 06/26/24 12:50 64 16 169/94 99 06/26/24 12:35 69 18 149/76 98 06/26/24 12:20 65 16 161/88 96 06/26/24 12:05 67 15 137/83 96 06/26/24 11:50 70 16 167/95 96 06/26/24 11:35 73 15 163/83 92 L 06/26/24 11:20 74 17 161/89 99 06/26/24 11:05 70 16 163/86 98 06/26/24 10:50 82 16 163/86 98 Intake and Output 06/26/24 06/27/24 06/27/24 22:59 06:59 14:59 Intake Total 1080 240 Output Total 1100 825 500 Balance -20 -825 -260 Intake: Oral 1080 240 Output: Urine 1100 825 500 Other: Voiding Method Indwelling Catheter Indwelling Catheter Weight 77 kg Results CBC & Chem 7: 06/27/24 11:48 06/27/24 11:48
[2024-06-27 16:29] LABS: Glucose,Whole Blood 102 mg/dL (70-110)
[2024-06-27] MEDS: HYDROmorphone 0.5 MG/0.5 ML SYRINGE IVP PRN (16:57)
[2024-06-27] MEDS ORDERED: ACETAMINOPHEN TAB 325 MG TAB PO PRN (18:26)
[2024-06-27 19:54] LABS: Glucose,Whole Blood 124 mg/dL (70-110)
[2024-06-28 06:23] LABS: Glucose,Whole Blood 117 mg/dL (70-110)
[2024-06-28 07:44] LABS: HCT 38.7 % (39.6-50.0); HGB 12.7 g/dL (13.0-17.0); MCH 29.5 pg (27.0-32.0); MCHC 32.8 g/dL (32.0-37.0); Mean Platelet Volume 9.8 fL (9.5-12.2); Platelet Count 203 10*3/uL (140-440); RDW 15.9 % (11.5-14.5); WBC 8.66 10*3/uL (4.50-10.00)
--- NOTE | 2024-06-28 08:53 | P.PN ---
Subjective Progress Note Date: 06/28/24 Principal diagnosis: Postop day #2 status post left femoral to popliteal bypass graft. Overall the patient indicates he feels well. He is voiding without issue. He has been ambulatory to a limited degree in the hallway. Objective - Vital Signs Vital signs: Vital Signs Temp 98.4 F 06/28/24 03:52 Pulse 60 06/28/24 03:52 Resp 16 06/28/24 03:52 BP 128/72 06/28/24 03:52 Pulse Ox 94 L 06/28/24 03:52 FiO2 Intake & Output 06/27/24 06/28/24 06/28/24 18:59 06:59 18:59 Intake Total 240 240 Output Total 1200 1000 Balance -960 -760 Weight 81.5 kg Intake: Oral 240 240 Output: Gastric Drainage 0 Urine 1200 1000 Stool 0 Urine/Stool Mix 0 Emesis 0 Oral Regurgitation 0 Other 0 Other: Voiding Method Indwelling Catheter Urinal # Voids 0 2 # Bowel Movements 0 - Exam Patient is awake, alert and in no apparent distress. Surgical wounds are clean, dry and healing in an otherwise unremarkable manner. Patient has a palpable posterior tibial pulse. The left calf is soft. I discussed with the patient his current situation which is that of a good postoperative course and I believe the patient can be safely discharged to his residence. He indicates he lives with a another male who is approximately 40 years old and can help him about the house. The patient indicates she otherwise can take care of himself. I indicated that I would like for him to keep his leg elevated while not ambulatory and that he can shower/bathe over his lower leg wound at his convenience. He was asked to keep the Prevena on until of next week if at all possible. He was asked to follow-up with Dr. Nuno in the office in 1 week. A prescription for oral narcotics has been forwarded on to his pharmacy in anticipation of today's discharge. All questions were answered patient's satisfaction. Will arrange home health care to assist the patient at home. - Labs CBC & Chem 7: 06/28/24 07:34 06/27/24 11:48 Labs: Abnormal Lab Results - Last 24 Hours (Table) 06/27/24 06/27/24 06/27/24 Range/Units 11:48 11:48 19:53 WBC 11.48 H (4.50-10.00) 10*3/uL RBC 4.38 L (4.40-5.60) 10*6/uL Hgb (13.0-17.0) g/dL Hct (39.6-50.0) % Sodium 132 L (137-145) mmol/L Glucose 109 H (74-99) mg/dL POC Glucose (mg/dL) 124 H (70-110) mg/dL Total Protein 5.7 L (6.3-8.2) g/dL Albumin 3.2 L (3.5-5.0) g/dL 06/28/24 06/28/24 Range/Units 06:21 07:34 WBC (4.50-10.00) 10*3/uL RBC 4.30 L (4.40-5.60) 10*6/uL Hgb 12.7 L (13.0-17.0) g/dL Hct 38.7 L (39.6-50.0) % Sodium (137-145) mmol/L Glucose (74-99) mg/dL POC Glucose (mg/dL) 117 H (70-110) mg/dL Total Protein (6.3-8.2) g/dL Albumin (3.5-5.0) g/dL Assessment and Plan Assessment: Postop day #2 status post left femoral to popliteal bypass graft: Satisfactory progress. Plan: Stable for discharge.
[2024-06-28 09:47] LABS: African American GFR (CKD) >90 (>60 ml/min/1.73 sqM); Anion Gap 7 mmol/L; Blood Urea Nitrogen 9 mg/dL (9-20); Calcium 8.8 mg/dL (8.4-10.2); Carbon Dioxide 22 mmol/L (22-30); Chloride 102 mmol/L (98-107); Glucose 127 mg/dL (74-99); Non-African American GFR(CKD) >90 (>60 ml/min/1.73 sqM); Potassium 3.9 mmol/L (3.5-5.1); Sodium 131 mmol/L (137-145)
[2024-06-28 11:11] LABS: Glucose,Whole Blood 118 mg/dL (70-110)
[2024-06-28 12:37] VITALS: BP 152/65; PULSE 56; RESP 18; TEMP 97.9
--- NOTE | 2024-06-28 18:41 | P.DS ---
Providers Date of admission: 06/26/24 05:34 Expected date of discharge: 06/28/24 Attending physician: Karolina Hilliard DO Consults: 06/26/24 15:12 Consult Physician Routine Consulting Provider: Jackeline Costello Consult Reason/Comments: Medical management Do you want consulting provider notified?: Yes Primary care physician: Georgina Romo - Discharge Diagnosis(es) (1) Arterial occlusion, lower extremity Status: Acute Hospital Course: On the day of admission the patient was taken the operating room where left femoral to popliteal bypass graft was performed utilizing a polytetrafluoroethylene. Postoperatively the patient did develop the posterior tibial pulse and his preop symptoms resolved. He was seen by physical therapy and felt to be able to be discharged home safely from a physical therapy standpoint. His pain was well-controlled the remainder of hospital course was unremarkable. Procedures: Left femoral-popliteal bypass graft utilizing polytetrafluoroethylene. Patient Condition at Discharge: Good Plan - Discharge Summary Discharge Rx Participant: No New Discharge Prescriptions: New HYDROcodone/APAP 5-325MG [[place] 5-325] 1 each PO Q4HR PRN 3 Days #18 tab PRN Reason: Mild To Moderate Pain (1 - 6) Continue Clopidogrel [Plavix] 75 mg PO DAILY #30 tab Metoprolol Tartrate [Lopressor] 25 mg PO BID #60 tab Sacubitril/Valsartan [Entresto 24 mg-26 mg Tablet] 1 each PO BID metFORMIN HCL [Glucophage] 500 mg PO BID Apixaban [Eliquis] 5 mg PO BID #60 tab Atorvastatin [Lipitor] 40 mg PO HS #30 tab amLODIPine [Norvasc] 10 mg PO DAILY #30 tab Pantoprazole [Protonix] 40 mg PO AC-BRKFST #30 tab FLUoxetine HCL [PROzac] 20 mg PO DAILY #30 cap Losartan [Cozaar] 25 mg PO DAILY #30 tab Discharge Medication List Apixaban [Eliquis] 5 mg PO BID #60 tab 06/12/24 [Rx] Atorvastatin [Lipitor] 40 mg PO HS #30 tab 06/12/24 [Rx] Clopidogrel [Plavix] 75 mg PO DAILY #30 tab 06/12/24 [Rx] FLUoxetine HCL [PROzac] 20 mg PO DAILY #30 cap 06/12/24 [Rx] Losartan [Cozaar] 25 mg PO DAILY #30 tab 06/12/24 [Rx] Metoprolol Tartrate [Lopressor] 25 mg PO BID #60 tab 06/12/24 [Rx] Pantoprazole [Protonix] 40 mg PO AC-BRKFST #30 tab 06/12/24 [Rx] amLODIPine [Norvasc] 10 mg PO DAILY #30 tab 06/12/24 [Rx] Sacubitril/Valsartan [Entresto 24 mg-26 mg Tablet] 1 each PO BID 06/23/24 [History] metFORMIN HCL [Glucophage] 500 mg PO BID 06/23/24 [History] HYDROcodone/APAP 5-325MG [[place] 5-325] 1 each PO Q4HR PRN 3 Days #18 tab 06/27/24 [Rx] Follow up Appointment(s)/Referral(s): Karolina Rivers DO [STAFF PHYSICIAN] - 2 Weeks (Office closed at this time; please call [facility] on Sunday to schedule follow up appointment.) [facility], [NON-STAFF] - 1-2 Days ([facility] will follow up with you on discharge.) Georgina Romo MD [Primary Care Provider] - 1 Week (Office closed at this time; please call [facility] on Sunday to schedule follow up appointment.) Patient Instructions/Handouts: Femoropopliteal Bypass (DC) Activity/Diet/Wound Care/Special Instructions: Patient needs a walker at discharge to manage unsteady gait from peripheral arterial disease No driving for 2 weeks Avoid heavy lifting greater than 10 lbs , pushing, pulling, straining, until cleared by surgeon. Limit flights of stairs Sponge bath until left groin Prevena wound VAC removed. Ok to shower but no baths, pools, soaking in tubs until cleared by surgeon to avoid risk of infection. signs of infection ie: fever, rash, drainage from surgical site, swelling contact doctor or return to ER immediately. Heavy bleeding from surgical site apply firm direct pressure and return to ER. Do not attempt to drive self. low sodium/low fat diet Keep Prevena wound VAC in place to left groin until 07/02/2024, then may turn off and remove and throw in garbage Discussed with patient importance of smoking cessation. Continue smoking abstinence. Quit smoking hotline 1 800 quit-now given to patient. Discharge Disposition: HOME SELF-CARE
--- NOTE | 2024-07-02 18:22 | P.PN ---
Subjective Progress Note Date: 06/28/24 This is a pleasant 64-year-old male who was admitted under vascular surgery services and is status post left femoropopliteal bypass on 06/26/2024. Patient follows with Dr. Blue Elizabeth in the outpatient setting with a past medical history of atrial fibrillation, diabetes mellitus, DVT, hyperlipidemia, hypert ension, prostate disorder, sleep apnea and does not use a CPAP, vascular disorder with cardiomyopathy and PAD with significant varicose veins, anxiety, continued ongoing nicotine abuse and occasional alcohol use. Patient has been following with vascular surgery for quite some and was recently hospitalized in May with occlusion of the right common femoral artery graft and is status post angiogram. The surgical intervention was discussed and patient was hospitalized under vascular surgery with medical management on consult. Labs reviewed from this morning reveal a white count of 11.48, hemoglobin is stable at 13.1, sodium 132, potassium 4.2, BUN 14 with a creatinine of 1.08, blood sugars being monitored and well-controlled at this time and will continue current regimen. Patient was on heparin drip and has transition to Eliquis 5 mg twice daily last night per vascular surgery and is continued on Plavix. Patient did develop a small hematoma at the surgical site of the left calf area and is tender to touch with no active bleeding noted at this time. Recommend to monitor closely and patient is bedbound for today. 06/28/2024 Patient is stable for discharge home. He is status post left lower extremity femoropopliteal bypass with cryovein. He has a compression stocking on the left leg. Hematoma better. Blood pressure has normalized status post fluid bolus and he is not feeling any dizziness at this time. REVIEW OF SYSTEMS: CONSTITUTIONAL: No fever, no malaise, no fatigue. HEENT: No recent visual problems or hearing problems. Denied any sore throat. CARDIOVASCULAR: No chest pain, orthopnea, PND, no palpitations, no syncope. PULMONARY: No shortness of breath, no cough, no hemoptysis. GASTROINTESTINAL: No diarrhea, no nausea, no vomiting, no abdominal pain. NEUROLOGICAL: No headaches, no weakness, no numbness. PHYSICAL EXAMINATION: GENERAL: The patient is alert and oriented x3, not in any acute distress. Well developed, well nourished. Appears older than stated age HEENT: Pupils are round and equally reacting to light. EOMI. No scleral icterus. No conjunctival pallor. Normocephalic, atraumatic. No pharyngeal erythema. No thyromegaly. CARDIOVASCULAR: S1 and S2 present. No murmurs, rubs, or gallops. PULMONARY: Chest is clear to auscultation, no wheezing or crackles. ABDOMEN: Soft, nontender, nondistended, normoactive bowel sounds. No palpable organomegaly. MUSCULOSKELETAL: No joint swelling or deformity. Minimal calf swelling at the surgical site EXTREMITIES: No cyanosis, clubbing, or pedal edema. Positive pulses noted on the left lower extremity NEUROLOGICAL: Gross neurological examination did not reveal any focal deficits. Diffusely weak SKIN: No rashes. Assessment: Status post left lower extremity femoropopliteal bypass with CryoVein, postop day 1 secondary to severe peripheral artery disease Mild leukocytosis, WBC 11.48, likely reactive Hyponatremia with a sodium of 132 with mild dehydration History of DVT History of sleep apnea and does not use CPAP History of anxiety Hypertension Hyperlipidemia History of cardiomyopathy with most recent echo in May 2024 showing an EF of 50 to 55% with anteroapical and anterolateral apical mild hypokinesis with mildly increased septal wall thickness, mild mitral and tricuspid regurgitation and trace to mild aortic regurgitation History of atrial fibrillation maintained on anticoagulation which Eliquis is being resumed per vascular surgery History of severe peripheral artery disease with multiple interventions including revascularization in May History of coronary artery disease with previous stents Continued ongoing nicotine dependence GI prophylaxis DVT prophylaxis Full code Plan: Patient was admitted under vascular surgery services status post left femoropopliteal bypass with CryoVein on 06/26/2024. Eliquis has been resumed per vascular surgery along with Plavix and will continue Patient is bedbound today and will be evaluated by PT/OT therapy as patient attempted to get up and had extreme left leg pain with dizziness and hypotension, likely vasovagal and was given a 500 bolus and improved Patient does have a small hematoma at the surgical site which is being monitored and hemoglobin is stable with no active bleeding noted. Patient is a diabetic and blood sugars have been well-controlled and will continue with heart healthy consistent carb diet and sliding scale along with home medications. Adjust accordingly Recommend follow-up labs and monitor CBC Tobacco cessation was discussed extensively and will provide nicotine patch as needed Home medications reviewed and resumed as appropriate We will continue to follow with vascular surgery during hospitalization. Thank you kindly for this consultation. The impression and plan of care has been dictated by Kourtney Meneses Nurse Practitioner as directed. Dr. Pravin MD I have performed a history and examination and MDM of this patient, discussed the same with the dictator, and agree with the dictator's assessment and plan as written ,documented as a scribe. Based on total visit time, I have performed more than 50% of the visit. Objective - Vital Signs Vital signs: Vital Signs Temp 97.9 F 06/28/24 11:41 Pulse 56 L 06/28/24 11:41 Resp 18 06/28/24 11:41 BP 152/65 06/28/24 11:41 Pulse Ox 95 06/28/24 11:41 FiO2 Intake & Output 06/27/24 06/28/24 06/28/24 18:59 06:59 18:59 Intake Total 240 240 180 Output Total 1200 1000 600 Balance -960 -760 -420 Weight 81.5 kg Intake: Oral 240 240 180 Output: Gastric Drainage 0 Urine 1200 1000 600 Stool 0 Urine/Stool Mix 0 Emesis 0 Oral Regurgitation 0 Other 0 Other: Voiding Method Indwelling Catheter Urinal Urinal # Voids 0 2 # Bowel Movements 0 1 - Labs CBC & Chem 7: 06/28/24 07:34 06/28/24 07:34 Labs: Abnormal Lab Results - Last 24 Hours (Table) 06/27/24 06/28/24 06/28/24 Range/Units 19:53 06:21 07:34 RBC 4.30 L (4.40-5.60) 10*6/uL Hgb 12.7 L (13.0-17.0) g/dL Hct 38.7 L (39.6-50.0) % Sodium (137-145) mmol/L Glucose (74-99) mg/dL POC Glucose (mg/dL) 124 H 117 H (70-110) mg/dL 06/28/24 06/28/24 Range/Units 07:34 11:09 RBC (4.40-5.60) 10*6/uL Hgb (13.0-17.0) g/dL Hct (39.6-50.0) % Sodium 131 L (137-145) mmol/L Glucose 127 H (74-99) mg/dL POC Glucose (mg/dL) 118 H (70-110) mg/dL Assessment and Plan Time with Patient: Less than 30
--- NOTE | 2024-07-07 18:04 | CDI ---
Documentation Clarification Form Date: 07/07/2024 From: Marguerite Stock Contact via [employer] Admit Date: 06/26/2024 05:34:00 AM Patient Name: Mc Dangelo Visit Number: [id number] Discharge Date: 06/28/2024 01:52:00 PM ATTENTION: The Clinical Documentation Specialists (CDI) and [facility] Coding Staff appreciate your assistance in clarifying documentation. Please respond to the clarification below the line at the bottom and electronically sign. The CDI & [facility] Coding staff will review the response and follow-up if needed. Please note: Queries are made part of the Legal Health Record. If you have any questions, please contact the author of this message via ITS. Doctor/Provider: Karolina Hilliard Small hematoma at the surgical site is documented on the IM consult on 06/27 and IM PN on 06/27 and 06/28. Additional clarification is requested regarding the relationship, if any, that exists between the diagnosis and the procedure. History/Risk Factors: 64yo w/ a h/o DM, HLD, HTN, vascular d/o, nicotine abuse and a-fib on OAC presented for an elective LLE bypass. Patients Admitting Diagnosis: Se 4 peripheral arterial disease LLE, superficial femoral artery occlusive disease Post-Operative Diagnosis: Same Procedure performed 06/26: Femoral to below-knee popliteal bypass w/ CryoVein Clinical Indicators: IM consult on 06/27 noted, patient did develop a small hematoma at the surgical site of the left calf area is tender to touch with no active bleeding noted. Per the record, the pt was on a heparin gtt on 06/26 and was restarted on his home Eliquis on 06/26 and Plavix on 06/27 Treatment: monitoring What relationship, if any, exists between the diagnosis of hematoma and the procedure: [x ] is not clinically significant [ ] is clinically significant and not a complication of the procedure, it is 2 nd to the anticoagulation [ ] is clinically significant and a complication [ ] Other please specify [ ] Unable to determine (Template Last Revised: February 2024) MTDD
== END 2024-06-28 13:52 | disposition home or self-care (01) | DRG 253 ==
LOC: 2ORMAIN 05:34 → EDSTATUS 07:30 → 3SCARD 13:09
PROVIDERS: ADMIT Surgery; ATTEND Surgery
PROC: 041L0KL Bypass Left Femoral Artery to Popliteal Artery with Nonautologous Tissue Substitute, Open Approach (ICD-10-PCS; principal; 2024-06-26 07:30)
DX: E11.51 Type 2 diabetes mellitus with diabetic peripheral angiopathy without gangrene (principal); E87.1 Hypo-osmolality and hyponatremia; I42.9 Cardiomyopathy, unspecified; I48.91 Unspecified atrial fibrillation; E86.0 Dehydration; I70.292 Other atherosclerosis of native arteries of extremities, left leg; I10 Essential (primary) hypertension; I08.3 Combined rheumatic disorders of mitral, aortic and tricuspid valves; I70.222 Atherosclerosis of native arteries of extremities with rest pain, left leg; E78.5 Hyperlipidemia, unspecified; D72.829 Elevated white blood cell count, unspecified; G47.30 Sleep apnea, unspecified; I25.2 Old myocardial infarction; F17.210 Nicotine dependence, cigarettes, uncomplicated; I83.93 Asymptomatic varicose veins of bilateral lower extremities; I25.10 Atherosclerotic heart disease of native coronary artery without angina pectoris; I99.8 Other disorder of circulatory system; N40.0 Benign prostatic hyperplasia without lower urinary tract symptoms; Z79.01 Long term (current) use of anticoagulants; Z79.02 Long term (current) use of antithrombotics/antiplatelets; Z79.84 Long term (current) use of oral hypoglycemic drugs; Z79.899 Other long term (current) drug therapy; Z82.49 Family history of ischemic heart disease and other diseases of the circulatory system; Z86.718 Personal history of other venous thrombosis and embolism; Z95.5 Presence of coronary angioplasty implant and graft; Z96.641 Presence of right artificial hip joint; Z95.828 Presence of other vascular implants and grafts; Z79.82 Long term (current) use of aspirin
CPT/HCPCS: 80048; 80053; 83036; 83735; 85027; 85610; 86850; 86900; 86901; 94760

== ENCOUNTER 2024-06-28 19:37 | Emergency (ER) | payer MEDICARE ==
[2024-06-28 19:42] VITALS: PULSE 65; TEMP 97.3
--- NOTE | 2024-06-28 20:05 | ED ---
Recheck HPI - General Chief Complaint: Extremity Injury, Lower Stated Complaint: L Calf Issue/Post op Time Seen by Provider: 06/28/24 19:48 Source: patient, RN notes reviewed, old records reviewed Mode of arrival: ambulatory Limitations: no limitations - History of Present Illness Initial Comments: This is a 64-year-old male to the ER for evaluation. Patient is a postop bypass femoropopliteal bypass patient by vascular surgery patient is having some bleeding from his incision and wound, this has been a persistent issue since discharge with no worsening symptoms no lightheadedness dizziness or weakness and no new complaints no new pain MD Complaint: wound re-check -: days(s) Returns Today for: wound recheck, persistent/worsening pain related to initial visit Symptoms Since Prior Visit: worsening pain Associated Symptoms: none Treatments Prior to Arrival: dressings - Related Data Home Medications Medication Instructions Recorded Confirmed Sacubitril/Valsartan [Entresto 24 1 each PO BID 06/23/24 06/26/24 mg-26 mg Tablet] metFORMIN HCL [Glucophage] 500 mg PO BID 06/23/24 06/26/24 Previous Rx's Medication Instructions Recorded Apixaban [Eliquis] 5 mg PO BID #60 tab 06/12/24 Atorvastatin [Lipitor] 40 mg PO HS #30 tab 06/12/24 Clopidogrel [Plavix] 75 mg PO DAILY #30 tab 06/12/24 FLUoxetine HCL [PROzac] 20 mg PO DAILY #30 cap 06/12/24 Losartan [Cozaar] 25 mg PO DAILY #30 tab 06/12/24 Metoprolol Tartrate [Lopressor] 25 mg PO BID #60 tab 06/12/24 Pantoprazole [Protonix] 40 mg PO AC-BRKFST #30 tab 06/12/24 amLODIPine [Norvasc] 10 mg PO DAILY #30 tab 06/12/24 HYDROcodone/APAP 5-325MG [[place] 1 each PO Q4HR PRN 3 Days #18 tab 06/27/24 5-325] Allergies Allergy/AdvReac Type Severity Reaction Status Date / Time No Known Allergies Allergy Verified 06/28/24 19:42 Review of Systems ROS Statement: Those systems with pertinent positive or pertinent negative responses have been documented in the HPI. ROS Other: All systems not noted in ROS Statement are negative. Past Medical History Past Medical History: Atrial Fibrillation, Diabetes Mellitus, Deep Vein Thrombosis (DVT), Hyperlipidemia, Hypertension, Myocardial Infarction ([place]), Prostate Disorder, Sleep Apnea/CPAP/BIPAP, Vascular Disorder Additional Past Medical History / Comment(s): L femoral artery occlusion. Hx "mini heart attack/scarring"-pt states per heart ultrasound report from . Cardiomyopathy. PAD. Varicose veins. Enlarged prostate. No CPAP use. Hx of "internal bleeding" after surgery, requiring blood transfusion. Last Myocardial Infarction Date:: pt unsure of exact date History of Any Multi-Drug Resistant Organisms: MRSA Date of last positivie culture/infection: 07/05/21 MDRO Source:: Left Ankle Past Surgical History: Joint Replacement Additional Past Surgical History / Comment(s): Stent to R leg, vein graft R leg, R femoral bypass, 4 stents to L leg-currently occluded, R hip replacement. B/L lower extremity angiogram 05/2024. Past Anesthesia/Blood Transfusion Reactions: No Reported Reaction Additional Past Anesthesia/Blood Transfusion Reaction / Comment(s): Hx of blood tranfusion- no known reactions. Date of Last Stent Placement:: Unknown Past Psychological History: Anxiety Smoking Status: Current some day smoker Past Alcohol Use History: Daily Past Drug Use History: None Reported - Past Family History Mother Family Medical History: Diabetes Mellitus, Deep Vein Thrombosis (DVT), Hypertension, Myocardial Infarction ([place]) Additional Family Medical History / Comment(s): Mother had blood clot in L leg/foot, L foot amputation due to gangrene. Passed from heart attack. Family history of varicose veins. Father Family Medical History: CVA/TIA, Myocardial Infarction ([place]) General Exam Limitations: no limitations General appearance: alert, in no apparent distress Head exam: Present: atraumatic, normocephalic, normal inspection Eye exam: Present: normal appearance, PERRL, EOMI. Absent: scleral icterus, conjunctival injection, periorbital swelling ENT exam: Present: normal exam, mucous membranes moist Neck exam: Present: normal inspection. Absent: tenderness, meningismus, lymphadenopathy Respiratory exam: Present: normal lung sounds bilaterally. Absent: respiratory distress, wheezes, rales, rhonchi, stridor Cardiovascular Exam: Present: regular rate, normal rhythm, normal heart sounds. Absent: systolic murmur, diastolic murmur, rubs, gallop, clicks GI/Abdominal exam: Present: soft, normal bowel sounds. Absent: distended, tenderness, guarding, rebound, rigid Extremities exam: Present: normal inspection, full ROM, normal capillary refill. Absent: tenderness, pedal edema, joint swelling, calf tenderness Back exam: Present: normal inspection Neurological exam: Present: alert, oriented X3, CN II-XII intact Psychiatric exam: Present: normal affect, normal mood Skin exam: Present: warm, dry, intact, normal color. Absent: rash Course Vital Signs 06/28/24 06/28/24 19:39 20:47 Temperature 97.3 F L Pulse Rate 65 65 Respiratory 19 20 Rate Blood Pressure 156/82 142/77 O2 Sat by Pulse 99 97 Oximetry - Reevaluation(s) Reevaluation #1: Medical records reviewed Reevaluation #2: Patient's symptoms improved, bleeding stopped Reevaluation #3: Patient informed of results questions answered Reevaluation #4: Was pt. sent in by a medical professional or institution (, PA, CLOTH CLASSER, urgent care, hospital, or group home...) When possible be specific @ -no Did you speak to anyone other than the patient for history (EMS, parent, family, police, friend...)? What history was obtained from this source @ -no Did you review nursing and triage notes (agree or disagree)? Why? @ -agree Are old charts reviewed (outside hosp., previous admission, EMS record, old EKG, old radiological studies, urgent care reports/EKG's, group home records)? Report findings @ -yes Differential Diagnosis (chest pain, altered mental status, abdominal pain women, abdominal pain men, vaginal bleeding, weakness, fever, dyspnea, syncope, heada rai, dizziness, GI bleed, back pain, seizure, CVA, palpatations, mental health, musculoskeletal)? @ -prior EKG interpreted by me (3pts min.). @ -no X-rays interpreted by me (1pt min.). @ -no CT interpreted by me (1pt min.). @ -no U/S interpreted by me (1pt. min.). @ -no What testing was considered but not performed or refused? (CT, X-rays, U/S, labs)? Why? @ -none What meds were considered but not given or refused? Why? @ -none Did you discuss the management of the patient with other professionals (professionals i.e. Dr., PA, CLOTH CLASSER, lab, RT, psych nurse, social work instructor, senior investment analyst, teacher, human resource officer, behavioral health case manager)? Give summary @ -no Was smoking cessation discussed for >3mins.? @ -no Was critical care preformed (if so, how long)? @ -no Were there social determinants of health that impacted care today? How? (Homelessness, low income, unemployed, alcoholism, drug addiction, transportation, low edu. Level, literacy, decrease access to med. care, senior care, rehab)? @ -none Was there de-escalation of care discussed even if they declined (Discuss DNR or withdrawal of care, Hospice)? DNR status @ -no What co-morbidities impacted this encounter? (DM, HTN, Smoking, COPD, CAD, Cancer, CVA, ARF, Chemo, Hep., AIDS, mental health diagnosis, sleep apnea, morbid obesity)? @ -none Was patient admitted / discharged? Hospital course, mention meds given and route, prescriptions, significant lab abnormalities, going to OR and other pertinent info. @ -64 male continuing to have postoperative bleeding patient has known hematoma at site with minimal blood leaking from incision, hematoma will continue to evacuate patient is in no acute distress feels well pain is controlled and he can be discharged home to follow-up as an outpatient Discharge Undiagnosed new problem with uncertain prognosis? @ -no Drug Therapy requiring intensive monitoring for toxicity (Heparin, Nitro, Insulin, Cardizem)? @ -no Were any procedures done? @ -no Diagnosis/symptom? @ -Postoperative bleeding with from hematoma post Acute, or Chronic, or Acute on Chronic? @ -Acute Uncomplicated (without systemic symptoms) or Complicated (systemic symptoms)? @ -Complicated Side effects of treatment? @ -no Exacerbation, Progression, or Severe Exacerbation? @ -exacerbation Poses a threat to life or bodily function? How? (Chest pain, [place], [place], pneumonia, PE, COPD, DKA, ARF, appy, cholecystitis, CVA, Diverticulitis, Homicidal, Suicidal, threat to staff... and all critical care pts) @ -yes with postoperative hemorrhage - Consultations Consultation #1: Spoke with on-call vascular surgery who urged this patient to continue outpatient follow-up secondary to hematoma Medical Decision Making - Medical Decision Making 64 male continuing to have postoperative bleeding patient has known hematoma at site with minimal blood leaking from incision, hematoma will continue to evacuate patient is in no acute distress feels well pain is controlled and he can be discharged home to follow-up as an outpatient Disposition Clinical Impression: Postoperative hemorrhage Disposition: HOME SELF-CARE Condition: Fair Instructions (If sedation given, give patient instructions): Postoperative Bleeding (ED) Is patient prescribed a controlled substance at d/c from ED?: No Referrals: Georgina Romo MD [Primary Care Provider] - 1-2 days Time of Disposition: 20:20
[2024-06-28] MEDS: HYDROmorphone 1 MG/ML 1 ML SYRINGE IM STA (20:23)
[2024-06-28 20:55] VITALS: BP 142/77; RESP 20
== END 2024-06-28 20:55 | disposition home or self-care (01) ==
LOC: EC 19:37
DX: L76.22 Postprocedural hemorrhage of skin and subcutaneous tissue following other procedure (principal); F17.200 Nicotine dependence, unspecified, uncomplicated
CPT/HCPCS: 99283; 96372; J1171

== ENCOUNTER 2024-07-28 16:47 | Inpatient (IN) | payer MEDICARE ==
[2024-07-28] MEDS ORDERED: VANCOMYCIN IV PER PHARMACY 1 EACH MISC MISCELLANE PRN (17:45)
[2024-07-28] MEDS: HYDROmorphone 1 MG/ML 1 ML SYRINGE IVP STA (18:04)
[2024-07-28] MEDS: VANCOMYCIN 1,500 MG in SODIUM CHLORIDE 0.9% 500 ML 500 ML IVPB STA (18:05)
[2024-07-28] MEDS ORDERED: NALOXONE 0.4 MG/ML 1 ML VIAL IV PRN (18:08)
[2024-07-28] MEDS ORDERED: ACETAMINOPHEN TAB 325 MG TAB PO PRN (18:08)
[2024-07-28] MEDS: CEFEPIME 2 GM in SODIUM CHLORIDE 0.9% 100 ML IVPB STA (18:08)
[2024-07-28 18:17] LABS: Basophils % (A) 0.4 %; HCT 41.3 % (39.6-50.0); HGB 13.8 g/dL (13.0-17.0); Lymphocytes % (A) 4.2 %; MCH 29.8 pg (27.0-32.0); MCHC 33.4 g/dL (32.0-37.0); MCV 89.2 fL (80.0-97.0); Mean Platelet Volume 10.3 fL (9.5-12.2); Monocytes % (A) 5.9 %; Neutrophils # (A) 20.13 10*3/uL (1.80-7.70); Neutrophils % (A) 88.5 %; Platelet Count 248 10*3/uL (140-440); RBC 4.63 10*6/uL (4.40-5.60); RDW 17.7 % (11.5-14.5); WBC 22.72 10*3/uL (4.50-10.00)
[2024-07-28 18:18] LABS: Basophils # (A) 0.09 10*3/uL (0.00-0.10); Lymphocytes # (A) 0.95 10*3/uL (0.90-5.00); Monocytes # (A) 1.33 10*3/uL (0.20-1.00)
--- NOTE | 2024-07-28 18:23 | ED ---
Extremity Problem HPI - General Chief complaint: Extremity Problem,Nontraumatic Stated complaint: Post-op issue L leg Time Seen by Provider: 07/28/24 17:18 Source: patient Mode of arrival: ambulatory Limitations: no limitations - History of Present Illness Initial comments: 64-year-old male with history of diabetes, neuropathy, A-fib, hyperlipidemia, hypertension, CAD, PAD presenting with chief complaint of pain and bleeding at his incision site. Patient had a femoral to popliteal bypass on the left side on 06/[address] Nuno. Patient reports that since then he has had issues with his healing process. He has had delayed healing and was admitted here on 07/09 due to postoperative pain and bleeding from the site and a postoperative hematoma. He was seen by his surgeon here in the hospital and in the office. He was on 5 days of Keflex after his discharge. He reports that he has been having continued pain. Denies any injury or trauma. He reports that he has bleeding and serosanginous discharge which worsens when he tries to bear weight on the leg. Today he is noting that there is now increased redness to his incision site as well. No fever or chills. - Related Data Home Medications Medication Instructions Recorded Confirmed Sacubitril/Valsartan [Entresto 24 1 tab PO BID 06/23/24 07/10/24 mg-26 mg Tablet] metFORMIN HCL [Glucophage] 500 mg PO BID 06/23/24 07/10/24 HYDROcodone/APAP 5-325MG [[place] 1 tab PO Q4HR PRN 07/10/24 07/10/24 5-325] Previous Rx's Medication Instructions Recorded Apixaban [Eliquis] 5 mg PO BID #60 tab 06/12/24 Atorvastatin [Lipitor] 40 mg PO HS #30 tab 06/12/24 Clopidogrel [Plavix] 75 mg PO DAILY #30 tab 06/12/24 FLUoxetine HCL [PROzac] 20 mg PO DAILY #30 cap 06/12/24 Losartan [Cozaar] 25 mg PO DAILY #30 tab 06/12/24 Metoprolol Tartrate [Lopressor] 25 mg PO BID #60 tab 06/12/24 Pantoprazole [Protonix] 40 mg PO AC-BRKFST #30 tab 06/12/24 amLODIPine [Norvasc] 10 mg PO DAILY #30 tab 06/12/24 Cephalexin [Keflex] 500 mg PO Q12HR 5 Days #10 cap 07/10/24 Gabapentin [Neurontin] 300 mg PO TID 30 Days #90 cap 07/10/24 Allergies Allergy/AdvReac Type Severity Reaction Status Date / Time No Known Allergies Allergy Verified 07/28/24 17:16 Review of Systems ROS Statement: Those systems with pertinent positive or pertinent negative responses have been documented in the HPI. ROS Other: All systems not noted in ROS Statement are negative. Past Medical History Past Medical History: Atrial Fibrillation, Diabetes Mellitus, Deep Vein Thrombosis (DVT), Hyperlipidemia, Hypertension, Myocardial Infarction (SD), Prostate Disorder, Sleep Apnea/CPAP/BIPAP, Vascular Disorder Additional Past Medical History / Comment(s): L femoral artery occlusion. Hx "mini heart attack/scarring"-pt states per heart ultrasound report from . Cardiomyopathy. PAD. Varicose veins. Enlarged prostate. No CPAP use. Hx of "internal bleeding" after surgery, requiring blood transfusion. Last Myocardial Infarction Date:: pt unsure of exact date History of Any Multi-Drug Resistant Organisms: MRSA Date of last positivie culture/infection: 07/05/21 MDRO Source:: Left Ankle Past Surgical History: Joint Replacement Additional Past Surgical History / Comment(s): Stent to R leg, vein graft R leg, R femoral bypass, 4 stents to L leg-currently occluded, R hip replacement. B/L lower extremity angiogram 05/2024. Past Anesthesia/Blood Transfusion Reactions: No Reported Reaction Additional Past Anesthesia/Blood Transfusion Reaction / Comment(s): Hx of blood tranfusion- no known reactions. Date of Last Stent Placement:: Unknown Past Psychological History: Anxiety Smoking Status: Current some day smoker Past Alcohol Use History: Daily Past Drug Use History: None Reported - Past Family History Mother Family Medical History: Diabetes Mellitus, Deep Vein Thrombosis (DVT), Hypertension, Myocardial Infarction (SD) Additional Family Medical History / Comment(s): Mother had blood clot in L leg/foot, L foot amputation due to gangrene. Passed from heart attack. Family history of varicose veins. Father Family Medical History: CVA/TIA, Myocardial Infarction ([place]) General Exam Limitations: no limitations General appearance: alert, in no apparent distress Head exam: Present: atraumatic, normocephalic, normal inspection Eye exam: Present: normal appearance, EOMI Neck exam: Present: normal inspection. Absent: meningismus Respiratory exam: Absent: respiratory distress Cardiovascular Exam: Present: regular rate Left Lower Leg exam: Present: full ROM, tenderness, swelling, erythema Neurological exam: Present: alert, oriented X3 Psychiatric exam: Present: normal affect, normal mood Course Vital Signs 07/28/24 07/28/24 07/28/24 17:10 18:55 19:26 Temperature 98.8 F 98.3 F 98.2 F Pulse Rate 91 77 72 Respiratory 18 18 18 Rate Blood Pressure 119/68 142/71 132/73 O2 Sat by Pulse 100 94 L 97 Oximetry Medical Decision Making - Medical Decision Making Was pt. sent in by a medical professional or institution (, PA, UNIFORMS SALES REPRESENTATIVE, urgent care, hospital, or half-way...) When possible be specific @ -No Did you speak to anyone other than the patient for history (EMS, parent, family, police, friend...)? What history was obtained from this source @ -No Did you review nursing and triage notes (agree or disagree)? Why? @ -I reviewed and agree with nursing and triage notes Were old charts reviewed (outside hosp., previous admission, EMS record, old EKG, old radiological studies, urgent care reports/EKG's, half-way records)? Report findings @ -Reviewed the patient's most recent admission on 07/09 Differential Diagnosis (chest pain, altered mental status, abdominal pain women, abdominal pain men, vaginal bleeding, weakness, fever, dyspnea, syncope, headache, dizziness, GI bleed, back pain, seizure, CVA, palpatations, mental health, musculoskeletal)? @ -Differential Musculoskeletal Muscular strain, contusion, ligament sprain, fracture, arthritis, septic arthritis, bursitis, cellulitis, muscle spasm, nerve compression, DVT, arterial occlusion, herpes zoster, electrolyte abnormality, tumor.... This is not meant to be in all inclusive list EKG interpreted by me (3pts min.). @ -As above X-rays interpreted by me (1pt min.). @ -None done CT interpreted by me (1pt min.). @ -None done U/S interpreted by me (1pt. min.). @ -None done What testing was considered but not performed or refused? (CT, X-rays, U/S, labs)? Why? @ -None What meds were considered but not given or refused? Why? @ -None Did you discuss the management of the patient with other professionals (professionals i.e. , PA, UNIFORMS SALES REPRESENTATIVE, lab, RT, psych nurse, social work professor, dialer, teacher, landing signal officer, pillowcase folder)? Give summary @ -Spoke with rayshawn Foley from [facility] who accepts admission Was smoking cessation discussed for >3mins.? @ -No Was critical care preformed (if so, how long)? @ -No Were there social determinants of health that impacted care today? How? (Homelessness, low income, unemployed, alcoholism, drug addiction, transportation, low edu. Level, literacy, decrease access to med. care, fci, rehab)? @ -No Was there de-escalation of care discussed even if they declined (Discuss DNR or withdrawal of care, Hospice)? DNR status @ -No What co-morbidities impacted this encounter? (DM, HTN, Smoking, COPD, CAD, Cancer, CVA, ARF, Chemo, Hep., AIDS, mental health diagnosis, sleep apnea, morbid obesity)? @ -None Was patient admitted / discharged? Hospital course, mention meds given and route, prescriptions, significant lab abnormalities, going to OR and other pertinent info. @ -64-year-old male presenting with chief complaint of pain, swelling, bleeding, and redness to his surgical site on the left lower leg. He had a vascular bypass surgery to the left lower leg back in June. He has had poor healing. He reports that when he stands on the leg he has bleeding and serosanguineous discharge. He was admitted on 07/09 for this complaint, he was found to have a postoperative hematoma, he has followed up with his surgeon since then has had no plans for any intervention. He comes in today with complaints of pain. On examination there is redness surrounding his incision site which he reports is new. No fever or chills. Given the patient's poor healing since his surgery and his risk factors I believe it would be in his best interest to be admitted for observation and IV antibiotics. Started on vancomycin and cefepime. Vascular surgery is consulted. Patient is agreeable with this plan. I discussed this case with my attending Dr. Rizo Undiagnosed new problem with uncertain prognosis? @ -No Drug Therapy requiring intensive monitoring for toxicity (Heparin, Nitro, Insulin, Cardizem)? @ -No Were any procedures done? @ -No Diagnosis/symptom? @ -Cellulitis Acute, or Chronic, or Acute on Chronic? @ -Acute Uncomplicated (without systemic symptoms) or Complicated (systemic symptoms)? @ -Complicated Side effects of treatment? @ -No Exacerbation, Progression, or Severe Exacerbation? @ -No Poses a threat to life or bodily function? How? (Chest pain, [place], SD, pneumonia, PE, COPD, DKA, ARF, appy, cholecystitis, CVA, Diverticulitis, Homicidal, Suicidal, threat to staff... and all critical care pts) @ -yes - Lab Data Result diagrams: 07/28/24 18:01 07/28/24 18:01 Lab Results 07/28/24 07/28/24 07/28/24 Range/Units 18:01 18:01 18:01 WBC 22.72 H (4.50-10.00) 10*3/uL RBC 4.63 (4.40-5.60) 10*6/uL Hgb 13.8 (13.0-17.0) g/dL Hct 41.3 (39.6-50.0) % MCV 89.2 (80.0-97.0) fL MCH 29.8 (27.0-32.0) pg MCHC 33.4 (32.0-37.0) g/dL Plt Count 248 (140-440) 10*3/uL MPV 10.3 (9.5-12.2) fL Immature Gran % (Auto) 1.0 % Neutrophils % 88.5 % Lymphocytes % 4.2 % Monocytes % 5.9 % Eosinophils % 0.0 % Basophils % 0.4 % Immature Gran # 0.22 H (0.00-0.04) 10*3/uL Neutrophils # 20.13 H (1.80-7.70) 10*3/uL Lymphocytes # 0.95 (0.90-5.00) 10*3/uL Monocytes # 1.33 H (0.20-1.00) 10*3/uL Eosinophils # 0.00 L (0.04-0.35) 10*3/uL Basophils # 0.09 (0.00-0.10) 10*3/uL Sodium 130 L (137-145) mmol/L Potassium 4.3 (3.5-5.1) mmol/L Chloride 98 (98-107) mmol/L Carbon Dioxide 16 L (22-30) mmol/L Anion Gap 16 mmol/L BUN 14 (9-20) mg/dL Creatinine 1.41 H (0.66-1.25) mg/dL Est GFR (CKD-EPI)AfAm 61 (>60 ml/min/1.73 sqM) Est GFR (CKD-EPI)NonAf 53 (>60 ml/min/1.73 sqM) Glucose 98 (74-99) mg/dL Plasma Lactic Acid Juancarlos 2.9 H* (0.7-2.0) mmol/L Calcium 9.5 (8.4-10.2) mg/dL Total Bilirubin 1.0 (0.2-1.3) mg/dL AST 30 (17-59) U/L ALT 23 (4-49) U/L Alkaline Phosphatase 103 (38-126) U/L Total Protein 7.1 (6.3-8.2) g/dL Albumin 4.3 (3.5-5.0) g/dL Disposition Clinical Impression: Cellulitis Disposition: ADMITTED IP TO THIS [facility] Condition: Fair Time of Disposition: 18:00
[2024-07-28 18:31] LABS: ALT 23 U/L (4-49); AST 30 U/L (17-59); African American GFR (CKD) 61 (>60 ml/min/1.73 sqM); Albumin 4.3 g/dL (3.5-5.0); Alkaline Phosphatase 103 U/L (38-126); Anion Gap 16 mmol/L; Blood Urea Nitrogen 14 mg/dL (9-20); Calcium 9.5 mg/dL (8.4-10.2); Carbon Dioxide 16 mmol/L (22-30); Chloride 98 mmol/L (98-107); Glucose 98 mg/dL (74-99); Non-African American GFR(CKD) 53 (>60 ml/min/1.73 sqM); Potassium 4.3 mmol/L (3.5-5.1); Sodium 130 mmol/L (137-145); Total Protein 7.1 g/dL (6.3-8.2)
[2024-07-28] MEDS: SODIUM CHLORIDE 0.9% 1,000 ML IV ONE (18:54)
[2024-07-28] MEDS: KETOROLAC 15 MG/ML 1 ML VIAL IVP PRN (20:23)
[2024-07-28] MEDS: SODIUM CHLORIDE 0.9% 1,000 ML IV SCH (20:27)
[2024-07-28 20:52] LABS: Glucose,Whole Blood 116 mg/dL (70-110)
[2024-07-28] MEDS ORDERED: DEXTROSE 50% SYRINGE 50 ML IVP PRN ×2 (22:33)
[2024-07-29] MEDS: HYDROmorphone 1 MG/ML 1 ML SYRINGE IVP PRN (00:05)
[2024-07-29 04:43] LABS: African American GFR (CKD) 58 (>60 ml/min/1.73 sqM); Non-African American GFR(CKD) 51 (>60 ml/min/1.73 sqM)
[2024-07-29 06:10] LABS: Glucose,Whole Blood 128 mg/dL (70-110)
[2024-07-29] MEDS: INSULIN LISPRO (HumaLOG) 100 UNIT/ML 10 mL VL SQ SCH (06:28)
[2024-07-29] MEDS: VANCOMYCIN 1,500 MG in SODIUM CHLORIDE 0.9% 500 ML 500 ML IVPB SCH (06:33)
[2024-07-29] MEDS: PANTOPRAZOLE 40 MG TABLET PO SCH (06:33)
[2024-07-29] MEDS: METOPROLOL TARTRATE 25 MG TAB PO SCH (08:40)
[2024-07-29] MEDS: amLODIPine 10 MG TAB PO SCH (08:40)
[2024-07-29] MEDS: LOSARTAN 25 MG TAB PO SCH (08:40)
[2024-07-29] MEDS: FLUoxetine HCL 20 MG CAP PO SCH (08:40)
[2024-07-29] MEDS ORDERED: APIXABAN 5 MG TAB PO SCH (09:00)
[2024-07-29] MEDS ORDERED: CLOPIDOGREL 75 MG TAB PO SCH (09:00)
--- NOTE | 2024-07-29 10:41 | P.GSCN ---
History of Present Illness Consult date: 07/29/24 Reason for Consult: Concern for infection of incision Requesting physician: Priyanka Morales History of present illness: This is a pleasant 64-year-old male with known peripheral arterial disease and known to vascular surgery who recently underwent a femoral to below-knee popliteal bypass with CryoVein on 06/26/2024. Patient had hematoma at lower incision Site was recently seen and evaluated in the emergency department on 07/10/2024 and cleared for discharge by vascular surgery. Apparently patient has been doing yard work and feels that maybe he has overdone it he had concerned that he felt a pulling sensation in his left calf near his incision states that he started having a little increased swelling and his incision had opened. He also states his dog recently had 8 puppies and he has been trying to manage them. It has been having significant drainage and redness, he was concerned that he may have an infection. Vascular surgery was consulted for evaluation of lower extremity wound. Patient denies any fevers or chills. He states that he has had mostly like a blood-tinged drainage. Patient was noted to have leukocytosis with a WBC of 22 on admission with a lactic acid of 2.9 now improved. He has been started on cefepime and vancomycin in the emergency department. He remains on vancomycin. Wound cultures were obtained and currently pending. Overall left lower extremity pain has improved. Lower extremity has been warm to the touch. Denies any shortness of breath or chest pain. Review of Systems A 14 point review systems was completed all pertinent positives and negatives as stated in the HPI. Past Medical History Past Medical History: Atrial Fibrillation, Diabetes Mellitus, Deep Vein Thrombosis (DVT), Hyperlipidemia, Hypertension, Myocardial Infarction ([place]), Prostate Disorder, Sleep Apnea/CPAP/BIPAP, Vascular Disorder Additional Past Medical History / Comment(s): L femoral artery occlusion. Hx "mini heart attack/scarring"-pt states per heart ultrasound report from . Cardiomyopathy. PAD. Varicose veins. Enlarged prostate. No CPAP use. Hx of "internal bleeding" after surgery, requiring blood transfusion. Abdominal Aortic Aneurysm- not operable 1.3 cm Last Myocardial Infarction Date:: pt unsure of exact date History of Any Multi-Drug Resistant Organisms: MRSA Year Discovered:: 07/05/21 MDRO Source:: Left Ankle Past Surgical History: Joint Replacement Additional Past Surgical History / Comment(s): Stent to R leg, vein graft R leg, R femoral bypass, 4 stents to L leg-currently occluded, R hip replacement. B/L lower extremity angiogram 05/2024. Past Anesthesia/Blood Transfusion Reactions: No Reported Reaction Additional Past Anesthesia/Blood Transfusion Reaction / Comm: Hx of blood tranfusion- no known reactions. Date of Last Stent Placement:: Unknown Past Psychological History: Anxiety Additional Psychological History / Comment(s): Takes Prozac daily Smoking Status: Former smoker Past Alcohol Use History: Daily Additional Past Alcohol Use History / Comment(s): Has been smoking for 30 yrs, has not smoked since 06/09/24. Was smoking 1 ppd. Drinks 2-3 beers daily Past Drug Use History: None Reported - Past Family History Mother Family Medical History: Diabetes Mellitus, Deep Vein Thrombosis (DVT), Hypertension, Myocardial Infarction ([place]) Additional Family Medical History / Comment(s): Mother had blood clot in L leg/foot, L foot amputation due to gangrene. Passed from heart attack. Family history of varicose veins. Father Family Medical History: CVA/TIA, Myocardial Infarction ([place]) Medications and Allergies Home Medications Medication Instructions Recorded Confirmed Type Apixaban [Eliquis] 5 mg PO BID #60 tab 06/12/24 07/28/24 Rx Atorvastatin [Lipitor] 40 mg PO HS #30 tab 06/12/24 07/28/24 Rx Clopidogrel [Plavix] 75 mg PO DAILY #30 tab 06/12/24 07/28/24 Rx FLUoxetine HCL [PROzac] 20 mg PO DAILY #30 cap 06/12/24 07/28/24 Rx Losartan [Cozaar] 25 mg PO DAILY #30 tab 06/12/24 07/28/24 Rx Metoprolol Tartrate [Lopressor] 25 mg PO BID #60 tab 06/12/24 07/28/24 Rx Pantoprazole [Protonix] 40 mg PO AC-BRKFST #30 tab 06/12/24 07/28/24 Rx amLODIPine [Norvasc] 10 mg PO DAILY #30 tab 06/12/24 07/28/24 Rx Sacubitril/Valsartan [Entresto 24 1 tab PO BID 06/23/24 07/28/24 History mg-26 mg Tablet] metFORMIN HCL [Glucophage] 500 mg PO BID 06/23/24 07/28/24 History HYDROcodone/APAP 5-325MG [[place] 1 tab PO Q4HR PRN 07/10/24 07/28/24 History 5-325] Cephalexin [Keflex] 500 mg PO DIRECTED 07/28/24 07/28/24 History Gabapentin [Neurontin] 300 mg PO DIRECTED 07/28/24 07/28/24 History Allergies Allergy/AdvReac Type Severity Reaction Status Date / Time No Known Allergies Allergy Verified 07/28/24 20:20 Surgical - Exam Vital Signs Temp Pulse Resp BP Pulse Ox 98.8 F 91 18 119/68 100 07/28/24 17:10 07/28/24 17:10 07/28/24 17:10 07/28/24 17:10 07/28/24 17:10 General appearance: The patient is alert, oriented, appears in no acute distress. HET: Head is normocephalic and atraumatic. Pupils are equal and reactive. Neck: Supple. Heart: Regular. Lungs: Equal expansion, normal respiratory effort. Abdomen: Soft, nontender, nondistended. Extremities: Left lower extremity patent bypass, palpable PT pulse. Lower extremity warm to the touch with good capillary refill. Sensorimotor intact. Left calf medial incision with areas of dehiscence and serosanguineous drainage. Surrounding erythema. Neurological: Alert and oriented x 3. Results - Labs 07/28/24 18:01 07/29/24 03:22 Abnormal Lab Results - Last 24 Hours (Table) 07/28/24 07/28/24 07/28/24 Range/Units 18:01 18:01 18:01 WBC 22.72 H (4.50-10.00) 10*3/uL Immature Gran # 0.22 H (0.00-0.04) 10*3/uL Neutrophils # 20.13 H (1.80-7.70) 10*3/uL Monocytes # 1.33 H (0.20-1.00) 10*3/uL Eosinophils # 0.00 L (0.04-0.35) 10*3/uL Sodium 130 L (137-145) mmol/L Carbon Dioxide 16 L (22-30) mmol/L Creatinine 1.41 H (0.66-1.25) mg/dL POC Glucose (mg/dL) (70-110) mg/dL Plasma Lactic Acid Juancarlos 2.9 H* (0.7-2.0) mmol/L 07/28/24 07/29/24 07/29/24 Range/Units 20:51 03:22 06:08 WBC (4.50-10.00) 10*3/uL Immature Gran # (0.00-0.04) 10*3/uL Neutrophils # (1.80-7.70) 10*3/uL Monocytes # (0.20-1.00) 10*3/uL Eosinophils # (0.04-0.35) 10*3/uL Sodium (137-145) mmol/L Carbon Dioxide (22-30) mmol/L Creatinine 1.46 H (0.66-1.25) mg/dL POC Glucose (mg/dL) 116 H 128 H (70-110) mg/dL Plasma Lactic Acid Juancarlos (0.7-2.0) mmol/L Diabetes panel 07/28/24 07/29/24 07/29/24 Range/Units 18:01 03:22 03:22 Sodium 130 L (137-145) mmol/L Potassium 4.3 (3.5-5.1) mmol/L Chloride 98 (98-107) mmol/L Carbon Dioxide 16 L (22-30) mmol/L BUN 14 (9-20) mg/dL Creatinine 1.41 H 1.46 H (0.66-1.25) mg/dL Glucose 98 (74-99) mg/dL Hemoglobin A1c 5.5 (<=6.0) % Calcium 9.5 (8.4-10.2) mg/dL AST 30 (17-59) U/L ALT 23 (4-49) U/L Alkaline Phosphatase 103 (38-126) U/L Total Protein 7.1 (6.3-8.2) g/dL Albumin 4.3 (3.5-5.0) g/dL Calcium panel 07/28/24 Range/Units 18:01 Calcium 9.5 (8.4-10.2) mg/dL Albumin 4.3 (3.5-5.0) g/dL Pituitary panel 07/28/24 07/29/24 Range/Units 18:01 03:22 Sodium 130 L (137-145) mmol/L Potassium 4.3 (3.5-5.1) mmol/L Chloride 98 (98-107) mmol/L Carbon Dioxide 16 L (22-30) mmol/L BUN 14 (9-20) mg/dL Creatinine 1.41 H 1.46 H (0.66-1.25) mg/dL Glucose 98 (74-99) mg/dL Calcium 9.5 (8.4-10.2) mg/dL Adrenal panel 07/28/24 07/29/24 Range/Units 18:01 03:22 Sodium 130 L (137-145) mmol/L Potassium 4.3 (3.5-5.1) mmol/L Chloride 98 (98-107) mmol/L Carbon Dioxide 16 L (22-30) mmol/L BUN 14 (9-20) mg/dL Creatinine 1.41 H 1.46 H (0.66-1.25) mg/dL Glucose 98 (74-99) mg/dL Calcium 9.5 (8.4-10.2) mg/dL Total Bilirubin 1.0 (0.2-1.3) mg/dL AST 30 (17-59) U/L ALT 23 (4-49) U/L Alkaline Phosphatase 103 (38-126) U/L Total Protein 7.1 (6.3-8.2) g/dL Albumin 4.3 (3.5-5.0) g/dL Assessment and Plan Assessment: 1. Left lower extremity dehiscence of surgical incision 2. Hyponatremia 3. Leukocytosis 4. Recent left lower extremity femoral to popliteal bypass with CryoVein 5. Peripheral neuropathy 6. Diabetes mellitus 7. Atrial fibrillation on anticoagulation 8. Nicotine dependence 9. Alcohol use Plan: 1. N.p.o. after midnight 2. Hold Plavix and Eliquis 3. Continue antibiotics per medical team 4. Will plan for wound exploration with washout and possible wound VAC tomorrow 5. Recommend smoking cessation 6. Rest of medical management per primary medical team Thank you for this consultation, we will continue to follow. The impression and plan of care has been dictated as directed. Dr. Vinita Jovel I performed a history and examination of this patient, discussed the same with the dictator. I agree with the dictator's note ,documented as a scribe. Any additional findings or plans will be noted.
[2024-07-29 11:29] LABS: Glucose,Whole Blood 110 mg/dL (70-110)
--- NOTE | 2024-07-29 15:29 | P.HPIM ---
History of Present Illness H&P Date: 07/29/24 Patient is a 64-year-old male with atrial fibrillation (on Eliquis), diabetes, hyperlipidemia, hypertension, sleep apnea, anxiety, history of DVT, PAD s/ stent and bypass, BPH, history of MRSA of the left ankle here for complaint of bleeding and pain at his incision site. Patient reported that on 06/26 he had a femoral to popliteal bypass with Dr. Nuno and his wound has not healed properly since then. Today, he now noted serosanguineous discharge which is worse when he tries to weight-bear on the leg and increased redness around his incision site. Also reported burning pain from the incision site down to the foot. He denied any trauma, fever, chills. He was recently admitted on 07/09 due to postoperative pain and bleeding from the site with a postoperative hematoma. He was followed up inpatient by his surgeon and reported no plans for intervention at that time. He was sent home on 5 days of Keflex. Since then he has been having continued pain and poor healing of the incision site. On admission: Vitals: Temp 98.8 F, pulse rate 91, RR 18, BP 119/68, O2 saturation 100% on room air Labs: WBC 22.7, hemoglobin 13.8, MCV 89.2, platelet count 240,000, sodium 130, potassium 4.3, bicarb 16, BUN 14, creatinine 1.4, glucose 98, lactic acid 2.9, calcium 9.5. Liver enzyme profiles are within normal limits. Albumin normal at 4.3. ED documentation reviewed. Review of systems: Pertinent positives and negatives as discussed in HPI, a complete review of systems was performed and all other systems are negative. Social history: Tobacco: Former. Quit 2 months ago. active 32 years 1ppd Alcohol: active. 3 beers a day Recreational drugs: no history of recreational or illiit drug use Travel: no history prolonged travel Occupation: retired Physical examination: Vital signs reviewed General: non toxic, no distress, appears at stated age, room air Derm: no unusual rashes/lesions, warm Head: atraumatic, normocephalic, symmetric Eyes: EOMI, anicteric sclera, pupils equal round reactive to light ENT: Nose and ears atraumatic Neck: No cervical lymphadenopathy, trachea midline, supple Mouth: no lip lesion, mucus membranes moist Cardiovascular: S1S2 reg, no murmur Lungs: CTA bilateral, no rhonchi, no rales, no accessory muscle use Abdominal: soft, nondistended, nontender to palpation, no guarding Ext: muscle strength 5 out of 5 in all 4 extremities grossly, no gross muscle a trophy, no contractures, positive dorsalis pedis pulse bilateral, no edema, incision site of left inner calf open at three sites, no oozing or purulent discharge, no erythema of surrounding skin Neuro: CN II-XI grossly intact, no gross focal neuro deficits Psych: Alert and oriented x 3, appropriate affect and mood Assessment/Plan: The patient is admitted with an anticipated greater than 2 midnight stay for evaluation of wound dehiscence on the left lower extremity and acute kidney injury Active: #. Wound dehicense of the left lower extremity #. History of MRSA the left ankle Nonhealing postop wound on left lower extremity Continue with pain control Given cefepime and vancomycin in the ED. continuing vancomycin dosed per pharmacy IV Wound culture ordered Monitor CBC Consult vascular surgery #. Acute Kidney Injury BUN 14, creatinine 1.4. Creatinine today 1.46 Monitor UO and renal function Avoid nephrotoxic agents IVF 0.9 normal saline at 75 cc per hour #. Lactic acidosis, resolved Likely due to metformin use Chronic Conditions: #. Diabetes mellitus -Hemoglobin A1c 5.5 -Hold home medications -Glucose Accu-Cheks ACHS -Initiate Insulin sliding scale ACHS -Monitor for hypoglycemia #. Atrial fibrillation (on Eliquis) #. Hyperlipidemia #. Hypertension #. Sleep apnea #. Anxiety #. History of DVT #. PAD s/ stent and bypass #. BPH Continue with amlodipine 10 mg p.o., Lipitor 40 mg p.o., fluoxetine 20 mg p.o., losartan 25 mg p.o., metoprolol tartrate 25 mg p.o. twice daily, Protonix 40 mg p.o. DVT ppx: SCDs. Eliquis and clopidogrel held due to bleeding CODE STATUS: Full Discussed with: Patient Anticipated discharge place: Home Breanne Taylor MD PGY-1 Internal Medicine Dictation was produced using [employer] dictation software. please excuse any grammatical, word or spelling errors. Past Medical History Past Medical History: Atrial Fibrillation, Diabetes Mellitus, Deep Vein Thromb osis (DVT), Hyperlipidemia, Hypertension, Myocardial Infarction ([place]), Prostate Disorder, Sleep Apnea/CPAP/BIPAP, Vascular Disorder Additional Past Medical History / Comment(s): L femoral artery occlusion. Hx "mini heart attack/scarring"-pt states per heart ultrasound report from . Cardiomyopathy. PAD. Varicose veins. Enlarged prostate. No CPAP use. Hx of "internal bleeding" after surgery, requiring blood transfusion. Abdominal Aortic Aneurysm- not operable 1.3 cm Last Myocardial Infarction Date:: pt unsure of exact date History of Any Multi-Drug Resistant Organisms: MRSA Date of last positivie culture/infection: 07/05/21 MDRO Source:: Left Ankle Past Surgical History: Joint Replacement Additional Past Surgical History / Comment(s): Stent to R leg, vein graft R leg, R femoral bypass, 4 stents to L leg-currently occluded, R hip replacement. B/L lower extremity angiogram 05/2024. Past Anesthesia/Blood Transfusion Reactions: No Reported Reaction Additional Past Anesthesia/Blood Transfusion Reaction / Comment(s): Hx of blood tranfusion- no known reactions. Date of Last Stent Placement:: Unknown Past Psychological History: Anxiety Additional Psychological History / Comment(s): Takes Prozac daily Smoking Status: Former smoker Past Alcohol Use History: Daily Additional Past Alcohol Use History / Comment(s): Has been smoking for 30 yrs, has not smoked since 06/09/24. Was smoking 1 ppd. Drinks 2-3 beers daily Past Drug Use History: None Reported - Past Family History Mother Family Medical History: Diabetes Mellitus, Deep Vein Thrombosis (DVT), Hypertension, Myocardial Infarction ([place]) Additional Family Medical History / Comment(s): Mother had blood clot in L leg/foot, L foot amputation due to gangrene. Passed from heart attack. Family history of varicose veins. Father Family Medical History: CVA/TIA, Myocardial Infarction ([place]) Medications and Allergies Home Medications Medication Instructions Recorded Confirmed Type Apixaban [Eliquis] 5 mg PO BID #60 tab 06/12/24 07/28/24 Rx Atorvastatin [Lipitor] 40 mg PO HS #30 tab 06/12/24 07/28/24 Rx Clopidogrel [Plavix] 75 mg PO DAILY #30 tab 06/12/24 07/28/24 Rx FLUoxetine HCL [PROzac] 20 mg PO DAILY #30 cap 06/12/24 07/28/24 Rx Losartan [Cozaar] 25 mg PO DAILY #30 tab 06/12/24 07/28/24 Rx Metoprolol Tartrate [Lopressor] 25 mg PO BID #60 tab 06/12/24 07/28/24 Rx Pantoprazole [Protonix] 40 mg PO AC-BRKFST #30 tab 06/12/24 07/28/24 Rx amLODIPine [Norvasc] 10 mg PO DAILY #30 tab 06/12/24 07/28/24 Rx Sacubitril/Valsartan [Entresto 24 1 tab PO BID 06/23/24 07/28/24 History mg-26 mg Tablet] metFORMIN HCL [Glucophage] 500 mg PO BID 06/23/24 07/28/24 History HYDROcodone/APAP 5-325MG [[place] 1 tab PO Q4HR PRN 07/10/24 07/28/24 History 5-325] Gabapentin [Neurontin] 300 mg PO DIRECTED 07/28/24 07/28/24 History Amoxic-Pot Clav 875-125Mg 1 tab PO Q12HR 10 Days #20 tab 08/01/24 Rx [Augmentin 875-125] Allergies Allergy/AdvReac Type Severity Reaction Status Date / Time No Known Allergies Allergy Verified 07/30/24 13:20 Physical Exam Vitals: Vital Signs Temp Pulse Pulse Resp BP BP Pulse Ox 07/29/24 07:44 98.1 F 138 H 18 100/68 95 07/29/24 00:58 98.2 F 84 17 150/74 98 07/28/24 20:53 98.3 F 74 16 145/82 98 07/28/24 19:26 98.2 F 72 18 132/73 97 07/28/24 18:55 98.3 F 77 18 142/71 94 L 07/28/24 17:10 98.8 F 91 18 119/68 100 Intake and Output 07/28/24 07/29/24 07/29/24 22:59 06:59 14:59 Intake Total 480 1080 Output Total 225 Balance 480 855 Intake: Oral 480 1080 Output: Urine 225 Other: Voiding Method Urinal Weight 76.657 kg Results CBC & Chem 7: 07/31/24 03:17 08/01/24 07:14 Labs: Abnormal Lab Results - Last 24 Hours (Table) 07/28/24 07/28/24 07/28/24 Range/Units 18:01 18:01 18:01 WBC 22.72 H (4.50-10.00) 10*3/uL Immature Gran # 0.22 H (0.00-0.04) 10*3/uL Neutrophils # 20.13 H (1.80-7.70) 10*3/uL Monocytes # 1.33 H (0.20-1.00) 10*3/uL Eosinophils # 0.00 L (0.04-0.35) 10*3/uL Sodium 130 L (137-145) mmol/L Carbon Dioxide 16 L (22-30) mmol/L Creatinine 1.41 H (0.66-1.25) mg/dL POC Glucose (mg/dL) (70-110) mg/dL Plasma Lactic Acid Juancarlos 2.9 H* (0.7-2.0) mmol/L 07/28/24 07/29/24 07/29/24 Range/Units 20:51 03:22 06:08 WBC (4.50-10.00) 10*3/uL Immature Gran # (0.00-0.04) 10*3/uL Neutrophils # (1.80-7.70) 10*3/uL Monocytes # (0.20-1.00) 10*3/uL Eosinophils # (0.04-0.35) 10*3/uL Sodium (137-145) mmol/L Carbon Dioxide (22-30) mmol/L Creatinine 1.46 H (0.66-1.25) mg/dL POC Glucose (mg/dL) 116 H 128 H (70-110) mg/dL Plasma Lactic Acid Juancarlos (0.7-2.0) mmol/L Thrombosis Risk Factor Assmnt - Choose All That Apply Each Factor Represents 1 point: Swollen legs (current), Varicose veins Each Risk Factor Represents 2 Points: Age 61-74 years Each Risk Factor Represents 3 Points: History of DVT/PE Thrombosis Risk Factor Assessment Total Risk Factor Score: 7 Thrombosis Risk Factor Assessment Level: High Risk Assessment and Plan Assessment: Attestation Attestation/ Color Card Maker Note: Attestation to H&P, Participation (I saw and evaluated the patient with the Resident, and I reviewed and discussed the patient with the Resident and agree with the Resident's findings and plans as documented above., management reviewed and discussed), I agree with findings & plan, Provider Signature (TAMMY PATTERSON, GURPREET Singh. Time with Patient: Greater than 30
[2024-07-29 16:45] LABS: Glucose,Whole Blood 107 mg/dL (70-110)
[2024-07-29 20:13] LABS: Glucose,Whole Blood 126 mg/dL (70-110)
[2024-07-29] MEDS: HEPARIN SODIUM,PORCINE 5,000 UNIT/ML 1 ML VIAL SQ SCH (20:48)
[2024-07-29] MEDS: ATORVASTATIN 40 MG TAB PO SCH (20:50)
[2024-07-30 06:15] LABS: Glucose,Whole Blood 106 mg/dL (70-110)
[2024-07-30] MEDS: VANCOMYCIN TROUGH DUE 1 EACH MISC MISCELLANE ONE (06:16)
[2024-07-30 06:34] LABS: HCT 34.8 % (39.6-50.0); HGB 11.7 g/dL (13.0-17.0); MCHC 33.6 g/dL (32.0-37.0); MCV 89.2 fL (80.0-97.0); Mean Platelet Volume 10.7 fL (9.5-12.2); Platelet Count 237 10*3/uL (140-440); RDW 17.6 % (11.5-14.5); WBC 9.56 10*3/uL (4.50-10.00)
[2024-07-30 06:48] LABS: African American GFR (CKD) >90 (>60 ml/min/1.73 sqM); Anion Gap 7 mmol/L; Blood Urea Nitrogen 12 mg/dL (9-20); Calcium 8.7 mg/dL (8.4-10.2); Carbon Dioxide 21 mmol/L (22-30); Chloride 108 mmol/L (98-107); Glucose 95 mg/dL (74-99); Non-African American GFR(CKD) 83 (>60 ml/min/1.73 sqM); Potassium 4.1 mmol/L (3.5-5.1); Sodium 136 mmol/L (137-145)
[2024-07-30 11:16] LABS: Glucose,Whole Blood 98 mg/dL (70-110)
[2024-07-30] MEDS: IV FLUID CONTINUATION 1,000 ML IV ONE ×2 (13:16→16:48)
[2024-07-30 13:23] LABS: Glucose,Whole Blood 70 mg/dL (70-110)
[2024-07-30] MEDS: DEXAMETHASONE SOD PHOSPHATE 4 MG/ML 1 ML VIAL IVP STA (13:49)
[2024-07-30] MEDS: ONDANSETRON 4 MG/2 ML VIAL IVP STA (13:50)
[2024-07-30] MEDS: FAMOTIDINE 20 MG/2 ML VIAL IV STA (13:51)
[2024-07-30] MEDS ORDERED: LIDOCAINE 1% INJ 10MG/ML (20 ML MDV) ONE (15:11)
[2024-07-30] MEDS ORDERED: PROPOFOL 10 MG/ML 20 ML VIAL IV ONE (15:11)
[2024-07-30] MEDS ORDERED: fentaNYL (PF) 50 MCG/ML 2 ML AMP ONE (15:11)
[2024-07-30] MEDS ORDERED: MIDAZOLAM 2 MG/2 ML VIAL ONE (15:11)
[2024-07-30] MEDS ORDERED: ePHEDrine 50 MG/ML 1 ML VIAL ONE (15:11)
[2024-07-30] MEDS: ceFAZolin 2 GM in SODIUM CHLORIDE 0.9% 500 ML 500 ML IRRIGATION ONE ×3 (15:15)
[2024-07-30 16:16] LABS: Glucose,Whole Blood 118 mg/dL (70-110)
--- NOTE | 2024-07-30 16:24 | P.PN ---
Subjective Progress Note Date: 07/30/24 Patient is a 64-year-old male with atrial fibrillation (on Eliquis), diabetes, hyperlipidemia, hypertension, sleep apnea, anxiety, history of DVT, PAD s/ stent and bypass, BPH, history of MRSA of the left ankle here for complaint of bleeding and pain at his incision site. Patient reported that on 06/26 he had a femoral to popliteal bypass with Dr. Nuno and his wound has not healed properly since then. Today, he now noted serosanguineous discharge which is worse when he tries to weight-bear on the leg and increased redness around his incision site. Also reported burning pain from the incision site down to the foot. He denied any trauma, fever, chills. He was recently admitted on 07/09 due to posto perative pain and bleeding from the site with a postoperative hematoma. He was followed up inpatient by his surgeon and reported no plans for intervention at that time. He was sent home on 5 days of Keflex. Since then he has been having continued pain and poor healing of the incision site. On admission: Vitals: Temp 98.8 F, pulse rate 91, RR 18, BP 119/68, O2 saturation 100% on room air Labs: WBC 22.7, hemoglobin 13.8, MCV 89.2, platelet count 240,000, sodium 130, potassium 4.3, bicarb 16, BUN 14, creatinine 1.4, glucose 98, lactic acid 2.9, calcium 9.5. Liver enzyme profiles are within normal limits. Albumin normal at 4.3. 07/30/2024 patient seen and examined at bedside. No acute events overnight. For wound exploration with washout and possible wound VAC today. Labs: WBC 9.5, hemoglobin 11.7, MCV 89.2, platelet count 237,000, sodium 136, potassium 4.1, chloride 108, bicarb 21, BUN 12, creatinine 0.97, glucose 95, calcium 8.7 Review of systems: Pertinent positives and negatives as discussed in HPI, a complete review of systems was performed and all other systems are negative. Social history: Tobacco: Former. Quit 2 months ago. active 32 years 1ppd Alcohol: active. 3 beers a day Recreational drugs: no history of recreational or illiit drug use Travel: no history prolonged travel Occupation: retired Physical examination: Vital signs reviewed General: non toxic, no distress, appears at stated age, room air Derm: no unusual rashes/lesions, warm Head: atraumatic, normocephalic, symmetric Eyes: EOMI, anicteric sclera, pupils equal round reactive to light ENT: Nose and ears atraumatic Neck: No cervical lymphadenopathy, trachea midline, supple Mouth: no lip lesion, mucus membranes moist Cardiovascular: S1S2 reg, no murmur Lungs: CTA bilateral, no rhonchi, no rales, no accessory muscle use Abdominal: soft, nondistended, nontender to palpation, no guarding Ext: muscle strength 5 out of 5 in all 4 extremities grossly, no gross muscle atrophy, no contractures, positive dorsalis pedis pulse bilateral, no edema, incision site of left inner calf open at three sites, no oozing or purulent discharge, no erythema of surrounding skin Neuro: CN II-XI grossly intact, no gross focal neuro deficits Psych: Alert and oriented x 3, appropriate affect and mood Assessment/Plan: The patient is admitted with an anticipated greater than 2 midnight stay for evaluation of wound dehiscence on the left lower extremity and acute kidney injury Active: #. Wound dehicense of the left lower extremity #. History of MRSA the left ankle Nonhealing postop wound on left lower extremity Continue with pain control Given cefepime and vancomycin in the ED. continuing vancomycin dosed per pharmacy IV Wound culture pending Blood culture pending Monitor CBC Consult vascular surgery. For wound exploration with washout today #. Acute Kidney Injury, improved BUN 14, creatinine 1.4. Creatinine today 0.97 Monitor UO and renal function Avoid nephrotoxic agents Discontinue IV fluids #. Lactic acidosis, resolved Likely due to metformin use Chronic Conditions: #. Diabetes mellitus -Hemoglobin A1c 5.5 -Hold home medications -Glucose Accu-Cheks ACHS -Initiate Insulin sliding scale ACHS -Monitor for hypoglycemia #. Atrial fibrillation (on Eliquis) #. Hyperlipidemia #. Hypertension #. Sleep apnea #. Anxiety #. History of DVT #. PAD s/ stent and bypass #. BPH Continue with Lipitor 40 mg p.o., fluoxetine 20 mg p.o., losartan 25 mg p.o., metoprolol tartrate 25 mg p.o. twice daily, Protonix 40 mg p.o. Amlodipine decreased to 5mg p.o DVT ppx: SCDs. Eliquis and clopidogrel held due to bleeding CODE STATUS: Full Discussed with: Patient Anticipated discharge place: Home Breanne Taylor MD PGY-1 Internal Medicine Dictation was produced using [employer] dictation software. please excuse any grammatical, word or spelling errors Attestation: I have seen and examined this patient with my resident, assessment and plan discussed with the resident, agree with assessment and plan as written above. Dr. Costello Objective - Vital Signs Vital signs: Vital Signs Temp 98.5 F 07/30/24 06:40 Pulse 79 07/30/24 06:40 Resp 17 07/30/24 06:40 BP 118/70 07/30/24 06:40 Pulse Ox 97 07/30/24 06:40 FiO2 Intake & Output 07/29/24 07/30/24 07/30/24 18:59 06:59 18:59 Intake Total 670 Output Total 800 1050 Balance -130 -1050 Intake: Oral 670 Output: Urine 800 1050 Other: Voiding Method Urinal # Voids 1 6 - Labs CBC & Chem 7: 07/30/24 05:57 07/30/24 05:57 Labs: Abnormal Lab Results - Last 24 Hours (Table) 07/29/24 07/30/24 07/30/24 Range/Units 20:12 05:57 05:57 RBC 3.90 L (4.40-5.60) 10*6/uL Hgb 11.7 L (13.0-17.0) g/dL Hct 34.8 L (39.6-50.0) % RDW 17.6 H (11.5-14.5) % Sodium 136 L (137-145) mmol/L Chloride 108 H (98-107) mmol/L Carbon Dioxide 21 L (22-30) mmol/L POC Glucose (mg/dL) 126 H (70-110) mg/dL Microbiology - Last 24 Hours (Table) 07/28/24 18:01 Blood Culture - Preliminary Blood 07/28/24 18:01 Gram Stain - Preliminary Leg - Left
[2024-07-30] MEDS: HYDROmorphone 0.5 MG/0.5 ML SYRINGE IVP PRN (16:36)
[2024-07-30] MEDS: SODIUM CHLORIDE 0.9% 1,000 ML IV ONE (16:48)
[2024-07-30 17:17] LABS: Glucose,Whole Blood 124 mg/dL (70-110)
[2024-07-30 20:17] LABS: Glucose,Whole Blood 138 mg/dL (70-110)
[2024-07-30] MEDS: VANCOMYCIN 1,250 MG in SODIUM CHLORIDE 0.9% 250 ML IVPB SCH (21:04)
[2024-07-31 04:45] LABS: Basophils # (A) 0.02 10*3/uL (0.00-0.10); Basophils % (A) 0.3 %; HCT 34.2 % (39.6-50.0); HGB 11.2 g/dL (13.0-17.0); Lymphocytes # (A) 0.49 10*3/uL (0.90-5.00); Lymphocytes % (A) 6.7 %; MCH 30.1 pg (27.0-32.0); MCHC 32.7 g/dL (32.0-37.0); MCV 91.9 fL (80.0-97.0); Monocytes % (A) 4.1 %; Neutrophils # (A) 6.47 10*3/uL (1.80-7.70); Neutrophils % (A) 88.4 %; Platelet Count 261 10*3/uL (140-440); RBC 3.72 10*6/uL (4.40-5.60); RDW 17.6 % (11.5-14.5); WBC 7.32 10*3/uL (4.50-10.00)
[2024-07-31 04:58] LABS: African American GFR (CKD) >90 (>60 ml/min/1.73 sqM); Anion Gap 12 mmol/L; Blood Urea Nitrogen 13 mg/dL (9-20); Calcium 9.2 mg/dL (8.4-10.2); Carbon Dioxide 19 mmol/L (22-30); Chloride 102 mmol/L (98-107); Glucose 110 mg/dL (74-99); Non-African American GFR(CKD) 78 (>60 ml/min/1.73 sqM); Sodium 133 mmol/L (137-145)
[2024-07-31 06:19] LABS: Glucose,Whole Blood 123 mg/dL (70-110)
[2024-07-31] MEDS: HYDROcodone/APAP 5-325MG 1 EACH TAB PO PRN (06:59)
--- NOTE | 2024-07-31 07:35 | P.OP ---
Date of Procedure: 07/31/24 Description of Procedure: Preoperative diagnosis: Left femoral to below-knee popliteal bypass with CryoVein, nonhealing wound Postoperative diagnosis: Same Procedure: Sharp excisional debridement left popliteal incision measuring 13 x 2.5 x 1.7 cm to muscle Initiation of negative pressure wound VAC therapy Surgeon: Karolina Nuno D.O. EBL: 5 cc IV fluids: See records Urine output: Not measured Drains: None Complications: None immediately apparent Condition: Stable Operative indication and findings: Patient is a 64-year-old male with previous femoral to below-knee bypass and nonhealing wound with serous drainage. Due to this he was recommended to undergo operative debridement. Risk and benefits wer e discussed. She understands and is willing to proceed. Procedure in detail: Patient was brought to the op suite placed in supine position. Left lower extremity was prepped and draped in usual sterile fashion. A preprocedural timeout was performed, all parties were in agreement. The incision was opened through the areas of dehiscence and the s serous fibrinous fluid was removed. The did not do seem to be significant amount of purulent drainage however culture was obtained due to the open wound nature and previous bypass. The area was irrigated. A curette was utilized to debride the tissue as well as the muscle with the fibrinous tissue. Once this was adequately debrided to healthy appearing tissue, a wound VAC was placed and applied with no evidence of leak. The patient was transferred to recovery in stable condition having tolerated the procedure well. Of note his toes look significantly improved from previous visualization, there is no further areas of necrotic tissue. The dry skin Was peeled away revealing healthy appearing tissue
[2024-07-31] MEDS: amLODIPine 5 MG TAB PO SCH (08:11)
[2024-07-31 11:17] LABS: Glucose,Whole Blood 112 mg/dL (70-110)
--- NOTE | 2024-07-31 12:04 | P.PN ---
Subjective Progress Note Date: 07/31/24 Patient is seen and examined today as a follow-up. Yesterday he underwent left lower extremity bypass incision debridement and washout with wound VAC application. Patient states overall pain is well-controlled. He has no pain down the lower extremity just some neuropathy. Cultures are pending. Wound VAC is intact with good suction. He is without any other complaints. He has been afebrile. Objective - Vital Signs Vital signs: Vital Signs Temp 97.7 F 07/31/24 06:58 Pulse 70 07/31/24 06:58 Resp 16 07/31/24 06:58 BP 158/86 07/31/24 06:58 Pulse Ox 95 07/31/24 06:58 FiO2 Intake & Output 07/30/24 07/31/24 07/31/24 18:59 06:59 18:59 Intake Total 851 360 Output Total 405 Balance 446 360 Intake: IV 851 Oral 360 Output: Urine 400 Estimated Blood Loss 5 Other: Voiding Method Urinal # Voids 3 4 - Exam General appearance: The patient is alert, oriented, appears in no acute distress. HET: Head is normocephalic and atraumatic. Pupils are equal and reactive. Neck: Supple. Heart: Regular. Lungs: Equal expansion, normal respiratory effort. Abdomen: Soft, nondistended. Extremities: Left lower extremity warm to the touch, medial calf incision with wound VAC in place with good suction. Palpable PT pulse. Sensorimotor intact. Multiple varicosities. Neurological: No focal deficits. Strength and sensation are grossly intact. - Labs CBC & Chem 7: 07/31/24 03:17 07/31/24 03:17 Labs: Abnormal Lab Results - Last 24 Hours (Table) 07/30/24 07/30/24 07/30/24 Range/Units 16:15 17:16 20:16 RBC (4.40-5.60) 10*6/uL Hgb (13.0-17.0) g/dL Hct (39.6-50.0) % RDW (11.5-14.5) % Lymphocytes # (0.90-5.00) 10*3/uL Eosinophils # (0.04-0.35) 10*3/uL Sodium (137-145) mmol/L Carbon Dioxide (22-30) mmol/L Glucose (74-99) mg/dL POC Glucose (mg/dL) 118 H 124 H 138 H (70-110) mg/dL 07/31/24 07/31/24 07/31/24 Range/Units 03:17 03:17 06:18 RBC 3.72 L (4.40-5.60) 10*6/uL Hgb 11.2 L (13.0-17.0) g/dL Hct 34.2 L (39.6-50.0) % RDW 17.6 H (11.5-14.5) % Lymphocytes # 0.49 L (0.90-5.00) 10*3/uL Eosinophils # 0.00 L (0.04-0.35) 10*3/uL Sodium 133 L (137-145) mmol/L Carbon Dioxide 19 L (22-30) mmol/L Glucose 110 H (74-99) mg/dL POC Glucose (mg/dL) 123 H (70-110) mg/dL Microbiology - Last 24 Hours (Table) 07/28/24 18:01 Blood Culture - Preliminary Blood 07/28/24 18:01 Gram Stain - Preliminary Leg - Left Wound Culture - Preliminary Gram Neg Bacilli Assessment and Plan Assessment: 1. Left femoral to below-knee pop tail bypass with CryoVein nonhealing wound status post excisional debridement and initiation of wound VAC therapy. 2. Hyponatremia 3. Leukocytosis 4. Recent left lower extremity femoral to popliteal bypass with CryoVein 5. Peripheral neuropathy 6. Diabetes mellitus 7. Atrial fibrillation on anticoagulation 8. Nicotine dependence 9. Alcohol use Plan: 1. Diet as tolerated 2. Resume Plavix and Eliquis 3. Continue antibiotics per medical team, cultures pending 4. Continue wound VAC as ordered change Sunday, then Fridays 5. Recommend smoking cessation 6. Consult to wound care for continued wound care management outpatient follow- up 7. Rest of medical management per primary medical team Thank you for this consultation, we will continue to follow. The impression and plan of care has been dictated as directed. Dr. Vinita Jovel I performed a history and examination of this patient, discussed the same with the dictator. I agree with the dictator's note ,documented as a scribe. Any additional findings or plans will be noted.
--- NOTE | 2024-07-31 14:26 | P.CON ---
Consult Note - . Consult date: 07/31/24 Assessment/Plan:: Wound care consultation: Date of consultation: 07/31/2024 Reason for consultation: open wound status debridement of superficial dehiscence. History of chief complaint: The patient is status post CryoVein femoropopliteal bypass graft. He has had good healing of the toes and currently has a palpable dorsalis pedis pulse. The patient did however develop a dehiscence of the tissues superficial to the muscle. Relevant examination: The patient has recently had his dressings changed and I have discussed the operative findings with Dr. Nuno therefore we did not take down the dressings to examine it today. He has a well-functioning wound VAC in place utilizing black foam over the open wound just below and medial to the left knee. Impression: Status post superficial dehiscence of the left lower leg wound status post CryoVein femoropopliteal bypass with patent bypass graft Recommendation: Having discussed the case with Dr. Nuno we will continue with follow-up in wound care. We will utilize a wound VAC utilizing black foam in the wound with 3 times a week dressing changes. Will utilize standard 125 mmHg negative pressure in a continuous fashion.
[2024-07-31 16:46] LABS: Glucose,Whole Blood 95 mg/dL (70-110)
[2024-07-31] MEDS: AMPICILLIN-SULBACTAM 3 GM in SODIUM CHLORIDE 0.9% 100 ML IVPB SCH (17:14)
--- NOTE | 2024-07-31 17:24 | P.PN ---
Subjective Progress Note Date: 07/31/24 Patient is a 64-year-old male with atrial fibrillation (on Eliquis), diabetes, hyperlipidemia, hypertension, sleep apnea, anxiety, history of DVT, PAD s/ stent and bypass, BPH, history of MRSA of the left ankle here for complaint of bleeding and pain at his incision site. Patient reported that on 06/26 he had a femoral to popliteal bypass with Dr. Nuno and his wound has not healed properly since then. Today, he now noted serosanguineous discharge which is worse when he tries to weight-bear on the leg and increased redness around his incision site. Also reported burning pain from the incision site down to the foot. He denied any trauma, fever, chills. He was recently admitted on 07/09 due to posto perative pain and bleeding from the site with a postoperative hematoma. He was followed up inpatient by his surgeon and reported no plans for intervention at that time. He was sent home on 5 days of Keflex. Since then he has been having continued pain and poor healing of the incision site. On admission: Vitals: Temp 98.8 F, pulse rate 91, RR 18, BP 119/68, O2 saturation 100% on room air Labs: WBC 22.7, hemoglobin 13.8, MCV 89.2, platelet count 240,000, sodium 130, potassium 4.3, bicarb 16, BUN 14, creatinine 1.4, glucose 98, lactic acid 2.9, calcium 9.5. Liver enzyme profiles are within normal limits. Albumin normal at 4.3. 07/30/2024 patient seen and examined at bedside. No acute events overnight. For wound exploration with washout and possible wound VAC today. Labs: WBC 9.5, hemoglobin 11.7, MCV 89.2, platelet count 237,000, sodium 136, potassium 4.1, chloride 108, bicarb 21, BUN 12, creatinine 0.97, glucose 95, calcium 8.7 07/31/2024 patient seen and examined at bedside. No new complaints or symptoms. Patient had excisional debridement of his left femoral to below the knee popliteal bypass nonhealing wound with placement of wound VAC. Cultures were collected Labs: WBC 7.3, hemoglobin 11.2, MCV 91.9, platelet count 261,000, sodium 133, potassium 5, bicarb 19, BUN 13, creatinine 1.02, glucose 110, calcium 9.2. Blood cultures currently negative. Review of systems: Pertinent positives and negatives as discussed in HPI, a complete review of systems was performed and all other systems are negative. Social history: Tobacco: Former. Quit 2 months ago. active 32 years 1ppd Alcohol: active. 3 beers a day Recreational drugs: no history of recreational or illiit drug use Travel: no history prolonged travel Occupation: retired Physical examination: Vital signs reviewed General: non toxic, no distress, appears at stated age, room air Derm: no unusual rashes/lesions, warm Head: atraumatic, normocephalic, symmetric Eyes: EOMI, anicteric sclera, pupils equal round reactive to light ENT: Nose and ears atraumatic Neck: No cervical lymphadenopathy, trachea midline, supple Mouth: no lip lesion, mucus membranes moist Cardiovascular: S1S2 reg, no murmur Lungs: CTA bilateral, no rhonchi, no rales, no accessory muscle use Abdominal: soft, nondistended, nontender to palpation, no guarding Ext: muscle strength 5 out of 5 in all 4 extremities grossly, no gross muscle atrophy, no contractures, positive dorsalis pedis pulse bilateral, no edema, incision site of left inner calf open, sealed with wound VAC, no oozing or purulent discharge, no erythema of surrounding skin Neuro: CN II-XI grossly intact, no gross focal neuro deficits Psych: Alert and oriented x 3, appropriate affect and mood Assessment/Plan: The patient is admitted with an anticipated greater than 2 midnight stay for evaluation of wound dehiscence on the left lower extremity and acute kidney injury Active: #. Wound dehicense of the left lower extremity, status post excisional debridement of his left femoral to below the knee popliteal bypass nonhealing wound with placement of wound VAC POD 1 #. History of MRSA the left ankle Nonhealing postop wound on left lower extremity Continue with pain control Given cefepime and vancomycin in the ED. continuing vancomycin dosed per pharmacy IV Wound culture pending Blood culture negative Monitor CBC Consult vascular surgery. POD 1 of excisional debridement of nonhealing wound. Wound cultures pending. Wound care consulted #. Acute Kidney Injury, improved BUN 14, creatinine 1.4. Creatinine today 1.02 Monitor UO and renal function Avoid nephrotoxic agents #. Lactic acidosis, resolved Likely due to metformin use Chronic Conditions: #. Diabetes mellitus -Hemoglobin A1c 5.5 -Hold home medications -Glucose Accu-Cheks ACHS -Initiate Insulin sliding scale ACHS -Monitor for hypoglycemia #. Atrial fibrillation (on Eliquis) #. Hyperlipidemia #. Hypertension #. Sleep apnea #. Anxiety #. History of DVT #. PAD s/ stent and bypass #. BPH Continue with Lipitor 40 mg p.o., fluoxetine 20 mg p.o., losartan 25 mg p.o., metoprolol tartrate 25 mg p.o. twice daily, Protonix 40 mg p.o. Amlodipine decreased to 5mg p.o Continue Plavix 75mg PO daily DVT ppx: SCDs. Eliquis 5mg po BID CODE STATUS: Full Discussed with: Patient Anticipated discharge place: Home Breanne Taylor MD PGY-1 Internal Medicine Dictation was produced using [employer] dictation software. please excuse any grammatical, word or spelling errors Attestation: I have seen and examined this patient with my resident, assessment and plan discussed with the resident, agree with assessment and plan as written above. Dr. Costello Objective - Vital Signs Vital signs: Vital Signs Temp 97.5 F L 07/31/24 00:55 Pulse 70 07/31/24 00:55 Resp 17 07/30/24 17:17 BP 155/90 07/31/24 00:55 Pulse Ox 94 L 07/31/24 00:55 FiO2 Intake & Output 07/30/24 07/31/24 07/31/24 18:59 06:59 18:59 Intake Total 851 360 Output Total 405 Balance 446 360 Intake: IV 851 Oral 360 Output: Urine 400 Estimated Blood Loss 5 Other: Voiding Method Urinal # Voids 3 4 - Labs CBC & Chem 7: 07/31/24 03:17 07/31/24 03:17 Labs: Abnormal Lab Results - Last 24 Hours (Table) 07/30/24 07/30/24 07/30/24 Range/Units 16:15 17:16 20:16 RBC (4.40-5.60) 10*6/uL Hgb (13.0-17.0) g/dL Hct (39.6-50.0) % RDW (11.5-14.5) % Lymphocytes # (0.90-5.00) 10*3/uL Eosinophils # (0.04-0.35) 10*3/uL Sodium (137-145) mmol/L Carbon Dioxide (22-30) mmol/L Glucose (74-99) mg/dL POC Glucose (mg/dL) 118 H 124 H 138 H (70-110) mg/dL 07/31/24 07/31/24 07/31/24 Range/Units 03:17 03:17 06:18 RBC 3.72 L (4.40-5.60) 10*6/uL Hgb 11.2 L (13.0-17.0) g/dL Hct 34.2 L (39.6-50.0) % RDW 17.6 H (11.5-14.5) % Lymphocytes # 0.49 L (0.90-5.00) 10*3/uL Eosinophils # 0.00 L (0.04-0.35) 10*3/uL Sodium 133 L (137-145) mmol/L Carbon Dioxide 19 L (22-30) mmol/L Glucose 110 H (74-99) mg/dL POC Glucose (mg/dL) 123 H (70-110) mg/dL Microbiology - Last 24 Hours (Table) 07/28/24 18:01 Blood Culture - Preliminary Blood 07/28/24 18:01 Gram Stain - Preliminary Leg - Left Wound Culture - Preliminary Gram Neg Bacilli
[2024-07-31 20:31] LABS: Glucose,Whole Blood 104 mg/dL (70-110)
[2024-07-31] MEDS: APIXABAN 5 MG TAB PO SCH (21:59)
[2024-08-01 06:25] LABS: Glucose,Whole Blood 125 mg/dL (70-110)
[2024-08-01] MEDS ORDERED: VANCOMYCIN TROUGH DUE 1 EACH MISC MISCELLANE ONE (07:00)
[2024-08-01 07:46] LABS: African American GFR (CKD) >90 (>60 ml/min/1.73 sqM); Anion Gap 6 mmol/L; Blood Urea Nitrogen 12 mg/dL (9-20); Calcium 9.2 mg/dL (8.4-10.2); Carbon Dioxide 24 mmol/L (22-30); Chloride 108 mmol/L (98-107); Glucose 90 mg/dL (74-99); Non-African American GFR(CKD) 83 (>60 ml/min/1.73 sqM); Potassium 3.9 mmol/L (3.5-5.1); Sodium 138 mmol/L (137-145)
[2024-08-01] MEDS: CLOPIDOGREL 75 MG TAB PO SCH (09:08)
--- NOTE | 2024-08-01 09:37 | P.PN ---
Subjective Progress Note Date: 08/01/24 No changes overnight. Infectious disease consulted for antibiotic management. Wound culture resulted with findings of clue variant intermedia and Enterococcus faecalis. Patient was seen by wound care with plans for outpatient follow-up patient was caught smoking in his room overnight by the nurse. Objective - Vital Signs Vital signs: Vital Signs Temp 98.0 F 08/01/24 07:16 Pulse 51 L 08/01/24 07:16 Resp 18 08/01/24 07:16 BP 184/82 08/01/24 07:16 Pulse Ox 94 L 08/01/24 07:16 FiO2 Intake & Output 07/31/24 08/01/24 08/01/24 18:59 06:59 18:59 Intake Total 1000 Output Total 700 Balance -700 1000 Intake: Oral 1000 Output: Urine 700 Other: Voiding Method Urinal Urinal - Exam General appearance: The patient is alert, oriented, appears in no acute distress. HET: Head is normocephalic and atraumatic. Pupils are equal and reactive. Neck: Supple. Heart: Regular. Lungs: Equal expansion, normal respiratory effort. Abdomen: Soft, nondistended. Extremities: Left lower extremity warm to the touch, medial calf incision with wound VAC in place with good suction. Palpable PT pulse. Sensorimotor intact. Multiple varicosities. Neurological: No focal deficits. Strength and sensation are grossly intact. - Labs CBC & Chem 7: 07/31/24 03:17 08/01/24 07:14 Labs: Abnormal Lab Results - Last 24 Hours (Table) 07/31/24 08/01/24 08/01/24 Range/Units 11:15 06: 07:14 Chloride 108 H (98-107) mmol/L POC Glucose (mg/dL) 112 H 125 H (70-110) mg/dL Microbiology - Last 24 Hours (Table) 07/28/24 18:01 Blood Culture - Preliminary Blood 07/30/24 15:38 Gram Stain - Preliminary Leg - Left Wound Culture - Preliminary 07/28/24 18:01 Gram Stain - Final Leg - Left Wound Culture - Final Kluvera intermedia Enterococcus faecalis Assessment and Plan Assessment: 1. Left femoral to below-knee pop tail bypass with CryoVein nonhealing wound status post excisional debridement and initiation of wound VAC therapy. 2. Hyponatremia 3. Leukocytosis 4. Recent left lower extremity femoral to popliteal bypass with CryoVein 5. Peripheral neuropathy 6. Diabetes mellitus 7. Atrial fibrillation on anticoagulation 8. Nicotine dependence 9. Alcohol use 10. Plan: 1. Diet as tolerated 2. Resume Plavix and Eliquis 3. Infectious disease consulted for antibiotic recommendations 4. Continue wound VAC as ordered change Sunday, then Fridays 5. Recommend smoking cessation 6. Consult to wound care for continued wound care management outpatient follow- up 7. Rest of medical management per primary medical team Thank you for this consultation, from a vascular surgical standpoint patient is cleared for discharge. We will sign off at this time. The impression and plan of care has been dictated as directed. Dr. Vinita Jovel I performed a history and examination of this patient, discussed the same with the dictator. I agree with the dictator's note ,documented as a scribe. Any additional findings or plans will be noted.
--- NOTE | 2024-08-01 10:07 | P.CONS ---
History of Present Illness - Reason for Consult Consult date: 07/31/24 Antibiotic management, positive culture Requesting physician: Joyce Gutierrez - Chief Complaint Left leg wound pain and drainage x days - History of Present Illness Patient is a 64-year-old male with a past medical history significant for diabetes mellitus hypertension hyperlipidemia OR peripheral vascular disease in this patient who did underwent femoral to below the knee popliteal bypass with CryoVein on 07/06/2024 patient apparently did have hematoma at the lower incision site which has been evacuated on 07/10/2024 patient subsequently presenting to the hospital concerning for increasing pain to the left calf area with increasing swelling incision opened up and drainage patient was describing pain to be sharp moderate intensity without any radiation patient was taken to the OR on 07/31/2024 and is status post sharp excisional debridement left poplite al incision down to the muscle there was some fluid but no significant purulence secretion cultures were obtained on 07/28/2024 which came back positive for Enterococcus faecalis and Kluvera intermedia patient is currently on vancomycin infectious disease was consulted for further management of antibiotic therapy patient has been afebrile during this hospital stay he did have elevated white count of 22.72 on admission creatinine was elevated however both white count increased and is currently normalized Review of Systems Positive point and negatives has been mentioned in the HPI, complete review of systems was performed and all other systems are negative Past Medical History Past Medical History: Atrial Fibrillation, Diabetes Mellitus, Deep Vein Thrombosis (DVT), Hyperlipidemia, Hypertension, Myocardial Infarction (OR), P rostate Disorder, Sleep Apnea/CPAP/BIPAP, Vascular Disorder Additional Past Medical History / Comment(s): L femoral artery occlusion. Hx "mini heart attack/scarring"-pt states per heart ultrasound report from . Cardiomyopathy. PAD. Varicose veins. Enlarged prostate. No CPAP use. Hx of "internal bleeding" after surgery, requiring blood transfusion. Abdominal Aortic Aneurysm- not operable 1.3 cm Last Myocardial Infarction Date:: pt unsure of exact date History of Any Multi-Drug Resistant Organisms: MRSA Year Discovered:: 07/05/21 MDRO Source:: Left Ankle Past Surgical History: Joint Replacement Additional Past Surgical History / Comment(s): Stent to R leg, vein graft R leg, R femoral bypass, 4 stents to L leg-currently occluded, R hip replacement. B/L lower extremity angiogram 05/2024. Past Anesthesia/Blood Transfusion Reactions: No Reported Reaction Additional Past Anesthesia/Blood Transfusion Reaction / Comm: Hx of blood tranfusion- no known reactions. Date of Last Stent Placement:: Unknown Past Psychological History: Anxiety Additional Psychological History / Comment(s): Takes Prozac daily Smoking Status: Former smoker Past Alcohol Use History: Daily Additional Past Alcohol Use History / Comment(s): Has been smoking for 30 yrs, has not smoked since 06/09/24. Was smoking 1 ppd. Drinks 2-3 beers daily Past Drug Use History: None Reported - Past Family History Mother Family Medical History: Diabetes Mellitus, Deep Vein Thrombosis (DVT), Hypertension, Myocardial Infarction (OR) Additional Family Medical History / Comment(s): Mother had blood clot in L leg/foot, L foot amputation due to gangrene. Passed from heart attack. Family history of varicose veins. Father Family Medical History: CVA/TIA, Myocardial Infarction (OR) Medications and Allergies Home Medications Medication Instructions Recorded Confirmed Type Apixaban [Eliquis] 5 mg PO BID #60 tab 06/12/24 07/28/24 Rx Atorvastatin [Lipitor] 40 mg PO HS #30 tab 06/12/24 07/28/24 Rx Clopidogrel [Plavix] 75 mg PO DAILY #30 tab 06/12/24 07/28/24 Rx FLUoxetine HCL [PROzac] 20 mg PO DAILY #30 cap 06/12/24 07/28/24 Rx Losartan [Cozaar] 25 mg PO DAILY #30 tab 06/12/24 07/28/24 Rx Metoprolol Tartrate [Lopressor] 25 mg PO BID #60 tab 06/12/24 07/28/24 Rx Pantoprazole [Protonix] 40 mg PO AC-BRKFST #30 tab 06/12/24 07/28/24 Rx amLODIPine [Norvasc] 10 mg PO DAILY #30 tab 06/12/24 07/28/24 Rx Sacubitril/Valsartan [Entresto 24 1 tab PO BID 06/23/24 07/28/24 History mg-26 mg Tablet] metFORMIN HCL [Glucophage] 500 mg PO BID 06/23/24 07/28/24 History HYDROcodone/APAP 5-325MG [Thornton 1 tab PO Q4HR PRN 07/10/24 07/28/24 History 5-325] Cephalexin [Keflex] 500 mg PO DIRECTED 07/28/24 07/28/24 History Gabapentin [Neurontin] 300 mg PO DIRECTED 07/28/24 07/28/24 History Allergies Allergy/AdvReac Type Severity Reaction Status Date / Time No Known Allergies Allergy Verified 07/30/24 13:20 Physical Exam Vitals: Vital Signs Temp Pulse Resp BP BP Pulse Ox 07/31/24 13:42 97.8 F 59 L 16 144/77 96 07/31/24 06:58 97.7 F 70 16 158/86 95 07/31/24 00:55 97.5 F L 70 155/90 94 L 07/30/24 19:17 68 128/79 95 07/30/24 19:03 68 128/75 96 07/30/24 18:48 70 126/92 97 07/30/24 18:32 71 132/74 95 07/30/24 18:17 76 117/67 96 07/30/24 17:55 72 128/76 07/30/24 17:48 72 128/76 95 07/30/24 17:33 74 124/76 95 07/30/24 17:17 97.7 F 71 17 120/66 93 L 07/30/24 17:00 70 16 131/82 98 Intake and Output 07/31/24 07/31/24 07/31/24 06:59 14:59 22:59 Intake Total 360 Balance 360 Intake: Oral 360 Other: Voiding Method Urinal # Voids 4 GENERAL DESCRIPTION: Middle-age male lying in bed, no distress. No tachypnea or accessory muscle of respiration use. HEENT: Shows Pallor , no scleral icterus. Oral mucous membrane is dry. NECK: Trachea central, no thyromegaly. LUNGS: Unlabored breathing. Clear to auscultation anteriorly. No wheeze or crackle. HEART: S1, S2, regular rate and rhythm. No loud murmur ABDOMEN: Soft, no tenderness , guarding or rigidity, no organomegaly EXTREMITIES: Left leg wound is currently covered with a wound VAC SKIN: No rash, no masses palpable. NEUROLOGICAL: The patient is awake, alert, oriented x3, mood and affect normal. Results CBC & Chem 7: 07/31/24 03:17 08/01/24 07:14 Labs: Abnormal Lab Results - Last 24 Hours (Table) 07/30/24 07/30/24 07/31/24 Range/Units 17:16 20:16 03:17 RBC (4.40-5.60) 10*6/uL Hgb (13.0-17.0) g/dL Hct (39.6-50.0) % RDW (11.5-14.5) % Lymphocytes # (0.90-5.00) 10*3/uL Eosinophils # (0.04-0.35) 10*3/uL Sodium 133 L (137-145) mmol/L Carbon Dioxide 19 L (22-30) mmol/L Glucose 110 H (74-99) mg/dL POC Glucose (mg/dL) 124 H 138 H (70-110) mg/dL 07/31/24 07/31/24 07/31/24 Range/Units 03:17 06:18 11:15 RBC 3.72 L (4.40-5.60) 10*6/uL Hgb 11.2 L (13.0-17.0) g/dL Hct 34.2 L (39.6-50.0) % RDW 17.6 H (11.5-14.5) % Lymphocytes # 0.49 L (0.90-5.00) 10*3/uL Eosinophils # 0.00 L (0.04-0.35) 10*3/uL Sodium (137-145) mmol/L Carbon Dioxide (22-30) mmol/L Glucose (74-99) mg/dL POC Glucose (mg/dL) 123 H 112 H (70-110) mg/dL Microbiology - Last 24 Hours (Table) 07/28/24 18:01 Gram Stain - Final Leg - Left Wound Culture - Final Kluvera intermedia Enterococcus faecalis 07/28/24 18:01 Blood Culture - Preliminary Blood Assessment and Plan (1) Leg wound, left Current Visit: Yes Status: Acute Code(s): S81.802A - UNSPECIFIED OPEN WOUND, LEFT LOWER LEG, INITIAL ENCOUNTER SNOMED Code(s): 52077764460041658 (2) Left leg cellulitis Current Visit: Yes Status: Acute Code(s): L03.116 - CELLULITIS OF LEFT LOWER LIMB SNOMED Code(s): 47219574122782257 (3) Leukocytosis Current Visit: Yes Status: Acute Code(s): D72.829 - ELEVATED WHITE BLOOD CELL COUNT, UNSPECIFIED SNOMED Code(s): 964326937 Plan: 1patient with recent history of left femoral to below the knee popliteal bypass with a CryoVein with subsequent admission to the hospital with dehiscence of the wound with associated swelling redness and drainage has been diagnosed with a wound infection status post surgical debridement and the culture now growing Enterococcus faecalis and Kluvera intermedia 2-will discontinue vancomycin 3-start the patient on Unasyn 3 g every 6 hours 4-will evaluate the wound tomorrow at the time of wound VAC change to determine his discharge antibiotic therapy We will follow on clinical condition and cultures to further adjust medication if needed Thank you for this consultation we will follow the patient along with you Dictation was produced using [employer] dictation software. please excuse any grammatical, word or spelling errors. Time with Patient: Greater than 30
[2024-08-01 10:56] LABS: Glucose,Whole Blood 91 mg/dL (70-110)
[2024-08-01 14:54] VITALS: BP 149/73; PULSE 66; RESP 17; TEMP 97.5
--- NOTE | 2024-08-01 17:42 | P.DS ---
Providers Date of admission: 07/28/24 19:14 Attending physician: Jie Elizabeth Consults: 07/28/24 18:08 Consult Physician Urgent Consulting Provider: Karolina Rivers Consult Reason/Comments: concern for infection of incision site Do you want consulting provider notified?: Yes, Notify in am 07/31/24 16:29 Consult Physician Routine Consulting Provider: Chary Short Consult Reason/Comments: Antibiotic management, positive wound cultures Do you want consulting provider notified?: Yes Primary care physician: [facility] Course: Hospital Course: Patient is a 64-year-old male with atrial fibrillation (on Eliquis), diabetes, hyperlipidemia, hypertension, sleep apnea, anxiety, history of DVT, PAD s/ stent and bypass, BPH, history of MRSA of the left ankle here for complaint of bleeding and pain at his incision site. Patient reported that on 06/26 he had a femoral to popliteal bypass with Dr. Nuno and his wound has not healed properly since then. Today, he now noted serosanguineous discharge which is worse when he tries to weight-bear on the leg and increased redness around his incision site. Also reported burning pain from the incision site down to the foot. He denied any trauma, fever, chills. He was recently admitted on 07/09 due to postoperative pain and bleeding from the site with a postoperative hematoma. He was followed up inpatient by his surgeon and reported no plans for intervention at that time. He was sent home on 5 days of Keflex. Since then he has been having continued pain and poor healing of the incision site. On admission: Vitals: Temp 98.8 F, pulse rate 91, RR 18, BP 119/68, O2 saturation 100% on room air Labs: WBC 22.7, hemoglobin 13.8, MCV 89.2, platelet count 240,000, sodium 130, potassium 4.3, bicarb 16, BUN 14, creatinine 1.4, glucose 98, lactic acid 2.9, calcium 9.5. Liver enzyme profiles are within normal limits. Albumin normal at 4.3. Patient was admitted for evaluation of wound dehiscence of the left lower extremity and RUBEN. IV fluids, IV antibiotics, pain control, and wound cultures were ordered. Vascular surgery consulted. Infectious disease consulted as patient had a history of MRSA. Excisional debridement of his left femoral to below the knee popliteal bypass nonhealing wound with wound VAC placement was done and wound care was consulted for outpatient follow-up. RUBEN improved throughout hospital stay. No acute complications occurred. Patient is cleared for discharge today with home care on Augmentin for 10 more days and advised to follow-up with wound care center and his PCP on outpatient basis. Final Diagnosis: #. Wound dehicense of the left lower extremity, status post excisional debridement of his left femoral to below the knee popliteal bypass nonhealing wound with placement of wound VAC #. History of MRSA the left ankle #. Acute Kidney Injury, improved #. Lactic acidosis, resolved #. Diabetes mellitus #. Atrial fibrillation (on Eliquis) #. Hyperlipidemia #. Hypertension #. Sleep apnea #. Anxiety #. History of DVT #. PAD s/ stent and bypass #. BPH Physical examination: Vital signs reviewed General: non toxic, no distress, appears at stated age, room air Derm: no unusual rashes/lesions, warm Head: atraumatic, normocephalic, symmetric Eyes: EOMI, anicteric sclera, pupils equal round reactive to light ENT: Nose and ears atraumatic Neck: No cervical lymphadenopathy, trachea midline, supple Mouth: no lip lesion, mucus membranes moist Cardiovascular: S1S2 reg, no murmur Lungs: CTA bilateral, no rhonchi, no rales, no accessory muscle use Abdominal: soft, nondistended, nontender to palpation, no guarding Ext: muscle strength 5 out of 5 in all 4 extremities grossly, no gross muscle atrophy, no contractures, positive dorsalis pedis pulse bilateral, no edema, i ncision site of left inner calf open, sealed with wound VAC, no oozing or purulent discharge, no erythema of surrounding skin Neuro: CN II-XI grossly intact, no gross focal neuro deficits Psych: Alert and oriented x 3, appropriate affect and mood Attestation: I have seen and examined this patient with my resident, assessment and plan discussed with the resident, agree with assessment and plan as written above. Dr. Costello Patient Condition at Discharge: Stable Plan - Discharge Summary Discharge Rx Participant: Yes New Discharge Prescriptions: New Amoxic-Pot Clav 875-125Mg [Augmentin 875-125] 1 tab PO Q12HR 10 Days #20 tab Continue Clopidogrel [Plavix] 75 mg PO DAILY #30 tab Metoprolol Tartrate [Lopressor] 25 mg PO BID #60 tab Sacubitril/Valsartan [Entresto 24 mg-26 mg Tablet] 1 tab PO BID metFORMIN HCL [Glucophage] 500 mg PO BID HYDROcodone/APAP 5-325MG [[place] 5-325] 1 tab PO Q4HR PRN PRN Reason: Mild To Moderate Pain (1 - 6) Gabapentin [Neurontin] 300 mg PO DIRECTED Apixaban [Eliquis] 5 mg PO BID #60 tab Atorvastatin [Lipitor] 40 mg PO HS #30 tab amLODIPine [Norvasc] 10 mg PO DAILY #30 tab Pantoprazole [Protonix] 40 mg PO AC-BRKFST #30 tab FLUoxetine HCL [PROzac] 20 mg PO DAILY #30 cap Losartan [Cozaar] 25 mg PO DAILY #30 tab Discontinued Cephalexin [Keflex] 500 mg PO DIRECTED Discharge Medication List Apixaban [Eliquis] 5 mg PO BID #60 tab 06/12/24 [Rx] Atorvastatin [Lipitor] 40 mg PO HS #30 tab 06/12/24 [Rx] Clopidogrel [Plavix] 75 mg PO DAILY #30 tab 06/12/24 [Rx] FLUoxetine HCL [PROzac] 20 mg PO DAILY #30 cap 06/12/24 [Rx] Losartan [Cozaar] 25 mg PO DAILY #30 tab 06/12/24 [Rx] Metoprolol Tartrate [Lopressor] 25 mg PO BID #60 tab 06/12/24 [Rx] Pantoprazole [Protonix] 40 mg PO AC-BRKFST #30 tab 06/12/24 [Rx] amLODIPine [Norvasc] 10 mg PO DAILY #30 tab 06/12/24 [Rx] Sacubitril/Valsartan [Entresto 24 mg-26 mg Tablet] 1 tab PO BID 06/23/24 [History] metFORMIN HCL [Glucophage] 500 mg PO BID 06/23/24 [History] HYDROcodone/APAP 5-325MG [[place] 5-325] 1 tab PO Q4HR PRN 07/10/24 [History] Gabapentin [Neurontin] 300 mg PO DIRECTED 07/28/24 [History] Amoxic-Pot Clav 875-125Mg [Augmentin 875-125] 1 tab PO Q12HR 10 Days #20 tab 08/01/24 [Rx] Follow up Appointment(s)/Referral(s): NABILA Barry [NON-STAFF] - As Needed (Call [facility] if you have questions about the wound vac. ) [facility], [NON-STAFF] - 1-2 Days ([facility] will call you to schedule your in home nursing and physical therapy visits. Your first visit will be the day after discharge from the hospital. ) Georgina Romo MD [Primary Care Provider] - 1-2 days [facility] [NON-STAFF] - 1 Week (follow up with wound care center once a week.) Activity/Diet/Wound Care/Special Instructions: Activity as tolerated Wound VAC to left lower extremity medial calf wound setting 125 mmHg, continuous, black granufoam. Change Wednesdays and Fridays Discharge Disposition: HOME WITH HOME HEALTH SERVICES
--- NOTE | 2024-08-02 18:30 | P.PN ---
Subjective Progress Note Date: 08/01/24 Principal diagnosis: Reason for follow-up is left leg infected wound and cellulitis Patient is a 64-year-old male with a past medical history significant for diabetes mellitus hypertension hyperlipidemia MA peripheral vascular disease in this patient who did underwent femoral to below the knee popliteal bypass with CryoVein on 07/06/2024 with subsequent admission to the hospital with dehiscence of the lower end of the incision status post I&D cultures came back positive for Enterococcus faecalis and Kluvera intermedia prompted this consultation. On today's evaluation that is 08/01/2024, the patient continues to be afebrile, the patient is on room air and breathing comfortably, the Pt denies having any chest pain or cough, the patient denies having any abdominal pain no vomiting or any diarrhea, the patient pain to the left leg has decreased intensity patient has been cleared for discharge by surgery and admitting team and asking for discharge antibiotics. Patient did have a creatinine of 0.98 no CBC was done today Objective - Vital Signs Vital signs: Vital Signs Temp 98.0 F 08/01/24 07:16 Pulse 51 L 08/01/24 07:16 Resp 18 08/01/24 07:16 BP 184/82 08/01/24 07:16 Pulse Ox 94 L 08/01/24 07:16 FiO2 Intake & Output 07/31/24 08/01/24 08/01/24 18:59 06:59 18:59 Intake Total 1000 Output Total 700 Balance -700 1000 Intake: Oral 1000 Output: Urine 700 Other: Voiding Method Urinal Urinal - Exam GENERAL DESCRIPTION: Middle-age male lying in bed in no distress RESPIRATORY SYSTEM: Unlabored breathing , decreased breath sounds at bases HEART: S1 S2 regular rate and rhythm , ABDOMEN: Soft , no tenderness EXTREMITIES: Left lower extremity wound base looks clean no significant surrounding redness or drainage - Labs CBC & Chem 7: 07/31/24 03:17 08/01/24 07:14 Labs: Abnormal Lab Results - Last 24 Hours (Table) 07/31/24 08/01/24 08/01/24 Range/Units 11:15 06: 07:14 Chloride 108 H (98-107) mmol/L POC Glucose (mg/dL) 112 H 125 H (70-110) mg/dL Microbiology - Last 24 Hours (Table) 07/28/24 18:01 Blood Culture - Preliminary Blood 07/30/24 15:38 Gram Stain - Preliminary Leg - Left Wound Culture - Preliminary 07/28/24 18:01 Gram Stain - Final Leg - Left Wound Culture - Final Kluvera intermedia Enterococcus faecalis Assessment and Plan (1) Leg wound, left Status: Acute Code(s): S81.802A - UNSPECIFIED OPEN WOUND, LEFT LOWER LEG, INITIAL ENCOUNTER SNOMED Code(s): 47161683505563781 (2) Left leg cellulitis Status: Acute Code(s): L03.116 - CELLULITIS OF LEFT LOWER LIMB SNOMED Code(s): 96578026623407414 (3) Leukocytosis Status: Acute Code(s): D72.829 - ELEVATED WHITE BLOOD CELL COUNT, UNSPECIFIED SNOMED Code(s): 433968270 Plan: 1patient with recent history of left femoral to below the knee popliteal bypass with a CryoVein with subsequent admission to the hospital with dehiscence of the wound with associated swelling redness and drainage has been diagnosed with a wound infection status post surgical debridement and the culture now growing Enterococcus faecalis and Kluvera intermedia 2-patient is currently being treated Unasyn 3 g every 6 hours overall wound base looks clean with no significant surrounding redness we will consider 10-day course of oral Augmentin on discharge as no evidence of any deep infection, prescription sent to the pharmacy and close outpatient follow-up Dictation was produced using [employer] dictation software. please excuse any grammatical, word or spelling errors. Time with Patient: Less than 30
== END 2024-08-01 16:16 | disposition home health service (06) | DRG 857 ==
LOC: EC 16:47 → 4SSUR 19:14
PROVIDERS: ADMIT Hospitalist; ATTEND Hospitalist
PROC: 0KBT0ZZ Excision of Left Lower Leg Muscle, Open Approach (ICD-10-PCS; principal; 2024-07-31)
DX: T81.41XA Infection following a procedure, superficial incisional surgical site, initial encounter (principal); E87.1 Hypo-osmolality and hyponatremia; E87.20 Acidosis, unspecified; N17.9 Acute kidney failure, unspecified; B95.2 Enterococcus as the cause of diseases classified elsewhere; E11.51 Type 2 diabetes mellitus with diabetic peripheral angiopathy without gangrene; I10 Essential (primary) hypertension; I71.40 Abdominal aortic aneurysm, without rupture, unspecified; I42.9 Cardiomyopathy, unspecified; T81.31XA Disruption of external operation (surgical) wound, not elsewhere classified, initial encounter; L03.116 Cellulitis of left lower limb; E11.42 Type 2 diabetes mellitus with diabetic polyneuropathy; I48.91 Unspecified atrial fibrillation; T38.3X5A Adverse effect of insulin and oral hypoglycemic [antidiabetic] drugs, initial encounter; Y84.8 Other medical procedures as the cause of abnormal reaction of the patient, or of later complication, without mention of misadventure at the time of the procedure; E78.5 Hyperlipidemia, unspecified; F17.210 Nicotine dependence, cigarettes, uncomplicated; F41.9 Anxiety disorder, unspecified; G47.30 Sleep apnea, unspecified; I25.10 Atherosclerotic heart disease of native coronary artery without angina pectoris; I25.2 Old myocardial infarction; N40.0 Benign prostatic hyperplasia without lower urinary tract symptoms; Z79.01 Long term (current) use of anticoagulants; Z79.02 Long term (current) use of antithrombotics/antiplatelets; Z79.84 Long term (current) use of oral hypoglycemic drugs; Z79.899 Other long term (current) drug therapy; Z82.49 Family history of ischemic heart disease and other diseases of the circulatory system; Z86.14 Personal history of Methicillin resistant Staphylococcus aureus infection; Z86.718 Personal history of other venous thrombosis and embolism; Z96.641 Presence of right artificial hip joint; X58.XXXA Exposure to other specified factors, initial encounter
CPT/HCPCS: 36415; 80048; 80053; 80202; 82565; 83036; 83605; 85025; 85027; 87040; 87070; 87075; 87077; 87186; 87205; 96365; 96366; 96375; 99284